=== PATIENT | female | born 1950 | race Caucasian/White ===

== ENCOUNTER 2017-03-28 21:06 | Emergency (ER) | payer OTHER ==
[2017-03-28 21:17] VITALS: BP 139/85; PULSE 96; TEMP 98.9; BMI 24.0
[2017-03-28] MEDS ORDERED: ASPIRIN 81 MG CHEWABLE TABLETS PO ONE (21:34)
[2017-03-28] MEDS ORDERED: MAG HYDROX/AL HYDROX/SIMETH 30 ML UNIT-DOSE CUP PO ONE (21:53)
[2017-03-28 22:19] LABS: BASO % 0.5 % (0-2.0); EOS % 1.4 % (0-4.5); HEMATOCRIT 45.4 % (32.4-45.2); HEMOGLOBIN 15.3 GM/dL (10.7-15.3); LYMPH % 26.6 % (8-40); MCH 30.8 pg (25.7-33.7); MCHC 33.7 g/dl (32.0-36.0); MEAN CELL VOLUME 91.2 fl (80-96); MEAN PLT VOLUME 8.8 fl (7.5-11.1); MONO % 5.7 % (3.8-10.2); NEUT % 65.8 % (42.8-82.8); PLATELET COUNT 140 K/MM3 (134-434); RBC 4.97 M/mm3 (3.60-5.2); RDW 14.1 % (11.6-15.6); WHITE BLOOD COUNT 10.1 K/mm3 (4.0-10.0)
--- NOTE | 2017-03-28 22:21 | PDOC ---
History of Present Illness - General History Source: Patient Exam Limitations: No Limitations <Rober Rodrigez - Last Filed: 03/28/17 22:21> <RandellShira Otero - Last Filed: 03/28/17 23:31> - General Chief Complaint: Chest Pain Stated Complaint: CHEST PAIN Time Seen by Provider: 03/28/17 21:12 - History of Present Illness Initial Comments: 03/28/17 22:21 The patient is a 67 year old female, with a significant past medical history of diabetes, hypertension and depression/anxiety, who presents to the emergency department with intermittent chest pain and associated shortness of breath since earlier today. The patient reports her pain is localized substernally sand is nonradiating in nature. She denies any associated shoulder/neck/back pain, diaphoresis, palpitations, or lower extremity edema. She denies any fever , chills, cough, headache,syncope, or dizziness. She denies any nausea or vomiting. Patient states she has been increasingly anxious lately, and is requesting medications for her anxiety. Patient reports she was previously on Seroquel, Effexor, Neurontin, and Ambien, but has not had her medications in several months. Patient also states she was previously on Metformin and is not compliant with her medications, because she ran out. During transport to the ER , patient reports her blood sugar was in the 400s. Patient denies any other complaints at this time. Allergies: NKDA Past Surgical History: None reported. Social History: Current everyday smoker(Approximately 1 pack per day for the past 50 years). PCP: Dr. Kc (Rober Rodrigez) Past History <Rober Rodrigez - Last Filed: 03/28/17 22:21> - Past Medical History Anemia: No Asthma: No Cancer: No Cardiac Disorders: No CVA: No COPD: No CHF: No Dementia: No Diabetes: Yes (type 2) GI Disorders: No Disorders: No HTN: No Hypercholesterolemia: No Liver Disease: No Seizures: No Thyroid Disease: No - Surgical History Abdominal Surgery: No Appendectomy: Yes Cardiac Surgery: No Cholecystectomy: No Lung Surgery: No Neurologic Surgery: No Orthopedic Surgery: No - Immunization History Td Vaccination: Yes TDAP Vaccination: Yes Immunization Up to Date: Yes - Suicide/Smoking/Psychosocial Hx Smoking Status: No Smoking History: Current every day smoker Years of Tobacco Use: 0 Have you smoked in the past 12 months: No Number of Cigarettes Smoked Daily: 0 Cigars Per Day: 0 Information on smoking cessation initiated: No Hx Alcohol Use: No Drug/Substance Use Hx: No Substance Use Type: None Hx Substance Use Treatment: No <Shira Mejias - Last Filed: 03/28/17 23:31> - Past Medical History Allergies/Adverse Reactions: Allergies Allergy/AdvReac Type Severity Reaction Status Date / Time No Known Allergies Allergy Verified 03/28/17 21:14 Home Medications: Ambulatory Orders metFORMIN HCL [Glucophage] 1,000 mg PO BID 09/12/12 Gabapentin [Neurontin -] 300 mg PO Q8H PRN 03/28/17 Metformin HCl [Glucophage] 1,000 mg PO BID #60 tablet 03/28/17 Quetiapine Fumarate [Seroquel -] 200 mg PO TID 03/28/17 Venlafaxine HCl ER [Effexor Xr -] 150 mg PO DAILY 03/28/17 Zolpidem Tartrate [Ambien] 10 mg PO HS 03/28/17 Cardiac Specific PMH - Complaint Specific PMHX Pacemaker: No <Shira Mejias - Last Filed: 03/28/17 23:31> Review of Systems - Review of Systems Able to Perform ROS?: Yes <Rober Rodrigez - Last Filed: 03/28/17 22:21> <Shira Mejias - Last Filed: 03/28/17 23:31> - Review of Systems Comments:: 03/28/17 22:21 CONSTITUTIONAL: Absent: fever, no chills, no fatigue EYES: Absent: visual changes ENT: Absent: ear pain, no sore throat CARDIOVASCULAR: Present: chest pain Absent: no palpitations RESPIRATORY: Present: shortness of breath. Absent: cough GI: Absent: abdominal pain, no nausea, no vomiting, no constipation, no diarrhea GENITOURINARY: Absent: dysuria, no frequency, no hematuria MUSKULOSKELETAL: Absent: back pain, no arthralgia, no myalgia SKIN: Absent: rash NEURO: Absent: headache PSYCH: Present: Anxious, requesting medications (Rober Rodrigez) *Physical Exam <Rober Rodrigez - Last Filed: 03/28/17 22:21> <Shira Mejias - Last Filed: 03/28/17 23:31> - Vital Signs Last Vital Signs Temp Pulse Resp BP Pulse Ox 98.9 F 96 H 20 139/85 97 03/28/17 21:15 03/28/17 21:15 03/28/17 21:15 03/28/17 21:15 03/28/17 21:15 - Physical Exam Comments: 03/28/17 22:21 GENERAL: Well developed. Awake and alert. No acute distress. Disheveled poorly kept 67 year old female requesting medications for her anxiety. HEENT: Normocephalic, atraumatic. PERRLA, EOMI. No conjunctival pallor. Sclera are non- icteric. Moist mucous membranes. Oropharynx is clear. NECK: Supple. Full ROM. No JVD. Carotid pulses 2+ and symmetric, without bruits. No thyromegaly. No lymphadenopathy. CARDIOVASCULAR: Regular rate and rhythm. No murmurs, rubs, or gallops. Distal pulses are 2+ and symmetric. PULMONARY: No evidence of respiratory distress. Lungs clear to auscultation bilaterally. No wheezing, rales or rhonchi. ABDOMINAL: Soft. Non-tender. Non-distended. No rebound or guarding. No organomegaly. Normoactive bowel sounds. MUSCULOSKELETAL Normal range of motion at all joints. No bony deformities or tenderness. EXTREMITIES: No cyanosis. No clubbing. No edema. No calf tenderness. SKIN: Warm and dry. Normal capillary refill. No rashes. No jaundice. NEUROLOGICAL: Alert, awake, oriented x3. Cranial nerves 2-12 intact. Normal gait. PSYCHIATRIC: Cooperative. States shes anxious, however appears very calm. Good eye contact. (Rober Rodrigez) ED Treatment Course - LABORATORY CBC & Chemistry Diagram: 03/28/17 22:13 03/28/17 22:13 <Rober Rodrigez - Last Filed: 03/28/17 22:21> - LABORATORY CBC & Chemistry Diagram: 03/28/17 22:13 03/28/17 22:13 <Shira Mejias - Last Filed: 03/28/17 23:31> - ADDITIONAL ORDERS Additional order review: Laboratory Results 03/28/17 03/28/17 03/28/17 23:23 22:46 22:13 Sodium 134 L Potassium 4.5 Chloride 98 Carbon Dioxide 26 Anion Gap 10 BUN 25 H Creatinine 1.0 Creat Clearance w eGFR 55.14 Random Glucose 297 H Calcium 9.0 Magnesium 1.9 Total Bilirubin 0.4 AST 20 ALT 42 Alkaline Phosphatase 124 H Creatine Kinase 36 Troponin I < 0.02 Total Protein 8.4 H Albumin 4.2 Acetone, Qual Trace H Cancelled 03/28/17 22:13 RBC 4.97 MCV 91.2 MCHC 33.7 RDW 14.1 MPV 8.8 D Neutrophils % 65.8 Lymphocytes % 26.6 Monocytes % 5.7 Eosinophils % 1.4 Basophils % 0.5 - RADIOLOGY Radiology Studies Ordered: Category Date Time Status CHEST PA & LAT [RAD] Stat Radiology 03/28/17 21:35 Ordered CHEST X-RAY PORTABLE* [RAD] Stat Radiology 03/28/17 21:52 Taken - Medications Given in the ED: ED Medications Discontinued Medications Generic Name Dose Route Start Last Admin Trade Name Freq PRN Reason Stop Dose Admin Al Hydroxide/Mg Hydroxide 30 ml 03/28/17 21:53 03/28/17 22:40 Mylanta Oral Suspension - PO 03/28/17 21:54 Not Given ONCE ONE Alprazolam 0.5 mg 03/28/17 23:23 03/28/17 23:24 Xanax - PO 03/28/17 23:24 0.5 mg NOW ONE Administration Aspirin 162 mg 03/28/17 21:34 03/28/17 22:40 Asa - PO 03/28/17 21:35 Not Given ONCE ONE Metformin HCl 1,000 mg 03/28/17 23:23 03/28/17 23:23 Glucophage - PO 03/28/17 23:24 1,000 mg NOW ONE Administration *DC/Admit/Observation/Transfer <Rober Rodrigez - Last Filed: 03/28/17 22:21> <Shira Mejias - Last Filed: 03/28/17 23:31> Diagnosis at time of Disposition: Hyperglycemia, Noncompliance with diabetes treatment, Anxiety - Discharge Dispostion Disposition: HOME Condition at time of disposition: Stable - Prescriptions Prescriptions: Metformin HCl [Glucophage] 1,000 mg PO BID #60 tablet - Referrals Referrals: Taco Kc MD [Primary Care Provider] - - Patient Instructions Printed Discharge Instructions: DI for Atypical Chest Pain, DI for Diabetes Type 2, DI for Hyperglycemia -- Adult Additional Instructions: You must followup with your regular physician and please take your medicine for your diabetes - Post Discharge Activity - Attestations Scribe Attestion: 03/28/17 22:22 Documentation prepared by Rober Rodrigez, acting as medical assistant float for Shira Mejias MD. (Rober Rodrigez)
[2017-03-28 22:35] LABS: ALBUMIN 4.2 g/dl (3.4-5.0); ANION GAP 10 (8-16); BLOOD UREA NITROGEN 25 mg/dL (7-18); CHLORIDE 98 mmol/L (98-107); CO2 26 mmol/L (21-32); GLUCOSE,RANDOM 297 mg/dL (74-106); MAGNESIUM 1.9 mg/dL (1.8-2.4); POTASSIUM 4.5 mmol/L (3.5-5.1); SODIUM 134 mmol/L (136-145)
[2017-03-28 22:39] LABS: BILIRUBIN,TOTAL 0.4 mg/dL (0.2-1.0); SGOT/AST 20 U/L (15-37); SGPT/ALT 42 U/L (12-78); TOT PROT 8.4 g/dl (6.4-8.2)
[2017-03-28 22:42] LABS: ALK PHOS 124 U/L (45-117)
[2017-03-28] MEDS ORDERED: ALPRAZolam 0.25 MG TABLET ONE (23:17)
[2017-03-28] MEDS ORDERED: metFORMIN HCL 500 MG TABLET (FP) ONE ×2 (23:17→23:35)
[2017-03-28] MEDS ORDERED: metFORMIN HCL 500 MG TABLET (FP) PO ONE ×2 (23:23→23:28)
[2017-03-28] MEDS ORDERED: ALPRAZolam 0.25 MG TABLET PO ONE (23:23)
--- NOTE | 2017-03-29 16:43 | EKG ---
Test Reason : Blood Pressure : / mmHG Vent. Rate : 094 BPM Atrial Rate : 094 BPM P-R Int : 154 ms QRS Dur : 076 ms QT Int : 344 ms P-R-T Axes : 069 073 042 degrees QTc Int : 430 ms NORMAL SINUS RHYTHM POSSIBLE LEFT ATRIAL ENLARGEMENT BORDERLINE ECG WHEN COMPARED WITH ECG OF 01-MAY-2013 20:43, NO SIGNIFICANT CHANGE WAS FOUND Confirmed by MD Acosta, Derrick ([id number]) on 03/29/2017 4:42:43 PM Referred By: Confirmed By:Derrick Shane MD
== END 2017-03-28 23:44 | disposition home or self-care (01) ==
LOC: JER 21:06
DX: E11.65 Type 2 diabetes mellitus with hyperglycemia (principal); Z79.84 Long term (current) use of oral hypoglycemic drugs; Z91.14 Patient's other noncompliance with medication regimen; F41.8 Other specified anxiety disorders; F17.210 Nicotine dependence, cigarettes, uncomplicated
CPT/HCPCS: 36415; 71045-TC; 80053; 82009; 82550; 83735; 84484; 85025; 93005; 93010; 99283-25

== ENCOUNTER 2018-08-28 00:12 | Inpatient (IN) | payer MEDICARE, OTHER | END 2018-09-07 16:00 | disposition home health service (06) | LOC: JER 00:12 → JERBED 02:54 → J8W 06:16 ==

== ENCOUNTER 2018-09-08 19:43 | Inpatient (IN) | payer MEDICARE, OTHER | END 2018-09-28 14:48 | disposition home health service (06) | LOC: JER 22:39 → J8W 22:20 → JERBED 22:39 ==

== ENCOUNTER 2019-01-26 16:42 | Inpatient (IN) | payer BC, OTHER ==
--- NOTE | 2019-01-26 16:56 | PDOC ---
History of Present Illness - General Chief Complaint: Blood Sugar Problem Stated Complaint: HYPERTENSION Time Seen by Provider: 01/26/19 16:53 - History of Present Illness Initial Comments: 01/26/19 18:20 68 y/o F hx of HTN, T2DM, depression,COPD and non-compliance with medication regimen presents to the ER after falling at home. She is not the best historian. She reports falling on the floor while getting up from the couch. She fell on her back and denies hitting her head. She reports being on the floor for about an hour before calling EMS. She has been able to ambulate while here in the ER.She denies LOC, nausea,vomiting, diarrhea, bloody stools, fevers , chills. She is unable to tell us if she was lightheaded or felt dizzy prior to falling or afterwards. Past History - Past Medical History Allergies/Adverse Reactions: Allergies Allergy/AdvReac Type Severity Reaction Status Date / Time No Known Allergies Allergy Verified 01/26/19 17:14 Home Medications: Ambulatory Orders Gabapentin [Neurontin -] 300 mg PO Q8H PRN 03/28/17 Metformin HCl [Glucophage] 1,000 mg PO BID #60 tablet 03/28/17 Venlafaxine HCl ER [Effexor Xr -] 150 mg PO DAILY 03/28/17 Acetaminophen [Tylenol .Regular Strength -] 650 mg PO Q6H PRN tablet 09/06/18 Bacitracin - [Bacitracin Topical Ointment -] 1 applic TP DAILY #90 applic Insulin (Levemir) [Levemir Vial] 30 units SQ AM units 09/06/18 Insulin Sliding Scale [Novolog Vial Sliding Scale -] 1 vial SQ ACHS units 09/06 Nystatin Cream [Mycostatin Cream -] 1 applic TP BID #90 applic 09/06/18 Nystatin Powder [Nystop Powder -] 1 applic TP BID applic 09/06/18 Nystatin/Triamcinolone Top Cr [Mycolog II -] 2 applic TP BID applic 09/06/18 Ondansetron [Zofran *Odt*] 4 mg SL Q6H PRN tab.rapdis 09/06/18 Quetiapine Fumarate [Seroquel -] 200 mg PO HS #30 tab 09/06/18 Sitagliptin Phosphate [Januvia] 50 mg PO BID #60 tablet 09/06/18 metFORMIN HCL [Metformin HCl] 500 mg PO BID #60 tablet 09/06/18 Albuterol Sulfate [Albuterol Sulfate Hfa] 8.5 gm IH QID #3 hfa.aer.ad 09/07/18 Budesonide/Formeterol Fumarate [SYMBICORT 80/4.5mcg -] 1 inh PO BID #1 cannister 09/07/18 Tiotropium Crawford [Spiriva Respimat] 4 gm IH DAILY #1 mist.inhal 09/07/18 Acetaminophen [Tylenol .Regular Strength -] 650 mg PO Q6H PRN tablet 09/12/18 Glimepiride [Amaryl -] 4 mg PO DAILY@0700 #30 tablet 09/12/18 Clindamycin [Cleocin -] 300 mg PO TID #15 capsule 09/27/18 Fludrocortisone Acetate [Florinef -] 0.1 mg PO BID #60 tablet 09/27/18 Glimepiride [Amaryl -] 4 mg PO BIDAC #60 tablet 09/27/18 Lactobacillus Acidophilus [Acidophilus] 1 each PO DAILY #30 capsule 09/27/18 Mupirocin Cream [Bactroban 2% Cream -] 1 applic TP BID #60 tube 09/27/18 Quetiapine Fumarate [Seroquel -] 200 mg PO TID #90 tablet 09/27/18 Sitagliptin Phosphate [Januvia -] 50 mg PO DAILY@0700 #30 tablet 09/27/18 Anemia: No Asthma: No Cancer: No Cardiac Disorders: No CVA: No COPD: No CHF: No Dementia: No Diabetes: Yes (type 2) GI Disorders: No Disorders: No HTN: Yes Hypercholesterolemia: No Liver Disease: No Seizures: No Thyroid Disease: No - Surgical History Abdominal Surgery: No Appendectomy: Yes Cardiac Surgery: No Cholecystectomy: No Lung Surgery: No Neurologic Surgery: No Orthopedic Surgery: No - Immunization History Td Vaccination: Yes TDAP Vaccination: Yes Immunization Up to Date: Yes - Psycho Social/Smoking Cessation Hx Smoking Status: No Smoking History: Current every day smoker Years of Tobacco Use: 0 Have you smoked in the past 12 months: Yes Number of Cigarettes Smoked Daily: 5 If you are a former smoker, when did you quit?: 1 month ago Cigars Per Day: 0 'Breaking Loose' booklet given: 08/28/18 Hx Alcohol Use: No Drug/Substance Use Hx: No Substance Use Type: None Hx Substance Use Treatment: No *Physical Exam - Physical Exam 01/26/19 18:29 PE: GENERAL: Awake, alert, and fully oriented, in no acute distress HEAD: No signs of trauma, normocephalic, atraumatic EYES: PERRLA, EOMI, sclera anicteric, conjunctiva clear ENT: Auricles normal inspection, hearing grossly normal, nares patent, oropharynx clear without exudates. Dry lips NECK: Normal ROM, supple, no lymphadenopathy, JVD, or masses LUNGS: No distress, speaks full sentences, clear to auscultation bilaterally. left clavicular tenderness on palpation. ROM intact HEART: Regular rate and rhythm, normal S1 and S2, no murmurs, rubs or gallops, peripheral pulses normal and equal bilaterally. ABDOMEN: Soft, nontender, normoactive bowel sounds. No guarding, no rebound. No masses EXTREMITIES : right leg more swollen than left and erythematous. does not feel warm to to touch.scratches on both legs. Normal range of motion, no edema. No clubbing or cyanosis NEUROLOGICAL: Cranial nerves II through XII grossly intact. Normal speech, normal gait, no focal sensorimotor deficits SKIN: Warm, Dry, normal turgor, no rashes or lesions noted ED Treatment Course - LABORATORY CBC & Chemistry Diagram: 01/28/19 05:55 01/29/19 10:20 Medical Decision Making - Medical Decision Making 01/26/19 18 68y/o F hx of T2DM, noncompliant with medications bibems s/p fall denies dizziness, head trauma, lightheadedness or LOC evaluate for possible DKA, HHS as well as cellulitis also concern for cat scratch disease. POC glucose 541 hyperglycemia likely due to non-compliance possible syncopal event reports scratching from cats ,might need Po meds for cat scratch disease EKG, cbc, cmp, ua urine culture, blood culture, VBG, EKG: sinus tachycardia, possible left atrial enlargement 01/26/19 21:58 Labs came back remarkable for PH 7.2 Beta-hydroxybutyrate 88 POC glucose 507 hospitalist messaged for admission spoke with hospitalist. recommends ICU admit ICU team currently evaluating patient at bedside. Pt given azithromycin and cefazolin. 01/27/19 01:54 Pt has been admitted to the floor (telemetry) for dka and possible cellulitis -glucose at this time is 156 repeat cmp has been sent Pt has been receiving insulin will now add d5 at 50mls/hr now that glucose is below [address] Dangelo Discharge - Discharge Information Problems reviewed: Yes Clinical Impression/Diagnosis: Weakness DKA (diabetic ketoacidoses) Qualifiers: Diabetes mellitus type: type 2 Diabetes mellitus complication detail: without coma Qualified Code(s): E11.10 - Type 2 diabetes mellitus with ketoacidosis without coma Condition: Stable - Follow up/Referral - Patient Discharge Instructions - Post Discharge Activity
--- NOTE | 2019-01-26 17:00 | PDOC ---
Attending Attestation - Resident Resident Name: Lseli Hernandez - HPI HPI: 01/26/19 18:03 Pt presents to the ED after unwitnessed fall that occurred while walking to the bathroom. Patient is an extremely poor historian and is unable to describe the circumstances of the fall, but does report lightheadness prior to the fall. She has multiple cats which frequently scratch her. Patient denies - Physicial Exam PE: 01/26/19 22:23 Pt is alert and oriented and in no acute distress. lungs are clear. CV: rrr, no m/r/g. Pulm: CTA b/l. Abdomen: soft, non tender, non distended without guarding or rebound. ext: muliple excoriations consistent with cat scratches. + 6 cm area of erythema on RLE consistent with cellulitis. - Critical Care Time Total Critical Care Time: 40 Critical Care Statement: The care of this patient involved high complexity decision making to prevent further life threatening deterioration of the patient 's condition and/or to evaluate & treat vital organ system(s) failure or risk of failure. - Medical Decision Making 01/26/19 22:26 Pt presents to the ED complaining of unwitnessed fall. Uncertain whether patient had syncope or mechanical fall. Patient is chronically non compliant with her DM medication and is extremely hyperglycemic in the ED. + cellulitis of the LLE likely caused by cat scratch--given immunocompromise, will require IV antibiotics. Labs show DKA--IV placed by me. Insulin bolus and drip started and aggressive fluid hydration started. Will consult ICU and admit .
[2019-01-26] MEDS ORDERED: SODIUM CHLORIDE 0.9% 500 ML INFUS.BAG IV ONE (18:03)
[2019-01-26] MEDS ORDERED: CEFAZOLIN 1 GM in DEXTROSE 5%-WATER - 50 ML IVPB ONE (19:57)
[2019-01-26] MEDS ORDERED: AZITHROMYCIN IVPB 500 MG in DEXTROSE 5%-WATER - 250 ML IVPB ONE (19:57)
[2019-01-26 20:13] LABS: BASO % 0.3 % (0-2.0); EOS % 0.1 % (0-4.5); HEMATOCRIT 35.4 % (32.4-45.2); HEMOGLOBIN 11.3 GM/dL (10.7-15.3); LYMPH % 7.4 % (8-40); MCH 28.3 pg (25.7-33.7); MCHC 32.1 g/dl (32.0-36.0); MEAN CELL VOLUME 88.3 fl (80-96); MEAN PLT VOLUME 8.7 fl (7.5-11.1); MONO % 8.8 % (3.8-10.2); NEUT % 83.4 % (42.8-82.8); PLATELET COUNT 218 K/MM3 (134-434); RBC 4.01 M/mm3 (3.60-5.2); WHITE BLOOD COUNT 15.8 K/mm3 (4.0-10.0)
[2019-01-26 20:15] LABS: VENOUS PO2 < 49 mmHg (28-48)
[2019-01-26 20:52] LABS: ALBUMIN 3.4 g/dl (3.4-5.0); ALK PHOS 123 U/L (45-117); ANION GAP 18 MMOL/L (8-16); BILIRUBIN,TOTAL 0.6 mg/dL (0.2-1); BLOOD UREA NITROGEN 37.4 mg/dL (7-18); CALCIUM 9.6 mg/dL (8.5-10.1); CHLORIDE 92 mmol/L (98-107); CO2 17 mmol/L (21-32); CREATININE 1.8 mg/dL (0.55-1.3); MAGNESIUM 2.5 mg/dL (1.8-2.4); POTASSIUM 5.3 mmol/L (3.5-5.1); SGOT/AST 10 U/L (15-37); SGPT/ALT 28 U/L (13-61); SODIUM 127 mmol/L (136-145)
[2019-01-26 20:53] LABS: GLUCOSE,RANDOM 548 mg/dL (74-106)
[2019-01-26] MEDS ORDERED: AZITHROMYCIN IVPB 500 MG/250 ML BAG IVPB ONE (21:00)
[2019-01-26] MEDS ORDERED: CEFAZOLIN 1 GM/D5W 1 GM/50 ML BAG ONE (21:01)
[2019-01-26] MEDS ORDERED: ACETAMINOPHEN 1000 MG/100 ML VIAL (NON FORMULARY) IVPB ONE (21:03)
[2019-01-26] MEDS ORDERED: INSULIN REGULAR HUMAN 100 UNITS/ML *VIAL IVPUSH ONE (21:04)
[2019-01-26] MEDS ORDERED: INSULIN REGULAR 100 UNITS in SODIUM CHLORIDE 99 ML IVPB SCH ×2 (21:15→22:45)
[2019-01-26] MEDS ORDERED: ACETAMINOPHEN INJECTION 100 ML IVPB ONE (21:26)
[2019-01-26] MEDS ORDERED: morphine CARPU-JECT 2 MG/1 ML DISP.SYRIN IVPUSH ONE (22:20)
[2019-01-26] MEDS ORDERED: MORPHINE SULFATE 2 MG/ML VIAL ONE (22:21)
--- NOTE | 2019-01-26 22:35 | HP ---
Admitting History and Physical - Primary Care Physician PCP: Dr. Yoo - Admission Chief Complaint: Non- compliant, poor DM management History of Present Illness: 68 y/o F hx of HTN, T2DM, Anxiety,depression,COPD and non-compliance with medication regimen arrived to Emergency room at [facility] post fall at home. Patient is not the best historian, reports falling on the floor while getting up from the couch. She fell on her back and denies hitting her head. Patient complain of dizziness, headache, nausea and right lower leg pain. She reports being on the floor for about an hour before calling EMS. She has been able to ambulate while here in the ER. She denies LOC, vomiting, diarrhea, bloody stools, fevers , chills. Patient states she lives alone. History Source: Patient Limitations to Obtaining History: Poor Historian - Past Medical History Cardiovascular: Yes: HTN Pulmonary: Yes: COPD (?) Renal/: Yes: Renal Inusuff Psych: Yes: Anxiety, Depression Endocrine: Yes: Diabetes Mellitus - Past Surgical History Past Surgical History: Yes: Appendectomy - Smoking History Smoking history: Current every day smoker Have you smoked in the past 12 months: Yes Aproximately how many cigarettes per day: 5 If you are a former smoker, when did you quit?: 1 month ago - Alcohol/Substance Use Hx Alcohol Use: No History of Substance Use: reports: None - Social History Usual Living Arrangement: Yes: Alone ADL: Independent History of Recent Travel: No Home Medications - Allergies Allergies/Adverse Reactions: Allergies Allergy/AdvReac Type Severity Reaction Status Date / Time No Known Allergies Allergy Verified 01/26/19 17:14 - Home Medications Home Medications: Ambulatory Orders Gabapentin [Neurontin -] 300 mg PO Q8H PRN 03/28/17 Metformin HCl [Glucophage] 1,000 mg PO BID #60 tablet 03/28/17 Venlafaxine HCl ER [Effexor Xr -] 150 mg PO DAILY 03/28/17 Acetaminophen [Tylenol .Regular Strength -] 650 mg PO Q6H PRN tablet 09/06/18 Bacitracin - [Bacitracin Topical Ointment -] 1 applic TP DAILY #90 applic Insulin (Levemir) [Levemir Vial] 30 units SQ AM units 09/06/18 Insulin Sliding Scale [Novolog Vial Sliding Scale -] 1 vial SQ ACHS units 09/06 Nystatin Cream [Mycostatin Cream -] 1 applic TP BID #90 applic 09/06/18 Nystatin Powder [Nystop Powder -] 1 applic TP BID applic 09/06/18 Nystatin/Triamcinolone Top Cr [Mycolog II -] 2 applic TP BID applic 09/06/18 Ondansetron [Zofran *Odt*] 4 mg SL Q6H PRN tab.rapdis 09/06/18 Quetiapine Fumarate [Seroquel -] 200 mg PO HS #30 tab 09/06/18 Sitagliptin Phosphate [Januvia] 50 mg PO BID #60 tablet 09/06/18 metFORMIN HCL [Metformin HCl] 500 mg PO BID #60 tablet 09/06/18 Albuterol Sulfate [Albuterol Sulfate Hfa] 8.5 gm IH QID #3 hfa.aer.ad 09/07/18 Budesonide/Formeterol Fumarate [SYMBICORT 80/4.5mcg -] 1 inh PO BID #1 cannister 09/07/18 Tiotropium [place] [Spiriva Respimat] 4 gm IH DAILY #1 mist.inhal 09/07/18 Acetaminophen [Tylenol .Regular Strength -] 650 mg PO Q6H PRN tablet 09/12/18 Glimepiride [Amaryl -] 4 mg PO DAILY@0700 #30 tablet 09/12/18 Clindamycin [Cleocin -] 300 mg PO TID #15 capsule 09/27/18 Fludrocortisone Acetate [Florinef -] 0.1 mg PO BID #60 tablet 09/27/18 Glimepiride [Amaryl -] 4 mg PO BIDAC #60 tablet 09/27/18 Lactobacillus Acidophilus [Acidophilus] 1 each PO DAILY #30 capsule 09/27/18 Mupirocin Cream [Bactroban 2% Cream -] 1 applic TP BID #60 tube 09/27/18 Quetiapine Fumarate [Seroquel -] 200 mg PO TID #90 tablet 09/27/18 Sitagliptin Phosphate [Januvia -] 50 mg PO DAILY@0700 #30 tablet 09/27/18 Family Medical History Family History: Denies Review of Systems - Review of Systems Constitutional: reports: No Symptoms Eyes: reports: No Symptoms HENT: reports: No Symptoms Neck: reports: No Symptoms Cardiovascular: reports: No Symptoms Respiratory: reports: No Symptoms Gastrointestinal: reports: Nausea Genitourinary: reports: No Symptoms Musculoskeletal: reports: No Symptoms Integumentary: reports: Other (multiple scratch phillips b/l LE ( pet cat)) Neurological: reports: Dizziness, Headache Endocrine: reports: No Symptoms Hematology/Lymphatic: reports: No Symptoms Psychiatric: reports: Anxiety Physical Examination Vital Signs: Vital Signs Temperature 98.8 F 01/26/19 18:21 Pulse Rate 111 H 01/26/19 20:55 Respiratory Rate 15 01/26/19 20:55 Blood Pressure 129/78 01/26/19 20:55 O2 Sat by Pulse Oximetry (%) 98 01/26/19 20:55 Constitutional: Yes: No Distress, Calm Eyes: Yes: Conjunctiva Clear, EOM Intact HENT: Yes: Atraumatic, Normocephalic Neck: Yes: Supple, Trachea Midline Cardiovascular: Yes: Tachycardia, S1, S2 Respiratory: Yes: Regular, CTA Bilaterally Gastrointestinal: Yes: Normal Bowel Sounds, Soft Renal/: Yes: WNL Musculoskeletal: Yes: WNL Extremities: Yes: Erythema, Other ( right leg more swollen than left and erythematous, slight warm to touch) Edema: No Peripheral Pulses WNL: Yes Integumentary: Yes: Erythema, Other ( right leg more swollen than left and erythematous, slight warm to touch) Neurological: Yes: Alert, Oriented Psychiatric: Yes: WNL, Alert Labs: CBC, BMP 01/26/19 19:19 01/26/19 19:19 Imaging - Results Chest X-ray: Report Reviewed (no acute infiltrate/ consolidation noted) EKG: Report Reviewed (EKG: sinus tachycardia, possible left atrial enlargement) Problem List - Problems (1) DKA, type 2, not at goal Code(s): E11.10 - TYPE 2 DIABETES MELLITUS WITH KETOACIDOSIS WITHOUT COMA (2) Cellulitis Code(s): L03.90 - CELLULITIS, UNSPECIFIED (3) Hyperkalemia Code(s): E87.5 - HYPERKALEMIA (4) Hypermagnesemia Code(s): E83.41 - HYPERMAGNESEMIA (5) Status post fall Code(s): Z91.81 - HISTORY OF FALLING (6) ELIZABETH (acute kidney injury) Code(s): N17.9 - ACUTE KIDNEY FAILURE, UNSPECIFIED (7) COPD (chronic obstructive pulmonary disease) Code(s): J44.9 - CHRONIC OBSTRUCTIVE PULMONARY DISEASE, UNSPECIFIED (8) Anxiety Code(s): F41.9 - ANXIETY DISORDER, UNSPECIFIED (9) Depression Code(s): F32.9 - MAJOR DEPRESSIVE DISORDER, SINGLE EPISODE, UNSPECIFIED (10) HTN (hypertension) Code(s): I10 - ESSENTIAL (PRIMARY) HYPERTENSION Assessment/Plan 68 y/o F hx of HTN, T2DM, Anxiety,depression,COPD and non-compliance with medication regimen arrived to Emergency room at [facility] post fall at home. Patient is not the best historian, reports falling on the floor while getting up from the couch. She fell on her back and denies hitting her head. Patient complain of dizziness, headache, nausea and right lower leg pain. # DKA Random glucose: 584, POC: 507+ Ph: 7.2, Beta hydro: 88, Anion gap: 18 UA: + for glucose/ ketones In ED given :s/p 1 L NS, 7 units pushx1, Insulin drip in ED -patient also seen and examined by ICU resident - repeat POC: 301, 156 - ED started on D5W IV, Repeat labs, anion gap closed, insulin stopped, lytes being corrected by ED - POC: 156, [place] glucose: 106 - monitor POC q 2-3 hours - once K corrected, will start sliding scale insulin - follow up Endo in AM - diabetic medication needs to be verified with pharmacy in AM # cellulitis Right lower leg wbc:15.8 lactic acid: 1.1 CXR: no acute infiltrate - s/p IV tylenol, given cefazolin and Azithromycin IV in ED x1 - given 2 mg Morphine IV push for right leg pain - follow up urine, blood wound - follow up ID - Pain management PRN - repeat cbc in AM #Hyperkalemia #Hypermagnesemia # Hypocalemia - K: 5.3, Mg+: 2.5 - K dropped to 2.3, left EJ placed in ED run of 10 mEq K+, po 40 mEq K+ Insulin drip stopped until K +between (above 3.3) - ca+ supplement x1 - monitor BMP closely, correct lytes #ELIZABETH baseline 1.3, given 1 L NS, D5W in ED, cr: 0.8 - trend Cr level, avoid nephro toxin # s/p fall - denies head injury, no LOC - monitor for safety.fall precaution # COPD -Albuterol Sulfate 8.5 gm IH QID -Budesonide/Formeterol Fumarate 1 IH PO BID -Tiotropium [place] 4 gm IH DAILY # HTN - no home meds, BP stable - monitor closely # Anxiety/depression -Quetiapine Fumarate 200 mg PO HS -Venlafaxine HCl ER 150 mg PO DAILY Monitor acute behavioral changes Home medication needs to be verified in AM FEN: NS IVF, replete lytes, JAMES/NCS diet VTE: Heparin SQ TID Dispo: telemetry Visit type - Emergency Visit Emergency Visit: Yes ED Registration Date: 01/27/19 Care time: The patient presented to the Emergency Department on the above date and was hospitalized for further evaluation of their emergent condition. - New Patient This patient is new to me today: Yes Date on this admission: 01/27/19 - Critical Care Critical Care patient: Yes Total Critical Care Time (in minutes): 32 Critical Care Statement: The care of this patient involved high complexity decision making to prevent further life threatening deterioration of the patient 's condition and/or to evaluate & treat vital organ system(s) failure or risk of failure.
[2019-01-27] MEDS ORDERED: morphine CARPU-JECT 2 MG/1 ML DISP.SYRIN IVPUSH ONE (01:14)
[2019-01-27 01:23] LABS: EPI CELLS 2.6 /HPF (0-5/HPF); HYALINE CASTS 1 /lpf (0-8); URINE APPEARANCE CLOUDY; URINE BACTERIA 2.2 /hpf (NEGATIVE); URINE BILIRUBIN NEGATIVE (NEGATIVE); URINE COLOR YELLOW; URINE GLUCOSE (UA) 3+ (NEGATIVE); URINE KETONE 3+ (NEGATIVE); URINE LEUK ESTERASE NEGATIVE (NEGATIVE); URINE NITRITE NEGATIVE (NEGATIVE); URINE PROTEIN 1+ (NEGATIVE); URINE RBC 7 /hpf (0-4); URINE UROBILINOGEN 0.2 mg/dL (0.2-1.0); YEAST REVIEW (NEGATIVE)
[2019-01-27] MEDS ORDERED: DEXTROSE 5%-WATER - 1,000 ML IV SCH (01:30)
[2019-01-27] MEDS ORDERED: MORPHINE SULFATE 2 MG/ML VIAL ONE (01:35)
[2019-01-27] MEDS ORDERED: DEXTROSE 5%-WATER - 1,000 ML IV ONE (02:00)
[2019-01-27 02:34] LABS: ALBUMIN 1.6 g/dl (3.4-5.0); BILIRUBIN,TOTAL 0.2 mg/dL (0.2-1); BLOOD UREA NITROGEN 23.2 mg/dL (7-18); CREATININE 0.8 mg/dL (0.55-1.3); TOT PROT 3.8 g/dl (6.4-8.2)
[2019-01-27 02:36] LABS: CALCIUM 5.1 mg/dL (8.5-10.1); POTASSIUM 2.3 mmol/L (3.5-5.1)
[2019-01-27] MEDS ORDERED: POTASSIUM CHLORIDE ORAL LIQUID 20 MEQ/15 ML PO ONE (02:39)
--- NOTE | 2019-01-27 02:42 | PDOC ---
*Physical Exam - Vital Signs Last Vital Signs Temp Pulse Resp BP Pulse Ox 98.8 F 98 H 17 110/70 99 01/26/19 18:21 01/27/19 01:52 01/27/19 01:52 01/27/19 01:52 01/27/19 01:52 ED Treatment Course - LABORATORY CBC & Chemistry Diagram: 01/27/19 06:10 01/27/19 17:29 - ADDITIONAL ORDERS Additional order review: Laboratory Results 01/27/19 01/27/19 01/27/19 01:14 01:10 01:10 VBG pH POC VBG pCO2 POC VBG pO2 VBG HCO3 VBG O2 Sat ([place]) VBG Base Excess Sodium 142 Potassium 2.3 L* Chloride 122 H Carbon Dioxide 11 L Anion Gap 9 BUN 23.2 H Creatinine 0.8 Est GFR (CKD-EPI)AfAm 87.18 Est GFR (CKD-EPI)NonAf 75.22 POC Glucometer 156 Random Glucose 106 Lactic Acid Calcium 5.1 L* Magnesium Total Bilirubin 0.2 AST 5 L ALT 13 Alkaline Phosphatase 58 Creatine Kinase Troponin I Total Protein 3.8 L Albumin 1.6 L Beta-Hydroxybutyrate Urine Color Yellow Urine Appearance Cloudy Urine pH 5.0 Ur Specific [place] 1.026 Urine Protein 1+ H Urine Glucose (UA) 3+ H Urine Ketones 3+ H Urine Blood 1+ H Urine Nitrite Negative Urine Bilirubin Negative Urine Urobilinogen 0.2 Ur Leukocyte Esterase Negative Urine RBC (Auto) 7 Urine Casts (Auto) 1 U Epithel Cells (Auto) 2.6 Urine Bacteria (Auto) 2.2 01/26/19 01/26/19 01/26/19 23:44 22:33 19:40 VBG pH POC VBG pCO2 POC VBG pO2 VBG HCO3 VBG O2 Sat (Heron) VBG Base Excess Sodium Potassium Chloride Carbon Dioxide Anion Gap BUN Creatinine Est GFR (CKD-EPI)AfAm Est GFR (CKD-EPI)NonAf POC Glucometer 301 507 Random Glucose Lactic Acid 1.1 Calcium Magnesium Total Bilirubin AST ALT Alkaline Phosphatase Creatine Kinase Troponin I Total Protein Albumin Beta-Hydroxybutyrate Urine Color Urine Appearance Urine pH Ur Specific [place] Urine Protein Urine Glucose (UA) Urine Ketones Urine Blood Urine Nitrite Urine Bilirubin Urine Urobilinogen Ur Leukocyte Esterase Urine RBC (Auto) Urine Casts (Auto) U Epithel Cells (Auto) Urine Bacteria (Auto) 01/26/19 01/26/19 01/26/19 19:19 19:19 17:11 VBG pH 7.20 L POC VBG pCO2 44.0 POC VBG pO2 < 49 H VBG HCO3 16.3 L VBG O2 Sat ([place]on) 16.5 L VBG Base Excess -11.0 L Sodium 127 L Potassium 5.3 H Chloride 92 L Carbon Dioxide 17 L Anion Gap 18 H BUN 37.4 H Creatinine 1.8 H Est GFR (CKD-EPI)AfAm 32.71 Est GFR (CKD-EPI)NonAf 28.22 POC Glucometer 541 Random Glucose 548 H* Lactic Acid Calcium 9.6 Magnesium 2.5 H Total Bilirubin 0.6 AST 10 L ALT 28 Alkaline Phosphatase 123 H Creatine Kinase 59 Troponin I < 0.02 Total Protein 8.0 Albumin 3.4 Beta-Hydroxybutyrate 88.0 H Urine Color Urine Appearance Urine pH Ur Specific [place] Urine Protein Urine Glucose (UA) Urine Ketones Urine Blood Urine Nitrite Urine Bilirubin Urine Urobilinogen Ur Leukocyte Esterase Urine RBC (Auto) Urine Casts (Auto) U Epithel Cells (Auto) Urine Bacteria (Auto) 01/27/19 01/26/19 01/26/19 01:14 23:44 19:40 RBC MCV MCHC RDW MPV Neutrophils % Lymphocytes % Monocytes % Eosinophils % Basophils % POC Glucometer 156 301 507 01/26/19 01/26/19 19:19 17:11 RBC 4.01 MCV 88.3 MCHC 32.1 RDW 13.0 D MPV 8.7 Neutrophils % 83.4 H D Lymphocytes % 7.4 L D Monocytes % 8.8 Eosinophils % 0.1 D Basophils % 0.3 POC Glucometer 541 - Medications Given in the ED: ED Medications Discontinued Medications Generic Name Dose Route Start Last Admin Trade Name Freq PRN Reason Stop Dose Admin Acetaminophen 1,000 mg 01/26/19 21:03 01/26/19 22:45 Ofirmev Injection - IVPB 01/26/19 21:04 1,000 mg ONCE ONE Administration Azithromycin 500 mg/ Dextrose 250 mls @ 250 mls/hr 01/26/19 19:57 01/26/19 22 :20 IVPB 01/26/19 20:56 250 mls/hr ONCE ONE Administration Cefazolin Sodium 1 gm/ 50 mls @ 100 mls/hr 01/26/19 19:57 01/26/19 21:12 Dextrose IVPB 01/26/19 20:26 100 mls/hr ONCE ONE Administration Insulin Human Regular 100 100 mls @ 508.02 mls/hr 01/26/19 21:15 01/26/19 22: 45 units/ Sodium Chloride IVPB Not Given TITR KACIE Protocol 7 UNITS/KG/HR Insulin Human Regular 7 units 01/26/19 21:04 01/26/19 22:19 Novolin R Vial *For Ivpush Or Iv Drip Only* IVPUSH 01/26/19 21:05 7 units ONCE ONE Administration Morphine Sulfate 2 mg 01/26/19 22:20 01/26/19 22:44 Morphine Injection - IVPUSH 01/26/19 22:21 2 mg ONCE ONE Administration Morphine Sulfate 2 mg 01/27/19 01:14 01/27/19 01:51 Morphine Injection - IVPUSH 01/27/19 01:15 2 mg ONCE ONE Administration Sodium Chloride 1,000 ml 01/26/19 18:03 01/26/19 18:05 Normal Saline - IV 01/26/19 18:04 1,000 ml ONCE ONE Administration Medical Decision Making - Medical Decision Making 01/27/19 02:41 Pt is admitted to the [facility]; however she lost her 2nd IV line. I placed one in her left EJ. Pt's K+ is 2.3 She will be given a run of 10 mEq K + and she will be given oral 40 mEq K+ and I will temporarily stop her insulin. Pt needs to be taken to the floor and seen by admitting docs. Discharge - Discharge Information Problems reviewed: Yes Clinical Impression/Diagnosis: Weakness - Follow up/Referral - Patient Discharge Instructions - Post Discharge Activity
[2019-01-27] MEDS ORDERED: KCL 10 MEQ IVPB 100 ML IVPB SCH ×2 (02:45→03:15)
[2019-01-27] MEDS ORDERED: POTASSIUM CHLORIDE TABS 20 MEQ TABLET.ER (FP) PO ONE ×2 (02:46)
[2019-01-27] MEDS ORDERED: POTASSIUM CHLORIDE 20 MEQ PREMIX IVPB 100 ML IVPB SCH ×2 (03:00→03:45)
[2019-01-27] MEDS ORDERED: KCL 10 MEQ IVPB 10 MEQ/100 ML INFUS.BAG IVPB ONE ×3 (03:03→08:19)
[2019-01-27] MEDS ORDERED: CALCIUM GLUCONATE 10% - 1,000 MG/10 ML VIAL IVPB ONE (03:08)
[2019-01-27] MEDS ORDERED: GABAPENTIN 300 MG CAPSULE (FP) PO PRN (03:09)
[2019-01-27] MEDS: KCL 10 MEQ IVPB 10 MEQ/100 ML INFUS.BAG IVPB SCH ×5 (04:23→08:26)
[2019-01-27 05:10] LABS: URINE WBC 22.5 /hpf (0-5)
[2019-01-27] MEDS ORDERED: HEPARIN NA (PORCINE) 5,000 UNITS/ML 1ML VIAL ONE ×2 (06:34→15:16)
[2019-01-27 06:38] LABS: HEMATOCRIT 29.3 % (32.4-45.2); HEMOGLOBIN 9.5 GM/dL (10.7-15.3); MCH 28.3 pg (25.7-33.7); MCHC 32.4 g/dl (32.0-36.0); MEAN CELL VOLUME 87.4 fl (80-96); MEAN PLT VOLUME 8.4 fl (7.5-11.1); PLATELET COUNT 176 K/MM3 (134-434); RBC 3.36 M/mm3 (3.60-5.2); RDW 12.6 % (11.6-15.6); WHITE BLOOD COUNT 12.8 K/mm3 (4.0-10.0)
[2019-01-27 06:52] LABS: CALCIUM 8.7 mg/dL (8.5-10.1); CREATININE 1.4 mg/dL (0.55-1.3); MAGNESIUM 2.2 mg/dL (1.8-2.4); POTASSIUM 5.7 mmol/L (3.5-5.1)
[2019-01-27] MEDS: HEPARIN NA (PORCINE) 5,000 UNITS/ML 1ML VIAL SQ SCH ×3 (06:53→22:09)
[2019-01-27] MEDS ORDERED: oxyCODONE HCL 5 MG TABLET ONE ×2 (07:45→15:44)
[2019-01-27] MEDS: oxyCODONE HCL 5 MG TABLET PO PRN ×3 (07:48→19:59)
[2019-01-27] MEDS: VENLAFAXINE HCL 75 MG E.R. CAPSULES (FP) PO SCH (09:42)
[2019-01-27] MEDS ORDERED: TIOTROPIUM BROMIDE 2.5 MCG (SPIRIVA) RESPIMAT INHALER IH SCH (10:00)
--- NOTE | 2019-01-27 10:20 | EKG ---
Test Reason : Blood Pressure : / mmHG Vent. Rate : 112 BPM Atrial Rate : 112 BPM P-R Int : 146 ms QRS Dur : 076 ms QT Int : 342 ms P-R-T Axes : 077 082 033 degrees QTc Int : 466 ms SINUS TACHYCARDIA POSSIBLE LEFT ATRIAL ENLARGEMENT ANTERIOR INFARCT , AGE UNDETERMINED ABNORMAL ECG WHEN COMPARED WITH ECG OF 15-SEP-2018 15:51, ANTERIOR INFARCT IS NOW PRESENT Confirmed by JERICA CHANDRA, JENNYFER ([id number]) on 01/27/2019 10:19:50 AM Referred By: Confirmed By:JENNYFER PIZANO MD
--- NOTE | 2019-01-27 11:28 | PN ---
Progress Note, Physician - Current Medication List Current Medications: Active Medications Acetaminophen (Tylenol -) 650 mg PO Q6H PRN PRN Reason: PAIN OR FEVER Albuterol Sulfate (Ventolin Hfa Inhaler -) puff IH QID [facility] Budesonide/Formoterol Fumarate (Symbicort 80/4.5mcg -) 1 puff IH BID KACIE Gabapentin (Neurontin -) 300 mg PO Q8H PRN PRN Reason: PAIN Heparin Sodium (Porcine) (Heparin -) 5,000 unit SQ TID [facility] Last Admin: 01/27/19 06:53 Dose: 5,000 unit Dextrose (D5w -) 1,000 mls @ 50 mls/hr IV NOW ONE Stop: 01/27/19 21:59 Last Admin: 01/27/19 02:43 Dose: 50 mls/hr Oxycodone HCl (Roxicodone -) 5 mg PO Q6H PRN PRN Reason: PAIN LEVEL 6-10 Last Admin: 01/27/19 07:48 Dose: 5 mg Quetiapine Fumarate (Seroquel -) 200 mg PO HS [facility] Tiotropium [place] (Spiriva Respimat) puff IH DAILY [facility] Venlafaxine HCl (Effexor Xr -) 150 mg PO DAILY@0800 [facility] Last Admin: 01/27/19 09:42 Dose: 150 mg - Objective Vital Signs: Vital Signs Temperature 98.8 F 01/26/19 18:21 Pulse Rate 112 H 01/27/19 07:10 Respiratory Rate 16 01/27/19 07:10 Blood Pressure 122/89 01/27/19 07:10 O2 Sat by Pulse Oximetry (%) 95 01/27/19 09:00 Labs: CBC, BMP 01/27/19 06:10 01/27/19 06:10 Problem List - Problems (1) DKA, type 2, not at goal Assessment/Plan: glucose: Laboratory Tests 01/26/19 01/26/19 01/26/19 17:11 19:40 23:44 POC Glucometer 541 507 301 01/27/19 01/27/19 01/27/19 01:14 06:46 09:51 POC Glucometer 156 274 279 Ph: 7.2, Beta hydro: 88, Anion gap: 18 UA: + for glucose/ ketones Off Insulin drip Start on sliding scale hold metformin endo A1c Code(s): E11.10 - TYPE 2 DIABETES MELLITUS WITH KETOACIDOSIS WITHOUT COMA (2) Cellulitis Assessment/Plan: - wbc:15.8 - Cultures - follow up ID - IV abx - repeat cbc in AM Code(s): L03.90 - CELLULITIS, UNSPECIFIED (3) ELIZABETH (acute kidney injury) Assessment/Plan: - K dropped to 2.3, left EJ placed in ED run of 10 mEq K+, po 40 mEq K+ -- K : 5.3, Mg+: 2.5 -Repeat now - ca+ supplement x1 - monitor BMP closely, correct lytes - baseline 1.3, given 1 L NS, D5W in ED, cr: 0.8 - trend Cr level, avoid nephro toxin Code(s): N17.9 - ACUTE KIDNEY FAILURE, UNSPECIFIED (4) Electrolyte abnormality Code(s): E87.8 - OTH DISORDERS OF ELECTROLYTE AND FLUID BALANCE, NEC (5) COPD (chronic obstructive pulmonary disease) Assessment/Plan: Nebs Code(s): J44.9 - CHRONIC OBSTRUCTIVE PULMONARY DISEASE, UNSPECIFIED
[2019-01-27] MEDS: ACETAMINOPHEN 325 MG TABLET (FP) PO PRN (11:30)
[2019-01-27] MEDS ORDERED: ACETAMINOPHEN 325 MG TABLET (FP) ONE (11:33)
[2019-01-27] MEDS: INSULIN SLIDING SCALE (NOVOLOG) 1 VIAL SQ SCH ×4 (12:31→23:28)
--- NOTE | 2019-01-27 13:27 | PN ---
Progress Note (short form) - Note Progress Note: ID consult dictated imp/reccd 68 yo female lives alone with her cat history of DM last admitted in the summer discharged 09/28 hasn't seen a doctor since admitted s/p fall found to be hyperglycemic with RLE cellulitis would continue ancef- prior history of MSSA no fever diabetes out of control (noncompliance) ckd f/u cultures
--- NOTE | 2019-01-27 14:15 | CONS ---
INFECTIOUS DISEASE CONSULTATION DATE OF CONSULTATION: DATE OF DICTATION: 01/27/2019 REQUESTING PHYSICIAN: Gamaliel Syed MD HISTORY: Patient was seen in the ER. She is a 68-year-old woman who was last hospitalized in the summer. Discharged on September 28. She is now readmitted status post a fall from home. She has a history of hypertension, diabetes, renal insufficiency, anxiety. Since her discharge in September, she reports that she did not seek any medical care because she was feeling fine. She has not been taking any medicine for her diabetes. She denies any fevers and chills at home. She denies any cough. In the ER, she was noted to be hyperglycemic and to have some erythema of her right lower extremity, and she was given a dose of Ancef and Zithromax. I am asked to see her for further evaluation. ALLERGIES: She has no known drug allergies. MEDICATIONS: She is currently not taking any of her medications as she has not been back to see the doctor. PAST MEDICAL HISTORY: Notable for hypertension, COPD, renal insufficiency, anxiety, chronic low back pain, and diabetes. SURGICAL HISTORY: She has had an appendectomy. SOCIAL HISTORY: She smokes everyday 5 cigarettes. She lives at home alone with her cat. There is no history of any substance use. As stated before, she is not taking any medications. REVIEW OF SYSTEMS: She denies nausea, vomiting, diarrhea, dysuria. She reports that she has a cat, and she has multiple cat scratches from her cat. PHYSICAL EXAMINATION: General: She is awake and alert. She is an older woman in no acute distress. Vital Signs: Temperature is 98.8, pulse is 112, blood pressure is 122/89, respiratory rate is 16. She is saturating 95% on room air. HEENT: She is normocephalic. Her eyes are anicteric. Neck: Supple. Lungs: Clear to auscultation. Heart: Regular rate and rhythm. Abdomen: Soft, nontender. Extremities: She has some erythema and induration of her right lower extremities. Skin: Notable for multiple scratch phillips. She has well-healed scars below her breasts and in her groin area from her prior skin infection over the summer. LABORATORIES: Notable admission white count 15.8, repeat 12.8, hemoglobin 9.5. Her chemistries on admission, her glucose was 548, BUN 37, creatinine 1.8. This morning her sodium is 131 and her BUN 36, creatinine 1.4 with a glucose of 254. Her urinalysis has glucose and ketones. Prior cultures from other admissions reveal MSSA from a skin wound. There is no MRSA. She had a chest x-ray done in the ER that shows no acute chest pathology. In summary, this is a 68-year-old woman admitted with: 1. Hyperglycemia out of control. She is noncompliant completely with treatment. Management per the hospitalist service. 2. Cellulitis, right lower extremity. Would resume Ancef as she has prior history of MSSA. 3. History of renal insufficiency. Further recommendations to follow. ALEJANDRO WHITMORE M.D. [facility]ERO/[id number]
[2019-01-27] MEDS: GABAPENTIN 300 MG CAPSULE (FP) PO SCH ×2 (15:35→22:07)
[2019-01-27] MEDS: CEFAZOLIN 1 GM in DEXTROSE 5%-WATER - 50 ML IVPB SCH ×2 (15:35→17:48)
[2019-01-27] MEDS ORDERED: SODIUM CHLORIDE 1,000 ML IV SCH (16:15)
--- NOTE | 2019-01-27 17:20 | CONSULT ---
Consult Consult Specialty:: Nephrology Reason for Consultation:: ELIZABETH - History of Present Illness Chief Complaint: presented after a fall History of Present Illness: Pt is a 68 year old female with pmhx of htn, dm, anxiety, depression, non compliance and copd who presents after a fall. she was found to be in elizabeth and found to be hyperkalemic. I was called to evaluate her. She denies fevers or chills. She denies chest pain or shortness of breath. her blood sugar has been elevated. he denies loss of consciousness or head trauma. - History Source History Provided By: Patient, Medical Record - Past Medical History Cardio/Vascular: Yes: HTN Pulmonary: Yes: COPD (?) Renal/: Yes: Renal Inusuff Psych: Yes: Anxiety, Depression Musculoskeletal: Yes: Chronic low back pain Endocrine: Yes: Diabetes Mellitus - Past Surgical History Past Surgical History: Yes: Appendectomy - Alcohol/Substance Use Hx Alcohol Use: No History of Substance Use: reports: None - Smoking History Smoking history: Current every day smoker Have you smoked in the past 12 months: Yes Aproximately how many cigarettes per day: 5 If you are a former smoker, when did you quit?: 1 month ago - Social History Usual Living Arrangement: Alone ADL: Independent History of Recent Travel: No Home Medications - Allergies Allergies/Adverse Reactions: Allergies Allergy/AdvReac Type Severity Reaction Status Date / Time No Known Allergies Allergy Verified 01/26/19 17:14 - Home Medications Home Medications: Ambulatory Orders Gabapentin [Neurontin -] 300 mg PO Q8H PRN 03/28/17 Metformin HCl [Glucophage] 1,000 mg PO BID #60 tablet 03/28/17 Venlafaxine HCl ER [Effexor Xr -] 150 mg PO DAILY 03/28/17 Acetaminophen [Tylenol .Regular Strength -] 650 mg PO Q6H PRN tablet 09/06/18 Bacitracin - [Bacitracin Topical Ointment -] 1 applic TP DAILY #90 applic Insulin (Levemir) [Levemir Vial] 30 units SQ AM units 09/06/18 Insulin Sliding Scale [Novolog Vial Sliding Scale -] 1 vial SQ ACHS units 09/06 Nystatin Cream [Mycostatin Cream -] 1 applic TP BID #90 applic 09/06/18 Nystatin Powder [Nystop Powder -] 1 applic TP BID applic 09/06/18 Nystatin/Triamcinolone Top Cr [Mycolog II -] 2 applic TP BID applic 09/06/18 Ondansetron [Zofran *Odt*] 4 mg SL Q6H PRN tab.rapdis 09/06/18 Quetiapine Fumarate [Seroquel -] 200 mg PO HS #30 tab 09/06/18 Sitagliptin Phosphate [Januvia] 50 mg PO BID #60 tablet 09/06/18 metFORMIN HCL [Metformin HCl] 500 mg PO BID #60 tablet 09/06/18 Albuterol Sulfate [Albuterol Sulfate Hfa] 8.5 gm IH QID #3 hfa.aer.ad 09/07/18 Budesonide/Formeterol Fumarate [SYMBICORT 80/4.5mcg -] 1 inh PO BID #1 cannister 09/07/18 Tiotropium Thaxton [Spiriva Respimat] 4 gm IH DAILY #1 mist.inhal 09/07/18 Acetaminophen [Tylenol .Regular Strength -] 650 mg PO Q6H PRN tablet 09/12/18 Glimepiride [Amaryl -] 4 mg PO DAILY@0700 #30 tablet 09/12/18 Clindamycin [Cleocin -] 300 mg PO TID #15 capsule 09/27/18 Fludrocortisone Acetate [Florinef -] 0.1 mg PO BID #60 tablet 09/27/18 Glimepiride [Amaryl -] 4 mg PO BIDAC #60 tablet 09/27/18 Lactobacillus Acidophilus [Acidophilus] 1 each PO DAILY #30 capsule 09/27/18 Mupirocin Cream [Bactroban 2% Cream -] 1 applic TP BID #60 tube 09/27/18 Quetiapine Fumarate [Seroquel -] 200 mg PO TID #90 tablet 09/27/18 Sitagliptin Phosphate [Januvia -] 50 mg PO DAILY@0700 #30 tablet 09/27/18 Family Medical History Family History: Denies Review of Systems - Review of Systems Constitutional: reports: Malaise Eyes: reports: No Symptoms HENT: reports: No Symptoms Neck: reports: No Symptoms Cardiovascular: reports: No Symptoms Respiratory: reports: No Symptoms Gastrointestinal: reports: No Symptoms Genitourinary: reports: No Symptoms Musculoskeletal: reports: No Symptoms Integumentary: reports: No Symptoms Endocrine: reports: No Symptoms Psychiatric: reports: No Symptoms Physical Exam Vital Signs: Vital Signs Temperature 98.6 F 01/27/19 11:34 Pulse Rate 100 H 01/27/19 11:34 Respiratory Rate 16 01/27/19 11:34 Blood Pressure 112/63 01/27/19 11:34 O2 Sat by Pulse Oximetry (%) 95 01/27/19 09:00 Constitutional: Yes: Calm Eyes: Yes: Conjunctiva Clear HENT: Yes: Atraumatic Cardiovascular: Yes: S1, S2 Respiratory: Yes: CTA Bilaterally Gastrointestinal: Yes: Soft Renal/: Yes: WNL Musculoskeletal: Yes: Muscle Weakness Edema: LLE: Trace, RLE: Trace Neurological: Yes: Oriented Labs: CBC, BMP 01/27/19 06:10 01/27/19 06:10 Laboratory Tests 09/25/18 01/26/19 01/27/19 07:40 19:19 01:10 Sodium Potassium Creatinine 1.3 1.8 H 0.8 01/27/19 06:10 Sodium 131 L Potassium 5.7 H Creatinine 1.4 H Imaging - Results Chest X-ray: Report Reviewed Problem List - Problems (1) COPD (chronic obstructive pulmonary disease) Code(s): J44.9 - CHRONIC OBSTRUCTIVE PULMONARY DISEASE, UNSPECIFIED (2) Hyperkalemia Code(s): E87.5 - HYPERKALEMIA (3) ELIZABETH (acute kidney injury) Code(s): N17.9 - ACUTE KIDNEY FAILURE, UNSPECIFIED Assessment/Plan Current Medications Generic Name Dose Route Start Last Admin Trade Name Freq PRN Reason Stop Dose Admin Acetaminophen 650 mg 01/27/19 03:09 01/27/19 11:30 Tylenol - PO 650 mg Q6H PRN Administration PAIN OR FEVER Albuterol Sulfate puff 01/27/19 10:00 Ventolin Hfa Inhaler - IH QID KACIE Budesonide/Formoterol Fumarate 1 puff 01/27/19 10:00 Symbicort 80/4.5mcg - IH BID KACIE Gabapentin 300 mg 01/27/19 14:00 01/27/19 15:35 Neurontin - PO 300 mg TID KACIE Administration Heparin Sodium (Porcine) 5,000 unit 01/27/19 06:00 01/27/19 15:35 Heparin - SQ 5,000 unit TID KACIE Administration Dextrose 1,000 mls @ 50 mls/hr 01/27/19 02:00 01/27/19 02:43 D5w - IV 01/27/19 21:59 50 mls/hr NOW ONE Administration Cefazolin Sodium 1 gm/ 50 mls @ 100 mls/hr 01/27/19 13:45 01/27/19 15:35 Dextrose IVPB 100 mls/hr Q8H-IV KACIE Administration Sodium Chloride 1,000 mls @ 100 mls/hr 01/27/19 16:15 01/27/19 16:12 Normal Saline - IV 100 mls/hr ASDIR KACIE Administration Insulin Aspart 1 vial 01/27/19 11:30 01/27/19 15:06 Novolog Vial Sliding Scale - SQ 10 units Q4H KACIE Administration Protocol Oxycodone HCl 5 mg 01/27/19 03:34 01/27/19 07:48 Roxicodone - PO 5 mg Q6H PRN Administration PAIN LEVEL 6-10 Quetiapine Fumarate 200 mg 01/27/19 22:00 Seroquel - PO HS KACIE Venlafaxine HCl 150 mg 01/27/19 08:00 01/27/19 09:42 Effexor Xr - PO 150 mg DAILY@0800 KACIE Administration Impression 1. CKD 2. HTN 3. s/p fall 4. DM 5. ELIZABETH 6. hyperkalemia Plan - repeat labs - the second blood-draw that showed hypokalemia was likely drawn close to the fluids - give lokelma if repeat potassium elevated, called and spoke to nurse - cont fluids for now - monitor lytes - monitor blood sugar
[2019-01-27 17:35] VITALS: BMI 26.2
[2019-01-27 18:38] LABS: BILIRUBIN,TOTAL 0.3 mg/dL (0.2-1); BLOOD UREA NITROGEN 32.1 mg/dL (7-18); CALCIUM 8.5 mg/dL (8.5-10.1); CREATININE 1.6 mg/dL (0.55-1.3); POTASSIUM 4.9 mmol/L (3.5-5.1)
[2019-01-27] MEDS: BUDESONIDE/FORMETEROL FUMARATE 80/4.5 mcg INHALER IH SCH ×2 (19:04→22:07)
[2019-01-27] MEDS ORDERED: INSULIN (NOVOLOG) ASPART 100 UNITS/ML 10ML VIAL ONE (20:30)
[2019-01-27] MEDS: QUEtiapine FUMARATE 200 MG TABLET PO SCH (22:07)
[2019-01-27] MEDS: ALBUTEROL SO4 8 GM HFA INHALER IH SCH (22:16)
[2019-01-28] MEDS ORDERED: ceFAZolin SODIUM 1 GM VIAL ONE ×3 (00:23→17:14)
[2019-01-28] MEDS ORDERED: DEXTROSE 5%-WATER - 50 ML IVPB ONE ×3 (00:23→17:15)
[2019-01-28] MEDS: ACETAMINOPHEN 325 MG TABLET (FP) PO PRN ×4 (00:41→21:15)
[2019-01-28] MEDS: CEFAZOLIN 1 GM in DEXTROSE 5%-WATER - 50 ML IVPB SCH ×3 (01:19→17:20)
[2019-01-28] MEDS: GABAPENTIN 300 MG CAPSULE (FP) PO SCH ×3 (05:36→21:14)
[2019-01-28] MEDS: oxyCODONE HCL 5 MG TABLET PO PRN ×3 (05:36→21:14)
[2019-01-28] MEDS: HEPARIN NA (PORCINE) 5,000 UNITS/ML 1ML VIAL SQ SCH ×3 (05:39→21:23)
[2019-01-28] MEDS: INSULIN SLIDING SCALE (NOVOLOG) 1 VIAL SQ SCH ×6 (05:40→23:20)
[2019-01-28 07:08] LABS: BLOOD UREA NITROGEN 27.1 mg/dL (7-18); CALCIUM 8.3 mg/dL (8.5-10.1); CREATININE 1.5 mg/dL (0.55-1.3); POTASSIUM 5.2 mmol/L (3.5-5.1)
[2019-01-28] MEDS ORDERED: INSULIN (NOVOLOG) ASPART 100 UNITS/ML 10ML VIAL ONE (08:31)
[2019-01-28] MEDS: VENLAFAXINE HCL 75 MG E.R. CAPSULES (FP) PO SCH (08:38)
[2019-01-28] MEDS: ALBUTEROL SO4 8 GM HFA INHALER IH SCH ×4 (09:58→21:22)
[2019-01-28] MEDS: BUDESONIDE/FORMETEROL FUMARATE 80/4.5 mcg INHALER IH SCH ×2 (09:59→21:21)
--- NOTE | 2019-01-28 10:45 | PN ---
Progress Note, Physician - Current Medication List Current Medications: Active Medications Acetaminophen (Tylenol -) 650 mg PO Q6H PRN PRN Reason: PAIN OR FEVER Last Admin: 01/28/19 08:37 Dose: 650 mg Albuterol Sulfate (Ventolin Hfa Inhaler -) 2 puff IH RQID [facility] Last Admin: 01/28/19 09:58 Dose: 2 puff Budesonide/Formoterol Fumarate (Symbicort 80/4.5mcg -) 1 puff IH BID [facility] Last Admin: 01/28/19 09:59 Dose: 1 puff Gabapentin (Neurontin -) 300 mg PO TID [facility] Last Admin: 01/28/19 05:36 Dose: 300 mg Heparin Sodium (Porcine) (Heparin -) 5,000 unit SQ TID [facility] Last Admin: 01/28/19 05:39 Dose: 5,000 unit Cefazolin Sodium 1 gm/ (Dextrose) 50 mls @ 100 mls/hr IVPB Q8H-IV [facility] Last Admin: 01/28/19 10:00 Dose: 100 mls/hr Insulin Aspart (Novolog Vial Sliding Scale -) 1 vial SQ Q4H [facility]; Protocol Last Admin: 01/28/19 08:38 Dose: 7 units Oxycodone HCl (Roxicodone -) 5 mg PO Q6H PRN PRN Reason: PAIN LEVEL 6-10 Last Admin: 01/28/19 05:36 Dose: 5 mg Quetiapine Fumarate (Seroquel -) 200 mg PO HS [facility] Last Admin: 01/27/19 22:07 Dose: 200 mg Venlafaxine HCl (Effexor Xr -) 150 mg PO DAILY@0800 [facility] Last Admin: 01/28/19 08:38 Dose: 150 mg - Objective Vital Signs: Vital Signs Temperature 100.2 F H 01/28/19 08:27 Pulse Rate 114 H 01/28/19 08:27 Respiratory Rate 18 01/28/19 09:00 Blood Pressure 132/69 01/28/19 08:27 O2 Sat by Pulse Oximetry (%) 96 01/28/19 09:00 Cardiovascular: Yes: S1, S2 Respiratory: Yes: Regular, CTA Bilaterally Gastrointestinal: Yes: Normal Bowel Sounds, Soft Edema: RLE: 2+ Labs: CBC, BMP 01/27/19 06:10 01/28/19 05:55 Problem List - Problems (1) DKA, type 2, not at goal Assessment/Plan: glucose: Laboratory Tests 01/26/19 01/26/19 01/26/19 17:11 19:40 23:44 POC Glucometer 541 507 301 01/27/19 01/27/19 01/27/19 01:14 06:46 09:51 POC Glucometer 156 274 279 Off Insulin drip on sliding scale staqrt levemir hold metformin endo A1c Code(s): E11.10 - TYPE 2 DIABETES MELLITUS WITH KETOACIDOSIS WITHOUT COMA (2) Cellulitis Assessment/Plan: - Cultures - follow up ID - IV abx - repeat cbc Code(s): L03.90 - CELLULITIS, UNSPECIFIED (3) ELIZABETH (acute kidney injury) Assessment/Plan: Laboratory Tests 01/27/19 01/27/19 01/27/19 01:10 06:10 17:29 Potassium 2.3 L* 5.7 H 4.9 BUN 23.2 H Creatinine 0.8 1.4 H 1.6 H 01/28/19 05:55 Potassium 5.2 H BUN 27.1 H Creatinine 1.5 H - - monitor BMP closely, correct lytes - baseline 1.3, given 1 L NS, D5W in ED, cr: 0.8 - trend Cr level, avoid nephro toxin Code(s): N17.9 - ACUTE KIDNEY FAILURE, UNSPECIFIED (4) Electrolyte abnormality Assessment/Plan: as above Code(s): E87.8 - OTH DISORDERS OF ELECTROLYTE AND FLUID BALANCE, NEC (5) COPD (chronic obstructive pulmonary disease) Assessment/Plan: Nebs Code(s): J44.9 - CHRONIC OBSTRUCTIVE PULMONARY DISEASE, UNSPECIFIED (6) Edema Assessment/Plan: stat duplex on heparin sq Code(s): R60.9 - EDEMA, UNSPECIFIED (7) Dermatitis Assessment/Plan: cat scratches local care id Code(s): L30.9 - DERMATITIS, UNSPECIFIED
[2019-01-28 11:25] LABS: BASO % 0.8 % (0-2.0); EOS % 0.9 % (0-4.5); HEMATOCRIT 31.8 % (32.4-45.2); HEMOGLOBIN 10.2 GM/dL (10.7-15.3); LYMPH % 9.8 % (8-40); MCH 28.5 pg (25.7-33.7); MCHC 32.2 g/dl (32.0-36.0); MEAN CELL VOLUME 88.5 fl (80-96); MEAN PLT VOLUME 9.7 fl (7.5-11.1); MONO % 10.8 % (3.8-10.2); NEUT % 77.7 % (42.8-82.8); PLATELET COUNT 183 K/MM3 (134-434); RBC 3.59 M/mm3 (3.60-5.2); RDW 13.3 % (11.6-15.6); WHITE BLOOD COUNT 11.2 K/mm3 (4.0-10.0)
--- NOTE | 2019-01-28 11:48 | PN ---
Progress Note (short form) - Note Progress Note: PULMONARY CONSULTATION DICTATED 01/28/19 IMP DKA POORLY CONTROLLED DM (NON-COMPLIANCE) COPD ELIZABETH ELECTROLYTE IMBALANCE HTN S/P FALL CELLULITIS PLAN GLYCEMIC CONTROL INHALED BRONCHODILATORS PRN F/U ABG IVF MONITOR LYTES,RENAL FUNCTION,K,NA ABX PER ID OUTPATIENT PFTS OUTPATIENT LOW DOSE CHEST CT FOR LUNG CANCER SCREENING DR RUSSELL Problem List - Problems (1) COPD (chronic obstructive pulmonary disease) Code(s): J44.9 - CHRONIC OBSTRUCTIVE PULMONARY DISEASE, UNSPECIFIED (2) DKA, type 2, not at goal Code(s): E11.10 - TYPE 2 DIABETES MELLITUS WITH KETOACIDOSIS WITHOUT COMA (3) Electrolyte abnormality Code(s): E87.8 - OTH DISORDERS OF ELECTROLYTE AND FLUID BALANCE, NEC (4) Hyperkalemia Code(s): E87.5 - HYPERKALEMIA (5) Status post fall Code(s): Z91.81 - HISTORY OF FALLING (6) ELIZABETH (acute kidney injury) Code(s): N17.9 - ACUTE KIDNEY FAILURE, UNSPECIFIED (7) Diabetes Code(s): E11.9 - TYPE 2 DIABETES MELLITUS WITHOUT COMPLICATIONS Qualifiers: Diabetes mellitus type: type 2 (8) Dyspnea on exertion Code(s): R06.09 - OTHER FORMS OF DYSPNEA (9) Noncompliance with diabetes treatment Code(s): Z91.19 - PATIENT'S NONCOMPLIANCE W OTH MEDICAL TREATMENT AND REGIMEN
[2019-01-28] MEDS: INSULIN (LEVEMIR) 100 UNITS/ML UNITS SQ SCH ×2 (12:17→21:12)
[2019-01-28 12:44] LABS: PLATELET ESTIMATE NORMAL
[2019-01-28 13:28] LABS: ARTERIAL BLOOD GAS BASE EXCESS -7.4 meq/l (-2-2); ARTERIAL BLOOD GAS PCO2 33.2 mmHg (35-45); ARTERIAL BLOOD GAS pH 7.33 (7.35-7.45)
[2019-01-28 13:29] LABS: ARTERIAL BLOOD GAS PO2 77.1 mmHg (80-100)
[2019-01-28 13:30] LABS: ALLENS TEST POSITIVE
[2019-01-28] MEDS: AMMONIUM LACTATE 12% LOTION 225 GM BOTTLE TP SCH ×2 (14:02→21:20)
[2019-01-28] MEDS: TRIAMCINOLONE ACET 0.5% CREAM 15 GM TUBE TP SCH ×2 (14:02→21:20)
[2019-01-28] MEDS ORDERED: FUROSEMIDE 40 MG TABLET (FP) PO ONE (18:45)
--- NOTE | 2019-01-28 18:45 | PN ---
Progress Note, Physician History of Present Illness: Pt seen and examined at bedside. She is awake and alert. She complains of lower ext edema. - Current Medication List Current Medications: Active Medications Acetaminophen (Tylenol -) 650 mg PO Q6H PRN PRN Reason: PAIN OR FEVER Last Admin: 01/28/19 14:02 Dose: 650 mg Albuterol Sulfate (Ventolin Hfa Inhaler -) 2 puff IH RQID [facility] Last Admin: 01/28/19 17:23 Dose: 2 puff Budesonide/Formoterol Fumarate (Symbicort 80/4.5mcg -) 1 puff IH BID [facility] Last Admin: 01/28/19 09:59 Dose: 1 puff Gabapentin (Neurontin -) 300 mg PO TID [facility] Last Admin: 01/28/19 14:00 Dose: 300 mg Heparin Sodium (Porcine) (Heparin -) 5,000 unit SQ TID [facility] Last Admin: 01/28/19 14:01 Dose: 5,000 unit Cefazolin Sodium 1 gm/ (Dextrose) 50 mls @ 100 mls/hr IVPB Q8H-IV [facility] Last Admin: 01/28/19 17:20 Dose: 100 mls/hr Insulin Aspart (Novolog Vial Sliding Scale -) 1 vial SQ Q4H [facility]; Protocol Last Admin: 01/28/19 15:07 Dose: 14 units Insulin Detemir (Levemir Vial) 10 units SQ BID@0700,2200 [facility] Last Admin: 01/28/19 12:17 Dose: 10 units Lactic Acid (Lac-Hydrin 12) 1 applic TP BID [facility] Last Admin: 01/28/19 14:02 Dose: 1 applic Oxycodone HCl (Roxicodone -) 5 mg PO Q6H PRN PRN Reason: PAIN LEVEL 6-10 Last Admin: 01/28/19 14:01 Dose: 5 mg Quetiapine Fumarate (Seroquel -) 200 mg PO HS [facility] Last Admin: 01/27/19 22:07 Dose: 200 mg Triamcinolone Acetonide (Aristocort 0.5% Cream -) 1 applic TP BID [facility] Last Admin: 01/28/19 14:02 Dose: 1 applic Venlafaxine HCl (Effexor Xr -) 150 mg PO DAILY@0800 [facility] Last Admin: 01/28/19 08:38 Dose: 150 mg - Objective Vital Signs: Vital Signs Temperature 99.7 F H 01/28/19 14:00 Pulse Rate 113 H 01/28/19 14:00 Respiratory Rate 20 01/28/19 14:00 Blood Pressure 107/56 L 01/28/19 14:00 O2 Sat by Pulse Oximetry (%) 96 01/28/19 09:00 Constitutional: Yes: Calm Eyes: Yes: Conjunctiva Clear HENT: Yes: Atraumatic Neck: Yes: Supple Cardiovascular: Yes: S1, S2 Respiratory: Yes: CTA Bilaterally Gastrointestinal: Yes: Soft Genitourinary: Yes: WNL Edema: Yes Edema: LLE: 1+, RLE: 1+ Neurological: Yes: Oriented Psychiatric: Yes: Oriented Labs: CBC, BMP 01/28/19 05:55 01/28/19 05:55 Problem List - Problems (1) COPD (chronic obstructive pulmonary disease) Code(s): J44.9 - CHRONIC OBSTRUCTIVE PULMONARY DISEASE, UNSPECIFIED (2) Hyperkalemia Code(s): E87.5 - HYPERKALEMIA (3) ELIZABETH (acute kidney injury) Code(s): N17.9 - ACUTE KIDNEY FAILURE, UNSPECIFIED Assessment/Plan Current Medications Generic Name Dose Route Start Last Admin Trade Name Freq PRN Reason Stop Dose Admin Acetaminophen 650 mg 01/27/19 03:09 01/28/19 14:02 Tylenol - PO 650 mg Q6H PRN Administration PAIN OR FEVER Albuterol Sulfate 2 puff 01/27/19 20:00 01/28/19 17:23 Ventolin Hfa Inhaler - IH 2 puff RQID KACIE Administration Budesonide/Formoterol Fumarate 1 puff 01/27/19 10:00 01/28/19 09:59 Symbicort 80/4.5mcg - IH 1 puff BID KACIE Administration Gabapentin 300 mg 01/27/19 14:00 01/28/19 14:00 Neurontin - PO 300 mg TID KACIE Administration Heparin Sodium (Porcine) 5,000 unit 01/27/19 06:00 01/28/19 14:01 Heparin - SQ 5,000 unit TID KACIE Administration Cefazolin Sodium 1 gm/ 50 mls @ 100 mls/hr 01/27/19 13:45 01/28/19 17:20 Dextrose IVPB 100 mls/hr Q8H-IV KACIE Administration Insulin Aspart 1 vial 01/27/19 11:30 01/28/19 15:07 Novolog Vial Sliding Scale - SQ 14 units Q4H KACIE Administration Protocol Insulin Detemir 10 units 01/28/19 11:00 01/28/19 12:17 Levemir Vial SQ 10 units BID@0700,2200 KACIE Administration Lactic Acid 1 applic 01/28/19 11:00 01/28/19 14:02 Lac-Hydrin 12 TP 1 applic BID KACIE Administration Oxycodone HCl 5 mg 01/27/19 03:34 01/28/19 14:01 Roxicodone - PO 5 mg Q6H PRN Administration PAIN LEVEL 6-10 Quetiapine Fumarate 200 mg 01/27/19 22:00 01/27/19 22:07 Seroquel - PO 200 mg HS KACIE Administration Triamcinolone Acetonide 1 applic 01/28/19 11:00 01/28/19 14:02 Aristocort 0.5% Cream - TP 1 applic BID KACIE Administration Venlafaxine HCl 150 mg 01/27/19 08:00 01/28/19 08:38 Effexor Xr - PO 150 mg DAILY@0800 KACIE Administration Impression 1. CKD 2. HTN 3. s/p fall 4. DM 5. ELIZABETH 6. hyperkalemia Plan - monitor renal function - will give a dose of lasix for edema, should help with potassium too - check labs in am - hold fuids - monitor blood sugar
[2019-01-28] MEDS: QUEtiapine FUMARATE 200 MG TABLET PO SCH (21:16)
--- NOTE | 2019-01-28 21:52 | CONS ---
DATE OF CONSULTATION: 01/28/2019 REFERRING PHYSICIAN: Dr. Gaytan The patient is a 68-year-old female, past medical history of type 2 diabetes mellitus, noncompliant with medication, hypertension, depression, anxiety, COPD, admitted to [facility] status post fall at home. Patient states that she fell while getting up from a couch. Denied any loss of consciousness. Denied any chest pains or palpitations prior to this episode. She has been complaining of some dizziness and right lower extremity pain. She presented to the emergency room with the above. In the ER, she was noted to have an elevated sugar of 548 and marked electrolyte imbalance with serum sodium 127, and potassium 5.3. Venous blood gas with a pH of 7.2. She was evaluated, electrolytes, started on IV fluids as well as insulin. Patient has a history of tobacco use, approximately 1 pack a day for 30 years, quit a few months ago. There was no history of occupational exposure to chemicals or fumes. She does complain of dyspnea on exertion chronically. Denies any chronic cough or hemoptysis. Denies any weight loss or night sweats. Of note, she is also complaining of pain in the right lower extremity with erythema. She was hospitalized in September secondary to cellulitis. She was subsequently evaluated on this admission by Infectious Disease and placed on antibiotic therapy. She was also evaluated by Dr. Ruiz for elevated BUN and creatinine. Past medical history, again, includes COPD, although never had PFTs, diabetes mellitus, noncompliant, hypertension, depression, anxiety. REVIEW OF SYSTEMS: No orthopnea, no PND. Positive dyspnea on exertion. No chest pain or palpitations. Positive weakness. Positive right lower extremity discomfort. Current medications include Symbicort, Aristocort cream, Tylenol, cefazolin, heparin subcutaneous, Neurontin, Effexor, Seroquel, Lac-Hydrin, Ventolin inhaler, NovoLog, Levemir, and Roxicodone. PHYSICAL EXAMINATION: General: The patient is a well-developed well-nourished female, awake, alert. Vital Signs: Temperature is 100.2, blood pressure 132/69, respiratory rate is 18, and O2 saturation is 96% on room air. HEENT: Normocephalic, atraumatic. Neck: Supple. Heart: Regular, S1, S2. Chest: Clear. Abdomen: Soft. Bowel sounds positive. Extremities: Erythema of the right lower extremity. LABORATORY DATA: BUN is 27, creatinine 1.5, sodium today is 132. On admission, sodium was 127. BUN on admission was 37.4, currently 27.1. Creatinine on admission was 1.8, currently 1.5. Chest x-ray reveals no infiltrates and no effusions. Venous blood gas: pH of 7.20, pCO2 of 44, O2 of less than 49, bicarbonate of 16. IMPRESSION: 1. DKA 2. Poorly controlled diabetes 3. Chronic obstructive pulmonary disease. 4. Acute kidney injury. 5. Electrolyte imbalance. 6. Hypertension. 7. Status post fall. 8. Cellulitis. PLAN: Glycemic control, monitor electrolytes, IV fluids. Continue antibiotic therapy as per Infectious Disease. Outpatient PFTs. Low-dose chest CT as an outpatient for lung cancer screening. NEHEMIAH RUSSELL M.D. [id number] MTDD
[2019-01-28] MEDS ORDERED: ENOXAPARIN NA (PORCINE) 60 MG/0.6 ML DISP.SYRIN SQ SCH (22:15)
--- NOTE | 2019-01-28 23:25 | CONSULT ---
Consult Consult Specialty:: endocrine Referred by:: nishant ferguson Reason for Consultation:: dmt2 - History of Present Illness Chief Complaint: leg pain History of Present Illness: 68 y/o F hx T2DM, htn,Anxiety,depression,COPD and non-compliance with meds.sp post fall at home. she states she fell on the floor while getting up from the couch. She fell on her back and denies hitting her head. Patient complained of dizziness, headache, nausea and right lower leg pain. she has not been complaint with checking blood sugars or taking medications.she states her pain is 9/10 in scale and sharp intensity . - Past Medical History Cardio/Vascular: Yes: HTN Pulmonary: Yes: COPD (?) Renal/: Yes: Renal Inusuff Psych: Yes: Anxiety, Depression Musculoskeletal: Yes: Chronic low back pain Endocrine: Yes: Diabetes Mellitus - Past Surgical History Past Surgical History: Yes: Appendectomy - Alcohol/Substance Use Hx Alcohol Use: No History of Substance Use: reports: None - Smoking History Smoking history: Current every day smoker Have you smoked in the past 12 months: Yes Aproximately how many cigarettes per day: 5 If you are a former smoker, when did you quit?: 1 month ago - Social History Usual Living Arrangement: Alone ADL: Independent History of Recent Travel: No Home Medications - Allergies Allergies/Adverse Reactions: Allergies Allergy/AdvReac Type Severity Reaction Status Date / Time No Known Allergies Allergy Verified 01/26/19 17:14 - Home Medications Home Medications: Ambulatory Orders Gabapentin [Neurontin -] 300 mg PO Q8H PRN 03/28/17 Metformin HCl [Glucophage] 1,000 mg PO BID #60 tablet 03/28/17 Venlafaxine HCl ER [Effexor Xr -] 150 mg PO DAILY 03/28/17 Acetaminophen [Tylenol .Regular Strength -] 650 mg PO Q6H PRN tablet 09/06/18 Bacitracin - [Bacitracin Topical Ointment -] 1 applic TP DAILY #90 applic Insulin (Levemir) [Levemir Vial] 30 units SQ AM units 09/06/18 Insulin Sliding Scale [Novolog Vial Sliding Scale -] 1 vial SQ ACHS units 09/06 Nystatin Cream [Mycostatin Cream -] 1 applic TP BID #90 applic 09/06/18 Nystatin Powder [Nystop Powder -] 1 applic TP BID applic 09/06/18 Nystatin/Triamcinolone Top Cr [Mycolog II -] 2 applic TP BID applic 09/06/18 Ondansetron [Zofran *Odt*] 4 mg SL Q6H PRN tab.rapdis 09/06/18 Quetiapine Fumarate [Seroquel -] 200 mg PO HS #30 tab 09/06/18 Sitagliptin Phosphate [Januvia] 50 mg PO BID #60 tablet 09/06/18 metFORMIN HCL [Metformin HCl] 500 mg PO BID #60 tablet 09/06/18 Albuterol Sulfate [Albuterol Sulfate Hfa] 8.5 gm IH QID #3 hfa.aer.ad 09/07/18 Budesonide/Formeterol Fumarate [SYMBICORT 80/4.5mcg -] 1 inh PO BID #1 cannister 09/07/18 Tiotropium [place] [Spiriva Respimat] 4 gm IH DAILY #1 mist.inhal 09/07/18 Acetaminophen [Tylenol .Regular Strength -] 650 mg PO Q6H PRN tablet 09/12/18 Glimepiride [Amaryl -] 4 mg PO DAILY@0700 #30 tablet 09/12/18 Clindamycin [Cleocin -] 300 mg PO TID #15 capsule 09/27/18 Fludrocortisone Acetate [Florinef -] 0.1 mg PO BID #60 tablet 09/27/18 Glimepiride [Amaryl -] 4 mg PO BIDAC #60 tablet 09/27/18 Lactobacillus Acidophilus [Acidophilus] 1 each PO DAILY #30 capsule 09/27/18 Mupirocin Cream [Bactroban 2% Cream -] 1 applic TP BID #60 tube 09/27/18 Quetiapine Fumarate [Seroquel -] 200 mg PO TID #90 tablet 09/27/18 Sitagliptin Phosphate [Januvia -] 50 mg PO DAILY@0700 #30 tablet 09/27/18 Review of Systems - Review of Systems Constitutional: reports: Lethargy, Weakness Eyes: reports: No Symptoms HENT: reports: No Symptoms Neck: reports: No Symptoms Cardiovascular: reports: Shortness of Breath Respiratory: reports: Exercise Intolerance, SOB on Exertion Gastrointestinal: reports: Bloating Genitourinary: reports: No Symptoms Breasts: reports: No Symptoms Reported Musculoskeletal: reports: Muscle Weakness Integumentary: reports: Rash Neurological: reports: Numbness, Unsteady Gait, Weakness Endocrine: reports: Unexplained Weight Gain Physical Exam Vital Signs: Vital Signs Temperature 98.6 F 01/28/19 18:00 Pulse Rate 109 H 01/28/19 18:00 Respiratory Rate 20 01/28/19 18:00 Blood Pressure 113/68 01/28/19 18:00 O2 Sat by Pulse Oximetry (%) 96 01/28/19 09:00 Constitutional: Yes: Anxious Eyes: Yes: EOM Intact HENT: Yes: Normocephalic Neck: Yes: Trachea Midline Cardiovascular: Yes: Tachycardia Respiratory: Yes: CTA Bilaterally Gastrointestinal: Yes: Normal Bowel Sounds ...Rectal Exam: Yes: Deferred Renal/: Yes: WNL Musculoskeletal: Yes: Joint Stiffness, Muscle Weakness Extremities: Yes: Delayed Capillary Refill Edema: Yes Edema: LLE: Trace, RLE: Trace Wound/Incision: Yes: Well Approximated, Dressing Dry and Intact, Reddened, Excoriated Neurological: Yes: Alert, Oriented Labs: CBC, BMP 01/28/19 05:55 01/28/19 05:55 Problem List - Problems (1) COPD (chronic obstructive pulmonary disease) Problems reviewed: Yes Code(s): J44.9 - CHRONIC OBSTRUCTIVE PULMONARY DISEASE, UNSPECIFIED (2) DKA, type 2, not at goal Problems reviewed: Yes Code(s): E11.10 - TYPE 2 DIABETES MELLITUS WITH KETOACIDOSIS WITHOUT COMA (3) Dermatitis Problems reviewed: Yes Code(s): L30.9 - DERMATITIS, UNSPECIFIED (4) Edema Problems reviewed: Yes Code(s): R60.9 - EDEMA, UNSPECIFIED (5) Hypermagnesemia Problems reviewed: Yes Code(s): E83.41 - HYPERMAGNESEMIA (6) Status post fall Problems reviewed: Yes Code(s): Z91.81 - HISTORY OF FALLING Assessment/Plan Current Active Problems COPD (chronic obstructive pulmonary disease) (Acute) DKA, type 2, not at goal (Acute) Dermatitis (Acute) Edema (Acute) Electrolyte abnormality (Acute) Hyperkalemia (Acute) Hypermagnesemia (Acute) Status post fall (Acute) Weakness (Acute) Abnormal Lab Results 01/28/19 01/28/19 01/28/19 05:55 05:55 13:10 WBC 11.2 H RBC 3.59 L Hgb 10.2 L Hct 31.8 L Absolute Neuts (auto) 8.7 H Lymphocytes % (Manual) 6.9 L Monocytes % 10.8 H Eosinophils % (Manual) 9.8 H ABG pH 7.33 L ABG pCO2 at Pt Temp 33.2 L ABG pO2 at Pt Temp 77.1 L ABG HCO3 17.2 L ABG O2 Sat (Measured) 93.0 L ABG Base Excess -7.4 L Sodium 132 L Potassium 5.2 H Carbon Dioxide 15 L BUN 27.1 H Creatinine 1.5 H Random Glucose 339 H Calcium 8.3 L Laboratory Results - last 24 hr 01/27/19 01/28/19 01/28/19 23:23 05:30 05:55 WBC RBC Hgb Hct MCV MCH MCHC RDW Plt Count MPV Absolute Neuts (auto) Neutrophils % Neutrophils % (Manual) Band Neutrophils % Lymphocytes % Lymphocytes % (Manual) Monocytes % Monocytes % (Manual) Eosinophils % Eosinophils % (Manual) Basophils % Basophils % (Manual) Myelocytes % (Man) Promyelocytes % (Man) Blast Cells % (Manual) Nucleated RBC % Metamyelocytes Platelet Estimate Anticoagulation Therapy Puncture Site ABG pH ABG pCO2 at Pt Temp ABG pO2 at Pt Temp ABG HCO3 ABG O2 Sat (Measured) ABG O2 Content ABG Base Excess David Test O2 Delivery Device Oxygen Flow Rate Vent Mode Vent Rate Mechanical Rate Pressure Support Vent Sodium 132 L Potassium 5.2 H Chloride 102 Carbon Dioxide 15 L Anion Gap 15 BUN 27.1 H Creatinine 1.5 H Est GFR (CKD-EPI)AfAm 40.77 Est GFR (CKD-EPI)NonAf 35.18 POC Glucometer 266 316 Random Glucose 339 H Calcium 8.3 L 01/28/19 01/28/19 01/28/19 05:55 08:29 11:12 WBC 11.2 H RBC 3.59 L Hgb 10.2 L Hct 31.8 L MCV 88.5 MCH 28.5 MCHC 32.2 RDW 13.3 Plt Count 183 MPV 9.7 D Absolute Neuts (auto) 8.7 H Neutrophils % 77.7 Neutrophils % (Manual) 67.6 Band Neutrophils % 0.0 Lymphocytes % 9.8 D Lymphocytes % (Manual) 6.9 L Monocytes % 10.8 H Monocytes % (Manual) 9 Eosinophils % 0.9 D Eosinophils % (Manual) 9.8 H Basophils % 0.8 Basophils % (Manual) 0.0 Myelocytes % (Man) 0 Promyelocytes % (Man) 0 Blast Cells % (Manual) 0 Nucleated RBC % 0 Metamyelocytes 0 Platelet Estimate Normal Anticoagulation Therapy Puncture Site ABG pH ABG pCO2 at Pt Temp ABG pO2 at Pt Temp ABG HCO3 ABG O2 Sat (Measured) ABG O2 Content ABG Base Excess David Test O2 Delivery Device Oxygen Flow Rate Vent Mode Vent Rate Mechanical Rate Pressure Support Vent Sodium Potassium Chloride Carbon Dioxide Anion Gap BUN Creatinine Est GFR (CKD-EPI)AfAm Est GFR (CKD-EPI)NonAf POC Glucometer 338 340 Random Glucose Calcium 01/28/19 01/28/19 01/28/19 13:10 15:06 21:10 WBC RBC Hgb Hct MCV MCH MCHC RDW Plt Count MPV Absolute Neuts (auto) Neutrophils % Neutrophils % (Manual) Band Neutrophils % Lymphocytes % Lymphocytes % (Manual) Monocytes % Monocytes % (Manual) Eosinophils % Eosinophils % (Manual) Basophils % Basophils % (Manual) Myelocytes % (Man) Promyelocytes % (Man) Blast Cells % (Manual) Nucleated RBC % Metamyelocytes Platelet Estimate Anticoagulation Therapy No Result Required. Puncture Site Left radial ABG pH 7.33 L ABG pCO2 at Pt Temp 33.2 L ABG pO2 at Pt Temp 77.1 L ABG HCO3 17.2 L ABG O2 Sat (Measured) 93.0 L ABG O2 Content No Result Required. ABG Base Excess -7.4 L David Test Positive O2 Delivery Device No Result Required. Oxygen Flow Rate Yes Vent Mode No Result Required. Vent Rate No Result Required. Mechanical Rate No Result Required. Pressure Support Vent No Result Required. Sodium Potassium Chloride Carbon Dioxide Anion Gap BUN Creatinine Est GFR (CKD-EPI)AfAm Est GFR (CKD-EPI)NonAf POC Glucometer 404 419 Random Glucose Calcium sepulveda: bgm q4hrs novolog scale levemir 25units bid once sugars stable will titrate dose levemir ck hba1c pain management neurology neuropathy
[2019-01-29] MEDS ORDERED: ceFAZolin SODIUM 1 GM VIAL ONE ×2 (00:49→09:53)
[2019-01-29] MEDS ORDERED: DEXTROSE 5%-WATER - 50 ML IVPB ONE ×2 (00:50→09:54)
[2019-01-29] MEDS: CEFAZOLIN 1 GM in DEXTROSE 5%-WATER - 50 ML IVPB SCH ×2 (01:29→10:29)
[2019-01-29] MEDS: INSULIN SLIDING SCALE (NOVOLOG) 1 VIAL SQ SCH ×5 (04:00→22:19)
[2019-01-29] MEDS ORDERED: INSULIN (NOVOLOG) ASPART 100 UNITS/ML 10ML VIAL SQ ONE (05:29)
[2019-01-29] MEDS: oxyCODONE HCL 5 MG TABLET PO PRN ×2 (05:55→14:29)
[2019-01-29] MEDS: HEPARIN NA (PORCINE) 5,000 UNITS/ML 1ML VIAL SQ SCH ×3 (05:58→22:21)
[2019-01-29] MEDS: GABAPENTIN 300 MG CAPSULE (FP) PO SCH ×3 (06:00→22:23)
[2019-01-29] MEDS: INSULIN (LEVEMIR) 100 UNITS/ML UNITS SQ SCH ×2 (06:40→22:21)
[2019-01-29] MEDS ORDERED: PT OWN MED DRAWER 7, Y5N ONE ×3 (09:53→21:38)
[2019-01-29] MEDS: VENLAFAXINE HCL 75 MG E.R. CAPSULES (FP) PO SCH (10:31)
[2019-01-29] MEDS: TRIAMCINOLONE ACET 0.5% CREAM 15 GM TUBE TP SCH ×2 (10:32→22:19)
[2019-01-29] MEDS: AMMONIUM LACTATE 12% LOTION 225 GM BOTTLE TP SCH ×2 (10:32→22:20)
[2019-01-29] MEDS: ALBUTEROL SO4 8 GM HFA INHALER IH SCH ×5 (10:35→22:19)
[2019-01-29] MEDS: BUDESONIDE/FORMETEROL FUMARATE 80/4.5 mcg INHALER IH SCH ×2 (10:36→22:18)
--- NOTE | 2019-01-29 11:05 | PN ---
Progress Note (short form) - Note Progress Note: alert continued RLE pain duplex with no dvt prominant right inguinal node Vital Signs Period Temp Pulse Resp BP Sys/Boothe Pulse Ox Last 24 Hr 98.6 F-99.8 F 109-116 20-20 107-139/56-68 96 cor-rrr lungs clear abd soft,nt ext pain, less erythema of the RLE small mobile nontender right inguinal node no hip pain able to palpate right knee, lower leg less red but granulator tender to palpation CBC, BMP 01/28/19 05:55 Microbiology 01/26/19 18:50 Blood - Peripheral Venous Blood Culture - Preliminary NO GROWTH OBTAINED AFTER 48 HOURS, INCUBATION TO CONTINUE FOR 3 DAYS. 01/26/19 18:50 Blood - Peripheral Venous Blood Culture - Preliminary NO GROWTH OBTAINED AFTER 48 HOURS, INCUBATION TO CONTINUE FOR 3 DAYS. hgbA1c 13 imp/reccd RLE cellulitis still painful- less erythema, will switch to unasyn blood cultures negative but has exposure to cats diabetes out of control (noncompliance) ckd f/u cultures
[2019-01-29 11:20] LABS: ALBUMIN 2.5 g/dl (3.4-5.0); BILIRUBIN,TOTAL 0.3 mg/dL (0.2-1); BLOOD UREA NITROGEN 25.8 mg/dL (7-18); CALCIUM 8.5 mg/dL (8.5-10.1); CREATININE 1.3 mg/dL (0.55-1.3); MAGNESIUM 1.9 mg/dL (1.8-2.4); POTASSIUM 3.8 mmol/L (3.5-5.1); TOT PROT 6.9 g/dl (6.4-8.2)
[2019-01-29] MEDS ORDERED: INSULIN (NOVOLOG) ASPART 100 UNITS/ML 10ML VIAL ONE (11:55)
--- NOTE | 2019-01-29 12:05 | PN ---
Progress Note, Physician History of Present Illness: Pt seen and examined at bedside. She is awake and alert. She denies shortness of breath. - Current Medication List Current Medications: Active Medications Acetaminophen (Tylenol -) 650 mg PO Q6H PRN PRN Reason: PAIN OR FEVER Last Admin: 01/28/19 21:15 Dose: 650 mg Albuterol Sulfate (Ventolin Hfa Inhaler -) 2 puff IH RQID [facility] Last Admin: 01/29/19 10:35 Dose: 2 puff Budesonide/Formoterol Fumarate (Symbicort 80/4.5mcg -) 1 puff IH BID [facility] Last Admin: 01/29/19 10:36 Dose: 1 puff Enoxaparin Sodium (Lovenox -) 70 mg SQ ONCE KACIE Gabapentin (Neurontin -) 300 mg PO TID [facility] Last Admin: 01/29/19 06:00 Dose: 300 mg Heparin Sodium (Porcine) (Heparin -) 5,000 unit SQ TID [facility] Last Admin: 01/29/19 05:58 Dose: 5,000 unit Ampicillin Sodium/Sulbactam (Sodium 3 gm/ Sodium Chloride) 100 mls @ 200 mls/ hr IVPB Q8H-IV KACIE Insulin Aspart (Novolog Vial Sliding Scale -) 1 vial SQ Q4H [facility]; Protocol Last Admin: 01/29/19 11:58 Dose: 7 units Insulin Detemir (Levemir Vial) 25 units SQ BID@0700,2200 [facility] Last Admin: 01/29/19 06:40 Dose: 25 units Lactic Acid (Lac-Hydrin 12) 1 applic TP BID [facility] Last Admin: 01/29/19 10:32 Dose: 1 applic Oxycodone HCl (Roxicodone -) 10 mg PO Q6H PRN PRN Reason: PAIN LEVEL 6-10 Last Admin: 01/29/19 05:55 Dose: 10 mg Quetiapine Fumarate (Seroquel -) 200 mg PO HS [facility] Last Admin: 01/28/19 21:16 Dose: 200 mg Triamcinolone Acetonide (Aristocort 0.5% Cream -) 1 applic TP BID [facility] Last Admin: 01/29/19 10:32 Dose: 1 applic Venlafaxine HCl (Effexor Xr -) 150 mg PO DAILY@0800 [facility] Last Admin: 01/29/19 10:31 Dose: 150 mg - Objective Vital Signs: Vital Signs Temperature 99.6 F 01/29/19 10:00 Pulse Rate 116 H 01/29/19 10:00 Respiratory Rate 20 01/29/19 10:00 Blood Pressure 122/66 01/29/19 10:00 O2 Sat by Pulse Oximetry (%) 96 01/28/19 21:00 Constitutional: Yes: Calm Eyes: Yes: Conjunctiva Clear HENT: Yes: Atraumatic Cardiovascular: Yes: S1, S2 Respiratory: Yes: CTA Bilaterally Gastrointestinal: Yes: Soft Genitourinary: Yes: WNL Musculoskeletal: Yes: WNL Edema: Yes Edema: LLE: 1+, RLE: 1+ Integumentary: Yes: Erythema Neurological: Yes: Oriented Psychiatric: Yes: Oriented Labs: CBC, BMP 01/28/19 05:55 01/29/19 10:20 Problem List - Problems (1) COPD (chronic obstructive pulmonary disease) Code(s): J44.9 - CHRONIC OBSTRUCTIVE PULMONARY DISEASE, UNSPECIFIED (2) Hyperkalemia Code(s): E87.5 - HYPERKALEMIA (3) ELIZABETH (acute kidney injury) Code(s): N17.9 - ACUTE KIDNEY FAILURE, UNSPECIFIED Assessment/Plan Current Medications Generic Name Dose Route Start Last Admin Trade Name Freq PRN Reason Stop Dose Admin Acetaminophen 650 mg 01/27/19 03:09 01/28/19 21:15 Tylenol - PO 650 mg Q6H PRN Administration PAIN OR FEVER Albuterol Sulfate 2 puff 01/27/19 20:00 01/29/19 10:35 Ventolin Hfa Inhaler - IH 2 puff RQID KACIE Administration Budesonide/Formoterol Fumarate 1 puff 01/27/19 10:00 01/29/19 10:36 Symbicort 80/4.5mcg - IH 1 puff BID KACIE Administration Enoxaparin Sodium 70 mg 01/28/19 22:15 Lovenox - SQ ONCE KACIE Gabapentin 300 mg 01/27/19 14:00 01/29/19 06:00 Neurontin - PO 300 mg TID KACIE Administration Heparin Sodium (Porcine) 5,000 unit 01/27/19 06:00 01/29/19 05:58 Heparin - SQ 5,000 unit TID KACIE Administration Ampicillin Sodium/Sulbactam 100 mls @ 200 mls/hr 01/29/19 11:15 Sodium 3 gm/ Sodium Chloride IVPB Q8H-IV KACIE Insulin Aspart 1 vial 01/28/19 23:09 01/29/19 11:58 Novolog Vial Sliding Scale - SQ 7 units Q4H KACIE Administration Protocol Insulin Detemir 25 units 01/28/19 23:08 01/29/19 06:40 Levemir Vial SQ 25 units BID@0700,2200 KACIE Administration Lactic Acid 1 applic 01/28/19 11:00 01/29/19 10:32 Lac-Hydrin 12 TP 1 applic BID KACIE Administration Oxycodone HCl 10 mg 01/28/19 22:53 01/29/19 05:55 Roxicodone - PO 10 mg Q6H PRN Administration PAIN LEVEL 6-10 Quetiapine Fumarate 200 mg 01/27/19 22:00 01/28/19 21:16 Seroquel - PO 200 mg HS KACIE Administration Triamcinolone Acetonide 1 applic 01/28/19 11:00 01/29/19 10:32 Aristocort 0.5% Cream - TP 1 applic BID KACIE Administration Venlafaxine HCl 150 mg 01/27/19 08:00 01/29/19 10:31 Effexor Xr - PO 150 mg DAILY@0800 KACIE Administration Impression 1. CKD 2. HTN 3. s/p fall 4. DM 5. ELIZABETH 6. hyperkalemia Plan - renal function stabilizing - potassium is stable - edema improved today compared to yesterday - rehab eval - check labs in am - hold fuids - monitor blood sugar
[2019-01-29] MEDS: AMPICILLIN NA/SULBACTAM NA 3 GM in SODIUM CHLORIDE 100 ML IVPB SCH ×2 (13:04→17:23)
--- NOTE | 2019-01-29 13:26 | PN ---
Progress Note (short form) - Note Progress Note: PULMONARY Denies shortness of breath, cough or wheezing. c/o left leg pain. Vital Signs Period Temp Pulse Resp BP Sys/Boothe Pulse Ox Last 24 Hr 98.6 F-99.8 F 109-116 20-20 107-139/56-68 96 Gen: NAD at rest Heart: RRR Lung: decreased breath sounds at the bases Abd: soft, nontender Ext: LLE edema CBC, BMP 01/28/19 05:55 01/29/19 10:20 Active Medications Acetaminophen (Tylenol -) 650 mg PO Q6H PRN PRN Reason: PAIN OR FEVER Last Admin: 01/28/19 21:15 Dose: 650 mg Albuterol Sulfate (Ventolin Hfa Inhaler -) 2 puff IH RQID [facility] Last Admin: 01/29/19 13:07 Dose: 2 puff Budesonide/Formoterol Fumarate (Symbicort 80/4.5mcg -) 1 puff IH BID [facility] Last Admin: 01/29/19 10:36 Dose: 1 puff Enoxaparin Sodium (Lovenox -) 70 mg SQ ONCE KACIE Gabapentin (Neurontin -) 300 mg PO TID [facility] Last Admin: 01/29/19 06:00 Dose: 300 mg Heparin Sodium (Porcine) (Heparin -) 5,000 unit SQ TID [facility] Last Admin: 01/29/19 05:58 Dose: 5,000 unit Ampicillin Sodium/Sulbactam (Sodium 3 gm/ Sodium Chloride) 100 mls @ 200 mls/ hr IVPB Q8H-IV [facility] Last Admin: 01/29/19 13:04 Dose: 200 mls/hr Insulin Aspart (Novolog Vial Sliding Scale -) 1 vial SQ Q4H [facility]; Protocol Last Admin: 01/29/19 11:58 Dose: 7 units Insulin Detemir (Levemir Vial) 25 units SQ BID@0700,2200 [facility] Last Admin: 01/29/19 06:40 Dose: 25 units Lactic Acid (Lac-Hydrin 12) 1 applic TP BID [facility] Last Admin: 01/29/19 10:32 Dose: 1 applic Oxycodone HCl (Roxicodone -) 10 mg PO Q6H PRN PRN Reason: PAIN LEVEL 6-10 Last Admin: 01/29/19 05:55 Dose: 10 mg Quetiapine Fumarate (Seroquel -) 200 mg PO HS [facility] Last Admin: 01/28/19 21:16 Dose: 200 mg Triamcinolone Acetonide (Aristocort 0.5% Cream -) 1 applic TP BID [facility] Last Admin: 01/29/19 10:32 Dose: 1 applic Venlafaxine HCl (Effexor Xr -) 150 mg PO DAILY@0800 [facility] Last Admin: 01/29/19 10:31 Dose: 150 mg A/P Diabetic Ketoacidosis resolved COPD Acute Kidney Injury improving Cellulitis HTN - continue antibiotics - inhaled bronchodilators - O2 as needed - rehab/PT - outpt PFTs, CT chest - DVT prophylaxis
--- NOTE | 2019-01-29 15:07 | PN ---
Progress Note, Physician Chief Complaint: patient seen and examined - Current Medication List Current Medications: Active Medications Acetaminophen (Tylenol -) 650 mg PO Q6H PRN PRN Reason: PAIN OR FEVER Last Admin: 01/28/19 21:15 Dose: 650 mg Albuterol Sulfate (Ventolin Hfa Inhaler -) 2 puff IH RQID [facility] Last Admin: 01/29/19 14:21 Dose: Not Given Budesonide/Formoterol Fumarate (Symbicort 80/4.5mcg -) 1 puff IH BID [facility] Last Admin: 01/29/19 10:36 Dose: 1 puff Enoxaparin Sodium (Lovenox -) 70 mg SQ ONCE KACIE Gabapentin (Neurontin -) 300 mg PO TID [facility] Last Admin: 01/29/19 14:21 Dose: 300 mg Heparin Sodium (Porcine) (Heparin -) 5,000 unit SQ TID [facility] Last Admin: 01/29/19 14:21 Dose: 5,000 unit Ampicillin Sodium/Sulbactam (Sodium 3 gm/ Sodium Chloride) 100 mls @ 200 mls/ hr IVPB Q8H-IV [facility] Last Admin: 01/29/19 13:04 Dose: 200 mls/hr Insulin Aspart (Novolog Vial Sliding Scale -) 1 vial SQ Q4H [facility]; Protocol Last Admin: 01/29/19 11:58 Dose: 7 units Insulin Detemir (Levemir Vial) 25 units SQ BID@0700,2200 [facility] Last Admin: 01/29/19 06:40 Dose: 25 units Lactic Acid (Lac-Hydrin 12) 1 applic TP BID [facility] Last Admin: 01/29/19 10:32 Dose: 1 applic Oxycodone HCl (Roxicodone -) 10 mg PO Q6H PRN PRN Reason: PAIN LEVEL 6-10 Last Admin: 01/29/19 14:29 Dose: 10 mg Quetiapine Fumarate (Seroquel -) 200 mg PO HS [facility] Last Admin: 01/28/19 21:16 Dose: 200 mg Triamcinolone Acetonide (Aristocort 0.5% Cream -) 1 applic TP BID [facility] Last Admin: 01/29/19 10:32 Dose: 1 applic Venlafaxine HCl (Effexor Xr -) 150 mg PO DAILY@0800 [facility] Last Admin: 12/16/19 10:31 Dose: 150 mg - Objective Vital Signs: Vital Signs Temperature 99.6 F 01/29/19 10:00 Pulse Rate 116 H 01/29/19 10:00 Respiratory Rate 20 01/29/19 10:00 Blood Pressure 122/66 01/29/19 10:00 O2 Sat by Pulse Oximetry (%) 96 01/28/19 21:00 Constitutional: Yes: Calm Cardiovascular: Yes: Regular Rate and Rhythm, S1, S2 Respiratory: Yes: CTA Bilaterally Gastrointestinal: Yes: Normal Bowel Sounds, Soft Extremities: Yes: Erythema Edema: Yes Edema: RLE: 1+ Labs: CBC, BMP 01/28/19 05:55 01/29/19 10:20 Problem List - Problems (1) Cellulitis Assessment/Plan: iv unasyn no dvt on RLE dvt ppx Code(s): L03.90 - CELLULITIS, UNSPECIFIED (2) ELIZABETH (acute kidney injury) Assessment/Plan: renal fucntion much improved Code(s): N17.9 - ACUTE KIDNEY FAILURE, UNSPECIFIED (3) Type 2 diabetes mellitus with hyperosmolarity without nonketotic hyperglycemic-hyperosmolar coma ([facility]) Assessment/Plan: seen by endocrine on levemir bid Code(s): E11.00 - TYPE 2 DIAB W HYPROSM W/O NONKET HYPRGLY-HYPROS COMA ([facility]) (4) COPD (chronic obstructive pulmonary disease) Assessment/Plan: bronchodilators Code(s): J44.9 - CHRONIC OBSTRUCTIVE PULMONARY DISEASE, UNSPECIFIED (5) Anxiety Assessment/Plan: effexor Code(s): F41.9 - ANXIETY DISORDER, UNSPECIFIED
[2019-01-29] MEDS: ACETAMINOPHEN 325 MG TABLET (FP) PO PRN (17:22)
--- NOTE | 2019-01-29 22:05 | CONSULT ---
Consult - text type - Consultation Consultation Note: NEUROLOGY CONSULTATION is greatly appreciated: Events reviewed, Patient examined. This 68 yo RH woman lives alone with her cats. PMH sig for DM, depression, COPD is maintained On: Gabapentin 300 Q8H; Metformin ; Venlafaxine ER 150; Insulin; Zofran; Quetiapine 200 BID; Januvia; Albuterol; SYMBICORT; Spiriva; Glimepiride; Florinef -.1 mg PO BID. Now admitted after "2 falls" at home with cellulitis right calf and BBllod glucose > 500 mg%. Admission WBC= 15.8K. Urinary WBC= 22. CTof head (09/09/18) is reviewed: Moderate, diffuse atrophy and diffuse microvascular changes. BECKY: No evidence of external head trauma. No bruits. Cor reg. Cellulitis with blistering right calf. Multiple (cat?) scratches, TNTC. Neuro: MS/ speech: Normal CN II-XII: normal Motor: Min right drift. Right sided tremor. ++Cogwheeling R>>L. Normal strength. Brisk reflexes except L AJ. (R is present). Plantars silent. Coord: No FTN dystaxia Sensory: Reduced vibration feet. Romberg + Gaidt: Unsteady, shufling. Right leg freezes. IMP: Mild B/L cerebral dysfunction. Right hemiParkinson's Diabetic peripheral neuropathy All will worsen with Toxic-metabolic encephalopathy (infection, diabetic ketoacidosis) SUGGEST: MRI of brain (C-) Check B12, TSH, RPR Continue antibiotics PT for gait with walker manager creative services for home safety check Neuro f/u when metabolically improved to assess for possible treatment for extrapyramidal features. Thank you very much, Alton Agee MD
[2019-01-29] MEDS: QUEtiapine FUMARATE 200 MG TABLET PO SCH (22:22)
[2019-01-30] MEDS: INSULIN SLIDING SCALE (NOVOLOG) 1 VIAL SQ SCH ×7 (00:09→22:21)
[2019-01-30] MEDS: AMPICILLIN NA/SULBACTAM NA 3 GM in SODIUM CHLORIDE 100 ML IVPB SCH ×3 (02:58→09:42)
[2019-01-30] MEDS: GABAPENTIN 300 MG CAPSULE (FP) PO SCH ×3 (06:13→22:11)
[2019-01-30] MEDS: INSULIN (LEVEMIR) 100 UNITS/ML UNITS SQ SCH ×2 (06:21→22:11)
[2019-01-30] MEDS: HEPARIN NA (PORCINE) 5,000 UNITS/ML 1ML VIAL SQ SCH ×3 (06:21→22:11)
[2019-01-30] MEDS: oxyCODONE HCL 5 MG TABLET PO PRN ×3 (08:01→23:01)
[2019-01-30] MEDS: ALBUTEROL SO4 8 GM HFA INHALER IH SCH ×4 (08:04→19:20)
--- NOTE | 2019-01-30 08:17 | PN ---
Progress Note, Physician Chief Complaint: AWAKE ALERT EVENTS AND NOTES REVIEWED SPOKE TO DR KAM AND LEGS HAVE WORSENING ULCERS/BLISTERS CT SCAN LEGS ORDERED - Current Medication List Current Medications: Active Medications Acetaminophen (Tylenol -) 650 mg PO Q6H PRN PRN Reason: PAIN OR FEVER Last Admin: 01/29/19 17:22 Dose: 650 mg Albuterol Sulfate (Ventolin Hfa Inhaler -) 2 puff IH RQID [facility] Last Admin: 01/30/19 08:04 Dose: 2 puff Budesonide/Formoterol Fumarate (Symbicort 80/4.5mcg -) 1 puff IH BID [facility] Last Admin: 01/29/19 22:18 Dose: 1 puff Gabapentin (Neurontin -) 300 mg PO TID [facility] Last Admin: 01/30/19 06:13 Dose: Not Given Heparin Sodium (Porcine) (Heparin -) 5,000 unit SQ TID [facility] Last Admin: 01/30/19 06:21 Dose: 5,000 unit Ampicillin Sodium/Sulbactam (Sodium 3 gm/ Sodium Chloride) 100 mls @ 200 mls/ hr IVPB Q8H-IV [facility] Last Admin: 01/30/19 03:15 Dose: Not Given Insulin Aspart (Novolog Vial Sliding Scale -) 1 vial SQ Q4H [facility]; Protocol Last Admin: 01/30/19 06:22 Dose: 14 units Insulin Detemir (Levemir Vial) 25 units SQ BID@0700,2200 [facility] Last Admin: 01/30/19 06:21 Dose: 25 units Lactic Acid (Lac-Hydrin 12) 1 applic TP BID [facility] Last Admin: 01/29/19 22:20 Dose: 1 applic Oxycodone HCl (Roxicodone -) 10 mg PO Q6H PRN PRN Reason: PAIN LEVEL 6-10 Last Admin: 01/30/19 08:01 Dose: 10 mg Quetiapine Fumarate (Seroquel -) 200 mg PO HS [facility] Last Admin: 01/29/19 22:22 Dose: 200 mg Triamcinolone Acetonide (Aristocort 0.5% Cream -) 1 applic TP BID [facility] Last Admin: 01/29/19 22:19 Dose: 1 applic Venlafaxine HCl (Effexor Xr -) 150 mg PO DAILY@0800 [facility] Last Admin: 01/29/19 10:31 Dose: 150 mg - Objective Vital Signs: Vital Signs Temperature 99.8 F H 01/30/19 06:00 Pulse Rate 134 H 01/30/19 06:00 Respiratory Rate 20 01/30/19 06:00 Blood Pressure 103/39 L 01/30/19 06:00 O2 Sat by Pulse Oximetry (%) 96 01/29/19 21:00 Constitutional: Yes: Mild Distress Cardiovascular: Yes: Pulse Irregular Respiratory: Yes: On Nasal O2, Other Gastrointestinal: Yes: Soft Genitourinary: Yes: Other Integumentary: Yes: Pressure Ulcer, Rash, Venous Stasis Changes Wound/Incision: Yes: Open to air, Excoriated Neurological: Yes: Pre-Existing Deficit, Other ...Motor Strength: LLE, RLE (B/L LEG ULCERS WITH BLISTERS) Psychiatric: Yes: Other Labs: CBC, BMP 01/28/19 05:55 01/29/19 10:20 Problem List - Problems (1) COPD (chronic obstructive pulmonary disease) Code(s): J44.9 - CHRONIC OBSTRUCTIVE PULMONARY DISEASE, UNSPECIFIED (2) Cellulitis Code(s): L03.90 - CELLULITIS, UNSPECIFIED (3) DKA, type 2, not at goal Code(s): E11.10 - TYPE 2 DIABETES MELLITUS WITH KETOACIDOSIS WITHOUT COMA (4) Dermatitis Code(s): L30.9 - DERMATITIS, UNSPECIFIED (5) Edema Code(s): R60.9 - EDEMA, UNSPECIFIED (6) Weakness Code(s): R53.1 - WEAKNESS (7) Anxiety Code(s): F41.9 - ANXIETY DISORDER, UNSPECIFIED (8) CKD (chronic kidney disease) Code(s): N18.9 - CHRONIC KIDNEY DISEASE, UNSPECIFIED (9) Depression Code(s): F32.9 - MAJOR DEPRESSIVE DISORDER, SINGLE EPISODE, UNSPECIFIED (10) Noncompliance with diabetes treatment Code(s): Z91.19 - PATIENT'S NONCOMPLIANCE W OTH MEDICAL TREATMENT AND REGIMEN Assessment/Plan CT SCAN TO R/O LEG ABSCESS ID CONSULT DEBRIDE LOWER EXTREMITY IV ABX WOUND CARE TELE MONITORING
[2019-01-30] MEDS: VENLAFAXINE HCL 75 MG E.R. CAPSULES (FP) PO SCH (09:32)
[2019-01-30] MEDS: AMMONIUM LACTATE 12% LOTION 225 GM BOTTLE TP SCH ×2 (09:33→22:23)
[2019-01-30] MEDS: TRIAMCINOLONE ACET 0.5% CREAM 15 GM TUBE TP SCH ×2 (09:33→22:23)
[2019-01-30] MEDS: BUDESONIDE/FORMETEROL FUMARATE 80/4.5 mcg INHALER IH SCH ×2 (09:33→22:23)
[2019-01-30] MEDS: ACETAMINOPHEN 325 MG TABLET (FP) PO PRN (09:41)
--- NOTE | 2019-01-30 12:37 | PN ---
Progress Note (short form) - Note Progress Note: PULMONARY Denies shortness of breath, cough or wheezing. Vital Signs Period Temp Pulse Resp BP Sys/Boothe Pulse Ox Last 24 Hr 99.1 F-100.2 F 86-134 18-20 96-124/39-70 96 Gen: NAD at rest Heart: RRR Lung: decreased breath sounds at the bases Abd: soft, nontender Ext: LLE edema CBC, BMP 01/28/19 05:55 01/29/19 10:20 Active Medications Acetaminophen (Tylenol -) 650 mg PO Q6H PRN PRN Reason: PAIN OR FEVER Last Admin: 01/30/19 09:41 Dose: 650 mg Albuterol Sulfate (Ventolin Hfa Inhaler -) 2 puff IH RQID [facility] Last Admin: 01/30/19 08:04 Dose: 2 puff Budesonide/Formoterol Fumarate (Symbicort 80/4.5mcg -) 1 puff IH BID [facility] Last Admin: 01/30/19 09:33 Dose: 1 puff Gabapentin (Neurontin -) 300 mg PO TID [facility] Last Admin: 01/30/19 06:13 Dose: Not Given Heparin Sodium (Porcine) (Heparin -) 5,000 unit SQ TID [facility] Last Admin: 01/30/19 06:21 Dose: 5,000 unit Ampicillin Sodium/Sulbactam (Sodium 3 gm/ Sodium Chloride) 100 mls @ 200 mls/ hr IVPB Q8H-IV [facility] Last Admin: 01/30/19 09:42 Dose: 200 mls/hr Insulin Aspart (Novolog Vial Sliding Scale -) 1 vial SQ Q4H [facility]; Protocol Last Admin: 01/30/19 11:04 Dose: 6 units Insulin Detemir (Levemir Vial) 25 units SQ BID@0700,2200 [facility] Last Admin: 01/30/19 06:21 Dose: 25 units Lactic Acid (Lac-Hydrin 12) 1 applic TP BID [facility] Last Admin: 01/30/19 09:33 Dose: 1 applic Oxycodone HCl (Roxicodone -) 10 mg PO Q6H PRN PRN Reason: PAIN LEVEL 6-10 Last Admin: 01/30/19 08:01 Dose: 10 mg Quetiapine Fumarate (Seroquel -) 200 mg PO HS [facility] Last Admin: 01/29/19 22:22 Dose: 200 mg Triamcinolone Acetonide (Aristocort 0.5% Cream -) 1 applic TP BID [facility] Last Admin: 01/30/19 09:33 Dose: 1 applic Venlafaxine HCl (Effexor Xr -) 150 mg PO DAILY@0800 [facility] Last Admin: 01/30/19 09:32 Dose: 150 mg A/P Diabetic Ketoacidosis resolved COPD Acute Kidney Injury improving Cellulitis HTN - continue antibiotics - inhaled bronchodilators - O2 as needed - rehab/PT - outpt PFTs, CT chest - DVT prophylaxis
--- NOTE | 2019-01-30 13:25 | PN ---
Progress Note, Physician History of Present Illness: Pt seen and examined at bedside. She is awake and alert. She denies shortness of breath. - Current Medication List Current Medications: Active Medications Acetaminophen (Tylenol -) 650 mg PO Q6H PRN PRN Reason: PAIN OR FEVER Last Admin: 01/30/19 09:41 Dose: 650 mg Albuterol Sulfate (Ventolin Hfa Inhaler -) 2 puff IH RQID [facility] Last Admin: 01/30/19 13:05 Dose: 2 puff Budesonide/Formoterol Fumarate (Symbicort 80/4.5mcg -) 1 puff IH BID [facility] Last Admin: 01/30/19 09:33 Dose: 1 puff Gabapentin (Neurontin -) 300 mg PO TID [facility] Last Admin: 01/30/19 13:06 Dose: 300 mg Heparin Sodium (Porcine) (Heparin -) 5,000 unit SQ TID [facility] Last Admin: 01/30/19 13:06 Dose: 5,000 unit Ampicillin Sodium/Sulbactam (Sodium 3 gm/ Sodium Chloride) 100 mls @ 200 mls/ hr IVPB Q8H-IV [facility] Last Admin: 01/30/19 09:42 Dose: 200 mls/hr Insulin Aspart (Novolog Vial Sliding Scale -) 1 vial SQ Q4H [facility]; Protocol Last Admin: 01/30/19 11:04 Dose: 6 units Insulin Detemir (Levemir Vial) 25 units SQ BID@0700,2200 [facility] Last Admin: 01/30/19 06:21 Dose: 25 units Lactic Acid (Lac-Hydrin 12) 1 applic TP BID [facility] Last Admin: 01/30/19 09:33 Dose: 1 applic Oxycodone HCl (Roxicodone -) 10 mg PO Q6H PRN PRN Reason: PAIN LEVEL 6-10 Last Admin: 01/30/19 08:01 Dose: 10 mg Quetiapine Fumarate (Seroquel -) 200 mg PO HS [facility] Last Admin: 01/29/19 22:22 Dose: 200 mg Triamcinolone Acetonide (Aristocort 0.5% Cream -) 1 applic TP BID [facility] Last Admin: 01/30/19 09:33 Dose: 1 applic Venlafaxine HCl (Effexor Xr -) 150 mg PO DAILY@0800 [facility] Last Admin: 01/30/19 09:32 Dose: 150 mg - Objective Vital Signs: Vital Signs Temperature 99.2 F 01/30/19 09:00 Pulse Rate 120 H 01/30/19 09:00 Respiratory Rate 20 01/30/19 09:00 Blood Pressure 124/70 01/30/19 09:00 O2 Sat by Pulse Oximetry (%) 96 01/29/19 21:00 Constitutional: Yes: Calm Eyes: Yes: Conjunctiva Clear HENT: Yes: Atraumatic Cardiovascular: Yes: S1, S2 Respiratory: Yes: CTA Bilaterally Gastrointestinal: Yes: Soft Genitourinary: Yes: WNL Integumentary: Yes: Erythema Wound/Incision: Yes: Open to air Neurological: Yes: Oriented Psychiatric: Yes: Oriented Labs: CBC, BMP 01/28/19 05:55 01/29/19 10:20 Problem List - Problems (1) COPD (chronic obstructive pulmonary disease) Code(s): J44.9 - CHRONIC OBSTRUCTIVE PULMONARY DISEASE, UNSPECIFIED (2) Hyperkalemia Code(s): E87.5 - HYPERKALEMIA (3) ELIZABETH (acute kidney injury) Code(s): N17.9 - ACUTE KIDNEY FAILURE, UNSPECIFIED Assessment/Plan Current Medications Generic Name Dose Route Start Last Admin Trade Name Freq PRN Reason Stop Dose Admin Acetaminophen 650 mg 01/27/19 03:09 01/30/19 09:41 Tylenol - PO 650 mg Q6H PRN Administration PAIN OR FEVER Albuterol Sulfate 2 puff 01/27/19 20:00 01/30/19 13:05 Ventolin Hfa Inhaler - IH 2 puff RQID [facility] Administration Budesonide/Formoterol Fumarate 1 puff 01/27/19 10:00 01/30/19 09:33 Symbicort 80/4.5mcg - IH 1 puff BID [facility] Administration Gabapentin 300 mg 01/27/19 14:00 01/30/19 13:06 Neurontin - PO 300 mg TID [facility] Administration Heparin Sodium (Porcine) 5,000 unit 01/27/19 06:00 01/30/19 13:06 Heparin - SQ 5,000 unit TID [facility] Administration Ampicillin Sodium/Sulbactam 100 mls @ 200 mls/hr 01/29/19 11:15 01/30/19 09: 42 Sodium 3 gm/ Sodium Chloride IVPB 200 mls/hr Q8H-IV [facility] Administration Insulin Aspart 1 vial 01/28/19 23:09 01/30/19 11:04 Novolog Vial Sliding Scale - SQ 6 units Q4H [facility] Administration Protocol Insulin Detemir 25 units 01/28/19 23:08 01/30/19 06:21 Levemir Vial SQ 25 units BID@0700,2200 [facility] Administration Lactic Acid 1 applic 01/28/19 11:00 01/30/19 09:33 Lac-Hydrin 12 TP 1 applic BID [facility] Administration Oxycodone HCl 10 mg 01/28/19 22:53 01/30/19 08:01 Roxicodone - PO 10 mg Q6H PRN Administration PAIN LEVEL 6-10 Quetiapine Fumarate 200 mg 01/27/19 22:00 01/29/19 22:22 Seroquel - PO 200 mg HS [facility] Administration Triamcinolone Acetonide 1 applic 01/28/19 11:00 01/30/19 09:33 Aristocort 0.5% Cream - TP 1 applic BID [facility] Administration Venlafaxine HCl 150 mg 01/27/19 08:00 01/30/19 09:32 Effexor Xr - PO 150 mg DAILY@0800 [facility] Administration Impression 1. CKD 2. HTN 3. s/p fall 4. DM 5. ELIZABETH 6. hyperkalemia Plan - check bmp - cont abx - wound care - rehab eval - check labs in am - monitor blood sugar
[2019-01-30] MEDS ORDERED: PT OWN MED DRAWER 7, Y5N ONE (16:34)
--- NOTE | 2019-01-30 16:40 | PN ---
Progress Note (short form) - Note Progress Note: alert continued RLE pain duplex with no dvt prominant right inguinal node Vital Signs Period Temp Pulse Resp BP Sys/Boothe Pulse Ox Last 24 Hr 99.1 F-100.2 F 88-134 18-20 96-124/39-70 96-96 cor-rrr lungs clear abd soft,nt ext rle with pain , RLE blister with ?purulence CBC, BMP 01/28/19 05:55 01/29/19 10:20 hgbA1c 13 imp/reccd RLE cellulitis still painful- ?abscess stat ct scan of leg vanco/zosyn surgery to see-d/w dr oneill blood cultures negative but has exposure to cats diabetes out of control (noncompliance) ckd
[2019-01-30] MEDS ORDERED: PIPERACILLIN/TAZOBACTAM 3.375 GM VIAL IVPB ONE (16:48)
[2019-01-30] MEDS ORDERED: DEXTROSE 5%-WATER - 50 ML IVPB ONE (16:48)
[2019-01-30] MEDS: PIPERACILLIN/TAZOB 3.375 GM 3.375 GM in DEXTROSE 5%-WATER - 50 ML IVPB SCH (17:05)
[2019-01-30] MEDS: VANCOMYCIN 1 GRAM (PRE-DOCKED) 1,000 MG/250 ML BAG IVPB SCH (17:06)
--- NOTE | 2019-01-30 18:58 | PN ---
Progress Note (short form) - Note Progress Note: [facility] 68 y/o F hx of HTN, T2DM, Anxiety,depression,COPD and non-compliance with medication regimen arrived to Emergency room at [facility] post fall at home. Patient is not the best historian, reports falling on the floor while getting up from the couch. She fell on her back and denies hitting her head. Patient complain of dizziness, headache, nausea and right lower leg pain. She reports being on the floor for about an hour before calling EMS. She has been able to ambulate while here in the ER. She denies LOC, vomiting, diarrhea, bloody stools, fevers , chills. Patient states she lives alone. PE Right leg - tender to touch. Palpable pulses. Blister on right [place]udson. S/P fall 1. CT reviewed. Awaiting official read. Don't see any abscess collection on CT. 2. Might need debridement of blister in OR Ced Venegas DO
[2019-01-30] MEDS: QUEtiapine FUMARATE 200 MG TABLET PO SCH (22:11)
[2019-01-31] MEDS ORDERED: DEXTROSE 5%-WATER - 50 ML IVPB ONE ×3 (01:23→17:33)
[2019-01-31] MEDS ORDERED: PIPERACILLIN/TAZOBACTAM 3.375 GM VIAL IVPB ONE ×3 (01:23→17:33)
[2019-01-31] MEDS: PIPERACILLIN/TAZOB 3.375 GM 3.375 GM in DEXTROSE 5%-WATER - 50 ML IVPB SCH ×3 (01:35→17:35)
[2019-01-31] MEDS: INSULIN SLIDING SCALE (NOVOLOG) 1 VIAL SQ SCH ×6 (03:06→21:30)
[2019-01-31] MEDS: GABAPENTIN 300 MG CAPSULE (FP) PO SCH ×3 (06:27→21:18)
[2019-01-31] MEDS: INSULIN (LEVEMIR) 100 UNITS/ML UNITS SQ SCH ×2 (06:27→21:18)
[2019-01-31] MEDS: HEPARIN NA (PORCINE) 5,000 UNITS/ML 1ML VIAL SQ SCH ×3 (06:27→21:19)
[2019-01-31] MEDS ORDERED: PT OWN MED DRAWER 7, Y5N ONE ×2 (08:54→15:31)
[2019-01-31] MEDS: oxyCODONE HCL 5 MG TABLET PO PRN ×2 (08:58→18:42)
[2019-01-31] MEDS: VENLAFAXINE HCL 75 MG E.R. CAPSULES (FP) PO SCH (08:59)
[2019-01-31] MEDS: BUDESONIDE/FORMETEROL FUMARATE 80/4.5 mcg INHALER IH SCH ×2 (09:00→21:34)
[2019-01-31] MEDS: TRIAMCINOLONE ACET 0.5% CREAM 15 GM TUBE TP SCH ×2 (09:01→21:27)
[2019-01-31] MEDS: ALBUTEROL SO4 8 GM HFA INHALER IH SCH ×4 (09:01→21:18)
[2019-01-31] MEDS: AMMONIUM LACTATE 12% LOTION 225 GM BOTTLE TP SCH ×2 (09:01→21:31)
--- NOTE | 2019-01-31 10:32 | PN ---
Progress Note (short form) - Note Progress Note: Pt seen by Dr. Venegas yesterday. CT scan without any collection/abscess. He leg remains tender and with a blister draining serous material. Vital Signs Period Temp Pulse Resp BP Sys/Boothe Pulse Ox Last 24 Hr 98 F-99.4 F 98-117 18-20 93-122/54-62 95 RLE: with 5x5 cm blister draining a small amount of serous drainge. Scratches to b/l knee to toes. Feet warm to touch b/l. RLE with swelling to leg/calf CBC, BMP 01/28/19 05:55 01/29/19 10:20 CT scan: no abscess or collection seen. No SQ emphysema. Microbiology 01/26/19 18:50 Blood - Peripheral Venous Blood Culture - Preliminary NO GROWTH OBTAINED AFTER 96 HOURS, INCUBATION TO CONTINUE FOR 1 DAYS. 01/26/19 18:50 Blood - Peripheral Venous Blood Culture - Preliminary NO GROWTH OBTAINED AFTER 96 HOURS, INCUBATION TO CONTINUE FOR 1 DAYS. A/p: 68 yo female with RLE blister/swelling and erythema Recommend debridment but patient refusing at this time. There is an intact blister with some surrounding serous drainage, the RLE remains swollen and with erythema. She is being treated with zosyn. For now ordered wound care with xeroform/kerlix and leg elevation. D/w Dr. Venegas
--- NOTE | 2019-01-31 10:56 | PN ---
Progress Note (short form) - Note Progress Note: alert continued RLE pain ct scan no abscess seen by surgery, refusing debridement Vital Signs Period Temp Pulse Resp BP Sys/Boothe Pulse Ox Last 24 Hr 98 F-99.4 F 98-117 18-20 93-122/54-62 95 cor-rrr lungs clear ext +edema of the RLE with blister with serous drainage, foot is swollen +tenderness to palpation CBC, BMP 01/28/19 05:55 hgbA1c 13 imp/reccd RLE cellulitis still painful- vanco/zosyn refused labs this am will order for tomorrow refused debridement diabetes out of control (noncompliance) ckd
[2019-01-31 11:15] LABS: ALBUMIN 2.2 g/dl (3.4-5.0); BILIRUBIN,TOTAL 0.4 mg/dL (0.2-1); BLOOD UREA NITROGEN 29.9 mg/dL (7-18); CALCIUM 8.4 mg/dL (8.5-10.1); CREATININE 1.3 mg/dL (0.55-1.3); POTASSIUM 3.8 mmol/L (3.5-5.1); TOT PROT 6.4 g/dl (6.4-8.2)
--- NOTE | 2019-01-31 11:15 | PN ---
Progress Note, Physician Chief Complaint: EVENTS AND NOTES REVIEWED PATIENT IN BED C/O CHRONIC PAIN CT SCAN LEGS NO ABSCESS NO FEVERS OVERNIGHT VERY NON-COMPLIANT FOLLOWING MEDICAL REGIMEN AND FOLLOW UPS OUTPATIENT - Current Medication List Current Medications: Active Medications Acetaminophen (Tylenol -) 650 mg PO Q6H PRN PRN Reason: PAIN OR FEVER Last Admin: 01/30/19 09:41 Dose: 650 mg Albuterol Sulfate (Ventolin Hfa Inhaler -) 2 puff IH RQID [facility] Last Admin: 01/31/19 09:01 Dose: 2 puff Budesonide/Formoterol Fumarate (Symbicort 80/4.5mcg -) 1 puff IH BID [facility] Last Admin: 01/31/19 09:00 Dose: 1 puff Gabapentin (Neurontin -) 300 mg PO TID [facility] Last Admin: 01/31/19 06:27 Dose: 300 mg Heparin Sodium (Porcine) (Heparin -) 5,000 unit SQ TID [facility] Last Admin: 01/31/19 06:27 Dose: 5,000 unit Vancomycin HCl (Vancomycin (Pre-Docked)) 1,000 mg in 250 mls @ 200 mls/hr IVPB Q24H [facility]; Protocol Last Admin: 01/30/19 17:06 Dose: 200 mls/hr Piperacillin Sod/Tazobactam (Sod 3.375 gm/ Dextrose) 50 mls @ 100 mls/hr IVPB Q8H-IV [facility]; Protocol Last Admin: 01/31/19 09:02 Dose: 100 mls/hr Insulin Aspart (Novolog Vial Sliding Scale -) 1 vial SQ Q4H [facility]; Protocol Last Admin: 01/31/19 06:37 Dose: 6 units Insulin Detemir (Levemir Vial) 25 units SQ BID@0700,2200 [facility] Last Admin: 01/31/19 06:27 Dose: 25 units Lactic Acid (Lac-Hydrin 12) 1 applic TP BID [facility] Last Admin: 01/31/19 09:01 Dose: 1 applic Oxycodone HCl (Roxicodone -) 10 mg PO Q6H PRN PRN Reason: PAIN LEVEL 6-10 Last Admin: 01/31/19 08:58 Dose: 10 mg Quetiapine Fumarate (Seroquel -) 200 mg PO HS [facility] Last Admin: 01/30/19 22:11 Dose: 200 mg Triamcinolone Acetonide (Aristocort 0.5% Cream -) 1 applic TP BID [facility] Last Admin: 01/31/19 09:01 Dose: 1 applic Venlafaxine HCl (Effexor Xr -) 150 mg PO DAILY@0800 [facility] Last Admin: 01/31/19 08:59 Dose: 150 mg - Objective Vital Signs: Vital Signs Temperature 99.0 F 01/31/19 05:00 Pulse Rate 98 H 01/31/19 05:00 Respiratory Rate 20 01/31/19 05:00 Blood Pressure 93/54 L 01/31/19 05:00 O2 Sat by Pulse Oximetry (%) 95 01/30/19 19:53 Constitutional: Yes: Mild Distress Cardiovascular: Yes: WNL Respiratory: Yes: WNL Gastrointestinal: Yes: Soft Genitourinary: Yes: Incontinence Musculoskeletal: Yes: Back Pain Edema: Yes Edema: LLE: Trace, RLE: Trace Integumentary: Yes: Pressure Ulcer, Rash, Venous Stasis Changes Wound/Incision: Yes: Dressing Dry and Intact, Excoriated Neurological: Yes: Pre-Existing Deficit ...Motor Strength: LLE, RLE Psychiatric: Yes: Agitated, Other Labs: CBC, BMP 01/28/19 05:55 Problem List - Problems (1) COPD (chronic obstructive pulmonary disease) Code(s): J44.9 - CHRONIC OBSTRUCTIVE PULMONARY DISEASE, UNSPECIFIED (2) Cellulitis Code(s): L03.90 - CELLULITIS, UNSPECIFIED (3) DKA, type 2, not at goal Code(s): E11.10 - TYPE 2 DIABETES MELLITUS WITH KETOACIDOSIS WITHOUT COMA (4) Dermatitis Code(s): L30.9 - DERMATITIS, UNSPECIFIED (5) Edema Code(s): R60.9 - EDEMA, UNSPECIFIED (6) Weakness Code(s): R53.1 - WEAKNESS (7) Anxiety Code(s): F41.9 - ANXIETY DISORDER, UNSPECIFIED (8) CKD (chronic kidney disease) Code(s): N18.9 - CHRONIC KIDNEY DISEASE, UNSPECIFIED (9) Depression Code(s): F32.9 - MAJOR DEPRESSIVE DISORDER, SINGLE EPISODE, UNSPECIFIED (10) Noncompliance with diabetes treatment Code(s): Z91.19 - PATIENT'S NONCOMPLIANCE W OTH MEDICAL TREATMENT AND REGIMEN Assessment/Plan MY MEDICAL OPINION IS MS. 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 SHE HAS BEEN ADMITTED MULTIPLE TIMES FOR CHRONIC LEG WOUNDS, ULCERS AND MISMANAGMENT OF HER DIABETES AND OTHER CO-MORBIDITIES. SHE WILL NEED IV ABX AND WOUND CARE FOR HER LEG CELLULITIS/ULCERS. NUTRITION NEEDS TO BE OPTIMIZED WHILE FOLLOWING A DIABETIC DIET. PSYCHIATRY AND ENDOCRINE CONSULTS HAVE BEEN CALLED FOR ASSISTANCE WITH HER BGM CHECKS AND COMPETENCY. I RECOMMEND SHE GO TO A SNF FOR WOUND CARE/DIABETES MANAGEMENT AND GAIT STRENGTHENING.
--- NOTE | 2019-01-31 11:25 | PN ---
Progress Note, Physician History of Present Illness: Pt seen and examined at bedside. She is awake and alert. She denies shortness of breath. - Current Medication List Current Medications: Active Medications Acetaminophen (Tylenol -) 650 mg PO Q6H PRN PRN Reason: PAIN OR FEVER Last Admin: 01/30/19 09:41 Dose: 650 mg Albuterol Sulfate (Ventolin Hfa Inhaler -) 2 puff IH RQID [facility] Last Admin: 01/31/19 09:01 Dose: 2 puff Budesonide/Formoterol Fumarate (Symbicort 80/4.5mcg -) 1 puff IH BID [facility] Last Admin: 01/31/19 09:00 Dose: 1 puff Gabapentin (Neurontin -) 300 mg PO TID [facility] Last Admin: 01/31/19 06:27 Dose: 300 mg Heparin Sodium (Porcine) (Heparin -) 5,000 unit SQ TID [facility] Last Admin: 01/31/19 06:27 Dose: 5,000 unit Vancomycin HCl (Vancomycin (Pre-Docked)) 1,000 mg in 250 mls @ 200 mls/hr IVPB Q24H [facility]; Protocol Last Admin: 01/30/19 17:06 Dose: 200 mls/hr Piperacillin Sod/Tazobactam (Sod 3.375 gm/ Dextrose) 50 mls @ 100 mls/hr IVPB Q8H-IV [facility]; Protocol Last Admin: 01/31/19 09:02 Dose: 100 mls/hr Insulin Aspart (Novolog Vial Sliding Scale -) 1 vial SQ Q4H [facility]; Protocol Last Admin: 01/31/19 06:37 Dose: 6 units Insulin Detemir (Levemir Vial) 25 units SQ BID@0700,2200 [facility] Last Admin: 01/31/19 06:27 Dose: 25 units Lactic Acid (Lac-Hydrin 12) 1 applic TP BID [facility] Last Admin: 01/31/19 09:01 Dose: 1 applic Oxycodone HCl (Roxicodone -) 10 mg PO Q6H PRN PRN Reason: PAIN LEVEL 6-10 Last Admin: 01/31/19 08:58 Dose: 10 mg Quetiapine Fumarate (Seroquel -) 200 mg PO HS [facility] Last Admin: 01/30/19 22:11 Dose: 200 mg Triamcinolone Acetonide (Aristocort 0.5% Cream -) 1 applic TP BID [facility] Last Admin: 01/31/19 09:01 Dose: 1 applic Venlafaxine HCl (Effexor Xr -) 150 mg PO DAILY@0800 [facility] Last Admin: 01/31/19 08:59 Dose: 150 mg - Objective Vital Signs: Vital Signs Temperature 99.0 F 01/31/19 05:00 Pulse Rate 98 H 01/31/19 05:00 Respiratory Rate 20 01/31/19 05:00 Blood Pressure 93/54 L 01/31/19 05:00 O2 Sat by Pulse Oximetry (%) 95 01/30/19 19:53 Constitutional: Yes: Calm Eyes: Yes: Conjunctiva Clear HENT: Yes: Atraumatic Cardiovascular: Yes: S1, S2 Respiratory: Yes: CTA Bilaterally Gastrointestinal: Yes: Soft Genitourinary: Yes: WNL Musculoskeletal: Yes: WNL Edema: Yes Edema: RLE: 1+ Wound/Incision: Yes: Dressing Dry and Intact Neurological: Yes: Oriented Psychiatric: Yes: Oriented Labs: CBC, BMP 01/28/19 05:55 01/31/19 10:25 Problem List - Problems (1) COPD (chronic obstructive pulmonary disease) Code(s): J44.9 - CHRONIC OBSTRUCTIVE PULMONARY DISEASE, UNSPECIFIED (2) Hyperkalemia Code(s): E87.5 - HYPERKALEMIA (3) ELIZABETH (acute kidney injury) Code(s): N17.9 - ACUTE KIDNEY FAILURE, UNSPECIFIED Assessment/Plan Current Medications Generic Name Dose Route Start Last Admin Trade Name Freq PRN Reason Stop Dose Admin Acetaminophen 650 mg 01/27/19 03:09 01/30/19 09:41 Tylenol - PO 650 mg Q6H PRN Administration PAIN OR FEVER Albuterol Sulfate 2 puff 01/27/19 20:00 01/31/19 09:01 Ventolin Hfa Inhaler - IH 2 puff RQID [facility] Administration Budesonide/Formoterol Fumarate 1 puff 01/27/19 10:00 01/31/19 09:00 Symbicort 80/4.5mcg - IH 1 puff BID [facility] Administration Gabapentin 300 mg 01/27/19 14:00 01/31/19 06:27 Neurontin - PO 300 mg TID [facility] Administration Heparin Sodium (Porcine) 5,000 unit 01/27/19 06:00 01/31/19 06:27 Heparin - SQ 5,000 unit TID [facility] Administration Vancomycin HCl 1,000 mg in 250 mls @ 200 mls/hr 01/30/19 16:45 01/30/19 17:06 Vancomycin (Pre-Docked) IVPB 200 mls/hr Q24H [facility] Administration Protocol Piperacillin Sod/Tazobactam 50 mls @ 100 mls/hr 01/30/19 18:00 01/31/19 09:02 Sod 3.375 gm/ Dextrose IVPB 100 mls/hr Q8H-IV [facility] Administration Protocol Insulin Aspart 1 vial 01/28/19 23:09 01/31/19 06:37 Novolog Vial Sliding Scale - SQ 6 units Q4H [facility] Administration Protocol Insulin Detemir 25 units 01/28/19 23:08 01/31/19 06:27 Levemir Vial SQ 25 units BID@0700,2200 KACIE Administration Lactic Acid 1 applic 01/28/19 11:00 01/31/19 09:01 Lac-Hydrin 12 TP 1 applic BID KACIE Administration Oxycodone HCl 10 mg 01/28/19 22:53 01/31/19 08:58 Roxicodone - PO 10 mg Q6H PRN Administration PAIN LEVEL 6-10 Quetiapine Fumarate 200 mg 01/27/19 22:00 01/30/19 22:11 Seroquel - PO 200 mg HS KACIE Administration Triamcinolone Acetonide 1 applic 01/28/19 11:00 01/31/19 09:01 Aristocort 0.5% Cream - TP 1 applic BID KACIE Administration Venlafaxine HCl 150 mg 01/27/19 08:00 01/31/19 08:59 Effexor Xr - PO 150 mg DAILY@0800 KACIE Administration Impression 1. CKD 2. HTN 3. s/p fall 4. DM 5. ELIZABETH 6. hyperkalemia Plan - renal function stabilizing - wound care - abx per primary team - rehab eval - check labs in am - monitor blood sugar
--- NOTE | 2019-01-31 11:34 | PN ---
Progress Note, Physician History of Present Illness: pulmonary alert,c/o rle pain,+ bailon - Current Medication List Current Medications: Active Medications Acetaminophen (Tylenol -) 650 mg PO Q6H PRN PRN Reason: PAIN OR FEVER Last Admin: 01/30/19 09:41 Dose: 650 mg Albuterol Sulfate (Ventolin Hfa Inhaler -) 2 puff IH RQID [facility] Last Admin: 01/31/19 09:01 Dose: 2 puff Budesonide/Formoterol Fumarate (Symbicort 80/4.5mcg -) 1 puff IH BID [facility] Last Admin: 01/31/19 09:00 Dose: 1 puff Gabapentin (Neurontin -) 300 mg PO TID [facility] Last Admin: 01/31/19 06:27 Dose: 300 mg Heparin Sodium (Porcine) (Heparin -) 5,000 unit SQ TID [facility] Last Admin: 01/31/19 06:27 Dose: 5,000 unit Vancomycin HCl (Vancomycin (Pre-Docked)) 1,000 mg in 250 mls @ 200 mls/hr IVPB Q24H [facility]; Protocol Last Admin: 01/30/19 17:06 Dose: 200 mls/hr Piperacillin Sod/Tazobactam (Sod 3.375 gm/ Dextrose) 50 mls @ 100 mls/hr IVPB Q8H-IV [facility]; Protocol Last Admin: 01/31/19 09:02 Dose: 100 mls/hr Insulin Aspart (Novolog Vial Sliding Scale -) 1 vial SQ Q4H [facility]; Protocol Last Admin: 01/31/19 06:37 Dose: 6 units Insulin Detemir (Levemir Vial) 25 units SQ BID@0700,2200 [facility] Last Admin: 01/31/19 06:27 Dose: 25 units Lactic Acid (Lac-Hydrin 12) 1 applic TP BID [facility] Last Admin: 01/31/19 09:01 Dose: 1 applic Oxycodone HCl (Roxicodone -) 10 mg PO Q6H PRN PRN Reason: PAIN LEVEL 6-10 Last Admin: 01/31/19 08:58 Dose: 10 mg Quetiapine Fumarate (Seroquel -) 200 mg PO HS [facility] Last Admin: 01/30/19 22:11 Dose: 200 mg Triamcinolone Acetonide (Aristocort 0.5% Cream -) 1 applic TP BID [facility] Last Admin: 01/31/19 09:01 Dose: 1 applic Venlafaxine HCl (Effexor Xr -) 150 mg PO DAILY@0800 [facility] Last Admin: 01/31/19 08:59 Dose: 150 mg - Objective Vital Signs: Vital Signs Temperature 99.0 F 01/31/19 05:00 Pulse Rate 98 H 01/31/19 05:00 Respiratory Rate 20 01/31/19 05:00 Blood Pressure 93/54 L 01/31/19 05:00 O2 Sat by Pulse Oximetry (%) 95 01/30/19 19:53 Constitutional: Yes: Well Nourished, Calm Eyes: Yes: WNL HENT: Yes: WNL Neck: Yes: WNL Cardiovascular: Yes: Regular Rate and Rhythm, S1, S2 Respiratory: Yes: Diminished Gastrointestinal: Yes: Normal Bowel Sounds, Soft Extremities: Yes: WNL, Erythema (rle) Edema: Yes Labs: CBC, BMP 01/31/19 10:25 Problem List - Problems (1) COPD (chronic obstructive pulmonary disease) Code(s): J44.9 - CHRONIC OBSTRUCTIVE PULMONARY DISEASE, UNSPECIFIED (2) DKA, type 2, not at goal Code(s): E11.10 - TYPE 2 DIABETES MELLITUS WITH KETOACIDOSIS WITHOUT COMA (3) Electrolyte abnormality Code(s): E87.8 - OTH DISORDERS OF ELECTROLYTE AND FLUID BALANCE, NEC (4) Hyperkalemia Code(s): E87.5 - HYPERKALEMIA (5) Status post fall Code(s): Z91.81 - HISTORY OF FALLING (6) ELIZABETH (acute kidney injury) Code(s): N17.9 - ACUTE KIDNEY FAILURE, UNSPECIFIED (7) Diabetes Code(s): E11.9 - TYPE 2 DIABETES MELLITUS WITHOUT COMPLICATIONS Qualifiers: Diabetes mellitus type: type 2 (8) Dyspnea on exertion Code(s): R06.09 - OTHER FORMS OF DYSPNEA (9) Noncompliance with diabetes treatment Code(s): Z91.19 - PATIENT'S NONCOMPLIANCE W OTH MEDICAL TREATMENT AND REGIMEN Assessment/Plan A/P Diabetic Ketoacidosis resolved COPD Acute Kidney Injury improving Cellulitis HTN - antibiotics - inhaled bronchodilators - O2 as needed - rehab/PT - outpt PFTs, CT chest - DVT prophylaxis DR RUSSELL
[2019-01-31] MEDS ORDERED: INSULIN (NOVOLOG) ASPART 100 UNITS/ML 10ML VIAL ONE (15:24)
[2019-01-31] MEDS: VANCOMYCIN 1 GRAM (PRE-DOCKED) 1,000 MG/250 ML BAG IVPB SCH (15:57)
[2019-01-31] MEDS: ACETAMINOPHEN 325 MG TABLET (FP) PO PRN (19:39)
[2019-01-31] MEDS: QUEtiapine FUMARATE 200 MG TABLET PO SCH (21:18)
[2019-02-01] MEDS ORDERED: PIPERACILLIN/TAZOBACTAM 3.375 GM VIAL IVPB ONE ×3 (01:07→18:14)
[2019-02-01] MEDS ORDERED: DEXTROSE 5%-WATER - 50 ML IVPB ONE ×3 (01:07→18:14)
[2019-02-01] MEDS: PIPERACILLIN/TAZOB 3.375 GM 3.375 GM in DEXTROSE 5%-WATER - 50 ML IVPB SCH ×3 (01:22→18:34)
[2019-02-01] MEDS: GABAPENTIN 300 MG CAPSULE (FP) PO SCH ×3 (05:07→22:13)
[2019-02-01] MEDS: ACETAMINOPHEN 325 MG TABLET (FP) PO PRN ×2 (05:08→11:27)
[2019-02-01] MEDS: oxyCODONE HCL 5 MG TABLET PO PRN ×2 (05:16→11:26)
[2019-02-01] MEDS: HEPARIN NA (PORCINE) 5,000 UNITS/ML 1ML VIAL SQ SCH ×3 (05:16→22:13)
[2019-02-01] MEDS: INSULIN SLIDING SCALE (NOVOLOG) 1 VIAL SQ SCH ×4 (06:42→22:19)
[2019-02-01] MEDS: INSULIN (LEVEMIR) 100 UNITS/ML UNITS SQ SCH ×2 (06:45→22:18)
--- NOTE | 2019-02-01 07:04 | PN ---
Progress Note, Physician Chief Complaint: PAIN BOTH LEGS DIFFICULTY WITH SUGARS NOT MOVING MUCH - Current Medication List Current Medications: Active Medications Acetaminophen (Tylenol -) 650 mg PO Q6H PRN PRN Reason: PAIN OR FEVER Last Admin: 02/01/19 05:08 Dose: 650 mg Albuterol Sulfate (Ventolin Hfa Inhaler -) 2 puff IH RQID [facility] Last Admin: 01/31/19 21:18 Dose: 2 puff Budesonide/Formoterol Fumarate (Symbicort 80/4.5mcg -) 1 puff IH BID [facility] Last Admin: 01/31/19 21:34 Dose: 1 puff Gabapentin (Neurontin -) 300 mg PO TID [facility] Last Admin: 02/01/19 05:07 Dose: 300 mg Heparin Sodium (Porcine) (Heparin -) 5,000 unit SQ TID [facility] Last Admin: 02/01/19 05:16 Dose: 5,000 unit Vancomycin HCl (Vancomycin (Pre-Docked)) 1,000 mg in 250 mls @ 200 mls/hr IVPB Q24H [facility]; Protocol Last Admin: 01/31/19 15:57 Dose: 200 mls/hr Piperacillin Sod/Tazobactam (Sod 3.375 gm/ Dextrose) 50 mls @ 100 mls/hr IVPB Q8H-IV [facility]; Protocol Last Admin: 02/01/19 01:22 Dose: 100 mls/hr Insulin Aspart (Novolog Vial Sliding Scale -) 1 vial SQ ACHS [facility]; Protocol Last Admin: 02/01/19 06:42 Dose: 9 units Insulin Detemir (Levemir Vial) 25 units SQ BID@0700,2200 [facility] Last Admin: 02/01/19 06:45 Dose: 25 units Lactic Acid (Lac-Hydrin 12) 1 applic TP BID [facility] Last Admin: 01/31/19 21:31 Dose: 1 applic Oxycodone HCl (Roxicodone -) 10 mg PO Q6H PRN PRN Reason: PAIN LEVEL 6-10 Last Admin: 02/01/19 05:16 Dose: 10 mg Quetiapine Fumarate (Seroquel -) 200 mg PO HS [facility] Last Admin: 01/31/19 21:18 Dose: 200 mg Triamcinolone Acetonide (Aristocort 0.5% Cream -) 1 applic TP BID [facility] Last Admin: 01/31/19 21:27 Dose: 1 applic Venlafaxine HCl (Effexor Xr -) 150 mg PO DAILY@0800 [facility] Last Admin: 01/31/19 08:59 Dose: 150 mg - Objective Vital Signs: Vital Signs Temperature 99.5 F 02/01/19 03:13 Pulse Rate 95 H 02/01/19 03:13 Respiratory Rate 20 02/01/19 03:13 Blood Pressure 93/57 L 02/01/19 03:13 O2 Sat by Pulse Oximetry (%) 100 01/31/19 09:00 Constitutional: Yes: Anxious Eyes: Yes: EOM Intact HENT: Yes: Normocephalic Neck: Yes: Trachea Midline Cardiovascular: Yes: Regular Rate and Rhythm Respiratory: Yes: CTA Bilaterally Gastrointestinal: Yes: Normal Bowel Sounds ...Rectal Exam: Yes: Deferred Genitourinary: Yes: WNL Musculoskeletal: Yes: Joint Swelling, Muscle Pain Extremities: Yes: Delayed Capillary Refill Edema: Yes Edema: LLE: Trace, RLE: Trace Integumentary: Yes: Erythema, Onychomycosis, Venous Stasis Changes Wound/Incision: Yes: Draining, Excoriated, Unapproximated Neurological: Yes: Alert, Oriented Labs: CBC, BMP 01/28/19 05:55 01/31/19 10:25 Problem List - Problems (1) COPD (chronic obstructive pulmonary disease) Code(s): J44.9 - CHRONIC OBSTRUCTIVE PULMONARY DISEASE, UNSPECIFIED (2) DKA, type 2, not at goal Code(s): E11.10 - TYPE 2 DIABETES MELLITUS WITH KETOACIDOSIS WITHOUT COMA (3) Dermatitis Code(s): L30.9 - DERMATITIS, UNSPECIFIED (4) Edema Code(s): R60.9 - EDEMA, UNSPECIFIED (5) Hypermagnesemia Code(s): E83.41 - HYPERMAGNESEMIA (6) Status post fall Code(s): Z91.81 - HISTORY OF FALLING Assessment/Plan Current Active Problems COPD (chronic obstructive pulmonary disease) (Acute) Cellulitis (Acute) DKA (diabetic ketoacidoses) (Acute) DKA, type 2, not at goal (Acute) Dermatitis (Acute) Edema (Acute) Electrolyte abnormality (Acute) Hyperkalemia (Acute) Hypermagnesemia (Acute) Status post fall (Acute) Weakness (Acute) Abnormal Lab Results 01/31/19 10:25 Sodium 135 L BUN 29.9 H Random Glucose 207 H Calcium 8.4 L Alkaline Phosphatase 142 H Albumin 2.2 L Laboratory Results - last 24 hr 01/31/19 01/31/19 01/31/19 10:25 11:16 15:14 Sodium 135 L Potassium 3.8 Chloride 99 Carbon Dioxide 28 Anion Gap 9 BUN 29.9 H Creatinine 1.3 Est GFR (CKD-EPI)AfAm 48.47 Est GFR (CKD-EPI)NonAf 41.82 POC Glucometer 208 189 Random Glucose 207 H Calcium 8.4 L Total Bilirubin 0.4 AST 37 ALT 23 Alkaline Phosphatase 142 H Total Protein 6.4 Albumin 2.2 L 01/31/19 02/01/19 21:26 05:12 Sodium Potassium Chloride Carbon Dioxide Anion Gap BUN Creatinine Est GFR (CKD-EPI)AfAm Est GFR (CKD-EPI)NonAf POC Glucometer 324 306 Random Glucose Calcium Total Bilirubin AST ALT Alkaline Phosphatase Total Protein Albumin PLAN: BG QAS NOVOLOG SCALE LEVEMIR 35 UNITS AM LEVEMIR 30 UNIT AT HS WOUND CARE NUTRITION CONSULT
[2019-02-01] MEDS: VENLAFAXINE HCL 75 MG E.R. CAPSULES (FP) PO SCH (07:57)
[2019-02-01] MEDS: ALBUTEROL SO4 8 GM HFA INHALER IH SCH ×4 (07:57→21:00)
[2019-02-01] MEDS: BUDESONIDE/FORMETEROL FUMARATE 80/4.5 mcg INHALER IH SCH ×2 (09:43→22:34)
[2019-02-01] MEDS: AMMONIUM LACTATE 12% LOTION 225 GM BOTTLE TP SCH ×2 (09:45→22:23)
[2019-02-01] MEDS: TRIAMCINOLONE ACET 0.5% CREAM 15 GM TUBE TP SCH ×2 (09:45→22:24)
--- NOTE | 2019-02-01 09:46 | PN ---
Progress Note, Physician Chief Complaint: Cellulitis DM ELIZABETH History of Present Illness: Previous notes and events reviewed awake and alert NAD continue with RLE pain Leukocytosis showing downtrend - Current Medication List Current Medications: Active Medications Acetaminophen (Tylenol -) 650 mg PO Q6H PRN PRN Reason: PAIN OR FEVER Last Admin: 02/01/19 05:08 Dose: 650 mg Albuterol Sulfate (Ventolin Hfa Inhaler -) 2 puff IH RQID [facility] Last Admin: 02/01/19 07:57 Dose: 2 puff Budesonide/Formoterol Fumarate (Symbicort 80/4.5mcg -) 1 puff IH BID [facility] Last Admin: 01/31/19 21:34 Dose: 1 puff Gabapentin (Neurontin -) 300 mg PO TID [facility] Last Admin: 02/01/19 05:07 Dose: 300 mg Heparin Sodium (Porcine) (Heparin -) 5,000 unit SQ TID [facility] Last Admin: 02/01/19 05:16 Dose: 5,000 unit Vancomycin HCl (Vancomycin (Pre-Docked)) 1,000 mg in 250 mls @ 200 mls/hr IVPB Q24H [facility]; Protocol Last Admin: 01/31/19 15:57 Dose: 200 mls/hr Piperacillin Sod/Tazobactam (Sod 3.375 gm/ Dextrose) 50 mls @ 100 mls/hr IVPB Q8H-IV [facility]; Protocol Last Admin: 02/01/19 01:22 Dose: 100 mls/hr Insulin Aspart (Novolog Vial Sliding Scale -) 1 vial SQ ACHS [facility]; Protocol Last Admin: 02/01/19 06:42 Dose: 9 units Insulin Detemir (Levemir Vial) 35 units SQ AM [facility] Insulin Detemir (Levemir Vial) 30 units SQ HS [facility] Lactic Acid (Lac-Hydrin 12) 1 applic TP BID [facility] Last Admin: 01/31/19 21:31 Dose: 1 applic Oxycodone HCl (Roxicodone -) 10 mg PO Q6H PRN PRN Reason: PAIN LEVEL 6-10 Last Admin: 02/01/19 05:16 Dose: 10 mg Quetiapine Fumarate (Seroquel -) 200 mg PO HS [facility] Last Admin: 01/31/19 21:18 Dose: 200 mg Triamcinolone Acetonide (Aristocort 0.5% Cream -) 1 applic TP BID [facility] Last Admin: 01/31/19 21:27 Dose: 1 applic Venlafaxine HCl (Effexor Xr -) 150 mg PO DAILY@0800 [facility] Last Admin: 02/01/19 07:57 Dose: 150 mg - Objective Vital Signs: Vital Signs Temperature 99.5 F 02/01/19 06:00 Pulse Rate 95 H 02/01/19 06:00 Respiratory Rate 20 02/01/19 06:00 Blood Pressure 93/57 L 02/01/19 06:00 O2 Sat by Pulse Oximetry (%) 100 01/31/19 09:00 Constitutional: Yes: No Distress, Calm Eyes: Yes: Conjunctiva Clear HENT: Yes: Atraumatic Cardiovascular: Yes: Regular Rate and Rhythm Respiratory: Yes: Regular, CTA Bilaterally Gastrointestinal: Yes: Normal Bowel Sounds, Soft Extremities: Yes: Erythema (RLE) Edema: Yes (RLE) Integumentary: Yes: Rash (b/l lower extremity), Other (erythema RLE) Wound/Incision: Yes: Dressing Dry and Intact (purulent drainage noted on dressing) Neurological: Yes: Alert, Oriented Psychiatric: Yes: Alert, Oriented Labs: CBC, BMP 01/28/19 05:55 01/31/19 10:25 Microbiology 01/26/19 18:50 Blood - Peripheral Venous Blood Culture - Final NO GROWTH AFTER 5 DAYS INCUBATION 01/26/19 18:50 Blood - Peripheral Venous Blood Culture - Final NO GROWTH AFTER 5 DAYS INCUBATION Problem List - Problems (1) COPD (chronic obstructive pulmonary disease) Assessment/Plan: -Pulm on board -keep SpO2 >90% -O2 via NC -Symbicort -Bronchodilators Code(s): J44.9 - CHRONIC OBSTRUCTIVE PULMONARY DISEASE, UNSPECIFIED (2) Cellulitis Assessment/Plan: -ID on board -Leukocytosis -afebrile -Vancomycin, Zosyn -BC neg -daily dressing changes -Vascular US RLE shows no DVT -pain control Code(s): L03.90 - CELLULITIS, UNSPECIFIED (3) DKA (diabetic ketoacidoses) Assessment/Plan: -Endocrinology on board -Levemir BID -ISS -HgA1c 13.0% -Anion gap 18~9 -Beta-Hydrox 88.0 Code(s): E11.10 - TYPE 2 DIABETES MELLITUS WITH KETOACIDOSIS WITHOUT COMA Qualifiers: Diabetes mellitus type: type 2 Diabetes mellitus complication detail: without coma Qualified Code(s): E11.10 - Type 2 diabetes mellitus with ketoacidosis without coma (4) Hyperkalemia Assessment/Plan: -K 3.8 -resolved -monitor electrolytes and replete as needed Code(s): E87.5 - HYPERKALEMIA (5) Weakness Assessment/Plan: -PT -fall precaution Code(s): R53.1 - WEAKNESS (6) ELIZABETH (acute kidney injury) Assessment/Plan: -BUN/Cr 29.9/1.3 -Renal on board Code(s): N17.9 - ACUTE KIDNEY FAILURE, UNSPECIFIED (7) Diabetes Assessment/Plan: -Endocrinology on board -Levemir BID -ISS -HgA1c 13.0% -Anion gap 18~9 -Beta-Hydrox 88.0 -dietary consult -diabetic diet -patient is extremely non-compliant with medication regimen Code(s): E11.9 - TYPE 2 DIABETES MELLITUS WITHOUT COMPLICATIONS Qualifiers: Diabetes mellitus type: type 2 (8) Fall Assessment/Plan: -PT -fall risk precaution Code(s): W19.XXXA - UNSPECIFIED FALL, INITIAL ENCOUNTER (9) Depression Assessment/Plan: -Effexor -Psych consult Code(s): F32.9 - MAJOR DEPRESSIVE DISORDER, SINGLE EPISODE, UNSPECIFIED Assessment/Plan see problem list dvt ppx when switched to PO antibiotics begin discharge planning, will need SNF placement when discharged due to non-compliance with DM and needing aggressive wound care
--- NOTE | 2019-02-01 11:19 | PN ---
Progress Note (short form) - Note Progress Note: PULMONARY c/o leg pain, does not want debridement because of anesthesia concerns. Vital Signs Period Temp Pulse Resp BP Sys/Boothe Pulse Ox Last 24 Hr 97.6 F-99.5 F 77-106 19-20 93-113/48-64 Gen: NAD at rest Heart: RRR Lung: decreased breath sounds at the bases Abd: soft, nontender Ext: RLE edema CBC, BMP 01/28/19 05:55 01/31/19 10:25 Active Medications Acetaminophen (Tylenol -) 650 mg PO Q6H PRN PRN Reason: PAIN OR FEVER Last Admin: 02/01/19 05:08 Dose: 650 mg Albuterol Sulfate (Ventolin Hfa Inhaler -) 2 puff IH RQID [facility] Last Admin: 02/01/19 07:57 Dose: 2 puff Budesonide/Formoterol Fumarate (Symbicort 80/4.5mcg -) 1 puff IH BID [facility] Last Admin: 02/01/19 09:43 Dose: 1 puff Gabapentin (Neurontin -) 300 mg PO TID [facility] Last Admin: 02/01/19 05:07 Dose: 300 mg Heparin Sodium (Porcine) (Heparin -) 5,000 unit SQ TID [facility] Last Admin: 02/01/19 05:16 Dose: 5,000 unit Vancomycin HCl (Vancomycin (Pre-Docked)) 1,000 mg in 250 mls @ 200 mls/hr IVPB Q24H [facility]; Protocol Last Admin: 01/31/19 15:57 Dose: 200 mls/hr Piperacillin Sod/Tazobactam (Sod 3.375 gm/ Dextrose) 50 mls @ 100 mls/hr IVPB Q8H-IV [facility]; Protocol Last Admin: 02/01/19 11:02 Dose: 100 mls/hr Insulin Aspart (Novolog Vial Sliding Scale -) 1 vial SQ ACHS [facility]; Protocol Last Admin: 02/01/19 06:42 Dose: 9 units Insulin Detemir (Levemir Vial) 35 units SQ AM [facility] Insulin Detemir (Levemir Vial) 30 units SQ HS [facility] Lactic Acid (Lac-Hydrin 12) 1 applic TP BID [facility] Last Admin: 02/01/19 09:45 Dose: 1 applic Oxycodone HCl (Roxicodone -) 10 mg PO Q6H PRN PRN Reason: PAIN LEVEL 6-10 Last Admin: 02/01/19 05:16 Dose: 10 mg Quetiapine Fumarate (Seroquel -) 200 mg PO HS [facility] Last Admin: 01/31/19 21:18 Dose: 200 mg Triamcinolone Acetonide (Aristocort 0.5% Cream -) 1 applic TP BID [facility] Last Admin: 02/01/19 09:45 Dose: 1 applic Venlafaxine HCl (Effexor Xr -) 150 mg PO DAILY@0800 [facility] Last Admin: 02/01/19 07:57 Dose: 150 mg A/P Diabetic Ketoacidosis resolved COPD Acute Kidney Injury improving Cellulitis HTN - continue antibiotics - wound care - inhaled bronchodilators - O2 as needed - rehab/PT - outpt PFTs, CT chest - DVT prophylaxis
[2019-02-01] MEDS ORDERED: PT OWN MED DRAWER 7, Y5N ONE (11:25)
[2019-02-01] MEDS ORDERED: INSULIN (NOVOLOG) ASPART 100 UNITS/ML 10ML VIAL ONE (11:34)
--- NOTE | 2019-02-01 11:44 | CON.PSY ---
Psychiatry Consult Chief Complaint: 68 Alexa old female with a history of Schizo affecrive Disorder and being treated at [facility] seen for Psych eval. Patient is able to comrehend and give good historyu. reports she had been SEroquel 200mf po tid for many years. Symptoms: reports: Racing Thoughts, Anxiety, Restlessness - Previous Psychiatric Treatment Outpatient: Less than 6 mos ago Inpatient: Within the last 12 months, One prior admission - Previous Substance Abuse Treatment Outpatient: None Inpatient: None - Reason for Previous Treatment Reason for Previous Treatment: Psychotic Episode - Current Medications Current Medications: Active Medications Acetaminophen (Tylenol -) 650 mg PO Q6H PRN PRN Reason: PAIN OR FEVER Last Admin: 02/01/19 11:27 Dose: 650 mg Albuterol Sulfate (Ventolin Hfa Inhaler -) 2 puff IH RQID [facility] Last Admin: 02/01/19 07:57 Dose: 2 puff Budesonide/Formoterol Fumarate (Symbicort 80/4.5mcg -) 1 puff IH BID [facility] Last Admin: 02/01/19 09:43 Dose: 1 puff Gabapentin (Neurontin -) 300 mg PO TID [facility] Last Admin: 02/01/19 05:07 Dose: 300 mg Heparin Sodium (Porcine) (Heparin -) 5,000 unit SQ TID [facility] Last Admin: 02/01/19 05:16 Dose: 5,000 unit Vancomycin HCl (Vancomycin (Pre-Docked)) 1,000 mg in 250 mls @ 200 mls/hr IVPB Q24H [facility]; Protocol Last Admin: 01/31/19 15:57 Dose: 200 mls/hr Piperacillin Sod/Tazobactam (Sod 3.375 gm/ Dextrose) 50 mls @ 100 mls/hr IVPB Q8H-IV [facility]; Protocol Last Admin: 02/01/19 11:02 Dose: 100 mls/hr Insulin Aspart (Novolog Vial Sliding Scale -) 1 vial SQ ACHS [facility]; Protocol Last Admin: 02/01/19 11:34 Dose: 7 units Insulin Detemir (Levemir Vial) 35 units SQ AM [facility] Insulin Detemir (Levemir Vial) 30 units SQ HS [facility] Lactic Acid (Lac-Hydrin 12) 1 applic TP BID [facility] Last Admin: 02/01/19 09:45 Dose: 1 applic Oxycodone HCl (Roxicodone -) 10 mg PO Q6H PRN PRN Reason: PAIN LEVEL 6-10 Last Admin: 02/01/19 11:26 Dose: 10 mg Triamcinolone Acetonide (Aristocort 0.5% Cream -) 1 applic TP BID [facility] Last Admin: 02/01/19 09:45 Dose: 1 applic Venlafaxine HCl (Effexor Xr -) 150 mg PO DAILY@0800 [facility] Last Admin: 02/01/19 07:57 Dose: 150 mg - Allergies Allergies: Allergies Allergy/AdvReac Type Severity Reaction Status Date / Time No Known Allergies Allergy Verified 01/26/19 17:14 - Current Living Status Usual Living Arrangement: Alone - Current Mental Status Evaluation Appearance: Disheveled Attitude: Cooperative - Affect Affect: Expansive Appropriateness: Appropriate to Content - Mood Mood: Angry - Speech/Language Expressive: Coherent - Psychomotor Activity Psychomotor Activity: Hyperactive - Thought Process Thought Process: Intact - Thought Content Hallucinations: Absent Delusions: Absent - Self Perception Self Perception: No Impairment - Cognition Attention: Alert Orientation: Time Memory, Immediate Recall: Intact Memory, Short Term: 3/3 Memory, Remote with Promptin/3 - Concentration Serial Sevens Intact: No Simple Calculations Intact: Yes - Abstraction Proverb Interpretation: Intact Judgement: Minimally Impaired - Insight Insight: Intact - Impulse Control Impulse Control: Minimally Impaired - Suicidal Ideation Suicidal Ideation: No - Homicidal Ideation Homicidal Ideation: No Problem List - Problems (1) Schizoaffective disorder, chronic condition Code(s): F25.9 - SCHIZOAFFECTIVE DISORDER, UNSPECIFIED Assessment/Plan 1) increase Seroquel 200mg po tid. 2) discharge when medically clear, follow up at [facility].
[2019-02-01 11:56] LABS: HEMATOCRIT 28.3 % (32.4-45.2); HEMOGLOBIN 9.3 GM/dL (10.7-15.3); MCH 28.5 pg (25.7-33.7); MCHC 32.9 g/dl (32.0-36.0); MEAN CELL VOLUME 86.8 fl (80-96); MEAN PLT VOLUME 8.4 fl (7.5-11.1); PLATELET COUNT 174 K/MM3 (134-434); RBC 3.26 M/mm3 (3.60-5.2); WHITE BLOOD COUNT 10.4 K/mm3 (4.0-10.0)
[2019-02-01 11:59] LABS: BLOOD UREA NITROGEN 28.5 mg/dL (7-18); CALCIUM 8.3 mg/dL (8.5-10.1); CREATININE 1.3 mg/dL (0.55-1.3); POTASSIUM 3.7 mmol/L (3.5-5.1)
--- NOTE | 2019-02-01 13:14 | CONSULT ---
Consult Consult Specialty:: Pain Management Reason for Consultation:: Rt leg pain - History of Present Illness Chief Complaint: Rt leg pain and difficulty in walking History of Present Illness: 68 yr old female with RT leg pain s/p fall and injury and wound . Pain 9.5/10 and difficulty in walking. She is taking Oxycodone 10 mg q6 PRN which is not helping. She wants to switch. Morphine was helping her - History Source History Provided By: Patient - Past Medical History Cardio/Vascular: Yes: HTN Pulmonary: Yes: COPD (?) Renal/: Yes: Renal Inusuff Psych: Yes: Anxiety, Depression Musculoskeletal: Yes: Chronic low back pain Endocrine: Yes: Diabetes Mellitus - Past Surgical History Past Surgical History: Yes: Appendectomy - Alcohol/Substance Use Hx Alcohol Use: No History of Substance Use: reports: None - Smoking History Smoking history: Current every day smoker Have you smoked in the past 12 months: Yes Aproximately how many cigarettes per day: 5 If you are a former smoker, when did you quit?: 1 month ago - Social History Usual Living Arrangement: Alone ADL: Independent History of Recent Travel: No Home Medications - Allergies Allergies/Adverse Reactions: Allergies Allergy/AdvReac Type Severity Reaction Status Date / Time No Known Allergies Allergy Verified 01/26/19 17:14 - Home Medications Home Medications: Ambulatory Orders Gabapentin [Neurontin -] 300 mg PO Q8H PRN 03/28/17 Metformin HCl [Glucophage] 1,000 mg PO BID #60 tablet 03/28/17 Venlafaxine HCl ER [Effexor Xr -] 150 mg PO DAILY 03/28/17 Acetaminophen [Tylenol .Regular Strength -] 650 mg PO Q6H PRN tablet 09/06/18 Bacitracin - [Bacitracin Topical Ointment -] 1 applic TP DAILY #90 applic Insulin (Levemir) [Levemir Vial] 30 units SQ AM units 09/06/18 Insulin Sliding Scale [Novolog Vial Sliding Scale -] 1 vial SQ ACHS units 09/06 Nystatin Cream [Mycostatin Cream -] 1 applic TP BID #90 applic 09/06/18 Nystatin Powder [Nystop Powder -] 1 applic TP BID applic 09/06/18 Nystatin/Triamcinolone Top Cr [Mycolog II -] 2 applic TP BID applic 09/06/18 Ondansetron [Zofran *Odt*] 4 mg SL Q6H PRN tab.rapdis 09/06/18 Quetiapine Fumarate [Seroquel -] 200 mg PO HS #30 tab 09/06/18 Sitagliptin Phosphate [Januvia] 50 mg PO BID #60 tablet 09/06/18 metFORMIN HCL [Metformin HCl] 500 mg PO BID #60 tablet 09/06/18 Albuterol Sulfate [Albuterol Sulfate Hfa] 8.5 gm IH QID #3 hfa.aer.ad 09/07/18 Budesonide/Formeterol Fumarate [SYMBICORT 80/4.5mcg -] 1 inh PO BID #1 cannister 09/07/18 Tiotropium [place] [Spiriva Respimat] 4 gm IH DAILY #1 mist.inhal 09/07/18 Acetaminophen [Tylenol .Regular Strength -] 650 mg PO Q6H PRN tablet 09/12/18 Glimepiride [Amaryl -] 4 mg PO DAILY@0700 #30 tablet 09/12/18 Clindamycin [Cleocin -] 300 mg PO TID #15 capsule 09/27/18 Fludrocortisone Acetate [Florinef -] 0.1 mg PO BID #60 tablet 09/27/18 Glimepiride [Amaryl -] 4 mg PO BIDAC #60 tablet 09/27/18 Lactobacillus Acidophilus [Acidophilus] 1 each PO DAILY #30 capsule 09/27/18 Mupirocin Cream [Bactroban 2% Cream -] 1 applic TP BID #60 tube 09/27/18 Quetiapine Fumarate [Seroquel -] 200 mg PO TID #90 tablet 09/27/18 Sitagliptin Phosphate [Januvia -] 50 mg PO DAILY@0700 #30 tablet 09/27/18 Review of Systems - Review of Systems Constitutional: reports: No Symptoms Eyes: reports: Photophobia HENT: reports: No Symptoms Neck: reports: No Symptoms Cardiovascular: reports: No Symptoms Respiratory: reports: No Symptoms Gastrointestinal: reports: No Symptoms Genitourinary: reports: No Symptoms Musculoskeletal: reports: Other (RT LEG PAIN S/P WOUND) Integumentary: reports: Wound (Rt leg dressing +) Neurological: reports: No Symptoms Physical Exam Vital Signs: Vital Signs Temperature 97.8 F 02/01/19 10:00 Pulse Rate 106 H 02/01/19 10:00 Respiratory Rate 20 02/01/19 10:00 Blood Pressure 110/64 02/01/19 10:00 O2 Sat by Pulse Oximetry (%) 100 01/31/19 09:00 Constitutional: Yes: Well Nourished Eyes: Yes: WNL HENT: Yes: WNL Neck: Yes: WNL Extremities: Yes: WNL Edema: No Wound/Incision: Yes: Other (Dressing +, Leg swollen) Neurological: Yes: WNL ...Motor Strength: WNL Labs: CBC, BMP 02/01/19 11:15 02/01/19 11:15 Current Medications Generic Name Dose Route Start Last Admin Trade Name Freq PRN Reason Stop Dose Admin Acetaminophen 650 mg 01/27/19 03:09 02/01/19 11:27 Tylenol - PO 650 mg Q6H PRN Administration PAIN OR FEVER Albuterol Sulfate 2 puff 01/27/19 20:00 02/01/19 07:57 Ventolin Hfa Inhaler - IH 2 puff RQID [facility]IE Administration Budesonide/Formoterol Fumarate 1 puff 01/27/19 10:00 02/01/19 09:43 Symbicort 80/4.5mcg - IH 1 puff BID [facility] Administration Gabapentin 300 mg 01/27/19 14:00 02/01/19 05:07 Neurontin - PO 300 mg TID [facility]IE Administration Heparin Sodium (Porcine) 5,000 unit 01/27/19 06:00 02/01/19 05:16 Heparin - SQ 5,000 unit TID [facility] Administration Vancomycin HCl 1,000 mg in 250 mls @ 200 mls/hr 01/30/19 16:45 01/31/19 15:57 Vancomycin (Pre-Docked) IVPB 200 mls/hr Q24H [facility] Administration Protocol Piperacillin Sod/Tazobactam 50 mls @ 100 mls/hr 01/30/19 18:00 02/01/19 11:02 Sod 3.375 gm/ Dextrose IVPB 100 mls/hr Q8H-IV [facility] Administration Protocol Insulin Aspart 1 vial 01/31/19 16:30 02/01/19 11:34 Novolog Vial Sliding Scale - SQ 7 units ACHS [facility] Administration Protocol Insulin Detemir 35 units 02/02/19 07:00 Levemir Vial SQ AM [facility] Insulin Detemir 30 units 02/01/19 22:00 Levemir Vial SQ HS [facility] Lactic Acid 1 applic 01/28/19 11:00 02/01/19 09:45 Lac-Hydrin 12 TP 1 applic BID [facility] Administration Oxycodone HCl 10 mg 01/28/19 22:53 02/01/19 11:26 Roxicodone - PO 10 mg Q6H PRN Administration PAIN LEVEL 6-10 Quetiapine Fumarate 200 mg 02/01/19 14:00 Seroquel - PO TID [facility] Triamcinolone Acetonide 1 applic 01/28/19 11:00 02/01/19 09:45 Aristocort 0.5% Cream - TP 1 applic BID [facility] Administration Venlafaxine HCl 150 mg 01/27/19 08:00 02/01/19 07:57 Effexor Xr - PO 150 mg DAILY@0800 [facility] Administration Assessment/Plan Discussed in detail and answered all the question. 1. continue current medications 2. D/c Oxicodone 3. MSIR 15 mg PO TID PRN 4. She will benefit with Physical therapy. 5. Please call me if pain is not well controlled.
[2019-02-01] MEDS: QUEtiapine FUMARATE 200 MG TABLET PO SCH ×2 (13:24→22:13)
--- NOTE | 2019-02-01 14:28 | PN ---
Progress Note (short form) - Note Progress Note: alert continued RLE pain ct scan no abscess seen by surgery, refusing debridement reports leg pain with ambulation Vital Signs Period Temp Pulse Resp BP Sys/Boothe Pulse Ox Last 24 Hr 97.6 F-99.5 F 77-112 19-20 93-119/48-64 cor-rrr lungs clear abd soft,nt ext +drainage from blister, surrounding erythema and tenderness present CBC, BMP 02/01/19 11:15 02/01/19 11:15 Microbiology 01/26/19 18:50 Blood - Peripheral Venous Blood Culture - Final NO GROWTH AFTER 5 DAYS INCUBATION 01/26/19 18:50 Blood - Peripheral Venous Blood Culture - Final NO GROWTH AFTER 5 DAYS INCUBATION hgbA1c 13 imp/reccd RLE cellulitis still painful- vanco/zosyn continue refused debridement continue local care and iv antibiotics diabetes out of control (noncompliance) ckd
[2019-02-01] MEDS: VANCOMYCIN 1 GRAM (PRE-DOCKED) 1,000 MG/250 ML BAG IVPB SCH (16:17)
--- NOTE | 2019-02-01 18:23 | PN ---
Progress Note, Physician History of Present Illness: Pt seen and examined at bedside. She is awake and alert. She denies fevers or chills. She is awake and appears comfortable. - Current Medication List Current Medications: Active Medications Acetaminophen (Tylenol -) 650 mg PO Q6H PRN PRN Reason: PAIN OR FEVER Last Admin: 02/01/19 11:27 Dose: 650 mg Albuterol Sulfate (Ventolin Hfa Inhaler -) 2 puff IH RQID [facility] Last Admin: 02/01/19 16:17 Dose: 2 puff Budesonide/Formoterol Fumarate (Symbicort 80/4.5mcg -) 1 puff IH BID [facility] Last Admin: 02/01/19 09:43 Dose: 1 puff Gabapentin (Neurontin -) 300 mg PO TID [facility] Last Admin: 02/01/19 13:24 Dose: 300 mg Heparin Sodium (Porcine) (Heparin -) 5,000 unit SQ TID [facility] Last Admin: 02/01/19 13:24 Dose: 5,000 unit Vancomycin HCl (Vancomycin (Pre-Docked)) 1,000 mg in 250 mls @ 200 mls/hr IVPB Q24H [facility]; Protocol Last Admin: 02/01/19 16:17 Dose: 200 mls/hr Piperacillin Sod/Tazobactam (Sod 3.375 gm/ Dextrose) 50 mls @ 100 mls/hr IVPB Q8H-IV [facility]; Protocol Last Admin: 02/01/19 11:02 Dose: 100 mls/hr Insulin Aspart (Novolog Vial Sliding Scale -) 1 vial SQ ACHS [facility]; Protocol Last Admin: 02/01/19 16:17 Dose: Not Given Insulin Detemir (Levemir Vial) 35 units SQ AM [facility] Insulin Detemir (Levemir Vial) 30 units SQ HS [facility] Lactic Acid (Lac-Hydrin 12) 1 applic TP BID [facility] Last Admin: 02/01/19 09:45 Dose: 1 applic Morphine Sulfate (Msir -) 15 mg PO Q6H PRN PRN Reason: PAIN Quetiapine Fumarate (Seroquel -) 200 mg PO TID [facility] Last Admin: 02/01/19 13:24 Dose: 200 mg Triamcinolone Acetonide (Aristocort 0.5% Cream -) 1 applic TP BID [facility] Last Admin: 02/01/19 09:45 Dose: 1 applic Venlafaxine HCl (Effexor Xr -) 150 mg PO DAILY@0800 [facility] Last Admin: 02/01/19 07:57 Dose: 150 mg - Objective Vital Signs: Vital Signs Temperature 98.9 F 02/01/19 14:03 Pulse Rate 112 H 02/01/19 14:03 Respiratory Rate 20 02/01/19 14:03 Blood Pressure 119/59 L 02/01/19 14:03 O2 Sat by Pulse Oximetry (%) 100 01/31/19 09:00 Constitutional: Yes: Calm Eyes: Yes: Conjunctiva Clear HENT: Yes: Atraumatic Neck: Yes: Supple Cardiovascular: Yes: S1, S2 Respiratory: Yes: CTA Bilaterally Gastrointestinal: Yes: Normal Bowel Sounds, Soft Genitourinary: Yes: WNL Musculoskeletal: Yes: WNL Integumentary: Yes: Erythema Wound/Incision: Yes: Dressing Dry and Intact Neurological: Yes: Oriented Psychiatric: Yes: Oriented Labs: CBC, BMP 02/01/19 11:15 02/01/19 11:15 Problem List - Problems (1) COPD (chronic obstructive pulmonary disease) Code(s): J44.9 - CHRONIC OBSTRUCTIVE PULMONARY DISEASE, UNSPECIFIED (2) Hyperkalemia Code(s): E87.5 - HYPERKALEMIA (3) ELIZABETH (acute kidney injury) Code(s): N17.9 - ACUTE KIDNEY FAILURE, UNSPECIFIED Assessment/Plan Current Medications Generic Name Dose Route Start Last Admin Trade Name Freq PRN Reason Stop Dose Admin Acetaminophen 650 mg 01/27/19 03:09 02/01/19 11:27 Tylenol - PO 650 mg Q6H PRN Administration PAIN OR FEVER Albuterol Sulfate 2 puff 01/27/19 20:00 02/01/19 16:17 Ventolin Hfa Inhaler - IH 2 puff RQID KACIE Administration Budesonide/Formoterol Fumarate 1 puff 01/27/19 10:00 02/01/19 09:43 Symbicort 80/4.5mcg - IH 1 puff BID [facility]IE Administration Gabapentin 300 mg 01/27/19 14:00 02/01/19 13:24 Neurontin - PO 300 mg TID [facility]IE Administration Heparin Sodium (Porcine) 5,000 unit 01/27/19 06:00 02/01/19 13:24 Heparin - SQ 5,000 unit TID [facility]IE Administration Vancomycin HCl 1,000 mg in 250 mls @ 200 mls/hr 01/30/19 16:45 02/01/19 16:17 Vancomycin (Pre-Docked) IVPB 200 mls/hr Q24H [facility]IE Administration Protocol Piperacillin Sod/Tazobactam 50 mls @ 100 mls/hr 01/30/19 18:00 02/01/19 11:02 Sod 3.375 gm/ Dextrose IVPB 100 mls/hr Q8H-IV [facility]IE Administration Protocol Insulin Aspart 1 vial 01/31/19 16:30 02/01/19 16:17 Novolog Vial Sliding Scale - SQ Not Given ACHS [facility] Protocol Insulin Detemir 35 units 02/02/19 07:00 Levemir Vial SQ AM [facility] Insulin Detemir 30 units 02/01/19 22:00 Levemir Vial SQ HS [facility] Lactic Acid 1 applic 01/28/19 11:00 02/01/19 09:45 Lac-Hydrin 12 TP 1 applic BID [facility]IE Administration Morphine Sulfate 15 mg 02/01/19 13:25 Msir - PO Q6H PRN PAIN Quetiapine Fumarate 200 mg 02/01/19 14:00 02/01/19 13:24 Seroquel - PO 200 mg TID [facility]ACIE Administration Triamcinolone Acetonide 1 applic 01/28/19 11:00 02/01/19 09:45 Aristocort 0.5% Cream - TP 1 applic BID [facility]IE Administration Venlafaxine HCl 150 mg 01/27/19 08:00 02/01/19 07:57 Effexor Xr - PO 150 mg DAILY@0800 [facility]IE Administration Impression 1. CKD 2. HTN 3. s/p fall 4. DM 5. ELIZABETH 6. hyperkalemia Plan - renal function stable - avoid nsaids - wound care - monitor blood sugar
[2019-02-01] MEDS: morphine SULFATE IMMEDIATE RELEASE 30 MG TAB PO PRN (22:33)
[2019-02-02] MEDS ORDERED: DEXTROSE 5%-WATER - 50 ML IVPB ONE ×3 (00:53→17:11)
[2019-02-02] MEDS ORDERED: PIPERACILLIN/TAZOBACTAM 3.375 GM VIAL IVPB ONE ×3 (00:53→17:11)
[2019-02-02] MEDS: PIPERACILLIN/TAZOB 3.375 GM 3.375 GM in DEXTROSE 5%-WATER - 50 ML IVPB SCH ×3 (02:40→18:38)
[2019-02-02] MEDS: ACETAMINOPHEN 325 MG TABLET (FP) PO PRN ×2 (05:52→16:16)
[2019-02-02] MEDS: QUEtiapine FUMARATE 200 MG TABLET PO SCH ×3 (05:52→21:19)
[2019-02-02] MEDS: HEPARIN NA (PORCINE) 5,000 UNITS/ML 1ML VIAL SQ SCH ×3 (05:53→21:25)
[2019-02-02] MEDS: morphine SULFATE IMMEDIATE RELEASE 30 MG TAB PO PRN ×3 (06:21→19:50)
[2019-02-02] MEDS: GABAPENTIN 300 MG CAPSULE (FP) PO SCH ×3 (06:21→21:19)
[2019-02-02] MEDS: INSULIN SLIDING SCALE (NOVOLOG) 1 VIAL SQ SCH ×4 (06:24→21:20)
[2019-02-02] MEDS: INSULIN (LEVEMIR) 100 UNITS/ML UNITS SQ SCH ×2 (06:24→21:21)
[2019-02-02] MEDS: VENLAFAXINE HCL 75 MG E.R. CAPSULES (FP) PO SCH (07:42)
[2019-02-02] MEDS: ALBUTEROL SO4 8 GM HFA INHALER IH SCH ×4 (07:45→19:52)
--- NOTE | 2019-02-02 08:00 | PN ---
Progress Note, Physician - Current Medication List Current Medications: Active Medications Acetaminophen (Tylenol -) 650 mg PO Q6H PRN PRN Reason: PAIN OR FEVER Last Admin: 02/02/19 05:52 Dose: 650 mg Albuterol Sulfate (Ventolin Hfa Inhaler -) 2 puff IH RQID [facility] Last Admin: 02/02/19 07:45 Dose: 2 puff Budesonide/Formoterol Fumarate (Symbicort 80/4.5mcg -) 1 puff IH BID [facility] Last Admin: 02/01/19 22:34 Dose: 1 puff Gabapentin (Neurontin -) 300 mg PO TID [facility] Last Admin: 02/02/19 06:21 Dose: 300 mg Heparin Sodium (Porcine) (Heparin -) 5,000 unit SQ TID [facility] Last Admin: 02/02/19 05:53 Dose: 5,000 unit Vancomycin HCl (Vancomycin (Pre-Docked)) 1,000 mg in 250 mls @ 200 mls/hr IVPB Q24H [facility]; Protocol Last Admin: 02/01/19 16:17 Dose: 200 mls/hr Piperacillin Sod/Tazobactam (Sod 3.375 gm/ Dextrose) 50 mls @ 100 mls/hr IVPB Q8H-IV [facility]; Protocol Last Admin: 02/02/19 02:40 Dose: 100 mls/hr Insulin Aspart (Novolog Vial Sliding Scale -) 1 vial SQ ACHS [facility]; Protocol Last Admin: 02/02/19 06:24 Dose: 6 units Insulin Detemir (Levemir Vial) 35 units SQ AM [facility] Last Admin: 02/02/19 06:24 Dose: 35 units Insulin Detemir (Levemir Vial) 30 units SQ HS [facility] Last Admin: 02/01/19 22:18 Dose: 30 units Lactic Acid (Lac-Hydrin 12) 1 applic TP BID [facility] Last Admin: 02/01/19 22:23 Dose: 1 applic Morphine Sulfate (Msir -) 15 mg PO Q6H PRN PRN Reason: PAIN Last Admin: 02/02/19 06:21 Dose: 15 mg Quetiapine Fumarate (Seroquel -) 200 mg PO TID [facility] Last Admin: 02/02/19 05:52 Dose: 200 mg Triamcinolone Acetonide (Aristocort 0.5% Cream -) 1 applic TP BID [facility] Last Admin: 02/01/19 22:24 Dose: 1 applic Venlafaxine HCl (Effexor Xr -) 150 mg PO DAILY@0800 [facility] Last Admin: 02/02/19 07:42 Dose: 150 mg - Objective Vital Signs: Vital Signs Temperature 101.3 F H 02/02/19 06:00 Pulse Rate 95 H 02/02/19 06:00 Respiratory Rate 20 02/02/19 06:00 Blood Pressure 111/58 L 02/02/19 06:00 O2 Sat by Pulse Oximetry (%) 100 01/31/19 09:00 Cardiovascular: Yes: S1, S2 Respiratory: Yes: Regular, CTA Bilaterally Gastrointestinal: Yes: Normal Bowel Sounds, Soft Wound/Incision: Yes: Dressing Dry and Intact (Refuses for me to remove dressing) Problem List - Problems (1) DKA, type 2, not at goal Code(s): E11.10 - TYPE 2 DIABETES MELLITUS WITH KETOACIDOSIS WITHOUT COMA (2) Cellulitis Code(s): L03.90 - CELLULITIS, UNSPECIFIED (3) ELIZABETH (acute kidney injury) Code(s): N17.9 - ACUTE KIDNEY FAILURE, UNSPECIFIED (4) Electrolyte abnormality Code(s): E87.8 - OTH DISORDERS OF ELECTROLYTE AND FLUID BALANCE, NEC (5) COPD (chronic obstructive pulmonary disease) Code(s): J44.9 - CHRONIC OBSTRUCTIVE PULMONARY DISEASE, UNSPECIFIED (6) Edema Code(s): R60.9 - EDEMA, UNSPECIFIED (7) Dermatitis Code(s): L30.9 - DERMATITIS, UNSPECIFIED Assessment/Plan - Problems (1) COPD (chronic obstructive pulmonary disease) Assessment/Plan: -Pulm on board -keep SpO2 >90% -O2 via NC -Symbicort -Bronchodilators Code(s): J44.9 - CHRONIC OBSTRUCTIVE PULMONARY DISEASE, UNSPECIFIED (2) Cellulitis Assessment/Plan: -ID on board -Leukocytosis -afebrile -Vancomycin, Zosyn -BC neg -daily dressing changes -Vascular US RLE shows no DVT -pain control Code(s): L03.90 - CELLULITIS, UNSPECIFIED (3) DKA (diabetic ketoacidoses) Assessment/Plan: -Endocrinology on board -Levemir BID -ISS -HgA1c 13.0% Code(s): E11.10 - TYPE 2 DIABETES MELLITUS WITH KETOACIDOSIS WITHOUT COMA Qualifiers: Diabetes mellitus type: type 2 Diabetes mellitus complication detail: without coma Qualified Code(s): E11.10 - Type 2 diabetes mellitus with ketoacidosis without coma (4) Hyperkalemia Assessment/Plan: -K 3.8 -resolved -monitor electrolytes and replete as needed Code(s): E87.5 - HYPERKALEMIA (5) Weakness Assessment/Plan: -PT -fall precaution Code(s): R53.1 - WEAKNESS (6) ELIZABETH (acute kidney injury) Assessment/Plan: -BUN/Cr 29.9/1.3 Laboratory Tests 02/02/19 07:15 BUN 25.2 H Creatinine 1.3 -Renal on board Code(s): N17.9 - ACUTE KIDNEY FAILURE, UNSPECIFIED (7) Diabetes Assessment/Plan: -Endocrinology on board -Levemir BID -ISS -HgA1c 13.0% -Anion gap 18~9 -Beta-Hydrox 88.0 -dietary consult -diabetic diet -patient is extremely non-compliant with medication regimen Code(s): E11.9 - TYPE 2 DIABETES MELLITUS WITHOUT COMPLICATIONS Qualifiers: Diabetes mellitus type: type 2 (8) Fall Assessment/Plan: -PT -fall risk precaution Code(s): W19.XXXA - UNSPECIFIED FALL, INITIAL ENCOUNTER (9) Depression Assessment/Plan: -Effexor -Psych consult Code(s): F32.9 - MAJOR DEPRESSIVE DISORDER, SINGLE EPISODE, UNSPECIFIED
[2019-02-02 08:29] LABS: HEMATOCRIT 28.9 % (32.4-45.2); HEMOGLOBIN 9.4 GM/dL (10.7-15.3); MCH 28.4 pg (25.7-33.7); MCHC 32.7 g/dl (32.0-36.0); MEAN CELL VOLUME 86.8 fl (80-96); MEAN PLT VOLUME 8.4 fl (7.5-11.1); PLATELET COUNT 188 K/MM3 (134-434); RBC 3.32 M/mm3 (3.60-5.2); RDW 13.2 % (11.6-15.6); WHITE BLOOD COUNT 10.3 K/mm3 (4.0-10.0)
[2019-02-02 08:35] LABS: BILIRUBIN,TOTAL 0.5 mg/dL (0.2-1); BLOOD UREA NITROGEN 25.2 mg/dL (7-18); CALCIUM 8.4 mg/dL (8.5-10.1); CREATININE 1.3 mg/dL (0.55-1.3); POTASSIUM 3.9 mmol/L (3.5-5.1); TOT PROT 6.3 g/dl (6.4-8.2)
[2019-02-02] MEDS ORDERED: PT OWN MED DRAWER 7, Y5N ONE (09:26)
[2019-02-02] MEDS: TRIAMCINOLONE ACET 0.5% CREAM 15 GM TUBE TP SCH ×2 (09:34→21:24)
[2019-02-02] MEDS: AMMONIUM LACTATE 12% LOTION 225 GM BOTTLE TP SCH ×2 (09:34→21:24)
[2019-02-02] MEDS: BUDESONIDE/FORMETEROL FUMARATE 80/4.5 mcg INHALER IH SCH ×2 (09:35→22:00)
--- NOTE | 2019-02-02 15:31 | PN ---
Progress Note (short form) - Note Progress Note: PULMONARY VSS/AFEBRILE Gen: NAD at rest Heart: RRR Lung: decreased breath sounds at the bases Abd: soft, nontender Ext: RLE edema LABS/MEDS/NOTES/IMAGES REVIEWED A/P Diabetic Ketoacidosis resolved COPD Acute Kidney Injury improving Cellulitis HTN - continue antibiotics - wound care - inhaled bronchodilators - O2 as needed - rehab/PT - outpt PFTs, CT chest - DVT prophylaxis Leonard CANTU MD
[2019-02-02] MEDS: VANCOMYCIN 1 GRAM (PRE-DOCKED) 1,000 MG/250 ML BAG IVPB SCH (16:31)
--- NOTE | 2019-02-02 17:25 | PN ---
Progress Note, Physician Chief Complaint: PT seen and examined at bedside. She is awake and appears comfortable. - Current Medication List Current Medications: Active Medications Acetaminophen (Tylenol -) 650 mg PO Q6H PRN PRN Reason: PAIN OR FEVER Last Admin: 02/02/19 16:16 Dose: 650 mg Albuterol Sulfate (Ventolin Hfa Inhaler -) 2 puff IH RQID [facility] Last Admin: 02/02/19 16:16 Dose: 2 puff Budesonide/Formoterol Fumarate (Symbicort 80/4.5mcg -) 1 puff IH BID [facility] Last Admin: 02/02/19 09:35 Dose: 1 puff Gabapentin (Neurontin -) 300 mg PO TID [facility] Last Admin: 02/02/19 13:13 Dose: 300 mg Heparin Sodium (Porcine) (Heparin -) 5,000 unit SQ TID [facility] Last Admin: 02/02/19 13:13 Dose: 5,000 unit Vancomycin HCl (Vancomycin (Pre-Docked)) 1,000 mg in 250 mls @ 200 mls/hr IVPB Q24H [facility]; Protocol Last Admin: 02/02/19 16:31 Dose: 200 mls/hr Piperacillin Sod/Tazobactam (Sod 3.375 gm/ Dextrose) 50 mls @ 100 mls/hr IVPB Q8H-IV [facility]; Protocol Last Admin: 02/02/19 09:35 Dose: 100 mls/hr Insulin Aspart (Novolog Vial Sliding Scale -) 1 vial SQ ACHS [facility]; Protocol Last Admin: 02/02/19 16:29 Dose: Not Given Insulin Detemir (Levemir Vial) 35 units SQ AM [facility] Last Admin: 02/02/19 06:24 Dose: 35 units Insulin Detemir (Levemir Vial) 30 units SQ HS [facility] Last Admin: 02/01/19 22:18 Dose: 30 units Lactic Acid (Lac-Hydrin 12) 1 applic TP BID [facility] Last Admin: 02/02/19 09:34 Dose: 1 applic Morphine Sulfate (Msir -) 15 mg PO Q6H PRN PRN Reason: PAIN Last Admin: 02/02/19 13:13 Dose: 15 mg Quetiapine Fumarate (Seroquel -) 200 mg PO TID [facility] Last Admin: 02/02/19 13:13 Dose: 200 mg Triamcinolone Acetonide (Aristocort 0.5% Cream -) 1 applic TP BID [facility] Last Admin: 02/02/19 09:34 Dose: 1 applic Venlafaxine HCl (Effexor Xr -) 150 mg PO DAILY@0800 [facility] Last Admin: 02/02/19 07:42 Dose: 150 mg - Objective Vital Signs: Vital Signs Temperature 99.2 F 02/02/19 10:00 Pulse Rate 92 H 02/02/19 10:00 Respiratory Rate 18 02/02/19 10:00 Blood Pressure 118/66 02/02/19 10:00 O2 Sat by Pulse Oximetry (%) 100 01/31/19 09:00 Constitutional: Yes: Calm Eyes: Yes: Conjunctiva Clear HENT: Yes: Atraumatic Cardiovascular: Yes: S1, S2 Respiratory: Yes: CTA Bilaterally Gastrointestinal: Yes: Soft Musculoskeletal: Yes: WNL Edema: No Wound/Incision: Yes: Dressing Dry and Intact Labs: CBC, BMP 02/02/19 07:15 02/02/19 07:15 Problem List - Problems (1) COPD (chronic obstructive pulmonary disease) Code(s): J44.9 - CHRONIC OBSTRUCTIVE PULMONARY DISEASE, UNSPECIFIED (2) Hyperkalemia Code(s): E87.5 - HYPERKALEMIA (3) ELIZABETH (acute kidney injury) Code(s): N17.9 - ACUTE KIDNEY FAILURE, UNSPECIFIED Assessment/Plan Current Medications Generic Name Dose Route Start Last Admin Trade Name Freq PRN Reason Stop Dose Admin Acetaminophen 650 mg 01/27/19 03:09 02/02/19 16:16 Tylenol - PO 650 mg Q6H PRN Administration PAIN OR FEVER Albuterol Sulfate 2 puff 01/27/19 20:00 02/02/19 16:16 Ventolin Hfa Inhaler - IH 2 puff RQID [facility]IE Administration Budesonide/Formoterol Fumarate 1 puff 01/27/19 10:00 02/02/19 09:35 Symbicort 80/4.5mcg - IH 1 puff BID [facility] Administration Gabapentin 300 mg 01/27/19 14:00 02/02/19 13:13 Neurontin - PO 300 mg TID [facility]IE Administration Heparin Sodium (Porcine) 5,000 unit 01/27/19 06:00 02/02/19 13:13 Heparin - SQ 5,000 unit TID [facility] Administration Vancomycin HCl 1,000 mg in 250 mls @ 200 mls/hr 01/30/19 16:45 02/02/19 16:31 Vancomycin (Pre-Docked) IVPB 200 mls/hr Q24H [facility] Administration Protocol Piperacillin Sod/Tazobactam 50 mls @ 100 mls/hr 01/30/19 18:00 02/02/19 09:35 Sod 3.375 gm/ Dextrose IVPB 100 mls/hr Q8H-IV [facility] Administration Protocol Insulin Aspart 1 vial 01/31/19 16:30 02/02/19 16:29 Novolog Vial Sliding Scale - SQ Not Given ACHS [facility] Protocol Insulin Detemir 35 units 02/02/19 07:00 02/02/19 06:24 Levemir Vial SQ 35 units AM [facility] Administration Insulin Detemir 30 units 02/01/19 22:00 02/01/19 22:18 Levemir Vial SQ 30 units HS [facility] Administration Lactic Acid 1 applic 01/28/19 11:00 02/02/19 09:34 Lac-Hydrin 12 TP 1 applic BID [facility] Administration Morphine Sulfate 15 mg 02/01/19 13:25 02/02/19 13:13 Msir - PO 15 mg Q6H PRN Administration PAIN Quetiapine Fumarate 200 mg 02/01/19 14:00 02/02/19 13:13 Seroquel - PO 200 mg TID [facility] Administration Triamcinolone Acetonide 1 applic 01/28/19 11:00 02/02/19 09:34 Aristocort 0.5% Cream - TP 1 applic BID [facility] Administration Venlafaxine HCl 150 mg 01/27/19 08:00 02/02/19 07:42 Effexor Xr - PO 150 mg DAILY@0800 [facility] Administration Impression 1. CKD 2. HTN 3. s/p fall 4. DM 5. ELIZABETH 6. 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
[2019-02-02] MEDS ORDERED: INSULIN (NOVOLOG) ASPART 100 UNITS/ML 10ML VIAL ONE (21:00)
[2019-02-03] MEDS ORDERED: PIPERACILLIN/TAZOBACTAM 3.375 GM VIAL IVPB ONE ×3 (00:20→16:19)
[2019-02-03] MEDS ORDERED: DEXTROSE 5%-WATER - 50 ML IVPB ONE ×3 (00:20→16:19)
[2019-02-03] MEDS: morphine SULFATE IMMEDIATE RELEASE 30 MG TAB PO PRN ×2 (02:10→16:51)
[2019-02-03] MEDS: PIPERACILLIN/TAZOB 3.375 GM 3.375 GM in DEXTROSE 5%-WATER - 50 ML IVPB SCH ×3 (04:00→16:59)
[2019-02-03] MEDS: GABAPENTIN 300 MG CAPSULE (FP) PO SCH ×3 (05:59→21:26)
[2019-02-03] MEDS: ACETAMINOPHEN 325 MG TABLET (FP) PO PRN (06:00)
[2019-02-03] MEDS: INSULIN SLIDING SCALE (NOVOLOG) 1 VIAL SQ SCH ×5 (06:01→21:58)
[2019-02-03] MEDS: QUEtiapine FUMARATE 200 MG TABLET PO SCH ×3 (06:03→21:26)
[2019-02-03] MEDS: INSULIN (LEVEMIR) 100 UNITS/ML UNITS SQ SCH ×2 (06:33→21:26)
[2019-02-03] MEDS: VENLAFAXINE HCL 75 MG E.R. CAPSULES (FP) PO SCH (08:12)
[2019-02-03] MEDS: TRIAMCINOLONE ACET 0.5% CREAM 15 GM TUBE TP SCH ×2 (09:05→21:26)
[2019-02-03] MEDS: BUDESONIDE/FORMETEROL FUMARATE 80/4.5 mcg INHALER IH SCH ×2 (09:05→21:26)
[2019-02-03] MEDS: AMMONIUM LACTATE 12% LOTION 225 GM BOTTLE TP SCH ×2 (09:05→21:26)
--- NOTE | 2019-02-03 10:51 | PN ---
Progress Note, Physician Chief Complaint: DM ELIZABETH History of Present Illness: NAD Sitting at the edge of the bed - Current Medication List Current Medications: Active Medications Acetaminophen (Tylenol -) 650 mg PO Q6H PRN PRN Reason: PAIN OR FEVER Last Admin: 02/03/19 06:00 Dose: 650 mg Albuterol Sulfate (Ventolin Hfa Inhaler -) 2 puff IH RQID [facility] Last Admin: 02/02/19 19:52 Dose: 2 puff Budesonide/Formoterol Fumarate (Symbicort 80/4.5mcg -) 1 puff IH BID [facility] Last Admin: 02/03/19 09:05 Dose: 1 puff Gabapentin (Neurontin -) 300 mg PO TID [facility] Last Admin: 02/03/19 05:59 Dose: 300 mg Vancomycin HCl (Vancomycin (Pre-Docked)) 1,000 mg in 250 mls @ 200 mls/hr IVPB Q24H [facility]; Protocol Last Admin: 02/02/19 16:31 Dose: 200 mls/hr Piperacillin Sod/Tazobactam (Sod 3.375 gm/ Dextrose) 50 mls @ 100 mls/hr IVPB Q8H-IV [facility]; Protocol Last Admin: 02/03/19 08:59 Dose: 100 mls/hr Insulin Aspart (Novolog Vial Sliding Scale -) 1 vial SQ ACHS [facility]; Protocol Last Admin: 02/03/19 06:01 Dose: Not Given Insulin Detemir (Levemir Vial) 35 units SQ AM [facility] Last Admin: 02/03/19 06:33 Dose: 35 units Insulin Detemir (Levemir Vial) 30 units SQ HS [facility] Last Admin: 02/02/19 21:21 Dose: 30 units Lactic Acid (Lac-Hydrin 12) 1 applic TP BID [facility] Last Admin: 02/03/19 09:05 Dose: 1 applic Morphine Sulfate (Msir -) 15 mg PO Q6H PRN PRN Reason: PAIN Last Admin: 02/03/19 02:10 Dose: 15 mg Quetiapine Fumarate (Seroquel -) 200 mg PO TID [facility] Last Admin: 02/03/19 06:03 Dose: 200 mg Triamcinolone Acetonide (Aristocort 0.5% Cream -) 1 applic TP BID [facility] Last Admin: 02/03/19 09:05 Dose: 1 applic Venlafaxine HCl (Effexor Xr -) 150 mg PO DAILY@0800 [facility] Last Admin: 02/03/19 08:12 Dose: 150 mg - Objective Vital Signs: Vital Signs Temperature 98.4 F 02/03/19 07:35 Pulse Rate 96 H 02/03/19 07:35 Respiratory Rate 18 02/03/19 07:35 Blood Pressure 124/60 02/03/19 07:35 O2 Sat by Pulse Oximetry (%) 100 01/31/19 09:00 Constitutional: Yes: Well Nourished, No Distress, Calm Cardiovascular: Yes: Regular Rate and Rhythm Gastrointestinal: Yes: Normal Bowel Sounds, Soft Genitourinary: Yes: WNL Musculoskeletal: Yes: WNL Extremities: Yes: WNL Edema: No Peripheral Pulses WNL: Yes Neurological: Yes: Alert, Oriented Psychiatric: Yes: Alert, Oriented Labs: CBC, BMP 02/02/19 07:15 02/02/19 07:15 Assessment/Plan (1) COPD (chronic obstructive pulmonary disease) Assessment/Plan: -Pulm on board -keep SpO2 >90% -O2 via NC -Symbicort -Bronchodilators Code(s): J44.9 - CHRONIC OBSTRUCTIVE PULMONARY DISEASE, UNSPECIFIED (2) Cellulitis Assessment/Plan: -ID on board -Leukocytosis -afebrile -Vancomycin, Zosyn -BC neg -daily dressing changes -Vascular US RLE shows no DVT -pain control Code(s): L03.90 - CELLULITIS, UNSPECIFIED (3) DKA (diabetic ketoacidoses) Assessment/Plan: -Endocrinology on board -Levemir BID -ISS -HgA1c 13.0% -Pt is non compliant Code(s): E11.10 - TYPE 2 DIABETES MELLITUS WITH KETOACIDOSIS WITHOUT COMA Qualifiers: Diabetes mellitus type: type 2 Diabetes mellitus complication detail: without coma Qualified Code(s): E11.10 - Type 2 diabetes mellitus with ketoacidosis without coma (4) Hyperkalemia Assessment/Plan: -resolved -monitor electrolytes and replete as needed Code(s): E87.5 - HYPERKALEMIA (5) Weakness Assessment/Plan: -PT -fall precaution Code(s): R53.1 - WEAKNESS (6) ELIZABETH (acute kidney injury) Assessment/Plan: -Renal on board Code(s): N17.9 - ACUTE KIDNEY FAILURE, UNSPECIFIED (7) Diabetes Assessment/Plan: -Endocrinology on board -Levemir BID -ISS -HgA1c 13.0% -dietary consult -diabetic diet -patient is extremely non-compliant with medication regimen Code(s): E11.9 - TYPE 2 DIABETES MELLITUS WITHOUT COMPLICATIONS Qualifiers: Diabetes mellitus type: type 2 (8) Fall Assessment/Plan: -PT -fall risk precaution Code(s): W19.XXXA - UNSPECIFIED FALL, INITIAL ENCOUNTER (9) Depression Assessment/Plan: -Effexor -Psych consult Code(s): F32.9 - MAJOR DEPRESSIVE DISORDER, SINGLE EPISODE, UNSPECIFIED
--- NOTE | 2019-02-03 14:13 | PN ---
Progress Note (short form) - Note Progress Note: PULMONARY Denies shortness of breath, cough. Vital Signs Period Temp Pulse Resp BP Sys/Boothe Pulse Ox Last 24 Hr 98.4 F-99.8 F 84-96 18-18 98-124/53-63 Gen: NAD at rest Heart: RRR Lung: decreased breath sounds at the bases Abd: soft, nontender Ext: RLE edema CBC, BMP 02/02/19 07:15 02/02/19 07:15 Active Medications Acetaminophen (Tylenol -) 650 mg PO Q6H PRN PRN Reason: PAIN OR FEVER Last Admin: 02/03/19 06:00 Dose: 650 mg Albuterol Sulfate (Ventolin Hfa Inhaler -) 2 puff IH RQID [facility] Last Admin: 02/02/19 19:52 Dose: 2 puff Budesonide/Formoterol Fumarate (Symbicort 80/4.5mcg -) 1 puff IH BID [facility] Last Admin: 02/03/19 09:05 Dose: 1 puff Gabapentin (Neurontin -) 300 mg PO TID [facility] Last Admin: 02/03/19 13:01 Dose: 300 mg Vancomycin HCl (Vancomycin (Pre-Docked)) 1,000 mg in 250 mls @ 200 mls/hr IVPB Q24H [facility]; Protocol Last Admin: 02/02/19 16:31 Dose: 200 mls/hr Piperacillin Sod/Tazobactam (Sod 3.375 gm/ Dextrose) 50 mls @ 100 mls/hr IVPB Q8H-IV [facility]; Protocol Last Admin: 02/03/19 08:59 Dose: 100 mls/hr Insulin Aspart (Novolog Vial Sliding Scale -) 1 vial SQ ACHS [facility]; Protocol Last Admin: 02/03/19 11:14 Dose: Not Given Insulin Detemir (Levemir Vial) 35 units SQ AM [facility] Last Admin: 02/03/19 06:33 Dose: 35 units Insulin Detemir (Levemir Vial) 30 units SQ HS [facility] Last Admin: 02/02/19 21:21 Dose: 30 units Lactic Acid (Lac-Hydrin 12) 1 applic TP BID [facility] Last Admin: 02/03/19 09:05 Dose: 1 applic Morphine Sulfate (Msir -) 15 mg PO Q6H PRN PRN Reason: PAIN Last Admin: 02/03/19 02:10 Dose: 15 mg Quetiapine Fumarate (Seroquel -) 200 mg PO TID [facility] Last Admin: 02/03/19 13:01 Dose: 200 mg Triamcinolone Acetonide (Aristocort 0.5% Cream -) 1 applic TP BID [facility] Last Admin: 02/03/19 09:05 Dose: 1 applic Venlafaxine HCl (Effexor Xr -) 150 mg PO DAILY@0800 [facility] Last Admin: 02/03/19 08:12 Dose: 150 mg A/P Diabetic Ketoacidosis resolved COPD Acute Kidney Injury improving Cellulitis HTN - continue antibiotics - wound care - inhaled bronchodilators - O2 as needed - rehab/PT - outpt PFTs, CT chest - DVT prophylaxis
[2019-02-03] MEDS: VANCOMYCIN 1 GRAM (PRE-DOCKED) 1,000 MG/250 ML BAG IVPB SCH (15:49)
[2019-02-03] MEDS: ALBUTEROL SO4 8 GM HFA INHALER IH SCH (20:00)
[2019-02-03] MEDS ORDERED: INSULIN (LEVEMIR) 100 UNITS/ML UNITS SQ SCH (21:36)
[2019-02-03] MEDS: DEXTROSE 5%-0.45% SALINE 1,000 ML IV SCH (21:59)
[2019-02-04] MEDS ORDERED: PIPERACILLIN/TAZOBACTAM 3.375 GM VIAL IVPB ONE ×3 (00:47→17:33)
[2019-02-04] MEDS ORDERED: DEXTROSE 5%-WATER - 50 ML IVPB ONE ×3 (00:47→17:34)
[2019-02-04] MEDS: PIPERACILLIN/TAZOB 3.375 GM 3.375 GM in DEXTROSE 5%-WATER - 50 ML IVPB SCH ×3 (01:06→17:37)
[2019-02-04] MEDS: GABAPENTIN 300 MG CAPSULE (FP) PO SCH ×3 (06:23→21:03)
[2019-02-04] MEDS: QUEtiapine FUMARATE 200 MG TABLET PO SCH ×3 (06:23→21:07)
[2019-02-04] MEDS: INSULIN SLIDING SCALE (NOVOLOG) 1 VIAL SQ SCH ×4 (06:58→21:11)
[2019-02-04] MEDS: INSULIN (LEVEMIR) 100 UNITS/ML UNITS SQ SCH (06:58)
[2019-02-04] MEDS: VENLAFAXINE HCL 75 MG E.R. CAPSULES (FP) PO SCH (08:04)
[2019-02-04] MEDS: ALBUTEROL SO4 8 GM HFA INHALER IH SCH ×4 (08:04→20:45)
[2019-02-04] MEDS: morphine SULFATE IMMEDIATE RELEASE 30 MG TAB PO PRN (09:05)
[2019-02-04] MEDS: BUDESONIDE/FORMETEROL FUMARATE 80/4.5 mcg INHALER IH SCH ×2 (09:07→21:05)
[2019-02-04] MEDS: AMMONIUM LACTATE 12% LOTION 225 GM BOTTLE TP SCH ×2 (09:07→21:02)
[2019-02-04] MEDS: TRIAMCINOLONE ACET 0.5% CREAM 15 GM TUBE TP SCH ×2 (09:07→21:02)
--- NOTE | 2019-02-04 12:31 | PN ---
Progress Note, Physician Chief Complaint: DM ELIZABETH History of Present Illness: NAD Sitting at the edge of the bed refusing meds - Current Medication List Current Medications: Active Medications Acetaminophen (Tylenol -) 650 mg PO Q6H PRN PRN Reason: PAIN OR FEVER Last Admin: 02/03/19 06:00 Dose: 650 mg Albuterol Sulfate (Ventolin Hfa Inhaler -) 2 puff IH RQID [facility] Last Admin: 02/04/19 11:43 Dose: 2 puff Budesonide/Formoterol Fumarate (Symbicort 80/4.5mcg -) 1 puff IH BID [facility] Last Admin: 02/04/19 09:07 Dose: 1 puff Gabapentin (Neurontin -) 300 mg PO TID [facility] Last Admin: 02/04/19 06:23 Dose: 300 mg Vancomycin HCl (Vancomycin (Pre-Docked)) 1,000 mg in 250 mls @ 200 mls/hr IVPB Q24H [facility]; Protocol Last Admin: 02/03/19 15:49 Dose: 200 mls/hr Piperacillin Sod/Tazobactam (Sod 3.375 gm/ Dextrose) 50 mls @ 100 mls/hr IVPB Q8H-IV [facility]; Protocol Last Admin: 02/04/19 09:04 Dose: 100 mls/hr Dextrose/Sodium Chloride (D5-1/2ns -) 1,000 mls @ 70 mls/hr IV ASDIR [facility] Last Admin: 02/03/19 21:59 Dose: 70 mls/hr Insulin Aspart (Novolog Vial Sliding Scale -) 1 vial SQ ACHS [facility]; Protocol Last Admin: 02/04/19 11:40 Dose: 3 units Insulin Detemir (Levemir Vial) 20 units SQ AM [facility] Last Admin: 02/04/19 06:58 Dose: 20 units Lactic Acid (Lac-Hydrin 12) 1 applic TP BID [facility] Last Admin: 02/04/19 09:07 Dose: 1 applic Morphine Sulfate (Msir -) 15 mg PO Q6H PRN PRN Reason: PAIN Last Admin: 02/04/19 09:05 Dose: 15 mg Quetiapine Fumarate (Seroquel -) 200 mg PO TID [facility] Last Admin: 02/04/19 06:23 Dose: 200 mg Triamcinolone Acetonide (Aristocort 0.5% Cream -) 1 applic TP BID [facility] Last Admin: 02/04/19 09:07 Dose: 1 applic Venlafaxine HCl (Effexor Xr -) 150 mg PO DAILY@0800 [facility] Last Admin: 02/04/19 08:04 Dose: 150 mg - Objective Vital Signs: Vital Signs Temperature 98.0 F 02/04/19 10:00 Pulse Rate 102 H 02/04/19 10:00 Respiratory Rate 20 02/04/19 10:00 Blood Pressure 96/63 02/04/19 10:00 O2 Sat by Pulse Oximetry (%) 100 01/31/19 09:00 Constitutional: Yes: Well Nourished, No Distress, Calm Cardiovascular: Yes: Regular Rate and Rhythm Respiratory: Yes: Regular Gastrointestinal: Yes: Normal Bowel Sounds, Soft Genitourinary: Yes: WNL Musculoskeletal: Yes: WNL Extremities: Yes: WNL Edema: No Peripheral Pulses WNL: Yes Wound/Incision: Yes: Dressing Dry and Intact (RLE) Neurological: Yes: Alert, Oriented Psychiatric: Yes: Alert, Oriented Labs: CBC, BMP 02/02/19 07:15 02/02/19 07:15 Assessment/Plan (1) COPD (chronic obstructive pulmonary disease) Assessment/Plan: -Pulm on board -keep SpO2 >90% -O2 via NC -Symbicort -Bronchodilators Code(s): J44.9 - CHRONIC OBSTRUCTIVE PULMONARY DISEASE, UNSPECIFIED (2) Cellulitis Assessment/Plan: -ID on board -Leukocytosis -afebrile -Vancomycin, Zosyn -BC neg -daily dressing changes -Vascular US RLE shows no DVT -pain control Code(s): L03.90 - CELLULITIS, UNSPECIFIED (3) DKA (diabetic ketoacidoses) Assessment/Plan: -Endocrinology on board -Levemir BID -ISS -HgA1c 13.0% -Pt is non compliant Code(s): E11.10 - TYPE 2 DIABETES MELLITUS WITH KETOACIDOSIS WITHOUT COMA Qualifiers: Diabetes mellitus type: type 2 Diabetes mellitus complication detail: without coma Qualified Code(s): E11.10 - Type 2 diabetes mellitus with ketoacidosis without coma (4) Hyperkalemia Assessment/Plan: -resolved -monitor electrolytes and replete as needed Code(s): E87.5 - HYPERKALEMIA (5) Weakness Assessment/Plan: -PT -fall precaution Code(s): R53.1 - WEAKNESS (6) ELIZABETH (acute kidney injury) Assessment/Plan: -Renal on board Code(s): N17.9 - ACUTE KIDNEY FAILURE, UNSPECIFIED (7) Diabetes Assessment/Plan: -Endocrinology on board -Levemir BID -ISS -HgA1c 13.0% -dietary consult -diabetic diet -patient is extremely non-compliant with medication regimen Code(s): E11.9 - TYPE 2 DIABETES MELLITUS WITHOUT COMPLICATIONS Qualifiers: Diabetes mellitus type: type 2 (8) Fall Assessment/Plan: -PT -fall risk precaution Code(s): W19.XXXA - UNSPECIFIED FALL, INITIAL ENCOUNTER (9) Depression Assessment/Plan: -Effexor -Psych consult Code(s): F32.9 - MAJOR DEPRESSIVE DISORDER, SINGLE EPISODE, UNSPECIFIED
--- NOTE | 2019-02-04 12:48 | PN ---
Progress Note (short form) - Note Progress Note: PULMONARY Denies shortness of breath, cough. Wants to go home. Vital Signs Period Temp Pulse Resp BP Sys/Boothe Pulse Ox Last 24 Hr 98.0 F-98.5 F 84-102 18-20 96-105/61-68 Gen: NAD at rest Heart: RRR Lung: decreased breath sounds at the bases Abd: soft, nontender Ext: RLE dressed CBC, BMP 02/02/19 07:15 02/02/19 07:15 Active Medications Acetaminophen (Tylenol -) 650 mg PO Q6H PRN PRN Reason: PAIN OR FEVER Last Admin: 02/03/19 06:00 Dose: 650 mg Albuterol Sulfate (Ventolin Hfa Inhaler -) 2 puff IH RQID [facility] Last Admin: 02/04/19 11:43 Dose: 2 puff Budesonide/Formoterol Fumarate (Symbicort 80/4.5mcg -) 1 puff IH BID [facility] Last Admin: 02/04/19 09:07 Dose: 1 puff Gabapentin (Neurontin -) 300 mg PO TID [facility] Last Admin: 02/04/19 06:23 Dose: 300 mg Vancomycin HCl (Vancomycin (Pre-Docked)) 1,000 mg in 250 mls @ 200 mls/hr IVPB Q24H [facility]; Protocol Last Admin: 02/03/19 15:49 Dose: 200 mls/hr Piperacillin Sod/Tazobactam (Sod 3.375 gm/ Dextrose) 50 mls @ 100 mls/hr IVPB Q8H-IV [facility]; Protocol Last Admin: 02/04/19 09:04 Dose: 100 mls/hr Dextrose/Sodium Chloride (D5-1/2ns -) 1,000 mls @ 70 mls/hr IV ASDIR [facility] Last Admin: 02/03/19 21:59 Dose: 70 mls/hr Insulin Aspart (Novolog Vial Sliding Scale -) 1 vial SQ ACHS [facility]; Protocol Last Admin: 02/04/19 11:40 Dose: 3 units Insulin Detemir (Levemir Vial) 20 units SQ AM [facility] Last Admin: 02/04/19 06:58 Dose: 20 units Lactic Acid (Lac-Hydrin 12) 1 applic TP BID [facility] Last Admin: 02/04/19 09:07 Dose: 1 applic Morphine Sulfate (Msir -) 15 mg PO Q6H PRN PRN Reason: PAIN Last Admin: 02/04/19 09:05 Dose: 15 mg Quetiapine Fumarate (Seroquel -) 200 mg PO TID [facility] Last Admin: 02/04/19 06:23 Dose: 200 mg Triamcinolone Acetonide (Aristocort 0.5% Cream -) 1 applic TP BID [facility] Last Admin: 02/04/19 09:07 Dose: 1 applic Venlafaxine HCl (Effexor Xr -) 150 mg PO DAILY@0800 [facility] Last Admin: 02/04/19 08:04 Dose: 150 mg A/P Diabetic Ketoacidosis resolved COPD Acute Kidney Injury improving Cellulitis HTN - continue antibiotics - ID f/u - wound care - inhaled bronchodilators - O2 as needed - rehab/PT - outpt PFTs, CT chest - DVT prophylaxis
[2019-02-04] MEDS: VANCOMYCIN 1 GRAM (PRE-DOCKED) 1,000 MG/250 ML BAG IVPB SCH (15:43)
[2019-02-04] MEDS: DEXTROSE 5%-0.45% SALINE 1,000 ML IV SCH (17:37)
[2019-02-04] MEDS ORDERED: INSULIN (NOVOLOG) ASPART 100 UNITS/ML 10ML VIAL ONE (20:57)
[2019-02-05] MEDS ORDERED: PIPERACILLIN/TAZOBACTAM 3.375 GM VIAL IVPB ONE ×2 (00:23→10:46)
[2019-02-05] MEDS ORDERED: DEXTROSE 5%-WATER - 50 ML IVPB ONE ×2 (00:24→10:47)
[2019-02-05] MEDS: PIPERACILLIN/TAZOB 3.375 GM 3.375 GM in DEXTROSE 5%-WATER - 50 ML IVPB SCH ×2 (01:10→11:51)
[2019-02-05] MEDS: GABAPENTIN 300 MG CAPSULE (FP) PO SCH ×3 (06:28→22:08)
[2019-02-05] MEDS: INSULIN (LEVEMIR) 100 UNITS/ML UNITS SQ SCH (06:28)
[2019-02-05] MEDS: QUEtiapine FUMARATE 200 MG TABLET PO SCH ×3 (06:28→22:08)
[2019-02-05] MEDS: INSULIN SLIDING SCALE (NOVOLOG) 1 VIAL SQ SCH ×4 (06:33→22:11)
[2019-02-05] MEDS: ACETAMINOPHEN 325 MG TABLET (FP) PO PRN (06:53)
[2019-02-05] MEDS: ALBUTEROL SO4 8 GM HFA INHALER IH SCH ×4 (09:47→21:00)
--- NOTE | 2019-02-05 09:59 | PN ---
Progress Note, Physician - Current Medication List Current Medications: Active Medications Acetaminophen (Tylenol -) 650 mg PO Q6H PRN PRN Reason: PAIN OR FEVER Last Admin: 02/05/19 06:53 Dose: 650 mg Albuterol Sulfate (Ventolin Hfa Inhaler -) 2 puff IH RQID [facility] Last Admin: 02/04/19 20:45 Dose: 2 puff Budesonide/Formoterol Fumarate (Symbicort 80/4.5mcg -) 1 puff IH BID [facility] Last Admin: 02/04/19 21:05 Dose: 1 puff Gabapentin (Neurontin -) 300 mg PO TID [facility] Last Admin: 02/05/19 06:28 Dose: 300 mg Vancomycin HCl (Vancomycin (Pre-Docked)) 1,000 mg in 250 mls @ 200 mls/hr IVPB Q24H [facility]; Protocol Last Admin: 02/04/19 15:43 Dose: 200 mls/hr Piperacillin Sod/Tazobactam (Sod 3.375 gm/ Dextrose) 50 mls @ 100 mls/hr IVPB Q8H-IV [facility]; Protocol Last Admin: 02/05/19 01:10 Dose: 100 mls/hr Dextrose/Sodium Chloride (D5-1/2ns -) 1,000 mls @ 70 mls/hr IV ASDIR [facility] Last Admin: 02/04/19 17:37 Dose: 70 mls/hr Insulin Aspart (Novolog Vial Sliding Scale -) 1 vial SQ ACHS [facility]; Protocol Last Admin: 02/05/19 06:33 Dose: 3 units Insulin Detemir (Levemir Vial) 20 units SQ AM [facility] Last Admin: 02/05/19 06:28 Dose: 20 units Lactic Acid (Lac-Hydrin 12) 1 applic TP BID [facility] Last Admin: 02/04/19 21:02 Dose: 1 applic Quetiapine Fumarate (Seroquel -) 200 mg PO TID [facility] Last Admin: 02/05/19 06:28 Dose: 200 mg Triamcinolone Acetonide (Aristocort 0.5% Cream -) 1 applic TP BID [facility] Last Admin: 02/04/19 21:02 Dose: 1 applic Venlafaxine HCl (Effexor Xr -) 150 mg PO DAILY@0800 [facility] Last Admin: 02/04/19 08:04 Dose: 150 mg - Objective Vital Signs: Vital Signs Temperature 98.6 F 02/05/19 06:00 Pulse Rate 97 H 02/05/19 06:00 Respiratory Rate 20 02/05/19 06:00 Blood Pressure 129/64 02/05/19 06:00 O2 Sat by Pulse Oximetry (%) 100 01/31/19 09:00 Cardiovascular: Yes: S1, S2 Respiratory: Yes: Regular, CTA Bilaterally Gastrointestinal: Yes: Normal Bowel Sounds, Soft Integumentary: Yes: Venous Stasis Changes Wound/Incision: Yes: Excoriated Labs: CBC, BMP 02/02/19 07:15 02/02/19 07:15 Problem List - Problems (1) DKA, type 2, not at goal Code(s): E11.10 - TYPE 2 DIABETES MELLITUS WITH KETOACIDOSIS WITHOUT COMA (2) Cellulitis Code(s): L03.90 - CELLULITIS, UNSPECIFIED (3) ELIZABETH (acute kidney injury) Code(s): N17.9 - ACUTE KIDNEY FAILURE, UNSPECIFIED (4) Electrolyte abnormality Code(s): E87.8 - OTH DISORDERS OF ELECTROLYTE AND FLUID BALANCE, NEC (5) COPD (chronic obstructive pulmonary disease) Code(s): J44.9 - CHRONIC OBSTRUCTIVE PULMONARY DISEASE, UNSPECIFIED (6) Edema Code(s): R60.9 - EDEMA, UNSPECIFIED (7) Dermatitis Code(s): L30.9 - DERMATITIS, UNSPECIFIED Assessment/Plan (1) COPD (chronic obstructive pulmonary disease) Assessment/Plan: -Pulm on board -keep SpO2 >90% -O2 via NC -Symbicort -Bronchodilators Code(s): J44.9 - CHRONIC OBSTRUCTIVE PULMONARY DISEASE, UNSPECIFIED (2) Cellulitis Assessment/Plan: -ID on board -Leukocytosis-13 -afebrile -Vancomycin, Zosyn -BC neg -daily dressing changes -Vascular US RLE shows no DVT -pain control Code(s): L03.90 - CELLULITIS, UNSPECIFIED (3) DKA (diabetic ketoacidoses) Assessment/Plan: -Endocrinology on board -Levemir BID -ISS -HgA1c 13.0% -Pt is non compliant Code(s): E11.10 - TYPE 2 DIABETES MELLITUS WITH KETOACIDOSIS WITHOUT COMA Qualifiers: Diabetes mellitus type: type 2 Diabetes mellitus complication detail: without coma Qualified Code(s): E11.10 - Type 2 diabetes mellitus with ketoacidosis without coma (4) Hyperkalemia Assessment/Plan: -resolved -monitor electrolytes and replete as needed Code(s): E87.5 - HYPERKALEMIA (5) Weakness Assessment/Plan: -PT -fall precaution Code(s): R53.1 - WEAKNESS (6) ELIZABETH (acute kidney injury) Assessment/Plan: -Renal on board Code(s): N17.9 - ACUTE KIDNEY FAILURE, UNSPECIFIED (7) Diabetes Assessment/Plan: -Endocrinology on board -Levemir BID -ISS -HgA1c 13.0% -dietary consult -diabetic diet -patient is extremely non-compliant with medication regimen Code(s): E11.9 - TYPE 2 DIABETES MELLITUS WITHOUT COMPLICATIONS Qualifiers: Diabetes mellitus type: type 2 (8) Fall Assessment/Plan: -PT -fall risk precaution Code(s): W19.XXXA - UNSPECIFIED FALL, INITIAL ENCOUNTER (9) Depression Assessment/Plan: -Effexor -Psych consult Code(s): F32.9 - MAJOR DEPRESSIVE DISORDER, SINGLE EPISODE, UNSPECIFIED
--- NOTE | 2019-02-05 10:42 | PN ---
Progress Note (short form) - Note Progress Note: Resting in bed in NAD on RA. Denies shortness of breath or cough. Wants to go home. Refused CT chest despite risks and benefits being explained in detail. Intake & Output 02/02/19 02/03/19 02/04/19 02/05/19 23:59 23:59 23:59 23:59 Intake Total 1070 1050 3630 740 Balance 1070 1050 3630 740 Weight 143 lb Last Vital Signs Temp Pulse Resp BP Pulse Ox 98.6 F 97 H 20 129/64 100 02/05/19 06:00 02/05/19 06:00 02/05/19 06:00 02/05/19 06:00 01/31/19 09:00 Active Medications Acetaminophen (Tylenol -) 650 mg PO Q6H PRN PRN Reason: PAIN OR FEVER Last Admin: 02/05/19 06:53 Dose: 650 mg Albuterol Sulfate (Ventolin Hfa Inhaler -) 2 puff IH RQID [facility] Last Admin: 02/04/19 20:45 Dose: 2 puff Budesonide/Formoterol Fumarate (Symbicort 80/4.5mcg -) 1 puff IH BID [facility] Last Admin: 02/04/19 21:05 Dose: 1 puff Gabapentin (Neurontin -) 300 mg PO TID [facility] Last Admin: 02/05/19 06:28 Dose: 300 mg Vancomycin HCl (Vancomycin (Pre-Docked)) 1,000 mg in 250 mls @ 200 mls/hr IVPB Q24H [facility]; Protocol Last Admin: 02/04/19 15:43 Dose: 200 mls/hr Piperacillin Sod/Tazobactam (Sod 3.375 gm/ Dextrose) 50 mls @ 100 mls/hr IVPB Q8H-IV [facility]; Protocol Last Admin: 02/05/19 01:10 Dose: 100 mls/hr Dextrose/Sodium Chloride (D5-1/2ns -) 1,000 mls @ 70 mls/hr IV ASDIR [facility] Last Admin: 02/04/19 17:37 Dose: 70 mls/hr Insulin Aspart (Novolog Vial Sliding Scale -) 1 vial SQ ACHS [facility]; Protocol Last Admin: 02/05/19 06:33 Dose: 3 units Insulin Detemir (Levemir Vial) 20 units SQ AM [facility] Last Admin: 02/05/19 06:28 Dose: 20 units Lactic Acid (Lac-Hydrin 12) 1 applic TP BID [facility] Last Admin: 02/04/19 21:02 Dose: 1 applic Quetiapine Fumarate (Seroquel -) 200 mg PO TID [facility] Last Admin: 02/05/19 06:28 Dose: 200 mg Triamcinolone Acetonide (Aristocort 0.5% Cream -) 1 applic TP BID [facility] Last Admin: 02/04/19 21:02 Dose: 1 applic Venlafaxine HCl (Effexor Xr -) 150 mg PO DAILY@0800 [facility] Last Admin: 02/04/19 08:04 Dose: 150 mg Gen: NAD at rest Heart: RRR Lung: decreased breath sounds at the bases Abd: soft, nontender Ext: RLE dressed Laboratory Results - last 24 hr 02/04/19 02/04/19 02/04/19 11:27 16:20 21:09 POC Glucometer 164 131 211 02/05/19 06:33 POC Glucometer 216 A/P Diabetic Ketoacidosis resolved COPD Acute Kidney Injury improving Cellulitis HTN - Patient is refusing CT chest - ABX per ID - Local wound care - inhaled bronchodilators - O2 as needed - rehab/PT - outpt PFTs, CT chest if patient is willing - DVT prophylaxis Dr Momin
[2019-02-05 11:03] LABS: BASO % 0.2 % (0-2.0); EOS % 1.2 % (0-4.5); HEMATOCRIT 27.6 % (32.4-45.2); HEMOGLOBIN 8.7 GM/dL (10.7-15.3); LYMPH % 11.1 % (8-40); MCH 27.6 pg (25.7-33.7); MCHC 31.7 g/dl (32.0-36.0); MEAN CELL VOLUME 86.9 fl (80-96); MEAN PLT VOLUME 8.2 fl (7.5-11.1); MONO % 7.5 % (3.8-10.2); PLATELET COUNT 238 K/MM3 (134-434); RBC 3.17 M/mm3 (3.60-5.2); RDW 13.4 % (11.6-15.6); WHITE BLOOD COUNT 13.4 K/mm3 (4.0-10.0)
[2019-02-05 11:39] LABS: ALBUMIN 1.9 g/dl (3.4-5.0); BILIRUBIN,TOTAL 0.2 mg/dL (0.2-1); BLOOD UREA NITROGEN 23.1 mg/dL (7-18); CREATININE 1.5 mg/dL (0.55-1.3); POTASSIUM 4.3 mmol/L (3.5-5.1); TOT PROT 6.1 g/dl (6.4-8.2)
[2019-02-05] MEDS: TRIAMCINOLONE ACET 0.5% CREAM 15 GM TUBE TP SCH ×2 (11:50→22:06)
[2019-02-05] MEDS: VENLAFAXINE HCL 75 MG E.R. CAPSULES (FP) PO SCH (11:50)
[2019-02-05] MEDS: AMMONIUM LACTATE 12% LOTION 225 GM BOTTLE TP SCH ×2 (11:50→22:06)
[2019-02-05] MEDS: BUDESONIDE/FORMETEROL FUMARATE 80/4.5 mcg INHALER IH SCH ×2 (11:51→22:06)
--- NOTE | 2019-02-05 14:33 | PN ---
Progress Note, Physician History of Present Illness: Pt seen and examined at bedside. She is awake and alert. She denies shortness of breath. - Current Medication List Current Medications: Active Medications Acetaminophen (Tylenol -) 650 mg PO Q6H PRN PRN Reason: PAIN OR FEVER Last Admin: 02/05/19 06:53 Dose: 650 mg Albuterol Sulfate (Ventolin Hfa Inhaler -) 2 puff IH RQID [facility] Last Admin: 02/04/19 20:45 Dose: 2 puff Budesonide/Formoterol Fumarate (Symbicort 80/4.5mcg -) 1 puff IH BID [facility] Last Admin: 02/05/19 11:51 Dose: 1 puff Gabapentin (Neurontin -) 300 mg PO TID [facility] Last Admin: 02/05/19 13:40 Dose: Not Given Vancomycin HCl (Vancomycin (Pre-Docked)) 1,000 mg in 250 mls @ 200 mls/hr IVPB Q24H [facility]; Protocol Last Admin: 02/04/19 15:43 Dose: 200 mls/hr Piperacillin Sod/Tazobactam (Sod 3.375 gm/ Dextrose) 50 mls @ 100 mls/hr IVPB Q8H-IV [facility]; Protocol Last Admin: 02/05/19 11:51 Dose: 100 mls/hr Dextrose/Sodium Chloride (D5-1/2ns -) 1,000 mls @ 70 mls/hr IV ASDIR [facility] Last Admin: 02/04/19 17:37 Dose: 70 mls/hr Insulin Aspart (Novolog Vial Sliding Scale -) 1 vial SQ ACHS [facility]; Protocol Last Admin: 02/05/19 12:05 Dose: 5 units Insulin Detemir (Levemir Vial) 20 units SQ AM [facility] Last Admin: 02/05/19 06:28 Dose: 20 units Lactic Acid (Lac-Hydrin 12) 1 applic TP BID [facility] Last Admin: 02/05/19 11:50 Dose: 1 applic Quetiapine Fumarate (Seroquel -) 200 mg PO TID [facility] Last Admin: 02/05/19 13:40 Dose: Not Given Triamcinolone Acetonide (Aristocort 0.5% Cream -) 1 applic TP BID [facility] Last Admin: 02/05/19 11:50 Dose: 1 applic Venlafaxine HCl (Effexor Xr -) 150 mg PO DAILY@0800 [facility] Last Admin: 02/05/19 11:50 Dose: 150 mg - Objective Vital Signs: Vital Signs Temperature 98 F 02/05/19 10:00 Pulse Rate 86 02/05/19 10:00 Respiratory Rate 20 02/05/19 10:00 Blood Pressure 115/54 L 02/05/19 10:00 O2 Sat by Pulse Oximetry (%) 100 01/31/19 09:00 Constitutional: Yes: Calm Eyes: Yes: Conjunctiva Clear HENT: Yes: Atraumatic Neck: Yes: Supple Cardiovascular: Yes: S1, S2 Respiratory: Yes: CTA Bilaterally Gastrointestinal: Yes: Normal Bowel Sounds, Soft Musculoskeletal: Yes: WNL Edema: Yes Edema: RLE: 1+ Wound/Incision: Yes: Dressing Dry and Intact Neurological: Yes: Oriented Psychiatric: Yes: Oriented Labs: CBC, BMP 02/05/19 10:53 02/05/19 10:53 Problem List - Problems (1) COPD (chronic obstructive pulmonary disease) Code(s): J44.9 - CHRONIC OBSTRUCTIVE PULMONARY DISEASE, UNSPECIFIED (2) Hyperkalemia Code(s): E87.5 - HYPERKALEMIA (3) ELIZABETH (acute kidney injury) Code(s): N17.9 - ACUTE KIDNEY FAILURE, UNSPECIFIED Assessment/Plan Current Medications Generic Name Dose Route Start Last Admin Trade Name Freq PRN Reason Stop Dose Admin Acetaminophen 650 mg 01/27/19 03:09 02/05/19 06:53 Tylenol - PO 650 mg Q6H PRN Administration PAIN OR FEVER Albuterol Sulfate 2 puff 01/27/19 20:00 02/04/19 20:45 Ventolin Hfa Inhaler - IH 2 puff RQID [facility] Administration Budesonide/Formoterol Fumarate 1 puff 01/27/19 10:00 02/05/19 11:51 Symbicort 80/4.5mcg - IH 1 puff BID [facility] Administration Gabapentin 300 mg 01/27/19 14:00 02/05/19 13:40 Neurontin - PO Not Given TID [facility] Vancomycin HCl 1,000 mg in 250 mls @ 200 mls/hr 01/30/19 16:45 02/04/19 15:43 Vancomycin (Pre-Docked) IVPB 200 mls/hr Q24H [facility] Administration Protocol Piperacillin Sod/Tazobactam 50 mls @ 100 mls/hr 01/30/19 18:00 02/05/19 11:51 Sod 3.375 gm/ Dextrose IVPB 100 mls/hr Q8H-IV [facility] Administration Protocol Dextrose/Sodium Chloride 1,000 mls @ 70 mls/hr 02/03/19 21:45 02/04/19 17:37 D5-1/2ns - IV 70 mls/hr ASDIR [facility] Administration Insulin Aspart 1 vial 02/03/19 22:00 02/05/19 12:05 Novolog Vial Sliding Scale - SQ 5 units ACHS [facility] Administration Protocol Insulin Detemir 20 units 02/04/19 07:00 02/05/19 06:28 Levemir Vial SQ 20 units AM [facility] Administration Lactic Acid 1 applic 01/28/19 11:00 02/05/19 11:50 Lac-Hydrin 12 TP 1 applic BID [facility] Administration Quetiapine Fumarate 200 mg 02/01/19 14:00 02/05/19 13:40 Seroquel - PO Not Given TID [facility] Triamcinolone Acetonide 1 applic 01/28/19 11:00 02/05/19 11:50 Aristocort 0.5% Cream - TP 1 applic BID [facility] Administration Venlafaxine HCl 150 mg 01/27/19 08:00 02/05/19 11:50 Effexor Xr - PO 150 mg DAILY@0800 [facility] Administration Impression 1. CKD 2. HTN 3. s/p fall 4. DM 5. ELIZABETH 6. 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
[2019-02-05] MEDS ORDERED: SODIUM CHLORIDE 0.45% 1,000 ML IV SCH (14:45)
--- NOTE | 2019-02-05 15:34 | PN ---
Progress Note, Physician History of Present Illness: AWAKE, LETHARGIC NO C/O LEG PAIN AFEBRILE BC (-) - Current Medication List Current Medications: Active Medications Acetaminophen (Tylenol -) 650 mg PO Q6H PRN PRN Reason: PAIN OR FEVER Last Admin: 02/05/19 06:53 Dose: 650 mg Albuterol Sulfate (Ventolin Hfa Inhaler -) 2 puff IH RQID [facility] Last Admin: 02/04/19 20:45 Dose: 2 puff Budesonide/Formoterol Fumarate (Symbicort 80/4.5mcg -) 1 puff IH BID [facility] Last Admin: 02/05/19 11:51 Dose: 1 puff Gabapentin (Neurontin -) 300 mg PO TID [facility] Last Admin: 02/05/19 13:40 Dose: Not Given Sodium Chloride (1/2 Normal Saline) 1,000 mls @ 50 mls/hr IV ASDIR [facility] Stop: 02/06/19 14:33 Insulin Aspart (Novolog Vial Sliding Scale -) 1 vial SQ ACHS [facility]; Protocol Last Admin: 02/05/19 12:05 Dose: 5 units Insulin Detemir (Levemir Vial) 20 units SQ AM [facility] Last Admin: 02/05/19 06:28 Dose: 20 units Lactic Acid (Lac-Hydrin 12) 1 applic TP BID [facility] Last Admin: 02/05/19 11:50 Dose: 1 applic Quetiapine Fumarate (Seroquel -) 200 mg PO TID [facility] Last Admin: 02/05/19 13:40 Dose: Not Given Triamcinolone Acetonide (Aristocort 0.5% Cream -) 1 applic TP BID [facility] Last Admin: 02/05/19 11:50 Dose: 1 applic Venlafaxine HCl (Effexor Xr -) 150 mg PO DAILY@0800 [facility] Last Admin: 02/05/19 11:50 Dose: 150 mg - Objective Vital Signs: Vital Signs Temperature 98 F 02/05/19 10:00 Pulse Rate 86 02/05/19 10:00 Respiratory Rate 20 02/05/19 10:00 Blood Pressure 115/54 L 02/05/19 10:00 O2 Sat by Pulse Oximetry (%) 100 01/31/19 09:00 Constitutional: Yes: No Distress Eyes: Yes: Conjunctiva Clear Cardiovascular: Yes: Regular Rate and Rhythm, S1, S2 Respiratory: Yes: CTA Bilaterally Gastrointestinal: Yes: Normal Bowel Sounds, Soft. No: Tenderness Extremities: Yes: Other (MINIMAL RESIDUAL ERYTHEMA R LE) Labs: CBC, BMP 02/05/19 10:53 02/05/19 10:53 Assessment/Plan R LE CELLULITIS DM CKD SUBSTITUTE AUGMENTIN 875MG PO BID X 7D
[2019-02-05] MEDS: AMOX TR/POT CLAV 875MG/125MG TABLETS (FP) PO SCH (16:54)
[2019-02-06] MEDS: GABAPENTIN 300 MG CAPSULE (FP) PO SCH ×3 (06:05→21:11)
[2019-02-06] MEDS: QUEtiapine FUMARATE 200 MG TABLET PO SCH ×3 (06:05→21:11)
[2019-02-06] MEDS: INSULIN (LEVEMIR) 100 UNITS/ML UNITS SQ SCH (06:05)
[2019-02-06] MEDS: INSULIN SLIDING SCALE (NOVOLOG) 1 VIAL SQ SCH ×4 (06:07→21:11)
[2019-02-06 08:26] LABS: BASO % 0.2 % (0-2.0); HEMATOCRIT 27.8 % (32.4-45.2); LYMPH % 13.9 % (8-40); MCHC 32.2 g/dl (32.0-36.0); MEAN PLT VOLUME 8.4 fl (7.5-11.1); MONO % 6.4 % (3.8-10.2); NEUT % 78.5 % (42.8-82.8); PLATELET COUNT 269 K/MM3 (134-434); RBC 3.19 M/mm3 (3.60-5.2); RDW 13.4 % (11.6-15.6); WHITE BLOOD COUNT 15.3 K/mm3 (4.0-10.0)
[2019-02-06] MEDS: VENLAFAXINE HCL 75 MG E.R. CAPSULES (FP) PO SCH (08:46)
[2019-02-06 09:01] LABS: BILIRUBIN,TOTAL 0.3 mg/dL (0.2-1); BLOOD UREA NITROGEN 18.7 mg/dL (7-18); CALCIUM 8.2 mg/dL (8.5-10.1); CREATININE 1.1 mg/dL (0.55-1.3); POTASSIUM 4.4 mmol/L (3.5-5.1); TOT PROT 6.4 g/dl (6.4-8.2)
[2019-02-06] MEDS: ALBUTEROL SO4 8 GM HFA INHALER IH SCH ×4 (09:47→20:45)
[2019-02-06] MEDS: AMOX TR/POT CLAV 875MG/125MG TABLETS (FP) PO SCH ×2 (09:47→17:47)
[2019-02-06] MEDS: AMMONIUM LACTATE 12% LOTION 225 GM BOTTLE TP SCH ×2 (09:48→21:11)
[2019-02-06] MEDS: TRIAMCINOLONE ACET 0.5% CREAM 15 GM TUBE TP SCH ×2 (09:48→21:11)
[2019-02-06] MEDS: BUDESONIDE/FORMETEROL FUMARATE 80/4.5 mcg INHALER IH SCH ×2 (09:49→21:11)
--- NOTE | 2019-02-06 10:23 | PN ---
Progress Note (short form) - Note Progress Note: Resting in bed in NAD on RA. Denies shortness of breath or cough. Refused CT chest yesterday despite risks and benefits being explained in detail. Intake & Output 02/03/19 02/04/19 02/05/19 02/06/19 23:59 23:59 23:59 23:59 Intake Total 1050 3630 1620 550 Balance 1050 3630 1620 550 Last Vital Signs Temp Pulse Resp BP Pulse Ox 98 F 91 H 17 110/67 100 02/06/19 09:59 02/06/19 09:59 02/06/19 09:59 02/06/19 09:59 01/31/19 09:00 Active Medications Acetaminophen (Tylenol -) 650 mg PO Q6H PRN PRN Reason: PAIN OR FEVER Last Admin: 02/05/19 06:53 Dose: 650 mg Albuterol Sulfate (Ventolin Hfa Inhaler -) 2 puff IH RQID [facility] Last Admin: 02/06/19 09:47 Dose: 2 puff Amoxicillin/Clavulanate Potassium (Augmentin - 875mg Tablet) 1 tab PO BID@0800, 1730 [facility] Last Admin: 02/06/19 09:47 Dose: 1 tab Budesonide/Formoterol Fumarate (Symbicort 80/4.5mcg -) 1 puff IH BID [facility] Last Admin: 02/06/19 09:49 Dose: 1 puff Gabapentin (Neurontin -) 300 mg PO TID [facility] Last Admin: 02/06/19 06:05 Dose: 300 mg Sodium Chloride (1/2 Normal Saline) 1,000 mls @ 50 mls/hr IV ASDIR [facility] Stop: 02/06/19 14:33 Last Admin: 02/05/19 16:05 Dose: 50 mls/hr Insulin Aspart (Novolog Vial Sliding Scale -) 1 vial SQ ACHS [facility]; Protocol Last Admin: 02/06/19 06:07 Dose: 4 units Insulin Detemir (Levemir Vial) 20 units SQ AM [facility] Last Admin: 02/06/19 06:05 Dose: 20 units Lactic Acid (Lac-Hydrin 12) 1 applic TP BID [facility] Last Admin: 02/06/19 09:48 Dose: 1 applic Quetiapine Fumarate (Seroquel -) 200 mg PO TID [facility] Last Admin: 02/06/19 06:05 Dose: 200 mg Triamcinolone Acetonide (Aristocort 0.5% Cream -) 1 applic TP BID [facility] Last Admin: 02/06/19 09:48 Dose: 1 applic Venlafaxine HCl (Effexor Xr -) 150 mg PO DAILY@0800 [facility] Last Admin: 02/06/19 08:46 Dose: 150 mg Gen: NAD at rest Heart: RRR Lung: decreased breath sounds at the bases Abd: soft, nontender Ext: RLE dressed Laboratory Results - last 24 hr 02/05/19 02/05/19 02/05/19 10:53 10:53 11:54 WBC 13.4 H RBC 3.17 L Hgb 8.7 L Hct 27.6 L MCV 86.9 MCH 27.6 MCHC 31.7 L RDW 13.4 Plt Count 238 D MPV 8.2 Absolute Neuts (auto) 10.7 H Neutrophils % 80.0 Lymphocytes % 11.1 Monocytes % 7.5 Eosinophils % 1.2 Basophils % 0.2 Nucleated RBC % 0 Sodium 136 Potassium 4.3 Chloride 100 Carbon Dioxide 31 Anion Gap 4 L BUN 23.1 H Creatinine 1.5 H Est GFR (CKD-EPI)AfAm 40.77 Est GFR (CKD-EPI)NonAf 35.18 POC Glucometer 305 Random Glucose 280 H Calcium 8.0 L Total Bilirubin 0.2 AST 34 ALT 32 Alkaline Phosphatase 206 H Total Protein 6.1 L Albumin 1.9 L 02/05/19 02/05/19 02/06/19 16:51 22:11 05:49 WBC RBC Hgb Hct MCV MCH MCHC RDW Plt Count MPV Absolute Neuts (auto) Neutrophils % Lymphocytes % Monocytes % Eosinophils % Basophils % Nucleated RBC % Sodium Potassium Chloride Carbon Dioxide Anion Gap BUN Creatinine Est GFR (CKD-EPI)AfAm Est GFR (CKD-EPI)NonAf POC Glucometer 179 242 243 Random Glucose Calcium Total Bilirubin AST ALT Alkaline Phosphatase Total Protein Albumin 02/06/19 02/06/19 07:24 07:24 WBC 15.3 H RBC 3.19 L Hgb 9.0 L Hct 27.8 L MCV 87.0 MCH 28.0 MCHC 32.2 RDW 13.4 Plt Count 269 MPV 8.4 Absolute Neuts (auto) 12.0 H Neutrophils % 78.5 Lymphocytes % 13.9 D Monocytes % 6.4 Eosinophils % 1.0 Basophils % 0.2 Nucleated RBC % 0 Sodium 136 Potassium 4.4 Chloride 102 Carbon Dioxide 30 Anion Gap 4 L BUN 18.7 H Creatinine 1.1 Est GFR (CKD-EPI)AfAm 59.32 Est GFR (CKD-EPI)NonAf 51.18 POC Glucometer Random Glucose 229 H Calcium 8.2 L Total Bilirubin 0.3 AST 25 ALT 27 Alkaline Phosphatase 207 H Total Protein 6.4 Albumin 2.0 L A/P Diabetic Ketoacidosis resolved COPD Acute Kidney Injury improving Cellulitis HTN - Patient is refusing CT chest - ABX per ID - Local wound care - inhaled bronchodilators - O2 as needed - rehab/PT - outpt PFTs, CT chest if patient is willing - DVT prophylaxis - DC planning Dr Momin
--- NOTE | 2019-02-06 11:18 | PN ---
Progress Note, Physician - Current Medication List Current Medications: Active Medications Acetaminophen (Tylenol -) 650 mg PO Q6H PRN PRN Reason: PAIN OR FEVER Last Admin: 02/05/19 06:53 Dose: 650 mg Albuterol Sulfate (Ventolin Hfa Inhaler -) 2 puff IH RQID [facility] Last Admin: 02/06/19 09:47 Dose: 2 puff Amoxicillin/Clavulanate Potassium (Augmentin - 875mg Tablet) 1 tab PO BID@0800, 1730 [facility] Last Admin: 02/06/19 09:47 Dose: 1 tab Budesonide/Formoterol Fumarate (Symbicort 80/4.5mcg -) 1 puff IH BID [facility] Last Admin: 02/06/19 09:49 Dose: 1 puff Gabapentin (Neurontin -) 300 mg PO TID [facility] Last Admin: 02/06/19 06:05 Dose: 300 mg Sodium Chloride (1/2 Normal Saline) 1,000 mls @ 50 mls/hr IV ASDIR [facility] Stop: 02/06/19 14:33 Last Admin: 02/05/19 16:05 Dose: 50 mls/hr Insulin Aspart (Novolog Vial Sliding Scale -) 1 vial SQ ACHS [facility]; Protocol Last Admin: 02/06/19 06:07 Dose: 4 units Insulin Detemir (Levemir Vial) 20 units SQ AM [facility] Last Admin: 02/06/19 06:05 Dose: 20 units Lactic Acid (Lac-Hydrin 12) 1 applic TP BID [facility] Last Admin: 02/06/19 09:48 Dose: 1 applic Quetiapine Fumarate (Seroquel -) 200 mg PO TID [facility] Last Admin: 02/06/19 06:05 Dose: 200 mg Triamcinolone Acetonide (Aristocort 0.5% Cream -) 1 applic TP BID [facility] Last Admin: 02/06/19 09:48 Dose: 1 applic Venlafaxine HCl (Effexor Xr -) 150 mg PO DAILY@0800 [facility] Last Admin: 02/06/19 08:46 Dose: 150 mg - Objective Vital Signs: Vital Signs Temperature 98 F 02/06/19 09:59 Pulse Rate 91 H 02/06/19 09:59 Respiratory Rate 17 02/06/19 09:59 Blood Pressure 110/67 02/06/19 09:59 O2 Sat by Pulse Oximetry (%) 100 01/31/19 09:00 Cardiovascular: Yes: S1 Respiratory: Yes: Regular, CTA Bilaterally Gastrointestinal: Yes: Normal Bowel Sounds, Soft Extremities: Yes: Erythema Wound/Incision: Yes: Reddened Labs: CBC, BMP 02/06/19 07:24 02/06/19 07:24 Problem List - Problems (1) DKA, type 2, not at goal Code(s): E11.10 - TYPE 2 DIABETES MELLITUS WITH KETOACIDOSIS WITHOUT COMA (2) Cellulitis Code(s): L03.90 - CELLULITIS, UNSPECIFIED (3) ELIZABETH (acute kidney injury) Code(s): N17.9 - ACUTE KIDNEY FAILURE, UNSPECIFIED (4) Electrolyte abnormality Code(s): E87.8 - OTH DISORDERS OF ELECTROLYTE AND FLUID BALANCE, NEC (5) COPD (chronic obstructive pulmonary disease) Code(s): J44.9 - CHRONIC OBSTRUCTIVE PULMONARY DISEASE, UNSPECIFIED (6) Edema Code(s): R60.9 - EDEMA, UNSPECIFIED (7) Dermatitis Code(s): L30.9 - DERMATITIS, UNSPECIFIED Assessment/Plan (1) COPD (chronic obstructive pulmonary disease) Assessment/Plan: -Pulm on board -keep SpO2 >90% -O2 via NC -Symbicort -Bronchodilators Code(s): J44.9 - CHRONIC OBSTRUCTIVE PULMONARY DISEASE, UNSPECIFIED (2) Cellulitis Assessment/Plan: -ID on board -Leukocytosis-15--vasc and id follow up -afebrile -Vancomycin, Zosyn -BC neg -daily dressing changes -Vascular US RLE shows no DVT -pain control Code(s): L03.90 - CELLULITIS, UNSPECIFIED (3) DKA (diabetic ketoacidoses) Assessment/Plan: -Endocrinology on board -Levemir BID -ISS -HgA1c 13.0% -Pt is non compliant Code(s): E11.10 - TYPE 2 DIABETES MELLITUS WITH KETOACIDOSIS WITHOUT COMA Qualifiers: Diabetes mellitus type: type 2 Diabetes mellitus complication detail: without coma Qualified Code(s): E11.10 - Type 2 diabetes mellitus with ketoacidosis without coma (4) Hyperkalemia Assessment/Plan: -resolved -monitor electrolytes and replete as needed Code(s): E87.5 - HYPERKALEMIA (5) Weakness Assessment/Plan: -PT -fall precaution Code(s): R53.1 - WEAKNESS (6) ELIZABETH (acute kidney injury) Assessment/Plan: -Renal on board Code(s): N17.9 - ACUTE KIDNEY FAILURE, UNSPECIFIED (7) Diabetes Assessment/Plan: -Endocrinology on board -Levemir BID -ISS -HgA1c 13.0% -dietary consult -diabetic diet -patient is extremely non-compliant with medication regimen Code(s): E11.9 - TYPE 2 DIABETES MELLITUS WITHOUT COMPLICATIONS Qualifiers: Diabetes mellitus type: type 2 (8) Fall Assessment/Plan: -PT -fall risk precaution Code(s): W19.XXXA - UNSPECIFIED FALL, INITIAL ENCOUNTER (9) Depression Assessment/Plan: -Effexor -Psych consult Code(s): F32.9 - MAJOR DEPRESSIVE DISORDER, SINGLE EPISODE, UNSPECIFIED DC PLANNING____SNF
[2019-02-06] MEDS: ACETAMINOPHEN 325 MG TABLET (FP) PO PRN (14:44)
--- NOTE | 2019-02-06 15:28 | PN ---
Progress Note, Physician History of Present Illness: Pt seen and examined at bedside. She is awake and alert. She complains of poor appetite. - Current Medication List Current Medications: Active Medications Acetaminophen (Tylenol -) 650 mg PO Q6H PRN PRN Reason: PAIN OR FEVER Last Admin: 02/06/19 14:44 Dose: 650 mg Albuterol Sulfate (Ventolin Hfa Inhaler -) 2 puff IH RQID [facility] Last Admin: 02/06/19 12:26 Dose: 2 puff Amoxicillin/Clavulanate Potassium (Augmentin - 875mg Tablet) 1 tab PO BID@0800, 1730 [facility] Last Admin: 02/06/19 09:47 Dose: 1 tab Budesonide/Formoterol Fumarate (Symbicort 80/4.5mcg -) 1 puff IH BID [facility] Last Admin: 02/06/19 09:49 Dose: 1 puff Gabapentin (Neurontin -) 300 mg PO TID [facility] Last Admin: 02/06/19 14:44 Dose: 300 mg Insulin Aspart (Novolog Vial Sliding Scale -) 1 vial SQ ACHS [facility]; Protocol Last Admin: 02/06/19 12:26 Dose: 3 units Insulin Detemir (Levemir Vial) 20 units SQ AM [facility] Last Admin: 02/06/19 06:05 Dose: 20 units Lactic Acid (Lac-Hydrin 12) 1 applic TP BID [facility] Last Admin: 02/06/19 09:48 Dose: 1 applic Quetiapine Fumarate (Seroquel -) 200 mg PO TID [facility] Last Admin: 02/06/19 14:44 Dose: 200 mg Triamcinolone Acetonide (Aristocort 0.5% Cream -) 1 applic TP BID [facility] Last Admin: 02/06/19 09:48 Dose: 1 applic Venlafaxine HCl (Effexor Xr -) 150 mg PO DAILY@0800 [facility] Last Admin: 02/06/19 08:46 Dose: 150 mg - Objective Vital Signs: Vital Signs Temperature 99.6 F 02/06/19 15:04 Pulse Rate 91 H 02/06/19 15:04 Respiratory Rate 17 02/06/19 15:04 Blood Pressure 118/60 02/06/19 15:04 O2 Sat by Pulse Oximetry (%) 100 01/31/19 09:00 Constitutional: Yes: Calm Eyes: Yes: Conjunctiva Clear HENT: Yes: Atraumatic Neck: Yes: Supple Cardiovascular: Yes: S1, S2 Respiratory: Yes: CTA Bilaterally Gastrointestinal: Yes: Soft Genitourinary: Yes: WNL Musculoskeletal: Yes: WNL Edema: Yes Edema: RLE: Trace Wound/Incision: Yes: Dressing Dry and Intact Neurological: Yes: Oriented Psychiatric: Yes: Oriented Labs: CBC, BMP 02/06/19 07:24 02/06/19 07:24 Problem List - Problems (1) COPD (chronic obstructive pulmonary disease) Code(s): J44.9 - CHRONIC OBSTRUCTIVE PULMONARY DISEASE, UNSPECIFIED (2) Hyperkalemia Code(s): E87.5 - HYPERKALEMIA (3) ELIZABETH (acute kidney injury) Code(s): N17.9 - ACUTE KIDNEY FAILURE, UNSPECIFIED Assessment/Plan Current Medications Generic Name Dose Route Start Last Admin Trade Name Freq PRN Reason Stop Dose Admin Acetaminophen 650 mg 01/27/19 03:09 02/06/19 14:44 Tylenol - PO 650 mg Q6H PRN Administration PAIN OR FEVER Albuterol Sulfate 2 puff 01/27/19 20:00 02/06/19 12:26 Ventolin Hfa Inhaler - IH 2 puff RQID [facility] Administration Amoxicillin/Clavulanate Potassium 1 tab 02/05/19 17:30 02/06/19 09:47 Augmentin - 875mg Tablet PO 1 tab BID@0800,1730 [facility] Administration Budesonide/Formoterol Fumarate 1 puff 01/27/19 10:00 02/06/19 09:49 Symbicort 80/4.5mcg - IH 1 puff BID [facility] Administration Gabapentin 300 mg 01/27/19 14:00 02/06/19 14:44 Neurontin - PO 300 mg TID [facility] Administration Insulin Aspart 1 vial 02/03/19 22:00 02/06/19 12:26 Novolog Vial Sliding Scale - SQ 3 units ACHS [facility] Administration Protocol Insulin Detemir 20 units 02/04/19 07:00 02/06/19 06:05 Levemir Vial SQ 20 units AM [facility] Administration Lactic Acid 1 applic 01/28/19 11:00 02/06/19 09:48 Lac-Hydrin 12 TP 1 applic BID [facility] Administration Quetiapine Fumarate 200 mg 02/01/19 14:00 02/06/19 14:44 Seroquel - PO 200 mg TID [facility] Administration Triamcinolone Acetonide 1 applic 01/28/19 11:00 02/06/19 09:48 Aristocort 0.5% Cream - TP 1 applic BID [facility] Administration Venlafaxine HCl 150 mg 01/27/19 08:00 02/06/19 08:46 Effexor Xr - PO 150 mg DAILY@0800 [facility] Administration Impression 1. CKD 2. HTN 3. s/p fall 4. DM 5. ELIZABETH 6. 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
[2019-02-06] MEDS ORDERED: INSULIN (NOVOLOG) ASPART 100 UNITS/ML 10ML VIAL ONE (21:04)
[2019-02-07] MEDS: INSULIN SLIDING SCALE (NOVOLOG) 1 VIAL SQ SCH ×4 (06:14→21:12)
[2019-02-07] MEDS: INSULIN (LEVEMIR) 100 UNITS/ML UNITS SQ SCH (06:14)
[2019-02-07] MEDS: QUEtiapine FUMARATE 200 MG TABLET PO SCH ×3 (06:14→22:06)
[2019-02-07] MEDS: GABAPENTIN 300 MG CAPSULE (FP) PO SCH ×3 (06:14→22:06)
[2019-02-07] MEDS ORDERED: INSULIN (LEVEMIR) 100 UNITS/ML UNITS SQ ONE (07:27)
[2019-02-07 08:10] LABS: BASO % 0.3 % (0-2.0); EOS % 1.2 % (0-4.5); HEMATOCRIT 28.1 % (32.4-45.2); HEMOGLOBIN 8.9 GM/dL (10.7-15.3); LYMPH % 16.7 % (8-40); MCH 27.6 pg (25.7-33.7); MCHC 31.7 g/dl (32.0-36.0); MEAN CELL VOLUME 87.4 fl (80-96); MEAN PLT VOLUME 8.2 fl (7.5-11.1); MONO % 6.9 % (3.8-10.2); NEUT % 74.9 % (42.8-82.8); PLATELET COUNT 275 K/MM3 (134-434); RBC 3.22 M/mm3 (3.60-5.2); RDW 13.5 % (11.6-15.6); WHITE BLOOD COUNT 13.5 K/mm3 (4.0-10.0)
[2019-02-07] MEDS: ALBUTEROL SO4 8 GM HFA INHALER IH SCH ×4 (08:14→20:30)
[2019-02-07] MEDS: AMOX TR/POT CLAV 875MG/125MG TABLETS (FP) PO SCH ×2 (08:14→16:43)
[2019-02-07] MEDS: VENLAFAXINE HCL 75 MG E.R. CAPSULES (FP) PO SCH (08:14)
[2019-02-07 08:20] LABS: BLOOD UREA NITROGEN 16.3 mg/dL (7-18); CALCIUM 8.8 mg/dL (8.5-10.1); CREATININE 1.1 mg/dL (0.55-1.3); POTASSIUM 5.2 mmol/L (3.5-5.1)
--- NOTE | 2019-02-07 08:47 | PN ---
Progress Note (short form) - Note Progress Note: alert continued RLE pain Vital Signs Period Temp Pulse Resp BP Sys/Boothe Pulse Ox Last 24 Hr 98 F-99.6 F 87-94 16-18 100-125/55-67 cor-rrr lungs clear abd soft,nt ext some induration LLE, blister has drained CBC, BMP 02/07/19 07:00 02/07/19 07:00 Microbiology 01/26/19 18:50 Blood - Peripheral Venous Blood Culture - Final NO GROWTH AFTER 5 DAYS INCUBATION 01/26/19 18:50 Blood - Peripheral Venous Blood Culture - Final NO GROWTH AFTER 5 DAYS INCUBATION hgbA1c 13 imp/reccd RLE cellulitis still painful- continue augmentin continue local care wbc trending down, repeat in am will need wound care f/u diabetes out of control (noncompliance) ckd
[2019-02-07] MEDS: AMMONIUM LACTATE 12% LOTION 225 GM BOTTLE TP SCH ×2 (10:12→21:13)
[2019-02-07] MEDS: BUDESONIDE/FORMETEROL FUMARATE 80/4.5 mcg INHALER IH SCH ×2 (10:12→21:13)
[2019-02-07] MEDS: TRIAMCINOLONE ACET 0.5% CREAM 15 GM TUBE TP SCH ×2 (10:12→21:13)
--- NOTE | 2019-02-07 10:17 | PN ---
Progress Note (short form) - Note Progress Note: Resting in bed in NAD on RA. Denies shortness of breath or cough. Still with some RLE discomfort Intake & Output 02/04/19 02/05/19 02/06/19 02/07/19 23:59 23:59 23:59 23:59 Intake Total 3630 1620 1620 500 Balance 3630 1620 1620 500 Last Vital Signs Temp Pulse Resp BP Pulse Ox 98.1 F 94 H 18 125/58 L 100 02/07/19 06:00 02/07/19 06:00 02/07/19 06:00 02/07/19 06:00 01/31/19 09:00 Active Medications Acetaminophen (Tylenol -) 650 mg PO Q6H PRN PRN Reason: PAIN OR FEVER Last Admin: 02/06/19 14:44 Dose: 650 mg Albuterol Sulfate (Ventolin Hfa Inhaler -) 2 puff IH RQID [facility] Last Admin: 02/07/19 08:14 Dose: 2 puff Amoxicillin/Clavulanate Potassium (Augmentin - 875mg Tablet) 1 tab PO BID@0800, 1730 [facility] Last Admin: 02/07/19 08:14 Dose: 1 tab Budesonide/Formoterol Fumarate (Symbicort 80/4.5mcg -) 1 puff IH BID [facility] Last Admin: 02/07/19 10:12 Dose: 1 puff Gabapentin (Neurontin -) 300 mg PO TID [facility] Last Admin: 02/07/19 06:14 Dose: 300 mg Insulin Aspart (Novolog Vial Sliding Scale -) 1 vial SQ ACHS [facility]; Protocol Last Admin: 02/07/19 06:14 Dose: 4 units Insulin Detemir (Levemir Vial) 20 units SQ AM [facility] Last Admin: 02/07/19 06:14 Dose: 20 units Lactic Acid (Lac-Hydrin 12) 1 applic TP BID [facility] Last Admin: 02/07/19 10:12 Dose: 1 applic Quetiapine Fumarate (Seroquel -) 200 mg PO TID [facility] Last Admin: 02/07/19 06:14 Dose: 200 mg Triamcinolone Acetonide (Aristocort 0.5% Cream -) 1 applic TP BID [facility] Last Admin: 02/07/19 10:12 Dose: 1 applic Venlafaxine HCl (Effexor Xr -) 150 mg PO DAILY@0800 [facility] Last Admin: 02/07/19 08:14 Dose: 150 mg Gen: NAD at rest Heart: RRR Lung: decreased breath sounds at the bases Abd: soft, nontender Ext: RLE dressed Laboratory Results - last 24 hr 02/06/19 02/06/19 02/06/19 11:47 16:59 21:01 WBC RBC Hgb Hct MCV MCH MCHC RDW Plt Count MPV Absolute Neuts (auto) Neutrophils % Lymphocytes % Monocytes % Eosinophils % Basophils % Nucleated RBC % Sodium Potassium Chloride Carbon Dioxide Anion Gap BUN Creatinine Est GFR (CKD-EPI)AfAm Est GFR (CKD-EPI)NonAf POC Glucometer 163 123 212 Random Glucose Calcium 02/07/19 02/07/19 02/07/19 06:00 07:00 07:00 WBC 13.5 H RBC 3.22 L Hgb 8.9 L Hct 28.1 L MCV 87.4 MCH 27.6 MCHC 31.7 L RDW 13.5 Plt Count 275 MPV 8.2 Absolute Neuts (auto) 10.1 H Neutrophils % 74.9 Lymphocytes % 16.7 D Monocytes % 6.9 Eosinophils % 1.2 Basophils % 0.3 Nucleated RBC % 0 Sodium 138 Potassium 5.2 H Chloride 103 Carbon Dioxide 30 Anion Gap 5 L BUN 16.3 Creatinine 1.1 Est GFR (CKD-EPI)AfAm 59.32 Est GFR (CKD-EPI)NonAf 51.18 POC Glucometer 232 Random Glucose 203 H Calcium 8.8 A/P Diabetic Ketoacidosis resolved COPD Acute Kidney Injury improving Cellulitis HTN - Patient is refusing CT chest - ABX per ID - Local wound care - inhaled bronchodilators - O2 as needed - rehab/PT - outpt PFTs, CT chest if patient is willing - DVT prophylaxis - DC planning Dr Momin
[2019-02-07] MEDS ORDERED: SODIUM ZIRCONIUM CYCLOSILICATE (LOKELMA) 5 GM PACKET PO ONE (12:00)
--- NOTE | 2019-02-07 12:25 | PN ---
Progress Note, Physician Chief Complaint: DM ELIZABETH History of Present Illness: NAD Sitting at the edge of the bed Now febrile - Current Medication List Current Medications: Active Medications Acetaminophen (Tylenol -) 650 mg PO Q6H PRN PRN Reason: PAIN OR FEVER Last Admin: 02/06/19 14:44 Dose: 650 mg Albuterol Sulfate (Ventolin Hfa Inhaler -) 2 puff IH RQID [facility] Last Admin: 02/07/19 12:05 Dose: 2 puff Amoxicillin/Clavulanate Potassium (Augmentin - 875mg Tablet) 1 tab PO BID@0800, 1730 [facility] Last Admin: 02/07/19 08:14 Dose: 1 tab Budesonide/Formoterol Fumarate (Symbicort 80/4.5mcg -) 1 puff IH BID [facility] Last Admin: 02/07/19 10:12 Dose: 1 puff Gabapentin (Neurontin -) 300 mg PO TID [facility] Last Admin: 02/07/19 06:14 Dose: 300 mg Insulin Aspart (Novolog Vial Sliding Scale -) 1 vial SQ [facility]; Protocol Last Admin: 02/07/19 12:04 Dose: 3 units Insulin Detemir (Levemir Vial) 20 units SQ AM [facility] Last Admin: 02/07/19 06:14 Dose: 20 units Lactic Acid (Lac-Hydrin 12) 1 applic TP BID [facility] Last Admin: 02/07/19 10:12 Dose: 1 applic Quetiapine Fumarate (Seroquel -) 200 mg PO TID [facility] Last Admin: 02/07/19 06:14 Dose: 200 mg Triamcinolone Acetonide (Aristocort 0.5% Cream -) 1 applic TP BID [facility] Last Admin: 02/07/19 10:12 Dose: 1 applic Venlafaxine HCl (Effexor Xr -) 150 mg PO DAILY@0800 [facility] Last Admin: 02/07/19 08:14 Dose: 150 mg - Objective Vital Signs: Vital Signs Temperature 100.5 F H 02/07/19 10:00 Pulse Rate 90 02/07/19 10:00 Respiratory Rate 20 02/07/19 10:00 Blood Pressure 119/65 02/07/19 10:00 O2 Sat by Pulse Oximetry (%) 100 01/31/19 09:00 Constitutional: Yes: Well Nourished, No Distress, Calm Cardiovascular: Yes: Regular Rate and Rhythm Respiratory: Yes: Regular Gastrointestinal: Yes: Normal Bowel Sounds, Soft Genitourinary: Yes: WNL Musculoskeletal: Yes: WNL Extremities: Yes: WNL Edema: No Peripheral Pulses WNL: Yes Wound/Incision: Yes: Dressing Dry and Intact (RLE) Neurological: Yes: Alert, Oriented Psychiatric: Yes: Alert, Oriented Labs: CBC, BMP 02/07/19 07:00 02/07/19 07:00 Assessment/Plan (1) COPD (chronic obstructive pulmonary disease) Assessment/Plan: -Pulm on board -keep SpO2 >90% -O2 via NC -Symbicort -Bronchodilators Code(s): J44.9 - CHRONIC OBSTRUCTIVE PULMONARY DISEASE, UNSPECIFIED (2) Cellulitis Assessment/Plan: -ID on board -Leukocytosis -afebrile -Augmentin -BC neg -daily dressing changes -Vascular US RLE shows no DVT -pain control Code(s): L03.90 - CELLULITIS, UNSPECIFIED (3) DKA (diabetic ketoacidoses) Assessment/Plan: -Endocrinology on board -Levemir BID -ISS -HgA1c 13.0% -Pt is non compliant Code(s): E11.10 - TYPE 2 DIABETES MELLITUS WITH KETOACIDOSIS WITHOUT COMA Qualifiers: Diabetes mellitus type: type 2 Diabetes mellitus complication detail: without coma Qualified Code(s): E11.10 - Type 2 diabetes mellitus with ketoacidosis without coma (4) Hyperkalemia Assessment/Plan: -resolved -monitor electrolytes and replete as needed Code(s): E87.5 - HYPERKALEMIA (5) Weakness Assessment/Plan: -PT -fall precaution Code(s): R53.1 - WEAKNESS (6) ELIZABETH (acute kidney injury) Assessment/Plan: -Renal on board Code(s): N17.9 - ACUTE KIDNEY FAILURE, UNSPECIFIED (7) Diabetes Assessment/Plan: -Endocrinology on board -Levemir BID -ISS -HgA1c 13.0% -dietary consult -diabetic diet -patient is extremely non-compliant with medication regimen Code(s): E11.9 - TYPE 2 DIABETES MELLITUS WITHOUT COMPLICATIONS Qualifiers: Diabetes mellitus type: type 2 (8) Fall Assessment/Plan: -PT -fall risk precaution Code(s): W19.XXXA - UNSPECIFIED FALL, INITIAL ENCOUNTER (9) Depression Assessment/Plan: -Effexor -Psych consult Code(s): F32.9 - MAJOR DEPRESSIVE DISORDER, SINGLE EPISODE, UNSPECIFIED
[2019-02-07] MEDS ORDERED: PT OWN MED DRAWER 7, Y5N ONE ×2 (13:44→18:26)
--- NOTE | 2019-02-07 14:35 | PN ---
Progress Note, Physician History of Present Illness: Pt seen and examined at bedside. She denies shortness of breath. She denies dysuria or hematuria. - Current Medication List Current Medications: Active Medications Acetaminophen (Tylenol -) 650 mg PO Q6H PRN PRN Reason: PAIN OR FEVER Last Admin: 02/06/19 14:44 Dose: 650 mg Albuterol Sulfate (Ventolin Hfa Inhaler -) 2 puff IH RQID [facility] Last Admin: 02/07/19 12:05 Dose: 2 puff Amoxicillin/Clavulanate Potassium (Augmentin - 875mg Tablet) 1 tab PO BID@0800, 1730 [facility] Last Admin: 02/07/19 08:14 Dose: 1 tab Budesonide/Formoterol Fumarate (Symbicort 80/4.5mcg -) 1 puff IH BID [facility] Last Admin: 02/07/19 10:12 Dose: 1 puff Gabapentin (Neurontin -) 300 mg PO TID [facility] Last Admin: 02/07/19 13:01 Dose: 300 mg Insulin Aspart (Novolog Vial Sliding Scale -) 1 vial SQ ACHS [facility]; Protocol Last Admin: 02/07/19 12:04 Dose: 3 units Insulin Detemir (Levemir Vial) 20 units SQ AM [facility] Last Admin: 02/07/19 06:14 Dose: 20 units Lactic Acid (Lac-Hydrin 12) 1 applic TP BID [facility] Last Admin: 02/07/19 10:12 Dose: 1 applic Quetiapine Fumarate (Seroquel -) 200 mg PO TID [facility] Last Admin: 02/07/19 13:02 Dose: 200 mg Triamcinolone Acetonide (Aristocort 0.5% Cream -) 1 applic TP BID [facility] Last Admin: 02/07/19 10:12 Dose: 1 applic Venlafaxine HCl (Effexor Xr -) 150 mg PO DAILY@0800 [facility] Last Admin: 02/07/19 08:14 Dose: 150 mg - Objective Vital Signs: Vital Signs Temperature 100.5 F H 02/07/19 10:00 Pulse Rate 90 02/07/19 10:00 Respiratory Rate 20 02/07/19 10:00 Blood Pressure 119/65 02/07/19 10:00 O2 Sat by Pulse Oximetry (%) 100 01/31/19 09:00 Constitutional: Yes: Calm Eyes: Yes: Conjunctiva Clear HENT: Yes: Atraumatic Cardiovascular: Yes: S1, S2 Respiratory: Yes: CTA Bilaterally Gastrointestinal: Yes: Normal Bowel Sounds, Soft Genitourinary: Yes: WNL Musculoskeletal: Yes: WNL Edema: No Wound/Incision: Yes: Dressing Dry and Intact Neurological: Yes: Oriented Labs: CBC, BMP 02/07/19 07:00 02/07/19 07:00 Problem List - Problems (1) COPD (chronic obstructive pulmonary disease) Code(s): J44.9 - CHRONIC OBSTRUCTIVE PULMONARY DISEASE, UNSPECIFIED (2) Hyperkalemia Code(s): E87.5 - HYPERKALEMIA (3) ELIZABETH (acute kidney injury) Code(s): N17.9 - ACUTE KIDNEY FAILURE, UNSPECIFIED Assessment/Plan Impression 1. CKD 2. HTN 3. s/p fall 4. DM 5. ELIZABETH 6. hyperkalemia Plan - will give lokelma for elevated potassium - gentle hydration - cont abx per ID - cont wound care to leg - avoid nsaids - avoid nephrotoxins
[2019-02-08] MEDS: INSULIN SLIDING SCALE (NOVOLOG) 1 VIAL SQ SCH ×4 (06:13→21:32)
[2019-02-08] MEDS: QUEtiapine FUMARATE 200 MG TABLET PO SCH ×3 (06:16→21:26)
[2019-02-08] MEDS: GABAPENTIN 300 MG CAPSULE (FP) PO SCH ×3 (06:16→21:26)
[2019-02-08] MEDS: INSULIN (LEVEMIR) 100 UNITS/ML UNITS SQ SCH (06:17)
[2019-02-08] MEDS: ALBUTEROL SO4 8 GM HFA INHALER IH SCH ×4 (08:00→21:27)
[2019-02-08 08:32] LABS: BASO % 0.6 % (0-2.0); EOS % 1.4 % (0-4.5); HEMATOCRIT 28.5 % (32.4-45.2); HEMOGLOBIN 9.1 GM/dL (10.7-15.3); LYMPH % 17.3 % (8-40); MCH 27.9 pg (25.7-33.7); MEAN CELL VOLUME 87.1 fl (80-96); MEAN PLT VOLUME 8.2 fl (7.5-11.1); NEUT % 74.7 % (42.8-82.8); PLATELET COUNT 337 K/MM3 (134-434); RBC 3.27 M/mm3 (3.60-5.2); RDW 13.5 % (11.6-15.6)
[2019-02-08] MEDS: TRIAMCINOLONE ACET 0.5% CREAM 15 GM TUBE TP SCH ×2 (09:14→21:27)
[2019-02-08] MEDS: AMOX TR/POT CLAV 875MG/125MG TABLETS (FP) PO SCH ×2 (09:14→17:30)
[2019-02-08] MEDS: VENLAFAXINE HCL 75 MG E.R. CAPSULES (FP) PO SCH (09:14)
[2019-02-08] MEDS: BUDESONIDE/FORMETEROL FUMARATE 80/4.5 mcg INHALER IH SCH ×2 (09:15→21:27)
[2019-02-08] MEDS: AMMONIUM LACTATE 12% LOTION 225 GM BOTTLE TP SCH ×2 (09:15→21:27)
[2019-02-08 09:17] LABS: ALBUMIN 2.2 g/dl (3.4-5.0); BILIRUBIN,TOTAL 0.3 mg/dL (0.2-1); BLOOD UREA NITROGEN 17.1 mg/dL (7-18); CALCIUM 8.8 mg/dL (8.5-10.1); CREATININE 1.1 mg/dL (0.55-1.3); POTASSIUM 4.9 mmol/L (3.5-5.1); TOT PROT 6.7 g/dl (6.4-8.2)
--- NOTE | 2019-02-08 09:45 | DS ---
Physical Examination Vital Signs: Vital Signs Temperature 98.7 F 02/08/19 07:53 Pulse Rate 92 H 02/08/19 07:53 Respiratory Rate 18 02/08/19 07:53 Blood Pressure 135/75 02/08/19 07:53 O2 Sat by Pulse Oximetry (%) 95 02/07/19 21:00 Cardiovascular: Yes: S1, S2 Respiratory: Yes: Regular, CTA Bilaterally Labs: CBC, BMP 02/08/19 07:33 02/08/19 07:33 Discharge Summary Problems reviewed: Yes Reason For Visit: CELLULITIS, DIABETIC KETOACIDOSIS ASSOCIATED WITH Current Active Problems COPD (chronic obstructive pulmonary disease) (Acute) Cellulitis (Acute) DKA (diabetic ketoacidoses) (Acute) DKA, type 2, not at goal (Acute) Dermatitis (Acute) Edema (Acute) Electrolyte abnormality (Acute) Hyperkalemia (Acute) Hypermagnesemia (Acute) Schizoaffective disorder, chronic condition (Acute) Status post fall (Acute) Weakness (Acute) Hospital Course: (1) COPD (chronic obstructive pulmonary disease) Assessment/Plan: -Pulm on board -keep SpO2 >90% -O2 via NC -Symbicort -Bronchodilators Code(s): J44.9 - CHRONIC OBSTRUCTIVE PULMONARY DISEASE, UNSPECIFIED (2) Cellulitis Assessment/Plan: -ID on board -Leukocytosis -afebrile -Augmentin -BC neg -daily dressing changes -Vascular US RLE shows no DVT -pain control Code(s): L03.90 - CELLULITIS, UNSPECIFIED (3) DKA (diabetic ketoacidoses) Assessment/Plan: -Endocrinology on board -Levemir BID -ISS -HgA1c 13.0% -Pt is non compliant Code(s): E11.10 - TYPE 2 DIABETES MELLITUS WITH KETOACIDOSIS WITHOUT COMA Qualifiers: Diabetes mellitus type: type 2 Diabetes mellitus complication detail: without coma Qualified Code(s): E11.10 - Type 2 diabetes mellitus with ketoacidosis without coma (4) Hyperkalemia Assessment/Plan: -resolved -monitor electrolytes and replete as needed Code(s): E87.5 - HYPERKALEMIA (5) Weakness Assessment/Plan: -PT -fall precaution Code(s): R53.1 - WEAKNESS (6) ELIZABETH (acute kidney injury) Assessment/Plan: -Renal on board Code(s): N17.9 - ACUTE KIDNEY FAILURE, UNSPECIFIED (7) Diabetes Assessment/Plan: -Endocrinology on board -Levemir BID -ISS -HgA1c 13.0% -dietary consult -diabetic diet -patient is extremely non-compliant with medication regimen Code(s): E11.9 - TYPE 2 DIABETES MELLITUS WITHOUT COMPLICATIONS Qualifiers: Diabetes mellitus type: type 2 (8) Fall Assessment/Plan: -PT -fall risk precaution Code(s): W19.XXXA - UNSPECIFIED FALL, INITIAL ENCOUNTER (9) Depression Assessment/Plan: -Effexor -Psych consult Code(s): F32.9 - MAJOR DEPRESSIVE DISORDER, SINGLE EPISODE, UNSPECIFIED Condition: Stable - Instructions Referrals: Mamie Mckenzie [Primary Care Provider] - 1 Week - Home Medications Comprehensive Discharge Medication List: Ambulatory Orders Gabapentin [Neurontin -] 300 mg PO Q8H PRN 03/28/17 Venlafaxine HCl ER [Effexor Xr -] 150 mg PO DAILY 03/28/17 Acetaminophen [Tylenol .Regular Strength -] 650 mg PO Q6H PRN tablet 09/06/18 Albuterol Sulfate [Albuterol Sulfate Hfa] 8.5 gm IH QID #3 hfa.aer.ad 09/07/18 Budesonide/Formeterol Fumarate [SYMBICORT 80/4.5mcg -] 1 inh PO BID #1 cannister 09/07/18 Lactobacillus Acidophilus [Acidophilus] 1 each PO DAILY #30 capsule 09/27/18 Ammonium Lactate Lotion [Lac-Hydrin 12] 1 applic TP BID #1 bottle 02/08/19 Amox-Tr/K Cl [Augmentin 875-125mg Tablet -] 1 tab PO BID@0800,1730 #14 tablet Insulin (Levemir) [Levemir Vial] 25 units SQ AM #5 syringe 02/08/19 Triamcinolone 0.5% Cream [Aristocort 0.5% Cream -] 1 applic TP BID #60 grams
--- NOTE | 2019-02-08 12:50 | PN ---
Progress Note (short form) - Note Progress Note: PULMONARY VSS/AFEBRILE SUBJECTIVE IMPROVEMENT Gen: NAD at rest Heart: RRR Lung: decreased breath sounds at the bases Abd: soft, nontender Ext: RLE edema LABS/MEDS/NOTES/IMAGES REVIEWED A/P Diabetic Ketoacidosis resolved COPD Acute Kidney Injury improving Cellulitis HTN - antibiotics - wound care - inhaled bronchodilators - O2 as needed - rehab/PT - outpt PFTs, CT chest - DVT prophylaxis Leonard CANTU MD
--- NOTE | 2019-02-08 13:04 | PN ---
Progress Note, Physician History of Present Illness: Pt seen and examined at bedside. She is awake and appears comfortable. She denies shortness of breath. - Current Medication List Current Medications: Active Medications Acetaminophen (Tylenol -) 650 mg PO Q6H PRN PRN Reason: PAIN OR FEVER Last Admin: 02/06/19 14:44 Dose: 650 mg Albuterol Sulfate (Ventolin Hfa Inhaler -) 2 puff IH RQID [facility] Last Admin: 02/07/19 20:30 Dose: 2 puff Amoxicillin/Clavulanate Potassium (Augmentin - 875mg Tablet) 1 tab PO BID@0800, 1730 [facility] Last Admin: 02/08/19 09:14 Dose: 1 tab Budesonide/Formoterol Fumarate (Symbicort 80/4.5mcg -) 1 puff IH BID [facility] Last Admin: 02/08/19 09:15 Dose: 1 puff Gabapentin (Neurontin -) 300 mg PO TID [facility] Last Admin: 02/08/19 06:16 Dose: 300 mg Insulin Aspart (Novolog Vial Sliding Scale -) 1 vial SQ ACHS [facility]; Protocol Last Admin: 02/08/19 11:49 Dose: 4 units Insulin Detemir (Levemir Vial) 20 units SQ AM [facility] Last Admin: 02/08/19 06:17 Dose: 20 units Lactic Acid (Lac-Hydrin 12) 1 applic TP BID [facility] Last Admin: 02/08/19 09:15 Dose: 1 applic Quetiapine Fumarate (Seroquel -) 200 mg PO TID [facility] Last Admin: 02/08/19 06:16 Dose: 200 mg Triamcinolone Acetonide (Aristocort 0.5% Cream -) 1 applic TP BID [facility] Last Admin: 02/08/19 09:14 Dose: 1 applic Venlafaxine HCl (Effexor Xr -) 150 mg PO DAILY@0800 [facility] Last Admin: 02/08/19 09:14 Dose: 150 mg - Objective Vital Signs: Vital Signs Temperature 98.7 F 02/08/19 07:53 Pulse Rate 92 H 02/08/19 07:53 Respiratory Rate 18 02/08/19 07:53 Blood Pressure 135/75 02/08/19 07:53 O2 Sat by Pulse Oximetry (%) 95 02/08/19 09:00 Constitutional: Yes: Calm Eyes: Yes: Conjunctiva Clear HENT: Yes: Atraumatic Neck: Yes: Supple Cardiovascular: Yes: S1, S2 Respiratory: Yes: CTA Bilaterally Gastrointestinal: Yes: Soft Genitourinary: Yes: WNL Musculoskeletal: Yes: WNL Edema: No Integumentary: Yes: Erythema Wound/Incision: Yes: Dressing Dry and Intact Neurological: Yes: Oriented Psychiatric: Yes: Oriented Labs: CBC, BMP 02/08/19 07:33 02/08/19 07:33 Problem List - Problems (1) COPD (chronic obstructive pulmonary disease) Code(s): J44.9 - CHRONIC OBSTRUCTIVE PULMONARY DISEASE, UNSPECIFIED (2) Hyperkalemia Code(s): E87.5 - HYPERKALEMIA (3) ELIZABETH (acute kidney injury) Code(s): N17.9 - ACUTE KIDNEY FAILURE, UNSPECIFIED Assessment/Plan Current Medications Generic Name Dose Route Start Last Admin Trade Name Freq PRN Reason Stop Dose Admin Acetaminophen 650 mg 01/27/19 03:09 02/06/19 14:44 Tylenol - PO 650 mg Q6H PRN Administration PAIN OR FEVER Albuterol Sulfate 2 puff 01/27/19 20:00 02/07/19 20:30 Ventolin Hfa Inhaler - IH 2 puff RQID [facility] Administration Amoxicillin/Clavulanate Potassium 1 tab 02/05/19 17:30 02/08/19 09:14 Augmentin - 875mg Tablet PO 1 tab BID@0800,1730 [facility] Administration Budesonide/Formoterol Fumarate 1 puff 01/27/19 10:00 02/08/19 09:15 Symbicort 80/4.5mcg - IH 1 puff BID [facility] Administration Gabapentin 300 mg 01/27/19 14:00 02/08/19 06:16 Neurontin - PO 300 mg TID [facility] Administration Insulin Aspart 1 vial 02/03/19 22:00 02/08/19 11:49 Novolog Vial Sliding Scale - SQ 4 units ACHS [facility] Administration Protocol Insulin Detemir 20 units 02/04/19 07:00 02/08/19 06:17 Levemir Vial SQ 20 units AM [facility] Administration Lactic Acid 1 applic 01/28/19 11:00 02/08/19 09:15 Lac-Hydrin 12 TP 1 applic BID [facility] Administration Quetiapine Fumarate 200 mg 02/01/19 14:00 02/08/19 06:16 Seroquel - PO 200 mg TID [facility] Administration Triamcinolone Acetonide 1 applic 01/28/19 11:00 02/08/19 09:14 Aristocort 0.5% Cream - TP 1 applic BID [facility] Administration Venlafaxine HCl 150 mg 01/27/19 08:00 02/08/19 09:14 Effexor Xr - PO 150 mg DAILY@0800 [facility] Administration Impression 1. CKD 2. HTN 3. s/p fall 4. DM 5. ELIZABETH 6. hyperkalemia Plan - potassium stable - outpt follow up - cont abx per ID - cont wound care to leg - avoid nsaids - avoid nephrotoxins
--- NOTE | 2019-02-08 14:45 | PN ---
Progress Note (short form) - Note Progress Note: alert continued RLE pain NO IV ACCESS Vital Signs Period Temp Pulse Resp BP Sys/Boothe Pulse Ox Last 24 Hr 98.4 F-99.5 F 78-92 16-20 83-135/42-75 95-95 cor-rrr lungs clear abd soft,nt ext much less induration, minimal drainage CBC, BMP 02/08/19 07:33 02/08/19 07:33 Microbiology 01/26/19 18:50 Blood - Peripheral Venous Blood Culture - Final NO GROWTH AFTER 5 DAYS INCUBATION 01/26/19 18:50 Blood - Peripheral Venous Blood Culture - Final NO GROWTH AFTER 5 DAYS INCUBATION hgbA1c 13 imp/reccd RLE cellulitis still painful- but overall improving-continue augmentin continue local care will need wound care f/u refusing SNF diabetes out of control (noncompliance) ckd
[2019-02-08] MEDS ORDERED: INSULIN (NOVOLOG) ASPART 100 UNITS/ML 10ML VIAL ONE (21:22)
[2019-02-09] MEDS: GABAPENTIN 300 MG CAPSULE (FP) PO SCH ×3 (06:09→21:42)
[2019-02-09] MEDS: INSULIN (LEVEMIR) 100 UNITS/ML UNITS SQ SCH (06:09)
[2019-02-09] MEDS: QUEtiapine FUMARATE 200 MG TABLET PO SCH ×3 (06:09→21:42)
[2019-02-09] MEDS: INSULIN SLIDING SCALE (NOVOLOG) 1 VIAL SQ SCH ×4 (06:09→21:47)
[2019-02-09] MEDS: VENLAFAXINE HCL 75 MG E.R. CAPSULES (FP) PO SCH (08:07)
[2019-02-09] MEDS: AMOX TR/POT CLAV 875MG/125MG TABLETS (FP) PO SCH ×2 (08:07→17:14)
[2019-02-09] MEDS: ALBUTEROL SO4 8 GM HFA INHALER IH SCH ×4 (08:08→21:41)
--- NOTE | 2019-02-09 08:19 | DS ---
Physical Examination Vital Signs: Vital Signs Temperature 98.4 F 02/09/19 05:57 Pulse Rate 92 H 02/09/19 05:57 Respiratory Rate 18 02/09/19 05:57 Blood Pressure 118/70 02/09/19 05:57 O2 Sat by Pulse Oximetry (%) 95 02/08/19 21:00 Cardiovascular: Yes: S1, S2 Respiratory: Yes: Regular, CTA Bilaterally Gastrointestinal: Yes: Normal Bowel Sounds, Soft Wound/Incision: Yes: Dressing Removed, Excoriated, Unapproximated Neurological: Yes: Alert, Oriented Labs: CBC, BMP 02/08/19 07:33 02/08/19 07:33 Discharge Summary Problems reviewed: Yes Reason For Visit: CELLULITIS, DIABETIC KETOACIDOSIS ASSOCIATED WITH Current Active Problems COPD (chronic obstructive pulmonary disease) (Acute) Cellulitis (Acute) DKA (diabetic ketoacidoses) (Acute) DKA, type 2, not at goal (Acute) Dermatitis (Acute) Edema (Acute) Electrolyte abnormality (Acute) Hyperkalemia (Acute) Hypermagnesemia (Acute) Schizoaffective disorder, chronic condition (Acute) Status post fall (Acute) Weakness (Acute) Hospital Course: (1) COPD (chronic obstructive pulmonary disease) Assessment/Plan: -Pulm on board -keep SpO2 >90% -O2 via NC -Symbicort -Bronchodilators Code(s): J44.9 - CHRONIC OBSTRUCTIVE PULMONARY DISEASE, UNSPECIFIED (2) Cellulitis--Wound on LE Assessment/Plan: -ID on board -Leukocytosis -afebrile -Augmentin -BC neg -daily dressing changes -Vascular follow up -Duplex no dvt -pain control Code(s): L03.90 - CELLULITIS, UNSPECIFIED (3) DKA (diabetic ketoacidoses) Assessment/Plan: -Endocrinology on board -Levemir BID -ISS -HgA1c 13.0% -Pt is non compliant Code(s): E11.10 - TYPE 2 DIABETES MELLITUS WITH KETOACIDOSIS WITHOUT COMA Qualifiers: Diabetes mellitus type: type 2 Diabetes mellitus complication detail: without coma Qualified Code(s): E11.10 - Type 2 diabetes mellitus with ketoacidosis without coma (4) Hyperkalemia Assessment/Plan: -resolved -monitor electrolytes and replete as needed Code(s): E87.5 - HYPERKALEMIA (5) Weakness Assessment/Plan: -PT -fall precaution Code(s): R53.1 - WEAKNESS (6) ELIZABETH (acute kidney injury) Assessment/Plan: -Renal on board Code(s): N17.9 - ACUTE KIDNEY FAILURE, UNSPECIFIED (7) Diabetes Assessment/Plan: -Endocrinology on board -Levemir BID -ISS -HgA1c 13.0% -dietary consult -diabetic diet -patient is extremely non-compliant with medication regimen Code(s): E11.9 - TYPE 2 DIABETES MELLITUS WITHOUT COMPLICATIONS Qualifiers: Diabetes mellitus type: type 2 (8) Fall Assessment/Plan: -PT -fall risk precaution Code(s): W19.XXXA - UNSPECIFIED FALL, INITIAL ENCOUNTER (9) Depression Assessment/Plan: -Effexor -Psych consult Code(s): F32.9 - MAJOR DEPRESSIVE DISORDER, SINGLE EPISODE, UNSPECIFIED dc planning pt not safe to go home and refusing snf Condition: Stable - Instructions Referrals: Mamie Mckenzie [Primary Care Provider] - 1 Week - Home Medications Comprehensive Discharge Medication List: Ambulatory Orders Gabapentin [Neurontin -] 300 mg PO Q8H PRN 03/28/17 Venlafaxine HCl ER [Effexor Xr -] 150 mg PO DAILY 03/28/17 Acetaminophen [Tylenol .Regular Strength -] 650 mg PO Q6H PRN tablet 09/06/18 Albuterol Sulfate [Albuterol Sulfate Hfa] 8.5 gm IH QID #3 hfa.aer.ad 09/07/18 Budesonide/Formeterol Fumarate [SYMBICORT 80/4.5mcg -] 1 inh PO BID #1 cannister 09/07/18 Lactobacillus Acidophilus [Acidophilus] 1 each PO DAILY #30 capsule 09/27/18 Ammonium Lactate Lotion [Lac-Hydrin 12] 1 applic TP BID #1 bottle 02/08/19 Amox-Tr/K Cl [Augmentin 875-125mg Tablet -] 1 tab PO BID@0800,1730 #14 tablet Insulin (Levemir) [Levemir Vial] 25 units SQ AM #5 syringe 02/08/19 Triamcinolone 0.5% Cream [Aristocort 0.5% Cream -] 1 applic TP BID #60 grams
[2019-02-09] MEDS: AMMONIUM LACTATE 12% LOTION 225 GM BOTTLE TP SCH ×2 (09:17→21:41)
[2019-02-09] MEDS: BUDESONIDE/FORMETEROL FUMARATE 80/4.5 mcg INHALER IH SCH ×2 (09:17→21:41)
[2019-02-09] MEDS: TRIAMCINOLONE ACET 0.5% CREAM 15 GM TUBE TP SCH ×2 (09:17→21:41)
--- NOTE | 2019-02-09 14:25 | PN ---
Progress Note (short form) - Note Progress Note: Resting in bed in NAD on RA. Denies shortness of breath or cough. Intake & Output 02/06/19 02/07/19 02/08/19 02/09/19 23:59 23:59 23:59 23:59 Intake Total 1620 920 240 320 Output Total 1 Balance 1620 920 240 319 Last Vital Signs Temp Pulse Resp BP Pulse Ox 98.8 F 90 20 92/56 L 96 02/09/19 10:00 02/09/19 10:00 02/09/19 10:00 02/09/19 10:00 02/09/19 09:00 Active Medications Acetaminophen (Tylenol -) 650 mg PO Q6H PRN PRN Reason: PAIN OR FEVER Last Admin: 02/06/19 14:44 Dose: 650 mg Albuterol Sulfate (Ventolin Hfa Inhaler -) 2 puff IH RQID [facility] Last Admin: 02/09/19 11:47 Dose: 2 puff Amoxicillin/Clavulanate Potassium (Augmentin - 875mg Tablet) 1 tab PO BID@0800, 1730 [facility] Last Admin: 02/09/19 08:07 Dose: 1 tab Budesonide/Formoterol Fumarate (Symbicort 80/4.5mcg -) 1 puff IH BID [facility] Last Admin: 02/09/19 09:17 Dose: 1 puff Gabapentin (Neurontin -) 300 mg PO TID [facility] Last Admin: 02/09/19 14:16 Dose: 300 mg Insulin Aspart (Novolog Vial Sliding Scale -) 1 vial SQ ACHS [facility]; Protocol Last Admin: 02/09/19 11:46 Dose: 3 units Insulin Detemir (Levemir Vial) 20 units SQ AM [facility] Last Admin: 02/09/19 06:09 Dose: 20 units Lactic Acid (Lac-Hydrin 12) 1 applic TP BID [facility] Last Admin: 02/09/19 09:17 Dose: 1 applic Quetiapine Fumarate (Seroquel -) 200 mg PO TID [facility] Last Admin: 02/09/19 14:16 Dose: 200 mg Triamcinolone Acetonide (Aristocort 0.5% Cream -) 1 applic TP BID [facility] Last Admin: 02/09/19 09:17 Dose: 1 applic Venlafaxine HCl (Effexor Xr -) 150 mg PO DAILY@0800 [facility] Last Admin: 02/09/19 08:07 Dose: 150 mg Gen: NAD at rest Heart: RRR Lung: decreased breath sounds at the bases Abd: soft, nontender Ext: RLE dressed Laboratory Results - last 24 hr 02/08/19 02/08/19 02/09/19 16:33 21:29 05:50 POC Glucometer 173 187 281 02/09/19 11:17 POC Glucometer 169 A/P Diabetic Ketoacidosis resolved COPD Acute Kidney Injury improving Cellulitis HTN - Patient is refusing CT chest - ABX per ID - Local wound care - inhaled bronchodilators - O2 as needed - rehab/PT - outpt PFTs, CT chest if patient is willing - DVT prophylaxis - DC planning Dr Momin
--- NOTE | 2019-02-09 15:28 | PN ---
Progress Note, Physician History of Present Illness: Pt seen and examined at bedside. She is awake and alert. She denies shortness of breath. - Current Medication List Current Medications: Active Medications Acetaminophen (Tylenol -) 650 mg PO Q6H PRN PRN Reason: PAIN OR FEVER Last Admin: 02/06/19 14:44 Dose: 650 mg Albuterol Sulfate (Ventolin Hfa Inhaler -) 2 puff IH RQID [facility] Last Admin: 02/09/19 11:47 Dose: 2 puff Amoxicillin/Clavulanate Potassium (Augmentin - 875mg Tablet) 1 tab PO BID@0800, 1730 [facility] Last Admin: 02/09/19 08:07 Dose: 1 tab Budesonide/Formoterol Fumarate (Symbicort 80/4.5mcg -) 1 puff IH BID [facility] Last Admin: 02/09/19 09:17 Dose: 1 puff Gabapentin (Neurontin -) 300 mg PO TID [facility] Last Admin: 02/09/19 14:16 Dose: 300 mg Insulin Aspart (Novolog Vial Sliding Scale -) 1 vial SQ ACHS [facility]; Protocol Last Admin: 02/09/19 11:46 Dose: 3 units Insulin Detemir (Levemir Vial) 20 units SQ AM [facility] Last Admin: 02/09/19 06:09 Dose: 20 units Lactic Acid (Lac-Hydrin 12) 1 applic TP BID [facility] Last Admin: 02/09/19 09:17 Dose: 1 applic Quetiapine Fumarate (Seroquel -) 200 mg PO TID [facility] Last Admin: 02/09/19 14:16 Dose: 200 mg Triamcinolone Acetonide (Aristocort 0.5% Cream -) 1 applic TP BID [facility] Last Admin: 02/09/19 09:17 Dose: 1 applic Venlafaxine HCl (Effexor Xr -) 150 mg PO DAILY@0800 [facility] Last Admin: 02/09/19 08:07 Dose: 150 mg - Objective Vital Signs: Vital Signs Temperature 98.8 F 02/09/19 10:00 Pulse Rate 90 02/09/19 10:00 Respiratory Rate 20 02/09/19 10:00 Blood Pressure 92/56 L 02/09/19 10:00 O2 Sat by Pulse Oximetry (%) 96 02/09/19 09:00 Constitutional: Yes: Calm Eyes: Yes: Conjunctiva Clear HENT: Yes: Atraumatic Neck: Yes: Supple Cardiovascular: Yes: S1, S2 Respiratory: Yes: CTA Bilaterally Gastrointestinal: Yes: Soft Genitourinary: Yes: WNL Musculoskeletal: Yes: WNL Edema: No Wound/Incision: Yes: Dressing Dry and Intact Neurological: Yes: Oriented Psychiatric: Yes: Oriented Labs: CBC, BMP 02/08/19 07:33 02/08/19 07:33 Problem List - Problems (1) COPD (chronic obstructive pulmonary disease) Code(s): J44.9 - CHRONIC OBSTRUCTIVE PULMONARY DISEASE, UNSPECIFIED (2) Hyperkalemia Code(s): E87.5 - HYPERKALEMIA (3) ELIZABETH (acute kidney injury) Code(s): N17.9 - ACUTE KIDNEY FAILURE, UNSPECIFIED Assessment/Plan Current Medications Generic Name Dose Route Start Last Admin Trade Name Freq PRN Reason Stop Dose Admin Acetaminophen 650 mg 01/27/19 03:09 02/06/19 14:44 Tylenol - PO 650 mg Q6H PRN Administration PAIN OR FEVER Albuterol Sulfate 2 puff 01/27/19 20:00 02/09/19 11:47 Ventolin Hfa Inhaler - IH 2 puff RQID [facility] Administration Amoxicillin/Clavulanate Potassium 1 tab 02/05/19 17:30 02/09/19 08:07 Augmentin - 875mg Tablet PO 1 tab BID@0800,1730 [facility] Administration Budesonide/Formoterol Fumarate 1 puff 01/27/19 10:00 02/09/19 09:17 Symbicort 80/4.5mcg - IH 1 puff BID [facility] Administration Gabapentin 300 mg 01/27/19 14:00 02/09/19 14:16 Neurontin - PO 300 mg TID [facility] Administration Insulin Aspart 1 vial 02/03/19 22:00 02/09/19 11:46 Novolog Vial Sliding Scale - SQ 3 units ACHS [facility] Administration Protocol Insulin Detemir 20 units 02/04/19 07:00 02/09/19 06:09 Levemir Vial SQ 20 units AM [facility] Administration Lactic Acid 1 applic 01/28/19 11:00 02/09/19 09:17 Lac-Hydrin 12 TP 1 applic BID [facility] Administration Quetiapine Fumarate 200 mg 02/01/19 14:00 02/09/19 14:16 Seroquel - PO 200 mg TID [facility] Administration Triamcinolone Acetonide 1 applic 01/28/19 11:00 02/09/19 09:17 Aristocort 0.5% Cream - TP 1 applic BID [facility] Administration Venlafaxine HCl 150 mg 01/27/19 08:00 02/09/19 08:07 Effexor Xr - PO 150 mg DAILY@0800 [facility] Administration Impression 1. CKD 2. HTN 3. s/p fall 4. DM 5. ELIZABETH 6. hyperkalemia Plan - no new labs - renal function stable - outpt follow up - cont wound care to leg - avoid nsaids - avoid nephrotoxins - will follow PRN
[2019-02-09] MEDS ORDERED: INSULIN (NOVOLOG) ASPART 100 UNITS/ML 10ML VIAL ONE ×2 (18:29→21:08)
[2019-02-10] MEDS: QUEtiapine FUMARATE 200 MG TABLET PO SCH ×3 (06:10→22:18)
[2019-02-10] MEDS: GABAPENTIN 300 MG CAPSULE (FP) PO SCH ×3 (06:10→22:18)
[2019-02-10] MEDS: INSULIN SLIDING SCALE (NOVOLOG) 1 VIAL SQ SCH ×4 (06:10→22:18)
[2019-02-10] MEDS: INSULIN (LEVEMIR) 100 UNITS/ML UNITS SQ SCH (06:11)
[2019-02-10] MEDS: VENLAFAXINE HCL 75 MG E.R. CAPSULES (FP) PO SCH (08:00)
[2019-02-10] MEDS: ALBUTEROL SO4 8 GM HFA INHALER IH SCH ×4 (08:00→22:17)
[2019-02-10] MEDS: AMOX TR/POT CLAV 875MG/125MG TABLETS (FP) PO SCH ×2 (08:00→17:00)
[2019-02-10] MEDS: AMMONIUM LACTATE 12% LOTION 225 GM BOTTLE TP SCH ×2 (09:09→22:18)
[2019-02-10] MEDS: TRIAMCINOLONE ACET 0.5% CREAM 15 GM TUBE TP SCH ×2 (09:09→22:17)
[2019-02-10] MEDS: BUDESONIDE/FORMETEROL FUMARATE 80/4.5 mcg INHALER IH SCH ×2 (09:10→22:20)
--- NOTE | 2019-02-10 10:29 | PN ---
Progress Note (short form) - Note Progress Note: Resting in bed in NAD on RA. Denies shortness of breath or cough. Intake & Output 02/07/19 02/08/19 02/09/19 02/10/19 23:59 23:59 23:59 23:59 Intake Total 920 240 620 200 Output Total 1 Balance 920 240 619 200 Last Vital Signs Temp Pulse Resp BP Pulse Ox 99.8 F H 84 20 100/46 L 96 02/10/19 10:00 02/10/19 10:00 02/10/19 10:00 02/10/19 10:00 02/09/19 21:00 Active Medications Acetaminophen (Tylenol -) 650 mg PO Q6H PRN PRN Reason: PAIN OR FEVER Last Admin: 02/06/19 14:44 Dose: 650 mg Albuterol Sulfate (Ventolin Hfa Inhaler -) 2 puff IH RQID [facility] Last Admin: 02/10/19 08:00 Dose: 2 puff Amoxicillin/Clavulanate Potassium (Augmentin - 875mg Tablet) 1 tab PO BID@0800, 1730 [facility] Last Admin: 02/10/19 08:00 Dose: 1 tab Budesonide/Formoterol Fumarate (Symbicort 80/4.5mcg -) 1 puff IH BID [facility] Last Admin: 02/10/19 09:10 Dose: 1 puff Gabapentin (Neurontin -) 300 mg PO TID [facility] Last Admin: 02/10/19 06:10 Dose: 300 mg Insulin Aspart (Novolog Vial Sliding Scale -) 1 vial SQ ACHS [facility]; Protocol Last Admin: 02/10/19 06:10 Dose: 5 units Insulin Detemir (Levemir Vial) 20 units SQ AM [facility] Last Admin: 02/10/19 06:11 Dose: 20 units Lactic Acid (Lac-Hydrin 12) 1 applic TP BID [facility] Last Admin: 02/10/19 09:09 Dose: 1 applic Quetiapine Fumarate (Seroquel -) 200 mg PO TID [facility] Last Admin: 02/10/19 06:10 Dose: 200 mg Triamcinolone Acetonide (Aristocort 0.5% Cream -) 1 applic TP BID [facility] Last Admin: 02/10/19 09:09 Dose: 1 applic Venlafaxine HCl (Effexor Xr -) 150 mg PO DAILY@0800 [facility] Last Admin: 02/10/19 08:00 Dose: 150 mg Gen: NAD at rest Heart: RRR Lung: decreased breath sounds at the bases Abd: soft, nontender Ext: RLE dressed Laboratory Results - last 24 hr 02/09/19 02/09/19 02/09/19 11:17 16:46 21:44 POC Glucometer 169 135 185 02/10/19 06:09 POC Glucometer 297 A/P Diabetic Ketoacidosis resolved COPD Acute Kidney Injury improving Cellulitis HTN - Patient is refusing CT chest - ABX per ID - Local wound care - inhaled bronchodilators - O2 as needed - rehab/PT - outpt PFTs, CT chest if patient is willing - DVT prophylaxis - DC planning Dr Momin
--- NOTE | 2019-02-10 12:17 | PN ---
Progress Note, Physician Chief Complaint: Cellulitis DM ELIZABETH History of Present Illness: Previous notes and events reviewed awake and alert NAD continue with RLE pain Leukocytosis low grade fever RLE with erythema and warm to touch - Current Medication List Current Medications: Active Medications Acetaminophen (Tylenol -) 650 mg PO Q6H PRN PRN Reason: PAIN OR FEVER Last Admin: 02/06/19 14:44 Dose: 650 mg Albuterol Sulfate (Ventolin Hfa Inhaler -) 2 puff IH RQID [facility] Last Admin: 02/10/19 11:49 Dose: 2 puff Amoxicillin/Clavulanate Potassium (Augmentin - 875mg Tablet) 1 tab PO BID@0800, 1730 [facility] Last Admin: 02/10/19 08:00 Dose: 1 tab Budesonide/Formoterol Fumarate (Symbicort 80/4.5mcg -) 1 puff IH BID [facility] Last Admin: 02/10/19 09:10 Dose: 1 puff Gabapentin (Neurontin -) 300 mg PO TID [facility] Last Admin: 02/10/19 06:10 Dose: 300 mg Insulin Aspart (Novolog Vial Sliding Scale -) 1 vial SQ ACHS [facility]; Protocol Last Admin: 02/10/19 11:48 Dose: 5 units Insulin Detemir (Levemir Vial) 20 units SQ AM [facility] Last Admin: 02/10/19 06:11 Dose: 20 units Lactic Acid (Lac-Hydrin 12) 1 applic TP BID [facility] Last Admin: 02/10/19 09:09 Dose: 1 applic Quetiapine Fumarate (Seroquel -) 200 mg PO TID [facility] Last Admin: 02/10/19 06:10 Dose: 200 mg Triamcinolone Acetonide (Aristocort 0.5% Cream -) 1 applic TP BID [facility] Last Admin: 02/10/19 09:09 Dose: 1 applic Venlafaxine HCl (Effexor Xr -) 150 mg PO DAILY@0800 [facility] Last Admin: 02/10/19 08:00 Dose: 150 mg - Objective Vital Signs: Vital Signs Temperature 99.8 F H 02/10/19 10:00 Pulse Rate 84 02/10/19 10:00 Respiratory Rate 20 02/10/19 10:00 Blood Pressure 100/46 L 02/10/19 10:00 O2 Sat by Pulse Oximetry (%) 96 02/09/19 21:00 Constitutional: Yes: No Distress, Calm Eyes: Yes: Conjunctiva Clear HENT: Yes: Atraumatic Cardiovascular: Yes: Regular Rate and Rhythm Respiratory: Yes: Regular, CTA Bilaterally Gastrointestinal: Yes: Normal Bowel Sounds, Soft Musculoskeletal: Yes: Muscle Weakness Extremities: Yes: Erythema (RLE), Other (RLE warm to touch) Edema: Yes Integumentary: Yes: Erythema (RLE) Wound/Incision: Yes: Dressing Dry and Intact Neurological: Yes: Alert, Oriented Psychiatric: Yes: Alert, Oriented Labs: CBC, BMP 02/08/19 07:33 02/08/19 07:33 Microbiology 01/26/19 18:50 Blood - Peripheral Venous Blood Culture - Final NO GROWTH AFTER 5 DAYS INCUBATION 01/26/19 18:50 Blood - Peripheral Venous Blood Culture - Final NO GROWTH AFTER 5 DAYS INCUBATION Problem List - Problems (1) COPD (chronic obstructive pulmonary disease) Assessment/Plan: -Pulm on board -keep SpO2 >90% -O2 via NC -Symbicort -Bronchodilators Code(s): J44.9 - CHRONIC OBSTRUCTIVE PULMONARY DISEASE, UNSPECIFIED (2) Cellulitis Assessment/Plan: -ID on board -Leukocytosis -low grade temp -Vascular consult -Augmentin -BC neg -daily dressing changes -Vascular US RLE shows no DVT -pain control Code(s): L03.90 - CELLULITIS, UNSPECIFIED (3) DKA (diabetic ketoacidoses) Assessment/Plan: -Endocrinology on board -Levemir BID -ISS -HgA1c 13.0% -Anion gap 18~9 -Beta-Hydrox 88.0 Code(s): E11.10 - TYPE 2 DIABETES MELLITUS WITH KETOACIDOSIS WITHOUT COMA Qualifiers: Diabetes mellitus type: type 2 Diabetes mellitus complication detail: without coma Qualified Code(s): E11.10 - Type 2 diabetes mellitus with ketoacidosis without coma (4) Hyperkalemia Assessment/Plan: -K 4.9 -resolved -monitor electrolytes and replete as needed Code(s): E87.5 - HYPERKALEMIA (5) Weakness Assessment/Plan: -PT -fall precaution Code(s): R53.1 - WEAKNESS (6) ELIZABETH (acute kidney injury) Assessment/Plan: -BUN/Cr 17.1/1.1 -Renal on board Code(s): N17.9 - ACUTE KIDNEY FAILURE, UNSPECIFIED (7) Diabetes Assessment/Plan: -Endocrinology on board -Levemir BID -ISS -HgA1c 13.0% -Anion gap 18~9 -Beta-Hydrox 88.0 -dietary consult -diabetic diet -patient is extremely non-compliant with medication regimen Code(s): E11.9 - TYPE 2 DIABETES MELLITUS WITHOUT COMPLICATIONS Qualifiers: Diabetes mellitus type: type 2 (8) Fall Assessment/Plan: -PT -fall risk precaution Code(s): W19.XXXA - UNSPECIFIED FALL, INITIAL ENCOUNTER (9) Depression Assessment/Plan: -Effexor -Psych consult Code(s): F32.9 - MAJOR DEPRESSIVE DISORDER, SINGLE EPISODE, UNSPECIFIED Assessment/Plan see problem list dvt ppx when switched to PO antibiotics begin discharge planning, will need SNF placement when discharged due to non-compliance with DM and needing aggressive wound care
[2019-02-10] MEDS: ACETAMINOPHEN 325 MG TABLET (FP) PO PRN (13:44)
[2019-02-10] MEDS ORDERED: INSULIN (NOVOLOG) ASPART 100 UNITS/ML 10ML VIAL ONE ×2 (17:08→21:55)
[2019-02-11] MEDS: QUEtiapine FUMARATE 200 MG TABLET PO SCH ×3 (06:21→21:19)
[2019-02-11] MEDS: GABAPENTIN 300 MG CAPSULE (FP) PO SCH ×3 (06:21→21:19)
[2019-02-11] MEDS: INSULIN SLIDING SCALE (NOVOLOG) 1 VIAL SQ SCH ×4 (06:22→21:19)
[2019-02-11] MEDS: INSULIN (LEVEMIR) 100 UNITS/ML UNITS SQ SCH (06:23)
[2019-02-11] MEDS ORDERED: INSULIN (LEVEMIR) 100 UNITS/ML UNITS SQ ONE (06:54)
[2019-02-11] MEDS ORDERED: INSULIN (NOVOLOG) ASPART 100 UNITS/ML 10ML VIAL ONE (06:54)
[2019-02-11 07:28] LABS: HEMATOCRIT 28.6 % (32.4-45.2); HEMOGLOBIN 9.2 GM/dL (10.7-15.3); MCH 28.1 pg (25.7-33.7); MCHC 32.2 g/dl (32.0-36.0); MEAN CELL VOLUME 87.4 fl (80-96); MEAN PLT VOLUME 8.1 fl (7.5-11.1); PLATELET COUNT 334 K/MM3 (134-434); RBC 3.27 M/mm3 (3.60-5.2); RDW 13.6 % (11.6-15.6); WHITE BLOOD COUNT 9.5 K/mm3 (4.0-10.0)
[2019-02-11 07:59] LABS: ALBUMIN 2.3 g/dl (3.4-5.0); BILIRUBIN,TOTAL 0.3 mg/dL (0.2-1); BLOOD UREA NITROGEN 34.3 mg/dL (7-18); CALCIUM 8.7 mg/dL (8.5-10.1); CREATININE 1.3 mg/dL (0.55-1.3); POTASSIUM 4.7 mmol/L (3.5-5.1); TOT PROT 6.9 g/dl (6.4-8.2)
[2019-02-11] MEDS: BUDESONIDE/FORMETEROL FUMARATE 80/4.5 mcg INHALER IH SCH ×2 (09:56→21:19)
[2019-02-11] MEDS: AMOX TR/POT CLAV 875MG/125MG TABLETS (FP) PO SCH ×2 (09:57→17:14)
[2019-02-11] MEDS: ALBUTEROL SO4 8 GM HFA INHALER IH SCH ×4 (09:57→19:52)
[2019-02-11] MEDS: VENLAFAXINE HCL 75 MG E.R. CAPSULES (FP) PO SCH (09:57)
[2019-02-11] MEDS: TRIAMCINOLONE ACET 0.5% CREAM 15 GM TUBE TP SCH ×2 (09:58→21:20)
[2019-02-11] MEDS: AMMONIUM LACTATE 12% LOTION 225 GM BOTTLE TP SCH ×2 (09:58→21:20)
--- NOTE | 2019-02-11 10:22 | PN ---
Progress Note (short form) - Note Progress Note: Resting in bed in NAD on RA. Denies shortness of breath or cough. Still with some RLE discomfort. Intake & Output 02/08/19 02/09/19 02/10/19 02/11/19 23:59 23:59 23:59 23:59 Intake Total 240 620 620 177 Output Total 1 Balance 240 619 620 177 Last Vital Signs Temp Pulse Resp BP Pulse Ox 98.1 F 93 H 18 103/49 L 96 02/11/19 05:59 02/11/19 05:59 02/11/19 05:59 02/11/19 05:59 02/09/19 21:00 Active Medications Acetaminophen (Tylenol -) 650 mg PO Q6H PRN PRN Reason: PAIN OR FEVER Last Admin: 02/10/19 13:44 Dose: 650 mg Albuterol Sulfate (Ventolin Hfa Inhaler -) 2 puff IH RQID [facility] Last Admin: 02/11/19 09:57 Dose: 2 puff Amoxicillin/Clavulanate Potassium (Augmentin - 875mg Tablet) 1 tab PO BID@0800, 1730 [facility] Last Admin: 02/11/19 09:57 Dose: 1 tab Budesonide/Formoterol Fumarate (Symbicort 80/4.5mcg -) 1 puff IH BID [facility] Last Admin: 02/11/19 09:56 Dose: 1 puff Gabapentin (Neurontin -) 300 mg PO TID [facility] Last Admin: 02/11/19 06:21 Dose: 300 mg Insulin Aspart (Novolog Vial Sliding Scale -) 1 vial SQ ACHS [facility]; Protocol Last Admin: 02/11/19 06:22 Dose: 5 units Insulin Detemir (Levemir Vial) 20 units SQ AM [facility] Last Admin: 02/11/19 06:23 Dose: 20 units Lactic Acid (Lac-Hydrin 12) 1 applic TP BID [facility] Last Admin: 02/11/19 09:58 Dose: 1 applic Quetiapine Fumarate (Seroquel -) 200 mg PO TID [facility] Last Admin: 02/11/19 06:21 Dose: 200 mg Triamcinolone Acetonide (Aristocort 0.5% Cream -) 1 applic TP BID [facility] Last Admin: 02/11/19 09:58 Dose: 1 applic Venlafaxine HCl (Effexor Xr -) 150 mg PO DAILY@0800 [facility] Last Admin: 02/11/19 09:57 Dose: 150 mg Gen: NAD at rest Heart: RRR Lung: decreased breath sounds at the bases Abd: soft, nontender Ext: RLE dressed Laboratory Results - last 24 hr 02/10/19 02/10/19 02/10/19 11:29 16:54 22:15 WBC RBC Hgb Hct MCV MCH MCHC RDW Plt Count MPV Sodium Potassium Chloride Carbon Dioxide Anion Gap BUN Creatinine Est GFR (CKD-EPI)AfAm Est GFR (CKD-EPI)NonAf POC Glucometer 290 184 177 Random Glucose Calcium Total Bilirubin AST ALT Alkaline Phosphatase Total Protein Albumin 02/11/19 02/11/19 02/11/19 06:18 06:33 06:33 WBC 9.5 RBC 3.27 L Hgb 9.2 L Hct 28.6 L MCV 87.4 MCH 28.1 MCHC 32.2 RDW 13.6 Plt Count 334 MPV 8.1 Sodium 136 Potassium 4.7 Chloride 102 Carbon Dioxide 28 Anion Gap 6 L BUN 34.3 H Creatinine 1.3 Est GFR (CKD-EPI)AfAm 48.47 Est GFR (CKD-EPI)NonAf 41.82 POC Glucometer 258 Random Glucose 263 H Calcium 8.7 Total Bilirubin 0.3 AST 24 ALT 26 Alkaline Phosphatase 130 H Total Protein 6.9 Albumin 2.3 L A/P Diabetic Ketoacidosis resolved COPD Acute Kidney Injury improving Cellulitis HTN - Patient is refusing CT chest - ABX per ID - Local wound care - inhaled bronchodilators - O2 as needed - rehab/PT - outpt PFTs, CT chest if patient is willing - DVT prophylaxis - DC planning Dr Momin
--- NOTE | 2019-02-11 10:45 | DS ---
Physical Examination Vital Signs: Vital Signs Temperature 98.1 F 02/11/19 05:59 Pulse Rate 93 H 02/11/19 05:59 Respiratory Rate 18 02/11/19 05:59 Blood Pressure 103/49 L 02/11/19 05:59 O2 Sat by Pulse Oximetry (%) 96 02/09/19 21:00 Findings/Remarks: Laboratory Results - last 24 hr 02/10/19 02/10/19 02/11/19 16:54 22:15 06:18 WBC RBC Hgb Hct MCV MCH MCHC RDW Plt Count MPV Sodium Potassium Chloride Carbon Dioxide Anion Gap BUN Creatinine Est GFR (CKD-EPI)AfAm Est GFR (CKD-EPI)NonAf POC Glucometer 184 177 258 Random Glucose Calcium Total Bilirubin AST ALT Alkaline Phosphatase Total Protein Albumin 02/11/19 02/11/19 06:33 06:33 WBC 9.5 RBC 3.27 L Hgb 9.2 L Hct 28.6 L MCV 87.4 MCH 28.1 MCHC 32.2 RDW 13.6 Plt Count 334 MPV 8.1 Sodium 136 Potassium 4.7 Chloride 102 Carbon Dioxide 28 Anion Gap 6 L BUN 34.3 H Creatinine 1.3 Est GFR (CKD-EPI)AfAm 48.47 Est GFR (CKD-EPI)NonAf 41.82 POC Glucometer Random Glucose 263 H Calcium 8.7 Total Bilirubin 0.3 AST 24 ALT 26 Alkaline Phosphatase 130 H Total Protein 6.9 Albumin 2.3 L Active Medications Generic Name Dose Route Start Last Admin Trade Name Freq PRN Reason Stop Dose Admin Acetaminophen 650 mg 01/27/19 03:09 02/10/19 13:44 Tylenol - PO 650 mg Q6H PRN Administration PAIN OR FEVER Albuterol Sulfate 2 puff 01/27/19 20:00 02/11/19 09:57 Ventolin Hfa Inhaler - IH 2 puff RQID [facility] Administration Amoxicillin/Clavulanate Potassium 1 tab 02/05/19 17:30 02/11/19 09:57 Augmentin - 875mg Tablet PO 1 tab BID@0800,1730 [facility] Administration Budesonide/Formoterol Fumarate 1 puff 01/27/19 10:00 02/11/19 09:56 Symbicort 80/4.5mcg - IH 1 puff BID [facility] Administration Gabapentin 300 mg 01/27/19 14:00 02/11/19 06:21 Neurontin - PO 300 mg TID [facility] Administration Insulin Aspart 1 vial 02/03/19 22:00 02/11/19 06:22 Novolog Vial Sliding Scale - SQ 5 units ACHS [facility] Administration Protocol Insulin Detemir 20 units 02/04/19 07:00 02/11/19 06:23 Levemir Vial SQ 20 units AM [facility] Administration Lactic Acid 1 applic 01/28/19 11:00 02/11/19 09:58 Lac-Hydrin 12 TP 1 applic BID [facility] Administration Quetiapine Fumarate 200 mg 02/01/19 14:00 02/11/19 06:21 Seroquel - PO 200 mg TID [facility] Administration Triamcinolone Acetonide 1 applic 01/28/19 11:00 02/11/19 09:58 Aristocort 0.5% Cream - TP 1 applic BID [facility] Administration Venlafaxine HCl 150 mg 01/27/19 08:00 02/11/19 09:57 Effexor Xr - PO 150 mg DAILY@0800 [facility] Administration Microbiology 01/26/19 18:50 Blood - Peripheral Venous Blood Culture - Final NO GROWTH AFTER 5 DAYS INCUBATION 01/26/19 18:50 Blood - Peripheral Venous Blood Culture - Final NO GROWTH AFTER 5 DAYS INCUBATION Constitutional: Yes: No Distress, Calm Eyes: Yes: Conjunctiva Clear HENT: Yes: Atraumatic Cardiovascular: Yes: Regular Rate and Rhythm Respiratory: Yes: Regular, CTA Bilaterally Gastrointestinal: Yes: Normal Bowel Sounds, Soft Musculoskeletal: Yes: Muscle Weakness Extremities: Yes: WNL Edema: Yes Edema: RLE: Trace Integumentary: Yes: Erythema (RLE) Wound/Incision: Yes: Open to air, Reddened (RLE) Neurological: Yes: Alert, Oriented Psychiatric: Yes: Alert, Oriented Labs: CBC, BMP 02/11/19 06:33 02/11/19 06:33 Discharge Summary Problems reviewed: Yes Reason For Visit: CELLULITIS, DIABETIC KETOACIDOSIS ASSOCIATED WITH Current Active Problems COPD (chronic obstructive pulmonary disease) (Acute) Cellulitis (Acute) DKA (diabetic ketoacidoses) (Acute) DKA, type 2, not at goal (Acute) Dermatitis (Acute) Edema (Acute) Electrolyte abnormality (Acute) Hyperkalemia (Acute) Hypermagnesemia (Acute) Schizoaffective disorder, chronic condition (Acute) Status post fall (Acute) Weakness (Acute) Hospital Course: (1) COPD (chronic obstructive pulmonary disease) Assessment/Plan: -Pulm on board -keep SpO2 >90% -O2 via NC -Symbicort -Bronchodilators Code(s): J44.9 - CHRONIC OBSTRUCTIVE PULMONARY DISEASE, UNSPECIFIED (2) Cellulitis--Wound on LE Assessment/Plan: -ID on board -Leukocytosis -afebrile -Augmentin -BC neg -daily dressing changes -Vascular follow up -Duplex no dvt -pain control Code(s): L03.90 - CELLULITIS, UNSPECIFIED (3) DKA (diabetic ketoacidoses) Assessment/Plan: -Endocrinology on board -Levemir BID -ISS -HgA1c 13.0% -Pt is non compliant Code(s): E11.10 - TYPE 2 DIABETES MELLITUS WITH KETOACIDOSIS WITHOUT COMA Qualifiers: Diabetes mellitus type: type 2 Diabetes mellitus complication detail: without coma Qualified Code(s): E11.10 - Type 2 diabetes mellitus with ketoacidosis without coma (4) Hyperkalemia Assessment/Plan: -resolved -monitor electrolytes and replete as needed Code(s): E87.5 - HYPERKALEMIA (5) Weakness Assessment/Plan: -PT -fall precaution Code(s): R53.1 - WEAKNESS (6) ELIZABETH (acute kidney injury) Assessment/Plan: -Renal on board Code(s): N17.9 - ACUTE KIDNEY FAILURE, UNSPECIFIED (7) Diabetes Assessment/Plan: -Endocrinology on board -Levemir BID -ISS -HgA1c 13.0% -dietary consult -diabetic diet -patient is extremely non-compliant with medication regimen Code(s): E11.9 - TYPE 2 DIABETES MELLITUS WITHOUT COMPLICATIONS Qualifiers: Diabetes mellitus type: type 2 (8) Fall Assessment/Plan: -PT -fall risk precaution Code(s): W19.XXXA - UNSPECIFIED FALL, INITIAL ENCOUNTER (9) Depression Assessment/Plan: -Effexor -Psych consult Code(s): F32.9 - MAJOR DEPRESSIVE DISORDER, SINGLE EPISODE, UNSPECIFIED dc planning pt not safe to go home and refusing snf 68 y/o F hx of HTN, T2DM, Anxiety,depression,COPD and non-compliance with medication regimen arrived to Emergency room at [facility] post fall at home. Patient is not the best historian, reports falling on the floor while getting up from the couch. She fell on her back and denies hitting her head. Patient complain of dizziness, headache, nausea and right lower leg pain. She reports being on the floor for about an hour before calling EMS. She has been able to ambulate while here in the ER. She denies LOC, vomiting, diarrhea, bloody stools, fevers , chills. Patient states she lives alone. While in patient evaluated by Vascular and recommend wound debridement but patient refused. Patient was evaluated by ID and received IV ABT which is now switched to oral. Recommend patient to be discharged to SNF for aggressive wound care needed to RLE. Patient adamantly refused and wishes to go home. Patient will be discharged home with [facility] visiting nurse services for wound care of RLE. Patient will need to follow up in [facility] wound care clinic on the 5th floor. Condition: Stable - Instructions Diet, Activity, Other Instructions: must see your doctor next week dressing changes daily [facility] follow up with [facility] [phone] continue with medication as prescribed return to ER if develop severe pain, respiratory distress, chest pain, fever, chills Referrals: Mamie Mckenzie [Primary Care Provider] - 1 Week Disposition: VNS/HOME HEALTH CARE - Home Medications Comprehensive Discharge Medication List: Ambulatory Orders Gabapentin [Neurontin -] 300 mg PO Q8H PRN 03/28/17 Venlafaxine HCl ER [Effexor Xr -] 150 mg PO DAILY 03/28/17 Acetaminophen [Tylenol .Regular Strength -] 650 mg PO Q6H PRN tablet 09/06/18 Albuterol Sulfate [Albuterol Sulfate Hfa] 8.5 gm IH QID #3 [email or web address] 09/07/18 Budesonide/Formeterol Fumarate [SYMBICORT 80/4.5mcg -] 1 inh PO BID #1 cannister 09/07/18 Lactobacillus Acidophilus [Acidophilus] 1 each PO DAILY #30 capsule 09/27/18 Ammonium Lactate Lotion [Lac-Hydrin 12] 1 applic TP BID #1 bottle 02/08/19 Amox-Tr/K Cl [Augmentin 875-125mg Tablet -] 1 tab PO BID@0800,1730 #14 tablet 12 /26/19 Insulin (Levemir) [Levemir Vial] 25 units SQ AM #5 syringe 02/08/19 Triamcinolone 0.5% Cream [Aristocort 0.5% Cream -] 1 applic TP BID #60 grams
[2019-02-12] MEDS: GABAPENTIN 300 MG CAPSULE (FP) PO SCH ×3 (06:58→22:32)
[2019-02-12] MEDS: INSULIN (LEVEMIR) 100 UNITS/ML UNITS SQ SCH (06:58)
[2019-02-12] MEDS: QUEtiapine FUMARATE 200 MG TABLET PO SCH ×3 (06:58→22:32)
[2019-02-12] MEDS: INSULIN SLIDING SCALE (NOVOLOG) 1 VIAL SQ SCH ×4 (07:00→22:36)
[2019-02-12] MEDS: VENLAFAXINE HCL 75 MG E.R. CAPSULES (FP) PO SCH (08:11)
[2019-02-12] MEDS: AMOX TR/POT CLAV 875MG/125MG TABLETS (FP) PO SCH (08:11)
[2019-02-12] MEDS: ALBUTEROL SO4 8 GM HFA INHALER IH SCH ×4 (08:14→22:34)
--- NOTE | 2019-02-12 09:19 | DS ---
Physical Examination Vital Signs: Vital Signs Temperature 98.6 F 02/12/19 07:45 Pulse Rate 90 02/12/19 07:45 Respiratory Rate 16 02/12/19 07:45 Blood Pressure 113/53 L 02/12/19 07:45 O2 Sat by Pulse Oximetry (%) 96 02/09/19 21:00 Cardiovascular: Yes: S1, S2 Respiratory: Yes: Regular, CTA Bilaterally Gastrointestinal: Yes: Normal Bowel Sounds, Soft Wound/Incision: Yes: Reddened, Excoriated Labs: CBC, BMP 02/11/19 06:33 02/11/19 06:33 Discharge Summary Problems reviewed: Yes Reason For Visit: CELLULITIS, DIABETIC KETOACIDOSIS ASSOCIATED WITH Current Active Problems COPD (chronic obstructive pulmonary disease) (Acute) Cellulitis (Acute) DKA (diabetic ketoacidoses) (Acute) DKA, type 2, not at goal (Acute) Dermatitis (Acute) Edema (Acute) Electrolyte abnormality (Acute) Hyperkalemia (Acute) Hypermagnesemia (Acute) Schizoaffective disorder, chronic condition (Acute) Status post fall (Acute) Weakness (Acute) Hospital Course: (1) COPD (chronic obstructive pulmonary disease) Assessment/Plan: -Pulm on board -keep SpO2 >90% -O2 via NC -Symbicort -Bronchodilators Code(s): J44.9 - CHRONIC OBSTRUCTIVE PULMONARY DISEASE, UNSPECIFIED (2) Cellulitis--Wound on LE Assessment/Plan: -ID on board -Leukocytosis -afebrile -Augmentin -BC neg -daily dressing changes -Vascular follow up -Duplex no dvt -pain control Code(s): L03.90 - CELLULITIS, UNSPECIFIED (3) DKA (diabetic ketoacidoses) Assessment/Plan: -Endocrinology on board -Levemir BID -ISS -HgA1c 13.0% -Pt is non compliant Code(s): E11.10 - TYPE 2 DIABETES MELLITUS WITH KETOACIDOSIS WITHOUT COMA Qualifiers: Diabetes mellitus type: type 2 Diabetes mellitus complication detail: without coma Qualified Code(s): E11.10 - Type 2 diabetes mellitus with ketoacidosis without coma (4) Hyperkalemia Assessment/Plan: -resolved -monitor electrolytes and replete as needed Code(s): E87.5 - HYPERKALEMIA (5) Weakness Assessment/Plan: -PT -fall precaution Code(s): R53.1 - WEAKNESS (6) ELIZABETH (acute kidney injury) Assessment/Plan: -Renal on board Code(s): N17.9 - ACUTE KIDNEY FAILURE, UNSPECIFIED (7) Diabetes Assessment/Plan: -Endocrinology on board -Levemir BID -ISS -HgA1c 13.0% -dietary consult -diabetic diet -patient is extremely non-compliant with medication regimen Code(s): E11.9 - TYPE 2 DIABETES MELLITUS WITHOUT COMPLICATIONS Qualifiers: Diabetes mellitus type: type 2 (8) Fall Assessment/Plan: -PT -fall risk precaution Code(s): W19.XXXA - UNSPECIFIED FALL, INITIAL ENCOUNTER (9) Depression Assessment/Plan: -Effexor -Psych consult Code(s): F32.9 - MAJOR DEPRESSIVE DISORDER, SINGLE EPISODE, UNSPECIFIED dc planning pt not safe to go home and refusing snf 68 y/o F hx of HTN, T2DM, Anxiety,depression,COPD and non-compliance with medication regimen arrived to Emergency room at [facility] post fall at home. Patient is not the best historian, reports falling on the floor while getting up from the couch. She fell on her back and denies hitting her head. Patient complain of dizziness, headache, nausea and right lower leg pain. She reports being on the floor for about an hour before calling EMS. She has been able to ambulate while here in the ER. She denies LOC, vomiting, diarrhea, bloody stools, fevers , chills. Patient states she lives alone. While in patient evaluated by Vascular and recommend wound debridement but patient refused. Patient was evaluated by ID and received IV ABT which is now switched to oral. Recommend patient to be discharged to SNF for aggressive wound care needed to RLE. Patient adamantly refused and wishes to go home. Patient will be discharged home with [facility] visiting nurse services for wound care of RLE. Patient will need to follow up in [facility] wound care clinic on the 5th floor. Condition: Stable - Instructions Diet, Activity, Other Instructions: must see your doctor next week dressing changes daily [facility] follow up with [facility] Wound [facility] [phone] continue with medication as prescribed return to ER if develop severe pain, respiratory distress, chest pain, fever, chills Referrals: Mamie Mckenzie [Primary Care Provider] - 1 Week Disposition: VNS/HOME HEALTH CARE - Home Medications Comprehensive Discharge Medication List: Ambulatory Orders Gabapentin [Neurontin -] 300 mg PO Q8H PRN 03/28/17 Venlafaxine HCl ER [Effexor Xr -] 150 mg PO DAILY 03/28/17 Acetaminophen [Tylenol .Regular Strength -] 650 mg PO Q6H PRN tablet 09/06/18 Albuterol Sulfate [Albuterol Sulfate Hfa] 8.5 gm IH QID #3 hfa.aer.[id number] 09/07/18 Budesonide/Formeterol Fumarate [SYMBICORT 80/4.5mcg -] 1 inh PO BID #1 cannister 09/07/18 Lactobacillus Acidophilus [Acidophilus] 1 each PO DAILY #30 capsule 09/27/18 Ammonium Lactate Lotion [Lac-Hydrin 12] 1 applic TP BID #1 bottle 02/08/19 Amox-Tr/K Cl [Augmentin 875-125mg Tablet -] 1 tab PO BID@0800,1730 #14 tablet Insulin (Levemir) [Levemir Vial] 25 units SQ AM #5 syringe 02/08/19 Triamcinolone 0.5% Cream [Aristocort 0.5% Cream -] 1 applic TP BID #60 grams
[2019-02-12] MEDS: AMMONIUM LACTATE 12% LOTION 225 GM BOTTLE TP SCH ×2 (09:45→22:30)
[2019-02-12] MEDS: BUDESONIDE/FORMETEROL FUMARATE 80/4.5 mcg INHALER IH SCH ×2 (09:46→22:34)
[2019-02-12] MEDS: TRIAMCINOLONE ACET 0.5% CREAM 15 GM TUBE TP SCH ×2 (09:46→22:30)
--- NOTE | 2019-02-12 16:57 | PN ---
Progress Note, Physician History of Present Illness: Pt seen and examined at bedside. She has no complaints. She denies dysuria. - Current Medication List Current Medications: Active Medications Acetaminophen (Tylenol -) 650 mg PO Q6H PRN PRN Reason: PAIN OR FEVER Last Admin: 02/10/19 13:44 Dose: 650 mg Albuterol Sulfate (Ventolin Hfa Inhaler -) 2 puff IH RQID [facility] Last Admin: 02/12/19 16:09 Dose: 2 puff Amoxicillin/Clavulanate Potassium (Augmentin - 875mg Tablet) 1 tab PO BID@0800, 1730 [facility] Last Admin: 02/12/19 08:11 Dose: 1 tab Budesonide/Formoterol Fumarate (Symbicort 80/4.5mcg -) 1 puff IH BID [facility] Last Admin: 02/12/19 09:46 Dose: 1 puff Gabapentin (Neurontin -) 300 mg PO TID [facility] Last Admin: 02/12/19 13:13 Dose: 300 mg Insulin Aspart (Novolog Vial Sliding Scale -) 1 vial SQ ACHS [facility]; Protocol Last Admin: 02/12/19 11:49 Dose: 6 units Insulin Detemir (Levemir Vial) 20 units SQ AM [facility] Last Admin: 02/12/19 06:58 Dose: 20 units Lactic Acid (Lac-Hydrin 12) 1 applic TP BID [facility] Last Admin: 02/12/19 09:45 Dose: 1 applic Quetiapine Fumarate (Seroquel -) 200 mg PO TID [facility] Last Admin: 02/12/19 13:13 Dose: 200 mg Triamcinolone Acetonide (Aristocort 0.5% Cream -) 1 applic TP BID [facility] Last Admin: 02/12/19 09:46 Dose: 1 applic Venlafaxine HCl (Effexor Xr -) 150 mg PO DAILY@0800 [facility] Last Admin: 02/12/19 08:11 Dose: 150 mg - Objective Vital Signs: Vital Signs Temperature 98.9 F 02/12/19 14:57 Pulse Rate 98 H 02/12/19 14:57 Respiratory Rate 18 02/12/19 14:57 Blood Pressure 105/59 L 02/12/19 14:57 O2 Sat by Pulse Oximetry (%) 97 02/12/19 09:00 Constitutional: Yes: Calm Eyes: Yes: Conjunctiva Clear HENT: Yes: Atraumatic Neck: Yes: Supple Cardiovascular: Yes: S1, S2 Respiratory: Yes: CTA Bilaterally Gastrointestinal: Yes: Soft Genitourinary: Yes: WNL Musculoskeletal: Yes: WNL Edema: No Wound/Incision: Yes: Dressing Dry and Intact Neurological: Yes: Oriented Psychiatric: Yes: Oriented Labs: CBC, BMP 02/11/19 06:33 02/11/19 06:33 Problem List - Problems (1) COPD (chronic obstructive pulmonary disease) Code(s): J44.9 - CHRONIC OBSTRUCTIVE PULMONARY DISEASE, UNSPECIFIED (2) Hyperkalemia Code(s): E87.5 - HYPERKALEMIA (3) ELIZABETH (acute kidney injury) Code(s): N17.9 - ACUTE KIDNEY FAILURE, UNSPECIFIED Assessment/Plan Current Medications Generic Name Dose Route Start Last Admin Trade Name Freq PRN Reason Stop Dose Admin Acetaminophen 650 mg 01/27/19 03:09 02/10/19 13:44 Tylenol - PO 650 mg Q6H PRN Administration PAIN OR FEVER Albuterol Sulfate 2 puff 01/27/19 20:00 02/12/19 16:09 Ventolin Hfa Inhaler - IH 2 puff RQID [facility] Administration Amoxicillin/Clavulanate Potassium 1 tab 02/05/19 17:30 02/12/19 08:11 Augmentin - 875mg Tablet PO 1 tab BID@0800,1730 [facility] Administration Budesonide/Formoterol Fumarate 1 puff 01/27/19 10:00 02/12/19 09:46 Symbicort 80/4.5mcg - IH 1 puff BID [facility] Administration Gabapentin 300 mg 01/27/19 14:00 02/12/19 13:13 Neurontin - PO 300 mg TID [facility]IE Administration Insulin Aspart 1 vial 02/03/19 22:00 02/12/19 11:49 Novolog Vial Sliding Scale - SQ 6 units ACHS [facility]IE Administration Protocol Insulin Detemir 20 units 02/04/19 07:00 02/12/19 06:58 Levemir Vial SQ 20 units AM [facility]IE Administration Lactic Acid 1 applic 01/28/19 11:00 02/12/19 09:45 Lac-Hydrin 12 TP 1 applic BID [facility] Administration Quetiapine Fumarate 200 mg 02/01/19 14:00 02/12/19 13:13 Seroquel - PO 200 mg TID [facility]IE Administration Triamcinolone Acetonide 1 applic 01/28/19 11:00 02/12/19 09:46 Aristocort 0.5% Cream - TP 1 applic BID [facility] Administration Venlafaxine HCl 150 mg 01/27/19 08:00 02/12/19 08:11 Effexor Xr - PO 150 mg DAILY@0800 [facility] Administration Impression 1. CKD 2. HTN 3. s/p fall 4. DM 5. ELIZABETH 6. hyperkalemia Plan - reviewed labs from yesterday - renal function stable for now - can see in office - avoid nsaids - avoid nephrotoxins - will follow PRN
[2019-02-13] MEDS: GABAPENTIN 300 MG CAPSULE (FP) PO SCH ×3 (06:46→21:46)
[2019-02-13] MEDS: QUEtiapine FUMARATE 200 MG TABLET PO SCH ×3 (06:46→21:46)
[2019-02-13] MEDS: INSULIN SLIDING SCALE (NOVOLOG) 1 VIAL SQ SCH ×4 (06:47→21:46)
[2019-02-13] MEDS: INSULIN (LEVEMIR) 100 UNITS/ML UNITS SQ SCH (06:52)
[2019-02-13] MEDS: VENLAFAXINE HCL 75 MG E.R. CAPSULES (FP) PO SCH (10:47)
[2019-02-13] MEDS: TRIAMCINOLONE ACET 0.5% CREAM 15 GM TUBE TP SCH ×2 (10:50→21:46)
[2019-02-13] MEDS: BUDESONIDE/FORMETEROL FUMARATE 80/4.5 mcg INHALER IH SCH ×2 (10:50→21:47)
[2019-02-13] MEDS: ALBUTEROL SO4 8 GM HFA INHALER IH SCH ×2 (10:50→21:47)
[2019-02-13] MEDS: AMMONIUM LACTATE 12% LOTION 225 GM BOTTLE TP SCH ×2 (10:50→21:47)
--- NOTE | 2019-02-13 11:43 | PN ---
Progress Note, Physician Chief Complaint: DM ELIZABETH History of Present Illness: NAD Sitting at the edge of the bed Awaiting discharge, now is agreeable to SNF - Current Medication List Current Medications: Active Medications Acetaminophen (Tylenol -) 650 mg PO Q6H PRN PRN Reason: PAIN OR FEVER Last Admin: 02/10/19 13:44 Dose: 650 mg Albuterol Sulfate (Ventolin Hfa Inhaler -) 2 puff IH RQID [facility] Last Admin: 02/13/19 10:50 Dose: 2 puff Budesonide/Formoterol Fumarate (Symbicort 80/4.5mcg -) 1 puff IH BID [facility] Last Admin: 02/13/19 10:50 Dose: 1 puff Gabapentin (Neurontin -) 300 mg PO TID [facility] Last Admin: 02/13/19 06:46 Dose: 300 mg Insulin Aspart (Novolog Vial Sliding Scale -) 1 vial SQ ACHS [facility]; Protocol Last Admin: 02/13/19 11:32 Dose: 6 units Insulin Detemir (Levemir Vial) 20 units SQ AM [facility] Last Admin: 02/13/19 06:52 Dose: 20 units Lactic Acid (Lac-Hydrin 12) 1 applic TP BID [facility] Last Admin: 02/13/19 10:50 Dose: 1 applic Quetiapine Fumarate (Seroquel -) 200 mg PO TID [facility] Last Admin: 02/13/19 06:46 Dose: 200 mg Triamcinolone Acetonide (Aristocort 0.5% Cream -) 1 applic TP BID [facility] Last Admin: 02/13/19 10:50 Dose: 1 applic Venlafaxine HCl (Effexor Xr -) 150 mg PO DAILY@0800 [facility] Last Admin: 02/13/19 10:47 Dose: 150 mg - Objective Vital Signs: Vital Signs Temperature 97.4 F L 02/13/19 06:00 Pulse Rate 89 02/13/19 06:00 Respiratory Rate 18 02/13/19 06:00 Blood Pressure 112/58 L 02/13/19 06:00 O2 Sat by Pulse Oximetry (%) 97 02/12/19 09:00 Constitutional: Yes: Well Nourished, No Distress, Calm Cardiovascular: Yes: Regular Rate and Rhythm Respiratory: Yes: Regular Labs: CBC, BMP 02/11/19 06:33 12/29/19 06:33 Assessment/Plan (1) COPD (chronic obstructive pulmonary disease) Assessment/Plan: -Pulm on board -keep SpO2 >90% -O2 via NC -Symbicort -Bronchodilators Code(s): J44.9 - CHRONIC OBSTRUCTIVE PULMONARY DISEASE, UNSPECIFIED (2) Cellulitis Assessment/Plan: -ID on board -Leukocytosis -afebrile -Finished Augmentin -Seen by vascular surgery- recommended santyl with kerlix daily -BC neg -daily dressing changes -Vascular US RLE shows no DVT -pain control Code(s): L03.90 - CELLULITIS, UNSPECIFIED (3) DKA (diabetic ketoacidoses) Assessment/Plan: -Endocrinology on board -Levemir BID -ISS -HgA1c 13.0% -Pt is non compliant Code(s): E11.10 - TYPE 2 DIABETES MELLITUS WITH KETOACIDOSIS WITHOUT COMA Qualifiers: Diabetes mellitus type: type 2 Diabetes mellitus complication detail: without coma Qualified Code(s): E11.10 - Type 2 diabetes mellitus with ketoacidosis without coma (4) Hyperkalemia Assessment/Plan: -resolved -monitor electrolytes and replete as needed Code(s): E87.5 - HYPERKALEMIA (5) Weakness Assessment/Plan: -PT -fall precaution Code(s): R53.1 - WEAKNESS (6) ELIZABETH (acute kidney injury) Assessment/Plan: -Renal on board Code(s): N17.9 - ACUTE KIDNEY FAILURE, UNSPECIFIED (7) Diabetes Assessment/Plan: -Endocrinology on board -Levemir BID -ISS -HgA1c 13.0% -dietary consult -diabetic diet -patient is extremely non-compliant with medication regimen Code(s): E11.9 - TYPE 2 DIABETES MELLITUS WITHOUT COMPLICATIONS Qualifiers: Diabetes mellitus type: type 2 (8) Fall Assessment/Plan: -PT -fall risk precaution Code(s): W19.XXXA - UNSPECIFIED FALL, INITIAL ENCOUNTER (9) Depression Assessment/Plan: -Effexor -Psych consult Code(s): F32.9 - MAJOR DEPRESSIVE DISORDER, SINGLE EPISODE, UNSPECIFIED D/C SNF when authorized by insurance
--- NOTE | 2019-02-13 13:02 | PN ---
Progress Note (short form) - Note Progress Note: Asked to reevaluate the patients RLE wound. She was last seen 01/31 for this wound. Vital Signs Period Temp Pulse Resp BP Sys/Boothe Pulse Ox Last 24 Hr 97.4 F-98.9 F 89-106 18-18 96-112/54-59 GEN: A&0x3, NAD RLE: overall decreased swelling to the RLE. No longer with blister but has eshar (soft) with some necrotic tissue. Wound approximately 5 x 2 cm. The most inferior aspect seems a little boggy. No drainage noted with palpation. Surrounding erythema has improved. Some tendnerness with palpation. CBC, BMP 02/11/19 06:33 02/11/19 06:33 A/P: 68 yo female with RLE wound with some evidence of improvement. She remain afebrile with no leukocytosis. Blood cultures negative. Overall the wound looks improved but could benefit from santyl. The tissue is no longer a blister but more of a soft eschar/somewhat necrotic in parts and hopefully it will debrided with santyl and moist dressing changes. The inferior aspect feels boggy on palpation but no drainage noted. Case D/w Dr. Venegas and recommend to change dressing orders to santyl/moist dressing with kerlix. Oral antibiotics as per ID Follow up in wound clinic with Dr. Venegas
[2019-02-13] MEDS: COLLAGENASE CLOSTRIDIUM HIST. 30 GRAMS TUBE TP SCH (16:56)
--- NOTE | 2019-02-13 17:07 | PN ---
Progress Note, Physician History of Present Illness: Pt seen and examined. SHe denies fevers or chills. - Current Medication List Current Medications: Active Medications Acetaminophen (Tylenol -) 650 mg PO Q6H PRN PRN Reason: PAIN OR FEVER Last Admin: 02/10/19 13:44 Dose: 650 mg Albuterol Sulfate (Ventolin Hfa Inhaler -) 2 puff IH RQID [facility] Last Admin: 02/13/19 10:50 Dose: 2 puff Budesonide/Formoterol Fumarate (Symbicort 80/4.5mcg -) 1 puff IH BID [facility] Last Admin: 02/13/19 10:50 Dose: 1 puff Collagenase (Santyl -) 1 applic TP DAILY [facility]; Protocol Last Admin: 02/13/19 16:56 Dose: 1 applic Gabapentin (Neurontin -) 300 mg PO TID [facility] Last Admin: 02/13/19 14:07 Dose: 300 mg Insulin Aspart (Novolog Vial Sliding Scale -) 1 vial SQ ACHS [facility]; Protocol Last Admin: 02/13/19 16:55 Dose: 4 units Insulin Detemir (Levemir Vial) 20 units SQ AM [facility] Last Admin: 02/13/19 06:52 Dose: 20 units Lactic Acid (Lac-Hydrin 12) 1 applic TP BID [facility] Last Admin: 02/13/19 10:50 Dose: 1 applic Quetiapine Fumarate (Seroquel -) 200 mg PO TID [facility] Last Admin: 02/13/19 14:07 Dose: 200 mg Triamcinolone Acetonide (Aristocort 0.5% Cream -) 1 applic TP BID [facility] Last Admin: 02/13/19 10:50 Dose: 1 applic Venlafaxine HCl (Effexor Xr -) 150 mg PO DAILY@0800 [facility] Last Admin: 02/13/19 10:47 Dose: 150 mg - Objective Vital Signs: Vital Signs Temperature 98.0 F 02/13/19 14:00 Pulse Rate 111 H 02/13/19 14:00 Respiratory Rate 18 02/13/19 14:00 Blood Pressure 98/60 02/13/19 14:00 O2 Sat by Pulse Oximetry (%) 97 02/12/19 09:00 Constitutional: Yes: Calm Eyes: Yes: Conjunctiva Clear HENT: Yes: Atraumatic Neck: Yes: Supple Cardiovascular: Yes: S1, S2 Respiratory: Yes: CTA Bilaterally Gastrointestinal: Yes: Normal Bowel Sounds, Soft Genitourinary: Yes: WNL Musculoskeletal: Yes: WNL Edema: No Wound/Incision: Yes: Dressing Dry and Intact Neurological: Yes: Oriented Psychiatric: Yes: Oriented Labs: CBC, BMP 02/11/19 06:33 02/11/19 06:33 Problem List - Problems (1) COPD (chronic obstructive pulmonary disease) Code(s): J44.9 - CHRONIC OBSTRUCTIVE PULMONARY DISEASE, UNSPECIFIED (2) Hyperkalemia Code(s): E87.5 - HYPERKALEMIA (3) ELIZABETH (acute kidney injury) Code(s): N17.9 - ACUTE KIDNEY FAILURE, UNSPECIFIED Assessment/Plan Current Medications Generic Name Dose Route Start Last Admin Trade Name Freq PRN Reason Stop Dose Admin Acetaminophen 650 mg 01/27/19 03:09 02/10/19 13:44 Tylenol - PO 650 mg Q6H PRN Administration PAIN OR FEVER Albuterol Sulfate 2 puff 01/27/19 20:00 02/13/19 10:50 Ventolin Hfa Inhaler - IH 2 puff RQID [facility] Administration Budesonide/Formoterol Fumarate 1 puff 01/27/19 10:00 02/13/19 10:50 Symbicort 80/4.5mcg - IH 1 puff BID [facility] Administration Collagenase 1 applic 02/13/19 14:00 02/13/19 16:56 Santyl - TP 1 applic DAILY [facility] Administration Protocol Gabapentin 300 mg 01/27/19 14:00 02/13/19 14:07 Neurontin - PO 300 mg TID [facility] Administration Insulin Aspart 1 vial 02/03/19 22:00 02/13/19 16:55 Novolog Vial Sliding Scale - SQ 4 units ACHS [facility] Administration Protocol Insulin Detemir 20 units 02/04/19 07:00 02/13/19 06:52 Levemir Vial SQ 20 units AM [facility] Administration Lactic Acid 1 applic 01/28/19 11:00 02/13/19 10:50 Lac-Hydrin 12 TP 1 applic BID [facility] Administration Quetiapine Fumarate 200 mg 02/01/19 14:00 02/13/19 14:07 Seroquel - PO 200 mg TID [facility] Administration Triamcinolone Acetonide 1 applic 01/28/19 11:00 02/13/19 10:50 Aristocort 0.5% Cream - TP 1 applic BID [facility] Administration Venlafaxine HCl 150 mg 01/27/19 08:00 02/13/19 10:47 Effexor Xr - PO 150 mg DAILY@0800 [facility] Administration Impression 1. CKD 2. HTN 3. s/p fall 4. DM 5. ELIZABETH 6. hyperkalemia Plan - check bmp - repeat ua - vascular input appreciated - avoid nsaids - avoid nephrotoxins
[2019-02-14] MEDS: INSULIN SLIDING SCALE (NOVOLOG) 1 VIAL SQ SCH ×4 (06:17→21:47)
[2019-02-14] MEDS: INSULIN (LEVEMIR) 100 UNITS/ML UNITS SQ SCH (06:17)
[2019-02-14] MEDS: GABAPENTIN 300 MG CAPSULE (FP) PO SCH ×3 (06:18→21:46)
[2019-02-14] MEDS: QUEtiapine FUMARATE 200 MG TABLET PO SCH ×3 (06:18→21:46)
[2019-02-14] MEDS ORDERED: INSULIN (NOVOLOG) ASPART 100 UNITS/ML 10ML VIAL ONE ×2 (06:25→11:35)
[2019-02-14] MEDS: VENLAFAXINE HCL 75 MG E.R. CAPSULES (FP) PO SCH (09:46)
[2019-02-14] MEDS: ALBUTEROL SO4 8 GM HFA INHALER IH SCH ×5 (09:47→21:50)
[2019-02-14] MEDS: COLLAGENASE CLOSTRIDIUM HIST. 30 GRAMS TUBE TP SCH (09:48)
[2019-02-14] MEDS: TRIAMCINOLONE ACET 0.5% CREAM 15 GM TUBE TP SCH ×2 (09:48→21:50)
[2019-02-14] MEDS: AMMONIUM LACTATE 12% LOTION 225 GM BOTTLE TP SCH ×2 (09:48→21:49)
[2019-02-14] MEDS: BUDESONIDE/FORMETEROL FUMARATE 80/4.5 mcg INHALER IH SCH ×2 (09:49→21:49)
--- NOTE | 2019-02-14 14:47 | PN ---
Progress Note (short form) - Note Progress Note: DC PLANNING PENDING FOR TOMORROW CONTINUE CURRENT MANAGEMENT Problem List - Problems (1) COPD (chronic obstructive pulmonary disease) Code(s): J44.9 - CHRONIC OBSTRUCTIVE PULMONARY DISEASE, UNSPECIFIED (2) Cellulitis Code(s): L03.90 - CELLULITIS, UNSPECIFIED (3) DKA, type 2, not at goal Code(s): E11.10 - TYPE 2 DIABETES MELLITUS WITH KETOACIDOSIS WITHOUT COMA (4) Dermatitis Code(s): L30.9 - DERMATITIS, UNSPECIFIED (5) Edema Code(s): R60.9 - EDEMA, UNSPECIFIED (6) Weakness Code(s): R53.1 - WEAKNESS (7) Anxiety Code(s): F41.9 - ANXIETY DISORDER, UNSPECIFIED (8) CKD (chronic kidney disease) Code(s): N18.9 - CHRONIC KIDNEY DISEASE, UNSPECIFIED (9) Depression Code(s): F32.9 - MAJOR DEPRESSIVE DISORDER, SINGLE EPISODE, UNSPECIFIED (10) Noncompliance with diabetes treatment Code(s): Z91.19 - PATIENT'S NONCOMPLIANCE W OTH MEDICAL TREATMENT AND REGIMEN
[2019-02-14 15:05] LABS: HYALINE CASTS 0 /lpf (0-8); URINE APPEARANCE CLEAR; URINE BACTERIA 3.6 /hpf (NEGATIVE); URINE BILIRUBIN NEGATIVE (NEGATIVE); URINE COLOR YELLOW; URINE GLUCOSE (UA) 2+ (NEGATIVE); URINE KETONE NEGATIVE (NEGATIVE); URINE LEUK ESTERASE TRACE (NEGATIVE); URINE NITRITE NEGATIVE (NEGATIVE); URINE PROTEIN NEGATIVE (NEGATIVE); URINE UROBILINOGEN 0.2 mg/dL (0.2-1.0); URINE WBC 36 /hpf (0-5)
[2019-02-14 15:41] LABS: URINE RBC 4.7 /hpf (0-4); YEAST MODERATE (NEGATIVE)
--- NOTE | 2019-02-14 18:28 | PN ---
Progress Note, Physician History of Present Illness: Pt seen and examined at bedside. She is awake and alert. She denies shortness of breath. - Current Medication List Current Medications: Active Medications Acetaminophen (Tylenol -) 650 mg PO Q6H PRN PRN Reason: PAIN OR FEVER Last Admin: 02/10/19 13:44 Dose: 650 mg Albuterol Sulfate (Ventolin Hfa Inhaler -) 2 puff IH RQID [facility] Last Admin: 02/14/19 17:04 Dose: 2 puff Budesonide/Formoterol Fumarate (Symbicort 80/4.5mcg -) 1 puff IH BID [facility] Last Admin: 02/14/19 09:49 Dose: 1 puff Collagenase (Santyl -) 1 applic TP DAILY [facility]; Protocol Last Admin: 02/14/19 09:48 Dose: Not Given Gabapentin (Neurontin -) 300 mg PO TID [facility] Last Admin: 02/14/19 14:15 Dose: 300 mg Insulin Aspart (Novolog Vial Sliding Scale -) 1 vial SQ ACHS [facility]; Protocol Last Admin: 02/14/19 17:05 Dose: 6 units Insulin Detemir (Levemir Vial) 20 units SQ AM [facility] Last Admin: 02/14/19 06:17 Dose: 20 units Lactic Acid (Lac-Hydrin 12) 1 applic TP BID [facility] Last Admin: 02/14/19 09:48 Dose: 1 applic Quetiapine Fumarate (Seroquel -) 200 mg PO TID [facility] Last Admin: 02/14/19 14:15 Dose: 200 mg Triamcinolone Acetonide (Aristocort 0.5% Cream -) 1 applic TP BID [facility] Last Admin: 02/14/19 09:48 Dose: 1 applic Venlafaxine HCl (Effexor Xr -) 150 mg PO DAILY@0800 [facility] Last Admin: 02/14/19 09:46 Dose: 150 mg - Objective Vital Signs: Vital Signs Temperature 98.7 F 02/14/19 13:40 Pulse Rate 94 H 02/14/19 13:40 Respiratory Rate 20 02/14/19 13:40 Blood Pressure 97/62 02/14/19 13:40 O2 Sat by Pulse Oximetry (%) 98 02/14/19 09:00 Constitutional: Yes: Calm Eyes: Yes: Conjunctiva Clear Cardiovascular: Yes: S1, S2 Respiratory: Yes: CTA Bilaterally Gastrointestinal: Yes: Soft Genitourinary: Yes: WNL Musculoskeletal: Yes: WNL Edema: No Wound/Incision: Yes: Dressing Dry and Intact Neurological: Yes: Oriented Psychiatric: Yes: Oriented Labs: CBC, BMP 02/11/19 06:33 02/11/19 06:33 Problem List - Problems (1) COPD (chronic obstructive pulmonary disease) Code(s): J44.9 - CHRONIC OBSTRUCTIVE PULMONARY DISEASE, UNSPECIFIED (2) Hyperkalemia Code(s): E87.5 - HYPERKALEMIA (3) ELIZABETH (acute kidney injury) Code(s): N17.9 - ACUTE KIDNEY FAILURE, UNSPECIFIED Assessment/Plan Current Medications Generic Name Dose Route Start Last Admin Trade Name Freq PRN Reason Stop Dose Admin Acetaminophen 650 mg 01/27/19 03:09 02/10/19 13:44 Tylenol - PO 650 mg Q6H PRN Administration PAIN OR FEVER Albuterol Sulfate 2 puff 01/27/19 20:00 02/14/19 17:04 Ventolin Hfa Inhaler - IH 2 puff RQID [facility] Administration Budesonide/Formoterol Fumarate 1 puff 01/27/19 10:00 02/14/19 09:49 Symbicort 80/4.5mcg - IH 1 puff BID [facility] Administration Collagenase 1 applic 02/13/19 14:00 02/14/19 09:48 Santyl - TP Not Given DAILY [facility] Protocol Gabapentin 300 mg 01/27/19 14:00 02/14/19 14:15 Neurontin - PO 300 mg TID [facility] Administration Insulin Aspart 1 vial 02/03/19 22:00 02/14/19 17:05 Novolog Vial Sliding Scale - SQ 6 units ACHS [facility] Administration Protocol Insulin Detemir 20 units 02/04/19 07:00 02/14/19 06:17 Levemir Vial SQ 20 units AM [facility] Administration Lactic Acid 1 applic 01/28/19 11:00 02/14/19 09:48 Lac-Hydrin 12 TP 1 applic BID [facility] Administration Quetiapine Fumarate 200 mg 02/01/19 14:00 02/14/19 14:15 Seroquel - PO 200 mg TID [facility] Administration Triamcinolone Acetonide 1 applic 01/28/19 11:00 02/14/19 09:48 Aristocort 0.5% Cream - TP 1 applic BID [facility] Administration Venlafaxine HCl 150 mg 01/27/19 08:00 02/14/19 09:46 Effexor Xr - PO 150 mg DAILY@0800 [facility] Administration Laboratory Tests 02/14/19 14:45 Urine Protein Negative Urine Blood Negative Impression 1. CKD 2. HTN 3. s/p fall 4. DM 5. ELIZABETH 6. hyperkalemia Plan - repeat ua is improved - pt refusing labs - avoid nsaids - avoid nephrotoxins
[2019-02-15] MEDS: GABAPENTIN 300 MG CAPSULE (FP) PO SCH ×2 (06:32→14:18)
[2019-02-15] MEDS: INSULIN SLIDING SCALE (NOVOLOG) 1 VIAL SQ SCH ×2 (06:32→11:31)
[2019-02-15] MEDS: INSULIN (LEVEMIR) 100 UNITS/ML UNITS SQ SCH (06:32)
[2019-02-15] MEDS: QUEtiapine FUMARATE 200 MG TABLET PO SCH ×2 (06:33→14:18)
[2019-02-15] MEDS ORDERED: INSULIN (NOVOLOG) ASPART 100 UNITS/ML 10ML VIAL ONE (06:48)
[2019-02-15] MEDS: ALBUTEROL SO4 8 GM HFA INHALER IH SCH ×2 (08:54→14:18)
[2019-02-15] MEDS: VENLAFAXINE HCL 75 MG E.R. CAPSULES (FP) PO SCH (08:54)
[2019-02-15] MEDS: BUDESONIDE/FORMETEROL FUMARATE 80/4.5 mcg INHALER IH SCH (09:41)
[2019-02-15] MEDS: TRIAMCINOLONE ACET 0.5% CREAM 15 GM TUBE TP SCH (09:42)
[2019-02-15] MEDS: AMMONIUM LACTATE 12% LOTION 225 GM BOTTLE TP SCH (09:42)
[2019-02-15] MEDS: COLLAGENASE CLOSTRIDIUM HIST. 30 GRAMS TUBE TP SCH (09:42)
--- NOTE | 2019-02-15 11:33 | DS ---
Physical Examination Vital Signs: Vital Signs Temperature 98.5 F 02/15/19 06:15 Pulse Rate 111 H 02/15/19 10:00 Respiratory Rate 02/15/19 10:00 Blood Pressure 94/58 L 02/15/19 10:00 O2 Sat by Pulse Oximetry (%) 98 02/14/19 21:00 Findings/Remarks: 68 y/o F hx of HTN, T2DM, Anxiety,depression,COPD and non-compliance with medication regimen arrived to Emergency room at [facility] post fall at home. Patient is not the best historian, reports falling on the floor while getting up from the couch. She fell on her back and denies hitting her head. Patient complain of dizziness, headache, nausea and right lower leg pain. She reports being on the floor for about an hour before calling EMS. She has been able to ambulate while here in the ER. She denies LOC, vomiting, diarrhea, bloody stools, fevers , chills. Patient states she lives alone. Pt agreed to SNF Will need follow up with Dr Ced Venegas at [facility] care [place] Constitutional: Yes: Well Nourished, No Distress, Calm Cardiovascular: Yes: Regular Rate and Rhythm Respiratory: Yes: Regular Gastrointestinal: Yes: Normal Bowel Sounds, Soft Renal/: Yes: WNL Musculoskeletal: Yes: WNL Extremities: Yes: WNL Edema: No Peripheral Pulses WNL: Yes Wound/Incision: Yes: Dressing Dry and Intact Neurological: Yes: Alert, Oriented Psychiatric: Yes: Alert, Oriented Labs: CBC, BMP 02/11/19 06:33 02/11/19 06:33 Discharge Summary Problems reviewed: Yes Reason For Visit: CELLULITIS, DIABETIC KETOACIDOSIS ASSOCIATED WITH Current Active Problems COPD (chronic obstructive pulmonary disease) (Acute) Cellulitis (Acute) DKA (diabetic ketoacidoses) (Acute) DKA, type 2, not at goal (Acute) Dermatitis (Acute) Edema (Acute) Electrolyte abnormality (Acute) Hyperkalemia (Acute) Hypermagnesemia (Acute) Schizoaffective disorder, chronic condition (Acute) Status post fall (Acute) Weakness (Acute) Hospital Course: (1) COPD (chronic obstructive pulmonary disease) Assessment/Plan: -Pulm on board -keep SpO2 >90% -O2 via NC -Symbicort -Bronchodilators Code(s): J44.9 - CHRONIC OBSTRUCTIVE PULMONARY DISEASE, UNSPECIFIED (2) Cellulitis--Wound on LE Assessment/Plan: -ID on board -Leukocytosis -afebrile -Augmentin -BC neg -daily dressing changes -Vascular follow up -Duplex no dvt -pain control Code(s): L03.90 - CELLULITIS, UNSPECIFIED (3) DKA (diabetic ketoacidoses) Assessment/Plan: -Endocrinology on board -Levemir BID -ISS -HgA1c 13.0% -Pt is non compliant Code(s): E11.10 - TYPE 2 DIABETES MELLITUS WITH KETOACIDOSIS WITHOUT COMA Qualifiers: Diabetes mellitus type: type 2 Diabetes mellitus complication detail: without coma Qualified Code(s): E11.10 - Type 2 diabetes mellitus with ketoacidosis without coma (4) Hyperkalemia Assessment/Plan: -resolved -monitor electrolytes and replete as needed Code(s): E87.5 - HYPERKALEMIA (5) Weakness Assessment/Plan: -PT -fall precaution Code(s): R53.1 - WEAKNESS (6) ELIZABETH (acute kidney injury) Assessment/Plan: -Renal on board Code(s): N17.9 - ACUTE KIDNEY FAILURE, UNSPECIFIED (7) Diabetes Assessment/Plan: -Endocrinology on board -Levemir BID -ISS -HgA1c 13.0% -dietary consult -diabetic diet -patient is extremely non-compliant with medication regimen Code(s): E11.9 - TYPE 2 DIABETES MELLITUS WITHOUT COMPLICATIONS Qualifiers: Diabetes mellitus type: type 2 (8) Fall Assessment/Plan: -PT -fall risk precaution Code(s): W19.XXXA - UNSPECIFIED FALL, INITIAL ENCOUNTER (9) Depression Assessment/Plan: -Effexor -Psych consult Code(s): F32.9 - MAJOR DEPRESSIVE DISORDER, SINGLE EPISODE, UNSPECIFIED dc planning pt not safe to go home and refusing snf 68 y/o F hx of HTN, T2DM, Anxiety,depression,COPD and non-compliance with medication regimen arrived to Emergency room at [facility] post fall at home. Patient is not the best historian, reports falling on the floor while getting up from the couch. She fell on her back and denies hitting her head. Patient complain of dizziness, headache, nausea and right lower leg pain. She reports being on the floor for about an hour before calling EMS. She has been able to ambulate while here in the ER. She denies LOC, vomiting, diarrhea, bloody stools, fevers , chills. Patient states she lives alone. While in patient evaluated by Vascular and recommend wound debridement but patient refused. Patient was evaluated by ID and received IV ABT which is now switched to oral. Recommend patient to be discharged to SNF for aggressive wound care needed to RLE. Patient adamantly refused and wishes to go home. Patient will be discharged home with [facility] Care visiting nurse services for wound care of RLE. Patient will need to follow up in [facility] wound care clinic on the 5th floor. Condition: Stable - Instructions Diet, Activity, Other Instructions: Wound approximately 5 x 2 cm. change dressing orders to santyl/moist dressing with kerlix daily Follow up with [facility] W[facility] [phone] in 1 week Referrals: Mamie Mckenzie [Primary Care Provider] - 1 Week Ced Venegas DO [Staff Physician] - [facility] - Home Medications Comprehensive Discharge Medication List: Ambulatory Orders Gabapentin [Neurontin -] 300 mg PO Q8H PRN 03/28/17 Venlafaxine HCl ER [Effexor Xr -] 150 mg PO DAILY 03/28/17 Acetaminophen [Tylenol .Regular Strength -] 650 mg PO Q6H PRN tablet 09/06/18 Albuterol Sulfate [Albuterol Sulfate Hfa] 8.5 gm IH QID #3 hfa.aer.ad 09/07/18 Budesonide/Formeterol Fumarate [SYMBICORT 80/4.5mcg -] 1 inh PO BID #1 cannister 09/07/18 Lactobacillus Acidophilus [Acidophilus] 1 each PO DAILY #30 capsule 09/27/18 Ammonium Lactate Lotion [Lac-Hydrin 12] 1 applic TP BID #1 bottle 02/08/19 Amox-Tr/K Cl [Augmentin 875-125mg Tablet -] 1 tab PO BID@0800,1730 #14 tablet Insulin (Levemir) [Levemir Vial] 25 units SQ AM #5 syringe 02/08/19 Triamcinolone 0.5% Cream [Aristocort 0.5% Cream -] 1 applic TP BID #60 grams Prescription Drug Monitoring Program (I-STOP) results: I-STOP reviewed and no issues identified
[2019-02-15 13:19] VITALS: BP 118/83; PULSE 102; TEMP 98.7
--- NOTE | 2019-02-15 16:55 | PN ---
Progress Note, Physician History of Present Illness: Pt seen and examined. She does not want any labs drawn. She agrees to go to rehab. She denies shortness of breath. - Current Medication List Current Medications: Active Medications Acetaminophen (Tylenol -) 650 mg PO Q6H PRN PRN Reason: PAIN OR FEVER Last Admin: 02/10/19 13:44 Dose: 650 mg Albuterol Sulfate (Ventolin Hfa Inhaler -) 2 puff IH RQID [facility] Last Admin: 02/15/19 14:18 Dose: 2 puff Budesonide/Formoterol Fumarate (Symbicort 80/4.5mcg -) 1 puff IH BID [facility] Last Admin: 02/15/19 09:41 Dose: 1 puff Collagenase (Santyl -) 1 applic TP DAILY [facility]; Protocol Last Admin: 02/15/19 09:42 Dose: 1 applic Gabapentin (Neurontin -) 300 mg PO TID [facility] Last Admin: 02/15/19 14:18 Dose: 300 mg Insulin Aspart (Novolog Vial Sliding Scale -) 1 vial SQ ACHS [facility]; Protocol Last Admin: 02/15/19 11:31 Dose: 5 units Insulin Detemir (Levemir Vial) 20 units SQ AM [facility] Last Admin: 02/15/19 06:32 Dose: 20 units Lactic Acid (Lac-Hydrin 12) 1 applic TP BID [facility] Last Admin: 02/15/19 09:42 Dose: 1 applic Quetiapine Fumarate (Seroquel -) 200 mg PO TID [facility] Last Admin: 02/15/19 14:18 Dose: 200 mg Triamcinolone Acetonide (Aristocort 0.5% Cream -) 1 applic TP BID [facility] Last Admin: 02/15/19 09:42 Dose: 1 applic Venlafaxine HCl (Effexor Xr -) 150 mg PO DAILY@0800 [facility] Last Admin: 02/15/19 08:54 Dose: 150 mg - Objective Vital Signs: Vital Signs Temperature 98.7 F 02/15/19 13:18 Pulse Rate 102 H 02/15/19 13:18 Respiratory Rate 20 02/15/19 13:18 Blood Pressure 118/83 02/15/19 13:18 O2 Sat by Pulse Oximetry (%) 98 02/14/19 21:00 Constitutional: Yes: Calm Eyes: Yes: Conjunctiva Clear HENT: Yes: Atraumatic Cardiovascular: Yes: S1, S2 Respiratory: Yes: CTA Bilaterally Gastrointestinal: Yes: Soft Musculoskeletal: Yes: WNL Edema: No Wound/Incision: Yes: Dressing Dry and Intact Neurological: Yes: Oriented Psychiatric: Yes: Oriented Labs: CBC, BMP 02/11/19 06:33 02/11/19 06:33 Problem List - Problems (1) COPD (chronic obstructive pulmonary disease) Code(s): J44.9 - CHRONIC OBSTRUCTIVE PULMONARY DISEASE, UNSPECIFIED (2) Hyperkalemia Code(s): E87.5 - HYPERKALEMIA (3) ELIZABETH (acute kidney injury) Code(s): N17.9 - ACUTE KIDNEY FAILURE, UNSPECIFIED Assessment/Plan Current Medications Generic Name Dose Route Start Last Admin Trade Name Freq PRN Reason Stop Dose Admin Acetaminophen 650 mg 01/27/19 03:09 02/10/19 13:44 Tylenol - PO 650 mg Q6H PRN Administration PAIN OR FEVER Albuterol Sulfate 2 puff 01/27/19 20:00 02/15/19 14:18 Ventolin Hfa Inhaler - IH 2 puff RQID KACIE Administration Budesonide/Formoterol Fumarate 1 puff 01/27/19 10:00 02/15/19 09:41 Symbicort 80/4.5mcg - IH 1 puff BID KAICE Administration Collagenase 1 applic 02/13/19 14:00 02/15/19 09:42 Santyl - TP 1 applic DAILY KACIE Administration Protocol Gabapentin 300 mg 01/27/19 14:00 02/15/19 14:18 Neurontin - PO 300 mg TID KACIE Administration Insulin Aspart 1 vial 02/03/19 22:00 02/15/19 11:31 Novolog Vial Sliding Scale - SQ 5 units ACHS KACIE Administration Protocol Insulin Detemir 20 units 02/04/19 07:00 02/15/19 06:32 Levemir Vial SQ 20 units AM KACIE Administration Lactic Acid 1 applic 01/28/19 11:00 02/15/19 09:42 Lac-Hydrin 12 TP 1 applic BID KACIE Administration Quetiapine Fumarate 200 mg 02/01/19 14:00 02/15/19 14:18 Seroquel - PO 200 mg TID KACIE Administration Triamcinolone Acetonide 1 applic 01/28/19 11:00 02/15/19 09:42 Aristocort 0.5% Cream - TP 1 applic BID KACIE Administration Venlafaxine HCl 150 mg 01/27/19 08:00 02/15/19 08:54 Effexor Xr - PO 150 mg DAILY@0800 KACIE Administration Impression 1. CKD 2. HTN 3. s/p fall 4. DM 5. ELIZABETH 6. hyperkalemia Plan - no new labs - cont wound care - recall as needed - can see in office - avoid nsaids - avoid nephrotoxins
== END 2019-02-15 16:59 | DRG 602 ==
LOC: JER 16:42 → JERBED 01-27 01:21 → J4W 01-27 17:12 → J6S 01-31 13:58
PROVIDERS: ADMIT Internal Medicine; ATTEND Family Medicine
DX: L03.115 Cellulitis of right lower limb (principal); E11.10 Type 2 diabetes mellitus with ketoacidosis without coma; G93.41 Metabolic encephalopathy; N17.9 Acute kidney failure, unspecified; E87.2 Acidosis; E87.5 Hyperkalemia; E83.41 Hypermagnesemia; D72.829 Elevated white blood cell count, unspecified; I12.9 Hypertensive chronic kidney disease with stage 1 through stage 4 chronic kidney disease, or unspecified chronic kidney disease; E11.22 Type 2 diabetes mellitus with diabetic chronic kidney disease; N18.9 Chronic kidney disease, unspecified; J44.9 Chronic obstructive pulmonary disease, unspecified; W18.30XA Fall on same level, unspecified, initial encounter; F41.8 Other specified anxiety disorders; E83.51 Hypocalcemia; E87.8 Other disorders of electrolyte and fluid balance, not elsewhere classified; M54.5 Low back pain; L30.9 Dermatitis, unspecified; R60.9 Edema, unspecified; E11.42 Type 2 diabetes mellitus with diabetic polyneuropathy; Z91.81 History of falling; Z91.14 Patient's other noncompliance with medication regimen; Y92.098 Other place in other non-institutional residence as the place of occurrence of the external cause
CPT/HCPCS: 36415; 36600; 71045-TC-FY; 73700-TC-RT; 80048; 80053; 81003; 82010; 82550; 82803; 82962; 83036; 83605; 83735; 84378; 84484; 85025; 85027; 87040; 93005; 93010; 93971-TC; 97116-GP; 97161-GP; 99285-25; J0131; J1644; J7030

== ENCOUNTER 2019-08-22 20:27 | Emergency (ER) | payer OTHER ==
[2019-08-22 20:38] VITALS: BMI 25.7
[2019-08-22] MEDS ORDERED: SODIUM CHLORIDE 2,041 ML IV ONE (21:18)
[2019-08-22] MEDS ORDERED: ACETAMINOPHEN 1000 MG/100 ML VIAL (NON FORMULARY) IVPB ONE (21:19)
[2019-08-22] MEDS ORDERED: ONDANSETRON 4 MG/2 ML VIAL IVPUSH ONE (21:19)
[2019-08-22] MEDS ORDERED: ALPRAZolam 1 MG TABLET PO PRN (21:19)
[2019-08-22] MEDS ORDERED: ALPRAZolam 0.25 MG TABLET ONE (21:42)
[2019-08-22 22:19] LABS: BASO % 1.3 % (0-2.0); EOS % 1.7 % (0-4.5); HEMATOCRIT 39.3 % (32.4-45.2); HEMOGLOBIN 13.1 GM/dL (10.7-15.3); LYMPH % 24.2 % (8-40); MCH 30.7 pg (25.7-33.7); MCHC 33.3 g/dl (32.0-36.0); MEAN CELL VOLUME 92.3 fl (80-96); MONO % 4.7 % (3.8-10.2); NEUT % 68.1 % (42.8-82.8); PLATELET COUNT 135 K/MM3 (134-434); RBC 4.26 M/mm3 (3.60-5.2); RDW 13.7 % (11.6-15.6); WHITE BLOOD COUNT 8.4 K/mm3 (4.0-10.0)
[2019-08-22 22:26] LABS: PROTHROMBIN TIME (PATIENT) 11.8 SEC (9.7-13.0)
[2019-08-22 22:28] LABS: ACTIVATED PTT 38.3 SECONDS (25.2-36.5)
[2019-08-22] MEDS ORDERED: ACETAMINOPHEN INJECTION 100 ML IVPB ONE (22:42)
[2019-08-22 22:57] LABS: BILIRUBIN,TOTAL 0.3 mg/dL (0.2-1); BLOOD UREA NITROGEN 38.2 mg/dL (7-18); CALCIUM 9.8 mg/dL (8.5-10.1); CREATININE 1.6 mg/dL (0.55-1.3); POTASSIUM 4.6 mmol/L (3.5-5.1); TOT PROT 8.2 g/dl (6.4-8.2)
--- NOTE | 2019-08-22 23:08 | PDOC ---
History of Present Illness - General Chief Complaint: Lightheaded Stated Complaint: DIZZINESS AND NAUSEA Time Seen by Provider: 08/22/19 21:15 History Source: Patient Exam Limitations: No Limitations - History of Present Illness Initial Comments: 08/23/19 01:39 Josie Galloway is a 69F with PMH HTN, T2DM, anxiety, depression, COPD, chronic lower back pain, detox admission presenting with dizziness and chest pain. Patient reports not eating last few days and is having episodes of chest pain, SOB, and dizziness. Poor PO intake. Denies fever, chills, nausea, vomiting, abd pain, urinary sx. No sick contacts. No prior cardiac history or prior episodes of chest pain like this. Reports anxiety but has never seen psychiatrist, sees PMD Dr. Kc for pain medications, formerly on Xanax but unable to get prescription refill. Also on Seroquel for anxiety per patient. No pain ma nagement specialist. Smokes 1ppd. Denies alcohol/drug use. NKDA. Past History - Medical History Allergies/Adverse Reactions: Allergies Allergy/AdvReac Type Severity Reaction Status Date / Time No Known Allergies Allergy Verified 08/22/19 20:37 Home Medications: Ambulatory Orders Gabapentin [Neurontin -] 600 mg PO TID PRN 03/28/17 Venlafaxine HCl ER [Effexor Xr -] 150 mg PO DAILY 03/28/17 Acetaminophen [Tylenol .Regular Strength -] 650 mg PO Q6H PRN tablet 09/06/18 Albuterol Sulfate [Albuterol Sulfate Hfa] 8.5 gm IH QID #3 hfa.aer.ad 09/07/18 Budesonide/Formeterol Fumarate [SYMBICORT 80/4.5mcg -] 1 inh PO BID #1 cannister 09/07/18 Lactobacillus Acidophilus [Acidophilus] 1 each PO DAILY #30 capsule 09/27/18 Ammonium Lactate Lotion [Lac-Hydrin 12] 1 applic TP BID #1 bottle 02/08/19 Insulin (Levemir) [Levemir Vial] 25 units SQ AM #5 syringe 02/08/19 Triamcinolone 0.5% Cream [Aristocort 0.5% Cream -] 1 applic TP BID #60 grams 02/08/19 Cephalexin [Keflex] 1 cap PO TID 03/02/19 Insulin Detemir 10 units SCJ DAILY 03/02/19 Ketorolac Tromethamine 10 mg PO Q12H PRN 03/02/19 Melatonin 3 mg PO HS 03/02/19 Quetiapine Fumarate "Xr" [Seroquel XR] 150 mg PO HS 03/02/19 Quetiapine Fumarate [Seroquel -] 200 mg PO Q8H 03/02/19 Anemia: No Asthma: No Cancer: No Cardiac Disorders: No CVA: No COPD: No CHF: No Dementia: No Diabetes: Yes (type 2) GI Disorders: No Disorders: No HTN: Yes Hypercholesterolemia: No Liver Disease: No Psychiatric Problems: Yes Seizures: No Thyroid Disease: No - Surgical History Abdominal Surgery: No Appendectomy: Yes Cardiac Surgery: No Cholecystectomy: No Lung Surgery: No Neurologic Surgery: No Orthopedic Surgery: No - Immunization History Td Vaccination: Yes TDAP Vaccination: Yes Immunization Up to Date: Yes - Psycho-Social/Smoking History Smoking Status: No Smoking History: Never smoked Years of Tobacco Use: 0 Have you smoked in the past 12 months: Yes Number of Cigarettes Smoked Daily: 5 If you are a former smoker, when did you quit?: 1 month ago Cigars Per Day: 0 'Breaking Loose' booklet given: 08/28/18 - Substance Abuse Hx (Audit-C & DAST Scrn) How often the patient has a drink containing alcohol: Never Score: In Men: 4 or > Positive; In Women: 3 or > Positive: 0 Screen Result (Pos requires Nsg. Audit-10AR): Negative In the last yr the pt used illegal drug/Rx for NonMed reason: No Score: Yes response is considered Positive: 0 Screen Result (Positive result requires Nsg. DAST-10): Negative Review of Systems - Review of Systems Able to Perform ROS?: Yes Constitutional: No: Chills, Fever HEENTM: No: Symptoms Reported Respiratory: Yes: Shortness of Breath. No: Cough Cardiac (ROS): Yes: Chest Pain. No: Irregular Heart Rate, Lightheadedness, Palpitations, Syncope ABD/GI: Yes: Poor Appetite, Poor Fluid Intake. No: Constipated, Diarrhea, Nausea, Vomiting : No: Symptoms Reported Musculoskeletal: No: Symptoms Reported Integumentary: No: Symptoms Reported Neurological: No: Symptoms reported Endocrine: No: Symptoms Reported Hematologic/Lymphatic: No: Symptoms Reported All Other Systems: Reviewed and Negative *Physical Exam - Vital Signs Last Vital Signs Temp Pulse Resp BP Pulse Ox 100.7 F H 105 H 18 103/69 95 08/22/19 20:34 08/22/19 20:34 08/22/19 20:34 08/22/19 20:34 08/22/19 20:34 - Physical Exam General Appearance: Yes: Nourished, Appropriately Dressed, Mild Distress, Obese HEENT: positive: EOMI, MI, Normal Voice, Symmetrical, Pharynx Normal. negative: Scleral Icterus (R), Scleral Icterus (L), Pharyngeal Erythema, Tonsillar Exudate, Tonsillar Erythema Neck: positive: Normal Thyroid, Supple. negative: Tender, Rigid, Lymphadenopathy (R), Lymphadenopathy (L), Tender lateral, Tender midline Respiratory/Chest: positive: Lungs Clear, Normal Breath Sounds. negative: Chest Tender, Respiratory Distress, Accessory Muscle Use, Crackles, Rales, Rhonchi, Stridor, Wheezing Cardiovascular: positive: Other (reproducible chest tenderness). negative: Regular Rhythm, Regular Rate Gastrointestinal/Abdominal: positive: Normal Bowel Sounds, Flat, Soft. negative: Tender, Organomegaly, Pulsatile Mass, Guarding, Rebound, Tenderness, Hernia, Mass Musculoskeletal: positive: Normal Inspection. negative: CVA Tenderness, CVA Tenderness (R), CVA Tenderness (L), Decreased Range of Motion Extremity: positive: Normal Capillary Refill, Normal Inspection, Normal Range of Motion. negative: Tender, Swelling, Calf Tenderness Integumentary: positive: Normal Color, Dry, Warm Neurologic: positive: Fully Oriented, Alert, Normal Mood/Affect, Normal Response. negative: Motor Strength 5/5 ED Treatment Course - LABORATORY CBC & Chemistry Diagram: 08/22/19 21:50 08/22/19 21:50 - ADDITIONAL ORDERS Additional order review: Laboratory Results 08/22/19 08/22/19 08/22/19 21:50 21:50 21:50 PT with INR INR PTT (Actin FS) Sodium 134 L Potassium 4.6 Chloride 94 L Carbon Dioxide 33 H Anion Gap 7 L BUN 38.2 H Creatinine 1.6 H Est GFR (CKD-EPI)AfAm 37.45 Est GFR (CKD-EPI)NonAf 32.31 Random Glucose 364 H Lactic Acid 1.5 Calcium 9.8 Total Bilirubin 0.3 AST 24 ALT 34 Alkaline Phosphatase 83 Troponin I < 0.02 Total Protein 8.2 Albumin 4.0 08/22/19 21:50 PT with INR 11.80 INR 1.00 PTT (Actin FS) 38.3 H Sodium Potassium Chloride Carbon Dioxide Anion Gap BUN Creatinine Est GFR (CKD-EPI)AfAm Est GFR (CKD-EPI)NonAf Random Glucose Lactic Acid Calcium Total Bilirubin AST ALT Alkaline Phosphatase Troponin I Total Protein Albumin 08/22/19 21:50 RBC 4.26 MCV 92.3 MCHC 33.3 RDW 13.7 MPV 10.0 D Neutrophils % 68.1 Lymphocytes % 24.2 D Monocytes % 4.7 Eosinophils % 1.7 Basophils % 1.3 - RADIOLOGY Radiology Studies Ordered: Category Date Time Status CHEST X-RAY PORTABLE* [RAD] Stat Radiology 08/22/19 21:18 Ordered Medical Decision Making - Medical Decision Making 08/23/19 00:20 Patient presents with chest pain and dizziness, no prior cardiac history, complaining of anxiety and asking repeatedly for Xanax for her anxiety. Found to have fever and tachycardia on VS, concerned for infectious etiology i.e. covid vs. PNA vs. UTI. Sepsis lab evaluation performed, IVF and Ofirmev ordered for fever and tachycardia. Patient given 0.25mg Xanax for anxiety. 08/23/19 01:33 Labs notable for: - CBC WNL - Cr 1.6 from 1.1 baseline - glucose 364 ECG NSR with HR 98, QTc 436, no MOISES/D or TWI. Labs drawn, but patient refusing IVF and Ofirmev because she says it will make her stay longer and she is anxious. Refused to get CXR. Requests more Xanax because tablet given earlier not strong enough to help her anxiety and chest pain. Counseled that patient needs further evaluation for infectious etiology vs. cardiac etiology of chest pain, and that the IVF and Ofrimev would help. Patient refuses medications and further evaluation and continues to ask for Xanax despite explanation of my concerns about an underlying heart disorder/infection. No more Xanax was given. Patient left ED AMA and refused further care. Discharge - Discharge Information Problems reviewed: Yes Clinical Impression/Diagnosis: Lightheaded Condition: Stable Disposition: AGAINST MEDICAL ADVICE - Follow up/Referral Referrals: Taco Kc MD [Primary Care Provider] - - Patient Discharge Instructions - Post Discharge Activity
[2019-08-22 23:40] VITALS: BP 94/55; PULSE 110; TEMP 99.8
--- NOTE | 2019-08-23 11:52 | EKG ---
Test Reason : Blood Pressure : / mmHG Vent. Rate : 098 BPM Atrial Rate : 098 BPM P-R Int : 150 ms QRS Dur : 072 ms QT Int : 342 ms P-R-T Axes : 066 070 025 degrees QTc Int : 436 ms NORMAL SINUS RHYTHM POSSIBLE LEFT ATRIAL ENLARGEMENT BORDERLINE ECG WHEN COMPARED WITH ECG OF 26-JAN-2019 16:58, CRITERIA FOR ANTERIOR INFARCT ARE NO LONGER PRESENT Confirmed by JERICA CHANDRA, JENNYFER ([id number]) on 08/23/2019 11:52:19 AM Referred By: Confirmed By:JENNYFER PIZANO MD
--- NOTE | 2019-09-19 12:15 | PDOC ---
Documentation entered by Callie Arteaga SCRIBE, acting as scribe for Anitha Loo MD. Anitha Loo MD: This documentation has been prepared by the Jenni lozano Brenda, SCRIBE, under my direction and personally reviewed by me in its entirety. I confirm that the documentation accurately reflects all work, treatment, procedures, and medical decision making performed by me. Attending Attestation - Resident Resident Name: Ronni Rush - ED Attending Attestation I have performed the following: I have examined & evaluated the patient, The case was reviewed & discussed with the resident, I agree w/resident's findings & plan, Exceptions are as noted - HPI HPI: 09/19/19 12:14 Agree with resident note. - Physicial Exam PE: 09/19/19 12:14 Agree with resident note - Medical Decision Making 09/19/19 12:14 As per resident note, agree with plan. Discharge - Discharge Information Problems reviewed: Yes Clinical Impression/Diagnosis: Lightheaded Condition: Stable Disposition: AGAINST MEDICAL ADVICE - Follow up/Referral Referrals: Taco Kc MD [Primary Care Provider] - - Patient Discharge Instructions - Post Discharge Activity
== END 2019-08-23 02:05 | disposition left against medical advice (07) ==
LOC: JER 20:27
DX: R42 Dizziness and giddiness (principal)
CPT/HCPCS: 36415; 80053; 83605; 84484; 85025; 85610; 85730; 87040; 93005; 93010; 99285-25; U0003

== ENCOUNTER 2019-09-13 22:14 | Inpatient (IN) | payer OTHER ==
[2019-09-13 22:35] VITALS: BMI 25.7
--- NOTE | 2019-09-13 22:36 | PDOC ---
History of Present Illness - General Chief Complaint: Injury Stated Complaint: FALL - History of Present Illness Initial Comments: 09/13/19 22:37 Josie Galloway is a 69F with PMH HTN, T2DM, anxiety, depression, COPD, chronic lower back pain, opioid use presented to the ED after a fall. She was at home by herself then felt dizzy and felt face first. Endorsed LOC. Didn't know why she was dizzy. She denies N/V/chest pain, abdominal pain. Only complainted of the pain. Denies SOB. PMHX: as in HPI PSHX: n/a Meds: home meds. Allergies: none Tob: used to . Etoh: used to. Rec drugs: sometimes. PCP: Yamini. ROS GENERAL/CONSTITUTIONAL: No fever or chills. No weakness. HEAD, EYES, EARS, NOSE AND THROAT: No change in vision. No ear pain or discharge . No sore throat. +LACERATION PAIN. CARDIOVASCULAR: No chest pain or shortness of breath RESPIRATORY: No cough, wheezing, or hemoptysis. GASTROINTESTINAL: No nausea, vomiting, diarrhea or constipation. GENITOURINARY: No dysuria, frequency, or change in urination. MUSCULOSKELETAL: No neck or back pain. SKIN: No rash NEUROLOGIC: No headache, or change in strength/sensation. +vertigo, loss of consciousness ENDOCRINE: No increased thirst. No abnormal weight change HEMATOLOGIC/LYMPHATIC: No anemia, easy bleeding, or history of blood clots. ALLERGIC/IMMUNOLOGIC: No hives or skin allergy. PE GENERAL: Awake, alert, and fully oriented, in MILD acute distress HEAD: normocephalic, LEFT 4 CM LACERATION ABOVE THE EYEBROWS WITH CLOTS EYES: PERRLA, EOMI, sclera anicteric, conjunctiva clear. ENT: Auricles normal inspection, hearing grossly normal, nares patent, oropharynx clear without exudates. Moist mucosa NECK: Normal ROM, supple, no lymphadenopathy, JVD, or masses LUNGS: No distress, speaks full sentences, clear to auscultation bilaterally HEART: Regular rate and rhythm, normal S1 and S2, no murmurs, rubs or gallops, peripheral pulses normal and equal bilaterally. ABDOMEN: Soft, nontender, normoactive bowel sounds. No guarding, no rebound. No masses EXTREMITIES : LIMITED range of motion, no edema. No clubbing or cyanosis. +SHOULDER TENDERNESS WITH LIMITED ROM. NEUROLOGICAL: Cranial nerves II through XII grossly intact. Normal speech, normal gait, no focal sensorimotor deficits SKIN: Warm, Dry, normal turgor, no rashes or lesions noted Past History - Medical History Allergies/Adverse Reactions: Allergies Allergy/AdvReac Type Severity Reaction Status Date / Time No Known Allergies Allergy Verified 09/13/19 22:33 Home Medications: Ambulatory Orders Gabapentin [Neurontin -] 600 mg PO TID PRN 03/28/17 Venlafaxine HCl ER [Effexor Xr -] 150 mg PO DAILY 03/28/17 Acetaminophen [Tylenol .Regular Strength -] 650 mg PO Q6H PRN tablet 09/06/18 Albuterol Sulfate [Albuterol Sulfate Hfa] 8.5 gm IH QID #3 hfa.aer.ad 09/07/18 Budesonide/Formeterol Fumarate [SYMBICORT 80/4.5mcg -] 1 inh PO BID #1 cannister 09/07/18 Lactobacillus Acidophilus [Acidophilus] 1 each PO DAILY #30 capsule 09/27/18 Ammonium Lactate Lotion [Lac-Hydrin 12] 1 applic TP BID #1 bottle 02/08/19 Insulin (Levemir) [Levemir Vial] 25 units SQ AM #5 syringe 02/08/19 Triamcinolone 0.5% Cream [Aristocort 0.5% Cream -] 1 applic TP BID #60 grams 02/08/19 Cephalexin [Keflex] 1 cap PO TID 03/02/19 Insulin Detemir 10 units SCJ DAILY 03/02/19 Ketorolac Tromethamine 10 mg PO Q12H PRN 03/02/19 Melatonin 3 mg PO HS 03/02/19 Quetiapine Fumarate "Xr" [Seroquel XR] 150 mg PO HS 03/02/19 Quetiapine Fumarate [Seroquel -] 200 mg PO Q8H 03/02/19 Anemia: No Asthma: No Cancer: No Cardiac Disorders: No CVA: No COPD: No CHF: No Dementia: No Diabetes: Yes (type 2) GI Disorders: No Disorders: No HTN: Yes Hypercholesterolemia: No Liver Disease: No Psychiatric Problems: Yes Seizures: No Thyroid Disease: No - Surgical History Abdominal Surgery: No Appendectomy: Yes Cardiac Surgery: No Cholecystectomy: No Lung Surgery: No Neurologic Surgery: No Orthopedic Surgery: No - Immunization History Td Vaccination: Yes TDAP Vaccination: Yes Immunization Up to Date: Yes - Psycho-Social/Smoking History Smoking Status: No Smoking History: Never smoked Years of Tobacco Use: 0 Have you smoked in the past 12 months: No Number of Cigarettes Smoked Daily: 5 If you are a former smoker, when did you quit?: 1 month ago Cigars Per Day: 0 Information on smoking cessation initiated: No 'Breaking Loose' booklet given: 08/28/18 - Substance Abuse Hx (Audit-C & DAST Scrn) How often the patient has a drink containing alcohol: Never Score: In Men: 4 or > Positive; In Women: 3 or > Positive: 0 Screen Result (Pos requires Nsg. Audit-10AR): Negative In the last yr the pt used illegal drug/Rx for NonMed reason: No Score: Yes response is considered Positive: 0 Screen Result (Positive result requires Nsg. DAST-10): Negative *Physical Exam - Vital Signs Last Vital Signs Temp Pulse Resp BP Pulse Ox 97.8 F 98 H 16 106/63 96 09/13/19 22:33 09/13/19 22:33 09/13/19 22:33 09/13/19 22:33 09/13/19 22:33 Procedures - Laceration/Wound Repair Face Wound Length: 2.6 to 5.0 cm Wound Explored: clean Wound's Depth, Shape: superficial, irregular, flap Irrigated w/ Saline: Yes Anesthesia: 1% Lidocaine Amount of Anesthetic (ccs): 10 Wound Debrided: minimal Wound Repaired With: Sutures Suture Size/Type: 4:0, nylon Number of Sutures: 6 ED Treatment Course - LABORATORY CBC & Chemistry Diagram: 09/13/19 23:30 09/13/19 23:30 Medical Decision Making - Medical Decision Making 09/14/19 01:29 Josie Galloway is a 69F with PMH HTN, T2DM, anxiety, depression, COPD, chronic lower back pain, opioid use presented to the ED after a fall. Imaging: CT head, cervical, facial bone showed negative result. Lab: CBC, CMP, trop. Elevated Cr/BUN, slightly increase WBC. UA revealed +UTI, will treat with ceftriaxone 1 g. Troponin negative. 09/14/19 01:31 MBMD sent. 09/14/19 03:14 Dr. Skaggs from team called, will admit under inpatient, with telemetry, and under Dr. Hooper. Discharge - Discharge Information Problems reviewed: Yes Clinical Impression/Diagnosis: CKD (chronic kidney disease), Urinary tract infection, Laceration of head Diabetes Qualifiers: Diabetes mellitus type: type 2 Condition: Stable - Follow up/Referral - Patient Discharge Instructions - Post Discharge Activity
[2019-09-13] MEDS ORDERED: LIDOCAINE HCL 1%, 10 MG/ML (20ML VIAL) ONE (22:48)
[2019-09-13] MEDS ORDERED: ACETAMINOPHEN 1000 MG/100 ML VIAL (NON FORMULARY) IVPB ONE (22:55)
[2019-09-13] MEDS ORDERED: DIPHTH,PERTUSS(ACELL),TET 0.5 ML DISP.SYRIN IM ONE ×2 (23:08→23:13)
[2019-09-13] MEDS ORDERED: ACETAMINOPHEN INJECTION 100 ML IVPB ONE (23:12)
[2019-09-13 23:41] LABS: BASO % 0.9 % (0-2.0); EOS % 1.3 % (0-4.5); HEMOGLOBIN 10.5 GM/dL (10.7-15.3); LYMPH % 17.5 % (8-40); MCH 30.3 pg (25.7-33.7); MCHC 32.9 g/dl (32.0-36.0); MEAN CELL VOLUME 92.1 fl (80-96); MEAN PLT VOLUME 9.1 fl (7.5-11.1); MONO % 8.8 % (3.8-10.2); NEUT % 71.5 % (42.8-82.8); PLATELET COUNT 214 K/MM3 (134-434); RBC 3.48 M/mm3 (3.60-5.2); RDW 13.4 % (11.6-15.6); WHITE BLOOD COUNT 11.5 K/mm3 (4.0-10.0)
[2019-09-13 23:50] LABS: INR 1.03 (0.83-1.09); PROTHROMBIN TIME (PATIENT) 12.1 SEC (9.7-13.0)
[2019-09-13 23:52] LABS: ACTIVATED PTT 41.7 SECONDS (25.2-36.5)
--- NOTE | 2019-09-13 23:54 | PDOC ---
Attending Attestation - Resident Resident Name: Az Ritter - ED Attending Attestation I have performed the following: I have examined & evaluated the patient, The case was reviewed & discussed with the resident, I agree w/resident's findings & plan, Exceptions are as noted - HPI HPI: 09/14/19 01:20 See resident HPI - Physicial Exam PE: 09/14/19 01:21 Agree with documented exam - Medical Decision Making 09/14/19 01:21 Pt with facial trauma after complete syncopal episode w/o prodrome f/u labs, trauma imaging, ekg primary closure of wounds dispo per clinical course, may need transfer for traumatic injury, will need admission for syncope eval Discharge - Discharge Information Problems reviewed: Yes Clinical Impression/Diagnosis: CKD (chronic kidney disease), Urinary tract infection, Laceration of head Diabetes Qualifiers: Diabetes mellitus type: type 2 Condition: Stable Disposition: HOME - Follow up/Referral - Patient Discharge Instructions - Post Discharge Activity
[2019-09-14 00:14] LABS: ALBUMIN 3.2 g/dl (3.4-5.0); ALK PHOS 176 U/L (45-117); ANION GAP 10 MMOL/L (8-16); BILIRUBIN,TOTAL 0.5 mg/dL (0.2-1); CALCIUM 8.9 mg/dL (8.5-10.1); CHLORIDE 101 mmol/L (98-107); CO2 26 mmol/L (21-32); CREATININE 1.8 mg/dL (0.55-1.3); GLUCOSE,RANDOM 240 mg/dL (74-106); POTASSIUM 4.7 mmol/L (3.5-5.1); SGOT/AST 21 U/L (15-37); SGPT/ALT 42 U/L (13-61); SODIUM 137 mmol/L (136-145)
[2019-09-14 01:27] LABS: EPI CELLS 6 /uL (0-25.1); HYALINE CASTS 1 /uL (0-3.1); PH,URINE 5.5 (5.0-8.0); URINE APPEARANCE CLOUDY; URINE BACTERIA 1094 /uL (0-1359); URINE BILIRUBIN NEGATIVE (NEGATIVE); URINE COLOR YELLOW; URINE GLUCOSE (UA) 1+ (NEGATIVE); URINE KETONE NEGATIVE (NEGATIVE); URINE LEUK ESTERASE 1+ (NEGATIVE); URINE NITRITE NEGATIVE (NEGATIVE); URINE PROTEIN 1+ (NEGATIVE); URINE RBC 10 /uL (0-23.9); URINE UROBILINOGEN 0.2 mg/dL (0.2-1.0); URINE WBC 342 /uL (0-25.8)
[2019-09-14] MEDS ORDERED: CEFTRIAXONE 1 GM/50 ML BAG ONE ×2 (01:37→09:59)
--- NOTE | 2019-09-14 02:48 | HP ---
CHIEF COMPLAINT: s/p fall HISTORY OF PRESENT ILLNESS: Patient is a 69 year old woman with a PMHx of HTN, CKD (1.4-1.8) NIDDM, anxiety, depression, COPD (not on home O2), chronic LBP and opioid use who presents to the ER after a fall. She was at home alone, felt dizzy and fell face first with associated LOC. Didn't know why she was dizzy. No urinary or fecal incontinence, denies any prodromal symptoms. Of note, pt was discharged from [facility] today after admission for ?chest pain - unable to provide more details. Patient denies chest pain, shortness of breath, abdominal pain, headache, palpitations, fever, chills, nausea, vomiting, diarrhea, constipation, dysuria, frequency, urgency, melena, hematochezia or hematuria. No sick contacts or recent travels. Family history is unremarkable ER course was notable for: (1) H/H- , cR 1.8 (2)CT head, spine, facial bones negative for acute pathology (3)cxr showed cardiomegaly, increased interstitial markings Recent Travel: none PAST SURGICAL HISTORY: appendectomy Social History: Smoking:former 1ppd X 20 yrs Alcohol:none Drugs: none Allergies No Known Allergies Allergy (Verified 09/13/19 22:33) HOME MEDICATIONS: Home Medications Medication Instructions Recorded Gabapentin [Neurontin -] 600 mg PO TID PRN 03/28/17 Venlafaxine HCl ER [Effexor Xr -] 150 mg PO DAILY 03/28/17 Acetaminophen [Tylenol .Regular 650 mg PO Q6H PRN tablet 09/06/18 Strength -] Albuterol Sulfate [Albuterol 8.5 gm IH QID #3 hfa.aer.ad 09/07/18 Sulfate Hfa] Budesonide/Formeterol Fumarate 1 inh PO BID #1 cannister 09/07/18 [SYMBICORT 80/4.5mcg -] Lactobacillus Acidophilus 1 each PO DAILY #30 capsule 09/27/18 [Acidophilus] Ammonium Lactate Lotion 1 applic TP BID #1 bottle 02/08/19 [Lac-Hydrin 12] Insulin (Levemir) [Levemir Vial] 25 units SQ AM #5 syringe 02/08/19 Triamcinolone 0.5% Cream 1 applic TP BID #60 grams 02/08/19 [Aristocort 0.5% Cream -] Cephalexin [Keflex] 1 cap PO TID 03/02/19 Insulin Detemir 10 units SCJ DAILY 03/02/19 Ketorolac Tromethamine 10 mg PO Q12H PRN 03/02/19 Melatonin 3 mg PO HS 03/02/19 Quetiapine Fumarate "Xr" [Seroquel 150 mg PO HS 03/02/19 XR] Quetiapine Fumarate [Seroquel -] 200 mg PO Q8H 03/02/19 REVIEW OF SYSTEMS negative except in HPI PHYSICAL EXAMINATION Vital Signs - 24 hr 09/13/19 22:33 Temperature 97.8 F Pulse Rate 98 H Respiratory 16 Rate Blood Pressure 106/63 O2 Sat by Pulse 96 Oximetry (%) GENERAL: Awake, alert, and fully oriented, in no acute distress. Head: Normocephalic; laceration above left eyebrow with stitches present. Neck: Supple Chest: Good effort. Clear to auscultation. Heart: Regular. No S3, rub or murmur Abdomen: Not distended, soft, nontender and no HSM. No rebound or guarding. Normal bowel sounds. Ext: Peripheral pulses intact. No leg edema. Tender left shoulder with limited ROM. Skin: Warm and dry. No petechiae, rash or ecchymosis. Neuro: Alert. Oriented x3. CN 2-12 grossly intact. Sensation grossly intact in all four extremities, 5/5 power and tone b/l upper and lower extremities Psych: Appropriate mood and affect. Good insight. Laboratory Results - last 24 hr 09/13/19 09/13/19 09/13/19 23:30 23:30 23:30 WBC 11.5 H RBC 3.48 L Hgb 10.5 L Hct 32.0 L D MCV 92.1 MCH 30.3 MCHC 32.9 RDW 13.4 Plt Count 214 D MPV 9.1 Absolute Neuts (auto) 8.2 H Neutrophils % 71.5 Lymphocytes % 17.5 D Monocytes % 8.8 D Eosinophils % 1.3 Basophils % 0.9 Nucleated RBC % 0 PT with INR 12.10 INR 1.03 PTT (Actin FS) 41.7 H Sodium 137 Potassium 4.7 Chloride 101 Carbon Dioxide 26 Anion Gap 10 BUN 29.0 H Creatinine 1.8 H Est GFR (CKD-EPI)AfAm 32.48 Est GFR (CKD-EPI)NonAf 28.02 Random Glucose 240 H Calcium 8.9 Total Bilirubin 0.5 AST 21 ALT 42 Alkaline Phosphatase 176 H Troponin I < 0.02 Total Protein 8.0 Albumin 3.2 L Urine Color Urine Appearance Urine pH Ur Specific Park Urine Protein Urine Glucose (UA) Urine Ketones Urine Blood Urine Nitrite Urine Bilirubin Urine Urobilinogen Ur Leukocyte Esterase Urine WBC (Auto) Urine RBC (Auto) Urine Casts (Auto) U Epithel Cells (Auto) Urine Bacteria (Auto) Blood Type Antibody Screen 09/13/19 09/14/19 23:30 00:52 WBC RBC Hgb Hct MCV MCH MCHC RDW Plt Count MPV Absolute Neuts (auto) Neutrophils % Lymphocytes % Monocytes % Eosinophils % Basophils % Nucleated RBC % PT with INR INR PTT (Actin FS) Sodium Potassium Chloride Carbon Dioxide Anion Gap BUN Creatinine Est GFR (CKD-EPI)AfAm Est GFR (CKD-EPI)NonAf Random Glucose Calcium Total Bilirubin AST ALT Alkaline Phosphatase Troponin I Total Protein Albumin Urine Color Yellow Urine Appearance Cloudy Urine pH 5.5 Ur Specific Park 1.012 Urine Protein 1+ H Urine Glucose (UA) 1+ H Urine Ketones Negative Urine Blood Negative Urine Nitrite Negative Urine Bilirubin Negative Urine Urobilinogen 0.2 Ur Leukocyte Esterase 1+ H Urine WBC (Auto) 342 Urine RBC (Auto) 10 Urine Casts (Auto) 1 U Epithel Cells (Auto) 6 Urine Bacteria (Auto) 1094 Blood Type A POSITIVE Antibody Screen Negative ASSESSMENT/PLAN: Patient is a 69 year old woman with a PMHx of HTN, CKD (1.4-1.8) NIDDM, anxiety, depression, COPD (not on home O2), chronic LBP and opioid use who presents to the ER after a fall. She was at home alone, felt dizzy and fell face first with associated LOC. Didn't know why she was dizzy. #Syncope/Fall/Head trauma/UTI - - Cause unclear, but may be related to her UTI or polypharmacy as she is on seroquel TID and xanax scheduled daily. - No acute abnormality reported on head CT, facial bone CT and C-spine CT. - CXR shows cardiomegaly, hilar prominence and increased interstitial markings. - Laceration over left eyebrow sutured and given DPT vaccine. - UA 1+ leuk est with >1000 bacteria, wbc >300, 1+ protein, 1+glucose - Getting IV Rocephin daily for UTI. No shoulder fracture noted on the CXR, but if shoulder pain persists, will get a CT scan. Use Tylenol for pain control. - urine culture ordered - EKG shows NSR at 94/minute and QTc [address]-T wave changes. - Initial troponin is negative. - Will monitor on telemetry, repeat troponin, get ECHO, fasting lipids, carotid doppler, brain MRI and consult Cardiology/Neurology/PT. Do neurochecks. Implement seizure, fall and aspiration precautions. - recommend day team gets more info on [facility] recent admission. - Viral testing for COVID-19 ordered and patient placed on airborne, droplet and contact isolation. #Anemia - Likely partly due to CKD. - basic anemia work up including serial stool guaiacs, reticulocyte count and iron studies. #CKD with superimposed ?ELIZABETH Has risk factors for CKD. - Will get kidney sonogram, urine protein/creatinine ratio, hydrate gently, monitor urine output and consult Nephrology - Avoid nephrotoxic agents - gentle hydration with NS 42/hr - no signs of necessity for dialysis at this time DVT ppx: hep 5K TID Visit type - Medication Review Med list reviewed for High Risk Meds patients 65 and older: Yes - Emergency Visit Emergency Visit: Yes ED Registration Date: 09/14/19 Care time: The patient presented to the Emergency Department on the above date and was hospitalized for further evaluation of their emergent condition. - New Patient This patient is new to me today: Yes Date on this admission: 09/18/19 - Critical Care Critical Care patient: No ATTENDING PHYSICIAN STATEMENT I saw and evaluated the patient. I reviewed the resident's note and discussed the case with the resident. I agree with the resident's findings and plan as documented. SUBJECTIVE: OBJECTIVE: ASSESSMENT AND PLAN:
--- NOTE | 2019-09-14 03:00 | PN ---
Teaching Attending Note Name of Resident: Gus Coyne ATTENDING PHYSICIAN STATEMENT I saw and evaluated the patient. I reviewed the resident's note and discussed the case with the resident. I agree with the resident's findings and plan as documented. SUBJECTIVE: Patient is a 69 year old woman with a PMH of HTN, NIDDM, Anxiety, Depression, COPD, Chronic lower back pain and Opioid use who present to the ER after a fall. She was at home alone, felt dizzy and fell face first with associated LOC. Didn't know why she was dizzy. No urinary or fecal incontinence. Was discharged for [facility] today after admission for ?chest pain - unable to provide more details. Patient denies chest pain, shortness of breath, abdominal pain, headache, palpitations, fever, chills, nausea, vomiting, diarrhea, constipation, dysuria, frequency, urgency, melena, hematochezia or hematuria. Denies alcohol, tobacco or illicit drug use. No sick contacts or recent travels. Family history is unremarkable. OBJECTIVE: Alert and not orthostatic Vital Signs Period Temp Pulse Resp BP Sys/Boothe Pulse Ox Last 24 Hr 97.8 F 98 16 106/63 96 HEENT: No Jaundice, eye redness or discharge, PERRLA, EOMI. Normocephalic; laceration above left eyebrow. External ears are normal and hearing is grossly intact. No nasal discharge. Neck: Supple, nontender. No palpable adenopathy or thyromegaly. No JVD Chest: Good effort. Clear to auscultation and percussion. Heart: Regular. No S3, rub or murmur Abdomen: Not distended, soft, nontender and no HSM. No rebound or guarding. Normal bowel sounds. Ext: Peripheral pulses intact. No leg edema. Tender left shoulder with limited ROM. Skin: Warm and dry. No petechiae, rash or ecchymosis. Neuro: Alert. Oriented x3. CN 2-12 grossly intact. Sensation grossly intact in all four extremities and DTR are symmetric. Psych: Appropriate mood and affect. Good insight. Home Medications Medication Instructions Recorded Gabapentin [Neurontin -] 600 mg PO TID PRN 03/28/17 Venlafaxine HCl ER [Effexor Xr -] 150 mg PO DAILY 03/28/17 Acetaminophen [Tylenol .Regular 650 mg PO Q6H PRN tablet 09/06/18 Strength -] Albuterol Sulfate [Albuterol 8.5 gm IH QID #3 hfa.aer.ad 09/07/18 Sulfate Hfa] Budesonide/Formeterol Fumarate 1 inh PO BID #1 cannister 09/07/18 [SYMBICORT 80/4.5mcg -] Lactobacillus Acidophilus 1 each PO DAILY #30 capsule 09/27/18 [Acidophilus] Ammonium Lactate Lotion 1 applic TP BID #1 bottle 02/08/19 [Lac-Hydrin 12] Insulin (Levemir) [Levemir Vial] 25 units SQ AM #5 syringe 02/08/19 Triamcinolone 0.5% Cream 1 applic TP BID #60 grams 02/08/19 [Aristocort 0.5% Cream -] Cephalexin [Keflex] 1 cap PO TID 03/02/19 Insulin Detemir 10 units SCJ DAILY 03/02/19 Ketorolac Tromethamine 10 mg PO Q12H PRN 03/02/19 Melatonin 3 mg PO HS 03/02/19 Quetiapine Fumarate "Xr" [Seroquel 150 mg PO HS 03/02/19 XR] Quetiapine Fumarate [Seroquel -] 200 mg PO Q8H 03/02/19 Abnormal Lab Results 09/13/19 09/13/19 09/13/19 23:30 23:30 23:30 WBC 11.5 H RBC 3.48 L Hgb 10.5 L Hct 32.0 L D Absolute Neuts (auto) 8.2 H PTT (Actin FS) 41.7 H BUN 29.0 H Creatinine 1.8 H Random Glucose 240 H Alkaline Phosphatase 176 H Albumin 3.2 L Urine Protein Urine Glucose (UA) Ur Leukocyte Esterase 09/14/19 00:52 WBC RBC Hgb Hct Absolute Neuts (auto) PTT (Actin FS) BUN Creatinine Random Glucose Alkaline Phosphatase Albumin Urine Protein 1+ H Urine Glucose (UA) 1+ H Ur Leukocyte Esterase 1+ H Current Medications Generic Name Dose Route Start Last Admin Trade Name Freq PRN Reason Stop Dose Admin Heparin Sodium (Porcine) 5,000 unit 09/14/19 06:00 Heparin - SQ TID KACIE Ceftriaxone Sodium 1 gm/ 50 mls @ 100 mls/hr 09/14/19 10:00 Dextrose IVPB DAILY KACIE ASSESSMENT AND PLAN: 1. Syncope/Fall/Head trauma/UTI - Cause unclear, but may be related to her UTI or medication side effect. No acute abnormality reported on head CT, facial bone CT and C-spine CT. CXR shows cardiomegaly, hilar prominence and increased interstitial markings. Laceration over left eyebrow sutured and given DPT vaccine. Getting IV Rocephin for UTI. No shoulder fracture noted on the CXR, but if shoulder pain persists, will get a CT scan. Use Tylenol for pain control. EKG shows NSR at 94/minute, LAE and QTc [address]-T wave irais nges. Initial troponin is negative. Will admit to telemetry, repeat troponin, get ECHO, fasting lipids, carotid doppler, brain MRI and consult Cardiology/Neurology/PT. Do neurochecks. Implement seizure, fall and aspiration precautions. During the day will get more information from [facility] about her recent admission. Viral testing for COVID-19 ordered and patient placed on airborne, droplet and contact isolation. Will continue comprehensive care for all of patients comorbid conditions. 2. Hypoalbuminemia - Possibly due to combined effects of malnutrition and inflammation associated with comorbid conditions. Will ensure adequate dietary protein intake and also consult ship laborer. 3. Uncontrolled DM For now, we will hold the home diabetes drugs and implement sliding scale insulin regimen. Provide comprehensive diabetes care with patient teaching and counseling about the importance of adherence to prescribed diabetes regimen, euglycemia, eye care and foot care. 4. CKD with superimposed ?ELIZABETH Has risk factors for CKD. Will get kidney sonogram, urine protein/creatinine ratio, hydrate gently, monitor urine output and consult Nephrology. Avoid nephrotoxic agents such as NSAIDS, aminoglycosides, contrast dyes and certain Alternative medicine products. 5. Anemia - Likely partly due to CKD. Will do basic anemia work up including serial stool guaiacs, reticulocyte count and iron studies. 6. Hypertension BP is low. Antihypertensive drugs not needed at this time, though she would benefit from ACEI/ARB therapy once stable. Patient counseled on the injurious effects of uncontrolled hypertension. Nonpharmacologic measures to control hypertension like weight loss, salt restriction and exercise stressed. Importance of adherence to treatment regimen and attainment of normotension emphasized. 7. DVT prophylaxis - Heparin 5000u sq tid. 8. Advance directives - Full code
[2019-09-14] MEDS ORDERED: SODIUM CHLORIDE 0.9% 500 ML INFUS.BAG IV ONE (04:15)
[2019-09-14] MEDS ORDERED: HEPARIN NA (PORCINE) 5,000 UNITS/ML 1ML VIAL SQ SCH (06:00)
[2019-09-14] MEDS ORDERED: HEPARIN NA (PORCINE) 5,000 UNITS/ML 1ML VIAL ONE (06:04)
[2019-09-14] MEDS ORDERED: SODIUM CHLORIDE 1,000 ML IV SCH ×2 (06:45→07:43)
[2019-09-14] MEDS ORDERED: QUEtiapine FUMARATE 200 MG TABLET PO ONE (06:54)
[2019-09-14] MEDS ORDERED: QUEtiapine FUMARATE 100 MG TABLET (FP) ONE (06:59)
[2019-09-14 07:02] VITALS: BP 142/64; PULSE 96; TEMP 98.3
--- NOTE | 2019-09-14 09:52 | CONSULT ---
Consult - text type - Consultation Consultation Note: Neurology CHIEF COMPLAINT: s/p fall HISTORY OF PRESENT ILLNESS: Patient is a 69 year old woman with a PMHx of HTN, CKD (1.4-1.8) NIDDM, anxiety, depression, COPD (not on home O2), chronic LBP and opioid use who presents to the ER after a fall. She was at home alone, felt dizzy and fell face first with associated LOC. Didn't know why she was dizzy. No urinary or fecal incontinence, denies any prodromal symptoms. Of note, pt was discharged from [facility] same day after admission for ?chest pain - unable to provide more details. Patient denies chest pain, shortness of breath, abdominal pain, headache, palpitations, fever, chills, nausea, vomiting, diarrhea, constipation, dysuria, frequency, urgency, melena, hematochezia or hematuria. No sick contacts or recent travels. Family history is unremarkable. CT head, spine, facial bones negative for acute pathology. CXR showed cardiomegaly, increased interstitial markings. During encounter, patient inquiring about taking Seroquel. Informed her that primary team would evaluate that. She was mentating during my conversation. Labs were suspicious for underlying urinary tract infection. Adequate hydration would be recommended. Does not require further imaging of the brain. PMH As above Family: HTN PAST SURGICAL HISTORY: appendectomy Social History: Smoking:former 1ppd X 20 yrs Alcohol:none Drugs: none Allergies No Known Allergies Allergy (Verified 09/13/19 22:33) HOME MEDICATIONS: Home Medications Medication Instructions Recorded Gabapentin [Neurontin -] 600 mg PO TID PRN 03/28/17 Venlafaxine HCl ER [Effexor Xr -] 150 mg PO DAILY 03/28/17 Acetaminophen [Tylenol .Regular 650 mg PO Q6H PRN tablet 09/06/18 Strength -] Albuterol Sulfate [Albuterol 8.5 gm IH QID #3 hfa.aer.[email or web address] 09/07/18 Sulfate Hfa] Budesonide/Formeterol Fumarate 1 inh PO BID #1 cannister 09/07/18 [SYMBICORT 80/4.5mcg -] Lactobacillus Acidophilus 1 each PO DAILY #30 capsule 09/27/18 [Acidophilus] Ammonium Lactate Lotion 1 applic TP BID #1 bottle 02/08/19 [Lac-Hydrin 12] Insulin (Levemir) [Levemir Vial] 25 units SQ AM #5 syringe 02/08/19 Triamcinolone 0.5% Cream 1 applic TP BID #60 grams 02/08/19 [Aristocort 0.5% Cream -] Cephalexin [Keflex] 1 cap PO TID 03/02/19 Insulin Detemir 10 units SCJ DAILY 03/02/19 Ketorolac Tromethamine 10 mg PO Q12H PRN 03/02/19 Melatonin 3 mg PO HS 03/02/19 Quetiapine Fumarate "Xr" [Seroquel 150 mg PO HS 03/02/19 XR] Quetiapine Fumarate [Seroquel -] 200 mg PO Q8H 03/02/19 REVIEW OF SYSTEMS negative except in HPI PHYSICAL EXAMINATION Vital Signs - 24 hr 09/13/19 22:33 Temperature 97.8 F Pulse Rate 98 H Respiratory 16 Rate Blood Pressure 106/63 O2 Sat by Pulse 96 Oximetry (%) GENERAL: Awake, alert, and fully oriented, in no acute distress. Head: Normocephalic; laceration above left eyebrow with stitches present. Neck: Supple Chest: Good effort. Clear to auscultation. Heart: Regular. No S3, rub or murmur Abdomen: Not distended, soft, nontender and no HSM. No rebound or guarding. Normal bowel sounds. Ext: Peripheral pulses intact. No leg edema. Tender left shoulder with limited ROM. Skin: Warm and dry. No petechiae, rash or ecchymosis. Neuro: Alert. Oriented x3. CN 2-12 grossly intact. Sensation grossly intact in all four extremities, 5/5 power and tone b/l upper and lower extremities Psych: Appropriate mood and affect. Good insight. Laboratory Results - last 24 hr 09/13/19 09/13/19 09/13/19 23:30 23:30 23:30 WBC 11.5 H RBC 3.48 L Hgb 10.5 L Hct 32.0 L D MCV 92.1 MCH 30.3 MCHC 32.9 RDW 13.4 Plt Count 214 D MPV 9.1 Absolute Neuts (auto) 8.2 H Neutrophils % 71.5 Lymphocytes % 17.5 D Monocytes % 8.8 D Eosinophils % 1.3 Basophils % 0.9 Nucleated RBC % 0 PT with INR 12.10 INR 1.03 PTT (Actin FS) 41.7 H Sodium 137 Potassium 4.7 Chloride 101 Carbon Dioxide 26 Anion Gap 10 BUN 29.0 H Creatinine 1.8 H Est GFR (CKD-EPI)AfAm 32.48 Est GFR (CKD-EPI)NonAf 28.02 Random Glucose 240 H Calcium 8.9 Total Bilirubin 0.5 AST 21 ALT 42 Alkaline Phosphatase 176 H Troponin I < 0.02 Total Protein 8.0 Albumin 3.2 L Urine Color Urine Appearance Urine pH Ur Specific [place] Urine Protein Urine Glucose (UA) Urine Ketones Urine Blood Urine Nitrite Urine Bilirubin Urine Urobilinogen Ur Leukocyte Esterase Urine WBC (Auto) Urine RBC (Auto) Urine Casts (Auto) U Epithel Cells (Auto) Urine Bacteria (Auto) Blood Type Antibody Screen 09/13/19 09/14/19 23:30 00:52 WBC RBC Hgb Hct MCV MCH MCHC RDW Plt Count MPV Absolute Neuts (auto) Neutrophils % Lymphocytes % Monocytes % Eosinophils % Basophils % Nucleated RBC % PT with INR INR PTT (Actin FS) Sodium Potassium Chloride Carbon Dioxide Anion Gap BUN Creatinine Est GFR (CKD-EPI)AfAm Est GFR (CKD-EPI)NonAf Random Glucose Calcium Total Bilirubin AST ALT Alkaline Phosphatase Troponin I Total Protein Albumin Urine Color Yellow Urine Appearance Cloudy Urine pH 5.5 Ur Specific [place] 1.012 Urine Protein 1+ H Urine Glucose (UA) 1+ H Urine Ketones Negative Urine Blood Negative Urine Nitrite Negative Urine Bilirubin Negative Urine Urobilinogen 0.2 Ur Leukocyte Esterase 1+ H Urine WBC (Auto) 342 Urine RBC (Auto) 10 Urine Casts (Auto) 1 U Epithel Cells (Auto) 6 Urine Bacteria (Auto) 1094 Blood Type A POSITIVE Antibody Screen Negative ASSESSMENT/PLAN: 69 year old woman with a PMHx of HTN, CKD (1.4-1.8) NIDDM, anxiety, depression, COPD (not on home O2), chronic LBP and opioid use who presents to the ER after a fall. She was at home alone, felt dizzy and fell face first with associated LOC. Didn't know why she was dizzy. No urinary or fecal incontinence, denies any prodromal symptoms. Of note, pt was discharged from [facility] same day after admission for ?chest pain - unable to provide more details. Patient denies chest pain, shortness of breath, abdominal pain, headache, palpitations, fever, chills, nausea, vomiting, diarrhea, constipation, dysuria, frequency, urgency, melena, hematochezia or hematuria. No sick contacts or recent travels. Family history is unremarkable. CT head, spine, facial bones negative for acute pathology. CXR showed cardiomegaly, increased interstitial markings. During encounter, patient inquiring about taking Seroquel. Informed her that primary team would evaluate that. She was mentating during my conversation. Labs were suspicious for underlying urinary tract infection. Adequate hydration would be recommended. Does not require further imaging of the brain. continue management of underlying urinary tract infection, antibiotics as per primary team. Monitor mental status. Continue management for underlying anemia. fall precautions, physical therapy as tolerated.
[2019-09-14] MEDS ORDERED: CEFTRIAXONE 1 GM in DEXTROSE 5%-WATER - 50 ML IVPB SCH (10:00)
[2019-09-14 11:04] LABS: BASO % 0.2 % (0-2.0); EOS % 1.8 % (0-4.5); HEMATOCRIT 27.3 % (32.4-45.2); LYMPH % 17.8 % (8-40); MCH 30.6 pg (25.7-33.7); MCHC 32.9 g/dl (32.0-36.0); MEAN CELL VOLUME 93.1 fl (80-96); MEAN PLT VOLUME 8.8 fl (7.5-11.1); NEUT % 70.2 % (42.8-82.8); PLATELET COUNT 190 K/MM3 (134-434); RBC 2.93 M/mm3 (3.60-5.2); RDW 13.5 % (11.6-15.6); WHITE BLOOD COUNT 10.9 K/mm3 (4.0-10.0)
[2019-09-14 11:27] LABS: MAGNESIUM 1.9 mg/dL (1.8-2.4); PHOSPHOROUS 2.9 mg/dL (2.5-4.9)
[2019-09-14 11:28] LABS: IRON SERUM 50 ug/dL (50-175); TOTAL IRON BINDING CAPACITY 263 ug/dL (250-450)
[2019-09-14 11:34] LABS: ALBUMIN 2.6 g/dl (3.4-5.0); BILIRUBIN,TOTAL 0.3 mg/dL (0.2-1); BLOOD UREA NITROGEN 26.2 mg/dL (7-18); CALCIUM 8.2 mg/dL (8.5-10.1); CREATININE 1.4 mg/dL (0.55-1.3); POTASSIUM 4.4 mmol/L (3.5-5.1); TOT PROT 6.7 g/dl (6.4-8.2)
--- NOTE | 2019-09-14 12:22 | ECHO ---
Version: 1 Name: AISHA FARMER Exam: Adult Echocardiogram Study Date: 09/14/2019, 11:01 AM Age: 69 Years MMode/2D Measurements & Calculations IVSd: 0.91 cm LVIDs: 2.9 cm LVIDd: 4.5 cm LVPWd: 0.85 cm LAV (MOD-bp): 52.6 ml ACS: 1.61 cm Ao root diam: 3.1 cm LVOT diam: 2.02 cm LA dimension: 3.3 cm Doppler Measurements & Calculations MV E max patrick: 99.8 cm/sec Med E/e': 17.0 MV A max patrick: 170.1 cm/sec Med Peak E' Patrick: 5.9 cm/sec MV E/A: 0.59 Lat E/e': 15.5 Lat Peak E' Patrick: 6.4 cm/sec Ao max P.1 mmHg BLAIR(I,D): 3.0 cm Ao mean P.1 mmHg LV V1 mean: 107.1 cm/sec Ao V2 max: 173.7 cm/sec LV V1 mean P.4 mmHg AI P1/2t: 461.6 msec TR max patrick: 179.1 cm/sec TR max P.8 mmHg Left Ventricle Left ventricular systolic function is normal. Ejection Fraction = 55-60%. The transmitral spectral D oppler flow pattern is suggestive of impaired LV relaxation. Right Ventricle The right ventricle is normal in size and function. Atria The left atrium is mildly dilated. Mitral Valve There is mild mitral valve thickening. There is mild mitral annular calcification. There is no usha l valve stenosis. There is trace to mild mitral regurgitation. Tricuspid Valve The tricuspid valve is normal in structure and function. There is trace tricuspid regurgitation. Aortic Valve There is mild aortic sclerosis.;. No hemodynamically significant valvular aortic stenosis. Mild aort ic regurgitation. Pulmonic Valve The pulmonic valve is not well seen, but is grossly normal. There is no pulmonic valvular stenosis. Great Vessels The aortic root is normal size. Pericardium/Pleura There is no pericardial effusion. Tech Comments TDS. Patient in pain and requested I end test early. Would not let me press. Poor acoustic windows. Summary Statements Left ventricular systolic function is normal. Ejection Fraction = 55-60%. The transmitral spectral Doppler flow pattern is suggestive of impaired LV relaxation. The left atrium is mildly dilated. There is mild mitral valve thickening. There is mild mitral annular calcification. There is trace to mild mitral regurgitation. There is mild aortic sclerosis.; Mild aortic regurgitation. There is no pericardial effusion. MD Gil *Hannah 09/14/2019, 12:21 PM Ordering Physician: Gus De Los Santos Referring Physician: GUS DE LOS SANTOS Performed By: Shreya Jack
--- NOTE | 2019-09-14 12:38 | EKG ---
Test Reason : Blood Pressure : / mmHG Vent. Rate : 094 BPM Atrial Rate : 094 BPM P-R Int : 148 ms QRS Dur : 072 ms QT Int : 344 ms P-R-T Axes : 067 064 039 degrees QTc Int : 430 ms NORMAL SINUS RHYTHM POSSIBLE LEFT ATRIAL ENLARGEMENT POSSIBLE ANTERIOR INFARCT , AGE UNDETERMINED ABNORMAL ECG WHEN COMPARED WITH ECG OF 22-AUG-2019 21:43, NO SIGNIFICANT CHANGE WAS FOUND Confirmed by MAURI SHEFFIELD MD ([id number]) on 09/14/2019 12:37:54 PM Referred By: Confirmed By:MAURI SHEFFIELD MD
--- NOTE | 2019-09-14 13:40 | PN ---
Teaching Attending Note Name of Resident: Dallas Joel ATTENDING PHYSICIAN STATEMENT I saw and evaluated the patient. I reviewed the resident's note and discussed the case with the resident. I agree with the resident's findings and plan as documented. SUBJECTIVE: Feeling well - no headache, lightheadedness, CP, palpitations, abdominal pain, nausea, vomiting, dysuria. No fever/chills. OBJECTIVE: Afebrile, Hemodynamicaly Stable. Last Vital Signs Temp Pulse Resp BP Pulse Ox 98.3 F 96 H 18 142/64 98 09/14/19 07:01 09/14/19 07:01 09/14/19 07:01 09/14/19 07:01 09/14/19 07:40 HEENT - L forehead laceration s/p sutures, bruising over nose. MI. EOMI. Heart - S1, S2, SM Lungs - clear to auscultation Abdomen - Soft, non-tender. Bowel Sounds normal. Extremities - no edema, no calf tenderness. Neuro - AAO x 3. Tone/Power normal. Laboratory Results - last 24 hr 09/13/19 09/13/19 09/13/19 23:30 23:30 23:30 WBC 11.5 H RBC 3.48 L Hgb 10.5 L Hct 32.0 L D MCV 92.1 MCH 30.3 MCHC 32.9 RDW 13.4 Plt Count 214 D MPV 9.1 Absolute Neuts (auto) 8.2 H Neutrophils % 71.5 Lymphocytes % 17.5 D Monocytes % 8.8 D Eosinophils % 1.3 Basophils % 0.9 Nucleated RBC % 0 Retic Count PT with INR 12.10 INR 1.03 PTT (Actin FS) 41.7 H Sodium 137 Potassium 4.7 Chloride 101 Carbon Dioxide 26 Anion Gap 10 BUN 29.0 H Creatinine 1.8 H Est GFR (CKD-EPI)AfAm 32.48 Est GFR (CKD-EPI)NonAf 28.02 Random Glucose 240 H Hemoglobin A1c % Calcium 8.9 Phosphorus Magnesium Iron TIBC Iron Saturation Unsaturated IBC Ferritin Total Bilirubin 0.5 AST 21 ALT 42 Alkaline Phosphatase 176 H Troponin I < 0.02 Total Protein 8.0 Albumin 3.2 L Triglycerides Cholesterol Total LDL Cholesterol HDL Cholesterol Vitamin B12 Serum Folate TSH Urine Color Urine Appearance Urine pH Ur Specific [place] Urine Protein Urine Glucose (UA) Urine Ketones Urine Blood Urine Nitrite Urine Bilirubin Urine Urobilinogen Ur Leukocyte Esterase Urine WBC (Auto) Urine RBC (Auto) Urine Casts (Auto) U Epithel Cells (Auto) Urine Bacteria (Auto) Blood Type Antibody Screen 09/13/19 09/14/19 09/14/19 23:30 00:52 10:37 WBC 10.9 H RBC 2.93 L Hgb 9.0 L Hct 27.3 L MCV 93.1 MCH 30.6 MCHC 32.9 RDW 13.5 Plt Count 190 MPV 8.8 Absolute Neuts (auto) 7.6 Neutrophils % 70.2 Lymphocytes % 17.8 Monocytes % 10.0 Eosinophils % 1.8 Basophils % 0.2 Nucleated RBC % 0 Retic Count PT with INR INR PTT (Actin FS) Sodium Potassium Chloride Carbon Dioxide Anion Gap BUN Creatinine Est GFR (CKD-EPI)AfAm Est GFR (CKD-EPI)NonAf Random Glucose Hemoglobin A1c % Calcium Phosphorus Magnesium Iron TIBC Iron Saturation Unsaturated IBC Ferritin Total Bilirubin AST ALT Alkaline Phosphatase Troponin I Total Protein Albumin Triglycerides Cholesterol Total LDL Cholesterol HDL Cholesterol Vitamin B12 Serum Folate TSH Urine Color Yellow Urine Appearance Cloudy Urine pH 5.5 Ur Specific [place] 1.012 Urine Protein 1+ H Urine Glucose (UA) 1+ H Urine Ketones Negative Urine Blood Negative Urine Nitrite Negative Urine Bilirubin Negative Urine Urobilinogen 0.2 Ur Leukocyte Esterase 1+ H Urine WBC (Auto) 342 Urine RBC (Auto) 10 Urine Casts (Auto) 1 U Epithel Cells (Auto) 6 Urine Bacteria (Auto) 1094 Blood Type A POSITIVE Antibody Screen Negative 09/14/19 09/14/19 09/14/19 10:37 10:37 10:37 WBC RBC Hgb Hct MCV MCH MCHC RDW Plt Count MPV Absolute Neuts (auto) Neutrophils % Lymphocytes % Monocytes % Eosinophils % Basophils % Nucleated RBC % Retic Count 3.92 H D PT with INR INR PTT (Actin FS) Sodium 139 Potassium 4.4 Chloride 105 Carbon Dioxide 28 Anion Gap 5 L BUN 26.2 H Creatinine 1.4 H Est GFR (CKD-EPI)AfAm 44.01 Est GFR (CKD-EPI)NonAf 37.97 Random Glucose 268 H Hemoglobin A1c % 11.1 H Calcium 8.2 L Phosphorus Magnesium Iron TIBC Iron Saturation Unsaturated IBC Ferritin Total Bilirubin 0.3 AST 13 L ALT 29 Alkaline Phosphatase 142 H Troponin I Total Protein 6.7 Albumin 2.6 L Triglycerides Cholesterol Total LDL Cholesterol HDL Cholesterol Vitamin B12 Serum Folate TSH 1.35 Urine Color Urine Appearance Urine pH Ur Specific [place] Urine Protein Urine Glucose (UA) Urine Ketones Urine Blood Urine Nitrite Urine Bilirubin Urine Urobilinogen Ur Leukocyte Esterase Urine WBC (Auto) Urine RBC (Auto) Urine Casts (Auto) U Epithel Cells (Auto) Urine Bacteria (Auto) Blood Type Antibody Screen 09/14/19 09/14/19 09/14/19 10:37 10:37 10:37 WBC RBC Hgb Hct MCV MCH MCHC RDW Plt Count MPV Absolute Neuts (auto) Neutrophils % Lymphocytes % Monocytes % Eosinophils % Basophils % Nucleated RBC % Retic Count PT with INR INR PTT (Actin FS) Sodium Potassium Chloride Carbon Dioxide Anion Gap BUN Creatinine Est GFR (CKD-EPI)AfAm Est GFR (CKD-EPI)NonAf Random Glucose Hemoglobin A1c % Calcium Phosphorus Magnesium Iron 50 TIBC 263 Iron Saturation 19 Unsaturated IBC 213 Ferritin 137.3 Total Bilirubin AST ALT Alkaline Phosphatase Troponin I < 0.02 Total Protein Albumin Triglycerides Cholesterol Total LDL Cholesterol HDL Cholesterol Vitamin B12 Serum Folate TSH Urine Color Urine Appearance Urine pH Ur Specific [place] Urine Protein Urine Glucose (UA) Urine Ketones Urine Blood Urine Nitrite Urine Bilirubin Urine Urobilinogen Ur Leukocyte Esterase Urine WBC (Auto) Urine RBC (Auto) Urine Casts (Auto) U Epithel Cells (Auto) Urine Bacteria (Auto) Blood Type Antibody Screen 09/14/19 09/14/19 10:37 10:37 WBC RBC Hgb Hct MCV MCH MCHC RDW Plt Count MPV Absolute Neuts (auto) Neutrophils % Lymphocytes % Monocytes % Eosinophils % Basophils % Nucleated RBC % Retic Count PT with INR INR PTT (Actin FS) Sodium Potassium Chloride Carbon Dioxide Anion Gap BUN Creatinine Est GFR (CKD-EPI)AfAm Est GFR (CKD-EPI)NonAf Random Glucose Hemoglobin A1c % Calcium Phosphorus 2.9 Magnesium 1.9 Iron TIBC Iron Saturation Unsaturated IBC Ferritin Total Bilirubin AST ALT Alkaline Phosphatase Troponin I Total Protein Albumin Triglycerides 220 H Cholesterol 131 Total LDL Cholesterol 66 HDL Cholesterol 28 L Vitamin B12 557 Serum Folate 27 H TSH Urine Color Urine Appearance Urine pH Ur Specific [place] Urine Protein Urine Glucose (UA) Urine Ketones Urine Blood Urine Nitrite Urine Bilirubin Urine Urobilinogen Ur Leukocyte Esterase Urine WBC (Auto) Urine RBC (Auto) Urine Casts (Auto) U Epithel Cells (Auto) Urine Bacteria (Auto) Blood Type Antibody Screen Current Medications Generic Name Dose Route Start Last Admin Trade Name Sneha PRN Reason Stop Dose Admin Heparin Sodium (Porcine) 5,000 unit 09/14/19 06:00 09/14/19 06:33 Heparin - SQ 5,000 unit TID KACIE Administration Ceftriaxone Sodium 1 gm/ 50 mls @ 100 mls/hr 09/14/19 10:00 09/14/19 10:06 Dextrose IVPB 100 mls/hr DAILY KACIE Administration Sodium Chloride 1,000 mls @ 75 mls/hr 09/14/19 07:43 09/14/19 08:33 Normal Saline - IV 75 mls/hr ASDIR KACIE Administration Insulin Aspart 1 vial 09/14/19 16:30 Novolog Vial Sliding Scale - SQ ACHS [facility] Protocol Quetiapine Fumarate 200 mg 09/14/19 14:00 Seroquel - PO 09/14/19 14:01 ONCE ONE Home Medications Medication Instructions Recorded Aspirin [ASA -] 81 mg PO DAILY 09/14/19 Bethanechol Chloride [Urecholine -] 25 mg PO TID 09/14/19 Glimepiride 2 mg PO BID 09/14/19 Insulin (Levemir) [Levemir Vial] 10 units SQ HS 09/14/19 Quetiapine Fumarate [Seroquel -] 200 mg PO TID 09/14/19 Simvastatin [Zocor] 20 mg PO HS 09/14/19 Sitagliptin Phosphate [Januvia] 100 mg PO DAILY 09/14/19 Tamsulosin HCl 0.4 mg PO HS 09/14/19 Venlafaxine HCl ER [Effexor Xr -] 150 mg PO DAILY 09/14/19 ASSESSMENT AND PLAN: 69 year old female with history of HTN, CKD 3, DM 2, Depression/Anxiety, COPD, Chronic LBP, presents after syncopal episode at home with forehead laceration due to head trauma. Patient does not remember all circumstances surrounding her collapse but does refer preceding lightheadedness. No CP/palpitations. CT Head - no acute intracranial findings. CT C Spine - no fractures/dislocation CT Facial Bones - nasal bone fractures R Shoulder XRay - Arthritic changes 1. Syncope secondary to Dehydration sec to UTI Head injury with lac to L forehead - s/p sutures and nasal bone fracture Orthostatic changes positive ECG - no acute findings Telemonitoring Echo, Carotid Doppler requested. IV hydration. Hold Torsemide. 2. UTI (UA suggestive) Urine Cx pending Empiric Ceftriaxone pending final Urine Cx. 3. Nasal Bone fractures s/p Head Injury ENT consulted for further evaluation and management 4. Normocytic Anemia Anemia work-up shows no Iron/B12/Folate deficiencies. Likely secondary to CKD3/Chronic Disease. 5. ELIZABETH on CKD 3 - resolving with IV hydration. Renal US ordered. 6. DM 2 - Levemir, Januvia, Glimepiride held. Novolog sliding scale as in- patient. 7. Depression/Anxiety - on Seroquel, Venlafaxine. 8. HLD - Continue Simvastatin. DVT Px - Heparin SQ
[2019-09-14] MEDS ORDERED: QUEtiapine FUMARATE 100 MG TABLET (FP) PO ONE (14:00)
[2019-09-14] MEDS ORDERED: INSULIN SLIDING SCALE (NOVOLOG) 1 VIAL SQ SCH (16:30)
--- NOTE | 2019-09-14 16:45 | CONSULT ---
Consult Consult Specialty:: Nephrology Reason for Consultation:: ELIZABETH - History of Present Illness Chief Complaint: s/p fall History of Present Illness: Pt is a 69 year old female with pmhx of htn, ckd, dm, anxiety, depression, copd, and back pain who presents with a fall. She was found to have elevated valet parker and I was called to evaluate her. She is known to me from previous visits. Her outpt follow up is poor. SHe denies dysuria or hematuria. She is asking to go home. She denies dysuria or hematuria. - History Source History Provided By: Patient - Past Medical History Cardio/Vascular: Yes: HTN Pulmonary: Yes: COPD (?) Renal/: Yes: Renal Inusuff Psych: Yes: Anxiety, Depression Musculoskeletal: Yes: Chronic low back pain Endocrine: Yes: Diabetes Mellitus - Past Surgical History Past Surgical History: Yes: Appendectomy - Alcohol/Substance Use Hx Alcohol Use: No History of Substance Use: reports: None - Smoking History Smoking history: Never smoked Have you smoked in the past 12 months: No Aproximately how many cigarettes per day: 5 If you are a former smoker, when did you quit?: 1 month ago - Social History Usual Living Arrangement: Alone ADL: Independent History of Recent Travel: No Home Medications - Allergies Allergies/Adverse Reactions: Allergies Allergy/AdvReac Type Severity Reaction Status Date / Time No Known Allergies Allergy Verified 09/13/19 22:33 - Home Medications Home Medications: Ambulatory Orders Aspirin [ASA -] 81 mg PO DAILY 09/14/19 Bethanechol Chloride [Bethanechol Chloride -] 25 mg PO TID 09/14/19 Cefpodoxime Proxetil [Vantin -] 200 mg PO Q12H 3 Days #6 tablet 09/14/19 Glimepiride 2 mg PO BID 09/14/19 Insulin (Levemir) [Levemir Vial] 10 units SQ HS 09/14/19 Quetiapine Fumarate [Seroquel -] 200 mg PO TID 09/14/19 Simvastatin [Zocor] 20 mg PO HS 09/14/19 Sitagliptin Phosphate [Januvia] 100 mg PO DAILY 09/14/19 Venlafaxine HCl ER [Effexor Xr -] 150 mg PO DAILY 09/14/19 Walker [Ultra-Light Rollator] 1 each MC DAILY #1 each 09/14/19 Family Medical History Family History: Denies Review of Systems - Review of Systems Constitutional: reports: No Symptoms Eyes: reports: No Symptoms HENT: reports: No Symptoms Neck: reports: No Symptoms Cardiovascular: reports: No Symptoms Respiratory: reports: No Symptoms Gastrointestinal: reports: No Symptoms Genitourinary: reports: No Symptoms Musculoskeletal: reports: No Symptoms Integumentary: reports: No Symptoms Neurological: reports: No Symptoms Endocrine: reports: No Symptoms Hematology/Lymphatic: reports: No Symptoms Psychiatric: reports: No Symptoms Physical Exam Vital Signs: Vital Signs Temperature 98.3 F 09/14/19 07:01 Pulse Rate 96 H 09/14/19 07:01 Respiratory Rate 18 09/14/19 07:01 Blood Pressure 142/64 09/14/19 07:01 O2 Sat by Pulse Oximetry (%) 98 09/14/19 07:40 Constitutional: Yes: Calm Eyes: Yes: Conjunctiva Clear Neck: Yes: Supple Cardiovascular: Yes: S1, S2 Respiratory: Yes: CTA Bilaterally Gastrointestinal: Yes: Normal Bowel Sounds, Soft Renal/: Yes: WNL Musculoskeletal: Yes: WNL Edema: No Neurological: Yes: Oriented Psychiatric: Yes: Oriented Labs: CBC, BMP 09/14/19 10:37 09/14/19 10:37 Imaging - Results Chest X-ray: Report Reviewed Problem List - Problems (1) CKD (chronic kidney disease) Code(s): N18.9 - CHRONIC KIDNEY DISEASE, UNSPECIFIED Assessment/Plan Current Medications Generic Name Dose Route Start Last Admin Trade Name Freq PRN Reason Stop Dose Admin Heparin Sodium (Porcine) 5,000 unit 09/14/19 06:00 09/14/19 06:33 Heparin - SQ 5,000 unit TID KACIE Administration Ceftriaxone Sodium 1 gm/ 50 mls @ 100 mls/hr 09/14/19 10:00 09/14/19 10:06 Dextrose IVPB 100 mls/hr DAILY KACIE Administration Sodium Chloride 1,000 mls @ 75 mls/hr 09/14/19 07:43 09/14/19 08:33 Normal Saline - IV 75 mls/hr ASDIR KACIE Administration Insulin Aspart 1 vial 09/14/19 16:30 Novolog Vial Sliding Scale - SQ ACHS KACIE Protocol Impression 1. CKD 2. HTN 3. s/p fall 4. DM 5. ELIZABETH Plan - renal function is improving - repeat labs in am - will need outpt follow up - avoid nsaids - avoid nephrotoxins
--- NOTE | 2019-09-16 00:45 | DS ---
Physical Exam: SUBJECTIVE: No overnight events. Patient seen and examined. Pt did not want to remain in the hospital and wants to leave AMA. OBJECTIVE: PHYSICAL EXAM GENERAL: The patient is awake, alert, and fully oriented. Wants to leave AMA. HEAD: NC. Laceration on L forehead already stitched. EYES: PERRL, extraocular movements intact, ENT: Ears normal, nares patent, oropharynx clear without exudates, moist mucous membranes. bruise on nose LUNGS: Breath sounds equal, clear to auscultation bilaterally, no wheezes, no crackles, no accessory muscle use. HEART: Regular rate and rhythm, S1, S2 without murmur, rub or gallop. ABDOMEN: Soft, nontender, nondistended, normoactive bowel sounds, no guarding, no rebound, NEUROLOGICAL: Cranial nerves II through XII grossly intact. Normal speech, 5/5 strength b/l UE & LE. Sensation intact in all 4 extremities. PSYCH: Normal mood, normal affect. LABS Laboratory Results - last 24 hr 09/14/19 03:12 COVID-19 (KENNY) Not detected Laboratory Last Values WBC 10.9 K/mm3 (4.0-10.0) H 09/14/19 10:37 RBC 2.93 M/mm3 (3.60-5.2) L 09/14/19 10:37 Hgb 9.0 GM/dL (10.7-15.3) L 09/14/19 10:37 Hct 27.3 % (32.4-45.2) L 09/14/19 10:37 MCV 93.1 fl (80-96) 09/14/19 10:37 MCH 30.6 pg (25.7-33.7) 09/14/19 10:37 MCHC 32.9 g/dl (32.0-36.0) 09/14/19 10:37 RDW 13.5 % (11.6-15.6) 09/14/19 10:37 Plt Count 190 K/MM3 (134-434) 09/14/19 10:37 MPV 8.8 fl (7.5-11.1) 09/14/19 10:37 Absolute Neuts (auto) 7.6 K/mm3 (1.5-8.0) 09/14/19 10:37 Neutrophils % 70.2 % (42.8-82.8) 09/14/19 10:37 Lymphocytes % 17.8 % (8-40) 09/14/19 10:37 Monocytes % 10.0 % (3.8-10.2) 09/14/19 10:37 Eosinophils % 1.8 % (0-4.5) 09/14/19 10:37 Basophils % 0.2 % (0-2.0) 09/14/19 10:37 Nucleated RBC % 0 % (0-0) 09/14/19 10:37 Retic Count 3.92 % (0.5-1.5) H D 09/14/19 10:37 PT with INR 12.10 SEC (9.7-13.0) 09/13/19 23:30 INR 1.03 (0.83-1.09) 09/13/19 23:30 PTT (Actin FS) 41.7 SECONDS (25.2-36.5) H 09/13/19 23:30 Sodium 139 mmol/L (136-145) 09/14/19 10:37 Potassium 4.4 mmol/L (3.5-5.1) 09/14/19 10:37 Chloride 105 mmol/L (98-107) 09/14/19 10:37 Carbon Dioxide 28 mmol/L (21-32) 09/14/19 10:37 Anion Gap 5 MMOL/L (8-16) L 09/14/19 10:37 BUN 26.2 mg/dL (7-18) H 09/14/19 10:37 Creatinine 1.4 mg/dL (0.55-1.3) H 09/14/19 10:37 Est GFR (CKD-EPI)AfAm 44.01 09/14/19 10:37 Est GFR (CKD-EPI)NonAf 37.97 09/14/19 10:37 Random Glucose 268 mg/dL (74-106) H 09/14/19 10:37 Hemoglobin A1c % 11.1 % (4.2-6.3) H 09/14/19 10:37 Calcium 8.2 mg/dL (8.5-10.1) L 09/14/19 10:37 Phosphorus 2.9 mg/dL (2.5-4.9) 09/14/19 10:37 Magnesium 1.9 mg/dL (1.8-2.4) 09/14/19 10:37 Iron 50 ug/dL (50-175) 09/14/19 10:37 TIBC 263 ug/dL (250-450) 09/14/19 10:37 Iron Saturation 19 % (17.5-39) 09/14/19 10:37 Unsaturated IBC 213 ug/dL (200-275) 09/14/19 10:37 Ferritin 137.3 ng/ml (8-388) 09/14/19 10:37 Total Bilirubin 0.3 mg/dL (0.2-1) 09/14/19 10:37 AST 13 U/L (15-37) L 09/14/19 10:37 ALT 29 U/L (13-61) 09/14/19 10:37 Alkaline Phosphatase 142 U/L (45-117) H 09/14/19 10:37 Troponin I < 0.02 ng/ml (0.00-0.05) 09/14/19 10:37 Total Protein 6.7 g/dl (6.4-8.2) 09/14/19 10:37 Albumin 2.6 g/dl (3.4-5.0) L 09/14/19 10:37 Triglycerides 220 mg/dL (0-150) H 09/14/19 10:37 Cholesterol 131 mg/dL (50-200) 09/14/19 10:37 Total LDL Cholesterol 66 mg/dL (5-100) 09/14/19 10:37 HDL Cholesterol 28 mg/dL (40-60) L 09/14/19 10:37 Vitamin B12 557 pg/ml (193-986) 09/14/19 10:37 Serum Folate 27 ng/mL (3.1-17.5) H 09/14/19 10:37 TSH 1.35 uIU/ml (0.358-3.74) 09/14/19 10:37 Urine Color Yellow 09/14/19 00:52 Urine Appearance Cloudy 09/14/19 00:52 Urine pH 5.5 (5.0-8.0) 09/14/19 00:52 Ur Specific Vincent 1.012 (1.010-1.035) 09/14/19 00:52 Urine Protein 1+ (NEGATIVE) H 09/14/19 00:52 Urine Glucose (UA) 1+ (NEGATIVE) H 09/14/19 00:52 Urine Ketones Negative (NEGATIVE) 09/14/19 00:52 Urine Blood Negative (NEGATIVE) 09/14/19 00:52 Urine Nitrite Negative (NEGATIVE) 09/14/19 00:52 Urine Bilirubin Negative (NEGATIVE) 09/14/19 00:52 Urine Urobilinogen 0.2 mg/dL (0.2-1.0) 09/14/19 00:52 Ur Leukocyte Esterase 1+ (NEGATIVE) H 09/14/19 00:52 Urine WBC (Auto) 342 /uL (0-25.8) 09/14/19 00:52 Urine RBC (Auto) 10 /uL (0-23.9) 09/14/19 00:52 Urine Casts (Auto) 1 /uL (0-3.1) 09/14/19 00:52 U Epithel Cells (Auto) 6 /uL (0-25.1) 09/14/19 00:52 Urine Bacteria (Auto) 1094 /uL (0-1359) 09/14/19 00:52 COVID-19 (KENNY) Not detected (Not Detected) 09/14/19 03:12 Blood Type A POSITIVE 09/13/19 23:30 Antibody Screen Negative 09/13/19 23:30 HOSPITAL COURSE: 69 YO F PMH HTN, CKD, DM, anxiety, depression, COPD (not on home O2), chronic LBP presents to ED after an unwitnessed syncopal episode. Her laceration on the Left forehead was sutured. CT of facial bones showed nasal bone fractures. CT Head did not show evidence of acute intracranial pathology, and CT c-spine did not show evidence of fractures/dislocation. X-ray of her R shoulder only showed arthritic changes. UA showed 1+ leukoesterase, 342 WBCs, 1095 bacteria. Ceftriax one was started for a UTI. ECHO showed normal LV systolic function and EF 55- 60%. She was found to have orthostatic hypotension. Her BUN/Cr was 29/1.8, which is above her baseline Cr of 1.1, indicating ELIZABETH on CKD. ELIZABETH resolved with IV hydration. Hgb/Hct was 10/32 with a normal MCV, suggesting normocytic anemia. Pt insisted on leaving AMA. She wanted to go home and did not wish to remain in the hospital. Pt was alert and awake and oriented X 3. She was found to have capacity to make medical decisions. She was advised on possible risks, including but not limited to further syncopal events, falls, injury/disability, . The pt was asked to stop taking her home medication tamsulosin as it may be contributing to her orthostatic hypotension. Pt was instructed to continue taking antibiotics for three days to address her UTI. She was informed that she had acute kidney injury and anemia that needs follow-up labs regularly to monitor changes. Pt was also encouraged to see an ENT for her nasal bone fractures. Pt did not want to be treated in the hospital; Advised to follow-up with primary care physician regarding this hospital visit. Physical therapy evaluated the patient and recommended a walker. A prescription for a walker was sent to the pharmacy. Patients questions were answered. The benefits of continuing her stay in the hospital, including regular monitoring by health care providers, diagnostic testing, and treatment of her conditions, were explained to the patient. Explained to patient that by leaving and not allowing us to continue treating her, it may result in her , disability, injury, and health impairment. The patient acknowledged these risks of leaving AMA. The patient was encouraged to return to the hospital if her symptoms change or if she had changed her mind regarding receiving treatment in the hospital. Date of Admission:09/14/19 EKG: NSR, QTC 430 LV systolic function normal. EF: 55-60%. Impaired LV relaxation. LA mildly dilated. Mild mitral valve thickening & mitral annular calcification. Trace to mild mitral regurg. Mild aortic sclerosis. Mild aortic regurg. CXR: no acute chest pathology Nasal fracture Date of Discharge: 09/14/19 Minutes to complete discharge: 49 Discharge Summary Problems reviewed: Yes Reason For Visit: SYNCOPE,FACIAL LACERATION,FACIAL INJURY Condition: Stable - Instructions Referrals: Jonny Gann MD [Staff Physician] - 1 Week (nasal bomne fractures s/p fall/syncope) Disposition: AGAINST MEDICAL ADVICE - Home Medications Comprehensive Discharge Medication List: Ambulatory Orders Aspirin [ASA -] 81 mg PO DAILY 09/14/19 Bethanechol Chloride [Bethanechol Chloride -] 25 mg PO TID 09/14/19 Cefpodoxime Proxetil [Vantin -] 200 mg PO Q12H 3 Days #6 tablet 09/14/19 Glimepiride 2 mg PO BID 09/14/19 Insulin (Levemir) [Levemir Vial] 10 units SQ HS 09/14/19 Quetiapine Fumarate [Seroquel -] 200 mg PO TID 09/14/19 Simvastatin [Zocor] 20 mg PO HS 09/14/19 Sitagliptin Phosphate [Januvia] 100 mg PO DAILY 09/14/19 Venlafaxine HCl ER [Effexor Xr -] 150 mg PO DAILY 09/14/19 Walker [Ultra-Light Rollator] 1 each MC DAILY #1 each 09/14/19 This patient is new to me today: No Emergency Visit: Yes ED Registration Date: 09/14/19 Care time: The patient presented to the Emergency Department on the above date and was hospitalized for further evaluation of their emergent condition. Critical Care patient: No - Discharge Referral Referred to [facility] No ATTENDING PHYSICIAN STATEMENT I saw and evaluated the patient. I reviewed the resident's note and discussed the case with the resident. I agree with the resident's findings and plan as documented. SUBJECTIVE: OBJECTIVE: ASSESSMENT AND PLAN:
== END 2019-09-14 15:40 | disposition left against medical advice (07) | DRG 988 ==
LOC: JER 22:14 → JERBED 09-14 02:44
PROVIDERS: ADMIT Internal Medicine
PROC: 0WQ0XZZ Repair Head, External Approach (ICD-10-PCS; principal; 2019-09-13)
DX: I95.1 Orthostatic hypotension (principal); N17.9 Acute kidney failure, unspecified; E46 Unspecified protein-calorie malnutrition; N39.0 Urinary tract infection, site not specified; I10 Essential (primary) hypertension; J44.9 Chronic obstructive pulmonary disease, unspecified; M54.5 Low back pain; S02.2XXA Fracture of nasal bones, initial encounter for closed fracture; S01.81XA Laceration without foreign body of other part of head, initial encounter; F41.8 Other specified anxiety disorders; W18.39XA Other fall on same level, initial encounter; Y92.098 Other place in other non-institutional residence as the place of occurrence of the external cause; E86.0 Dehydration; I51.7 Cardiomegaly; D63.1 Anemia in chronic kidney disease; I12.9 Hypertensive chronic kidney disease with stage 1 through stage 4 chronic kidney disease, or unspecified chronic kidney disease; E11.22 Type 2 diabetes mellitus with diabetic chronic kidney disease; N18.3 Chronic kidney disease, stage 3 (moderate); F11.90 Opioid use, unspecified, uncomplicated; E88.09 Other disorders of plasma-protein metabolism, not elsewhere classified; Z68.25 Body mass index [BMI] 25.0-25.9, adult
CPT/HCPCS: 36415; 70450-TC; 70486-TC; 71045-TC-FY; 72125-TC; 73030-TC-RT-FY; 80053; 80061; 81003; 82607; 82728; 82746; 83036; 83540; 83550; 83721; 83735; 84100; 84443; 84484; 85025; 85044; 85610; 85730; 86850; 86900; 86901; 87077; 87086; 87186; 90715; 93005; 93010; 93306-TC; 97116-GP; 99285-25; J1644; U0003

== ENCOUNTER 2019-10-20 18:55 | Inpatient (IN) | payer OTHER ==
[2019-10-20 19:09] VITALS: BMI 24.3
[2019-10-20] MEDS ORDERED: SODIUM CHLORIDE 0.9% 500 ML INFUS.BAG IV ONE (19:39)
--- NOTE | 2019-10-20 20:05 | PDOC ---
History of Present Illness - General Chief Complaint: Blood Sugar Problem Stated Complaint: HIGH BLOOD SUGAR Time Seen by Provider: 10/20/19 19:37 History Source: Patient Exam Limitations: No Limitations - History of Present Illness Initial Comments: 10/20/19 19:55 PCP: Dr. Kc HPI: 69yo F pmh DM2 (non-compliant) c/b peripheral neuropathy and CKD, HTN, COPD, schizoaffective disorder, depression, opiate and tobacco abuse, previously seen for DKA and multiple electrolyte disturbances presenting with 3 days of fatigue, generalized weakness, lightheadedness, polyuria, polydipsia, and hyperglycemia. Patient with stitches on left forehead from "about a month ago" that "the police said were not ready to come out." She presented asking for food and water "because I haven't eaten in 3 days." Denies any nausea, vomiting, abdominal pain. Endorses central substernal sharp pain "forever" that "always doesn't show anything on chest xray." Patient endorses visiting multiple EDs around the area, lives alone, does not know how she fell and hit her head or which ED did the suture repair. Reports chronic numbnes and tingling in all extremities and progressively worsening vision without acute changes. Denies fevers, chills, wounds, nausea, vomiting, abdominal pain, shortness of breath, chest tightness, edema, syncope. Meds: Per chart, patient unaware All: NKDA PMH: As above PSH: Appendectomy as a child SHx: Lives alone at home here in [place] Past History - Travel History Traveled outside of the country in the last 30 days: No Close contact w/someone who was outside of country & ill: No - Medical History Allergies/Adverse Reactions: Allergies Allergy/AdvReac Type Severity Reaction Status Date / Time No Known Allergies Allergy Verified 10/20/19 19:07 Home Medications: Ambulatory Orders Aspirin [ASA -] 81 mg PO DAILY 09/14/19 Bethanechol Chloride [Bethanechol Chloride -] 25 mg PO TID 09/14/19 Cefpodoxime Proxetil [Vantin -] 200 mg PO Q12H 3 Days #6 tablet 09/14/19 Glimepiride 2 mg PO BID 09/14/19 Insulin (Levemir) [Levemir Vial] 10 units SQ HS 09/14/19 Quetiapine Fumarate [Seroquel -] 200 mg PO TID 09/14/19 Simvastatin [Zocor] 20 mg PO HS 09/14/19 Sitagliptin Phosphate [Januvia] 100 mg PO DAILY 09/14/19 Venlafaxine HCl ER [Effexor Xr -] 150 mg PO DAILY 09/14/19 Walker [Ultra-Light Rollator] 1 each MC DAILY #1 each 09/14/19 Anemia: No Asthma: No Cancer: No Cardiac Disorders: No CVA: No COPD: No CHF: No Dementia: No Diabetes: Yes (type 2) GI Disorders: No Disorders: No HTN: Yes Hypercholesterolemia: No Liver Disease: No Psychiatric Problems: Yes Seizures: No Thyroid Disease: No Other medical history: pinched nerve in her back - Surgical History Abdominal Surgery: No Appendectomy: Yes Cardiac Surgery: No Cholecystectomy: No Lung Surgery: No Neurologic Surgery: No Orthopedic Surgery: No - Immunization History Td Vaccination: Yes TDAP Vaccination: Yes Immunization Up to Date: Yes - Psycho-Social/Smoking History Smoking Status: No Smoking History: Current every day smoker Years of Tobacco Use: 0 Have you smoked in the past 12 months: No Number of Cigarettes Smoked Daily: 5 If you are a former smoker, when did you quit?: 1 month ago Cigars Per Day: 0 Information on smoking cessation initiated: No 'Breaking Loose' booklet given: 08/28/18 - Substance Abuse Hx (Audit-C & DAST Scrn) How often the patient has a drink containing alcohol: Never Score: In Men: 4 or > Positive; In Women: 3 or > Positive: 0 Screen Result (Pos requires Nsg. Audit-10AR): Negative Review of Systems - Review of Systems Able to Perform ROS?: Yes Is the patient limited Malay proficient: Yes Constitutional: Yes: Weakness. No: Chills, Fever HEENTM: No: Recent change in vision, Nose Congestion, Throat Pain Respiratory: No: Cough, Shortness of Breath Cardiac (ROS): Yes: Chest Pain, Lightheadedness. No: Edema, Irregular Heart Rate, Palpitations, Syncope, Chest Tightness ABD/GI: No: Constipated, Diarrhea, Nausea, Vomiting : No: Burning, Dysuria, Frequency Musculoskeletal: No: Muscle Pain, Muscle Weakness, Neck Pain Integumentary: No: Bruising, Pruritus, Rash Neurological: Yes: Numbness, Tingling. No: Headache, Weakness Psychiatric: Yes: Depression. No: Change in Appetite Endocrine: Yes: Increased Thirst, Increased Urine. No: Change in Weight Hematologic/Lymphatic: No: Anemia, Blood Clots, Easy Bleeding All Other Systems: Reviewed and Negative *Physical Exam - Vital Signs Last Vital Signs Temp Pulse Resp BP Pulse Ox 98.1 F 109 H 18 102/66 98 10/20/19 19:00 10/20/19 19:00 10/20/19 19:00 10/20/19 19:00 10/20/19 19:00 - Physical Exam 10/20/19 20:06 Vitals reviewed, notable for tachycardia GEN: Well appearing, unkempt with dirty / torn clothes, appears stated age, NAD, comfortable. AAOx3. HEENT: NC with 6 sutures in left forehead, EOMI, PERRL. Sclera anicteric, non-injected. No facial asymmetry. Dry mucous membranes. Normal voice. Trachea midline. CV: NSR, Tachycardia, S1/S2, no murmurs / rubs / gallops appreciated. LUNG: CTABL, normal work of breathing. No wheezes, rales, rhonchi. No cough. Speaking full sentences. GI: Soft, NTND, +BS, no guarding, no rebound. No masses. EXTREMITIES: 2+ distal pulses. No clubbing / cyanosis / edema. No gross deformity in any extremity. SKIN: Warm, dry, no rashes appreciated, non-jaundiced. PSYCH: Normal mood and affect. Cooperative and appropriate. NEURO: CN grossly intact. Moving all extremities well. Normal strength and sensation grossly. ED Treatment Course - LABORATORY CBC & Chemistry Diagram: 10/20/19 22:50 10/20/19 22:50 - RADIOLOGY Radiology Studies Ordered: Category Date Time Status CHEST X-RAY PORTABLE* [RAD] Stat Radiology 10/20/19 19:39 Ordered Medical Decision Making - Medical Decision Making 10/20/19 20:07 69yo F pmh DM2 (non-compliant) c/b peripheral neuropathy and CKD, HTN, COPD, schizoaffective disorder, depression, opiate and tobacco abuse, previously seen for DKA and multiple electrolyte disturbances presenting with 3 days of fatigue, generalized weakness, lightheadedness, polyuria, polydipsia, and hyperglycemia. History notable for poor understanding of her medical problems and their treatment, poor insight, poor compliance, presenting with constitutional sympt oms for at least 3 days. Exam notable for soft BP, tachycardia, elevated BGM, otherwise normal exam. Together concerning for DKA vs HHS vs electrolyte disturbance vs occult infection. - CBC, CMP, Cardiac Profile, Beta-hydroxybutyrate, VBG, Ua/UCx - EKG, CXR, BGM - 1L NS to start 10/20/19 21:59 7 sutures removed from left forehead, wound poorly healing with obvious scar, sutures somewhat healing into the wound given prolonged duration. Patient continues to request food, redirected. Asking when she can leave. States "Oh! I think I left the door open." Explained again the necessity of evaluation of her hyperglycemia prior to giving food. 10/21/19 00:27 Labs largely unremarkable Glucose and Ketones pending No acidosis, no leukocytosis Patient remains eager to return home 10/21/19 00:49 Glucose 514 S/p 1L IVF Ordered 10U insulin 10/21/19 02:11 Dispo: Admit uncontrolled diabetes, ketones, ELIZABETH 10/21/19 02:27 Additional 1L IVF ordered, patient encouraged to provide urine sample Discharge - Discharge Information Problems reviewed: Yes Clinical Impression/Diagnosis: Lightheaded, Encounter for removal of sutures, Hyperglycemia, Noncompliance with diabetes treatment, Dizziness, Weakness, ELIZABETH (acute kidney injury) Condition: Guarded - Follow up/Referral - Patient Discharge Instructions Patient Printed Discharge Instructions: DI for Hyperglycemia -- Adult Additional Instructions: You were seen and evaluated at [facility] for suture removal and lightheadedness. Please continue your home medications as directed. Follow up with your primary care doctor within the next week. Return to the ED for any new or concerning symptoms. - Post Discharge Activity
[2019-10-20] MEDS ORDERED: MAG HYDROX/AL HYDROX/SIMETH -MYLANTA- ORAL SUSPENSION PO ONE (20:30)
[2019-10-20] MEDS ORDERED: FAMOTIDINE 20 MG/50 ML IVPB 20 MG in PREMIX 50 IVPB ONE (20:30)
--- NOTE | 2019-10-20 20:33 | PDOC ---
Documentation entered by Dia Saleh SCRIBE, acting as scribe for Holland Morrissey MD. Holland Morrissey MD: This documentation has been prepared by the scribe, Dia Saleh SCRIBE, under my direction and personally reviewed by me in its entirety. I confirm that the documentation accurately reflects all work, treatment, procedures, and medical decision making performed by me. Attending Attestation - Resident Resident Name: FeliceHarris - ED Attending Attestation I have performed the following: I have examined & evaluated the patient, The case was reviewed & discussed with the resident, I agree w/resident's findings & plan, Exceptions are as noted - HPI HPI: 10/20/19 20:09 Patient is a 69 year old female with a significant past medical history of diabetes, peripheral neuropathy, and depression, who presents to the ED with hyperglycemia and associated weakness, fatigue, lightheadedness, polydipsia, and polyuria x3 days. Patient also stated that she has not eaten anything within these past 3 days and is requesting food. Patient has sutures in forehead from a month ago but cannot recall how she fell or who placed the sutures in. Pt endorses some substernal chest burning for a while, but is non exertional and denies any sob/diaphoresis/n/v with it. Patient denies: syncope, fever, chills, nausea, vomiting, SOB, diarrhea, melena, bpr, abdominal pain, edema, wounds, or any other related symptoms. Allergies: NKDA - Physicial Exam PE: 10/20/19 20:32 GENERAL: The patient is awake, alert, and fully oriented, Nontoxic - in no acute distress. HEAD: Normocephalic, old healed wound on L frontal scalp. EYES: extraocular movements intact, sclera anicteric, conjunctiva clear. ENT: Normal voice, Moist mucous membranes. NECK: Normal range of motion, supple LUNGS: Breath sounds equal, clear to auscultation bilaterally. No wheezes, no rhonchi, no rales. HEART: Regular rate and rhythm, normal S1 and S2 without murmur, rub or gallop. ABDOMEN: Soft, nontender, No guarding, no rebound. No CVA tenderness EXTREMITIES: Normal range of motion, no edema. NEUROLOGICAL: No facial assymetry, Normal speech, PSYCH: Normal mood, normal affect. SKIN: Warm, Dry, normal turgor, - Medical Decision Making 10/20/19 20:33 will obtain blood workto screen for acs, dka, pancreatitis fluids for hdyration ua to screen for uti will reassess 10/21/19 00:14 labs reviewed. no signs of dka pending bgm if feeling better, anticipate dc Discharge - Discharge Information Problems reviewed: Yes Clinical Impression/Diagnosis: Lightheaded, Encounter for removal of sutures, Hyperglycemia, Noncompliance with diabetes treatment, Dizziness, Weakness, ELIZABETH (acute kidney injury) Condition: Improved Disposition: HOME - Follow up/Referral - Patient Discharge Instructions - Post Discharge Activity
[2019-10-20] MEDS ORDERED: QUEtiapine FUMARATE 200 MG TABLET PO ONE (21:12)
[2019-10-20] MEDS ORDERED: VENLAFAXINE HCL 100 MG TABLET PO ONE (21:13)
[2019-10-20] MEDS ORDERED: VENLAFAXINE HCL 150 MG E.R. CAPSULE PO ONE (21:14)
[2019-10-20] MEDS ORDERED: VENLAFAXINE HCL 75 MG TABLET ONE (22:12)
[2019-10-20] MEDS ORDERED: QUEtiapine FUMARATE 100 MG TABLET (FP) ONE (22:12)
[2019-10-20] MEDS ORDERED: FAMOTIDINE 20 MG/50 ML IVPB 20 MG/50 ML MG IVPB ONE (22:13)
[2019-10-20] MEDS ORDERED: MAG HYDROX/AL HYDROX/SIMETH 30 ML UNIT-DOSE CUP ONE (22:13)
[2019-10-20 23:19] LABS: BASO % 0.5 % (0-2.0); EOS % 1.7 % (0-4.5); HEMATOCRIT 34.5 % (32.4-45.2); HEMOGLOBIN 11.4 GM/dL (10.7-15.3); MCH 30.6 pg (25.7-33.7); MCHC 33.2 g/dl (32.0-36.0); MEAN CELL VOLUME 92.1 fl (80-96); MEAN PLT VOLUME 9.7 fl (7.5-11.1); MONO % 6.1 % (3.8-10.2); NEUT % 60.7 % (42.8-82.8); PLATELET COUNT 158 K/MM3 (134-434); RBC 3.74 M/mm3 (3.60-5.2); RDW 13.8 % (11.6-15.6); VENOUS O2 SATURATION 79.3 % (70-80); VENOUS PCO2 42.9 mmHg (38-52); VENOUS PH 7.371 (7.310-7.410)
[2019-10-20 23:58] LABS: ALBUMIN 3.5 g/dl (3.4-5.0); ALK PHOS 106 U/L (45-117); ANION GAP 8 MMOL/L (8-16); BILIRUBIN,TOTAL 0.6 mg/dL (0.2-1); BLOOD UREA NITROGEN 23.8 mg/dL (7-18); CALCIUM 9.1 mg/dL (8.5-10.1); CHLORIDE 94 mmol/L (98-107); CO2 28 mmol/L (21-32); CREATININE 1.9 mg/dL (0.55-1.3); LIPASE 172 U/L (73-393); POTASSIUM 4.6 mmol/L (3.5-5.1); SGOT/AST 15 U/L (15-37); SGPT/ALT 24 U/L (13-61); SODIUM 130 mmol/L (136-145); TOT PROT 7.9 g/dl (6.4-8.2)
[2019-10-21 00:43] LABS: GLUCOSE,RANDOM 514 mg/dL (74-106)
[2019-10-21] MEDS ORDERED: INSULIN REGULAR HUMAN 100 UNITS/ML *VIAL IVPUSH ONE (00:49)
[2019-10-21] MEDS ORDERED: SODIUM CHLORIDE 0.9% 500 ML INFUS.BAG IV ONE (02:07)
--- NOTE | 2019-10-21 03:12 | PDOC ---
*Physical Exam - Vital Signs Last Vital Signs Temp Pulse Resp BP Pulse Ox 98.1 F 99 H 18 86/51 L 100 10/21/19 03:01 10/21/19 03:01 10/21/19 03:01 10/21/19 03:01 10/21/19 03:01 Heart Score/ECG Review - ECG Intrepretation Rhythm: Regular Rhythm - Irvine Irvine: Normal - P and ID Prominent R with upright T in V1 (true posterior AR): No Delta Wave(s) Present: No WPW: No - QRS Poor R Wave Progression: No Q Wave Present: No - ST and T Early Repolarization: No Non Specific ST-T Wave changes: No Flattened T Waves: No Prolonged Q-T Interval: No - ECG Impressions Normal ECG: Yes Non-specific ST Elevation: No Ischemic Changes: No Bradycardia: No Torsades sammi Pointes: No ED Treatment Course - LABORATORY CBC & Chemistry Diagram: 10/20/19 22:50 10/20/19 22:50 - ADDITIONAL ORDERS Additional order review: Laboratory Results 10/21/19 10/20/19 10/20/19 01:47 22:50 22:50 VBG pH POC VBG pCO2 POC VBG pO2 VBG HCO3 VBG O2 Sat (Heron) VBG Base Excess Sodium 130 L Potassium 4.6 Chloride 94 L Carbon Dioxide 28 Anion Gap 8 BUN 23.8 H Creatinine 1.9 H Est GFR (CKD-EPI)AfAm 30.42 Est GFR (CKD-EPI)NonAf 26.25 POC Glucometer 335 Random Glucose 514 H* Lactic Acid 2.0 Calcium 9.1 Total Bilirubin 0.6 AST 15 ALT 24 Alkaline Phosphatase 106 Creatine Kinase 30 Troponin I < 0.02 Total Protein 7.9 Albumin 3.5 Lipase 172 Beta-Hydroxybutyrate 4.4 H 10/20/19 22:50 VBG pH 7.371 POC VBG pCO2 42.9 POC VBG pO2 44.7 VBG HCO3 24.3 VBG O2 Sat (Heron) 79.3 VBG Base Excess -1.0 Sodium Potassium Chloride Carbon Dioxide Anion Gap BUN Creatinine Est GFR (CKD-EPI)AfAm Est GFR (CKD-EPI)NonAf POC Glucometer Random Glucose Lactic Acid Calcium Total Bilirubin AST ALT Alkaline Phosphatase Creatine Kinase Troponin I Total Protein Albumin Lipase Beta-Hydroxybutyrate 10/21/19 10/20/19 01:47 22:50 RBC 3.74 MCV 92.1 MCHC 33.2 RDW 13.8 MPV 9.7 D Neutrophils % 60.7 Lymphocytes % 31.0 D Monocytes % 6.1 Eosinophils % 1.7 Basophils % 0.5 POC Glucometer 335 - Medications Given in the ED: ED Medications Discontinued Medications Generic Name Dose Route Start Last Admin Trade Name Sneha PRN Reason Stop Dose Admin Al Hydroxide/Mg Hydroxide 30 ml 10/20/19 20:30 10/20/19 22:24 Mylanta Suspension - PO 10/20/19 20:31 1 cup ONCE ONE Administration Famotidine/Sodium Chloride 20 50 mls @ 100 mls/hr 10/20/19 20:30 10/20/19 22:49 mg/ Miscellaneous IVPB 10/20/19 20:59 100 mls/hr ONCE ONE Administration Insulin Human Regular 10 units 10/21/19 00:49 10/21/19 01:02 Novolin R Vial *For Ivpush Or Iv Drip Only* IVPUSH 10/21/19 00:50 10 units ONCE ONE Administration Quetiapine Fumarate 200 mg 10/20/19 21:12 10/20/19 22:25 Seroquel - PO 10/20/19 21:13 200 mg ONCE ONE Administration Sodium Chloride 1,000 ml 10/20/19 19:39 10/20/19 22:49 Normal Saline - IV 10/20/19 19:40 1,000 ml ONCE ONE Administration Venlafaxine HCl 150 mg 10/20/19 21:14 10/20/19 22:25 Effexor Xr - PO 10/20/19 21:15 150 mg ONCE ONE Administration Medical Decision Making - Medical Decision Making 10/21/19 04:26 Pt was signed out to me. She has known DM, but she doesn't take care of her DM as she ought to, in that she has no glucometer and she is not always compliant with her meds. Pt has an elevated blood sugar and she is hypotensive in the ER Pt hydrated and treated with insulin. Labs done. Pt will have labs reassessed in the ER and she will have a sociall worker consult in the AM If her labs are WNL, she may be discharged home. Pt will be signed out to the day ER docs. They will disposition her Discharge - Discharge Information Problems reviewed: Yes Clinical Impression/Diagnosis: Lightheaded, Encounter for removal of sutures, Hyperglycemia, Noncompliance with diabetes treatment, Dizziness, Weakness, ELIZABETH (acute kidney injury) Condition: Guarded - Follow up/Referral - Patient Discharge Instructions Patient Printed Discharge Instructions: DI for Hyperglycemia -- Adult Additional Instructions: You were seen and evaluated at [facility] for suture removal and lightheadedness. Please continue your home medications as directed. Follow up with your primary care doctor within the next week. Return to the ED for any new or concerning symptoms. - Post Discharge Activity
[2019-10-21] MEDS ORDERED: ACETAMINOPHEN 325 MG TABLET (FP) PO PRN (08:45)
[2019-10-21] MEDS ORDERED: ACETAMINOPHEN 325 MG TABLET (FP) ONE (08:57)
[2019-10-21] MEDS ORDERED: INSULIN SLIDING SCALE (NOVOLOG) 1 VIAL SQ ONE (08:58)
[2019-10-21] MEDS: INSULIN SLIDING SCALE (NOVOLOG) 1 VIAL SQ SCH ×2 (09:01→11:58)
[2019-10-21 10:31] VITALS: BP 142/85; PULSE 106; TEMP 97.9
[2019-10-21] MEDS ORDERED: VENLAFAXINE HCL 75 MG TABLET ONE (11:54)
[2019-10-21] MEDS ORDERED: QUEtiapine FUMARATE 100 MG TABLET (FP) ONE (11:54)
--- NOTE | 2019-10-21 12:26 | HP ---
CHIEF COMPLAINT: High blood sugars HISTORY OF PRESENT ILLNESS: 69yo F pmh DM2 (non-compliant) c/b peripheral neuropathy and CKD, HTN, COPD, schizoaffective disorder, depression, opiate and tobacco abuse, previously seen for DKA and multiple electrolyte disturbances presenting with 3 days of fatigue, generalized weakness, lightheadedness, polyuria, polydipsia, and hyperglycemia. Blood sugar on presentation was 514. Recent Travel: none PAST MEDICAL HISTORY: as above PAST SURGICAL HISTORY: Appendectomy Social History: Smoking: previously smoked a pack per day for at least 20 years Alcohol: denies Drugs: denies Family history: Father of aneurysm at 89 years of age. mother in her 70s from a motor vehicular accident Allergies No Known Allergies Allergy (Verified 10/20/19 19:07) HOME MEDICATIONS: Home Medications Medication Instructions Recorded Aspirin [ASA -] 81 mg PO DAILY 09/14/19 Bethanechol Chloride [Bethanechol 25 mg PO TID 09/14/19 Chloride -] Cefpodoxime Proxetil [Vantin -] 200 mg PO Q12H 3 Days #6 tablet 09/14/19 Glimepiride 2 mg PO BID 09/14/19 Insulin (Levemir) [Levemir Vial] 10 units SQ HS 09/14/19 Quetiapine Fumarate [Seroquel -] 200 mg PO TID 09/14/19 Simvastatin [Zocor] 20 mg PO HS 09/14/19 Sitagliptin Phosphate [Januvia] 100 mg PO DAILY 09/14/19 Venlafaxine HCl ER [Effexor Xr -] 150 mg PO DAILY 09/14/19 Walker [Ultra-Light Rollator] 1 each MC DAILY #1 each 09/14/19 REVIEW OF SYSTEMS CONSTITUTIONAL: Absent: fever, chills, diaphoresis, generalized weakness, malaise, loss of appetite, weight change HEENT: Absent: rhinorrhea, nasal congestion, throat pain, throat swelling, difficulty swallowing, mouth swelling, ear pain, eye pain, visual changes CARDIOVASCULAR: Absent: chest pain, syncope, palpitations, irregular heart rate, lightheadedness, peripheral edema RESPIRATORY: Absent: cough, shortness of breath, dyspnea with exertion, orthopnea, wheezing, stridor, hemoptysis GASTROINTESTINAL: Absent: abdominal pain, abdominal distension, nausea, vomiting, diarrhea, constipation, melena, hematochezia GENITOURINARY: Absent: urgency, hesitancy, hematuria, flank pain, genital pain MUSCULOSKELETAL: Absent: myalgia, arthralgia, joint swelling, back pain, neck pain SKIN: Absent: rash, itching, pallor HEMATOLOGIC/IMMUNOLOGIC: Absent: easy bleeding, easy bruising, lymphadenopathy, frequent infections ENDOCRINE: Absent: unexplained weight gain, unexplained weight loss, heat intolerance, cold intolerance NEUROLOGIC: Absent: headache, focal weakness or paresthesias, dizziness, unsteady gait, seizure, mental status changes, bladder or bowel incontinence PSYCHIATRIC: Absent: suicidal or homicidal ideation, hallucinations. Present: anxiety PHYSICAL EXAMINATION Vital Signs - 24 hr 10/20/19 10/21/19 10/21/19 19:00 03:01 06:41 Temperature 98.1 F 98.1 F 97.8 F Pulse Rate 109 H Pulse Rate [ 99 H 102 H Right Apical] Respiratory 18 18 19 Rate Blood Pressure 102/66 Blood Pressure 86/51 L 124/86 [Left Arm] Blood Pressure [Right Arm] O2 Sat by Pulse 98 100 99 Oximetry (%) 10/21/19 10:29 Temperature 97.9 F Pulse Rate Pulse Rate [ 106 H Right Apical] Respiratory 18 Rate Blood Pressure Blood Pressure [Left Arm] Blood Pressure 142/85 [Right Arm] O2 Sat by Pulse 98 Oximetry (%) GENERAL: Awake, alert, and fully oriented, in no acute distress. HEAD: Normal with no signs of trauma. EYES: Pupils equal, round and reactive to light, extraocular movements intact, sclera anicteric, conjunctiva clear. No lid lag. EARS, NOSE, THROAT: Ears normal, nares patent, oropharynx clear without exudates. Moist mucous membranes. NECK: Normal range of motion, supple without lymphadenopathy, JVD, or masses. LUNGS: Breath sounds equal, clear to auscultation bilaterally. No wheezes, and no crackles. No accessory muscle use. HEART: borderline tachycardic, without murmur, rub or gallop. ABDOMEN: Soft, nontender, protuberant, hypoactive bowel sounds, no guarding, no rebound, no masses. No hepatomegaly or splenomegaly. MUSCULOSKELETAL: Normal range of motion at all joints. No bony deformities or tenderness. No CVA tenderness. UPPER EXTREMITIES: 2+ pulses, warm, well-perfused. No cyanosis. No clubbing. No peripheral edema. LOWER EXTREMITIES: 2+ pulses, warm, well-perfused. No calf tenderness. No peripheral edema. NEUROLOGICAL: Cranial nerves III-XII intact. Normal speech. PSYCHIATRIC: Cooperative. Good eye contact. Appropriate mood and affect. SKIN: Warm, dry, normal turgor, no rashes or lesions noted, normal capillary refill. Laboratory Results - last 24 hr 10/20/19 10/20/19 10/20/19 22:50 22:50 22:50 WBC 8.0 RBC 3.74 Hgb 11.4 Hct 34.5 D MCV 92.1 MCH 30.6 MCHC 33.2 RDW 13.8 Plt Count 158 MPV 9.7 D Absolute Neuts (auto) 4.9 Neutrophils % 60.7 Lymphocytes % 31.0 D Monocytes % 6.1 Eosinophils % 1.7 Basophils % 0.5 Nucleated RBC % 0 VBG pH 7.371 POC VBG pCO2 42.9 POC VBG pO2 44.7 VBG HCO3 24.3 VBG O2 Sat (Heron) 79.3 VBG Base Excess -1.0 Sodium 130 L Potassium 4.6 Chloride 94 L Carbon Dioxide 28 Anion Gap 8 BUN 23.8 H Creatinine 1.9 H Est GFR (CKD-EPI)AfAm 30.42 Est GFR (CKD-EPI)NonAf 26.25 POC Glucometer Random Glucose 514 H* Lactic Acid Calcium 9.1 Total Bilirubin 0.6 AST 15 ALT 24 Alkaline Phosphatase 106 Creatine Kinase 30 Troponin I < 0.02 Total Protein 7.9 Albumin 3.5 Lipase 172 Beta-Hydroxybutyrate 4.4 H 10/20/19 10/21/19 10/21/19 22:50 01:47 08:06 WBC RBC Hgb Hct MCV MCH MCHC RDW Plt Count MPV Absolute Neuts (auto) Neutrophils % Lymphocytes % Monocytes % Eosinophils % Basophils % Nucleated RBC % VBG pH POC VBG pCO2 POC VBG pO2 VBG HCO3 VBG O2 Sat (Heron) VBG Base Excess Sodium Potassium Chloride Carbon Dioxide Anion Gap BUN Creatinine Est GFR (CKD-EPI)AfAm Est GFR (CKD-EPI)NonAf POC Glucometer 335 341 Random Glucose Lactic Acid 2.0 Calcium Total Bilirubin AST ALT Alkaline Phosphatase Creatine Kinase Troponin I Total Protein Albumin Lipase Beta-Hydroxybutyrate 10/21/19 11:55 WBC RBC Hgb Hct MCV MCH MCHC RDW Plt Count MPV Absolute Neuts (auto) Neutrophils % Lymphocytes % Monocytes % Eosinophils % Basophils % Nucleated RBC % VBG pH POC VBG pCO2 POC VBG pO2 VBG HCO3 VBG O2 Sat (Heron) VBG Base Excess Sodium Potassium Chloride Carbon Dioxide Anion Gap BUN Creatinine Est GFR (CKD-EPI)AfAm Est GFR (CKD-EPI)NonAf POC Glucometer 352 Random Glucose Lactic Acid Calcium Total Bilirubin AST ALT Alkaline Phosphatase Creatine Kinase Troponin I Total Protein Albumin Lipase Beta-Hydroxybutyrate ASSESSMENT/PLAN: 1. Hyperglycemia secondary to uncontrolled DM - fluid hydration - diabetic diet - monitor electrolytes and blood sugars 2. schizoaffective disorder - she is on seroquel and effexor. will continue 3. SCDs for DVT prophylaxis
[2019-10-21] MEDS ORDERED: VENLAFAXINE HCL 75 MG TABLET PO ONE (12:37)
[2019-10-21] MEDS ORDERED: QUEtiapine FUMARATE 200 MG TABLET PO ONE (12:37)
--- NOTE | 2019-10-21 12:37 | DS ---
Physical Exam: SUBJECTIVE: Patient seen and examined OBJECTIVE: Vital Signs Period Temp Pulse Resp BP Sys/Boothe Pulse Ox Last 24 Hr 97.8 F-98.1 F 99-109 18-19 86-142/51-86 98-100 PHYSICAL EXAM GENERAL: The patient is awake, alert, and fully oriented, in no acute distress. HEAD: Normal with no signs of trauma. EYES: PERRL, extraocular movements intact, sclera anicteric, conjunctiva clear. ENT: Ears normal, nares patent, oropharynx clear without exudates, moist mucous membranes. NECK: Trachea midline, full range of motion, supple. LUNGS: Breath sounds equal, clear to auscultation bilaterally, no wheezes, no crackles, no accessory muscle use. HEART: Regular rate and rhythm, S1, S2 without murmur, rub or gallop. ABDOMEN: Soft, nontender, nondistended, normoactive bowel sounds, no guarding, no rebound, no hepatosplenomegaly, no masses. EXTREMITIES: 2+ pulses, warm, well-perfused, no edema. NEUROLOGICAL: Cranial nerves II through XII grossly intact. Normal speech, gait not observed. PSYCH: Normal mood, normal affect. SKIN: Warm, dry, normal turgor, no rashes or lesions noted. She has a healed scar at the forehead located at superior portion of the left eye. previous sutures have already been removed. LABS Laboratory Results - last 24 hr 10/20/19 10/20/19 10/20/19 22:50 22:50 22:50 WBC 8.0 RBC 3.74 Hgb 11.4 Hct 34.5 D MCV 92.1 MCH 30.6 MCHC 33.2 RDW 13.8 Plt Count 158 MPV 9.7 D Absolute Neuts (auto) 4.9 Neutrophils % 60.7 Lymphocytes % 31.0 D Monocytes % 6.1 Eosinophils % 1.7 Basophils % 0.5 Nucleated RBC % 0 VBG pH 7.371 POC VBG pCO2 42.9 POC VBG pO2 44.7 VBG HCO3 24.3 VBG O2 Sat (Heron) 79.3 VBG Base Excess -1.0 Sodium 130 L Potassium 4.6 Chloride 94 L Carbon Dioxide 28 Anion Gap 8 BUN 23.8 H Creatinine 1.9 H Est GFR (CKD-EPI)AfAm 30.42 Est GFR (CKD-EPI)NonAf 26.25 POC Glucometer Random Glucose 514 H* Lactic Acid Calcium 9.1 Total Bilirubin 0.6 AST 15 ALT 24 Alkaline Phosphatase 106 Creatine Kinase 30 Troponin I < 0.02 Total Protein 7.9 Albumin 3.5 Lipase 172 Beta-Hydroxybutyrate 4.4 H 10/20/19 10/21/19 10/21/19 22:50 01:47 08:06 WBC RBC Hgb Hct MCV MCH MCHC RDW Plt Count MPV Absolute Neuts (auto) Neutrophils % Lymphocytes % Monocytes % Eosinophils % Basophils % Nucleated RBC % VBG pH POC VBG pCO2 POC VBG pO2 VBG HCO3 VBG O2 Sat (Heron) VBG Base Excess Sodium Potassium Chloride Carbon Dioxide Anion Gap BUN Creatinine Est GFR (CKD-EPI)AfAm Est GFR (CKD-EPI)NonAf POC Glucometer 335 341 Random Glucose Lactic Acid 2.0 Calcium Total Bilirubin AST ALT Alkaline Phosphatase Creatine Kinase Troponin I Total Protein Albumin Lipase Beta-Hydroxybutyrate 10/21/19 11:55 WBC RBC Hgb Hct MCV MCH MCHC RDW Plt Count MPV Absolute Neuts (auto) Neutrophils % Lymphocytes % Monocytes % Eosinophils % Basophils % Nucleated RBC % VBG pH POC VBG pCO2 POC VBG pO2 VBG HCO3 VBG O2 Sat (Heron) VBG Base Excess Sodium Potassium Chloride Carbon Dioxide Anion Gap BUN Creatinine Est GFR (CKD-EPI)AfAm Est GFR (CKD-EPI)NonAf POC Glucometer 352 Random Glucose Lactic Acid Calcium Total Bilirubin AST ALT Alkaline Phosphatase Creatine Kinase Troponin I Total Protein Albumin Lipase Beta-Hydroxybutyrate HOSPITAL COURSE: Date of Admission:10/21/19 Date of Discharge: 10/21/19 She was treated with fluid hydration, insulin while in the ED. Her blood sugars were monitored and now in the 300s range. She feels better. She asked for her seroquel and Effexor prior to discharge. She was counseled to follow up with PCP and to monitor her blood sugars. She was also counseled to be compliant with monitoring blood sugars. Minutes to complete discharge: 30 Discharge Summary Problems reviewed: Yes Reason For Visit: ACUTE KIDNEY INJURY, DIZZINESS, NONCOMPLIANCE WITH Current Active Problems ELIZABETH (acute kidney injury) (Acute) Dizziness (Acute) Encounter for removal of sutures (Acute) Hyperglycemia (Acute) Lightheaded (Acute) Noncompliance with diabetes treatment (Acute) Weakness (Acute) Condition: Improved - Instructions Diet, Activity, Other Instructions: low sodium, 1800 ADA ...follow up with your primary MD. Disposition: HOME - Home Medications Comprehensive Discharge Medication List: Ambulatory Orders Aspirin [ASA -] 81 mg PO DAILY 09/14/19 Bethanechol Chloride [Bethanechol Chloride -] 25 mg PO TID 09/14/19 Cefpodoxime Proxetil [Vantin -] 200 mg PO Q12H 3 Days #6 tablet 09/14/19 Glimepiride 2 mg PO BID 09/14/19 Insulin (Levemir) [Levemir Vial] 10 units SQ HS 09/14/19 Quetiapine Fumarate [Seroquel -] 200 mg PO TID 09/14/19 Simvastatin [Zocor] 20 mg PO HS 09/14/19 Sitagliptin Phosphate [Januvia] 100 mg PO DAILY 09/14/19 Venlafaxine HCl ER [Effexor Xr -] 150 mg PO DAILY 09/14/19 Walker [Ultra-Light Rollator] 1 each MC DAILY #1 each 09/14/19 Problem List - Problems (1) Hyperglycemia Code(s): R73.9 - HYPERGLYCEMIA, UNSPECIFIED This patient is new to me today: Yes Date on this admission: 10/21/19 Emergency Visit: Yes ED Registration Date: 10/21/19 Care time: The patient presented to the Emergency Department on the above date and was hospitalized for further evaluation of their emergent condition. Critical Care patient: No - Discharge Referral Referred to [facility] No
--- NOTE | 2019-10-21 12:41 | EKG ---
Test Reason : Blood Pressure : / mmHG Vent. Rate : 101 BPM Atrial Rate : 101 BPM P-R Int : 154 ms QRS Dur : 078 ms QT Int : 350 ms P-R-T Axes : 072 083 015 degrees QTc Int : 453 ms SINUS TACHYCARDIA CANNOT RULE OUT ANTERIOR INFARCT (CITED ON OR BEFORE 26-JAN-2019) ABNORMAL ECG WHEN COMPARED WITH ECG OF 14-SEP-2019 00:09, NO SIGNIFICANT CHANGE WAS FOUND Confirmed by Dima Montaño ([id number]) on 10/21/2019 12:41:10 PM Referred By: Confirmed By:Dima Montaño
== END 2019-10-21 14:26 | disposition home or self-care (01) | DRG 638 ==
LOC: JER 18:55 → JERBED 10-21 02:12
PROVIDERS: ADMIT Hospitalist; ATTEND Hospitalist
DX: E11.65 Type 2 diabetes mellitus with hyperglycemia (principal); N17.9 Acute kidney failure, unspecified; E11.42 Type 2 diabetes mellitus with diabetic polyneuropathy; I12.9 Hypertensive chronic kidney disease with stage 1 through stage 4 chronic kidney disease, or unspecified chronic kidney disease; E11.22 Type 2 diabetes mellitus with diabetic chronic kidney disease; N18.9 Chronic kidney disease, unspecified; J44.9 Chronic obstructive pulmonary disease, unspecified; F25.9 Schizoaffective disorder, unspecified; F32.9 Major depressive disorder, single episode, unspecified; F11.10 Opioid abuse, uncomplicated; F17.210 Nicotine dependence, cigarettes, uncomplicated; R00.0 Tachycardia, unspecified; Z91.14 Patient's other noncompliance with medication regimen
CPT/HCPCS: 36415; 71045-TC-FY; 80053; 82010; 82550; 82803; 82962; 83605; 83690; 84484; 85025; 93005; 93010; 99285-25; U0003

== ENCOUNTER 2019-12-17 16:17 | Inpatient (IN) | payer OTHER ==
--- OUTSIDE RECORDS SUMMARY | 2019-12-17 16:36 | XMS ---
:1950 Author Organization [facility] Care Team Providers Name Role Phone Jarvis Alyssa HANEY Unavailable Unavailable YANCI ELIZONDO Unavailable Unavailable NITZA FLORES Unavailable Unavailable ED STAFF PHYSICIAN, STAFF Unavailable Unavailable Trent-Aaron, Carola Unavailable [phone] Trent-Aaron, Carola Unavailable [phone] EMILIANO GOMEZ, PATRICIA Unavailable Unavailable ZUNASSIGNED, ZUNASSIGNED Unavailable Unavailable Heide Clemons MD Unavailable Unavailable Re-disclosure Warning The records that you are about to access may contain information from federally- assisted alcohol or drug abuse programs. If such information is present, then the following federally mandated warning applies: This information has been disclosed to you from records protected by federal confidentiality rules (42 CFR part 2). The federal rules prohibit you from making any further disclosure of this information unless further disclosure is expressly permitted by the written consent of the person to whom it pertains or as otherwise permitted by 42 CFR part 2. A general authorization for the release of medical or other information is NOT sufficient for this purpose. The Federal rules restrict any use of the information to criminally investigate or prosecute any alcohol or drug abuse patient.The records that you are about to access may contain highly sensitive health information, the redisclosure of which is protected by Article 27-F of the [facility] Public Health law. If you continue you may haveaccess to information: Regarding HIV / AIDS; Provided by facilities licensed or operated by the [facility] Office of Mental Health; or Provided by the [facility] Office for People With Developmental Disabilities. If such information is present, then the following [facility] mandated warning applies: This information has been disclosed to you from confidential records which are protected by state law. State law prohibits you from making any further disclosure of this information without the specific written consent of the person to whom it pertains, or as otherwise permitted by law. Any unauthorized further disclosure in violation of state law may result in a fine or mcfp sentence or both. A general authorization for the release of medical or other information is NOT sufficient authorization for further disclosure. Encounters Encounter Providers Location Date Indications Data Source(s ) Attender: [facility] 11/14/2019 NEXT EN ([facility] 11:17:[address] [facility] EDT - Center) 11/14/2019 11:17:00 AM EDT Outpatient Attender: YANCI Dominguez 11/13/2019 Vera [facility] BISHOP 10:05:00 AM Medical Cent gem MCCLELLANdmitter: EDT YANCI PETE Attender: [facility] 11/13/2019 [facility] EN ([facility] 10:05:[address] [facility] EDT - Center) 11/13/2019 10:05:00 AM EDT 11/13/2019 [facility] 12:00:00 AM Medical Cente r EDT - 09/13/2019 12:00:00 AM EDT Emergency Attender: Heide H-HAL6 11/09/2019 [facility] Clemons MDAttender: 10:30:00 PM Medic al Center STAFF ED STAFF EDT - PHYSICIANAdmitter: 11/12/2019 STAFF ED STAFF 01:11:00 PM PHYSICIANReferrer: EDT ZUNASSIGNED ZUNASSIGNED Patient discharged. Inpatient Attender: PATRICIA CUMMINGS H-HAL5 09/05/2019 09:09:00 [facility] TRISTANAttender: NITZA PM EDT - 09/13/2019 [facility] KURLIV Onealender: 05:29:00 PM EDT STAFF ED STAFF PHYSICIANAdmitter: PATRICIA EMILIANO TRISTANReferrer: PATRICIA EMILIANO PATRICIA Patient discharged. Attender: [facility] 03/03/2019 NE XTGEN ([facility] 04:50:00 PM [facility] 03/03/2019 [place]) 04:50:00 PM EST Attender: [facility] 01/30/2019 [place] XTGEN ([facility] 10:07:00 AM [facility] 01/30/2019 [place]) 10:07:00 AM EST Attender: [facility] 01/18/2019 [place] XTGEN ([facility] 05:12:00 PM [facility] 01/18/2019 [place]) 05:12:00 PM EST Attender: [facility] 12/27/2018 [place] XTGEN ([facility] 05:43:00 PM [facility] 12/27/2018 [place]) 05:43:00 PM EST Attender: [facility] 12/21/2018 [place] XTGEN ([facility] 09:38:00 AM [facility] 12/21/2018 [place]) 09:38:00 AM EST OutpatientOF Attender: [facility] 11/23/2018 NEXTGEN ([facility] 01:54:00 PM EDT [facility] ENT VISIT, 11/23/2018 [place]) EST 01:54:00 PM EDT Attender: [facility] 11/17/2018 [place] XTGEN ([facility] 06:54:00 PM EDT [facility] 11/17/2018 Center) 06:54:00 PM EDT Attender: [facility] 11/06/2018 [place] XTGEN ([facility] 04:37:00 PM EDT [facility] 11/06/2018 [place]) 04:37:00 PM EDT Attender: [facility] 11/06/2018 NE XTGEN ([facility] 04:29:00 PM EDT - [facility] 11/06/2018 [place]) 04:29:00 PM EDT 03/01/2018 [facility] 12:00:00 AM EST - [facility] 12/28/2017 12:00:00 AM EST Medications Medication Brand Start Product Dose Route Administrative Pharmacy [facility] Indications Reaction Description Data Name Date Form Instructions Instructions Source(s) quetiapine Seroqu ORAL active quetiapi ne NEXTGEN 200 MG Oral el 200 2018 {tabl 200 MG Ora l ([facility] Tablet mg 12:00: et} Tablet [facility] 200 mg tablet gabapentin gabape ORAL active take 1 N EXTGEN 300 mg ntin 2018 {caps capsule by ([facility] capsule 300 MG 12:00: ule} oral route Vera sephs Oral 00 AM every Medical Capsul EST bedtime for Center ) e Insomnia quetiapine Seroqu ORAL complet quetiap ine NEXTGEN 200 MG Oral el 200 2018 {tbl} ed 200 MG Ora l (Saint Tablet mg 12:00: Tablet [facility] [[facility]quel] [facility] 00 [facility] 200 mg tablet 24 HR Effexo ORAL active 24 HR NEXTGEN venlafaxine r XR 2018 {caps venlafaxine ([facility] 150 MG 150 mg 12:00: ule} 150 MG [facility] Extended capsul 00 AM Extended Medi homa Release e,exte EST Release Oral Ce nter) Oral nded Capsule Capsule releas [Effexor] [Effexor] e Effexor XR 150 mg capsule,ext ended release quetiapine Seroqu ORAL complet quetiap ine NEXTGEN 200 MG Oral el 200 2018 {tbl} ed 200 MG Ora l ([facility] Tablet mg 12:00: Tablet Ag[facility] [Seroquel] tablet 00 AM [facility]) 200 mg tablet 24 HR Effexo ORAL complet 24 HR NEXTGE N venlafaxine r XR 2018 {caps ed venlafaxine ([facility] 150 MG 150 mg 12:00: ule} 150 MG Ag[place]in Extended capsul 00 AM Extended Medi homa Release e,exte EST Release Oral Ce nter) Oral nded Capsule Capsule releas [Effexor] [Effexor] e Effexor XR 150 mg capsule,ext ended release gabapentin gabape ORAL complet take 1 NEXTGEN 300 MG Oral ntin 2018 {caps ed capsule by ( [facility] Capsule 300 mg 12:00: ule} oral route Vera sephs gabapentin capsul 00 AM every Medic al 300 mg e EST bedtime for Center ) capsule Insomnia quetiapine Seroqu ORAL complet quetiap ine NEXTGEN 200 MG Oral el 200 2018 {tbl} ed 200 MG Ora l (Saint Tablet mg 12:00: Tablet Agustin [Seroquel] tablet 00 AM [Seroque[facility] [place]) 200 mg tablet gabapentin gabape ORAL complet take 1 NEXTGEN 300 MG Oral ntin 2018 {caps ed capsule by ( [facility] Capsule 300 mg 12:00: ule} oral route Vera sephs gabapentin capsul 00 AM every Medic al 300 mg e EDT bedtime for Center ) capsule Insomnia Zolpidem Ambien .00 ORAL complet Zolpidem NEXTGEN tartrate 5 5 mg 2018 {tbl} ed tartrate 5 (S aint MG Oral tablet 12:00: MG Oral Edward hs Tablet 00 AM Tablet Medical [Ambien] EDT [Ambien] Center) Ambien 5 mg tablet 24 HR Effexo ORAL complet 24 HR NEXTGE N venlafaxine r XR 2018 {caps ed venlafaxine ([facility] 150 MG 150 mg 12:00: ule} 150 MG Agsutin Extended capsul 00 AM Extended Medi homa Release e,exte EDT Release Oral Ce nter) Oral nded Capsule Capsule releas [Effexor] [Effexor] e Effexor XR 150 mg capsule,ext ended release quetiapine Seroqu ORAL complet quetiap ine NEXTGEN 200 MG Oral el 200 2018 {tbl} ed 200 MG Ora l ([facility] Tablet mg 12:00: Tablet [place] [Seroquel] tablet 00 AM [Seroquel] Medical Seroquel EDT Center) 200 mg tablet Hydroxyzine hydrox ORAL complet take 1 NEXTGEN Hydrochlori yzine 2019 {tbl} ed tablet by ( [facility] de 50 MG HCl 50 12:00: oral route 3 [facility] Oral Tablet mg 00 AM times every Medical hydroxyzine tablet EDT day for [address] [facility]) HCl 50 mg anxiety tablet Zolpidem Ambien .00 ORAL complet Zolpidem NEXTGEN tartrate 5 5 mg 2018 {tbl} ed tartrate 5 (S aint MG Oral tablet 12:00: MG Oral Edward hs Tablet 00 AM Tablet Medical [Ambien] EDT [Ambien] Center) Ambien 5 mg tablet 24 HR Effexo ORAL complet 24 HR NEXTGE N venlafaxine r XR 2019 {caps ed venlafaxine ([facility] 150 MG 150 mg 12:00: ule} 150 MG [place] Extended capsul 00 AM Extended Medi homa Release e,exte EDT Release Oral Ce nter) Oral nded Capsule Capsule releas [Effexor] [Effexor] e Effexor XR 150 mg capsule,ext ended release Insurance Providers Payer name Policy type Policy ID Covered Covered constitution party's Policy P rosalba / Coverage constitution party ID relationship to [facility] ormation type marinelli MEDICAID [id number] SP [id number] MEDICARE [id number] SP [id number] M [id number] 01 [id number] W [id number] 01 [id number] W [id number] 01 [id number] M [id number] 01 [id number] M [id number] 01 [id number] W [id number] 01 [id number] 01 [id number] M SANS SOUCI [id number] LONG TERM MEDICAID [id number] SP [id number] BLUE CROSS [id number] SP [id number] SENIOR PLAN BLUE CROSS [id number] SP [id number] SENIOR PLAN DEVANG MEDICARE [id number] SP [id number] MEDICAID [id number] SP [id number] JULISSA [id number] SP [id number] MEDICARE [facility] MEDICARE [id number] SP [id number] UNITED [id number] HEALTHCARE (MEDICARE) DEVANG MEDICARE [id number] SP [id number] MEDICARE [id number] SP [id number] Dental [id number] S [id number] [employer] MKD Superior [id number] S [id number] Vision MKD Marie [facility] [id number] S [id number] FFS Medicaid [facility] [id number] S [id number] Options MKD Medicaid [id number] S [id number] Wrap Claims MVP Medicaid [id number] S [id number] F Managed Care Problems, Conditions, and Diagnoses Code Display Name Description Problem Type Effective Data Dates Source(s) F32.9 Major depressive MAJOR DEPRESSIVE Diagnosis 11/13/2019 [facility] disorder, single DISORDER, SINGLE 10:05:00 AM M edical episode, unspecified EPISODE, EDT Cent er UNSPECIFIED E87.1 Hypo-osmolality and HYPO-OSMOLALITY Diagnosis 11/09/2019 [facility] hyponatremia AND HYPONATREMIA 10:30:00 PM Medic al EDT Center R82.81 PYURIA PYURIA Diagnosis 11/09/2019 [facility] 10:30:00 PM Medical EDT Center E11.65 Type 2 diabetes TYPE 2 DIABETES Diagnosis 11/09/2019 [facility] mellitus with MELLITUS WITH 10:30:00 PM Medical hyperglycemia HYPERGLYCEMIA EDT Center F41.0 Panic disorder PANIC DISORDER Diagnosis 11/09/2019 [place] [episodic paroxysmal (EPISODIC 10:30:00 PM Med ical anxiety] PAROXYSMAL EDT Center ANXIETY) R06.00 Dyspnea, unspecified DYSPNEA, Diagnosis 11/09/2019 [facility] UNSPECIFIED 10:30:00 PM Medical EDT Center R33.9 Retention of urine, RETENTION OF Diagnosis 09/13/2019 Huy j[facility]us [facility] unspecified URINE, UNSPECIFIED 05:29:00 PM [facility] EDT Center F31.9 Bipolar disorder, BIPOLAR DISORDER, Diagnosis 09/13/2019 [place] unspecified UNSPECIFIED 05:29:00 PM Medical EDT Center F17.210 Nicotine dependence, NICOTINE Diagnosis 09/13/2019 [facility] [place] cigarettes, DEPENDENCE, 05:29:00 PM Medical uncomplicated CIGARETTES, EDT Center UNCOMPLICATED R07.9 Chest pain, CHEST PAIN, Diagnosis 09/13/2019 [facility] unspecified UNSPECIFIED 05:29:00 PM Medical EDT Center F41.9 Anxiety disorder, ANXIETY DISORDER, Diagnosis 09/13/2019 [place] unspecified UNSPECIFIED 05:29:00 PM Medical EDT Center E11.00 Type 2 diabetes TYPE 2 DIAB W Diagnosis 09/13/2019 [place] mellitus with HYPROSM W/O NONKET 05:29:00 PM Me dical hyperosmolarity HYPRGLY-HYPROS EDT Cente r without nonketotic COMA ([facility]) hyperglycemic-[facility] smolar [facility] 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 09/13/2019 [place] use of insulin (CURRENT) USE OF 05:29:00 PM Med ical INSULIN EDT Center R06.02 Shortness of breath SHORTNESS OF Diagnosis 09/05/2019 Huy nt [facility] BREATH 09:09:00 PM Medical EDT Center Surgeries/Procedures Procedure Description Date Indications Data Source(s) OFFICE/OUTPATIENT 11/23/2018 EUNICEGEN ([place] [facility] VISIT, EST 12:00:00 AM EDT - Medical Ce nter) 11/23/2018 12:00:00 AM EDT Results ID Date Data Source LIPID.[id number] 11/11/2019 06:45:00 AM EDT [facility] Center Name Value Range Interpretation Description Data Sup porting Code Source(s) Document(s ) UNK < 100 <content [facility] styleCode="[facility]ane [facility] d">LDL-Cholest [facility] an[facility]y Center </content>83 MG/DL<content styleCode="Iva lics"> (< 100 MG/DL)</conten t> UNK > 60 Below low normal <content [facility] styleCode="Shane [facility] d">HDL- Medical Cholesterol Center </content>48 MG/DL L<content styleCode="Iva lics"> (> 60 MG/DL)</conten t> Triglyceride < 150 Above high normal <content Saint [Mass/volume] in styleCode="[facility] Serum or Plasma d">Triglycerid Medical Center </content>249 MG/DL H<content styleCode="Iva lics"> (< 150 MG/DL)</conten t> Cholesterol -<200 <content Saint [Mass/volume] in styleCode="[facility] Serum or Plasma d">Cholesterol Medical </content>181 Center MG/DL<content styleCode="Iva lics"> (-<200 MG/DL)</conten t> ID Date Data Source MIKHAILMROUTINECCDA.[id number] 11/11/2019 06:45:00 AM EDT [facility] -0400 Name Value Range Interpretation Code Description Data Adelita rce(s) Supporting Document(s ) UNK 4.2-5.8 Above high normal <content [facility] styleCode="Bold" Medical Cente r >Hemoglobin A1C </content>13.1 % H<content styleCode="Itali cs"> (4.2-5.8 %)</content> ID Date Data Source Liver 11/10/2019 06:00:[address] [facility] Profile.[id number] Name Value Range Interpretation Description Data Sup porting Code Source(s) Document(s ) Aspartate 14-36 <content [facility] aminotransferase styleCode="Bold"> Edward hs [Enzymatic Aspartate Medical activity/volume] Aminotransferase Center in Serum or Plasma (AST) </content>21 IU/L<content styleCode="Italic s"> (14-36 IU/L)</content> Bilirubin.total 0.2-1.3 <content [facility] [Mass/volume] in styleCode="Bold"> Edward hs Serum or Plasma Bilirubin Total Medical </content>0.2 Center MG/DL<content styleCode="Italic s"> (0.2-1.3 MG/DL)</content> Alanine 7-30 <content [facility] aminotransferase styleCode="Bold"> Edward hs [Enzymatic Alanine Medical activity/volume] Aminotransferase Center in Serum or Plasma (ALT) </content>25 IU/L<content styleCode="Italic s"> (7-30 IU/L)</content> Albumin 3.5-5.0 <content [facility] [Mass/volume] in styleCode="Bold"> Edward hs Serum or Plasma Albumin Medical </content>4.1 Center G/DL<content styleCode="Italic s"> (3.5-5.0 G/DL)</content> Alkaline 38-126 <content [facility] phosphatase styleCode="Bold"> [facility] [Enzymatic Alkaline Medical activity/volume] Phosphatase (ALP) Cente r in Serum or Plasma </content>86 IU/L<content styleCode="Italic s"> (38-126 IU/L)</content> ID Date Data Source Hormones.[id number] 11/10/2019 06:00:00 AM EDT [facility] Name Value Range Interpretation Description Data Sup porting Code Source(s) Document(s ) Thyrotropin 0.465-4. <content [facility] [Units/volume] 68 styleCode="Shane Agustin in Serum or d">Thyroid Medical Plasma by Stimulating Center Detection Hormone limit <= 0.05 </content>2.12 mIU/L MIU/L<content styleCode="Iva lics"> (0.465-4.68 MIU/L)</conten t> ID Date Data Source HematologyRou.[id number] 11/10/2019 06:00:00 AM EDT [facility] 0400 Name Value Range Interpretation Description Data Sup porting Code Source(s) Document(s ) Hemoglobin 12.3-16. Below low normal <content [facility] [Mass/volume] in 0 styleCode="Bold [facility] Blood ">Hemoglobin Medical </content>10.7 Center G/DL L<content styleCode="Ital ics"> (12.3-16.0 G/DL)</content> Erythrocytes 4.0-5.1 Below low normal <content Saint [#/volume] in styleCode="Bold [facility] Blood by ">Red Blood Medical Automated count Cell Count Center </content>3.57 MCUMM L<content styleCode="Ital ics"> (4.0-5.1 MCUMM)</content > Hematocrit 36.0-46. Below low normal <content Saint [Volume 0 styleCode="Bold [facility] Fraction] of ">Hematocrit Medical Blood by </content>31.8 Center Automated count % L<content styleCode="Ital ics"> (36.0-46.0 %)</content> Leukocytes 4.4-11.0 <content [facility] [#/volume] in styleCode="Bold [facility] Blood by ">White Blood Medical Automated count Cell Count Center </content>9.43 KCUMM<content styleCode="Ital ics"> (4.4-11.0 KCUMM)</content > Erythrocyte mean 32.0-37. <content [facility] corpuscular 0 styleCode="Bold [facility] hemoglobin ">Mean Corpus. Medical concentration Hgb Center [Mass/volume] by Concentration Automated count (MCHC) </content>33.6 G/DL<content styleCode="Ital ics"> (32.0-37.0 G/DL)</content> Erythrocyte mean 26.0-34. <content [facility] corpuscular 0 styleCode="Bold [facility] hemoglobin ">Mean Medical [Entitic mass] Corposcular Center by Automated Hemoglobin count </content>30.0 PG<content styleCode="Ital ics"> (26.0-34.0 PG)</content> Erythrocyte mean 80.0-100 <content [facility] corpuscular .0 styleCode="Bold [facility] volume [Entitic ">Mean Medical volume] by Corpuscular Center Automated count Volume </content>89.1 FL<content styleCode="Ital ics"> (80.0-100.0 FL)</content> Erythrocyte 11.5-14. <content [facility] distribution 5 styleCode="Bold [facility] width [Ratio] by ">Red Cell Medical Automated count Distribution Center Width </content>12.7 %<content styleCode="Ital ics"> (11.5-14.5 %)</content> Platelet mean 8.0-11.0 <content Saint volume [Entitic styleCode="Bold [facility] volume] in Blood ">Mean Platelet Medical by Automated Volume Center count </content>10.9 FL<content styleCode="Ital ics"> (8.0-11.0 FL)</content> Platelets 130-400 <content Saint [#/volume] in styleCode="Bold [facility] Blood by ">Platelet Medical Automated count Count Center </content>171 KCUMM<content styleCode="Ital ics"> (130-400 KCUMM)</content > UNK 0.0 <content [facility] styleCode="Bold [facility] ">Nucleated Red Medical Blood Cell Center Count </content>0.00 KCUMM<content styleCode="Ital ics"> (0.0 KCUMM)</content > UNK 0 <content Saint styleCode="Bold Ag[facility]in ">Nucleated Red Medical Blood Cell Center </content>0.0 /100<content styleCode="Ital ics"> (0 /100)</content> ID Date Data Source GFR(Creatinine).[id number] 11/10/2019 06:00:00 AM EDT [facility] 0-0400 Name Value Range Interpretation Code Description Data Adelita rce(s) Supporting Document(s ) UNK > 60 Below low normal <content [facility] styleCode="Bold"> Medical Cent er EGFR </content>36 GFR L<content styleCode="Italic s"> (> 60 GFR)</content> ID Date Data Source CHMROUTINECCDA.[id number] 11/10/2019 06:00:00 AM EDT [facility] -0400 Name Value Range Interpretation Description Data Sup porting Code Source(s) Document(s ) UNK >= 1.0 <content [facility] styleCode="Bold Medical ">AG Ratio Center </content>1.2 <content styleCode="Ital ics"> (>= 1.0 )</content> UNK 2.3-3.5 <content [facility] styleCode="Bold Medical ">Globulin Center </content>3.4 G/DL<content styleCode="Ital ics"> (2.3-3.5 G/DL)</content> Protein 6.3-8.2 <content [facility] [Mass/volum styleCode="Bold Medical e] in Serum ">Total Protein Center or Plasma </content>7.5 G/DL<content styleCode="Ital ics"> (6.3-8.2 G/DL)</content> ID Date Data Source [id number] 11/10/2019 06:00:00 AM EDT [facility] Name Value Range Interpretation Description Data Sup porting Code Source(s) Document(s ) Sodium 137-145 Below low <content Saint [Moles/volume] in normal styleCode="Bold"> Marlene phs Serum or Plasma Sodium Medical </content>134 Center MEQ/L L<content styleCode="Italic s"> (137-145 MEQ/L)</content> Carbon dioxide, 22-30 <content [facility] total styleCode="Bold"> [place] [Moles/volume] in Carbon Dioxide Medical Serum or Plasma </content>26 Center MEQ/L<content styleCode="Italic s"> (22-30 MEQ/L)</content> Potassium 3.5-5.3 <content [facility] [Moles/volume] in styleCode="Bold"> Marlene phs Serum or Plasma Potassium Medical </content>4.2 Center MEQ/L<content styleCode="Italic s"> (3.5-5.3 MEQ/L)</content> Chloride 98-107 Below low <content [facility] [Moles/volume] in normal styleCode="Bold"> Marlene phs Serum or Plasma Chloride Medical </content>97 Center MEQ/L L<content styleCode="Italic s"> (98-107 MEQ/L)</content> UNK 7-17 Above high <content Saint normal styleCode="Bold"> [facility] BUN </content>28 Medical MG/DL H<content Center styleCode="Italic s"> (7-17 MG/DL)</content> Glucose 74-106 Above upper <content Saint [Mass/volume] in panic limits styleCode="Bold"> Vera sephs Serum or Plasma Glucose Medical </content><conten Center t styleCode="Bold"> 414 MG/DL HH</content><cont ent styleCode="Italic s"> (74-106 MG/DL)</content> Creatinine 0.5-1.3 Above high <content [facility] [Mass/volume] in normal styleCode="Bold"> Edward hs Serum or Plasma Creatinine Medical </content>1.5 Center MG/DL H<content styleCode="Italic s"> (0.5-1.3 MG/DL)</content> Calcium 8.4-10. <content [facility] [Mass/volume] in 2 styleCode="Bold"> Edward hs Serum or Plasma Calcium Medical </content>10.0 Center MG/DL<content styleCode="Italic s"> (8.4-10.2 MG/DL)</content> Alanine 7-30 <content [facility] aminotransferase styleCode="Bold"> Edward hs [Enzymatic Alanine Medical activity/volume] Aminotransferase Center in Serum or Plasma (ALT) </content>25 IU/L<content styleCode="Italic s"> (7-30 IU/L)</content> Aspartate 14-36 <content [facility] aminotransferase styleCode="Bold"> Edward hs [Enzymatic Aspartate Medical activity/volume] Aminotransferase Center in Serum or Plasma (AST) </content>21 IU/L<content styleCode="Italic s"> (14-36 IU/L)</content> UNK > 60 Below low <content [facility] normal styleCode="Bold"> [facility] EGFR </content>36 Medical GFR L<content Center styleCode="Italic s"> (> 60 GFR)</content> Alkaline 38-126 <content [facility] phosphatase styleCode="Bold"> [facility] [Enzymatic Alkaline Medical activity/volume] Phosphatase (ALP) Cente r in Serum or Plasma </content>86 IU/L<content styleCode="Italic s"> (38-126 IU/L)</content> Bilirubin.total 0.2-1.3 <content [facility] [Mass/volume] in styleCode="Bold"> Edward hs Serum or Plasma Bilirubin Total Medical </content>0.2 Center MG/DL<content styleCode="Italic s"> (0.2-1.3 MG/DL)</content> Albumin 3.5-5.0 <content [facility] [Mass/volume] in styleCode="Bold"> Ewdard hs Serum or Plasma Albumin Medical </content>4.1 Center G/DL<content styleCode="Italic s"> (3.5-5.0 G/DL)</content> ID Date Data Source Urinalysis.[id number] 11/10/2019 01:19:00 AM EDT [facility] 0 Name Value Range Interpretation Description Data Sup porting Code Source(s) Document(s ) Color of Urine YELLOW <content [facility] styleCode="Shane Maganas d">Color, Medical Urine Center </content>YELL OW <content styleCode="Iva lics"> (YELLOW )</content> UNK CLEAR <content [facility] styleCode="Shane Maganas d">Urine Medical Clarity Center </content>HAZY <content styleCode="Iva lics"> (CLEAR )</content> Glucose NEGATIVE <content Saint [Mass/volume] styleCode="Shane Maganas in Urine by d">Urine Medical Test strip Glucose Center </content>>=10 00 MG/DL<content styleCode="Iva lics"> (NEGATIVE MG/DL)</conten t> UNK NEGATIVE <content [facility] styleCode="Shane Maganas d">Urine Medical Bilirubin Center </content>NEGA TIVE <content styleCode="Iva lics"> (NEGATIVE )</content> Specific 1.015-1.02 Below low normal <content [facility] gravity of 5 styleCode="Shane Velez Urine by Test d">Urine Medical strip Specific Center [place] </content>1.01 0 L<content styleCode="Iva lics"> (1.015-1.025 )</content> Ketones NEGATIVE <content [facility] [Mass/volume] styleCode="Shane Maganas in Urine by d">Urine Medical Test strip Ketone Center </content>NEGA TIVE MG/DL<content styleCode="Iva lics"> (NEGATIVE MG/DL)</conten t> Hemoglobin NEGATIVE <content [facility] [Presence] in styleCode="Shane Velez Urine by Test d">Urine Blood Medical strip </content>TRAC Center E <content styleCode="Iva lics"> (NEGATIVE )</content> Protein NEGATIVE <content [facility] [Mass/volume] styleCode="Shane Maganas in Urine by d">Urine Medical Test strip Protein Center </content>NEGA TIVE MG/DL<content styleCode="Iva lics"> (NEGATIVE MG/DL)</conten t> Nitrite NEGATIVE <content [facility] [Presence] in styleCode="Shane Maganas Urine by Test d">Urine Medical strip Nitrite Center </content>POSI TIVE <content styleCode="Iva lics"> (NEGATIVE )</content> pH of Urine by 4.5-8.0 <content Saint Test strip styleCode="Shane Agustin d">Urine pH Medical </content>6.0 Center <content styleCode="Iva lics"> (4.5-8.0 )</content> Leukocyte NEGATIVE <content [facility] esterase styleCode="Shane Maganas [Presence] in d">Urine Medical Urine by Test Leukocyte Center strip </content>TRAC E <content styleCode="Iva lics"> (NEGATIVE )</content> Urobilinogen 0.2-1.0 <content [facility] [Units/volume] styleCode="Shane Maganas in Urine by d">Urine Medical Test strip Urobilinogen Center </content>0.2 MG/DL<content styleCode="Iva lics"> (0.2-1.0 MG/DL)</conten t> UNK NONE SEEN <content [facility] styleCode="Shane Agustin d">Epithelial Medical Cell Center </content>5 - 10 HPF<content styleCode="Iva lics"> (NONE SEEN HPF)</content> UNK NEGATIVE <content [facility] styleCode="Shane Agustin d">Urine Medical Bacteria Center </content>MANY HPF<content styleCode="Iva lics"> (NEGATIVE HPF)</content> UNK 0-3 <content [facility] styleCode="Shane Agustin d">Urine Red Medical Blood Cell Center </content>3-5 HPF<content styleCode="Iva lics"> (0-3 HPF)</content> UNK 0-3 <content [facility] styleCode="Shane Agustin d">Urine White Medical Blood Cell Center </content>50 - 100 HPF<content styleCode="Iva lics"> (0-3 HPF)</content> UNK NONE SEEN <content [facility] styleCode="Shane Agustin d">Urine Mucus Medical </content>MODE Center RATE HPF<content styleCode="Iva lics"> (NONE SEEN HPF)</content> ID Date Data Source Microbiology.[id number] 11/10/2019 01:19:00 AM EDT [facility] 400 Name Value Range Interpretation Code Description Data Adelita rce(s) Supporting Document(s ) UNK <item><content [facility] styleCode="Bold">Cu Medical Ce nter lture Report </content>
<tab le><tbody><tr><td>S pecimen Number:</td><td>[id number]</td></tr><tr ><td>Sample Collection Date/Time: </td><td>11/10/2019 1:19 AM</td></tr><tr><td >Specimen Source:</td><td>URI NE</td></tr><tr><td >Urine Culture:</td><td>Co llection Plate Date: 11/10/2019 01:38 </td></tr><tr><td>C ulture Status:</td><td>Fin al </td></tr><tr><td>C ulture Report:</td><td>PLE ASE REPEAT SPECIMEN COLLECTION </td></tr><tr><td>O rganism 1:</td><td>COAGULAS E NEGATIVE STAPHYLOCOCCUS </td></tr><tr><td>O rganism 2:</td><td>Gram-neg ative pattie - Net Architect species </td></tr><tr><td>O rganism 3:</td><td>Gram-neg ative pattie - Net Architect species </td></tr><tr><td>O rganism 4:</td><td>Gram-neg ative pattie - Net Architect species </td></tr></tbody>< /table>
<table border="2"><tbody>< tr><td></td><td>1</ td><td>2</td><td>3< /td><td>4</td></tr> <tr><td>Comment</td ><td></td><td></td> <td></td><td></td>< /tr><tr><td>Result Value</td><td>COAGU LASE NEGATIVE STAPHYLOCOCCUS </td><td>Gram-negat [place] pattie - Net Architect species </td><td>Gram-negat [place] pattie - Net Architect species </td><td>Gram-negat [place] pattie - Net Architect species </td></tr><tr><td>R esult Status</td><td>Kina l Result</td><td>Kina l Result</td><td>Kina l Result</td><td>Kina l Result</td></tr><tr ><td></td><td></td> <td></td><td></td>< td></td></tr></tbod y></table></item> UNK <item><content [facility] styleCode="Bold">Cu Medical Ce nter lture Status </content>
<tab le><tbody><tr><td>S pecimen Number:</td><td>[id number]</td></tr><tr ><td>Sample Collection Date/Time: </td><td>11/10/2019 1:19 AM</td></tr><tr><td >Specimen Source:</td><td>URI NE</td></tr><tr><td >Culture Status:</td><td>Fin al </td></tr><tr><td>C ulture Report:</td><td>PLE ASE REPEAT SPECIMEN COLLECTION </td></tr><tr><td>U rine Culture:</td><td>Co llection Plate Date: 11/10/2019 01:38 </td></tr><tr><td>O rganism 1:</td><td>COAGULAS E NEGATIVE STAPHYLOCOCCUS </td></tr><tr><td>O rganism 2:</td><td>Gram-neg ative pattie - Net Architect species </td></tr><tr><td>O rganism 3:</td><td>Gram-neg ative pattie - Net Architect species </td></tr><tr><td>O rganism 4:</td><td>Gram-neg ative pattie - Net Architect species </td></tr></tbody>< /table>
<table border="2"><tbody>< tr><td></td><td>1</ td><td>2</td><td>3< /td><td>4</td></tr> <tr><td>Comment</td ><td></td><td></td> <td></td><td></td>< /tr><tr><td>Result Value</td><td>COAGU LASE NEGATIVE STAPHYLOCOCCUS </td><td>Gram-negat [place] pattie - Net Architect species </td><td>Gram-negat [place] pattie - Net Architect species </td><td>Gram-negat [place] pattie - Net Architect species </td></tr><tr><td>R esult Status</td><td>Kina l Result</td><td>Kina l Result</td><td>Kina l Result</td><td>Kina l Result</td></tr><tr ><td></td><td></td> <td></td><td></td>< td></td></tr></tbod y></table></item> ID Date Data Source [facility].[id number] 11/10/2019 01:19:00 AM EDT [facility] -0400 Name Value Range Interpretation Description Data Sup porting Code Source(s) Document(s ) Cannabinoids <content Saint [Presence] in styleCode="Shane [facility] Urine by Screen d">Cannabinoid Medical method >50 ng/mL s Center </content>NEGA TIVE NG/ML (Reference Range: not available)<br/ > ID Date Data Source [id number] 11/10/2019 12:41:00 AM EDT [facility] -0400 Name Value Range Interpretation Code Description Data Adelita rce(s) Supporting Document(s ) UNK NEGATIVE <content [facility] styleCode="Bold" Medical Cente r >Acetone </content>NEGATI VE <content styleCode="Itali cs"> (NEGATIVE )</content> ID Date Data Source Liver 11/10/2019 12:30:[address] [facility] Profile.[id number] Name Value Range Interpretation Description Data Sup porting Code Source(s) Document(s ) Alanine 7-30 <content [facility] aminotransferase styleCode="Bold"> Edward hs [Enzymatic Alanine Medical activity/volume] Aminotransferase Center in Serum or Plasma (ALT) </content>29 IU/L<content styleCode="Italic s"> (7-30 IU/L)</content> Alkaline 38-126 <content [facility] phosphatase styleCode="Bold"> Agustin [Enzymatic Alkaline Medical activity/volume] Phosphatase (ALP) Cente r in Serum or Plasma </content>109 IU/L<content styleCode="Italic s"> (38-126 IU/L)</content> Aspartate 14-36 <content [facility] aminotransferase styleCode="Bold"> Edward hs [Enzymatic Aspartate Medical activity/volume] Aminotransferase Center in Serum or Plasma (AST) </content>24 IU/L<content styleCode="Italic s"> (14-36 IU/L)</content> Albumin 3.5-5.0 <content [facility] [Mass/volume] in styleCode="Bold"> Edward hs Serum or Plasma Albumin Medical </content>4.5 Center G/DL<content styleCode="Italic s"> (3.5-5.0 G/DL)</content> Bilirubin.total 0.2-1.3 <content [facility] [Mass/volume] in styleCode="Bold"> Edward hs Serum or Plasma Bilirubin Total Medical </content>0.4 Center MG/DL<content styleCode="Italic s"> (0.2-1.3 MG/DL)</content> UNK 0.0-0.3 <content Saint styleCode="Bold"> [facility] Bilirubin, Direct Medical </content>< 0.2 Center MG/DL<content styleCode="Italic s"> (0.0-0.3 MG/DL)</content> ID Date Data Source HematologyRou.[id number] 11/10/2019 12:30:00 AM EDT [facility] 0400 Name Value Range Interpretation Description Data Sup porting Code Source(s) Document(s ) Leukocytes 4.4-11.0 Above high <content Saint [#/volume] in normal styleCode="Bold Agustin Blood by ">White Blood Medical Automated count Cell Count Center </content>11.06 KCUMM H<content styleCode="Ital ics"> (4.4-11.0 KCUMM)</content > Erythrocyte mean 80.0-100 <content [facility] corpuscular .0 styleCode="Bold Agustin volume [Entitic ">Mean Medical volume] by Corpuscular Center Automated count Volume </content>88.6 FL<content styleCode="Ital ics"> (80.0-100.0 FL)</content> Erythrocyte mean 26.0-34. <content [facility] corpuscular 0 styleCode="Bold Agustin hemoglobin ">Mean Medical [Entitic mass] Corposcular Center by Automated Hemoglobin count </content>29.5 PG<content styleCode="Ital ics"> (26.0-34.0 PG)</content> Erythrocytes 4.0-5.1 <content [facility] [#/volume] in styleCode="Bold Agustin Blood by ">Red Blood Medical Automated count Cell Count Center </content>4.04 MCUMM<content styleCode="Ital ics"> (4.0-5.1 MCUMM)</content > Hematocrit 36.0-46. Below low normal <content [facility] [Volume 0 styleCode="Bold Agustin Fraction] of ">Hematocrit Medical Blood by </content>35.8 Center Automated count % L<content styleCode="Ital ics"> (36.0-46.0 %)</content> Hemoglobin 12.3-16. Below low normal <content [facility] [Mass/volume] in 0 styleCode="Bold Agustin Blood ">Hemoglobin Medical </content>11.9 Center G/DL L<content styleCode="Ital ics"> (12.3-16.0 G/DL)</content> Erythrocyte mean 32.0-37. <content [facility] corpuscular 0 styleCode="Bold Agustin hemoglobin ">Mean Corpus. Medical concentration Hgb Center [Mass/volume] by Concentration Automated count (MCHC) </content>33.2 G/DL<content styleCode="Ital ics"> (32.0-37.0 G/DL)</content> Platelets 130-400 <content [facility] [#/volume] in styleCode="Bold Agustin Blood by ">Platelet Medical Automated count Count Center </content>229 KCUMM<content styleCode="Ital ics"> (130-400 KCUMM)</content > Erythrocyte 11.5-14. <content [facility] distribution 5 styleCode="Bold Agustin width [Ratio] by ">Red Cell Medical Automated count Distribution Center Width </content>12.8 %<content styleCode="Ital ics"> (11.5-14.5 %)</content> Platelet mean 8.0-11.0 <content [facility] volume [Entitic styleCode="Bold Agustin volume] in Blood ">Mean Platelet Medical by Automated Volume Center count </content>10.7 FL<content styleCode="Ital ics"> (8.0-11.0 FL)</content> UNK 0 <content [facility] styleCode="Bold Agustin ">Nucleated Red Medical Blood Cell Center </content>0.0 /100<content styleCode="Ital ics"> (0 /100)</content> UNK 0.0 <content Saint styleCode="Bold Agustin ">Nucleated Red Medical Blood Cell Center Count </content>0.00 KCUMM<content styleCode="Ital ics"> (0.0 KCUMM)</content > ID Date Data Source GFR(Creatinine).[id number] 11/10/2019 12:30:00 AM EDT [facility] 0-0400 Name Value Range Interpretation Code Description Data Adelita rce(s) Supporting Document(s ) UNK > 60 Below low normal <content [facility] styleCode="Bold"> Medical Cent er EGFR </content>36 GFR L<content styleCode="Italic s"> (> 60 GFR)</content> ID Date Data Source BMP.[id number] 11/10/2019 12:30:00 AM EDT [facility] Name Value Range Interpretation Description Data Sup porting Code Source(s) Document(s ) Sodium 137-145 Below low <content Saint [Moles/volume] in normal styleCode="Bold"> [facility] Serum or Plasma Sodium Medical </content>131 Center MEQ/L L<content styleCode="Italic s"> (137-145 MEQ/L)</content> Chloride 98-107 Below low <content [facility] [Moles/volume] in normal styleCode="Bold"> [facility] Serum or Plasma Chloride Medical </content>93 Center MEQ/L L<content styleCode="Italic s"> (98-107 MEQ/L)</content> Potassium 3.5-5.3 <content [facility] [Moles/volume] in styleCode="Bold"> [facility] Serum or Plasma Potassium Medical </content>4.4 Center MEQ/L<content styleCode="Italic s"> (3.5-5.3 MEQ/L)</content> Carbon dioxide, 22-30 <content Saint total styleCode="Bold"> Agustin [Moles/volume] in Carbon Dioxide Medical Serum or Plasma </content>28 Center MEQ/L<content styleCode="Italic s"> (22-30 MEQ/L)</content> UNK 7-17 Above high <content [facility] normal styleCode="Bold"> Agustin BUN </content>27 Medical MG/DL H<content Center styleCode="Italic s"> (7-17 MG/DL)</content> Creatinine 0.5-1.3 Above high <content Saint [Mass/volume] in normal styleCode="Bold"> Edward hs Serum or Plasma Creatinine Medical </content>1.5 Center MG/DL H<content styleCode="Italic s"> (0.5-1.3 MG/DL)</content> Glucose 74-106 Above upper <content Saint [Mass/volume] in panic limits styleCode="Bold"> Vera wellss Serum or Plasma Glucose Medical </content><conten Center t styleCode="Bold"> 640 MG/DL HH</content><cont ent styleCode="Italic s"> (74-106 MG/DL)</content> Calcium 8.4-10. <content [facility] [Mass/volume] in 2 styleCode="Bold"> Edward hs Serum or Plasma Calcium Medical </content>10.0 Center MG/DL<content styleCode="Italic s"> (8.4-10.2 MG/DL)</content> UNK > 60 Below low <content [facility] normal styleCode="Bold"> Agustin EGFR </content>36 Medical GFR L<content Center styleCode="Italic s"> (> 60 GFR)</content> Alkaline 38-126 <content [facility] phosphatase styleCode="Bold"> Agustin [Enzymatic Alkaline Medical activity/volume] Phosphatase (ALP) Cente r in Serum or Plasma </content>109 IU/L<content styleCode="Italic s"> (38-126 IU/L)</content> Aspartate 14-36 <content [facility] aminotransferase styleCode="Bold"> Edward hs [Enzymatic Aspartate Medical activity/volume] Aminotransferase Center in Serum or Plasma (AST) </content>24 IU/L<content styleCode="Italic s"> (14-36 IU/L)</content> Alanine 7-30 <content [facility] aminotransferase styleCode="Bold"> Edward hs [Enzymatic Alanine Medical activity/volume] Aminotransferase Center in Serum or Plasma (ALT) </content>29 IU/L<content styleCode="Italic s"> (7-30 IU/L)</content> Albumin 3.5-5.0 <content [facility] [Mass/volume] in styleCode="Bold"> Edward hs Serum or Plasma Albumin Medical </content>4.5 Center G/DL<content styleCode="Italic s"> (3.5-5.0 G/DL)</content> Bilirubin.total 0.2-1.3 <content [facility] [Mass/volume] in styleCode="Bold"> Edward hs Serum or Plasma Bilirubin Total Medical </content>0.4 Center MG/DL<content styleCode="Italic s"> (0.2-1.3 MG/DL)</content> ID Date Data Source [id number] 10/21/2019 09:05:00 AM EDT [facility] Name Value Range Interpretation Description Data Sup porting Code Source(s) Document(s ) SARS [facility] coronavirus 2 RNA This lab was ordered by [facility] and reported by [facility]. ID Date Data Source [id number] 09/16/2019 01:31:00 AM EDT [facility] Name Value Range Interpretation Description Data Sup porting Code Source(s) Document(s ) SARS [facility] coronavirus 2 RNA This lab was ordered by Paulette hartman/Wang and reported by [facility]. ID Date Data Source [id number] 09/14/2019 03:12:00 AM EDT [facility] Name Value Range Interpretation Description Data Sup porting Code Source(s) Document(s ) SARS [facility] coronavirus 2 RNA This lab was ordered by [facility] and reported by [facility]. ID Date Data Source GFR(Creatinine).[id number] 09/13/2019 12:25:00 PM EDT [facility] 0-0400 Name Value Range Interpretation Code Description Data Adelita rce(s) Supporting Document(s ) UNK > 60 Below low normal <content [facility] styleCode="Bold"> Medical Cent er EGFR </content>43 GFR L<content styleCode="Italic s"> (> 60 GFR)</content> ID Date Data Source [facility].[id number] 09/13/2019 12:25:00 PM EDT [facility] Name Value Range Interpretation Description Data Sup porting Code Source(s) Document(s ) Potassium 3.5-5.3 <content [facility] [Moles/volume] styleCode="Shane Maganas in Serum or d">Potassium Medical Plasma </content>5.0 Center MEQ/L<content styleCode="Iva lics"> (3.5-5.3 MEQ/L)</conten t> Sodium 137-145 Below low normal <content Saint [Moles/volume] styleCode="Sahne Agustin in Serum or d">Sodium Medical Plasma </content>134 Center MEQ/L L<content styleCode="Iva lics"> (137-145 MEQ/L)</conten t> Chloride 98-107 <content [facility] [Moles/volume] styleCode="Shane Agustin in Serum or d">Chloride Medical Plasma </content>102 Center MEQ/L<content styleCode="Iva lics"> (98-107 MEQ/L)</conten t> Carbon 22-30 <content [facility] dioxide, total styleCode="Shane Maganas [Moles/volume] d">Carbon Medical in Serum or Dioxide Center Plasma </content>22 MEQ/L<content styleCode="Iva lics"> (22-30 MEQ/L)</conten t> UNK 7-17 Above high normal <content [facility] styleCode="Shane Agustin d">BUN Medical </content>26 Center MG/DL H<content styleCode="Iva lics"> (7-17 MG/DL)</conten t> Glucose 74-106 Above high normal <content [facility] [Mass/volume] styleCode="Shane Agustin in Serum or d">Glucose Medical Plasma </content>256 Center MG/DL H<content styleCode="Iva lics"> (74-106 MG/DL)</conten t> Creatinine 0.5-1.3 <content [facility] [Mass/volume] styleCode="Shane Agustin in Serum or d">Creatinine Medical Plasma </content>1.3 Center MG/DL<content styleCode="Iva lics"> (0.5-1.3 MG/DL)</conten t> Calcium 8.4-10.2 <content [facility] [Mass/volume] styleCode="Shane Velez in Serum or d">Calcium Medical Plasma </content>8.8 Center MG/DL<content styleCode="Iva lics"> (8.4-10.2 MG/DL)</conten t> UNK > 60 Below low normal <content [facility] styleCode="Shane Velez d">EGFR Medical </content>43 Center GFR L<content styleCode="Iva lics"> (> 60 GFR)</content> ID Date Data Source Liver 09/13/2019 06:30:[address] [facility] Profile.[id number] Name Value Range Interpretation Description Data Sup porting Code Source(s) Document(s ) Aspartate 14-36 <content [facility] aminotransferase styleCode="Bold"> Edward hs [Enzymatic Aspartate Medical activity/volume] Aminotransferase Center in Serum or Plasma (AST) </content>23 IU/L<content styleCode="Italic s"> (14-36 IU/L)</content> Alanine 7-30 Above high <content [facility] aminotransferase normal styleCode="Bold"> Edward hs [Enzymatic Alanine Medical activity/volume] Aminotransferase Center in Serum or Plasma (ALT) </content>36 IU/L H<content styleCode="Italic s"> (7-30 IU/L)</content> Alkaline 38-126 Above high <content [facility] phosphatase normal styleCode="Bold"> Agustin [Enzymatic Alkaline Medical activity/volume] Phosphatase (ALP) Cente r in Serum or Plasma </content>151 IU/L H<content styleCode="Italic s"> (38-126 IU/L)</content> Albumin 3.5-5.0 Below low <content [facility] [Mass/volume] in normal styleCode="Bold"> Edward hs Serum or Plasma Albumin Medical </content>3.0 Center G/DL L<content styleCode="Italic s"> (3.5-5.0 G/DL)</content> Bilirubin.total 0.2-1.3 <content [facility] [Mass/volume] in styleCode="Bold"> Edward hs Serum or Plasma Bilirubin Total Medical </content>0.3 Center MG/DL<content styleCode="Italic s"> (0.2-1.3 MG/DL)</content> ID Date Data Source HematologyRou.[id number] 09/13/2019 06:30:00 AM EDT [facility] 0400 Name Value Range Interpretation Description Data Sup porting Code Source(s) Document(s ) Erythrocytes 4.0-5.1 Below low normal <content Saint [#/volume] in styleCode="Bold Agustin Blood by ">Red Blood Medical Automated count Cell Count Center </content>2.89 MCUMM L<content styleCode="Ital ics"> (4.0-5.1 MCUMM)</content > Leukocytes 4.4-11.0 <content [facility] [#/volume] in styleCode="Bold Agustin Blood by ">White Blood Medical Automated count Cell Count Center </content>9.64 KCUMM<content styleCode="Ital ics"> (4.4-11.0 KCUMM)</content > Hemoglobin 12.3-16. Below low normal <content [facility] [Mass/volume] in 0 styleCode="Bold Agustin Blood ">Hemoglobin Medical </content>8.9 Center G/DL L<content styleCode="Ital ics"> (12.3-16.0 G/DL)</content> Hematocrit 36.0-46. Below low normal <content [facility] [Volume 0 styleCode="Bold Agustin Fraction] of ">Hematocrit Medical Blood by </content>26.7 Center Automated count % L<content styleCode="Ital ics"> (36.0-46.0 %)</content> Erythrocyte mean 80.0-100 <content [facility] corpuscular .0 styleCode="Bold Agustin volume [Entitic ">Mean Medical volume] by Corpuscular Center Automated count Volume </content>92.4 FL<content styleCode="Ital ics"> (80.0-100.0 FL)</content> Erythrocyte mean 26.0-34. <content [facility] corpuscular 0 styleCode="Bold Agustin hemoglobin ">Mean Medical [Entitic mass] Corposcular Center by Automated Hemoglobin count </content>30.8 PG<content styleCode="Ital ics"> (26.0-34.0 PG)</content> Erythrocyte mean 32.0-37. <content [facility] corpuscular 0 styleCode="Bold Agustin hemoglobin ">Mean Corpus. Medical concentration Hgb Center [Mass/volume] by Concentration Automated count (MCHC) </content>33.3 G/DL<content styleCode="Ital ics"> (32.0-37.0 G/DL)</content> Erythrocyte 11.5-14. <content [facility] distribution 5 styleCode="Bold Agustin width [Ratio] by ">Red Cell Medical Automated count Distribution Center Width </content>13.0 %<content styleCode="Ital ics"> (11.5-14.5 %)</content> Platelets 130-400 <content Saint [#/volume] in styleCode="Bold Agustin Blood by ">Platelet Medical Automated count Count Center </content>181 KCUMM<content styleCode="Ital ics"> (130-400 KCUMM)</content > UNK 0 <content Saint styleCode="Bold Agustin ">Nucleated Red Medical Blood Cell Center </content>0.0 /100<content styleCode="Ital ics"> (0 /100)</content> Platelet mean 8.0-11.0 <content Saint volume [Entitic styleCode="Bold Agustin volume] in Blood ">Mean Platelet Medical by Automated Volume Center count </content>11.0 FL<content styleCode="Ital ics"> (8.0-11.0 FL)</content> UNK 0.0 <content Saint styleCode="Bold Agustin ">Nucleated Red Medical Blood Cell Center Count </content>0.00 KCUMM<content styleCode="Ital ics"> (0.0 KCUMM)</content > ID Date Data Source [facility].[id number] 09/13/2019 06:30:00 AM EDT [facility] -0400 Name Value Range Interpretation Description Data Sup porting Code Source(s) Document(s ) UNK >= 1.0 Below low normal <content Saint styleCode="Shane Maganas d">AG Ratio Medical </content>0.9 Center L<content styleCode="Iva lics"> (>= 1.0 )</content> UNK 2.3-3.5 <content Saint styleCode="Shane Maganas d">Globulin Medical </content>3.3 Center G/DL<content styleCode="Iva lics"> (2.3-3.5 G/DL)</content > Phosphate 2.5-4.5 <content Saint [Mass/volume] styleCode="Shane Maganas in Serum or d">Phosphorus Medical Plasma </content>3.8 Center MG/DL<content styleCode="Iva lics"> (2.5-4.5 MG/DL)</conten t> Magnesium 1.6-2.3 <content Saint [Mass/volume] styleCode="Shane Maganas in Serum or d">Magnesium Medical Plasma </content>1.7 Center MG/DL<content styleCode="Iva lics"> (1.6-2.3 MG/DL)</conten t> Protein 6.3-8.2 <content [facility] [Mass/volume] styleCode="Shane Maganas in Serum or d">Total Medical Plasma Protein Center </content>6.3 G/DL<content styleCode="Iva lics"> (6.3-8.2 G/DL)</content > ID Date Data Source [facility].[id number] 09/13/2019 06:30:00 AM EDT [facility] Name Value Range Interpretation Description Data Sup porting Code Source(s) Document(s ) Sodium 137-145 <content Saint [Moles/volume] in styleCode="Bold"> Marlene phs Serum or Plasma Sodium Medical </content>137 Center MEQ/L<content styleCode="Italic s"> (137-145 MEQ/L)</content> UNK 7-17 Above high <content [facility] normal styleCode="Bold"> Agustin BUN </content>26 Medical MG/DL H<content Center styleCode="Italic s"> (7-17 MG/DL)</content> Carbon dioxide, 22-30 <content [facility] total styleCode="Bold"> Agustin [Moles/volume] in Carbon Dioxide Medical Serum or Plasma </content>26 Center MEQ/L<content styleCode="Italic s"> (22-30 MEQ/L)</content> Potassium 3.5-5.3 <content [facility] [Moles/volume] in styleCode="Bold"> Marlene phs Serum or Plasma Potassium Medical </content>4.2 Center MEQ/L<content styleCode="Italic s"> (3.5-5.3 MEQ/L)</content> Chloride 98-107 <content [facility] [Moles/volume] in styleCode="Bold"> Marlene phs Serum or Plasma Chloride Medical </content>103 Center MEQ/L<content styleCode="Italic s"> (98-107 MEQ/L)</content> Aspartate 14-36 <content [facility] aminotransferase styleCode="Bold"> Edward hs [Enzymatic Aspartate Medical activity/volume] Aminotransferase Center in Serum or Plasma (AST) </content>23 IU/L<content styleCode="Italic s"> (14-36 IU/L)</content> Glucose 74-106 Above high <content [facility] [Mass/volume] in normal styleCode="Bold"> Edward hs Serum or Plasma Glucose Medical </content>191 Center MG/DL H<content styleCode="Italic s"> (74-106 MG/DL)</content> Creatinine 0.5-1.3 <content [facility] [Mass/volume] in styleCode="Bold"> Edward hs Serum or Plasma Creatinine Medical </content>1.3 Center MG/DL<content styleCode="Italic s"> (0.5-1.3 MG/DL)</content> Calcium 8.4-10. <content [facility] [Mass/volume] in 2 styleCode="Bold"> Edward hs Serum or Plasma Calcium Medical </content>8.7 Center MG/DL<content styleCode="Italic s"> (8.4-10.2 MG/DL)</content> Alkaline 38-126 Above high <content [facility] phosphatase normal styleCode="Bold"> Agustin [Enzymatic Alkaline Medical activity/volume] Phosphatase (ALP) Cente r in Serum or Plasma </content>151 IU/L H<content styleCode="Italic s"> (38-126 IU/L)</content> Bilirubin.total 0.2-1.3 <content [facility] [Mass/volume] in styleCode="Bold"> Edward hs Serum or Plasma Bilirubin Total Medical </content>0.3 Center MG/DL<content styleCode="Italic s"> (0.2-1.3 MG/DL)</content> Alanine 7-30 Above high <content [facility] aminotransferase normal styleCode="Bold"> Edward hs [Enzymatic Alanine Medical activity/volume] Aminotransferase Center in Serum or Plasma (ALT) </content>36 IU/L H<content styleCode="Italic s"> (7-30 IU/L)</content> Albumin 3.5-5.0 Below low <content [facility] [Mass/volume] in normal styleCode="Bold"> Edward hs Serum or Plasma Albumin Medical </content>3.0 Center G/DL L<content styleCode="Italic s"> (3.5-5.0 G/DL)</content> ID Date Data Source Liver 09/11/2019 06:50:[address] [facility] Profile.[id number] Name Value Range Interpretation Description Data Sup porting Code Source(s) Document(s ) Aspartate 14-36 <content [facility] aminotransferase styleCode="Bold"> Edward hs [Enzymatic Aspartate Medical activity/volume] Aminotransferase Center in Serum or Plasma (AST) </content>32 IU/L<content styleCode="Italic s"> (14-36 IU/L)</content> Alanine 7-30 Above high <content [facility] aminotransferase normal styleCode="Bold"> Edward hs [Enzymatic Alanine Medical activity/volume] Aminotransferase Center in Serum or Plasma (ALT) </content>59 IU/L H<content styleCode="Italic s"> (7-30 IU/L)</content> Alkaline 38-126 Above high <content [facility] phosphatase normal styleCode="Bold"> Agustin [Enzymatic Alkaline Medical activity/volume] Phosphatase (ALP) Cente r in Serum or Plasma </content>135 IU/L H<content styleCode="Italic s"> (38-126 IU/L)</content> Bilirubin.total 0.2-1.3 <content [facility] [Mass/volume] in styleCode="Bold"> Edward hs Serum or Plasma Bilirubin Total Medical </content>0.5 Center MG/DL<content styleCode="Italic s"> (0.2-1.3 MG/DL)</content> Albumin 3.5-5.0 Below low <content [facility] [Mass/volume] in normal styleCode="Bold"> Edward hs Serum or Plasma Albumin Medical </content>3.2 Center G/DL L<content styleCode="Italic s"> (3.5-5.0 G/DL)</content> ID Date Data Source HematologyRou.[id number] 09/11/2019 06:50:00 AM EDT [facility] 0400 Name Value Range Interpretation Description Data Sup porting Code Source(s) Document(s ) Leukocytes 4.4-11.0 <content [facility] [#/volume] in styleCode="Bold Agustin Blood by ">White Blood Medical Automated count Cell Count Center </content>10.13 KCUMM<content styleCode="Ital ics"> (4.4-11.0 KCUMM)</content > Erythrocytes 4.0-5.1 Below low normal <content Saint [#/volume] in styleCode="Bold Agustin Blood by ">Red Blood Medical Automated count Cell Count Center </content>3.23 MCUMM L<content styleCode="Ital ics"> (4.0-5.1 MCUMM)</content > Hemoglobin 12.3-16. Below low normal <content [facility] [Mass/volume] in 0 styleCode="Bold Agustin Blood ">Hemoglobin Medical </content>9.8 Center G/DL L<content styleCode="Ital ics"> (12.3-16.0 G/DL)</content> Hematocrit 36.0-46. Below low normal <content [facility] [Volume 0 styleCode="Bold Agustin Fraction] of ">Hematocrit Medical Blood by </content>30.0 Center Automated count % L<content styleCode="Ital ics"> (36.0-46.0 %)</content> Erythrocyte mean 80.0-100 <content [facility] corpuscular .0 styleCode="Bold Agustin volume [Entitic ">Mean Medical volume] by Corpuscular Center Automated count Volume </content>92.9 FL<content styleCode="Ital ics"> (80.0-100.0 FL)</content> Erythrocyte mean 32.0-37. <content [facility] corpuscular 0 styleCode="Bold Agustin hemoglobin ">Mean Corpus. Medical concentration Hgb Center [Mass/volume] by Concentration Automated count (MCHC) </content>32.7 G/DL<content styleCode="Ital ics"> (32.0-37.0 G/DL)</content> Erythrocyte mean 26.0-34. <content [facility] corpuscular 0 styleCode="Bold Agustin hemoglobin ">Mean Medical [Entitic mass] Corposcular Center by Automated Hemoglobin count </content>30.3 PG<content styleCode="Ital ics"> (26.0-34.0 PG)</content> Platelets 130-400 <content [facility] [#/volume] in styleCode="Bold Agustin Blood by ">Platelet Medical Automated count Count Center </content>132 KCUMM<content styleCode="Ital ics"> (130-400 KCUMM)</content > Erythrocyte 11.5-14. <content [facility] distribution 5 styleCode="Bold Agustin width [Ratio] by ">Red Cell Medical Automated count Distribution Center Width </content>13.0 %<content styleCode="Ital ics"> (11.5-14.5 %)</content> Platelet mean 8.0-11.0 Above high <content [facility] volume [Entitic normal styleCode="Bold Agustin volume] in Blood ">Mean Platelet Medical by Automated Volume Center count </content>11.2 FL H<content styleCode="Ital ics"> (8.0-11.0 FL)</content> UNK 0 Above high <content [facility] normal styleCode="Bold Agustin ">Nucleated Red Medical Blood Cell Center </content>0.2 /100 H<content styleCode="Ital ics"> (0 /100)</content> UNK 0.0 Above high <content [facility] normal styleCode="Bold Agustin ">Nucleated Red Medical Blood Cell Center Count </content>0.02 KCUMM H<content styleCode="Ital ics"> (0.0 KCUMM)</content > ID Date Data Source CHMROUTINECCDA.[id number] 09/11/2019 06:50:00 AM EDT [facility] -0400 Name Value Range Interpretation Description Data Sup porting Code Source(s) Document(s ) UNK >= 1.0 <content Saint styleCode="Shane Agustin d">AG Ratio Medical </content>1.0 Center <content styleCode="Iva lics"> (>= 1.0 )</content> Magnesium 1.6-2.3 <content [facility] [Mass/volume] styleCode="Shane Agustin in Serum or d">Magnesium Medical Plasma </content>1.7 Center MG/DL<content styleCode="Iva lics"> (1.6-2.3 MG/DL)</conten t> UNK 2.3-3.5 <content Saint styleCode="Shane Agustin d">Globulin Medical </content>3.3 Center G/DL<content styleCode="Iva lics"> (2.3-3.5 G/DL)</content > Phosphate 2.5-4.5 <content [facility] [Mass/volume] styleCode="Shane Agustin in Serum or d">Phosphorus Medical Plasma </content>3.1 Center MG/DL<content styleCode="Iva lics"> (2.5-4.5 MG/DL)</conten t> Protein 6.3-8.2 <content [facility] [Mass/volume] styleCode="Shane Agustin in Serum or d">Total Medical Plasma Protein Center </content>6.5 G/DL<content styleCode="Iva lics"> (6.3-8.2 G/DL)</content > ID Date Data Source [facility].[id number] 09/11/2019 06:50:00 AM EDT [facility] Name Value Range Interpretation Description Data Sup porting Code Source(s) Document(s ) Sodium 137-145 <content [facility] [Moles/volume] in styleCode="Bold"> Marlene phs Serum or Plasma Sodium Medical </content>137 Center MEQ/L<content styleCode="Italic s"> (137-145 MEQ/L)</content> Chloride 98-107 <content [facility] [Moles/volume] in styleCode="Bold"> Marlene phs Serum or Plasma Chloride Medical </content>104 Center MEQ/L<content styleCode="Italic s"> (98-107 MEQ/L)</content> Potassium 3.5-5.3 <content [facility] [Moles/volume] in styleCode="Bold"> Marlene phs Serum or Plasma Potassium Medical </content>3.8 Center MEQ/L<content styleCode="Italic s"> (3.5-5.3 MEQ/L)</content> Carbon dioxide, 22-30 <content [facility] total styleCode="Bold"> Agustin [Moles/volume] in Carbon Dioxide Medical Serum or Plasma </content>27 Center MEQ/L<content styleCode="Italic s"> (22-30 MEQ/L)</content> UNK 7-17 Above high <content [facility] normal styleCode="Bold"> Agustin BUN </content>20 Medical MG/DL H<content Center styleCode="Italic s"> (7-17 MG/DL)</content> Glucose 74-106 Above high <content [facility] [Mass/volume] in normal styleCode="Bold"> Edward hs Serum or Plasma Glucose Medical </content>107 Center MG/DL H<content styleCode="Italic s"> (74-106 MG/DL)</content> Creatinine 0.5-1.3 <content [facility] [Mass/volume] in styleCode="Bold"> Edward hs Serum or Plasma Creatinine Medical </content>1.1 Center MG/DL<content styleCode="Italic s"> (0.5-1.3 MG/DL)</content> Alkaline 38-126 Above high <content [facility] phosphatase normal styleCode="Bold"> Agustin [Enzymatic Alkaline Medical activity/volume] Phosphatase (ALP) Cente r in Serum or Plasma </content>135 IU/L H<content styleCode="Italic s"> (38-126 IU/L)</content> Aspartate 14-36 <content [facility] aminotransferase styleCode="Bold"> Edward hs [Enzymatic Aspartate Medical activity/volume] Aminotransferase Center in Serum or Plasma (AST) </content>32 IU/L<content styleCode="Italic s"> (14-36 IU/L)</content> Alanine 7-30 Above high <content [facility] aminotransferase normal styleCode="Bold"> Edward hs [Enzymatic Alanine Medical activity/volume] Aminotransferase Center in Serum or Plasma (ALT) </content>59 IU/L H<content styleCode="Italic s"> (7-30 IU/L)</content> Calcium 8.4-10. <content [facility] [Mass/volume] in 2 styleCode="Bold"> Edward hs Serum or Plasma Calcium Medical </content>8.7 Center MG/DL<content styleCode="Italic s"> (8.4-10.2 MG/DL)</content> Bilirubin.total 0.2-1.3 <content [facility] [Mass/volume] in styleCode="Bold"> Edward hs Serum or Plasma Bilirubin Total Medical </content>0.5 Center MG/DL<content styleCode="Italic s"> (0.2-1.3 MG/DL)</content> Albumin 3.5-5.0 Below low <content [facility] [Mass/volume] in normal styleCode="Bold"> Edward hs Serum or Plasma Albumin Medical </content>3.2 Center G/DL L<content styleCode="Italic s"> (3.5-5.0 G/DL)</content> ID Date Data Source Liver 09/10/2019 06:10:[address] [facility] Profile.[id number] Name Value Range Interpretation Description Data Sup porting Code Source(s) Document(s ) Alanine 7-30 Above high <content [facility] aminotransferase normal styleCode="Bold"> Edawrd hs [Enzymatic Alanine Medical activity/volume] Aminotransferase Center in Serum or Plasma (ALT) </content>68 IU/L H<content styleCode="Italic s"> (7-30 IU/L)</content> Aspartate 14-36 Above high <content [facility] aminotransferase normal styleCode="Bold"> Edward hs [Enzymatic Aspartate Medical activity/volume] Aminotransferase Center in Serum or Plasma (AST) </content>43 IU/L H<content styleCode="Italic s"> (14-36 IU/L)</content> Bilirubin.total 0.2-1.3 <content [facility] [Mass/volume] in styleCode="Bold"> Edward hs Serum or Plasma Bilirubin Total Medical </content>0.5 Center MG/DL<content styleCode="Italic s"> (0.2-1.3 MG/DL)</content> Alkaline 38-126 Above high <content [facility] phosphatase normal styleCode="Bold"> Agustin [Enzymatic Alkaline Medical activity/volume] Phosphatase (ALP) Cente r in Serum or Plasma </content>137 IU/L H<content styleCode="Italic s"> (38-126 IU/L)</content> Albumin 3.5-5.0 Below low <content [facility] [Mass/volume] in normal styleCode="Bold"> Edward hs Serum or Plasma Albumin Medical </content>3.4 Center G/DL L<content styleCode="Italic s"> (3.5-5.0 G/DL)</content> ID Date Data Source HematologyRou.[id number] 09/10/2019 06:10:00 AM EDT [facility] 0400 Name Value Range Interpretation Description Data Sup porting Code Source(s) Document(s ) Hemoglobin 12.3-16. Below low normal <content [facility] [Mass/volume] in 0 styleCode="Bold Agutsin Blood ">Hemoglobin Medical </content>10.4 Center G/DL L<content styleCode="Ital ics"> (12.3-16.0 G/DL)</content> Leukocytes 4.4-11.0 <content Saint [#/volume] in styleCode="Bold Agustin Blood by ">White Blood Medical Automated count Cell Count Center </content>9.24 KCUMM<content styleCode="Ital ics"> (4.4-11.0 KCUMM)</content > Erythrocytes 4.0-5.1 Below low normal <content Saint [#/volume] in styleCode="Bold Agustin Blood by ">Red Blood Medical Automated count Cell Count Center </content>3.42 MCUMM L<content styleCode="Ital ics"> (4.0-5.1 MCUMM)</content > Erythrocyte mean 26.0-34. <content [facility] corpuscular 0 styleCode="Bold Agustin hemoglobin ">Mean Medical [Entitic mass] Corposcular Center by Automated Hemoglobin count </content>30.4 PG<content styleCode="Ital ics"> (26.0-34.0 PG)</content> Hematocrit 36.0-46. Below low normal <content Saint [Volume 0 styleCode="Bold Agustin Fraction] of ">Hematocrit Medical Blood by </content>31.5 Center Automated count % L<content styleCode="Ital ics"> (36.0-46.0 %)</content> Erythrocyte mean 80.0-100 <content [facility] corpuscular .0 styleCode="Bold Agustin volume [Entitic ">Mean Medical volume] by Corpuscular Center Automated count Volume </content>92.1 FL<content styleCode="Ital ics"> (80.0-100.0 FL)</content> Erythrocyte mean 32.0-37. <content [facility] corpuscular 0 styleCode="Bold Agustin hemoglobin ">Mean Corpus. Medical concentration Hgb Center [Mass/volume] by Concentration Automated count (MCHC) </content>33.0 G/DL<content styleCode="Ital ics"> (32.0-37.0 G/DL)</content> Platelets 130-400 Below low normal <content Saint [#/volume] in styleCode="Bold Agustin Blood by ">Platelet Medical Automated count Count Center </content>117 KCUMM L<content styleCode="Ital ics"> (130-400 KCUMM)</content > Erythrocyte 11.5-14. <content [facility] distribution 5 styleCode="Bold Agustin width [Ratio] by ">Red Cell Medical Automated count Distribution Center Width </content>13.0 %<content styleCode="Ital ics"> (11.5-14.5 %)</content> UNK 0.0 <content Saint styleCode="Bold Agustin ">Nucleated Red Medical Blood Cell Center Count </content>0.00 KCUMM<content styleCode="Ital ics"> (0.0 KCUMM)</content > UNK 0 <content Saint styleCode="Bold Agustin ">Nucleated Red Medical Blood Cell Center </content>0.0 /100<content styleCode="Ital ics"> (0 /100)</content> Platelet mean 8.0-11.0 Above high <content Saint volume [Entitic normal styleCode="Bold Agutsin volume] in Blood ">Mean Platelet Medical by Automated Volume Center count </content>11.2 FL H<content styleCode="Ital ics"> (8.0-11.0 FL)</content> ID Date Data Source CHMROUTINECCDA.[id number] 09/10/2019 06:10:00 AM EDT [facility] -0400 Name Value Range Interpretation Description Data Sup porting Code Source(s) Document(s ) UNK >= 1.0 <content Saint styleCode="Shane Agustin d">AG Ratio Medical </content>1.1 Center <content styleCode="Iva lics"> (>= 1.0 )</content> Phosphate 2.5-4.5 <content Saint [Mass/volume] styleCode="Shane Agustin in Serum or d">Phosphorus Medical Plasma </content>2.6 Center MG/DL<content styleCode="Iva lics"> (2.5-4.5 MG/DL)</conten t> UNK 2.3-3.5 <content Saint styleCode="Shane Agustin d">Globulin Medical </content>3.2 Center G/DL<content styleCode="Iva lics"> (2.3-3.5 G/DL)</content > Magnesium 1.6-2.3 <content [facility] [Mass/volume] styleCode="Shane Agustin in Serum or d">Magnesium Medical Plasma </content>1.9 Center MG/DL<content styleCode="Iva lics"> (1.6-2.3 MG/DL)</conten t> Protein 6.3-8.2 <content [facility] [Mass/volume] styleCode="Shane Agustin in Serum or d">Total Medical Plasma Protein Center </content>6.6 G/DL<content styleCode="Iva lics"> (6.3-8.2 G/DL)</content > ID Date Data Source [facility].[id number] 09/10/2019 06:10:00 AM EDT [facility] Name Value Range Interpretation Description Data Sup porting Code Source(s) Document(s ) Sodium 137-145 Below low <content Saint [Moles/volume] in normal styleCode="Bold"> [facility] Serum or Plasma Sodium Medical </content>136 Center MEQ/L L<content styleCode="Italic s"> (137-145 MEQ/L)</content> Potassium 3.5-5.3 <content Saint [Moles/volume] in styleCode="Bold"> [facility] Serum or Plasma Potassium Medical </content>3.9 Center MEQ/L<content styleCode="Italic s"> (3.5-5.3 MEQ/L)</content> Carbon dioxide, 22-30 <content Saint total styleCode="Bold"> Agustin [Moles/volume] in Carbon Dioxide Medical Serum or Plasma </content>27 Center MEQ/L<content styleCode="Italic s"> (22-30 MEQ/L)</content> Chloride 98-107 <content Saint [Moles/volume] in styleCode="Bold"> Marlene phs Serum or Plasma Chloride Medical </content>104 Center MEQ/L<content styleCode="Italic s"> (98-107 MEQ/L)</content> Glucose 74-106 Above high <content Saint [Mass/volume] in normal styleCode="Bold"> Edward hs Serum or Plasma Glucose Medical </content>227 Center MG/DL H<content styleCode="Italic s"> (74-106 MG/DL)</content> UNK 7-17 Above high <content Saint normal styleCode="Bold"> Agustin BUN </content>21 Medical MG/DL H<content Center styleCode="Italic s"> (7-17 MG/DL)</content> Aspartate 14-36 Above high <content Saint aminotransferase normal styleCode="Bold"> Edward hs [Enzymatic Aspartate Medical activity/volume] Aminotransferase Center in Serum or Plasma (AST) </content>43 IU/L H<content styleCode="Italic s"> (14-36 IU/L)</content> Alanine 7-30 Above high <content [facility] aminotransferase normal styleCode="Bold"> Edward hs [Enzymatic Alanine Medical activity/volume] Aminotransferase Center in Serum or Plasma (ALT) </content>68 IU/L H<content styleCode="Italic s"> (7-30 IU/L)</content> Calcium 8.4-10. <content [facility] [Mass/volume] in 2 styleCode="Bold"> Edward hs Serum or Plasma Calcium Medical </content>8.5 Center MG/DL<content styleCode="Italic s"> (8.4-10.2 MG/DL)</content> Albumin 3.5-5.0 Below low <content [facility] [Mass/volume] in normal styleCode="Bold"> Edward hs Serum or Plasma Albumin Medical </content>3.4 Center G/DL L<content styleCode="Italic s"> (3.5-5.0 G/DL)</content> Alkaline 38-126 Above high <content [facility] phosphatase normal styleCode="Bold"> Agustin [Enzymatic Alkaline Medical activity/volume] Phosphatase (ALP) Cente r in Serum or Plasma </content>137 IU/L H<content styleCode="Italic s"> (38-126 IU/L)</content> Bilirubin.total 0.2-1.3 <content [facility] [Mass/volume] in styleCode="Bold"> Edward hs Serum or Plasma Bilirubin Total Medical </content>0.5 Center MG/DL<content styleCode="Italic s"> (0.2-1.3 MG/DL)</content> ID Date Data Source Liver 09/09/2019 06:38:[address] [facility] Profile.[id number] Name Value Range Interpretation Description Data Sup porting Code Source(s) Document(s ) Aspartate 14-36 Above high <content [facility] aminotransferase normal styleCode="Bold"> Edward hs [Enzymatic Aspartate Medical activity/volume] Aminotransferase Center in Serum or Plasma (AST) </content>44 IU/L H<content styleCode="Italic s"> (14-36 IU/L)</content> Alanine 7-30 Above high <content [facility] aminotransferase normal styleCode="Bold"> Edward hs [Enzymatic Alanine Medical activity/volume] Aminotransferase Center in Serum or Plasma (ALT) </content>72 IU/L H<content styleCode="Italic s"> (7-30 IU/L)</content> Alkaline 38-126 <content [facility] phosphatase styleCode="Bold"> Agustin [Enzymatic Alkaline Medical activity/volume] Phosphatase (ALP) Cente r in Serum or Plasma </content>126 IU/L<content styleCode="Italic s"> (38-126 IU/L)</content> Bilirubin.total 0.2-1.3 <content [facility] [Mass/volume] in styleCode="Bold"> Edward hs Serum or Plasma Bilirubin Total Medical </content>0.5 Center MG/DL<content styleCode="Italic s"> (0.2-1.3 MG/DL)</content> Albumin 3.5-5.0 Below low <content [facility] [Mass/volume] in normal styleCode="Bold"> Edward hs Serum or Plasma Albumin Medical </content>3.4 Center G/DL L<content styleCode="Italic s"> (3.5-5.0 G/DL)</content> ID Date Data Source HematologyRou.[id number] 09/09/2019 06:38:00 AM EDT [facility] 0400 Name Value Range Interpretation Description Data Sup porting Code Source(s) Document(s ) Hemoglobin 12.3-16. Below low normal <content Saint [Mass/volume] in 0 styleCode="Bold Agustin Blood ">Hemoglobin Medical </content>10.7 Center G/DL L<content styleCode="Ital ics"> (12.3-16.0 G/DL)</content> Erythrocytes 4.0-5.1 Below low normal <content Saint [#/volume] in styleCode="Bold Agustin Blood by ">Red Blood Medical Automated count Cell Count Center </content>3.48 MCUMM L<content styleCode="Ital ics"> (4.0-5.1 MCUMM)</content > Leukocytes 4.4-11.0 <content Saint [#/volume] in styleCode="Bold Agustin Blood by ">White Blood Medical Automated count Cell Count Center </content>8.57 KCUMM<content styleCode="Ital ics"> (4.4-11.0 KCUMM)</content > Erythrocyte mean 80.0-100 <content [facility] corpuscular .0 styleCode="Bold Agustin volume [Entitic ">Mean Medical volume] by Corpuscular Center Automated count Volume </content>91.7 FL<content styleCode="Ital ics"> (80.0-100.0 FL)</content> Hematocrit 36.0-46. Below low normal <content Saint [Volume 0 styleCode="Bold Agustin Fraction] of ">Hematocrit Medical Blood by </content>31.9 Center Automated count % L<content styleCode="Ital ics"> (36.0-46.0 %)</content> Erythrocyte mean 26.0-34. <content [facility] corpuscular 0 styleCode="Bold Agustin hemoglobin ">Mean Medical [Entitic mass] Corposcular Center by Automated Hemoglobin count </content>30.7 PG<content styleCode="Ital ics"> (26.0-34.0 PG)</content> Erythrocyte 11.5-14. <content [facility] distribution 5 styleCode="Bold Agustin width [Ratio] by ">Red Cell Medical Automated count Distribution Center Width </content>13.0 %<content styleCode="Ital ics"> (11.5-14.5 %)</content> Erythrocyte mean 32.0-37. <content [facility] corpuscular 0 styleCode="Bold Agustin hemoglobin ">Mean Corpus. Medical concentration Hgb Center [Mass/volume] by Concentration Automated count (MCHC) </content>33.5 G/DL<content styleCode="Ital ics"> (32.0-37.0 G/DL)</content> Platelet mean 8.0-11.0 Above high <content Saint volume [Entitic normal styleCode="Bold Agustin volume] in Blood ">Mean Platelet Medical by Automated Volume Center count </content>11.1 FL H<content styleCode="Ital ics"> (8.0-11.0 FL)</content> Platelets 130-400 Below low normal <content Saint [#/volume] in styleCode="Bold Agustin Blood by ">Platelet Medical Automated count Count Center </content>108 KCUMM L<content styleCode="Ital ics"> (130-400 KCUMM)</content > UNK 0 <content Saint styleCode="Bold Agustin ">Nucleated Red Medical Blood Cell Center </content>0.0 /100<content styleCode="Ital ics"> (0 /100)</content> UNK 0.0 <content Saint styleCode="Bold Agustin ">Nucleated Red Medical Blood Cell Center Count </content>0.00 KCUMM<content styleCode="Ital ics"> (0.0 KCUMM)</content > ID Date Data Source CHMROUTINECCDA.[id number] 09/09/2019 06:38:00 AM EDT [facility] -0400 Name Value Range Interpretation Description Data Sup porting Code Source(s) Document(s ) UNK >= 1.0 <content Saint styleCode="Shane Agustin d">AG Ratio Medical </content>1.0 Center <content styleCode="Iva lics"> (>= 1.0 )</content> UNK 2.3-3.5 <content Saint styleCode="Shane Agustin d">Globulin Medical </content>3.3 Center G/DL<content styleCode="Iva lics"> (2.3-3.5 G/DL)</content > Phosphate 2.5-4.5 <content Saint [Mass/volume] styleCode="Shane Agustin in Serum or d">Phosphorus Medical Plasma </content>2.7 Center MG/DL<content styleCode="Iva lics"> (2.5-4.5 MG/DL)</conten t> Magnesium 1.6-2.3 <content Saint [Mass/volume] styleCode="Shane Agustin in Serum or d">Magnesium Medical Plasma </content>1.9 Center MG/DL<content styleCode="Iva lics"> (1.6-2.3 MG/DL)</conten t> Protein 6.3-8.2 <content [facility] [Mass/volume] styleCode="Shane Agustin in Serum or d">Total Medical Plasma Protein Center </content>6.7 G/DL<content styleCode="Iva lics"> (6.3-8.2 G/DL)</content > ID Date Data Source [facility].[id number] 09/09/2019 06:38:00 AM EDT [facility] Name Value Range Interpretation Description Data Sup porting Code Source(s) Document(s ) Sodium 137-145 Below low <content Saint [Moles/volume] in normal styleCode="Bold"> Marlene phs Serum or Plasma Sodium Medical </content>135 Center MEQ/L L<content styleCode="Italic s"> (137-145 MEQ/L)</content> Potassium 3.5-5.3 <content [facility] [Moles/volume] in styleCode="Bold"> Marlene phs Serum or Plasma Potassium Medical </content>4.1 Center MEQ/L<content styleCode="Italic s"> (3.5-5.3 MEQ/L)</content> Carbon dioxide, 22-30 <content [facility] total styleCode="Bold"> Agustin [Moles/volume] in Carbon Dioxide Medical Serum or Plasma </content>26 Center MEQ/L<content styleCode="Italic s"> (22-30 MEQ/L)</content> Chloride 98-107 <content [facility] [Moles/volume] in styleCode="Bold"> Marlene phs Serum or Plasma Chloride Medical </content>101 Center MEQ/L<content styleCode="Italic s"> (98-107 MEQ/L)</content> Glucose 74-106 Above high <content [facility] [Mass/volume] in normal styleCode="Bold"> Edward hs Serum or Plasma Glucose Medical </content>238 Center MG/DL H<content styleCode="Italic s"> (74-106 MG/DL)</content> Creatinine 0.5-1.3 <content [facility] [Mass/volume] in styleCode="Bold"> Edward hs Serum or Plasma Creatinine Medical </content>1.2 Center MG/DL<content styleCode="Italic s"> (0.5-1.3 MG/DL)</content> Calcium 8.4-10. <content [facility] [Mass/volume] in 2 styleCode="Bold"> Edward hs Serum or Plasma Calcium Medical </content>8.4 Center MG/DL<content styleCode="Italic s"> (8.4-10.2 MG/DL)</content> UNK 7-17 Above high <content [facility] normal styleCode="Bold"> Agustin BUN </content>22 Medical MG/DL H<content Center styleCode="Italic s"> (7-17 MG/DL)</content> Alanine 7-30 Above high <content [facility] aminotransferase normal styleCode="Bold"> Edward hs [Enzymatic Alanine Medical activity/volume] Aminotransferase Center in Serum or Plasma (ALT) </content>72 IU/L H<content styleCode="Italic s"> (7-30 IU/L)</content> Aspartate 14-36 Above high <content [facility] aminotransferase normal styleCode="Bold"> Edward hs [Enzymatic Aspartate Medical activity/volume] Aminotransferase Center in Serum or Plasma (AST) </content>44 IU/L H<content styleCode="Italic s"> (14-36 IU/L)</content> Alkaline 38-126 <content [facility] phosphatase styleCode="Bold"> Agustin [Enzymatic Alkaline Medical activity/volume] Phosphatase (ALP) Cente r in Serum or Plasma </content>126 IU/L<content styleCode="Italic s"> (38-126 IU/L)</content> Bilirubin.total 0.2-1.3 <content [facility] [Mass/volume] in styleCode="Bold"> Edward hs Serum or Plasma Bilirubin Total Medical </content>0.5 Center MG/DL<content styleCode="Italic s"> (0.2-1.3 MG/DL)</content> Albumin 3.5-5.0 Below low <content [facility] [Mass/volume] in normal styleCode="Bold"> Edward hs Serum or Plasma Albumin Medical </content>3.4 Center G/DL L<content styleCode="Italic s"> (3.5-5.0 G/DL)</content> ID Date Data Source Liver 09/08/2019 06:03:[address] [facility] Profile.[id number] Name Value Range Interpretation Description Data Sup porting Code Source(s) Document(s ) Aspartate 14-36 <content [facility] aminotransferase styleCode="Bold"> Edward hs [Enzymatic Aspartate Medical activity/volume] Aminotransferase Center in Serum or Plasma (AST) </content>31 IU/L<content styleCode="Italic s"> (14-36 IU/L)</content> Alanine 7-30 Above high <content [facility] aminotransferase normal styleCode="Bold"> Edward hs [Enzymatic Alanine Medical activity/volume] Aminotransferase Center in Serum or Plasma (ALT) </content>62 IU/L H<content styleCode="Italic s"> (7-30 IU/L)</content> Alkaline 38-126 <content [facility] phosphatase styleCode="Bold"> Agustin [Enzymatic Alkaline Medical activity/volume] Phosphatase (ALP) Cente r in Serum or Plasma </content>88 IU/L<content styleCode="Italic s"> (38-126 IU/L)</content> Bilirubin.total 0.2-1.3 <content [facility] [Mass/volume] in styleCode="Bold"> Edward hs Serum or Plasma Bilirubin Total Medical </content>0.5 Center MG/DL<content styleCode="Italic s"> (0.2-1.3 MG/DL)</content> Albumin 3.5-5.0 Below low <content [facility] [Mass/volume] in normal styleCode="Bold"> Edward hs Serum or Plasma Albumin Medical </content>3.0 Center G/DL L<content styleCode="Italic s"> (3.5-5.0 G/DL)</content> ID Date Data Source HematologyRou.[id number] 09/08/2019 06:03:00 AM EDT [facility] 0400 Name Value Range Interpretation Description Data Sup porting Code Source(s) Document(s ) Leukocytes 4.4-11.0 <content [facility] [#/volume] in styleCode="Bold Agustin Blood by ">White Blood Medical Automated count Cell Count Center </content>8.21 KCUMM<content styleCode="Ital ics"> (4.4-11.0 KCUMM)</content > Hemoglobin 12.3-16. Below low normal <content [facility] [Mass/volume] in 0 styleCode="Bold Agustin Blood ">Hemoglobin Medical </content>10.0 Center G/DL L<content styleCode="Ital ics"> (12.3-16.0 G/DL)</content> Hematocrit 36.0-46. Below low normal <content Saint [Volume 0 styleCode="Bold [facility] Fraction] of ">Hematocrit Medical Blood by </content>30.1 Center Automated count % L<content styleCode="Ital ics"> (36.0-46.0 %)</content> Erythrocytes 4.0-5.1 Below low normal <content Saint [#/volume] in styleCode="Bold Agustin Blood by ">Red Blood Medical Automated count Cell Count Center </content>3.27 MCUMM L<content styleCode="Ital ics"> (4.0-5.1 MCUMM)</content > Erythrocyte mean 26.0-34. <content [facility] corpuscular 0 styleCode="Bold Agustin hemoglobin ">Mean Medical [Entitic mass] Corposcular Center by Automated Hemoglobin count </content>30.6 PG<content styleCode="Ital ics"> (26.0-34.0 PG)</content> Erythrocyte mean 80.0-100 <content [facility] corpuscular .0 styleCode="Bold Agustin volume [Entitic ">Mean Medical volume] by Corpuscular Center Automated count Volume </content>92.0 FL<content styleCode="Ital ics"> (80.0-100.0 FL)</content> Erythrocyte mean 32.0-37. <content [facility] corpuscular 0 styleCode="Bold Agustin hemoglobin ">Mean Corpus. Medical concentration Hgb Center [Mass/volume] by Concentration Automated count (MCHC) </content>33.2 G/DL<content styleCode="Ital ics"> (32.0-37.0 G/DL)</content> Platelets 130-400 Below low normal <content Saint [#/volume] in styleCode="Bold Agustin Blood by ">Platelet Medical Automated count Count Center </content>99 KCUMM L<content styleCode="Ital ics"> (130-400 KCUMM)</content > Erythrocyte 11.5-14. <content [facility] distribution 5 styleCode="Bold Agustin width [Ratio] by ">Red Cell Medical Automated count Distribution Center Width </content>13.0 %<content styleCode="Ital ics"> (11.5-14.5 %)</content> Platelet mean 8.0-11.0 <content Saint volume [Entitic styleCode="Bold Agustin volume] in Blood ">Mean Platelet Medical by Automated Volume Center count </content>10.8 FL<content styleCode="Ital ics"> (8.0-11.0 FL)</content> UNK 1.6-7.3 <content Saint styleCode="Bold Agustin ">Neutrophil Medical Count Center </content>5.36 KCUMM<content styleCode="Ital ics"> (1.6-7.3 KCUMM)</content > Lymphocytes 24.0-44. Below low normal <content Saint [#/volume] in 0 styleCode="Bold Agustin Blood by ">Lymphocyte Medical Automated count </content>21.6 Center % L<content styleCode="Ital ics"> (24.0-44.0 %)</content> Neutrophils 36-66 <content Saint [#/volume] in styleCode="Bold Agustin Blood by ">Neutrophil Medical Automated count </content>65.3 Center %<content styleCode="Ital ics"> (36-66 %)</content> UNK 1.0-4.8 <content Saint styleCode="Bold Agustin ">Lymphocyte Medical Count Center </content>1.77 KCUMM<content styleCode="Ital ics"> (1.0-4.8 KCUMM)</content > Monocytes 3.0-10.0 Above high <content Saint [#/volume] in normal styleCode="Bold Agustin Blood by ">Monocyte Medical Automated count </content>11.2 Center % H<content styleCode="Ital ics"> (3.0-10.0 %)</content> Eosinophils 0-5.0 <content Saint [#/volume] in styleCode="Bold Agustin Blood by ">Eosinophil Medical Automated count </content>1.3 Center %<content styleCode="Ital ics"> (0-5.0 %)</content> UNK 0.2-0.9 Above high <content Saint normal styleCode="Bold Agustin ">Monocyte Medical Count Center </content>0.92 KCUMM H<content styleCode="Ital ics"> (0.2-0.9 KCUMM)</content > UNK 0.0-0.6 <content Saint styleCode="Bold Agustin ">Eosinophil Medical Count Center </content>0.11 KCUMM<content styleCode="Ital ics"> (0.0-0.6 KCUMM)</content > UNK 0 <content Saint styleCode="Bold Agustin ">Nucleated Red Medical Blood Cell Center </content>0.0 /100<content styleCode="Ital ics"> (0 /100)</content> Basophils 0.0-1.0 <content Saint [#/volume] in styleCode="Bold Agustin Blood by ">Basophil Medical Automated count </content>0.2 Center %<content styleCode="Ital ics"> (0.0-1.0 %)</content> UNK 0.0-0.3 <content Saint styleCode="Bold Agustin ">Basophil Medical Count Center </content>0.02 KCUMM<content styleCode="Ital ics"> (0.0-0.3 KCUMM)</content > UNK 0-0.1 <content Saint styleCode="Bold Agustin ">Immature Medical Granulocyte Center Count </content>0.03 KCUMM<content styleCode="Ital ics"> (0-0.1 KCUMM)</content > UNK < 1 <content Saint styleCode="Bold Agustin ">Immature Medical Granulocyte Center Ratio </content>0.4 %<content styleCode="Ital ics"> (< 1 %)</content> UNK 0.0 <content Saint styleCode="Bold Agustin ">Nucleated Red Medical Blood Cell Center Count </content>0.00 KCUMM<content styleCode="Ital ics"> (0.0 KCUMM)</content > UNK 1.6-4.9 <content Saint styleCode="Bold Agustin ">Immature Medical Platelet Center Fraction </content>4.3 %<content styleCode="Ital ics"> (1.6-4.9 %)</content> ID Date Data Source Coagulation 09/08/2019 06:03:00 AM [facility] Rout.[id number] EDT Name Value Range Interpretation Description Data Sup porting Code Source(s) Document(s ) UNK 9.0-13.0 <content Saint styleCode="Bold" Agustin >Protime Medical </content>11.9 Center SEC<content styleCode="Itali cs"> (9.0-13.0 SEC)</content> INR in 0.80-1.2 <content Saint Platelet poor 0 styleCode="Bold" [facility] plasma by >INR Medical Coagulation </content>1.07 Center assay #<content styleCode="Itali cs"> (0.80-1.20 #)</content> aPTT in 25.1-36. <content Saint Platelet poor 5 styleCode="Bold" [facility] plasma by >Partial Medical Coagulation Thromboplastin Center assay Time </content>29.8 SEC<content styleCode="Itali cs"> (25.1-36.5 SEC)</content> ID Date Data Source CHMROUTINECCDA.[id number] 09/08/2019 06:03:00 AM EDT [facility] -0400 Name Value Range Interpretation Description Data Sup porting Code Source(s) Document(s ) UNK >= 1.0 <content Saint styleCode="Shane Maganas d">AG Ratio Medical </content>1.0 Center <content styleCode="Iva lics"> (>= 1.0 )</content> UNK 2.3-3.5 <content Saint styleCode="Shane Maganas d">Globulin Medical </content>3.0 Center G/DL<content styleCode="Iva lics"> (2.3-3.5 G/DL)</content > Magnesium 1.6-2.3 <content Saint [Mass/volume] styleCode="Shane Maganas in Serum or d">Magnesium Medical Plasma </content>1.8 Center MG/DL<content styleCode="Iva lics"> (1.6-2.3 MG/DL)</conten t> Protein 6.3-8.2 Below low normal <content [facility] [Mass/volume] styleCode="Shane Maganas in Serum or d">Total Medical Plasma Protein Center </content>6.0 G/DL L<content styleCode="Iva lics"> (6.3-8.2 G/DL)</content > Phosphate 2.5-4.5 <content [facility] [Mass/volume] styleCode="Shane Maganas in Serum or d">Phosphorus Medical Plasma </content>2.5 Center MG/DL<content styleCode="Iva lics"> (2.5-4.5 MG/DL)</conten t> ID Date Data Source Urinalysis.[id number] 09/07/2019 09:15:00 AM EDT [facility] 0 Name Value Range Interpretation Description Data Sup porting Code Source(s) Document(s ) Color of Urine YELLOW <content Saint styleCode="Shane Maganas d">Color, Medical Urine Center </content>YELL OW <content styleCode="Iva lics"> (YELLOW )</content> UNK CLEAR <content Saint styleCode="Shane Maganas d">Urine Medical Clarity Center </content>GEENA R <content styleCode="Iva lics"> (CLEAR )</content> Glucose NEGATIVE <content [facility] [Mass/volume] styleCode="Shane Maganas in Urine by d">Urine Medical Test strip Glucose Center </content>>=10 00 MG/DL<content styleCode="Iva lics"> (NEGATIVE MG/DL)</conten t> UNK NEGATIVE <content Saint styleCode="Shane Maganas d">Urine Medical Bilirubin Center </content>NEGA TIVE <content styleCode="Iva lics"> (NEGATIVE )</content> Ketones NEGATIVE <content [facility] [Mass/volume] styleCode="Shane Maganas in Urine by d">Urine Medical Test strip Ketone Center </content>NEGA TIVE MG/DL<content styleCode="Iva lics"> (NEGATIVE MG/DL)</conten t> Specific 1.015-1.02 <content [facility] gravity of 5 styleCode="Shane Maganas Urine by Test d">Urine Medical strip Specific Center [place] </content>1.01 5 <content styleCode="Iva lics"> (1.015-1.025 )</content> Hemoglobin NEGATIVE <content Saint [Presence] in styleCode="Shane Maganas Urine by Test d">Urine Blood Medical strip </content>SMAL Center L <content styleCode="Iva lics"> (NEGATIVE )</content> Protein NEGATIVE <content [facility] [Mass/volume] styleCode="Shane Maganas in Urine by d">Urine Medical Test strip Protein Center </content>100 MG/DL<content styleCode="Iva lics"> (NEGATIVE MG/DL)</conten t> pH of Urine by 4.5-8.0 <content Saint Test strip styleCode="Shane Agustin d">Urine pH Medical </content>6.0 Center <content styleCode="Iva lics"> (4.5-8.0 )</content> Urobilinogen 0.2-1.0 <content Saint [Units/volume] styleCode="Shane Agustin in Urine by d">Urine Medical Test strip Urobilinogen Center </content>1.0 MG/DL<content styleCode="Iva lics"> (0.2-1.0 MG/DL)</conten t> Leukocyte NEGATIVE <content Saint esterase styleCode="Shane Maganas [Presence] in d">Urine Medical Urine by Test Leukocyte Center strip </content>TRAC E <content styleCode="Iva lics"> (NEGATIVE )</content> Nitrite NEGATIVE <content Saint [Presence] in styleCode="Shane Maganas Urine by Test d">Urine Medical strip Nitrite Center </content>POSI TIVE <content styleCode="Iva lics"> (NEGATIVE )</content> UNK 0-3 <content Saint styleCode="Shane Agustin d">Urine Red Medical Blood Cell Center </content>5 - 10 HPF<content styleCode="Iva lics"> (0-3 HPF)</content> UNK 0-3 <content Saint styleCode="Shane Agustin d">Urine White Medical Blood Cell Center </content>>200 HPF<content styleCode="Iva lics"> (0-3 HPF)</content> UNK NONE SEEN <content Saint styleCode="Shane Agustin d">Epithelial Medical Cell Center </content>10 - 20 HPF<content styleCode="Iva lics"> (NONE SEEN HPF)</content> UNK NEGATIVE <content Saint styleCode="Shane Agustin d">Urine Medical Bacteria Center </content>MANY HPF<content styleCode="Iva lics"> (NEGATIVE HPF)</content> UNK NONE SEEN <content Saint styleCode="Shane Agustin d">White Blood Medical Cell Cast Center </content>5 - 10 LPF<content styleCode="Iva lics"> (NONE SEEN LPF)</content> ID Date Data Source GFR(Creatinine).[id number] 09/07/2019 06:10:00 AM EDT [facility] 0-0400 Name Value Range Interpretation Code Description Data Adelita rce(s) Supporting Document(s ) UNK > 60 <content [facility] styleCode="Bold"> Medical Cent er EGFR </content>66 GFR<content styleCode="Italic s"> (> 60 GFR)</content> ID Date Data Source Coagulation 09/07/2019 06:10:00 AM [facility] Rout.[id number] EDT Name Value Range Interpretation Code Description Data Adelita rce(s) Supporting Document(s ) UNK < 500 Above upper panic <content [facility] [place] [facility] limits styleCode="Bold"> Medical Cent er D-Dimer </content><conten t styleCode="Bold"> 813 ngFEU HH</content><cont ent styleCode="Italic s"> (< 500 ngFEU)</content> ID Date Data Source GFR(Creatinine).[id number] 09/06/2019 10:50:00 PM EDT [facility] 0-0400 Name Value Range Interpretation Code Description Data Adelita rce(s) Supporting Document(s ) UNK > 60 Below low normal <content [facility] styleCode="Bold"> Medical Cent er EGFR </content>58 GFR L<content styleCode="Italic s"> (> 60 GFR)</content> ID Date Data Source GFR(Creatinine).[id number] 09/06/2019 06:15:00 PM EDT [facility] 0-0400 Name Value Range Interpretation Code Description Data Adelita rce(s) Supporting Document(s ) UNK > 60 Below low normal <content [facility] styleCode="Bold"> Medical Cent er EGFR </content>58 GFR L<content styleCode="Italic s"> (> 60 GFR)</content> ID Date Data Source [facility].[id number] 09/06/2019 06:15:00 PM EDT [facility] Name Value Range Interpretation Description Data Sup porting Code Source(s) Document(s ) Potassium 3.5-5.3 <content [facility] [Moles/volume] styleCode="Shane Agustin in Serum or d">Potassium Medical Plasma </content>4.5 Center MEQ/L<content styleCode="Iva lics"> (3.5-5.3 MEQ/L)</conten t> Sodium 137-145 Below low normal <content [facility] [Moles/volume] styleCode="Shane Agustin in Serum or d">Sodium Medical Plasma </content>132 Center MEQ/L L<content styleCode="Iva lics"> (137-145 MEQ/L)</conten t> Creatinine 0.5-1.3 <content [facility] [Mass/volume] styleCode="Shane Agustin in Serum or d">Creatinine Medical Plasma </content>1.0 Center MG/DL<content styleCode="Iva lics"> (0.5-1.3 MG/DL)</conten t> Chloride 98-107 Below low normal <content [facility] [Moles/volume] styleCode="Shane Agustin in Serum or d">Chloride Medical Plasma </content>96 Center MEQ/L L<content styleCode="Iva lics"> (98-107 MEQ/L)</conten t> UNK 7-17 Above high normal <content Saint styleCode="Shane Agustin d">BUN Medical </content>23 Center MG/DL H<content styleCode="Iva lics"> (7-17 MG/DL)</conten t> Carbon 22-30 <content [facility] dioxide, total styleCode="Shane Agustin [Moles/volume] d">Carbon Medical in Serum or Dioxide Center Plasma </content>30 MEQ/L<content styleCode="Iva lics"> (22-30 MEQ/L)</conten t> Calcium 8.4-10.2 <content [facility] [Mass/volume] styleCode="Shane Maganas in Serum or d">Calcium Medical Plasma </content>8.9 Center MG/DL<content styleCode="Iva lics"> (8.4-10.2 MG/DL)</conten t> Glucose 74-106 Above high normal <content [facility] [Mass/volume] styleCode="Shane Agustin in Serum or d">Glucose Medical Plasma </content>298 Center MG/DL H<content styleCode="Iva lics"> (74-106 MG/DL)</conten t> UNK > 60 Below low normal <content Saint styleCode="Shane Agustin d">EGFR Medical </content>58 Center GFR L<content styleCode="Iva lics"> (> 60 GFR)</content> ID Date Data Source GFR(Creatinine).[id number] 09/06/2019 01:55:00 PM EDT [facility] 0-0400 Name Value Range Interpretation Code Description Data Adelita rce(s) Supporting Document(s ) UNK > 60 Below low normal <content [facility] styleCode="Bold"> Medical Cent er EGFR </content>58 GFR L<content styleCode="Italic s"> (> 60 GFR)</content> ID Date Data Source Coagulation 09/06/2019 01:55:00 PM [facility] Rout.[id number] EDT Name Value Range Interpretation Code Description Data Adelita rce(s) Supporting Document(s ) UNK < 500 Above upper panic <content [facility] limits styleCode="Bold"> Medical Cent er D-Dimer </content><conten t styleCode="Bold"> 1286 ngFEU HH</content><cont ent styleCode="Italic s"> (< 500 ngFEU)</content> ID Date Data Source BMP.[id number] 09/06/2019 01:55:00 PM EDT [facility] Name Value Range Interpretation Description Data Sup porting Code Source(s) Document(s ) Sodium 137-145 Below low normal <content [facility] [Moles/volume] styleCode="Shane Maganas in Serum or d">Sodium Medical Plasma </content>129 Center MEQ/L L<content styleCode="Iva lics"> (137-145 MEQ/L)</conten t> Potassium 3.5-5.3 <content [facility] [Moles/volume] styleCode="Shane Agustin in Serum or d">Potassium Medical Plasma </content>4.6 Center MEQ/L<content styleCode="Iva lics"> (3.5-5.3 MEQ/L)</conten t> UNK 7-17 Above high normal <content Saint styleCode="Shane Agustin d">BUN Medical </content>25 Center MG/DL H<content styleCode="Iva lics"> (7-17 MG/DL)</conten t> Chloride 98-107 Below low normal <content [facility] [Moles/volume] styleCode="Shane Agustin in Serum or d">Chloride Medical Plasma </content>92 Center MEQ/L L<content styleCode="Iva lics"> (98-107 MEQ/L)</conten t> Creatinine 0.5-1.3 <content [facility] [Mass/volume] styleCode="Shane Agustin in Serum or d">Creatinine Medical Plasma </content>1.0 Center MG/DL<content styleCode="Iva lics"> (0.5-1.3 MG/DL)</conten t> Carbon 22-30 <content [facility] dioxide, total styleCode="Shane Maganas [Moles/volume] d">Carbon Medical in Serum or Dioxide Center Plasma </content>28 MEQ/L<content styleCode="Iva lics"> (22-30 MEQ/L)</conten t> Calcium 8.4-10.2 <content [facility] [Mass/volume] styleCode="Shane Agustin in Serum or d">Calcium Medical Plasma </content>9.0 Center MG/DL<content styleCode="Iva lics"> (8.4-10.2 MG/DL)</conten t> UNK > 60 Below low normal <content Saint styleCode="Shane Agustin d">EGFR Medical </content>58 Center GFR L<content styleCode="Iva lics"> (> 60 GFR)</content> Glucose 74-106 Above upper panic <content Saint [Mass/volume] limits styleCode="Shane Agustin in Serum or d">Glucose Medical Plasma </content><con Center tent styleCode="Shane d">459 MG/DL HH</content><c ontent styleCode="Iva lics"> (74-106 MG/DL)</conten t> ID Date Data Source GFR(Creatinine).[id number] 09/06/2019 01:10:00 PM EDT [facility] 0-0400 Name Value Range Interpretation Code Description Data Adelita rce(s) Supporting Document(s ) UNK <content [facility] styleCode="Bold"> Medical Cent er EGFR </content>Test not performed. GFR (Reference Range: not available)
ID Date Data Source CHMROUTINECCDA.[id number] 09/06/2019 01:10:00 PM EDT [facility] -0400 Name Value Range Interpretation Description Data Sup porting Code Source(s) Document(s ) Lactate 0.7-2.0 <content [facility] [Mass/volum styleCode="Bold Medical e] in Serum ">Lactic Acid Center or Plasma </content>1.5 MMOLL<content styleCode="Ital ics"> (0.7-2.0 MMOLL)</content > ID Date Data Source [facility].[id number] 09/06/2019 01:10:00 PM EDT [facility] Name Value Range Interpretation Description Data Sup porting Code Source(s) Document(s ) Sodium <content Saint [Moles/volume] styleCode="Bold Agustin in Serum or ">Sodium Medical Plasma </content>Test Center not performed. MEQ/L (Reference Range: not available)
Potassium <content Saint [Moles/volume] styleCode="Bold Agustin in Serum or ">Potassium Medical Plasma </content>Test Center not performed. MEQ/L (Reference Range: not available)
Chloride <content Saint [Moles/volume] styleCode="Bold Agustin in Serum or ">Chloride Medical Plasma </content>Test Center not performed. MEQ/L (Reference Range: not available)
Carbon <content Saint dioxide, total styleCode="Bold Agustin [Moles/volume] ">Carbon Medical in Serum or Dioxide Center Plasma </content>Test not performed. MEQ/L (Reference Range: not available)
Creatinine <content Saint [Mass/volume] styleCode="Bold Agustin in Serum or ">Creatinine Medical Plasma </content>Test Center not performed. MG/DL (Reference Range: not available)
UNK <content Saint styleCode="Bold Agustin ">BUN Medical </content>Test Center not performed. MG/DL (Reference Range: not available)
Calcium <content Saint [Mass/volume] styleCode="Bold Agustin in Serum or ">Calcium Medical Plasma </content>Test Center not performed. MG/DL (Reference Range: not available)
Glucose <content Saint [Mass/volume] styleCode="Bold Agustin in Serum or ">Glucose Medical Plasma </content>Test Center not performed. MG/DL (Reference Range: not available)
UNK <content Saint styleCode="Bold Agustin ">EGFR Medical </content>Test Center not performed. GFR (Reference Range: not available)
ID Date Data Source Urinalysis.[id number] 09/06/2019 11:30:00 AM EDT [facility] 0 Name Value Range Interpretation Description Data Sup porting Code Source(s) Document(s ) Color of Urine YELLOW <content Saint styleCode="Shane Maganas d">Color, Medical Urine Center </content>YELL OW <content styleCode="Iva lics"> (YELLOW )</content> UNK CLEAR <content [facility] styleCode="Shane Maganas d">Urine Medical Clarity Center </content>GEENA R <content styleCode="Iva lics"> (CLEAR )</content> Glucose NEGATIVE <content Saint [Mass/volume] styleCode="Shane Maganas in Urine by d">Urine Medical Test strip Glucose Center </content>>=10 00 MG/DL<content styleCode="Iva lics"> (NEGATIVE MG/DL)</conten t> Ketones NEGATIVE <content [facility] [Mass/volume] styleCode="Shane Agustin in Urine by d">Urine Medical Test strip [facility] </content>TRAC E MG/DL<content styleCode="Iva lics"> (NEGATIVE MG/DL)</conten t> UNK NEGATIVE <content Saint styleCode="Shane Agustin d">Urine Medical Bilirubin Center </content>NEGA TIVE <content styleCode="Iva lics"> (NEGATIVE )</content> Specific 1.015-1.02 Below low normal <content Saint gravity of 5 styleCode="Shane Maganas Urine by Test d">Urine Medical strip Specific Center [place] </content>1.01 0 L<content styleCode="Iva lics"> (1.015-1.025 )</content> Hemoglobin NEGATIVE <content Saint [Presence] in styleCode="Shane Maganas Urine by Test d">Urine Blood Medical strip </content>TRAC Center E <content styleCode="Iva lics"> (NEGATIVE )</content> Protein NEGATIVE <content Saint [Mass/volume] styleCode="Shane Maganas in Urine by d">Urine Medical Test strip Protein Center </content>30 MG/DL<content styleCode="Iva lics"> (NEGATIVE MG/DL)</conten t> pH of Urine by 4.5-8.0 <content Saint Test strip styleCode="Shane Agustin d">Urine pH Medical </content>6.0 Center <content styleCode="Iva lics"> (4.5-8.0 )</content> Urobilinogen 0.2-1.0 <content Saint [Units/volume] styleCode="Shane Agustin in Urine by d">Urine Medical Test strip Urobilinogen Center </content>0.2 MG/DL<content styleCode="Iva lics"> (0.2-1.0 MG/DL)</conten t> Nitrite NEGATIVE <content Saint [Presence] in styleCode="Shane Velez Urine by Test d">Urine Medical strip Nitrite Center </content>POSI TIVE <content styleCode="Iva lics"> (NEGATIVE )</content> Leukocyte NEGATIVE <content Saint esterase styleCode="Shane Velez [Presence] in d">Urine Medical Urine by Test Leukocyte Center strip </content>NEGA TIVE <content styleCode="Iva lics"> (NEGATIVE )</content> UNK 0-3 <content Saint styleCode="Shane Maagnas d">Urine Red Medical Blood Cell Center </content>0-3 HPF<content styleCode="Iva lics"> (0-3 HPF)</content> UNK 0-3 <content Saint styleCode="Shane Agustin d">Urine White Medical Blood Cell Center </content>0-3 HPF<content styleCode="Iva lics"> (0-3 HPF)</content> UNK NONE SEEN <content Saint styleCode="Shane Maganas d">Epithelial Medical Cell Center </content>2-5 HPF<content styleCode="Iva lics"> (NONE SEEN HPF)</content> UNK NEGATIVE <content Saint styleCode="Shane Maganas d">Urine Medical Bacteria Center </content>MANY HPF<content styleCode="Iva lics"> (NEGATIVE HPF)</content> ID Date Data Source LIPID.[id number] 09/06/2019 05:43:00 AM EDT [facility] Name Value Range Interpretation Description Data Sup porting Code Source(s) Document(s ) Cholesterol -<200 Above high normal <content Saint [Mass/volume] styleCode="Bold"> Agustin in Serum or Cholesterol Medical Plasma </content>219 Center MG/DL H<content styleCode="Italic s"> (-<200 MG/DL)</content> Triglyceride < 150 Above high normal <content Saint [Mass/volume] styleCode="Bold"> Agustin in Serum or Triglycerides Medical Plasma </content>276 Center MG/DL H<content styleCode="Italic s"> (< 150 MG/DL)</content> UNK > 60 Below low normal <content Saint styleCode="Bold"> [place] HDL- Cholesterol Medical </content>56 Center MG/DL L<content styleCode="Italic s"> (> 60 MG/DL)</content> UNK <content Saint styleCode="Bold"> [place] LDL-Cholesterol Medical </content> Center (Reference Range: not available)
<c ontent styleCode="xLocal PreformattedText" >Triglycerides are >250 mg/dl; therefore, the LDL calculation is invalid.
Chol esterol electrophoresis is recommended if medically appropriate.</con tent> ID Date Data Source CardiacMarkers.[id number] 09/06/2019 05:43:00 AM EDT [facility] -0400 Name Value Range Interpretation Description Data Sup porting Code Source(s) Document(s ) Troponin < 0.034 <content Saint I.cardiac styleCode="Bold Agustin [Mass/volume ">Troponin I Medical ] in Serum </content>< Center or Plasma 0.012 NG/ML<content styleCode="Ital ics"> (< 0.034 NG/ML)</content > ID Date Data Source GFR(Creatinine).[id number] 09/06/2019 05:43:00 AM EDT [facility] 0-0400 Name Value Range Interpretation Code Description Data Adelita rce(s) Supporting Document(s ) UNK > 60 Below low normal <content Agustin styleCode="Bold"> Medical Cent er EGFR </content>47 GFR L<content styleCode="Italic s"> (> 60 GFR)</content> ID Date Data Source [id number] 09/06/2019 05:43:00 AM EDT [facility] Name Value Range Interpretation Description Data Sup porting Code Source(s) Document(s ) Potassium 3.5-5.3 Above upper panic <content Saint [Moles/volume] limits styleCode="Shane Agustin in Serum or d">Potassium Medical Plasma </content><con Center tent styleCode="Shane d">6.1 MEQ/L HH</content><c ontent styleCode="Iva lics"> (3.5-5.3 MEQ/L)</conten t> Sodium 137-145 Below low normal <content Saint [Moles/volume] styleCode="Shane Agustin in Serum or d">Sodium Medical Plasma </content>127 Center MEQ/L L<content styleCode="Iva lics"> (137-145 MEQ/L)</conten t> Chloride 98-107 Below low normal <content [facility] [Moles/volume] styleCode="Shane Agustin in Serum or d">Chloride Medical Plasma </content>86 Center MEQ/L L<content styleCode="Iva lics"> (98-107 MEQ/L)</conten t> Glucose 74-106 Above upper panic <content Saint [Mass/volume] limits styleCode="Shane Agustin in Serum or d">Glucose Medical Plasma </content><con Center tent styleCode="Shane d">790 MG/DL HH</content><c ontent styleCode="Iva lics"> (74-106 MG/DL)</conten t> Carbon 22-30 <content Saint dioxide, total styleCode="Shane Agustin [Moles/volume] d">Carbon Medical in Serum or Dioxide Center Plasma </content>26 MEQ/L<content styleCode="Iva lics"> (22-30 MEQ/L)</conten t> Creatinine 0.5-1.3 <content Saint [Mass/volume] styleCode="Shane Agustin in Serum or d">Creatinine Medical Plasma </content>1.2 Center MG/DL<content styleCode="Iva lics"> (0.5-1.3 MG/DL)</conten t> UNK 7-17 Above high normal <content Saint styleCode="Shane Agustin d">BUN Medical </content>30 Center MG/DL H<content styleCode="Iva lics"> (7-17 MG/DL)</conten t> Calcium 8.4-10.2 <content Saint [Mass/volume] styleCode="Shane Agustin in Serum or d">Calcium Medical Plasma </content>9.6 Center MG/DL<content styleCode="Iva lics"> (8.4-10.2 MG/DL)</conten t> UNK > 60 Below low normal <content Saint styleCode="Shane Agustin d">EGFR Medical </content>47 Center GFR L<content styleCode="Iva lics"> (> 60 GFR)</content> ID Date Data Source CardiacMarkers.[id number] 09/06/2019 12:52:00 AM EDT [facility] -0400 Name Value Range Interpretation Description Data Sup porting Code Source(s) Document(s ) Troponin < 0.034 <content Saint I.cardiac styleCode="Bold Agustin [Mass/volume ">Troponin I Medical ] in Serum </content>< Center or Plasma 0.012 NG/ML<content styleCode="Ital ics"> (< 0.034 NG/ML)</content > ID Date Data Source HematologyRou.[id number] 09/06/2019 12:52:00 AM EDT [facility] 0400 Name Value Range Interpretation Description Data Sup porting Code Source(s) Document(s ) Leukocytes 4.4-11.0 <content Saint [#/volume] in styleCode="Bold Agustin Blood by ">White Blood Medical Automated count Cell Count Center </content>8.87 KCUMM<content styleCode="Ital ics"> (4.4-11.0 KCUMM)</content > Hemoglobin 12.3-16. Below low normal <content Saint [Mass/volume] in 0 styleCode="Bold Agustin Blood ">Hemoglobin Medical </content>11.8 Center G/DL L<content styleCode="Ital ics"> (12.3-16.0 G/DL)</content> Hematocrit 36.0-46. Below low normal <content Saint [Volume 0 styleCode="Bold Agustin Fraction] of ">Hematocrit Medical Blood by </content>34.9 Center Automated count % L<content styleCode="Ital ics"> (36.0-46.0 %)</content> Erythrocytes 4.0-5.1 Below low normal <content Saint [#/volume] in styleCode="Bold Agustin Blood by ">Red Blood Medical Automated count Cell Count Center </content>3.91 MCUMM L<content styleCode="Ital ics"> (4.0-5.1 MCUMM)</content > Erythrocyte mean 32.0-37. <content Saint corpuscular 0 styleCode="Bold Agustin hemoglobin ">Mean Corpus. Medical concentration Hgb Center [Mass/volume] by Concentration Automated count (MCHC) </content>33.8 G/DL<content styleCode="Ital ics"> (32.0-37.0 G/DL)</content> Erythrocyte mean 80.0-100 <content Saint corpuscular .0 styleCode="Bold Agustin volume [Entitic ">Mean Medical volume] by Corpuscular Center Automated count Volume </content>89.3 FL<content styleCode="Ital ics"> (80.0-100.0 FL)</content> Erythrocyte mean 26.0-34. <content Saint corpuscular 0 styleCode="Bold Agustin hemoglobin ">Mean Medical [Entitic mass] Corposcular Center by Automated Hemoglobin count </content>30.2 PG<content styleCode="Ital ics"> (26.0-34.0 PG)</content> Erythrocyte 11.5-14. <content Saint distribution 5 styleCode="Bold Agustin width [Ratio] by ">Red Cell Medical Automated count Distribution Center Width </content>13.0 %<content styleCode="Ital ics"> (11.5-14.5 %)</content> UNK 0 <content Saint styleCode="Bold Agustin ">Nucleated Red Medical Blood Cell Center </content>0.0 /100<content styleCode="Ital ics"> (0 /100)</content> Platelet mean 8.0-11.0 <content Saint volume [Entitic styleCode="Bold Agustin volume] in Blood ">Mean Platelet Medical by Automated Volume Center count </content>10.9 FL<content styleCode="Ital ics"> (8.0-11.0 FL)</content> Platelets 130-400 Below low normal <content Saint [#/volume] in styleCode="Bold Agustin Blood by ">Platelet Medical Automated count Count Center </content>110 KCUMM L<content styleCode="Ital ics"> (130-400 KCUMM)</content > UNK 0.0 <content Saint styleCode="Bold Agustin ">Nucleated Red Medical Blood Cell Center Count </content>0.00 KCUMM<content styleCode="Ital ics"> (0.0 KCUMM)</content > UNK 1.6-4.9 <content Saint styleCode="Bold Agustin ">Immature Medical Platelet Center Fraction </content>3.2 %<content styleCode="Ital ics"> (1.6-4.9 %)</content> ID Date Data Source GFR(Creatinine).[id number] 09/06/2019 12:52:00 AM EDT [facility] 0-0400 Name Value Range Interpretation Code Description Data Adelita rce(s) Supporting Document(s ) UNK > 60 Below low normal <content [facility] styleCode="Bold"> Medical Cent er EGFR </content>52 GFR L<content styleCode="Italic s"> (> 60 GFR)</content> ID Date Data Source CHMROUTINECCDA.[id number] 09/06/2019 12:52:00 AM EDT [facility] -0400 Name Value Range Interpretation Description Data Sup porting Code Source(s) Document(s ) Natriuretic < 125 Above high normal <content Saint peptide.B styleCode="Shane Agustin prohormone d">NT Pro BNP Medical N-Terminal </content>435 Center [Mass/volume] PG/ML in Serum or H<content Plasma styleCode="Iva lics"> (< 125 PG/ML)</conten t> ID Date Data Source [facility].[id number] 09/06/2019 12:52:00 AM EDT [facility] Name Value Range Interpretation Description Data Sup porting Code Source(s) Document(s ) Sodium 137-145 Below low normal <content Saint [Moles/volume] styleCode="Shane Agustin in Serum or d">Sodium Medical Plasma </content>127 Center MEQ/L L<content styleCode="Iva lics"> (137-145 MEQ/L)</conten t> Potassium 3.5-5.3 <content Saint [Moles/volume] styleCode="Shane Agustin in Serum or d">Potassium Medical Plasma </content>5.1 Center MEQ/L<content styleCode="Iva lics"> (3.5-5.3 MEQ/L)</conten t> Chloride 98-107 Below low normal <content Saint [Moles/volume] styleCode="Shane Agustin in Serum or d">Chloride Medical Plasma </content>92 Center MEQ/L L<content styleCode="Iva lics"> (98-107 MEQ/L)</conten t> UNK 7-17 Above high normal <content Saint styleCode="Shane Agustin d">BUN Medical </content>27 Center MG/DL H<content styleCode="Iva lics"> (7-17 MG/DL)</conten t> Creatinine 0.5-1.3 <content Saint [Mass/volume] styleCode="Shane Agustin in Serum or d">Creatinine Medical Plasma </content>1.1 Center MG/DL<content styleCode="Iva lics"> (0.5-1.3 MG/DL)</conten t> Carbon 22-30 <content Saint dioxide, total styleCode="Shane Agustin [Moles/volume] d">Carbon Medical in Serum or Dioxide Center Plasma </content>23 MEQ/L<content styleCode="Iva lics"> (22-30 MEQ/L)</conten t> UNK > 60 Below low normal <content Saint styleCode="Shane Agustin d">EGFR Medical </content>52 Center GFR L<content styleCode="Iva lics"> (> 60 GFR)</content> Glucose 74-106 Above upper panic <content Saint [Mass/volume] limits styleCode="Shane Agustin in Serum or d">Glucose Medical Plasma </content><con Center tent styleCode="Shane d">625 MG/DL HH</content><c ontent styleCode="Iva lics"> (74-106 MG/DL)</conten t> Calcium 8.4-10.2 <content Saint [Mass/volume] styleCode="Shane Agustin in Serum or d">Calcium Medical Plasma </content>9.7 Center MG/DL<content styleCode="Iva lics"> (8.4-10.2 MG/DL)</conten t> ID Date Data Source [id number] 09/06/2019 12:00:00 AM EDT [facility] Name Value Range Interpretation Code Description Data Adelita rce(s) Supporting Document(s ) 2019-nCoV [facility] RNA XXX KENNY+probe- Imp This lab was ordered by [facility] and reported by [employer]. ID Date Data Source [id number] 08/22/2019 09:50:00 PM EDT [facility] Name Value Range Interpretation Description Data Sup porting Code Source(s) Document(s ) SARS [facility] coronavirus 2 RNA This lab was ordered by [facility] and reported by [facility]. Procedure Social History Code Duration Value Status Description Data Source(s ) Caffeine Use 11/14/2019 completed NEXTGEN ([facility] Details 12:00:00 AM EDT [facility]) Smoking 11/14/2019 Unknown if completed Unknown if ever NEXTGEN ( [facility] 12:00:00 AM EDT ever smoked [facility]) Smoking 11/10/2019 Daily Smoker completed Daily Smoker [facility] 10:45:00 AM EDT Medical C enter Smoking 11/09/2019 Daily Smoker completed Daily Smoker [facility] 11:13:00 PM EDT Medical C enter Smoking 11/09/2019 Daily Smoker completed Daily Smoker [facility] 10:53:00 PM EDT Medical C enter Smoking 09/06/2019 Denies Ever completed Denies Ever [place] [facility] 01:47:00 PM EDT Smoked Smoked Medical C enter Smoking 09/06/2019 Daily Smoker completed Daily Smoker [facility] 08:36:00 AM EDT Medical C enter Smoking 09/05/2019 Daily Smoker completed Daily Smoker [facility] 11:00:00 PM EDT Medical C enter Smoking 09/05/2019 Daily Smoker completed Daily Smoker [facility] 10:45:00 PM EDT Medical C enter Smoking 09/05/2019 Daily Smoker completed Daily Smoker [facility] 09:17:00 PM EDT Medical C enter Caffeine Use 03/03/2019 completed NEXTGEN ([facility] Details 12:00:00 AM [facility]) Vital Signs ID Date Data Source UNK Name Value Range Interpretation Code Description Data Source(s) Body temperature 36.114358 36.379464 [facility] Respiratory rate 20 /min 20 /min [facility] Heart rate 102 /min 102 /min [facility] Diastolic blood 54 mm[Hg] 54 mm[Hg] [facility] Systolic blood 89 mm[Hg] 89 mm[Hg] [facility] Body temperature 36.630239 36.612784 [facility] Respiratory rate 18 /min 18 /min [facility] Heart rate 109 /min 109 /min [facility] Diastolic blood 57 mm[Hg] 57 mm[Hg] [facility] Systolic blood 105 mm[Hg] 105 mm[Hg] [facility] Body temperature 36.260333 36.505450 [facility] Respiratory rate 20 /min 20 /min [facility] Heart rate 107 /min 107 /min [facility] Diastolic blood 57 mm[Hg] 57 mm[Hg] [facility] Systolic blood 122 mm[Hg] 122 mm[Hg] [facility] Body temperature 36.842267 36.709421 [facility] Respiratory rate 20 /min 20 /min [facility] Heart rate 102 /min 102 /min [facility] Diastolic blood 57 mm[Hg] 57 mm[Hg] [facility] Systolic blood 111 mm[Hg] 111 mm[Hg] [facility] Body temperature 36.522805 36.258928 [facility] Respiratory rate 20 /min 20 /min [facility] Heart rate 101 /min 101 /min [facility] Diastolic blood 61 mm[Hg] 61 mm[Hg] [facility] Systolic blood 108 mm[Hg] 108 mm[Hg] [facility] Body temperature 36.133510 36.739614 [facility] Respiratory rate 20 /min 20 /min [facility] Heart rate 97 /min 97 /min [facility] Diastolic blood 52 mm[Hg] 52 mm[Hg] [facility] pressure Medical Center Systolic blood 86 mm[Hg] 86 mm[Hg] [facility] [place] Body temperature 36.294025 36.317760 [facility] Heart rate 99 /min 99 /min [facility] Diastolic blood 46 mm[Hg] 46 mm[Hg] [facility] Systolic blood 96 mm[Hg] 96 mm[Hg] [facility] Body temperature 36.821594 36.818769 [facility] Respiratory rate 20 /min 20 /min [facility] Heart rate 95 /min 95 /min [facility] Diastolic blood 66 mm[Hg] 66 mm[Hg] [facility] Systolic blood 114 mm[Hg] 114 mm[Hg] [facility] Body temperature 37.565205 37.697590 [facility] Respiratory rate 20 /min 20 /min [facility] Heart rate 106 /min 106 /min [facility] Diastolic blood 56 mm[Hg] 56 mm[Hg] [facility] Systolic blood 100 mm[Hg] 100 mm[Hg] [facility] [place] Body weight 65.625084 kg 65.020038 kg [facility] [place] Body height 162.043495 162.771805 cm [facility] Body mass index 24.79 kg/m2 24.79 kg/m2 [facility] (BMI) [Ratio] Medical [facility] ter Body temperature 36.317134 36.628808 [facility] Respiratory rate 18 /min 18 /min [facility] Heart rate 103 /min 103 /min [facility] Diastolic blood 72 mm[Hg] 72 mm[Hg] [facility] Systolic blood 129 mm[Hg] 129 mm[Hg] [facility] Oxygen saturation 98 % 98 % [facility] Arterial blood Medical Center by Pulse oximetry Respiratory rate 18 /min 18 /min [facility] Oxygen saturation 98 % 98 % [facility] Arterial blood Medical Center by Pulse oximetry Oxygen saturation 99 % 99 % [facility] Arterial blood Medical Center by Pulse oximetry Body weight 63.731401 kg 63.585498 kg [facility] Measured Medical Center Oxygen saturation 98 % 98 % [facility] blood [facility] Center by Pulse oximetry Body height 162.885658 162.189620 cm [facility] Center Body mass index 24.0 kg/m2 24.0 kg/m2 [facility] (BMI) [Ratio] Medical [address] Oxygen saturation 98 % 98 % [facility] by Pulse oximetry Body temperature 36.387053 36.539177 [facility] Respiratory rate 18 /min 18 /min [facility] Heart rate 100 /min 100 /min [facility] Diastolic blood 58 mm[Hg] 58 mm[Hg] [facility] Systolic blood 115 mm[Hg] 115 mm[Hg] [facility] Body temperature 36.511235 36.619038 [facility] Respiratory rate 20 /min 20 /min [facility] Heart rate 87 /min 87 /min [facility] Diastolic blood 52 mm[Hg] 52 mm[Hg] [facility] Systolic blood 104 mm[Hg] 104 mm[Hg] [facility] Center Oxygen saturation 96 % 96 % [facility] by Pulse oximetry Body temperature 36.731441 36.873045 [facility] Respiratory rate 18 /min 18 /min [facility] Heart rate 80 /min 80 /min [facility] Diastolic blood 65 mm[Hg] 65 mm[Hg] [facility] Systolic blood 132 mm[Hg] 132 mm[Hg] [facility] Body temperature 37.352346 37.773544 [facility] Respiratory rate 18 /min 18 /min [facility] Heart rate 91 /min 91 /min [facility] Diastolic blood 69 mm[Hg] 69 mm[Hg] [facility] pressure Medical Center Systolic blood 131 mm[Hg] 131 mm[Hg] [facility] Center Systolic blood 107 mm[Hg] 107 mm[Hg] [facility] Body temperature 37.233235 37.495159 [facility] Respiratory rate 18 /min 18 /min [facility] Heart rate 91 /min 91 /min [facility] Diastolic blood 50 mm[Hg] 50 mm[Hg] [facility] Oxygen saturation 98 % 98 % [facility] Arterial blood Medical Center by Pulse oximetry Oxygen saturation 100 % 100 % [facility] Arterial blood Medical Center by Pulse oximetry Body weight 68.035112 kg 68.759176 kg [facility] Measured Medical Center Body temperature 36.344043 36.647511 [facility] Respiratory rate 13 /min 13 /min [facility] Heart rate 88 /min 88 /min [facility] Diastolic blood 58 mm[Hg] 58 mm[Hg] [facility] [place] Systolic blood 96 mm[Hg] 96 mm[Hg] [facility] [place] Respiratory rate 17 /min 17 /min [facility] Heart rate 98 /min 98 /min [facility] Diastolic blood 63 mm[Hg] 63 mm[Hg] [facility] Systolic blood 132 mm[Hg] 132 mm[Hg] [facility] [place] Body temperature 36.295756 36.917492 [facility] Respiratory rate 18 /min 18 /min [facility] Heart rate 96 /min 96 /min [facility] Diastolic blood 62 mm[Hg] 62 mm[Hg] [facility] Systolic blood 119 mm[Hg] 119 mm[Hg] [facility] Center Respiratory rate 13 /min 13 /min [facility] Heart rate 96 /min 96 /min [facility] Diastolic blood 70 mm[Hg] 70 mm[Hg] [facility] pressure Medical Center Systolic blood 143 mm[Hg] 143 mm[Hg] [facility] Body weight 70.536023 kg 70.016490 kg [facility] Measured Medical Center Oxygen saturation 100 % 100 % [facility] Arterial blood Medical Center by Pulse oximetry Body height 154.947173 154.308929 cm [facility] Body mass index 29.16 kg/m2 29.16 kg/m2 [facility] (BMI) [Ratio] Medical [address] Body temperature 36.490596 36.710309 [facility] Respiratory rate 14 /min 14 /min [facility] Heart rate 98 /min 98 /min [facility] Diastolic blood 61 mm[Hg] 61 mm[Hg] [facility] pressure Medical Center Systolic blood 118 mm[Hg] 118 mm[Hg] [facility] Body temperature 36.358458 36.833533 [facility] Oxygen saturation 98 % 98 % [facility] Center by Pulse oximetry Body temperature 36.225167 36.092396 [facility] Body weight 67.977285 kg 67.350480 kg [facility] Measured Medical Center Body height 162.071370 162.724674 cm [facility] Body mass index 25.51 kg/m2 25.51 kg/m2 [facility] (BMI) [Ratio] Medical [facility] ter Oxygen saturation 98 % 98 % [facility] Arterial blood [facility] Center by Pulse oximetry Oxygen saturation 98 % 98 % [facility] Arterial blood [facility] Center by Pulse oximetry Oxygen saturation 98 % 98 % [facility] blood [facility] Center by Pulse oximetry Body weight 77.105603 kg 77.193844 kg [facility] Measured Medical Center Body height [phone] cm [facility] Body mass index 29.1 kg/m2 29.1 kg/m2 [facility] (BMI) [Ratio] [facility] ter Patient Treatment Plan of Care Planned Activity Planned Date Details Description Data Source (s) quetiapine 200 MG [facility]) gabapentin 300 mg capsule 01/18/2019 12:00:00 [facility]EXTGEN ([facility]) 24 HR venlafaxine 150 MG 01/18/2019 12:00:00 [facility] ([facility]) quetiapine 200 MG Oral 01/18/2019 12:00:00 [facility] ([facility]t [Seroquel[facility] AM [facility]) quetiapine 200 MG Oral 12/27/2018 12:00:00 [facility] ([facility] Tablet [Seroquel] AM [facility]) gabapentin 300 MG Oral 12/27/2018 12:00:00 NEXTGEN ([facility] Capsule AM [facility]) 24 HR venlafaxine 150 MG 12/27/2018 12:00:00 [facility]EXTGEN ([facility] Extended Release Oral AM [facility] [Effexor] [place]) gabapentin 300 MG Oral 11/23/2018 12:00:00 NEXTGEN ([facility] Capsule AM [facility]) quetiapine 200 MG Oral 11/23/2018 12:00:00 [facility]EXTGEN ([facility] Tablet [Seroquel] AM [facility]) 24 HR venlafaxine 150 MG 11/23/2018 12:00:00 [facility]EXTGEN ([facility] Extended [facility] Oral AM [facility] [Effexor] [place]) Zolpidem tartrate 5 MG 11/23/2018 12:00:00 [facility]EXTGEN ([facility] Oral Tablet [Ambien] AM [facility]) Hydroxyzine Hydrochloride 08/16/2018 12:00:00 [facility]EXTGEN ([facility] 50 MG Oral Tablet AM [facility]) quetiapine 200 MG Oral 08/16/2018 12:00:00 [facility]EXTGEN ([facility] Tablet [Seroquel] AM [facility]) 24 HR venlafaxine 150 MG 08/16/2018 12:00:00 NEXTGEN ([facility] Extended Release Oral AM [facility] [Effexor] [place]) Zolpidem tartrate 5 MG 08/16/2018 12:00:00 NEXTGEN ([facility] Oral Tablet [Ambien] AM [facility])
[2019-12-17] MEDS ORDERED: ALBUTEROL SO4 HFA INHALER IH ONE (17:17)
[2019-12-17] MEDS ORDERED: SODIUM CHLORIDE 1,000 ML IV STA (17:20)
--- NOTE | 2019-12-17 18:04 | PDOC ---
History of Present Illness - General Chief Complaint: Psychiatric Stated Complaint: SOB/ANXIETY Time Seen by Provider: 12/17/19 16:54 - History of Present Illness Initial Comments: 12/17/19 18:05 69 yo female with pmh DM2 (non-compliant) c/b peripheral neuropathy and CKD, HTN, COPD, schizoaffective disorder, depression, opiate and tobacco abuse presenting to the ED for SOB for the last four days. Pt explains she has had sxs in the past similar to this which was diagnosed with COPD exacerbation. Pt explains she has mild chest pain that she has been having for the last four days as well. Pt explains chest pain is sharp worse with exertion and better with rest. Pt also has associated leg pain which she has had since prior ER visit. Pt denies fevers, chills, inc cough, worsening lower ext edema, abd pain. PMH: DM, CKD, HTN, COPD, schizoaffective disorder, depression, opiate and tobacco abuse (chart pt only says COPD and DM) Meds: noncompliant has not taken or know meds Allergies: NKDA Social: 30+ smoking history denies drinking and drugs (prior notes express opioid abuse) PCP: Dr. Kc Past History - Medical History Allergies/Adverse Reactions: Allergies Allergy/AdvReac Type Severity Reaction Status Date / Time No Known Allergies Allergy Verified 12/09/19 13:30 Home Medications: Ambulatory Orders Aspirin [ASA -] 81 mg PO DAILY 09/14/19 Glimepiride 2 mg PO BID 09/14/19 Quetiapine Fumarate [Seroquel -] 200 mg PO TID 09/14/19 Simvastatin [Zocor] 20 mg PO HS 09/14/19 Sitagliptin Phosphate [Januvia] 100 mg PO DAILY 09/14/19 Venlafaxine HCl ER [Effexor Xr -] 150 mg PO DAILY 09/14/19 Walker [Ultra-Light Rollator] 1 each MC DAILY #1 each 09/14/19 Anemia: No Asthma: No Cancer: No Cardiac Disorders: No CVA: No COPD: No CHF: No Dementia: No Diabetes: Yes (type 2) GI Disorders: No Disorders: No HTN: Yes Hypercholesterolemia: No Liver Disease: No Psychiatric Problems: Yes Seizures: No Thyroid Disease: No - Surgical History Abdominal Surgery: No Appendectomy: Yes Cardiac Surgery: No Cholecystectomy: No Lung Surgery: No Neurologic Surgery: No Orthopedic Surgery: No - Reproductive History Is Patient Now?: No - Immunization History Td Vaccination: Yes TDAP Vaccination: Yes Immunization Up to Date: Yes - Psycho-Social/Smoking History Smoking Status: No Smoking History: Never smoked Years of Tobacco Use: 0 Have you smoked in the past 12 months: No Number of Cigarettes Smoked Daily: 5 If you are a former smoker, when did you quit?: 1 month ago Cigars Per Day: 0 Information on smoking cessation initiated: No 'Breaking Loose' booklet given: 08/28/18 - Substance Abuse Hx (Audit-C & DAST Scrn) How often the patient has a drink containing alcohol: Never Score: In Men: 4 or > Positive; In Women: 3 or > Positive: 0 Screen Result (Pos requires Nsg. Audit-10AR): Negative In the last yr the pt used illegal drug/Rx for NonMed reason: No Score: Yes response is considered Positive: 0 Screen Result (Positive result requires Nsg. DAST-10): Negative Review of Systems - Review of Systems Comments:: 12/17/19 20:05 GENERAL/CONSTITUTIONAL: No fever or chills. No weakness. HEAD, EYES, EARS, NOSE AND THROAT: No change in vision. No ear pain or discharge. No sore throat. CARDIOVASCULAR: Chest pain and SOB RESPIRATORY: No cough, wheezing, or hemoptysis. GASTROINTESTINAL: No nausea, vomiting, diarrhea or constipation. GENITOURINARY:inc frequency MUSCULOSKELETAL: No joint or muscle swelling or pain. Neck pain SKIN: No rash NEUROLOGIC: No headache, vertigo, loss of consciousness, or change in strength/sensation. ALLERGIC/IMMUNOLOGIC: No hives or skin allergy. *Physical Exam - Vital Signs Last Vital Signs Temp Pulse Resp BP Pulse Ox 98.0 F 88 18 125/75 100 12/17/19 16:31 12/17/19 16:31 12/17/19 16:31 12/17/19 16:31 12/17/19 16:31 - Physical Exam 12/17/19 20:06 GENERAL: Awake, alert, and fully oriented, in no acute distress HEAD: No signs of trauma, normocephalic, atraumatic EYES: PERRLA, EOMI, sclera anicteric, conjunctiva clear ENT: Auricles normal inspection, hearing grossly normal, nares patent, oropharynx clear without exudates. Moist mucosa NECK: Normal ROM, supple, no lymphadenopathy, JVD, or masses LUNGS: No distress, speaks full sentences, clear to auscultation bilaterally HEART: Regular rate and rhythm, normal S1 and S2,holosystolic murmur, peripheral pulses normal and equal bilaterally. ABDOMEN: Soft, nontender, normoactive bowel sounds. No guarding, no rebound. No masses EXTREMITIES : Normal inspection, Normal range of motion, no edema. No clubbing or cyanosis. NEUROLOGICAL: Cranial nerves II through XII grossly intact. Normal speech, normal gait, no focal sensorimotor deficits SKIN: Warm, Dry, normal turgor, no rashes or lesions noted ED Treatment Course - LABORATORY CBC & Chemistry Diagram: 12/17/19 20:10 12/18/19 00:40 Medical Decision Making - Medical Decision Making 12/17/19 20:08 69 yo female with pmh above presents with chest pain and sob. Assesment: - ACS - CHF - PNA - DKA (prior hx) - COPD ( no wheezing on exam less likely) PLAN: Will get cbc, cmp, ekg, cxr, cardiac enzymes, bnp, vbg. Pt signed out to PM team Discharge - Discharge Information Problems reviewed: Yes Clinical Impression/Diagnosis: Hyperglycemia Condition: Stable - Follow up/Referral - Patient Discharge Instructions - Post Discharge Activity
--- NOTE | 2019-12-17 19:07 | PDOC ---
Documentation entered by Dia Saleh SCRIBE, acting as scribe for Holland Morrissey MD. Holland Morrissey MD: This documentation has been prepared by the scribe, Dia Saleh SCRIBE, under my direction and personally reviewed by me in its entirety. I confirm that the documentation accurately reflects all work, treatment, procedures, and medical decision making performed by me. Attending Attestation - Resident Resident Name: Cruz Mcbride - ED Attending Attestation I have performed the following: I have examined & evaluated the patient, The case was reviewed & discussed with the resident, I agree w/resident's findings & plan, Exceptions are as noted - HPI HPI: 12/17/19 18:05 Patient is a 69 year old female with a significant past medical history of CKD, DM2, HTN, COPD, schizoaffective disorder, dpression, presenting with complaint of SOB x 4 days. Pt states she has been feeling sob/bailon associated with chest discomfot. denies any fever/chills, n/v, le edema, leg swellnig, hemoptysis, urinary symptoms. - Physicial Exam PE: 12/17/19 19:01 GENERAL: The patient is awake, alert, and fully oriented, Nontoxic - in no acute distress. HEAD: Normocephalic, atraumatic. EYES: extraocular movements intact, sclera anicteric, conjunctiva clear. ENT: Normal voice, Moist mucous membranes. NECK: Normal range of motion, supple LUNGS: Breath sounds equal, clear to auscultation bilaterally. No wheezes, no rhonchi, no rales. HEART: Regular rate and rhythm, normal S1 and S2 without murmur, rub or gallop. ABDOMEN: Soft, nontender, No guarding, no rebound. No CVA tenderness EXTREMITIES: Normal range of motion, no edema. No calf tenderness, neg homans, NEUROLOGICAL: No facial assymetry, Normal speech, PSYCH: Normal mood, normal affect. SKIN: Warm, Dry, normal turgor, - Medical Decision Making 12/17/19 19:06 ddx includes but is not limited to metabolic derangment, anemia, acs, consider possible copd, however lungs relatively clear will treat with albuterol cxr to r/o acute pathology, ekg will ck labs signed out to evening team to reevaluate and disposition Heart Score/ECG Review - ECG Impressions Comment:: 12/17/19 19:29 EKG performed 18:38 Rate of [address] wav changes suggestive of acute ischemia abnormal R wave progression Discharge - Discharge Information Problems reviewed: Yes Clinical Impression/Diagnosis: Hyperglycemia Condition: Stable - Follow up/Referral - Patient Discharge Instructions - Post Discharge Activity
[2019-12-17 19:16] LABS: CHLORIDE 91 mmol/L (98-107); POTASSIUM 5.5 mmol/L (3.5-5.1); SODIUM 126 mmol/L (136-145)
[2019-12-17 19:17] LABS: CALCIUM 8.8 mg/dL (8.5-10.1)
[2019-12-17 19:18] LABS: ALBUMIN 2.8 g/dl (3.4-5.0); ANION GAP 14 MMOL/L (8-16); BLOOD UREA NITROGEN 32.7 mg/dL (7-18); CO2 22 mmol/L (21-32)
[2019-12-17 19:21] LABS: CREATININE 1.9 mg/dL (0.55-1.3); SGOT/AST 20 U/L (15-37); SGPT/ALT 27 U/L (13-61)
[2019-12-17 19:23] LABS: BILIRUBIN,TOTAL 0.6 mg/dL (0.2-1); TOT PROT 8.2 g/dl (6.4-8.2)
[2019-12-17 19:24] LABS: ALK PHOS 117 U/L (45-117)
[2019-12-17 19:26] LABS: N-TERMINAL BNP 278.5 pg/ml (5-125)
--- NOTE | 2019-12-17 19:26 | PDOC ---
*Physical Exam - Vital Signs Last Vital Signs Temp Pulse Resp BP Pulse Ox 98.0 F 88 18 125/75 100 12/17/19 16:31 12/17/19 16:31 12/17/19 16:31 12/17/19 16:31 12/17/19 16:31 - Physical Exam General Appearance: Yes: Appropriately Dressed, Mild Distress HEENT: positive: EOMI, Normal Voice Neck: negative: Tender, Rigid Respiratory/Chest: positive: Lungs Clear, Normal Breath Sounds. negative: Respiratory Distress Cardiovascular: positive: Regular Rhythm, Regular Rate, S1, S2 Gastrointestinal/Abdominal: positive: Flat, Soft. negative: Tender Musculoskeletal: positive: Normal Inspection. negative: CVA Tenderness Extremity: positive: Normal Capillary Refill, Normal Inspection, Normal Range of Motion Integumentary: positive: Normal Color, Dry, Warm Neurologic: positive: Fully Oriented, Alert, Normal Mood/Affect, Other (agitated ) ED Treatment Course - LABORATORY CBC & Chemistry Diagram: 12/17/19 20:10 12/18/19 00:40 - ADDITIONAL ORDERS Additional order review: Laboratory Results 12/17/19 18:40 Sodium 126 L Potassium 5.5 H Chloride 91 L Carbon Dioxide 22 Anion Gap 14 BUN 32.7 H Creatinine 1.9 H Est GFR (CKD-EPI)AfAm 30.42 Est GFR (CKD-EPI)NonAf 26.25 Calcium 8.8 Total Bilirubin 0.6 AST 20 ALT 27 Alkaline Phosphatase 117 Total Protein 8.2 Albumin 2.8 L 12/17/19 18:40 RBC Cancelled MCV Cancelled MCHC Cancelled RDW Cancelled MPV Cancelled Neutrophils % Cancelled Lymphocytes % Cancelled Monocytes % Cancelled Eosinophils % Cancelled Basophils % Cancelled Medical Decision Making - Medical Decision Making 69 yo female with pmh HTN, CKD, COPD, DM2, Peripheral neuropathy, Schizoeffective disorder, polysubstance abuse. Pt presents with 4 day hx of cp + sob VS: wnl PE: RRR, clear lungs, nt nd abdomen EKG: normal axis, regular rhythm, regular rate, no st elevation, borderline peaked t waves Labs: CBC: leukocytosis 14.1 CMP: hyponatremic 126, corrected to 133 hyperkalemia 5.5, repeat 5.7, both hemolyzed hyperglycemic 559, no anion gap, beta hydroxybutyrate 39.1 BNP 278 VBG: wnl Trop: negative UA : contaminated (29 epi) with bacteria (>9k) UC pending CXR: no acute pathology TX 2L LR Albuterol 10 novolog, repeat glucose 450 @2340. repeat glucose 405 @0200 1g ceftriaxone DDx: UTI Hyperglycemia vs DKA vs HHNK COPD ACS Pt admitted to med/surg floors. Discharge - Discharge Information Problems reviewed: Yes Clinical Impression/Diagnosis: Hyperglycemia Condition: Stable - Admission Yes - Follow up/Referral - Patient Discharge Instructions - Post Discharge Activity
[2019-12-17 19:31] LABS: GLUCOSE,RANDOM 559 mg/dL (74-106)
[2019-12-17] MEDS ORDERED: LACTATED RINGERS SOLUTION 1000 ML INFUS.BAG IV ONE ×2 (19:32→21:45)
[2019-12-17 20:38] LABS: BASO % 0.4 % (0-2.0); EOS % 0.2 % (0-4.5); HEMATOCRIT 34.8 % (32.4-45.2); HEMOGLOBIN 11.2 GM/dL (10.7-15.3); LYMPH % 7.4 % (8-40); MCH 28.3 pg (25.7-33.7); MCHC 32.1 g/dl (32.0-36.0); MEAN CELL VOLUME 88.3 fl (80-96); MEAN PLT VOLUME 7.8 fl (7.5-11.1); MONO % 6.8 % (3.8-10.2); NEUT % 85.2 % (42.8-82.8); PLATELET COUNT 212 K/MM3 (134-434); RBC 3.94 M/mm3 (3.60-5.2); RDW 13.6 % (11.6-15.6); WHITE BLOOD COUNT 14.1 K/mm3 (4.0-10.0)
[2019-12-17 20:49] LABS: VENOUS BASE EXCESS -3.6 mmol/L (-2-2); VENOUS O2 SATURATION 23.3 % (70-80); VENOUS PCO2 46.5 mmHg (38-52); VENOUS PH 7.308 (7.310-7.410)
[2019-12-17 21:29] LABS: EPI CELLS 29 /uL (0-25.1); HYALINE CASTS 1 /uL (0-3.1); URINE APPEARANCE CLOUDY; URINE BACTERIA >9,000 /uL (0-1359); URINE BILIRUBIN NEGATIVE (NEGATIVE); URINE COLOR YELLOW; URINE GLUCOSE (UA) 3+ (NEGATIVE); URINE KETONE TRACE (NEGATIVE); URINE LEUK ESTERASE 1+ (NEGATIVE); URINE NITRITE NEGATIVE (NEGATIVE); URINE PROTEIN 1+ (NEGATIVE); URINE RBC 48 /uL (0-23.9); URINE UROBILINOGEN 0.2 mg/dL (0.2-1.0); URINE WBC 1490 /uL (0-25.8)
[2019-12-17 21:32] LABS: POTASSIUM 5.7 mmol/L (3.5-5.1)
[2019-12-17 21:35] LABS: CALCIUM 8.5 mg/dL (8.5-10.1)
[2019-12-17 21:39] LABS: CREATININE 2.1 mg/dL (0.55-1.3)
[2019-12-17] MEDS ORDERED: INSULIN (LEVEMIR) 100 UNITS/ML UNITS SQ ONE (21:41)
--- OUTSIDE RECORDS SUMMARY | 2019-12-17 22:15 | XMS ---
:1950 [facility] Providers Name Role Phone Jarvis Alyssa HANEY Unavailable Unavailable YANCI ELIZONDO Unavailable Unavailable NITZA FLORES Unavailable Unavailable ED STAFF PHYSICIAN, STAFF Unavailable Unavailable Trent-Aaron, Carola Unavailable [phone] Trent-Aaron, Carola Unavailable [phone] EMILIANO GOMEZ, PATRICIA Unavailable Unavailable ZUNASSIGNED, ZUNASSIGNED [...] is protected by Article 27-F of the [facility] Public Health law. If you continue you may haveaccess to information: Regarding HIV / AIDS; Provided by facilities licensed or operated by the [facility] Office of Mental Health; or Provided by the [facility] Office for People With Developmental Disabilities. If such information is present, then the following [facility] mandated warning applies: This information has been [...] law may result in a fine or detention sentence or both. A general authorization for the release of medical or other information is NOT sufficient authorization for further disclosure. Encounters Encounter Providers Location Date Indications Data Source(s ) Attender: [facility] 11/14/2019 NEXTG EN ([facility] 11:17:00 AM [facility] EDT - Center) 11/14/2019 11:17:00 AM EDT Outpatient Attender: YANCI Dominguez 11/13/2019 [facility] 10:05:00 AM Medical Cent gem MCCLELLANdmitter: EDT YANCI PETE Attender: [facility] 11/13/2019 NEXT EN ([facility] 10:05:00 AM [facility] EDT - [place]) 11/13/2019 10:05:00 AM EDT 11/13/2019 [facility] 12:00:00 AM Medical Cente r EDT - 09/13/2019 12:00:00 AM EDT Emergency Attender: Heide H-HAL6 11/09/2019 [facility] [place] MDAttender: 10:30:00 PM Medic al Center STAFF ED STAFF EDT - PHYSICIANAdmitter: 11/12/2019 STAFF ED STAFF 01:11:00 PM PHYSICIANReferrer: EDT ZUNASSIGNED ZUNASSIGNED Patient discharged. Inpatient Attender: PATRICIA CUMMINGS H-HAL5 09/05/2019 09:09:00 [facility] TRISTANAttender: NITZA PM EDT - 09/13/2019 [facility] KURUNADANTE Onealender: 05:29:00 PM EDT STAFF ED STAFF PHYSICIANAdmitter: PATRICIA EMILIANO TRISTANReferrer: PATRICIA EMILIANO PATRICIA Patient discharged. Attender: [facility] 03/03/2019 NE XTGEN ([facility] 04:50:00 PM [facility] 03/03/2019 Center) 04:50:00 PM EST Attender: [facility] 01/30/2019 NE XTGEN ([facility] 10:07:00 AM [facility] 01/30/2019 [place]) 10:07:00 AM EST Attender: [facility] 01/18/2019 NE XTGEN ([facility] 05:12:00 PM [facility] 01/18/2019 [place]) 05:12:00 PM EST Attender: [facility] 12/27/2018 NE XTGEN ([facility] 05:43:00 PM [facility] 12/27/2018 [place]) 05:43:00 PM EST Attender: [facility] 12/21/2018 NE XTGEN ([facility] 09:38:00 AM [facility] 12/21/2018 [place]) 09:38:00 AM EST OutpatientOF Attender: [facility] 11/23/2018 NEXTGEN [facility] [place]) EST 01:54:00 PM EDT Attender: [facility] 11/17/2018 NE XTGEN ([facility] 06:54:00 PM EDT [facility] 11/17/2018 Center) 06:54:00 PM EDT Attender: [facility] 11/06/2018 NE XTGEN ([facility] 04:37:00 PM EDT [facility] 11/06/2018 [place]) 04:37:00 PM EDT Attender: [facility] 11/06/2018 NE XTGEN ([facility] 04:29:00 PM EDT - [facility] 11/06/2018 [place]) 04:29:00 PM EDT 03/01/2018 [facility] 12:00:00 AM EST - [facility] 12/28/2017 12:00:00 AM EST Medications Medication Brand Start Product Dose Route Administrative Pharmacy [facility] Indications Reaction Description Data Name Date Form Instructions Instructions Source(s) quetiapine Seroqu ORAL active quetiapi ne NEXTGEN 200 MG Oral el 200 2018 {tabl 200 MG Ora l (Saint Tablet mg 12:00: et} Tablet Agustin [S[facility]quel] tablet 00 [facility] 200 mg tablet gabapentin gabape ORAL active [...] Tablet Agustin [[facility]quel] tablet 00 [facility] 200 mg tablet 24 HR Effexo ORAL [...] 12:00: Tablet Agustin [Seroquel] tablet 00 AM [[facility]) 200 mg tablet 24 HR Effexo ORAL [...] Agustin [Seroquel] tablet 00 AM [Seroque] [facility] [place]) 200 mg tablet gabapentin gabape ORAL complet [...] name Policy type Policy ID Covered Covered alliance party's Policy P rosalba / Coverage alliance party ID relationship to [facility] orm[facility] type marinelli MEDICAID [id number] SP [id number] MEDICARE [id number] SP [id number] M [id number] 01 [id number] W [id number] 01 [id number] W [id number] 01 [id number] M [id number] M [id number] 01 [id number] W [id number] 01 [id number] M [id number] 01 [id number] M SANS SOUCI [id number] DETENTION MEDICAID [id number] SP [id number] BLUE CROSS [id number] SP [id number] SENIOR PLAN BLUE CROSS [id number] SP [id number] SENIOR PLAN DEVANG MEDICARE [id number] SP [id number] MEDICAID [id number] SP [id number] JULISSA [id number] SP [id number] MEDICARE [facility] PLAN MEDICARE [id number] SP [id number] TARENTUM [id number] HEALTHCARE (MEDICARE) DEVANG MEDICARE [id number] SP [id number] MEDICARE [id number] SP [id number] Dental [id number] S [id number] [employer] MKD Superior [id number] S [id number] Vision MKD Marie Hlth [id number] S [id number] FFS Medicaid [place] [facility] [id number] S [id number] Options MKD Medicaid [id number] S [id number] Wrap Claims MVP Medicaid [id number] S [id number] F Managed Care Problems, Conditions, and Diagnoses [...] jesus Velez unspecified URINE, UNSPECIFIED 05:29:00 PM [facility] EDT Center F31.9 Bipolar disorder, BIPOLAR DISORDER, [...] without nonketotic COMA ([facility]) hyperglycemic-hypero smolar [facility] 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 09/13/2019 [facility] use of insulin (CURRENT) USE OF 05:29:00 PM Med ical INSULIN EDT Center R06.02 Shortness of breath SHORTNESS OF Diagnosis 09/05/2019 Huy nt [facility] BREATH 09:09:00 PM Medical EDT Center Surgeries/Procedures Procedure Description Date Indications Data Source(s) OFFICE/OUTPATIENT 11/23/2018 EUNICEGEN ([place] [facility] VISIT, EST 12:00:00 AM EDT - Medical Ce nter) 11/23/2018 12:00:00 AM EDT Results ID Date Data Source LIPID.[id number] 11/11/2019 06:45:00 AM EDT [facility] Center Name Value Range Interpretation Description Data Sup porting Code Source(s) Document(s ) UNK < 100 <content [facility] styleCode="Shane Agustin d">LDL-Cholest [facility] antony [place] </content>83 MG/DL<content styleCode="Iva lics"> (< 100 MG/DL)</conten t> UNK > 60 Below low normal <content [facility] styleCode="Shane Agustin d">HDL- Medical Cholesterol Center </content>48 MG/DL L<content styleCode="Iva lics"> (> 60 MG/DL)</conten t> Triglyceride < 150 Above high normal <content [facility] [Mass/volume] in styleCode="Shane Agustin Serum or Plasma d">Triglycerid [facility] </content>249 MG/DL H<content styleCode="Iva lics"> (< 150 MG/DL)</conten t> Cholesterol -<200 <content [facility] [Mass/volume] in styleCode="[facility] Serum or Plasma d">Cholesterol Medical </content>181 Center MG/DL<content styleCode="Iva lics"> (-<200 MG/DL)</conten t> ID Date Data Source MIKHAILMROUTINECCDA.[id number] 11/11/2019 06:45:00 AM EDT [facility] -0400 Name Value Range Interpretation Code Description Data Adelita rce(s) Supporting Document(s ) UNK 4.2-5.8 Above high normal <content [facility] styleCode="Bold" Medical Cente r >Hemoglobin A1C </content>13.1 % H<content styleCode="Itali cs"> (4.2-5.8 %)</content> ID Date Data Source Liver 11/10/2019 06:00:00 AM EDT [facility] Profile.[id number] Name Value Range Interpretation Description Data Sup [...] s"> (38-126 IU/L)</content> ID Date Data Source Hormones.[id number] 11/10/2019 06:00:00 AM EDT [facility] Name Value Range Interpretation Description Data Sup porting Code Source(s) Document(s ) Thyrotropin 0.465-4. <content [facility] [Units/volume] 68 styleCode="Shane Agustin in Serum or d">Thyroid Medical Plasma by Stimulating Center Detection Hormone limit <= 0.05 </content>2.12 mIU/L MIU/L<content styleCode="Iva lics"> (0.465-4.68 MIU/L)</conten t> ID Date Data Source HematologyRou.[id number] 11/10/2019 06:00:00 AM EDT [facility] nt [facility] 0400 Name Value Range Interpretation Description [...] ics"> (0 /100)</content> ID Date Data Source GFR(Creatinine).[id number] 11/10/2019 06:00:00 AM EDT [facility] 0-0400 Name Value Range Interpretation Code Description Data Adelita rce(s) Supporting Document(s ) UNK > 60 Below low normal <content [facility] styleCode="Bold"> Medical Cent er EGFR </content>36 GFR L<content styleCode="Italic s"> (> 60 GFR)</content> ID Date Data Source CHMROUTINECCDA.[id number] 11/10/2019 06:00:00 AM EDT [facility] -0400 Name Value Range Interpretation Description Data Sup porting Code Source(s) Document(s ) UNK >= 1.0 <content [facility] styleCode="Bold Medical ">AG Ratio Center </content>1.2 <content styleCode="Ital ics"> (>= 1.0 )</content> UNK 2.3-3.5 <content [facility] styleCode="Bold Medical ">Globulin Center </content>3.4 G/DL<content styleCode="Ital ics"> (2.3-3.5 G/DL)</content> Protein 6.3-8.2 <content [facility] [Mass/volum styleCode="Bold Medical e] in Serum ">Total Protein Center or Plasma </content>7.5 G/DL<content styleCode="Ital ics"> (6.3-8.2 G/DL)</content> ID Date Data Source [facility].[id number] 11/10/2019 06:00:00 AM EDT [facility] Name Value Range Interpretation Description [...] s"> (3.5-5.0 G/DL)</content> ID Date Data Source Urinalysis.[id number] 11/10/2019 01:19:00 AM EDT [facility] 0 Name Value Range Interpretation Description Data Sup porting Code Source(s) Document(s ) Color of Urine YELLOW <content [facility] styleCode="Shane Velez d">Color, Medical Urine Center </content>YELL OW <content styleCode="Iva lics"> (YELLOW )</content> UNK CLEAR <content [facility] styleCode="Shane Maganas d">Urine Medical Clarity Center </content>HAZY <content styleCode="Iva lics"> (CLEAR )</content> Glucose NEGATIVE <content [facility] [Mass/volume] styleCode="Shane Velez in Urine by d">Urine Medical Test strip Glucose Center </content>>=10 00 MG/DL<content styleCode="Iva lics"> (NEGATIVE MG/DL)</conten t> UNK NEGATIVE <content [facility] styleCode="Shane Maganas d">Urine Medical Bilirubin Center </content>NEGA TIVE <content styleCode="Iva lics"> (NEGATIVE )</content> Specific 1.015-1.02 Below low normal <content [facility] gravity of 5 styleCode="Shane Velez Urine by Test d">Urine Medical strip Specific Center [place] </content>1.01 0 L<content styleCode="Iva lics"> (1.015-1.025 )</content> Ketones NEGATIVE <content [facility] [Mass/volume] styleCode="Shane Velez in Urine by d">Urine Medical Test strip [...] (NONE SEEN HPF)</content> ID Date Data Source Microbiology.[id number] 11/10/2019 01:19:00 AM EDT [facility] 400 Name Value Range Interpretation Code Description Data Adelita rce(s) Supporting Document(s ) UNK <item><content [facility] styleCode="Bold">Cu Medical Ce nter lture Report </content>
<tab le><tbody><tr><td>S pecimen Number:</td><td>[id number]</td></tr><tr ><td>Sample Collection Date/Time: </td><td>11/10/2019 1:19 AM</td></tr><tr><td >Specimen Source:</td><td>URI NE</td></tr><tr><td >Urine Culture:</td><td>Co llection Plate Date: 11/10/2019 01:38 </td></tr><tr><td>C ulture Status:</td><td>Fin al </td></tr><tr><td>C ulture Report:</td><td>PLE ASE REPEAT SPECIMEN COLLECTION </td></tr><tr><td>O rganism 1:</td><td>COAGULAS E NEGATIVE STAPHYLOCOCCUS </td></tr><tr><td>O rganism 2:</td><td>Gram-neg ative pattie - Cattle Shipper species </td></tr><tr><td>O rganism 3:</td><td>Gram-neg ative pattie - Cattle Shipper species </td></tr><tr><td>O rganism 4:</td><td>Gram-neg ative pattie - Cattle Shipper species </td></tr></tbody>< /table>
<table border="2"><tbody>< tr><td></td><td>1</ td><td>2</td><td>3< /td><td>4</td></tr> <tr><td>Comment</td ><td></td><td></td> <td></td><td></td>< /tr><tr><td>Result Value</td><td>COAGU LASE NEGATIVE STAPHYLOCOCCUS </td><td>Gram-negat marychuy pattie - Cattle Shipper species </td><td>Gram-negat marychuy pattie - Cattle Shipper species </td><td>Gram-negat marychuy pattie - Cattle Shipper species </td></tr><tr><td>R esult Status</td><td>Kina l Result</td><td>Kina l Result</td><td>Kina l Result</td><td>Kina l Result</td></tr><tr ><td></td><td></td> <td></td><td></td>< td></td></tr></tbod y></table></item> UNK <item><content [facility] styleCode="Bold">Cu Medical Ce nter lture Status </content>
<tab le><tbody><tr><td>S pecimen Number:</td><td>[id number]</td></tr><tr ><td>Sample Collection Date/Time: </td><td>11/10/2019 1:19 AM</td></tr><tr><td >Specimen Source:</td><td>URI NE</td></tr><tr><td >Culture Status:</td><td>Fin al </td></tr><tr><td>C ulture Report:</td><td>PLE ASE REPEAT SPECIMEN COLLECTION </td></tr><tr><td>U rine Culture:</td><td>Co llection Plate Date: 11/10/2019 01:38 </td></tr><tr><td>O rganism 1:</td><td>COAGULAS E NEGATIVE STAPHYLOCOCCUS </td></tr><tr><td>O rganism 2:</td><td>Gram-neg ative pattie - Cattle Shipper species </td></tr><tr><td>O rganism 3:</td><td>Gram-neg ative pattie - Cattle Shipper species </td></tr><tr><td>O rganism 4:</td><td>Gram-neg ative pattie - Cattle Shipper species </td></tr></tbody>< /table>
<table border="2"><tbody>< tr><td></td><td>1</ td><td>2</td><td>3< /td><td>4</td></tr> <tr><td>Comment</td ><td></td><td></td> <td></td><td></td>< /tr><tr><td>Result Value</td><td>COAGU LASE NEGATIVE STAPHYLOCOCCUS </td><td>Gram-negat marychuy pattie - Cattle Shipper species </td><td>Gram-negat marychuy pattie - Cattle Shipper species </td><td>Gram-negat marychuy pattie - Cattle Shipper species </td></tr><tr><td>R esult Status</td><td>Kina l Result</td><td>Kina l Result</td><td>Kina l Result</td><td>Kina l Result</td></tr><tr ><td></td><td></td> <td></td><td></td>< td></td></tr></tbod y></table></item> ID Date Data Source [facility].[id number] 11/10/2019 01:19:00 AM EDT [facility] -0400 Name Value Range Interpretation Description Data Sup porting Code Source(s) Document(s ) Cannabinoids <content Saint [Presence] in styleCode="Shane [facility] Urine by Screen d">Cannabinoid Medical method >50 ng/mL s Center </content>NEGA TIVE NG/ML (Reference Range: not available)<br/ > ID Date Data Source [facility].[id number] 11/10/2019 12:41:00 AM EDT [facility] -0400 Name Value Range Interpretation Code Description Data Adelita rce(s) Supporting Document(s ) UNK NEGATIVE <content [facility] styleCode="Bold" Medical Cente r >Acetone </content>NEGATI VE <content styleCode="Itali cs"> (NEGATIVE )</content> ID Date Data Source Liver 11/10/2019 12:30:00 AM EDT [facility] Profile.[id number] Name Value Range Interpretation Description Data Sup [...] (0.2-1.3 MG/DL)</content> UNK 0.0-0.3 <content Saint styleCode="Bold"> [facility] Bilirubin, Direct Medical </content>< 0.2 Center MG/DL<content styleCode="Italic s"> (0.0-0.3 MG/DL)</content> ID Date Data Source HematologyRou.[id number] 11/10/2019 12:30:00 AM EDT [facility] 0400 Name Value Range Interpretation [...] (0.0 KCUMM)</content > ID Date Data Source GFR(Creatinine).[id number] 11/10/2019 12:30:00 AM EDT [facility] 0-0400 Name Value Range Interpretation Code Description Data Adelita rce(s) Supporting Document(s ) UNK > 60 Below low normal <content [facility] styleCode="Bold"> Medical Cent er EGFR </content>36 GFR L<content styleCode="Italic s"> (> 60 GFR)</content> ID Date Data Source BMP.[id number] 11/10/2019 12:30:00 AM EDT [facility] Name Value Range Interpretation Description Data Sup porting Code Source(s) Document(s ) Sodium 137-145 Below low <content Saint [Moles/volume] in normal styleCode="Bold"> [facility] Serum or Plasma Sodium Medical </content>131 Center MEQ/L L<content styleCode="Italic s"> (137-145 MEQ/L)</content> Chloride 98-107 Below low <content [facility] [Moles/volume] in normal styleCode="Bold"> [facility] Serum or Plasma Chloride Medical </content>93 Center MEQ/L L<content styleCode="Italic s"> (98-107 MEQ/L)</content> Potassium 3.5-5.3 <content [facility] [Moles/volume] in styleCode="Bold"> [facility] Serum or Plasma Potassium Medical [...] s"> (0.2-1.3 MG/DL)</content> ID Date Data Source [id number] 10/21/2019 09:05:00 AM EDT [facility] Name Value Range Interpretation Description Data Sup porting Code Source(s) Document(s ) SARS [facility] coronavirus 2 RNA This lab was ordered by [facility] and reported by [facility]. ID Date Data Source [id number] 09/16/2019 01:31:00 AM EDT [facility] Name Value Range Interpretation Description Data Sup porting Code Source(s) Document(s ) [facility] This lab was ordered by Paulette hartman/Wang and reported by [facility]. ID Date Data Source [id number] 09/14/2019 03:12:00 AM EDT [facility] Name Value Range Interpretation Description Data Sup porting Code Source(s) Document(s ) SARS [facility] coronavirus 2 RNA This lab was ordered by [facility] and reported by [facility]. ID Date Data Source GFR(Creatinine).[id number] 09/13/2019 12:25:00 PM EDT [facility] 0-0400 Name Value Range Interpretation Code Description Data Adelita rce(s) Supporting Document(s ) UNK > 60 Below low normal <content [facility] styleCode="Bold"> Medical Cent er EGFR </content>43 GFR L<content styleCode="Italic s"> (> 60 GFR)</content> ID Date Data Source [facility].[id number] 09/13/2019 12:25:00 PM EDT [facility] Name Value Range Interpretation Description Data Sup porting Code Source(s) Document(s ) Potassium 3.5-5.3 <content [facility] [Moles/volume] styleCode="Shane Agustin in Serum or d">Potassium Medical Plasma </content>5.0 [...] Maganas in Serum or d">Calcium Medical Plasma </content>8.8 Center MG/DL<content styleCode="Iva lics"> (8.4-10.2 MG/DL)</conten t> UNK > 60 Below low normal <content Saint styleCode="Shane Maganas d">EGFR Medical </content>43 Center GFR L<content styleCode="Iva lics"> (> 60 GFR)</content> ID Date Data Source Liver 09/13/2019 06:30:00 AM EDT [facility] Profile.[id number] Name Value Range Interpretation Description Data Sup [...] s"> (0.2-1.3 MG/DL)</content> ID Date Data Source HematologyRou.[id number] 09/13/2019 06:30:00 AM EDT [facility] 0400 Name Value Range Interpretation [...] (0.0 KCUMM)</content > ID Date Data Source CHMROUTINECCDA.[id number] 09/13/2019 06:30:00 AM EDT [facility] -0400 Name Value Range Interpretation [...] (6.3-8.2 G/DL)</content > ID Date Data Source [facility].[id number] 09/13/2019 06:30:00 AM EDT [facility] Name Value Range Interpretation Description Data [...] Data Source Liver 09/11/2019 06:50:00 AM EDT [facility] Profile.[id number] Name Value Range Interpretation Description Data Sup [...] s"> (3.5-5.0 G/DL)</content> ID Date Data Source HematologyRou.[id number] 09/11/2019 06:50:00 AM EDT [facility] 0400 Name Value Range Interpretation Description [...] (0.0 KCUMM)</content > ID Date Data Source CHMROUTINECCDA.[id number] 09/11/2019 06:50:00 AM EDT [facility] -0400 Name Value Range Interpretation Description Data Sup porting Code Source(s) Document(s ) UNK >= 1.0 <content Saint styleCode="Shane Maganas d">AG Ratio Medical </content>1.0 Center <content styleCode="Iva lics"> (>= 1.0 )</content> Magnesium 1.6-2.3 <content [facility] [Mass/volume] styleCode="Shane Maganas [...] (6.3-8.2 G/DL)</content > ID Date Data Source [facility].[id number] 09/11/2019 06:50:00 AM EDT [facility] Name Value Range Interpretation Description [...] Data Source Liver 09/10/2019 06:10:00 AM EDT [facility] Profile.[id number] Name Value Range Interpretation Description Data Sup [...] s"> (3.5-5.0 G/DL)</content> ID Date Data Source HematologyRou.[id number] 09/10/2019 06:10:00 AM EDT [facility] 0400 Name Value Range Interpretation Description Data Sup porting Code Source(s) Document(s ) Hemoglobin 12.3-16. Below low normal <content [facility] [Mass/volume] in 0 styleCode="Bold Agustin Blood ">Hemoglobin Medical </content>10.4 Center G/DL L<content [...] ics"> (8.0-11.0 FL)</content> ID Date Data Source CHMROUTINECCDA.[id number] 09/10/2019 06:10:00 AM EDT [facility] -0400 Name Value Range Interpretation [...] (6.3-8.2 G/DL)</content > ID Date Data Source [facility].[id number] 09/10/2019 06:10:00 AM EDT [facility] Center Name Value Range Interpretation Description Data Sup porting Code Source(s) Document(s ) Sodium 137-145 Below low <content [facility] [Moles/volume] in normal styleCode="Bold"> [facility] Serum or Plasma Sodium Medical </content>136 Center MEQ/L L<content styleCode="Italic s"> (137-145 MEQ/L)</content> Potassium 3.5-5.3 <content [facility] [Moles/volume] in styleCode="Bold"> [facility] Serum or Plasma Potassium Medical </content>3.9 Center [...] Data Source Liver 09/09/2019 06:38:00 AM EDT [facility] Profile.[id number] Name Value Range Interpretation Description Data Sup [...] s"> (3.5-5.0 G/DL)</content> ID Date Data Source HematologyRou.[id number] 09/09/2019 06:38:00 AM EDT [facility] 0400 Name Value Range Interpretation [...] (0.0 KCUMM)</content > ID Date Data Source CHMROUTINECCDA.[id number] 09/09/2019 06:38:00 AM EDT [facility] -0400 Name Value Range Interpretation [...] Maganas in Serum or d">Magnesium Medical Plasma </content>1.9 Center MG/DL<content styleCode="Iva lics"> (1.6-2.3 MG/DL)</conten t> Protein 6.3-8.2 <content [facility] [Mass/volume] styleCode="Shane Maganas in Serum or d">Total Medical Plasma Protein Center </content>6.7 G/DL<content styleCode="Iva lics"> (6.3-8.2 G/DL)</content > ID Date Data Source [facility].[id number] 09/09/2019 06:38:00 AM EDT [facility] Center Name Value Range Interpretation Description [...] Data Source Liver 09/08/2019 06:03:00 AM EDT [facility] Profile.[id number] Name Value Range Interpretation Description Data Sup [...] s"> (3.5-5.0 G/DL)</content> ID Date Data Source HematologyRou.[id number] 09/08/2019 06:03:00 AM EDT [facility] 0400 Name Value Range Interpretation [...] low normal <content Saint [Volume 0 styleCode="Bold [facility] Fraction] of ">Hematocrit Medical Blood by [...] Date Data Source Coagulation 09/08/2019 06:03:00 AM [facility] Rout.[id number] EDT Name Value Range Interpretation Description Data Sup porting Code Source(s) Document(s ) UNK 9.0-13.0 <content Saint styleCode="Bold" Agustin >Protime Medical </content>11.9 Center SEC<content styleCode="Itali cs"> (9.0-13.0 SEC)</content> INR in 0.80-1.2 <content Saint Platelet poor 0 styleCode="Bold" [facility] plasma by >INR Medical Coagulation </content>1.07 Center assay #<content styleCode="Itali cs"> (0.80-1.20 #)</content> aPTT in 25.1-36. <content Saint Platelet poor 5 styleCode="Bold" [facility] plasma by >Partial Medical Coagulation Thromboplastin Center assay Time </content>29.8 SEC<content styleCode="Itali cs"> (25.1-36.5 SEC)</content> ID Date Data Source CHMROUTINECCDA.[id number] 09/08/2019 06:03:00 AM EDT [facility] -0400 Name Value Range Interpretation Description Data Sup porting Code Source(s) Document(s ) UNK >= 1.0 <content [facility] styleCode="Shane Agustin d">AG Ratio Medical </content>1.0 Center [...] or d">Phosphorus Medical Plasma </content>2.5 Center MG/DL<content styleCode="Via lics"> (2.5-4.5 MG/DL)</conten t> ID Date Data Source Urinalysis.[id number] 09/07/2019 09:15:00 AM EDT [facility] 0 Name Value Range Interpretation Description Data Sup porting Code Source(s) Document(s ) Color of Urine YELLOW <content Saint styleCode="Shane Maganas d">Color, Medical Urine Center </content>YELL OW <content styleCode="Iva lics"> (YELLOW )</content> UNK CLEAR <content Saint styleCode="Shane Maganas d">Urine Medical Clarity Center </content>GEENA R <content styleCode="Iva lics"> (CLEAR )</content> Glucose NEGATIVE <content Saint [Mass/volume] styleCode="Shane Velez in Urine by d">Urine Medical Test strip Glucose Center </content>>=10 00 MG/DL<content styleCode="Iva lics"> (NEGATIVE MG/DL)</conten t> UNK NEGATIVE <content Saint styleCode="Shane Maganas d">Urine Medical Bilirubin Center </content>NEGA TIVE <content styleCode="Iva lics"> (NEGATIVE )</content> Ketones NEGATIVE <content Saint [Mass/volume] styleCode="Shane Velez in Urine by d">Urine Medical Test strip Ketone Center </content>NEGA TIVE MG/DL<content styleCode="Iva lics"> (NEGATIVE MG/DL)</conten t> Specific 1.015-1.02 <content Saint gravity of 5 styleCode="Shane Velez Urine by Test d">Urine Medical strip Specific Center [place] </content>1.01 5 <content styleCode="Iva lics"> (1.015-1.025 )</content> Hemoglobin NEGATIVE <content Saint [Presence] in styleCode="Shane Velez Urine by Test d">Urine Blood Medical strip </content>SMAL Center L <content styleCode="Iva lics"> (NEGATIVE )</content> Protein NEGATIVE <content Saint [Mass/volume] styleCode="Shane Maganas in Urine by d">Urine Medical Test strip Protein Center </content>100 MG/DL<content styleCode="Iva lics"> (NEGATIVE MG/DL)</conten t> pH of Urine by 4.5-8.0 <content Saint Test strip styleCode="Shaen Agustin d">Urine pH Medical </content>6.0 Center <content [...] (NONE SEEN LPF)</content> ID Date Data Source GFR(Creatinine).[id number] 09/07/2019 06:10:00 AM EDT [facility] 0-0400 Name Value Range Interpretation Code Description Data Adelita rce(s) Supporting Document(s ) UNK > 60 <content [facility] styleCode="Bold"> Medical Cent er EGFR </content>66 GFR<content styleCode="Italic s"> (> 60 GFR)</content> ID Date Data Source Coagulation 09/07/2019 06:10:00 AM [facility] Rout.[id number] EDT Name Value Range Interpretation Code Description Data Adelita rce(s) Supporting Document(s ) UNK < 500 Above upper panic <content [facility] limits styleCode="Bold"> Medical Cent er D-Dimer </content><conten t styleCode="Bold"> 813 ngFEU HH</content><cont ent styleCode="Italic s"> (< 500 ngFEU)</content> ID Date Data Source GFR(Creatinine).[id number] 09/06/2019 10:50:00 PM EDT [facility] 0-0400 Name Value Range Interpretation Code Description Data Adelita rce(s) Supporting Document(s ) UNK > 60 Below low normal <content [facility] styleCode="Bold"> Medical Cent er EGFR </content>58 GFR L<content styleCode="Italic s"> (> 60 GFR)</content> ID Date Data Source GFR(Creatinine).[id number] 09/06/2019 06:15:00 PM EDT [facility] 0-0400 Name Value Range Interpretation Code Description Data Adelita rce(s) Supporting Document(s ) UNK > 60 Below low normal <content Saint Velez styleCode="Bold"> Medical Cent er EGFR </content>58 GFR L<content styleCode="Italic s"> (> 60 GFR)</content> ID Date Data Source [facility].[id number] 09/06/2019 06:15:00 PM EDT [facility] Name Value Range Interpretation Description [...] Agustin in Serum or d">Calcium Medical Plasma </content>8.9 [...] (> 60 GFR)</content> ID Date Data Source GFR(Creatinine).[id number] 09/06/2019 01:55:00 PM EDT [facility] 0-0400 Name Value Range Interpretation Code Description Data Adelita rce(s) Supporting Document(s ) UNK > 60 Below low normal <content [facility] styleCode="Bold"> Medical Cent er EGFR </content>58 GFR L<content styleCode="Italic s"> (> 60 GFR)</content> ID Date Data Source Coagulation 09/06/2019 01:55:00 PM [facility] Rout.[id number] EDT Name Value Range Interpretation Code Description Data Adelita rce(s) Supporting Document(s ) UNK < 500 Above upper panic <content [facility] limits styleCode="Bold"> Medical Cent er D-Dimer </content><conten t styleCode="Bold"> 1286 ngFEU HH</content><cont ent styleCode="Italic s"> (< 500 ngFEU)</content> ID Date Data Source BMP.[id number] 09/06/2019 01:55:00 PM EDT [facility] Name Value Range Interpretation Description Data Sup porting Code Source(s) Document(s ) Sodium 137-145 Below low normal <content Saint [Moles/volume] styleCode="Shane Agustin in Serum or d">Sodium Medical Plasma </content>129 [...] (74-106 MG/DL)</conten t> ID Date Data Source GFR(Creatinine).[id number] 09/06/2019 01:10:00 PM EDT [facility] 0-0400 Name Value Range Interpretation Code Description Data Adelita rce(s) Supporting Document(s ) UNK <content [facility] styleCode="Bold"> Medical Cent er EGFR </content>Test not performed. GFR (Reference Range: not available)
ID Date Data Source CHMROUTINECCDA.[id number] 09/06/2019 01:10:00 PM EDT [facility] -0400 Name Value Range Interpretation Description Data Sup porting Code Source(s) Document(s ) Lactate 0.7-2.0 <content [facility] Agustin [Mass/volum styleCode="Bold Medical e] in Serum ">Lactic Acid Center or Plasma </content>1.5 MMOLL<content styleCode="Ital ics"> (0.7-2.0 MMOLL)</content > ID Date Data Source [facility].[id number] 09/06/2019 01:10:00 PM EDT [facility] Name Value Range Interpretation Description Data [...] Range: not available)
ID Date Data Source Urinalysis.[id number] 09/06/2019 11:30:00 AM EDT [facility] 0 Name Value Range Interpretation Description Data Sup porting Code Source(s) Document(s ) Color of Urine YELLOW <content Saint styleCode="Shane Agustin d">Color, Medical Urine Center </content>YELL OW <content styleCode="Iva lics"> (YELLOW )</content> UNK CLEAR <content Saint styleCode="Shane Agustin d">Urine Medical Clarity Center </content>GEENA R <content [...] by Test d">Urine Medical strip Specific Center [place] </content>1.01 0 L<content styleCode="Iva lics"> (1.015-1.025 )</content> Hemoglobin NEGATIVE <content Saint [Presence] in styleCode="Shane Maganas Urine by Test d">Urine Blood Medical strip </content>TRAC Center E <content styleCode="Iva lics"> (NEGATIVE )</content> Protein NEGATIVE <content Saint [Mass/volume] styleCode="Shane Agustin in [...] lics"> (0.2-1.0 MG/DL)</conten t> Nitrite NEGATIVE <content [Presence] in styleCode="Shane Velez Urine by Test d">Urine Medical strip Nitrite Center </content>POSI TIVE <content styleCode="Iva lics"> (NEGATIVE )</content> Leukocyte NEGATIVE <content Saint esterase styleCode="Shane Velez [Presence] in d">Urine Medical Urine by Test Leukocyte Center strip </content>NEGA TIVE <content styleCode="Iva lics"> (NEGATIVE )</content> UNK 0-3 <content Saint styleCode="Shane Maganas d">Urine Red Medical Blood Cell Center </content>0-3 HPF<content styleCode="Iva lics"> (0-3 HPF)</content> UNK 0-3 <content Saint styleCode="Shane Maganas d">Urine White Medical Blood Cell Center </content>0-3 HPF<content styleCode="Iva lics"> (0-3 HPF)</content> UNK NONE SEEN <content Saint styleCode="Shane Maganas d">Epithelial Medical Cell Center </content>2-5 HPF<content styleCode="Iva lics"> (NONE SEEN HPF)</content> UNK NEGATIVE <content Saint styleCode="Shane Maganas d">Urine Medical Bacteria Center </content>MANY HPF<content styleCode="Iva lics"> (NEGATIVE HPF)</content> ID Date Data Source LIPID.[id number] 09/06/2019 05:43:00 AM EDT [facility] Name Value Range Interpretation Description [...] medically appropriate.</con tent> ID Date Data Source CardiacMarkers.[id number] 09/06/2019 05:43:00 AM EDT [facility] -0400 Name Value Range Interpretation Description Data Sup porting Code Source(s) Document(s ) Troponin < 0.034 <content Saint I.cardiac styleCode="Bold Agustin [Mass/volume ">Troponin I Medical ] in Serum </content>< Center or Plasma 0.012 NG/ML<content styleCode="Ital ics"> (< 0.034 NG/ML)</content > ID Date Data Source GFR(Creatinine).[id number] 09/06/2019 05:43:00 AM EDT [facility] 0-0400 Name Value Range Interpretation Code Description Data Adelita rce(s) Supporting Document(s ) UNK > 60 Below low normal <content Agustin styleCode="Bold"> Medical Cent er EGFR </content>47 GFR L<content styleCode="Italic s"> (> 60 GFR)</content> ID Date Data Source BMP.[id number] 09/06/2019 05:43:00 AM EDT [facility] Name Value Range Interpretation Description Data [...] (> 60 GFR)</content> ID Date Data Source CardiacMarkers.[id number] 09/06/2019 12:52:00 AM EDT [facility] -0400 Name Value Range Interpretation Description Data Sup porting Code Source(s) Document(s ) Troponin < 0.034 <content Saint I.cardiac styleCode="Bold Agustin [Mass/volume ">Troponin I Medical ] in Serum </content>< Center or Plasma 0.012 NG/ML<content styleCode="Ital ics"> (< 0.034 NG/ML)</content > ID Date Data Source HematologyRou.[id number] 09/06/2019 12:52:00 AM EDT [facility] 0400 Name Value Range Interpretation [...] ics"> (1.6-4.9 %)</content> ID Date Data Source GFR(Creatinine).[id number] 09/06/2019 12:52:00 AM EDT [facility] 0-0400 Name Value Range Interpretation Code Description Data Adelita rce(s) Supporting Document(s ) UNK > 60 Below low normal <content [facility] styleCode="Bold"> Medical Cent er EGFR </content>52 GFR L<content styleCode="Italic s"> (> 60 GFR)</content> ID Date Data Source CHMROUTINECCDA.[id number] 09/06/2019 12:52:00 AM EDT [facility] -0400 Name Value Range Interpretation Description Data Sup porting Code Source(s) Document(s ) Natriuretic < 125 Above high normal <content Saint peptide.B styleCode="Shane Agustin prohormone d">NT Pro BNP Medical N-Terminal </content>435 Center [Mass/volume] PG/ML in Serum or H<content Plasma styleCode="Iva lics"> (< 125 PG/ML)</conten t> ID Date Data Source [facility].[id number] 09/06/2019 12:52:00 AM EDT [facility] Name Value Range Interpretation Description Data [...] 98-107 Below low normal <content Saint [Moles/volume] styleCode="Sahne Agustin in Serum or d">Chloride Medical Plasma </content>92 Center MEQ/L L<content styleCode="Iva lics"> (98-107 MEQ/L)</conten t> UNK 7-17 Above high normal <content Saint styleCode="Shane Agustin d">BUN Medical </content>27 Center MG/DL H<content styleCode="Iav lics"> (7-17 MG/DL)</conten t> Creatinine 0.5-1.3 <content [...] (8.4-10.2 MG/DL)</conten t> ID Date Data Source [id number] 09/06/2019 12:00:00 AM EDT [facility] Name Value Range Interpretation Code Description Data Adelita rce(s) Supporting Document(s ) 2019-nCoV [facility] RNA XXX KENNY+probe- Imp This lab was ordered by [facility] and reported by [employer]. ID Date Data Source [id number] 08/22/2019 09:50:00 PM EDT [facility] Name Value Range Interpretation Description Data Sup porting Code Source(s) Document(s ) SARS [facility] coronavirus 2 RNA This lab was ordered by [facility] and reported by [facility]. Procedure Social History Code Duration Value Status Description Data Source(s ) Caffeine Use 11/14/2019 completed NEXTGEN ([facility] nt Details 12:00:00 AM EDT [facility]) Smoking 11/14/2019 Unknown if completed Unknown if ever NEXTGEN ( [facility] 12:00:00 AM EDT ever smoked [facility]) Smoking 11/10/2019 Daily Smoker completed Daily Smoker [facility] 10:45:00 AM EDT Medical C enter Smoking 11/09/2019 Daily Smoker completed Daily Smoker [facility] 11:13:00 PM EDT Medical C enter Smoking 11/09/2019 Daily Smoker completed Daily Smoker [facility] 10:53:00 PM EDT Medical C enter Smoking 09/06/2019 Denies Ever completed Denies Ever [facility] 01:47:00 PM EDT Smoked Smoked Medical C enter Smoking 09/06/2019 Daily Smoker completed Daily Smoker [facility] 08:36:00 AM EDT Medical C enter Smoking 09/05/2019 Daily Smoker completed Daily Smoker [facility] 11:00:00 PM EDT Medical C enter Smoking 09/05/2019 Daily Smoker completed Daily Smoker [facility] 10:45:00 PM EDT Medical C enter Smoking 09/05/2019 Daily Smoker completed Daily Smoker [facility] 09:17:00 PM EDT Medical C enter Caffeine Use 03/03/2019 completed NEXTGEN ([facility] nt Details 12:00:00 AM [facility]) Vital Signs ID Date Data Source UNK Name Value Range Interpretation Code Description Data Source(s) Body temperature 36.288449 36.689754 [facility] Respiratory rate 20 /min 20 /min [facility] Heart rate 102 /min 102 /min [facility] Diastolic blood 54 mm[Hg] 54 mm[Hg] [facility] Systolic blood 89 mm[Hg] 89 mm[Hg] [facility] Body temperature 36.271552 36.093289 [facility] Respiratory rate 18 /min 18 /min [facility] Heart rate 109 /min 109 /min [facility] Diastolic blood 57 mm[Hg] 57 mm[Hg] [facility] Systolic blood 105 mm[Hg] 105 mm[Hg] [facility] Body temperature 36.151128 36.078469 [facility] Respiratory rate 20 /min 20 /min [facility] Heart rate 107 /min 107 /min [facility] Diastolic blood 57 mm[Hg] 57 mm[Hg] [facility] Systolic blood 122 mm[Hg] 122 mm[Hg] [facility] Body temperature 36.205630 36.452609 [facility] Respiratory rate 20 /min 20 /min [facility] Heart rate 102 /min 102 /min [facility] Diastolic blood 57 mm[Hg] 57 mm[Hg] [facility] Systolic blood 111 mm[Hg] 111 mm[Hg] [facility] Body temperature 36.570572 36.248727 [facility] Respiratory rate 20 /min 20 /min [facility] Heart rate 101 /min 101 /min [facility] Diastolic blood 61 mm[Hg] 61 mm[Hg] [facility] Systolic blood 108 mm[Hg] 108 mm[Hg] [facility] Body temperature 36.419325 36.236947 [facility] Respiratory rate 20 /min 20 /min [facility] Heart rate 97 /min 97 /min [facility] Diastolic blood 52 mm[Hg] 52 mm[Hg] [facility] pressure Medical Center Systolic blood 86 mm[Hg] 86 mm[Hg] [facility] [place] Body temperature 36.310861 36.431372 [facility] Center Heart rate 99 /min 99 /min [facility] Diastolic blood 46 mm[Hg] 46 mm[Hg] [facility] Systolic blood 96 mm[Hg] 96 mm[Hg] [facility] Body temperature 36.280097 36.351583 [facility] Respiratory rate 20 /min 20 /min [facility] Heart rate 95 /min 95 /min [facility] Diastolic blood 66 mm[Hg] 66 mm[Hg] [facility] Systolic blood 114 mm[Hg] 114 mm[Hg] [facility] Body temperature 37.450403 37.835194 [facility] Respiratory rate 20 /min 20 /min [facility] Heart rate 106 /min 106 /min [facility] Diastolic blood 56 mm[Hg] 56 mm[Hg] [facility] Systolic blood 100 mm[Hg] 100 mm[Hg] [facility] Body weight 65.987465 kg 65.331835 kg [facility] Medical [place] Body height 162.281466 162.638990 cm [facility] Body mass index 24.79 kg/m2 24.79 kg/m2 [facility] (BMI) [Ratio] Medical [address] Body temperature 36.478193 36.396093 [facility] Respiratory rate 18 /min 18 /min [facility] Heart rate 103 /min 103 /min [facility] Diastolic blood 72 mm[Hg] 72 mm[Hg] [facility] Systolic blood 129 mm[Hg] 129 mm[Hg] [facility] Oxygen saturation 98 % 98 % [facility] Arterial blood Medical Center by Pulse oximetry Respiratory rate 18 /min 18 /min [facility] Oxygen saturation 98 % 98 % [facility] Arterial blood Medical Center by Pulse oximetry Oxygen saturation 99 % 99 % [facility] Arterial blood Medical Center by Pulse oximetry Body weight 63.880292 kg 63.466484 kg [facility] Measured Medical Center Oxygen saturation 98 % 98 % [facility] in [facility] blood [facility] Center by Pulse oximetry Body height 162.868245 162.934315 cm [facility] Center Body mass index 24.0 kg/m2 24.0 kg/m2 [facility] (BMI) [Ratio] Medical [address] Oxygen saturation 98 % 98 % [facility] blood [facility] by Pulse oximetry Body temperature 36.095963 36.341429 [facility] Respiratory rate 18 /min 18 /min [facility] Heart rate 100 /min 100 /min [facility] Diastolic blood 58 mm[Hg] 58 mm[Hg] [facility] Systolic blood 115 mm[Hg] 115 mm[Hg] [facility] Body temperature 36.803885 36.975160 [facility] Respiratory rate 20 /min 20 /min [facility] Heart rate 87 /min 87 /min [facility] Diastolic blood 52 mm[Hg] 52 mm[Hg] [facility] Systolic blood 104 mm[Hg] 104 mm[Hg] [facility] Center Oxygen saturation 96 % 96 % [facility] in [facility] by Pulse oximetry Body temperature 36.360398 36.464377 [facility] Respiratory rate 18 /min 18 /min [facility] Heart rate 80 /min 80 /min [facility] Diastolic blood 65 mm[Hg] 65 mm[Hg] [facility] Systolic blood 132 mm[Hg] 132 mm[Hg] [facility] Body temperature 37.791015 37.748903 [facility] Respiratory rate 18 /min 18 /min [facility] Heart rate 91 /min 91 /min [facility] Diastolic blood 69 mm[Hg] 69 mm[Hg] [facility] Systolic blood 131 mm[Hg] 131 mm[Hg] [facility] Center Systolic blood 107 mm[Hg] 107 mm[Hg] [facility] Medical Center Body temperature 37.313861 37.929507 [facility] Respiratory rate 18 /min 18 /min [facility] Heart rate 91 /min 91 /min [facility] Diastolic blood 50 mm[Hg] 50 mm[Hg] [facility] Oxygen saturation 98 % 98 % [facility] in Arterial blood Medical Center by Pulse oximetry Oxygen saturation 100 % 100 % [facility] in Arterial blood Medical Center by Pulse oximetry Body weight 68.883162 kg 68.684784 kg [facility] Measured Medical Center Body temperature 36.230272 36.716739 [facility] Respiratory rate 13 /min 13 /min [facility] Heart rate 88 /min 88 /min [facility] Diastolic blood 58 mm[Hg] 58 mm[Hg] [facility] [place] Systolic blood 96 mm[Hg] 96 mm[Hg] [facility] [place] Respiratory rate 17 /min 17 /min [facility] Heart rate 98 /min 98 /min [facility] Diastolic blood 63 mm[Hg] 63 mm[Hg] [facility] Systolic blood 132 mm[Hg] 132 mm[Hg] [facility] [place] Body temperature 36.409276 36.068673 [facility] Respiratory rate 18 /min 18 /min [facility] Heart rate 96 /min 96 /min [facility] Diastolic blood 62 mm[Hg] 62 mm[Hg] [facility] Systolic blood 119 mm[Hg] 119 mm[Hg] [facility] Medical Center Respiratory rate 13 /min 13 /min [facility] Heart rate 96 /min 96 /min [facility] Diastolic blood 70 mm[Hg] 70 mm[Hg] [facility] pressure Medical Center Systolic blood 143 mm[Hg] 143 mm[Hg] [facility] Medical Center Body weight 70.605929 kg 70.164986 kg [facility] Measured Medical Center Oxygen saturation 100 % 100 % [facility] J osephs in Arterial blood Medical Center by Pulse oximetry Body height 154.605953 154.750945 cm [facility] Body mass index 29.16 kg/m2 29.16 kg/m2 [facility] (BMI) [Ratio] [facility] [address] Body temperature 36.400370 36.213400 [facility] Respiratory rate 14 /min 14 /min [facility] Heart rate 98 /min 98 /min [facility] Diastolic blood 61 mm[Hg] 61 mm[Hg] [facility] pressure Medical Center Systolic blood 118 mm[Hg] 118 mm[Hg] [facility] Medical Center Body temperature 36.935017 36.755357 [facility] Oxygen saturation 98 % 98 % [facility] in [facility] Center by Pulse oximetry Body temperature 36.683098 36.964744 [facility] Body weight 67.486521 kg 67.794196 kg [facility] Measured Medical Center Body height 162.868506 162.067212 cm [facility] Body mass index 25.51 kg/m2 25.51 kg/m2 [facility] (BMI) [Ratio] Medical [facility] ter Oxygen saturation 98 % 98 % [facility] in Arterial blood [facility] Center by Pulse oximetry Oxygen saturation 98 % 98 % [facility] in Arterial blood [facility] Center by Pulse oximetry Oxygen saturation 98 % 98 % [facility] in [facility] Center by Pulse oximetry Body weight 77.991738 kg 77.111117 kg [facility] Measured Medical Center Body height 162.660826 162.342014 cm [facility] Body mass index 29.1 kg/m2 29.1 kg/m2 [facility] (BMI) [Ratio] Medical [facility] ter Patient Treatment Plan of Care Planned Activity Planned Date Details Description Data Source (s) quetiapine 200 MG Oral 01/19/2019 12:00[facility]00 [facility]Seroquel[facility]) gabapentin 300 mg capsule 01/18/2019 12:00:00 NEXTGEN ([facility]) 24 HR venlafaxine 150 MG 01/18/2019 12:00:00 [facility] ([facility] Extended [facility] Oral [facility] [Effexor] Center) quetiapine 200 MG Oral 01/18/2019 12:00:00 NEXTGEN ([facility] Tablet [Seroquel] AM [facility]) quetiapine 200 MG Oral 12/27/2018 12:00:00 NEXTGEN ([facility] Tablet [Seroquel] AM [facility]) gabapentin 300 MG Oral 12/27/2018 12:00:00 NEXTGEN ([facility] Capsule AM [facility]) 24 HR venlafaxine 150 MG 12/27/2018 12:00:00 NEXTGEN ([facility] Extended Release Oral AM [facility] [Effexor] [place]) gabapentin 300 MG Oral 11/23/2018 12:00:00 NEXTGEN ([facility] Capsule AM [facility]) quetiapine 200 MG Oral 11/23/2018 12:00:00 NEXTGEN ([facility] Tablet [Seroquel] AM [facility]) 24 HR venlafaxine 150 MG 11/23/2018 12:00:00 NEXTGEN ([facility] Extended Release Oral AM [facility] [Effexor] [place]) Zolpidem tartrate 5 MG 11/23/2018 12:00:00 NEXTGEN ([facility] Oral Tablet [Ambien] AM [facility]) Hydroxyzine Hydrochloride 08/16/2018 12:00:00 NEXTGEN ([facility] 50 MG Oral Tablet AM [facility]) quetiapine 200 MG Oral 08/16/2018 12:00:00 NEXTGEN ([facility] Tablet [Seroquel] AM [facility]) 24 HR venlafaxine 150 MG 08/16/2018 12:00:00 NEXTGEN ([facility] Extended Release Oral AM [facility] [Effexor] [place]) Zolpidem tartrate 5 MG 08/16/2018 12:00:00 NEXTGEN ([facility] Oral Tablet [Ambien] AM [facility])
[2019-12-17] MEDS ORDERED: CEFTRIAXONE 1,000 MG in DEXTROSE 5%-WATER - 50 ML IVPB ONE (22:30)
[2019-12-17] MEDS ORDERED: CEFTRIAXONE 1 GM/50 ML BAG ONE (22:32)
[2019-12-17] MEDS ORDERED: Insulin (LOG) Aspart 100 UNITS/ML VIAL SQ ONE (22:46)
[2019-12-17] MEDS ORDERED: QUEtiapine FUMARATE 200 MG TABLET PO ONE (23:50)
[2019-12-18] MEDS ORDERED: QUEtiapine FUMARATE 100 MG TABLET (FP) ONE (00:13)
[2019-12-18 00:49] LABS: VENOUS BASE EXCESS -2.6 mmol/L (-2-2); VENOUS O2 SATURATION 20.6 % (70-80); VENOUS PCO2 46.7 mmHg (38-52)
[2019-12-18 01:45] LABS: ANION GAP 13 MMOL/L (8-16); BLOOD UREA NITROGEN 31.6 mg/dL (7-18); CALCIUM 8.7 mg/dL (8.5-10.1); CHLORIDE 93 mmol/L (98-107); CO2 23 mmol/L (21-32); SODIUM 129 mmol/L (136-145)
[2019-12-18 01:49] LABS: CREATININE 1.8 mg/dL (0.55-1.3)
[2019-12-18 01:54] LABS: GLUCOSE,RANDOM 405 mg/dL (74-106)
[2019-12-18 02:28] LABS: VENOUS PH 7.321 (7.310-7.410)
[2019-12-18] MEDS ORDERED: Insulin (LOG) Aspart 100 UNITS/ML VIAL SQ ONE ×2 (03:02→22:46)
[2019-12-18] MEDS: INSULIN SLIDING SCALE (NOVOLOG) 1 VIAL SQ SCH ×6 (03:36→22:56)
[2019-12-18] MEDS: SODIUM CHLORIDE 1,000 ML IV SCH (03:36)
[2019-12-18 03:49] VITALS: BMI 22.2
--- NOTE | 2019-12-18 04:50 | HP ---
Admitting History and Physical - Primary Care Physician PCP: [facility] - Admission Chief Complaint: SOB WALDRON History of Present Illness: Patient is a 69 year old female with a significant past medical history of CKD, DM2, HTN, COPD, schizoaffective disorder, depression, presenting with complaint of SOB x 4 days. She was found to have hyperglycemia, pseudohyponatremia, hyperkalemia, UTI, and sepsis likely from uti VS pna. Patient also likely having acute exacerbation of COPD. Pt states she has been feeling sob/waldron associated with chest discomfort. denies any fever/chills, n/v, le edema, leg swelling, hemoptysis, urinary symptoms. Patient endorses she has not taken her glimeperide and januvia in a long time but couldn't quantify how many days. History Source: Patient, Medical Record Limitations to Obtaining History: Clinical Condition - Past Medical History Cardiovascular: Yes: HTN Pulmonary: Yes: COPD (?) Renal/: Yes: Renal Inusuff ...: No Psych: Yes: Anxiety, Depression Musculoskeletal: Yes: Chronic low back pain Endocrine: Yes: Diabetes Mellitus - Past Surgical History Past Surgical History: Yes: Appendectomy - Smoking History Smoking history: Former smoker Have you smoked in the past 12 months: Yes Aproximately how many cigarettes per day: 5 If you are a former smoker, when did you quit?: 1 month ago - Alcohol/Substance Use Hx Alcohol Use: No History of Substance Use: reports: None - Social History ADL: Independent History of Recent Travel: No Home Medications - Allergies Allergies/Adverse Reactions: Allergies Allergy/AdvReac Type Severity Reaction Status Date / Time No Known Allergies Allergy Verified 12/09/19 13:30 - Home Medications Home Medications: Ambulatory Orders Aspirin [ASA -] 81 mg PO DAILY 09/14/19 Glimepiride 2 mg PO BID 09/14/19 Quetiapine Fumarate [Seroquel -] 200 mg PO TID 09/14/19 Simvastatin [Zocor] 20 mg PO HS 09/14/19 Sitagliptin Phosphate [Januvia] 100 mg PO DAILY 09/14/19 Venlafaxine HCl ER [Effexor Xr -] 150 mg PO DAILY 09/14/19 Walker [Ultra-Light Rollator] 1 each [facility] DAILY #1 each 09/14/19 Family Medical History Family History: Denies Review of Systems - Review of Systems Eyes: reports: No Symptoms HENT: reports: No Symptoms Neck: reports: No Symptoms Cardiovascular: reports: Chest Pain, Shortness of Breath Respiratory: reports: SOB on Exertion Genitourinary: reports: No Symptoms Physical Examination Vital Signs: Vital Signs Temperature 98.6 F 12/18/19 03:44 Pulse Rate 118 H 12/18/19 03:44 Respiratory Rate 20 12/18/19 03:44 Blood Pressure 96/50 L 12/18/19 03:44 O2 Sat by Pulse Oximetry (%) 100 12/18/19 03:55 Constitutional: Yes: No Distress, Calm Eyes: Yes: EOM Intact HENT: Yes: Other (dey oral mucosa) Neck: Yes: Supple Cardiovascular: Yes: Regular Rate and Rhythm Respiratory: Yes: CTA Bilaterally Gastrointestinal: Yes: WNL, Normal Bowel Sounds, Soft Edema: No Neurological: Yes: Alert Labs: CBC, BMP 12/17/19 20:10 12/18/19 00:40 Imaging - Results Chest X-ray: Report Reviewed, Image Reviewed Assessment/Plan Patient is a 69 year old female with a significant past medical history of CKD, DM2, HTN, COPD, schizoaffective disorder, depression, presenting with complaint of SOB x 4 days. Pt states she has been feeling sob/waldron associated with chest discomfort. denies any fever/chills, n/v, le edema, leg swellnig, hemoptysis, urinary symptoms. 69F with multiple medical problems presents with uti sepsis hyperkalemia p seudohyponatremia WALDRON and hyperglycemia. Hyperglycemia-HHS improved with subcu insulin trend BMP and AG trend glucose Restart home meds renally dosed decreased januvia to 50 from 100mg may need ICU and insulin gtt NPO IVF Endocrine consult PNA vs COPD exacerbation pulm consult Nebs PRN ceftriaxone HTN restart meds CKD trend Cr and BUN renally dose all meds Psych: restart effexor and seroquel EKG ordered for QT assessment. patient takes around 800mg of seroquel over the course of a day. Visit type - Medication Review Med list reviewed for High Risk Meds patients 65 and older: Yes - Emergency Visit Emergency Visit: Yes ED Registration Date: 12/17/19 Care time: The patient presented to the Emergency Department on the above date and was hospitalized for further evaluation of their emergent condition. - New Patient This patient is new to me today: Yes Date on this admission: 12/17/19 - Critical Care Critical Care patient: No
[2019-12-18] MEDS: HEPARIN NA (PORCINE) 5,000 UNITS/ML 1ML VIAL SQ SCH ×3 (06:22→21:31)
[2019-12-18] MEDS: QUEtiapine FUMARATE 200 MG TABLET PO SCH ×3 (06:22→21:34)
[2019-12-18] MEDS: sitaGLIPtin PHOSPHATE 50 MG TABLET PO SCH (06:22)
[2019-12-18] MEDS ORDERED: Insulin (LOG) Aspart 100 UNITS/ML VIAL SQ SCH (07:00)
[2019-12-18] MEDS ORDERED: GLIMEPIRIDE 2 MG TABLET PO SCH (07:00)
[2019-12-18 08:07] LABS: HEMOGLOBIN 11.1 GM/dL (10.7-15.3); MCH 28.4 pg (25.7-33.7); MCHC 32.5 g/dl (32.0-36.0); MEAN CELL VOLUME 87.3 fl (80-96); MEAN PLT VOLUME 8.3 fl (7.5-11.1); PLATELET COUNT 197 K/MM3 (134-434); RBC 3.89 M/mm3 (3.60-5.2); RDW 13.4 % (11.6-15.6); WHITE BLOOD COUNT 12.3 K/mm3 (4.0-10.0)
[2019-12-18 08:32] LABS: PHOSPHOROUS 1.8 mg/dL (2.5-4.9)
--- NOTE | 2019-12-18 09:13 | PN ---
Progress Note, Physician History of Present Illness: 69 year old female with a significant past medical history of CKD, DM2, HTN, COPD, schizoaffective disorder, depression, presenting with complaint of SOB x 4 days - Current Medication List Current Medications: Active Medications Aspirin (Asa -) 81 mg PO DAILY [facility] Atorvastatin Calcium (Lipitor -) 10 mg PO HS [facility] Glimepiride (Amaryl -) 2 mg PO BIDAC [facility] Last Admin: 12/18/19 06:22 Dose: 2 mg Documented by: Heparin Sodium (Porcine) (Heparin -) 5,000 unit SQ TID [facility] Last Admin: 12/18/19 06:22 Dose: 5,000 unit Documented by: Sodium Chloride (Normal Saline -) 1,000 mls @ 100 mls/hr IV ASDIR [facility] Last Admin: 12/18/19 03:36 Dose: 100 mls/hr Documented by: Insulin Aspart (Novolog Vial Sliding Scale -) 1 vial SQ Q4H [facility]; Protocol Last Admin: 12/18/19 06:36 Dose: 4 units Documented by: Quetiapine Fumarate (Seroquel -) 200 mg PO TID [facility] Last Admin: 12/18/19 06:22 Dose: 200 mg Documented by: Sitagliptin Phosphate (Januvia -) 50 mg PO ACBK [facility] Last Admin: 12/18/19 06:22 Dose: 50 mg Documented by: Venlafaxine HCl (Effexor Xr -) 150 mg PO DAILY [facility] - Objective Vital Signs: Vital Signs Temperature 98.6 F 12/18/19 03:44 Pulse Rate 118 H 12/18/19 03:44 Respiratory Rate 20 12/18/19 03:44 Blood Pressure 96/50 L 12/18/19 03:44 O2 Sat by Pulse Oximetry (%) 100 12/18/19 03:55 Cardiovascular: Yes: Regular Rate and Rhythm Respiratory: Yes: Regular, CTA Bilaterally Gastrointestinal: Yes: Normal Bowel Sounds, Soft. No: Tenderness Labs: CBC, BMP 12/18/19 06:30 12/18/19 00:40 Problem List - Problems (1) DKA (diabetic ketoacidoses) Assessment/Plan: Start levemir ss ivf endo consult a1c Code(s): E11.10 - TYPE 2 DIABETES MELLITUS WITH KETOACIDOSIS WITHOUT COMA Qualifiers: Diabetes mellitus type: type 2 Diabetes mellitus complication detail: without coma Qualified Code(s): E11.10 - Type 2 diabetes mellitus with ketoacidosis without coma (2) Leukocytosis Assessment/Plan: Maybe reactive r/o uti-bacteremia cultures iv abx id consult Code(s): D72.829 - ELEVATED WHITE BLOOD CELL COUNT, UNSPECIFIED (3) Hyperglycemia Assessment/Plan: as above Code(s): R73.9 - HYPERGLYCEMIA, UNSPECIFIED (4) COPD (chronic obstructive pulmonary disease) Assessment/Plan: pulm consult Code(s): J44.9 - CHRONIC OBSTRUCTIVE PULMONARY DISEASE, UNSPECIFIED (5) Dyspnea Assessment/Plan: maybe due to above monitor cxr nad Code(s): R06.00 - DYSPNEA, UNSPECIFIED
[2019-12-18] MEDS: ASPIRIN 81 MG CHEWABLE TABLETS PO SCH (10:22)
[2019-12-18] MEDS: VENLAFAXINE HCL 75 MG E.R. CAPSULES PO SCH (10:22)
--- NOTE | 2019-12-18 10:22 | EKG ---
Test Reason : Blood Pressure : / mmHG Vent. Rate : 092 BPM Atrial Rate : 092 BPM P-R Int : 134 ms QRS Dur : 082 ms QT Int : 338 ms P-R-T Axes : 073 060 039 degrees QTc Int : 417 ms NORMAL SINUS RHYTHM CANNOT RULE OUT ANTERIOR INFARCT (CITED ON OR BEFORE 26-JAN-2019) ABNORMAL ECG WHEN COMPARED WITH ECG OF 21-OCT-2019 00:50, NO SIGNIFICANT CHANGE WAS FOUND Confirmed by MD ALEJANDRO, HUSEYIN ([id number]) on 12/18/2019 10:22:04 AM Referred By: Confirmed By:HUSEYIN ALLEN MD
[2019-12-18] MEDS: INSULIN (LEVEMIR) 100 UNITS/ML UNITS SQ SCH ×2 (10:23→21:33)
--- NOTE | 2019-12-18 10:26 | PN ---
Progress Note (short form) - Note Progress Note: PULMONARY CONSULTATION DICTATED 12/18/19 IMP DYSPNEA COPD WITH ACUTE EXACERBATION HYPERGLYCEMIA POORLY CONTROLLED DM ACUTE ON CKD HTN SCHIZOAFFECTIVE DISORDER HYPONATREMIA PLAN SUPPLEMENTAL O2 INHALED BRONCHODILATORS GLYCEMIC CONTROL IVF MONITOR LYTES,NA,GLUCOSE LOW DOSE CHEST CT FOR LUNG CANCER SCREENING OUTPATIENT PFTS DR RUSSELL Problem List - Problems (1) Hyperglycemia Code(s): R73.9 - HYPERGLYCEMIA, UNSPECIFIED (2) Leukocytosis Code(s): D72.829 - ELEVATED WHITE BLOOD CELL COUNT, UNSPECIFIED (3) CKD (chronic kidney disease) Code(s): N18.9 - CHRONIC KIDNEY DISEASE, UNSPECIFIED (4) Diabetes Code(s): E11.9 - TYPE 2 DIABETES MELLITUS WITHOUT COMPLICATIONS Qualifiers: Diabetes mellitus type: type 2 (5) Dyspnea Code(s): R06.00 - DYSPNEA, UNSPECIFIED (6) Dyspnea on exertion Code(s): R06.09 - OTHER FORMS OF DYSPNEA (7) HTN (hypertension) Code(s): I10 - ESSENTIAL (PRIMARY) HYPERTENSION (8) Schizoaffective disorder, chronic condition Code(s): F25.9 - SCHIZOAFFECTIVE DISORDER, UNSPECIFIED (9) COPD exacerbation Code(s): J44.1 - CHRONIC OBSTRUCTIVE PULMONARY DISEASE W (ACUTE) EXACERBATION (10) COPD (chronic obstructive pulmonary disease) Code(s): J44.9 - CHRONIC OBSTRUCTIVE PULMONARY DISEASE, UNSPECIFIED
[2019-12-18] MEDS ORDERED: INSULIN (NOVOLOG) ASPART 100 UNITS/ML 10ML VIAL ONE ×2 (13:43→18:09)
[2019-12-18] MEDS: BUDESONIDE/FORMETEROL FUMARATE 160/4.5 mcg INHALER IH SCH ×2 (14:25→21:35)
--- NOTE | 2019-12-18 14:37 | PN ---
Progress Note (short form) - Note Progress Note: ID CONSULT DICTATED ACUTE EXACERBATION COPD UNCONTROLLED DM CKD AWAIT URINE C/S CONTINUE [id number]
[2019-12-18] MEDS ORDERED: cefTRIAXone SODIUM 1 GM VIAL ONE (14:49)
[2019-12-18] MEDS ORDERED: DEXTROSE 5%-WATER - 50 ML IVPB ONE (14:49)
[2019-12-18] MEDS: CEFTRIAXONE 1 GM in DEXTROSE 5%-WATER - 50 ML IVPB SCH (14:52)
--- NOTE | 2019-12-18 16:11 | CONS ---
PULMONARY CONSULTATION DATE OF CONSULTATION: 12/18/2019 REFERRING PHYSICIAN: Jeffrey Kc MD HISTORY OF PRESENT ILLNESS: Patient is a 69-year-old female with past medical history of chronic kidney disease, diabetes mellitus, hypertension, COPD, schizoaffective disorder, depression admitted to [facility] on December 16 with complaint of 4-day history increasing shortness of breath. On admission she was noted to be hyperglycemic, serum sodium and hyponatremic and hyperkalemic as well as was felt to have a UTI and probably sepsis from possible UTI. She states that she was on inhalers bronchodilators in the past, but has not used them in over 2 months. She denies any chest pains or palpitations. Denied any nausea, vomiting or diaphoresis. Denies any fevers or chills. Denies hemoptysis. On admission she was started on inhaled bronchodilators and insulin was administered. Patient denies any history of occupational exposure to chemicals or fumes. There is no history of travel. There is no history of DVT or PE in the past. PAST MEDICAL HISTORY: Includes chronic kidney disease, diabetes, COPD, hypertension, schizoaffective disorder and depression. REVIEW OF SYSTEMS: No orthopnea. Positive dyspnea. No chest pain. No palpitations. No abdominal pain. No lower extremity edema. SOCIAL HISTORY: History of tobacco use, quit about a year ago. 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 CURRENT MEDICATIONS: Include heparin, Effexor, Seroquel, Januvia, Lipitor, NovoLog, Levemir and aspirin. PHYSICAL EXAMINATION: General: Patient is a well-developed, well-nourished female awake, alert in no acute distress. Vital Signs: She is afebrile, blood pressure 95/50. Respiratory rate is 18. O2 saturation is 96% on room air. HEENT: Normocephalic, atraumatic. Neck: Supple. Heart: Regular with S1, S2. Chest: Few scattered bilateral wheezes. Abdomen: Soft. Bowel sounds positive. Extremities: No cyanosis, edema. LABORATORIES: WBC is 12.3, hemoglobin 11.1, hematocrit 34, platelet count 197,000. Venous blood gas 7.30, pCO2 of 46, a pO2 of 18, a bicarbonate of 23. Chemistries: Hemoglobin A1c is 13.4. BUN 31, creatinine 1.8. COVID not detected. Chest x- ray: No infiltrates. No effusions. IMPRESSION: 1. Dyspnea likely secondary to chronic obstructive pulmonary disease with acute exacerbation. 2. Urinary tract infection. 3. Dlvmo-tu-qutljtr kidney disease. 4. Hyperglycemia. 5. Poorly controlled diabetes mellitus. 6. Hyponatremia, likely pseudo hyponatremia secondary to elevated blood glucose. 7. Schizoaffective disorder. 8. Hypertension. PLAN: Supplemental O2, inhaled bronchodilators. Glycemic control, IV fluids, monitor electrolytes, sodium and glucose and low dose chest CT. NEHEMIAH RUSSELL M.D. [id number] MTDD
[2019-12-18] MEDS: ALBUTEROL SO4 2.5/IPRATROPIUM 0.5 INH SOL 3 ML VIAL.NEB. NEB SCH ×2 (16:33→20:18)
[2019-12-18] MEDS: ATORVASTATIN CA 10 MG TABLET (FP) PO SCH (21:34)
--- NOTE | 2019-12-18 23:46 | CONS ---
DATE OF CONSULTATION: DATE OF DICTATION: 12/18/2019 INFECTIOUS DISEASE CONSULTATION HISTORY OF PRESENT ILLNESS: The patient is a 69-year-old female with a history of COPD, history of chronic kidney disease evaluated for urinary tract infection. She was admitted to the hospital on December 17, 2019, with a 4-day history of worsening shortness of breath and chest discomfort. She was diagnosed with acute exacerbation of COPD. Her hospital course was significant for positive urinalysis with 1490 white cells. Cultures are pending. She was empirically treated with ceftriaxone. At the present time she is awake and alert. She is comfortable on room air. She denies any chest pain or shortness of breath. She denies any dysuria or hematuria. Her course has been further complicated by uncontrolled blood sugar and elevated creatinine. PAST MEDICAL HISTORY: Positive for diabetes mellitus, chronic kidney disease, peripheral neuropathy, hypertension, COPD, schizoaffective disorder, polysubstance abuse, depression, history of cellulitis with right lower extremity. PAST SURGICAL HISTORY: Status post appendectomy. ALLERGIES: No known allergies. MEDICATION: Include: 1. Ceftriaxone. 2. Albuterol. 3. Lipitor. 4. Aspirin. SOCIAL HISTORY: She lives in the community. She is a nonsmoker at the present time. SYSTEMS REVIEW: Neurologic: No loss of consciousness, seizure activity, focal weakness. Cardiac: As per HPI. Respiratory: As per HPI. Gastrointestinal: Negative vomiting or diarrhea. Genitourinary: Negative for urinary tract infection. LABORATORY DATA: White count on admission 14.1, presently 12.3, hematocrit 34.0, platelet count 197, BUN 31, creatinine 1.8, glucose 405. Urinalysis: 1490 white cells. COVID-19 PCR pending. Blood and urine cultures are pending. PHYSICAL EXAMINATION: General: On exam, she is awake and alert, she is seated in bed, she is in no acute distress. Vital signs: Temperature 99.9, blood pressure 103/54, pulse 102 regular, respirations 20 per minute. HEENT: Sclerae anicteric. Cardiovascular: Heart sounds S1, S2. Lungs: Clear. Abdomen: Soft. No suprapubic or flank tenderness. Extremities: Negative for edema. IMPRESSION: 1. Acute exacerbation chronic obstructive pulmonary disease. 2. Uncontrolled diabetes mellitus. 3. Urinary tract infection. 4. Chronic kidney disease. Await urine culture. Continue empiric ceftriaxone. Chest x-ray negative for acute infiltrate. Further recommendations pending cultures. Will follow. Thank you for the kind referral. MAURI GRAY M.D. NICOLE/[id number]
[2019-12-19] MEDS: INSULIN SLIDING SCALE (NOVOLOG) 1 VIAL SQ SCH ×6 (02:44→22:40)
[2019-12-19] MEDS: HEPARIN NA (PORCINE) 5,000 UNITS/ML 1ML VIAL SQ SCH ×3 (06:14→21:04)
[2019-12-19] MEDS: QUEtiapine FUMARATE 200 MG TABLET PO SCH ×3 (06:15→21:02)
[2019-12-19] MEDS: sitaGLIPtin PHOSPHATE 50 MG TABLET PO SCH (06:15)
[2019-12-19] MEDS: INSULIN (LEVEMIR) 100 UNITS/ML UNITS SQ SCH ×3 (06:21→21:04)
[2019-12-19] MEDS: SODIUM CHLORIDE 1,000 ML IV SCH (07:01)
--- NOTE | 2019-12-19 07:17 | PN ---
Progress Note, Physician History of Present Illness: PULMONARY COMFORTABLE,LESS DYSPNEIC,-CP,-COUGH - Current Medication List Current Medications: Active Medications Albuterol/Ipratropium (Duoneb -) 1 amp NEB RQID [facility] Last Admin: 12/18/19 20:18 Dose: 1 amp Documented by: Aspirin (Asa -) 81 mg PO DAILY [facility] Last Admin: 12/18/19 10:22 Dose: 81 mg Documented by: Atorvastatin Calcium (Lipitor -) 10 mg PO HS [facility] Last Admin: 12/18/19 21:34 Dose: 10 mg Documented by: Budesonide/Formoterol Fumarate (Symbicort 160/4.5mcg -) 2 puff IH BID [facility] Last Admin: 12/18/19 21:35 Dose: 2 puff Documented by: Heparin Sodium (Porcine) (Heparin -) 5,000 unit SQ TID [facility] Last Admin: 12/19/19 06:14 Dose: 5,000 unit Documented by: Sodium Chloride (Normal Saline -) 1,000 mls @ 100 mls/hr IV ASDIR [facility] Last Admin: 12/19/19 07:01 Dose: Not Given Documented by: Ceftriaxone Sodium 1 gm/ (Dextrose) 50 mls @ 200 mls/hr IVPB DAILY [facility]; Protocol Last Admin: 12/18/19 14:52 Dose: 200 mls/hr Documented by: Insulin Aspart (Novolog Vial Sliding Scale -) 1 vial SQ Q4H [facility]; Protocol Last Admin: 12/19/19 06:13 Dose: Not Given Documented by: Insulin Detemir (Levemir Vial) 15 units SQ BID@0700,2200 [facility] Last Admin: 12/19/19 06:58 Dose: 15 units Documented by: Quetiapine Fumarate (Seroquel -) 200 mg PO TID [facility] Last Admin: 12/19/19 06:15 Dose: 200 mg Documented by: Sitagliptin Phosphate (Januvia -) 50 mg PO ACBK [facility] Last Admin: 12/19/19 06:15 Dose: 50 mg Documented by: Venlafaxine HCl (Effexor Xr -) 150 mg PO DAILY [facility] Last Admin: 12/18/19 10:22 Dose: 150 mg Documented by: - Objective Vital Signs: Vital Signs Temperature 98.6 F 12/19/19 02:56 Pulse Rate 104 H 12/19/19 02:56 Respiratory Rate 18 11/04/20 02:56 Blood Pressure 109/57 L 12/19/19 02:56 O2 Sat by Pulse Oximetry (%) 97 12/19/19 02:56 Constitutional: Yes: Well Nourished, Calm Eyes: Yes: WNL HENT: Yes: WNL Neck: Yes: WNL Cardiovascular: Yes: Regular Rate and Rhythm, S1, S2 Respiratory: Yes: Diminished Gastrointestinal: Yes: Normal Bowel Sounds, Soft Extremities: Yes: WNL Edema: No Labs: CBC, BMP 12/18/19 06:30 Problem List - Problems (1) Hyperglycemia Code(s): R73.9 - HYPERGLYCEMIA, UNSPECIFIED (2) Leukocytosis Code(s): D72.829 - ELEVATED WHITE BLOOD CELL COUNT, UNSPECIFIED (3) CKD (chronic kidney disease) Code(s): N18.9 - CHRONIC KIDNEY DISEASE, UNSPECIFIED (4) Diabetes Code(s): E11.9 - TYPE 2 DIABETES MELLITUS WITHOUT COMPLICATIONS Qualifiers: Diabetes mellitus type: type 2 (5) Dyspnea Code(s): R06.00 - DYSPNEA, UNSPECIFIED (6) Dyspnea on exertion Code(s): R06.09 - OTHER FORMS OF DYSPNEA (7) HTN (hypertension) Code(s): I10 - ESSENTIAL (PRIMARY) HYPERTENSION (8) Schizoaffective disorder, chronic condition Code(s): F25.9 - SCHIZOAFFECTIVE DISORDER, UNSPECIFIED (9) COPD exacerbation Code(s): J44.1 - CHRONIC OBSTRUCTIVE PULMONARY DISEASE W (ACUTE) EXACERBATION (10) COPD (chronic obstructive pulmonary disease) Code(s): J44.9 - CHRONIC OBSTRUCTIVE PULMONARY DISEASE, UNSPECIFIED Assessment/Plan IMP DYSPNEA IMPROVING COPD WITH ACUTE EXACERBATION HYPERGLYCEMIA POORLY CONTROLLED DM ACUTE ON CKD HTN SCHIZO-AFFECTIVE DISORDER HYPONATREMIA IMPROVING PLAN SUPPLEMENTAL O2 INHALED BRONCHODILATORS GLYCEMIC CONTROL IVF MONITOR LYTES,NA,GLUCOSE LOW DOSE CHEST CT FOR LUNG CANCER SCREENING OUTPATIENT PFTS DR RUSSELL Problem List - Problems (1) Hyperglycemia Code(s): R73.9 - HYPERGLYCEMIA, UNSPECIFIED (2) Leukocytosis Code(s): D72.829 - ELEVATED WHITE BLOOD CELL COUNT, UNSPECIFIED (3) CKD (chronic kidney disease) Code(s): N18.9 - CHRONIC KIDNEY DISEASE, UNSPECIFIED (4) Diabetes Code(s): E11.9 - TYPE 2 DIABETES MELLITUS WITHOUT COMPLICATIONS Qualifiers: Diabetes mellitus type: type 2 (5) Dyspnea Code(s): R06.00 - DYSPNEA, UNSPECIFIED (6) Dyspnea on exertion Code(s): R06.09 - OTHER FORMS OF DYSPNEA (7) HTN (hypertension) Code(s): I10 - ESSENTIAL (PRIMARY) HYPERTENSION (8) Schizoaffective disorder, chronic condition Code(s): F25.9 - SCHIZOAFFECTIVE DISORDER, UNSPECIFIED (9) COPD exacerbation Code(s): J44.1 - CHRONIC OBSTRUCTIVE PULMONARY DISEASE W (ACUTE) EXACERBATION (10) COPD (chronic obstructive pulmonary disease) Code(s): J44.9 - CHRONIC OBSTRUCTIVE PULMONARY DISEASE, UNSPECIFIED
[2019-12-19 07:48] LABS: BASO % 0.4 % (0-2.0); EOS % 0.2 % (0-4.5); HEMATOCRIT 27.2 % (32.4-45.2); HEMOGLOBIN 9.1 GM/dL (10.7-15.3); LYMPH % 15.7 % (8-40); MCH 28.9 pg (25.7-33.7); MCHC 33.4 g/dl (32.0-36.0); MEAN CELL VOLUME 86.6 fl (80-96); MEAN PLT VOLUME 9.1 fl (7.5-11.1); MONO % 9.2 % (3.8-10.2); NEUT % 74.5 % (42.8-82.8); PLATELET COUNT 129 K/MM3 (134-434); RBC 3.14 M/mm3 (3.60-5.2); RDW 13.5 % (11.6-15.6); WHITE BLOOD COUNT 10.2 K/mm3 (4.0-10.0)
[2019-12-19] MEDS: ALBUTEROL SO4 2.5/IPRATROPIUM 0.5 INH SOL 3 ML VIAL.NEB. NEB SCH ×4 (08:02→20:07)
[2019-12-19] MEDS ORDERED: cefTRIAXone SODIUM 1 GM VIAL ONE (08:54)
[2019-12-19] MEDS ORDERED: DEXTROSE 5%-WATER - 50 ML IVPB ONE (08:54)
--- NOTE | 2019-12-19 09:00 | PN ---
Progress Note, Physician - Current Medication List Current Medications: Active Medications Albuterol/Ipratropium (Duoneb -) 1 amp NEB RQID [facility] Last Admin: 12/19/19 08:02 Dose: Not Given Documented by: Aspirin (Asa -) 81 mg PO DAILY [facility] Last Admin: 12/18/19 10:22 Dose: 81 mg Documented by: Atorvastatin Calcium (Lipitor -) 10 mg PO HS [facility] Last Admin: 12/18/19 21:34 Dose: 10 mg Documented by: Budesonide/Formoterol Fumarate (Symbicort 160/4.5mcg -) 2 puff IH BID [facility] Last Admin: 12/18/19 21:35 Dose: 2 puff Documented by: Heparin Sodium (Porcine) (Heparin -) 5,000 unit SQ TID [facility] Last Admin: 12/19/19 06:14 Dose: 5,000 unit Documented by: Sodium Chloride (Normal Saline -) 1,000 mls @ 100 mls/hr IV ASDIR [facility] Last Admin: 12/19/19 07:01 Dose: Not Given Documented by: Ceftriaxone Sodium 1 gm/ (Dextrose) 50 mls @ 200 mls/hr IVPB DAILY [facility]; Protocol Last Admin: 12/18/19 14:52 Dose: 200 mls/hr Documented by: Insulin Aspart (Novolog Vial Sliding Scale -) 1 vial SQ Q4H [facility]; Protocol Last Admin: 12/19/19 06:13 Dose: Not Given Documented by: Insulin Detemir (Levemir Vial) 15 units SQ BID@0700,2200 [facility] Last Admin: 12/19/19 06:58 Dose: 15 units Documented by: Quetiapine Fumarate (Seroquel -) 200 mg PO TID [facility] Last Admin: 12/19/19 06:15 Dose: 200 mg Documented by: Sitagliptin Phosphate (Januvia -) 50 mg PO ACBK [facility] Last Admin: 12/19/19 06:15 Dose: 50 mg Documented by: Venlafaxine HCl (Effexor Xr -) 150 mg PO DAILY [facility] Last Admin: 12/18/19 10:22 Dose: 150 mg Documented by: - Objective Vital Signs: Vital Signs Temperature 98.6 F 12/19/19 02:56 Pulse Rate 104 H 12/19/19 02:56 Respiratory Rate 18 12/19/19 02:56 Blood Pressure 109/57 L 12/19/19 02:56 O2 Sat by Pulse Oximetry (%) 97 12/19/19 02:56 Cardiovascular: Yes: Regular Rate and Rhythm Respiratory: Yes: Regular, CTA Bilaterally Gastrointestinal: Yes: Normal Bowel Sounds, Soft. No: Tenderness Labs: CBC, BMP 12/19/19 06:55 Problem List - Problems (1) DKA (diabetic ketoacidoses) Assessment/Plan: Start levemir ss ivf endo consult a1c Code(s): E11.10 - TYPE 2 DIABETES MELLITUS WITH KETOACIDOSIS WITHOUT COMA Qualifiers: Diabetes mellitus type: type 2 Diabetes mellitus complication detail: without coma Qualified Code(s): E11.10 - Type 2 diabetes mellitus with ketoacidosis without coma (2) Leukocytosis Assessment/Plan: Maybe reactive r/o uti-bacteremia cultures Microbiology 12/18/19 06:30 Blood - Peripheral Venous Blood Culture - Preliminary NO GROWTH OBTAINED AFTER 24 HOURS, INCUBATION TO CONTINUE FOR 4 DAYS. 12/18/19 06:40 Blood - Peripheral Venous Blood Culture - Preliminary NO GROWTH OBTAINED AFTER 24 HOURS, INCUBATION TO CONTINUE FOR 4 DAYS. iv abx id consult Code(s): D72.829 - ELEVATED WHITE BLOOD CELL COUNT, UNSPECIFIED (3) Hyperglycemia Assessment/Plan: as above Code(s): R73.9 - HYPERGLYCEMIA, UNSPECIFIED (4) COPD (chronic obstructive pulmonary disease) Assessment/Plan: pulm consult Code(s): J44.9 - CHRONIC OBSTRUCTIVE PULMONARY DISEASE, UNSPECIFIED (5) Dyspnea Assessment/Plan: maybe due to above monitor cxr nad Code(s): R06.00 - DYSPNEA, UNSPECIFIED (6) Anemia Assessment/Plan: maybe dilutional repeat follow trends gi consult Code(s): D64.9 - ANEMIA, UNSPECIFIED
[2019-12-19 09:11] LABS: POTASSIUM 3.4 mmol/L (3.5-5.1)
[2019-12-19 09:12] LABS: CALCIUM 8.7 mg/dL (8.5-10.1)
[2019-12-19 09:13] LABS: BLOOD UREA NITROGEN 26.7 mg/dL (7-18)
[2019-12-19 09:16] LABS: CREATININE 1.3 mg/dL (0.55-1.3)
[2019-12-19 09:17] LABS: BILIRUBIN,TOTAL 0.3 mg/dL (0.2-1)
[2019-12-19 09:18] LABS: TOT PROT 6.4 g/dl (6.4-8.2)
[2019-12-19] MEDS: ASPIRIN 81 MG CHEWABLE TABLETS PO SCH (09:47)
[2019-12-19] MEDS: VENLAFAXINE HCL 75 MG E.R. CAPSULES PO SCH (09:47)
[2019-12-19] MEDS: CEFTRIAXONE 1 GM in DEXTROSE 5%-WATER - 50 ML IVPB SCH (09:47)
[2019-12-19] MEDS ORDERED: POTASSIUM CHLORIDE TABS 20 MEQ TABLET.ER (FP) PO ONE (09:54)
[2019-12-19] MEDS: BUDESONIDE/FORMETEROL FUMARATE 160/4.5 mcg INHALER IH SCH ×2 (10:22→21:08)
[2019-12-19 11:47] LABS: BASO % 0.3 % (0-2.0); EOS % 0.3 % (0-4.5); HEMATOCRIT 28.3 % (32.4-45.2); HEMOGLOBIN 9.6 GM/dL (10.7-15.3); LYMPH % 11.6 % (8-40); MCH 29.6 pg (25.7-33.7); MCHC 33.8 g/dl (32.0-36.0); MEAN CELL VOLUME 87.7 fl (80-96); MEAN PLT VOLUME 9.3 fl (7.5-11.1); MONO % 9.3 % (3.8-10.2); NEUT % 78.5 % (42.8-82.8); PLATELET COUNT 123 K/MM3 (134-434); RBC 3.23 M/mm3 (3.60-5.2); RDW 13.7 % (11.6-15.6); WHITE BLOOD COUNT 10.2 K/mm3 (4.0-10.0)
[2019-12-19 12:11] LABS: ANISOCYTOSIS 1+; MACROCYTOSIS 1+; PLATELET ESTIMATE DECREASED
[2019-12-19] MEDS: ACETAMINOPHEN 500 MG TABLET (FP) PO PRN (13:14)
[2019-12-19] MEDS ORDERED: INSULIN (NOVOLOG) ASPART 100 UNITS/ML 10ML VIAL ONE ×2 (14:56→20:51)
--- NOTE | 2019-12-19 20:03 | PN ---
Progress Note, Physician History of Present Illness: AWAKE, ALERT IN BED NO COMPLAINTS AFEBRILE NO URINARY TRACT COMPLAINTS URINE C/S LF - Current Medication List Current Medications: Active Medications Acetaminophen (Tylenol -) 1,000 mg PO Q6H PRN PRN Reason: PAIN 1-3 Last Admin: 12/19/19 13:14 Dose: 1,000 mg Documented by: Albuterol/Ipratropium (Duoneb -) 1 amp NEB RQID [facility] Last Admin: 12/19/19 16:00 Dose: 1 amp Documented by: Aspirin (Asa -) 81 mg PO DAILY [facility] Last Admin: 12/19/19 09:47 Dose: 81 mg Documented by: Atorvastatin Calcium (Lipitor -) 10 mg PO HS [facility] Last Admin: 12/18/19 21:34 Dose: 10 mg Documented by: Budesonide/Formoterol Fumarate (Symbicort 160/4.5mcg -) 2 puff IH BID [facility] Last Admin: 12/19/19 10:22 Dose: 2 puff Documented by: Heparin Sodium (Porcine) (Heparin -) 5,000 unit SQ TID [facility] Last Admin: 12/19/19 13:16 Dose: 5,000 unit Documented by: Ceftriaxone Sodium 1 gm/ (Dextrose) 50 mls @ 200 mls/hr IVPB DAILY [facility]; Protocol Last Admin: 12/19/19 09:47 Dose: 200 mls/hr Documented by: Insulin Aspart (Novolog Vial Sliding Scale -) 1 vial SQ Q4H [facility]; Protocol Last Admin: 12/19/19 18:17 Dose: 6 units Documented by: Insulin Detemir (Levemir Vial) 15 units SQ BID@0700,2200 [facility] Last Admin: 12/19/19 06:58 Dose: 15 units Documented by: Quetiapine Fumarate (Seroquel -) 200 mg PO TID [facility] Last Admin: 12/19/19 13:16 Dose: 200 mg Documented by: Sitagliptin Phosphate (Januvia -) 50 mg PO ACBK [facility] Last Admin: 12/19/19 06:15 Dose: 50 mg Documented by: Venlafaxine HCl (Effexor Xr -) 150 mg PO DAILY [facility] Last Admin: 12/19/19 09:47 Dose: 150 mg Documented by: - Objective Vital Signs: Vital Signs Temperature 99.4 F 12/19/19 14:29 Pulse Rate 112 H 11/04/20 14:29 Respiratory Rate 18 12/19/19 14:29 Blood Pressure 90/54 L 12/19/19 14:29 O2 Sat by Pulse Oximetry (%) 96 12/19/19 09:00 Constitutional: Yes: No Distress Eyes: Yes: Conjunctiva Clear Cardiovascular: Yes: Regular Rate and Rhythm, S1, S2 Respiratory: Yes: Diminished Gastrointestinal: Yes: Normal Bowel Sounds, Soft, Tenderness Labs: CBC, BMP 12/19/19 10:00 12/19/19 06:55 Assessment/Plan EXACERBATION COPD UTI DM CKD AWAIT C/S CONTINUE CEFTRIAXONE
[2019-12-19] MEDS: ATORVASTATIN CA 10 MG TABLET (FP) PO SCH (21:02)
[2019-12-20] MEDS: INSULIN SLIDING SCALE (NOVOLOG) 1 VIAL SQ SCH ×6 (02:40→22:24)
[2019-12-20] MEDS: HEPARIN NA (PORCINE) 5,000 UNITS/ML 1ML VIAL SQ SCH ×4 (06:24→21:02)
[2019-12-20] MEDS: QUEtiapine FUMARATE 200 MG TABLET PO SCH ×4 (06:24→21:03)
[2019-12-20] MEDS: INSULIN (LEVEMIR) 100 UNITS/ML UNITS SQ SCH ×2 (06:24→21:02)
[2019-12-20] MEDS: sitaGLIPtin PHOSPHATE 50 MG TABLET PO SCH (06:25)
[2019-12-20] MEDS: ALBUTEROL SO4 2.5/IPRATROPIUM 0.5 INH SOL 3 ML VIAL.NEB. NEB SCH ×4 (09:50→20:01)
[2019-12-20] MEDS ORDERED: cefTRIAXone SODIUM 1 GM VIAL ONE (10:33)
[2019-12-20] MEDS ORDERED: DEXTROSE 5%-WATER - 50 ML IVPB ONE (10:33)
--- NOTE | 2019-12-20 10:34 | PN ---
Progress Note, Physician - Current Medication List Current Medications: Active Medications Acetaminophen (Tylenol -) 1,000 mg PO Q6H PRN PRN Reason: PAIN 1-3 Last Admin: 12/19/19 13:14 Dose: 1,000 mg Documented by: Albuterol/Ipratropium (Duoneb -) 1 amp NEB RQID [facility] Last Admin: 12/20/19 09:50 Dose: 1 amp Documented by: Aspirin (Asa -) 81 mg PO DAILY [facility] Last Admin: 12/19/19 09:47 Dose: 81 mg Documented by: Atorvastatin Calcium (Lipitor -) 10 mg PO HS [facility] Last Admin: 12/19/19 21:02 Dose: 10 mg Documented by: Budesonide/Formoterol Fumarate (Symbicort 160/4.5mcg -) 2 puff IH BID [facility] Last Admin: 12/19/19 21:08 Dose: 2 puff Documented by: Heparin Sodium (Porcine) (Heparin -) 5,000 unit SQ TID [facility] Last Admin: 12/20/19 06:24 Dose: 5,000 unit Documented by: Ceftriaxone Sodium 1 gm/ (Dextrose) 50 mls @ 200 mls/hr IVPB DAILY [facility]; Protocol Last Admin: 12/19/19 09:47 Dose: 200 mls/hr Documented by: Insulin Aspart (Novolog Vial Sliding Scale -) 1 vial SQ Q4H [facility]; Protocol Last Admin: 12/20/19 06:29 Dose: Not Given Documented by: Insulin Detemir (Levemir Vial) 15 units SQ BID@0700,2200 [facility] Last Admin: 12/20/19 06:24 Dose: 15 units Documented by: Quetiapine Fumarate (Seroquel -) 200 mg PO TID [facility] Last Admin: 12/20/19 06:24 Dose: 200 mg Documented by: Sitagliptin Phosphate (Januvia -) 50 mg PO ACBK [facility] Last Admin: 12/20/19 06:25 Dose: 50 mg Documented by: Venlafaxine HCl (Effexor Xr -) 150 mg PO DAILY [facility] Last Admin: 12/19/19 09:47 Dose: 150 mg Documented by: - Objective Vital Signs: Vital Signs Temperature 98.2 F 12/20/19 05:55 Pulse Rate 96 H 12/20/19 05:55 Respiratory Rate 18 12/20/19 05:55 Blood Pressure 98/55 L 11/05/20 05:55 O2 Sat by Pulse Oximetry (%) 94 L 12/20/19 05:55 Cardiovascular: Yes: Regular Rate and Rhythm Respiratory: Yes: Regular, CTA Bilaterally Gastrointestinal: Yes: Normal Bowel Sounds, Soft. No: Tenderness Edema: No Labs: CBC, BMP 12/19/19 10:00 12/19/19 06:55 Problem List - Problems (1) DKA (diabetic ketoacidoses) Assessment/Plan: Start levemir ss ivf endo consult a1c Code(s): E11.10 - TYPE 2 DIABETES MELLITUS WITH KETOACIDOSIS WITHOUT COMA Qualifiers: Diabetes mellitus type: type 2 Diabetes mellitus complication detail: without coma Qualified Code(s): E11.10 - Type 2 diabetes mellitus with ketoacidosis without coma (2) Leukocytosis Assessment/Plan: Maybe reactive r/o uti-bacteremia cultures Microbiology 12/17/19 21:15 Urine - Urine Clean Catch Urine Culture - Final Escherichia Coli 12/18/19 06:30 Blood - Peripheral Venous Blood Culture - Preliminary NO GROWTH OBTAINED AFTER 48 HOURS, INCUBATION TO CONTINUE FOR 3 DAYS. 12/18/19 06:40 Blood - Peripheral Venous Blood Culture - Preliminary NO GROWTH OBTAINED AFTER 48 HOURS, INCUBATION TO CONTINUE FOR 3 DAYS. iv abx id consult Code(s): D72.829 - ELEVATED WHITE BLOOD CELL COUNT, UNSPECIFIED (3) Hyperglycemia Assessment/Plan: as above Code(s): R73.9 - HYPERGLYCEMIA, UNSPECIFIED (4) COPD (chronic obstructive pulmonary disease) Assessment/Plan: pulm consult Code(s): J44.9 - CHRONIC OBSTRUCTIVE PULMONARY DISEASE, UNSPECIFIED (5) Dyspnea Assessment/Plan: maybe due to above monitor cxr nad Code(s): R06.00 - DYSPNEA, UNSPECIFIED (6) Anemia Assessment/Plan: maybe dilutional repeat follow trends gi consult Code(s): D64.9 - ANEMIA, UNSPECIFIED Qualifiers: Anemia type: unspecified type Qualified Code(s): D64.9 - Anemia, unspecified (7) Duodenal diverticulum Assessment/Plan: ct scan gi Code(s): K57.10 - DVRTCLOS OF SM INT W/O PERFORATION OR ABSCESS W/O BLEEDING
[2019-12-20] MEDS: ASPIRIN 81 MG CHEWABLE TABLETS PO SCH (10:38)
[2019-12-20] MEDS: VENLAFAXINE HCL 75 MG E.R. CAPSULES PO SCH (10:38)
[2019-12-20] MEDS: CEFTRIAXONE 1 GM in DEXTROSE 5%-WATER - 50 ML IVPB SCH (10:38)
[2019-12-20] MEDS: BUDESONIDE/FORMETEROL FUMARATE 160/4.5 mcg INHALER IH SCH ×2 (10:41→21:03)
--- NOTE | 2019-12-20 11:15 | PN ---
Progress Note, Physician History of Present Illness: PULMONARY ALERT,STILL C/O SOB - Current Medication List Current Medications: Active Medications Acetaminophen (Tylenol -) 1,000 mg PO Q6H PRN PRN Reason: PAIN 1-3 Last Admin: 12/19/19 13:14 Dose: 1,000 mg Documented by: Albuterol/Ipratropium (Duoneb -) 1 amp NEB RQID [facility] Last Admin: 12/20/19 09:50 Dose: 1 amp Documented by: Aspirin (Asa -) 81 mg PO DAILY [facility] Last Admin: 12/20/19 10:38 Dose: 81 mg Documented by: Atorvastatin Calcium (Lipitor -) 10 mg PO HS [facility] Last Admin: 12/19/19 21:02 Dose: 10 mg Documented by: Budesonide/Formoterol Fumarate (Symbicort 160/4.5mcg -) 2 puff IH BID [facility] Last Admin: 12/20/19 10:41 Dose: 2 puff Documented by: Heparin Sodium (Porcine) (Heparin -) 5,000 unit SQ TID [facility] Last Admin: 12/20/19 06:24 Dose: 5,000 unit Documented by: Ceftriaxone Sodium 1 gm/ (Dextrose) 50 mls @ 200 mls/hr IVPB DAILY [facility]; Protocol Last Admin: 12/20/19 10:38 Dose: 200 mls/hr Documented by: Insulin Aspart (Novolog Vial Sliding Scale -) 1 vial SQ Q4H [facility]; Protocol Last Admin: 12/20/19 10:48 Dose: 4 units Documented by: Insulin Detemir (Levemir Vial) 15 units SQ BID@0700,2200 [facility] Last Admin: 12/20/19 06:24 Dose: 15 units Documented by: Quetiapine Fumarate (Seroquel -) 200 mg PO TID [facility] Last Admin: 12/20/19 06:24 Dose: 200 mg Documented by: Sitagliptin Phosphate (Januvia -) 50 mg PO ACBK [facility] Last Admin: 12/20/19 06:25 Dose: 50 mg Documented by: Venlafaxine HCl (Effexor Xr -) 150 mg PO DAILY [facility] Last Admin: 12/20/19 10:38 Dose: 150 mg Documented by: - Objective Vital Signs: Vital Signs Temperature 98 F 12/20/19 11:00 Pulse Rate 104 H 12/20/19 11:00 Respiratory Rate 18 12/20/19 11:00 Blood Pressure 95/67 12/20/19 11:00 O2 Sat by Pulse Oximetry (%) 94 L 12/20/19 11:00 Constitutional: Yes: Well Nourished, Calm Eyes: Yes: WNL HENT: Yes: WNL Neck: Yes: WNL Cardiovascular: Yes: Regular Rate and Rhythm, S1, S2 Respiratory: Yes: Diminished Gastrointestinal: Yes: Normal Bowel Sounds, Soft Extremities: Yes: WNL Edema: No Labs: CBC, BMP Problem List - Problems (1) Hyperglycemia Code(s): R73.9 - HYPERGLYCEMIA, UNSPECIFIED (2) Leukocytosis Code(s): D72.829 - ELEVATED WHITE BLOOD CELL COUNT, UNSPECIFIED (3) CKD (chronic kidney disease) Code(s): N18.9 - CHRONIC KIDNEY DISEASE, UNSPECIFIED (4) Diabetes Code(s): E11.9 - TYPE 2 DIABETES MELLITUS WITHOUT COMPLICATIONS Qualifiers: Diabetes mellitus type: type 2 (5) Dyspnea Code(s): R06.00 - DYSPNEA, UNSPECIFIED (6) Dyspnea on exertion Code(s): R06.09 - OTHER FORMS OF DYSPNEA (7) HTN (hypertension) Code(s): I10 - ESSENTIAL (PRIMARY) HYPERTENSION (8) Schizoaffective disorder, chronic condition Code(s): F25.9 - SCHIZOAFFECTIVE DISORDER, UNSPECIFIED (9) COPD exacerbation Code(s): J44.1 - CHRONIC OBSTRUCTIVE PULMONARY DISEASE W (ACUTE) EXACERBATION (10) COPD (chronic obstructive pulmonary disease) Code(s): J44.9 - CHRONIC OBSTRUCTIVE PULMONARY DISEASE, UNSPECIFIED Assessment/Plan IMP DYSPNEA IMPROVING COPD WITH ACUTE EXACERBATION HYPERGLYCEMIA POORLY CONTROLLED DM ACUTE ON CKD HTN SCHIZO-AFFECTIVE DISORDER HYPONATREMIA IMPROVING PLAN SUPPLEMENTAL O2 INHALED BRONCHODILATORS GLYCEMIC CONTROL MEDROL X 24H IVF MONITOR LYTES,NA,GLUCOSE LOW DOSE CHEST CT FOR LUNG CANCER SCREENING OUTPATIENT PFTS DR RUSSELL Problem List - Problems (1) Hyperglycemia Code(s): R73.9 - HYPERGLYCEMIA, UNSPECIFIED (2) Leukocytosis Code(s): D72.829 - ELEVATED WHITE BLOOD CELL COUNT, UNSPECIFIED (3) CKD (chronic kidney disease) Code(s): N18.9 - CHRONIC KIDNEY DISEASE, UNSPECIFIED (4) Diabetes Code(s): E11.9 - TYPE 2 DIABETES MELLITUS WITHOUT COMPLICATIONS Qualifiers: Diabetes mellitus type: type 2 (5) Dyspnea Code(s): R06.00 - DYSPNEA, UNSPECIFIED (6) Dyspnea on exertion Code(s): R06.09 - OTHER FORMS OF DYSPNEA (7) HTN (hypertension) Code(s): I10 - ESSENTIAL (PRIMARY) HYPERTENSION (8) Schizoaffective disorder, chronic condition Code(s): F25.9 - SCHIZOAFFECTIVE DISORDER, UNSPECIFIED (9) COPD exacerbation Code(s): J44.1 - CHRONIC OBSTRUCTIVE PULMONARY DISEASE W (ACUTE) EXACERBATION (10) COPD (chronic obstructive pulmonary disease) Code(s): J44.9 - CHRONIC OBSTRUCTIVE PULMONARY DISEASE, UNSPECIFIED
--- NOTE | 2019-12-20 17:09 | CON.GI ---
Consult Consult Specialty:: GI: For Dr. Blackmon who resumes care 12/20 Referred by:: Dr. Gamaliel Syed Reason for Consultation:: Anemia - History of Present Illness Chief Complaint: Shortness of breath History of Present Illness: 69F admitted for evaluation of shortness of breath. Being treated for COPD exacerbation. Patient states that she feels her breathing is still so-so. Called to evaluate anemia. Patient denies overt bleeding. No melena reported. Denies abdominal pain, change in bowel habits, change in stool caliber. In review of [place], anemia seems to be chronic in nature. Believes that she may have had an EGD/Colonoscopy in the past but was unsure when it was or who performed it. She did have an EGD performed in [address] Miguelito Blackmon while she was an inpatient. She was also noted to be guaiac positive at that time. EGD revealed gastritis. No family history of colorectal cancer or other GI malignancy. - History Source History Provided By: Patient, Medical Record - Past Medical History Cardio/Vascular: Yes: HTN Pulmonary: Yes: COPD (?) Renal/: Yes: Renal Inusuff ...: No Psych: Yes: Anxiety, Depression Musculoskeletal: Yes: Chronic low back pain Endocrine: Yes: Diabetes Mellitus (DM II) - Past Surgical History Past Surgical History: Yes: Appendectomy - Alcohol/Substance Use Hx Alcohol Use: No History of Substance Use: reports: None - Smoking History Smoking history: Former smoker Have you smoked in the past 12 months: No Aproximately how many cigarettes per day: 5 If you are a former smoker, when did you quit?: 1 month ago - Social History Usual Living Arrangement: Alone ADL: Independent Place of : [facility] History of Recent Travel: No Home Medications - Allergies Allergies/Adverse Reactions: Allergies Allergy/AdvReac Type Severity Reaction Status Date / Time No Known Allergies Allergy Verified 12/09/19 13:30 - Home Medications Home Medications: Ambulatory Orders Aspirin [ASA -] 81 mg PO DAILY 09/14/19 Glimepiride 2 mg PO BID 09/14/19 Quetiapine Fumarate [Seroquel -] 200 mg PO TID 09/14/19 Simvastatin [Zocor] 20 mg PO HS 09/14/19 Sitagliptin Phosphate [Januvia] 100 mg PO DAILY 09/14/19 Venlafaxine HCl ER [Effexor Xr -] 150 mg PO DAILY 09/14/19 Walker [Ultra-Light Rollator] 1 each [facility] DAILY #1 each 09/14/19 Family Medical History Other Family History: No family history of colorectal cancer or other GI malignancy Review of Systems - Review of Systems Constitutional: denies: Diaphoresis Cardiovascular: denies: Chest Pain Respiratory: reports: SOB, Wheezing Gastrointestinal: denies: Abdominal Pain, Bloating, Constipation, Diarrhea, Melena, Rectal Bleeding, Vomiting, Vomiting Blood Physical Exam-GI Vital Signs: Vital Signs Temperature 98 F 12/20/19 11:00 Pulse Rate 104 H 12/20/19 11:00 Respiratory Rate 18 12/20/19 11:00 Blood Pressure 95/67 12/20/19 11:00 O2 Sat by Pulse Oximetry (%) 94 L 12/20/19 11:00 Constitutional: Yes: Calm Eyes: No: Sclera Icterus Cardiovascular: Yes: Tachycardia. No: Murmur Respiratory: Yes: CTA Bilaterally Gastrointestinal Inspection: No: Distention ...Auscultate: Yes: Normoactive Bowel Sounds ...Palpate: Yes: Soft. No: Hepatomegaly, Splenomegaly, Tenderness Edema: No (No LE edema) Neurological: Yes: Alert Labs: CBC, BMP 12/19/19 10:00 12/19/19 06:55 Problem List - Problems (1) Anemia Assessment/Plan: Normocytic anemia Low iron indices No overt bleeding history and patient refused digital rectal exam When respiratory issues are resolved, discussed upper endoscopy and colonoscopy to exclude intraluminal sources of GI blood loss such as bleeding blood vessels, ulcers, polyps or cancers of the GI tract. Discussed potential risks of the procedures like but not limited to bleeding, perforation requiring surgery to repair, infection, sedation medication effects all of which could be potentially life threatening. She stated that she would not be having these procedures performed. Added protonix 40mg once daily while on daily ASA therapy Consider hematology evaluation Iron supplementation Advise calling back GI when patient optimized from respiratory standpoint and when patient is amenable to endoscopic evaluation. Code(s): D64.9 - ANEMIA, UNSPECIFIED Qualifiers: Anemia type: unspecified type Qualified Code(s): D64.9 - Anemia, unspecified
[2019-12-20] MEDS: PANTOPRAZOLE 40 MG TABLET PO SCH (18:02)
[2019-12-20] MEDS: ATORVASTATIN CA 10 MG TABLET (FP) PO SCH (21:03)
--- NOTE | 2019-12-20 21:04 | PN ---
Progress Note, Physician History of Present Illness: AWAKE, ALERT IN BED C/O DYSPNEA AT REST BUT APPEARS COMFORTABLE ON RA AFEBRILE NO URINARY TRACT COMPLAINTS URINE C/S E COLI - Current Medication List Current Medications: Active Medications Acetaminophen (Tylenol -) 1,000 mg PO Q6H PRN PRN Reason: PAIN 1-3 Last Admin: 12/19/19 13:14 Dose: 1,000 mg Documented by: Albuterol/Ipratropium (Duoneb -) 1 amp NEB RQID [facility] Last Admin: 12/20/19 20:01 Dose: 1 amp Documented by: Aspirin (Asa -) 81 mg PO DAILY [facility] Last Admin: 12/20/19 10:38 Dose: 81 mg Documented by: Atorvastatin Calcium (Lipitor -) 10 mg PO HS [facility] Last Admin: 12/20/19 21:03 Dose: 10 mg Documented by: Budesonide/Formoterol Fumarate (Symbicort 160/4.5mcg -) 2 puff IH BID [facility] Last Admin: 12/20/19 21:03 Dose: 2 puff Documented by: Heparin Sodium (Porcine) (Heparin -) 5,000 unit SQ TID [facility] Last Admin: 12/20/19 21:02 Dose: 5,000 unit Documented by: Ceftriaxone Sodium 1 gm/ (Dextrose) 50 mls @ 200 mls/hr IVPB DAILY [facility]; Protocol Last Admin: 12/20/19 10:38 Dose: 200 mls/hr Documented by: Insulin Aspart (Novolog Vial Sliding Scale -) 1 vial SQ Q4H [facility]; Protocol Last Admin: 12/20/19 18:02 Dose: 4 units Documented by: Insulin Detemir (Levemir Vial) 15 units SQ BID@0700,2200 [facility] Last Admin: 12/20/19 21:02 Dose: 15 units Documented by: Pantoprazole Sodium (Protonix -) 40 mg PO DAILY [facility] Last Admin: 12/20/19 18:02 Dose: 40 mg Documented by: Quetiapine Fumarate (Seroquel -) 200 mg PO TID [facility] Last Admin: 12/20/19 21:03 Dose: 200 mg Documented by: Sitagliptin Phosphate (Januvia -) 50 mg PO ACBK [facility] Last Admin: 12/20/19 06:25 Dose: 50 mg Documented by: Venlafaxine HCl (Effexor Xr -) 150 mg PO DAILY [facility] Last Admin: 12/20/19 10:38 Dose: 150 mg Documented by: - Objective Vital Signs: Vital Signs Temperature 98 F 12/20/19 11:00 Pulse Rate 104 H 12/20/19 11:00 Respiratory Rate 18 12/20/19 20:17 Blood Pressure 95/67 12/20/19 11:00 O2 Sat by Pulse Oximetry (%) 95 12/20/19 20:17 Constitutional: Yes: No Distress Eyes: Yes: Conjunctiva Clear Cardiovascular: Yes: Regular Rate and Rhythm, S1, S2 Respiratory: Yes: Diminished Gastrointestinal: Yes: Normal Bowel Sounds, Soft Edema: No Labs: CBC, BMP 12/19/19 10:00 12/19/19 06:55 Assessment/Plan EXACERBATION COPD UTI DM CKD CONTINUE CEFTRIAXONE
[2019-12-21] MEDS: INSULIN SLIDING SCALE (NOVOLOG) 1 VIAL SQ SCH ×6 (02:09→22:00)
[2019-12-21] MEDS: HEPARIN NA (PORCINE) 5,000 UNITS/ML 1ML VIAL SQ SCH ×3 (06:14→21:04)
[2019-12-21] MEDS: INSULIN (LEVEMIR) 100 UNITS/ML UNITS SQ SCH ×2 (06:14→21:06)
[2019-12-21] MEDS: QUEtiapine FUMARATE 200 MG TABLET PO SCH ×3 (06:14→21:06)
[2019-12-21] MEDS: sitaGLIPtin PHOSPHATE 50 MG TABLET PO SCH (06:14)
[2019-12-21] MEDS: ALBUTEROL SO4 2.5/IPRATROPIUM 0.5 INH SOL 3 ML VIAL.NEB. NEB SCH ×4 (07:25→19:56)
[2019-12-21] MEDS ORDERED: DEXTROSE 5%-WATER - 50 ML IVPB ONE (09:47)
[2019-12-21] MEDS ORDERED: cefTRIAXone SODIUM 1 GM VIAL ONE (09:47)
[2019-12-21] MEDS: ASPIRIN 81 MG CHEWABLE TABLETS PO SCH (09:49)
[2019-12-21] MEDS: PANTOPRAZOLE 40 MG TABLET PO SCH (09:49)
[2019-12-21] MEDS: VENLAFAXINE HCL 75 MG E.R. CAPSULES PO SCH (09:49)
[2019-12-21] MEDS: CEFTRIAXONE 1 GM in DEXTROSE 5%-WATER - 50 ML IVPB SCH (09:50)
[2019-12-21] MEDS: BUDESONIDE/FORMETEROL FUMARATE 160/4.5 mcg INHALER IH SCH ×2 (09:50→21:13)
[2019-12-21] MEDS: ACETAMINOPHEN 500 MG TABLET (FP) PO PRN (09:56)
--- NOTE | 2019-12-21 10:06 | DS ---
Physical Examination Vital Signs: Vital Signs Temperature 99.3 F 12/21/19 06:00 Pulse Rate 103 H 12/21/19 06:00 Respiratory Rate 18 12/21/19 06:00 Blood Pressure 120/64 12/21/19 06:00 O2 Sat by Pulse Oximetry (%) 95 12/21/19 06:00 Cardiovascular: Yes: Regular Rate and Rhythm Respiratory: Yes: Regular, CTA Bilaterally Gastrointestinal: Yes: Normal Bowel Sounds, Soft. No: Tenderness Labs: CBC, BMP 12/19/19 10:00 12/19/19 06:55 Discharge Summary Problems reviewed: Yes Reason For Visit: HYPERGLYCEMIA, ACUTE EXACERBATION OF CHRONIC Current Active Problems Anemia (Acute) COPD exacerbation (Acute) Duodenal diverticulum (Acute) Hyperglycemia (Acute) Leukocytosis (Acute) Hospital Course: - Problems (1) DKA (diabetic ketoacidoses) Assessment/Plan: Start levemir ss ivf endo consult a1c Code(s): E11.10 - TYPE 2 DIABETES MELLITUS WITH KETOACIDOSIS WITHOUT COMA Qualifiers: Diabetes mellitus type: type 2 Diabetes mellitus complication detail: without coma Qualified Code(s): E11.10 - Type 2 diabetes mellitus with ketoacidosis without coma (2) Leukocytosis Assessment/Plan: Maybe reactive r/o uti-bacteremia cultures Microbiology 12/17/19 21:15 Urine - Urine Clean Catch Urine Culture - Final Escherichia Coli 12/18/19 06:30 Blood - Peripheral Venous Blood Culture - Preliminary NO GROWTH OBTAINED AFTER 48 HOURS, INCUBATION TO CONTINUE FOR 3 DAYS. 12/18/19 06:40 Blood - Peripheral Venous Blood Culture - Preliminary NO GROWTH OBTAINED AFTER 48 HOURS, INCUBATION TO CONTINUE FOR 3 DAYS. iv abx--to po ceftin id consult Code(s): D72.829 - ELEVATED WHITE BLOOD CELL COUNT, UNSPECIFIED (3) Hyperglycemia Assessment/Plan: as above Code(s): R73.9 - HYPERGLYCEMIA, UNSPECIFIED (4) COPD (chronic obstructive pulmonary disease) Assessment/Plan: pulm consult Code(s): J44.9 - CHRONIC OBSTRUCTIVE PULMONARY DISEASE, UNSPECIFIED (5) Dyspnea Assessment/Plan: maybe due to above monitor cxr nad Code(s): R06.00 - DYSPNEA, UNSPECIFIED (6) Anemia Assessment/Plan: maybe dilutional repeat labs--refuses follow trends gi consult Code(s): D64.9 - ANEMIA, UNSPECIFIED Qualifiers: Anemia type: unspecified type Qualified Code(s): D64.9 - Anemia, unspecified (7) Duodenal diverticulum Assessment/Plan: ct scan refused gi consult appreciated--refusing endoscopy Code(s): K57.10 - DVRTCLOS OF SM INT W/O PERFORATION OR ABSCESS W/O BLEEDING Condition: Stable - Instructions Referrals: Taco Kc MD [Primary Care Provider] - Disposition: [facility] - Home Medications Comprehensive Discharge Medication List: Ambulatory Orders Aspirin [ASA -] 81 mg PO DAILY 09/14/19 Quetiapine Fumarate [Seroquel -] 200 mg PO TID 09/14/19 Simvastatin [Zocor] 20 mg PO HS 09/14/19 Sitagliptin Phosphate [Januvia] 100 mg PO DAILY 09/14/19 Venlafaxine HCl ER [Effexor Xr -] 150 mg PO DAILY 09/14/19 Walker [Ultra-Light Rollator] 1 each MC DAILY #1 each 09/14/19 Acetaminophen [Tylenol .Extra-Strength -] 1,000 mg PO Q6H PRN tablet 12/21/19 Albuterol 2.5/Ipratropium 0.5 [Duoneb -] 1 amp NEB RQID amp 12/21/19 Budesonide/Formeterol Fumarate [SYMBICORT 160/4.5mcg -] 2 puff IH BID inhaler 12/21/19 Heparin - 5,000 unit SQ TID vial 12/21/19 Insulin (Levemir) [Levemir Vial] 15 units SQ BID@0700,2200 units 12/21/19 Insulin Sliding Scale [Novolog Vial Sliding Scale -] 1 vial SQ Q4H units 12/21/19 Pantoprazole Sodium [Protonix -] 40 mg PO DAILY tablet.ec 12/21/19
--- NOTE | 2019-12-21 10:09 | DS ---
Physical Examination Vital Signs: Vital Signs Temperature 99.3 F 12/21/19 06:00 Pulse Rate 103 H 12/21/19 06:00 Respiratory Rate 18 12/21/19 06:00 Blood Pressure 120/64 12/21/19 06:00 O2 Sat by Pulse Oximetry (%) 95 12/21/19 06:00 Labs: CBC, BMP 12/19/19 10:00 12/19/19 06:55 Discharge Summary Problems reviewed: Yes Reason For Visit: HYPERGLYCEMIA, ACUTE EXACERBATION OF CHRONIC Current Active Problems Anemia (Acute) COPD exacerbation (Acute) Duodenal diverticulum (Acute) Hyperglycemia (Acute) Leukocytosis (Acute) Hospital Course: - Problems (1) DKA (diabetic ketoacidoses) Assessment/Plan: Start levemir ss ivf endo consult a1c Code(s): E11.10 - TYPE 2 DIABETES MELLITUS WITH KETOACIDOSIS WITHOUT COMA Qualifiers: Diabetes mellitus type: type 2 Diabetes mellitus complication detail: without coma Qualified Code(s): E11.10 - Type 2 diabetes mellitus with ketoacidosis without coma (2) Leukocytosis Assessment/Plan: Maybe reactive r/o uti-bacteremia cultures Microbiology 12/17/19 21:15 Urine - Urine Clean Catch Urine Culture - Final Escherichia Coli 12/18/19 06:30 Blood - Peripheral Venous Blood Culture - Preliminary NO GROWTH OBTAINED AFTER 48 HOURS, INCUBATION TO CONTINUE FOR 3 DAYS. 12/18/19 06:40 Blood - Peripheral Venous Blood Culture - Preliminary NO GROWTH OBTAINED AFTER 48 HOURS, INCUBATION TO CONTINUE FOR 3 DAYS. iv abx--to po ceftin id consult Code(s): D72.829 - ELEVATED WHITE BLOOD CELL COUNT, UNSPECIFIED (3) Hyperglycemia Assessment/Plan: as above Code(s): R73.9 - HYPERGLYCEMIA, UNSPECIFIED (4) COPD (chronic obstructive pulmonary disease) Assessment/Plan: pulm consult Code(s): J44.9 - CHRONIC OBSTRUCTIVE PULMONARY DISEASE, UNSPECIFIED (5) Dyspnea Assessment/Plan: maybe due to above monitor cxr nad Code(s): R06.00 - DYSPNEA, UNSPECIFIED (6) Anemia Assessment/Plan: maybe dilutional repeat labs--refuses follow trends gi consult Code(s): D64.9 - ANEMIA, UNSPECIFIED Qualifiers: Anemia type: unspecified type Qualified Code(s): D64.9 - Anemia, unspecified (7) Duodenal diverticulum Assessment/Plan: ct scan refused gi consult appreciated--refusing endoscopy Code(s): K57.10 - DVRTCLOS OF SM INT W/O PERFORATION OR ABSCESS W/O BLEEDING Condition: Stable - Instructions Referrals: Taco Kc MD [Primary Care Provider] - [facility] - Home Medications Comprehensive Discharge Medication List: Ambulatory Orders Aspirin [ASA -] 81 mg PO DAILY 09/14/19 Quetiapine Fumarate [Seroquel -] 200 mg PO TID 09/14/19 Simvastatin [Zocor] 20 mg PO HS 09/14/19 Sitagliptin Phosphate [Januvia] 100 mg PO DAILY 09/14/19 Venlafaxine HCl ER [Effexor Xr -] 150 mg PO DAILY 09/14/19 Walker [Ultra-Light Rollator] 1 each MC DAILY #1 each 09/14/19 Acetaminophen [Tylenol .Extra-Strength -] 1,000 mg PO Q6H PRN tablet 12/21/19 Albuterol 2.5/Ipratropium 0.5 [Duoneb -] 1 amp NEB RQID amp 12/21/19 Budesonide/Formeterol Fumarate [SYMBICORT 160/4.5mcg -] 2 puff IH BID inhaler 12/21/19 Cefuroxime Axetil [Ceftin -] 250 mg PO BID tablet 12/21/19 Heparin - 5,000 unit SQ TID vial 12/21/19 Insulin (Levemir) [Levemir Vial] 15 units SQ BID@0700,2200 units 12/21/19 Insulin Sliding Scale [Novolog Vial Sliding Scale -] 1 vial SQ Q4H units 12/21/19 Pantoprazole Sodium [Protonix -] 40 mg PO DAILY tablet.ec 12/21/19
[2019-12-21 11:19] LABS: BASO % 0.7 % (0-2.0); EOS % 0.7 % (0-4.5); HEMATOCRIT 28.3 % (32.4-45.2); HEMOGLOBIN 9.3 GM/dL (10.7-15.3); LYMPH % 21.9 % (8-40); MCH 29.5 pg (25.7-33.7); MEAN CELL VOLUME 89.2 fl (80-96); MONO % 10.3 % (3.8-10.2); NEUT % 66.4 % (42.8-82.8); PLATELET COUNT 146 K/MM3 (134-434); RBC 3.17 M/mm3 (3.60-5.2); RDW 13.9 % (11.6-15.6); WHITE BLOOD COUNT 6.3 K/mm3 (4.0-10.0)
[2019-12-21 11:34] LABS: POTASSIUM 4.2 mmol/L (3.5-5.1)
[2019-12-21 11:36] LABS: ALBUMIN 2.2 g/dl (3.4-5.0); BLOOD UREA NITROGEN 25.1 mg/dL (7-18); CALCIUM 8.7 mg/dL (8.5-10.1)
[2019-12-21 11:40] LABS: CREATININE 1.7 mg/dL (0.55-1.3)
[2019-12-21 11:41] LABS: BILIRUBIN,TOTAL 0.2 mg/dL (0.2-1)
[2019-12-21] MEDS ORDERED: methylPREDNISolone NA SUCC 40 MG/1 ML VIAL IVPUSH SCH (11:45)
--- NOTE | 2019-12-21 11:45 | PN ---
Progress Note (short form) - Note Progress Note: PULMONARY VSS/AFEBRILE RESTING COMFORTABLY IN BED PALE/ANICTERIC B/L ANTERIOR CLEAR BREATH SOUNDS S1S2 BS+ NO EDEMA LABS/MEDS/NOTES/IMAGES REVIEWED IMP DYSPNEA COPD WITH ACUTE EXACERBATION RESOLVING HYPERGLYCEMIA POORLY CONTROLLED DM ACUTE ON CKD HTN SCHIZOAFFECTIVE DISORDER HYPONATREMIA PLAN SUPPLEMENTAL O2 INHALED BRONCHODILATORS GLYCEMIC CONTROL IVF NEEDED LOW DOSE CHEST CT FOR LUNG CANCER SCREENING OUTPATIENT PFTS DR CANTU
[2019-12-21] MEDS: CEFUROXIME AXETIL 250 MG TABLET PO SCH ×2 (13:59→21:06)
--- NOTE | 2019-12-21 14:28 | PN ---
Progress Note, Physician History of Present Illness: AWAKE, ALERT IN BED C/O DYSPNEA AT REST BUT APPEARS COMFORTABLE ON RA AFEBRILE NO URINARY TRACT COMPLAINTS URINE C/S E COLI - Current Medication List Current Medications: Active Medications Acetaminophen (Tylenol -) 1,000 mg PO Q6H PRN PRN Reason: PAIN 1-3 Last Admin: 12/21/19 09:56 Dose: 1,000 mg Documented by: Albuterol/Ipratropium (Duoneb -) 1 amp NEB RQID [facility] Last Admin: 12/21/19 11:29 Dose: 1 amp Documented by: Aspirin (Asa -) 81 mg PO DAILY [facility] Last Admin: 12/21/19 09:49 Dose: 81 mg Documented by: Atorvastatin Calcium (Lipitor -) 10 mg PO HS [facility] Last Admin: 12/20/19 21:03 Dose: 10 mg Documented by: Budesonide/Formoterol Fumarate (Symbicort 160/4.5mcg -) 2 puff IH BID [facility] Last Admin: 12/21/19 09:50 Dose: 2 puff Documented by: Cefuroxime Axetil (Ceftin -) 250 mg PO BID [facility] Last Admin: 12/21/19 13:59 Dose: 250 mg Documented by: Heparin Sodium (Porcine) (Heparin -) 5,000 unit SQ TID [facility] Last Admin: 12/21/19 13:59 Dose: 5,000 unit Documented by: Insulin Aspart (Novolog Vial Sliding Scale -) 1 vial SQ Q4H [facility]; Protocol Last Admin: 12/21/19 11:56 Dose: 8 units Documented by: Insulin Detemir (Levemir Vial) 15 units SQ BID@0700,2200 [facility] Last Admin: 12/21/19 06:14 Dose: 15 units Documented by: Pantoprazole Sodium (Protonix -) 40 mg PO DAILY [facility] Last Admin: 12/21/19 09:49 Dose: 40 mg Documented by: Quetiapine Fumarate (Seroquel -) 200 mg PO TID [facility] Last Admin: 12/21/19 13:59 Dose: 200 mg Documented by: Sitagliptin Phosphate (Januvia -) 50 mg PO ACBK [facility] Last Admin: 12/21/19 06:14 Dose: 50 mg Documented by: Venlafaxine HCl (Effexor Xr -) 150 mg PO DAILY [facility] Last Admin: 12/21/19 09:49 Dose: 150 mg Documented by: - Objective Vital Signs: Vital Signs Temperature 96.6 F L 12/21/19 14:14 Pulse Rate 104 H 12/21/19 14:14 Respiratory Rate 16 12/21/19 14:14 Blood Pressure 96/56 L 12/21/19 14:14 O2 Sat by Pulse Oximetry (%) 96 12/21/19 14:14 Constitutional: Yes: No Distress Eyes: Yes: Conjunctiva Clear Cardiovascular: Yes: Regular Rate and Rhythm, S1, S2 Respiratory: Yes: CTA Bilaterally Gastrointestinal: Yes: Normal Bowel Sounds, Soft. No: Tenderness Edema: No Labs: CBC, BMP 12/21/19 10:23 12/21/19 10:23 Assessment/Plan EXACERBATION COPD UTI DM CKD SUBSTITUTE CEFTIN 500MG PO BID X 7D
[2019-12-21] MEDS ORDERED: INSULIN (NOVOLOG) ASPART 100 UNITS/ML 10ML VIAL ONE (21:00)
[2019-12-21] MEDS: ATORVASTATIN CA 10 MG TABLET (FP) PO SCH (21:06)
[2019-12-22] MEDS: INSULIN SLIDING SCALE (NOVOLOG) 1 VIAL SQ SCH ×5 (03:10→17:50)
[2019-12-22] MEDS: sitaGLIPtin PHOSPHATE 50 MG TABLET PO SCH (06:15)
[2019-12-22] MEDS: HEPARIN NA (PORCINE) 5,000 UNITS/ML 1ML VIAL SQ SCH ×2 (06:15→13:54)
[2019-12-22] MEDS: QUEtiapine FUMARATE 200 MG TABLET PO SCH ×2 (06:15→13:54)
[2019-12-22] MEDS: INSULIN (LEVEMIR) 100 UNITS/ML UNITS SQ SCH (06:16)
[2019-12-22] MEDS: ALBUTEROL SO4 2.5/IPRATROPIUM 0.5 INH SOL 3 ML VIAL.NEB. NEB SCH ×3 (07:24→15:59)
[2019-12-22] MEDS ORDERED: PT OWN MED DRAWER 7, Y5N ONE (09:18)
[2019-12-22] MEDS: VENLAFAXINE HCL 75 MG E.R. CAPSULES PO SCH (09:21)
[2019-12-22] MEDS: PANTOPRAZOLE 40 MG TABLET PO SCH (09:21)
[2019-12-22] MEDS: CEFUROXIME AXETIL 250 MG TABLET PO SCH (09:21)
[2019-12-22] MEDS: ASPIRIN 81 MG CHEWABLE TABLETS PO SCH (09:21)
[2019-12-22] MEDS: BUDESONIDE/FORMETEROL FUMARATE 160/4.5 mcg INHALER IH SCH (09:25)
--- NOTE | 2019-12-22 10:52 | PN ---
Progress Note (short form) - Note Progress Note: Resting in NAD on RA. No CP or SOB but still with some WALDRON. No acute events overnight. Intake & Output 12/19/19 12/20/19 12/21/19 12/22/19 23:59 23:59 23:59 23:59 Intake Total 960 1190 1170 200 Output Total 1 Balance 959 1190 1170 200 Weight 132 lb 2 oz 136 lb 6 oz 135 lb 4.8 oz Last Vital Signs Temp Pulse Resp BP Pulse Ox 98.2 F 96 H 18 109/55 L 98 12/21/19 22:00 12/22/19 06:48 12/22/19 06:48 12/22/19 06:48 12/21/19 22:00 Active Medications Acetaminophen (Tylenol -) 1,000 mg PO Q6H PRN PRN Reason: PAIN 1-3 Last Admin: 12/21/19 09:56 Dose: 1,000 mg Documented by: Albuterol/Ipratropium (Duoneb -) 1 amp NEB RQID [facility] Last Admin: 12/22/19 07:24 Dose: 1 amp Documented by: Aspirin (Asa -) 81 mg PO DAILY [facility] Last Admin: 12/22/19 09:21 Dose: 81 mg Documented by: Atorvastatin Calcium (Lipitor -) 10 mg PO HS [facility] Last Admin: 12/21/19 21:06 Dose: 10 mg Documented by: Budesonide/Formoterol Fumarate (Symbicort 160/4.5mcg -) 2 puff IH BID [facility] Last Admin: 12/22/19 09:25 Dose: 2 puff Documented by: Cefuroxime Axetil (Ceftin -) 250 mg PO BID [facility] Last Admin: 12/22/19 09:21 Dose: 250 mg Documented by: Heparin Sodium (Porcine) (Heparin -) 5,000 unit SQ TID [facility] Last Admin: 12/22/19 06:15 Dose: 5,000 unit Documented by: Insulin Aspart (Novolog Vial Sliding Scale -) 1 vial SQ Q4H [facility]; Protocol Last Admin: 12/22/19 06:16 Dose: 4 units Documented by: Insulin Detemir (Levemir Vial) 15 units SQ BID@0700,2200 [facility] Last Admin: 12/22/19 06:16 Dose: 15 units Documented by: Pantoprazole Sodium (Protonix -) 40 mg PO DAILY [facility] Last Admin: 12/22/19 09:21 Dose: 40 mg Documented by: Quetiapine Fumarate (Seroquel -) 200 mg PO TID [facility] Last Admin: 12/22/19 06:15 Dose: 200 mg Documented by: Sitagliptin Phosphate (Januvia -) 50 mg PO ACBK [facility] Last Admin: 12/22/19 06:15 Dose: 50 mg Documented by: Venlafaxine HCl (Effexor Xr -) 150 mg PO DAILY [facility] Last Admin: 12/22/19 09:21 Dose: 150 mg Documented by: NAD B/L ANTERIOR CLEAR BREATH SOUNDS S1S2 BS+ NO EDEMA LABS/MEDS/NOTES/IMAGES REVIEWED IMP DYSPNEA COPD WITH ACUTE EXACERBATION RESOLVING HYPERGLYCEMIA POORLY CONTROLLED DM ACUTE ON CKD HTN SCHIZOAFFECTIVE DISORDER HYPONATREMIA PLAN NO SMOKING BD TX PRN OUTPATIENT PFTS DC PLANNING TO REHAB DR CARBAJAL
--- NOTE | 2019-12-22 12:25 | PN ---
Progress Note, Physician Chief Complaint: COPD WITH ACUTE EXACERBATION RESOLVING DM II ELIZABETH SCHIZOAFFECTIVE DISORDER HYPONATREMIA - Current Medication List Current Medications: Active Medications Acetaminophen (Tylenol -) 1,000 mg PO Q6H PRN PRN Reason: PAIN 1-3 Last Admin: 12/21/19 09:56 Dose: 1,000 mg Documented by: Albuterol/Ipratropium (Duoneb -) 1 amp NEB RQID [facility] Last Admin: 12/22/19 11:15 Dose: 1 amp Documented by: Aspirin (Asa -) 81 mg PO DAILY [facility] Last Admin: 12/22/19 09:21 Dose: 81 mg Documented by: Atorvastatin Calcium (Lipitor -) 10 mg PO HS [facility] Last Admin: 12/21/19 21:06 Dose: 10 mg Documented by: Budesonide/Formoterol Fumarate (Symbicort 160/4.5mcg -) 2 puff IH BID [facility] Last Admin: 12/22/19 09:25 Dose: 2 puff Documented by: Cefuroxime Axetil (Ceftin -) 250 mg PO BID [facility] Last Admin: 12/22/19 09:21 Dose: 250 mg Documented by: Heparin Sodium (Porcine) (Heparin -) 5,000 unit SQ TID [facility] Last Admin: 12/22/19 06:15 Dose: 5,000 unit Documented by: Insulin Aspart (Novolog Vial Sliding Scale -) 1 vial SQ Q4H [facility]; Protocol Last Admin: 12/22/19 12:04 Dose: 6 units Documented by: Insulin Detemir (Levemir Vial) 15 units SQ BID@0700,2200 [facility] Last Admin: 12/22/19 06:16 Dose: 15 units Documented by: Pantoprazole Sodium (Protonix -) 40 mg PO DAILY [facility] Last Admin: 12/22/19 09:21 Dose: 40 mg Documented by: Quetiapine Fumarate (Seroquel -) 200 mg PO TID [facility] Last Admin: 12/22/19 06:15 Dose: 200 mg Documented by: Sitagliptin Phosphate (Januvia -) 50 mg PO ACBK [facility] Last Admin: 12/22/19 06:15 Dose: 50 mg Documented by: Venlafaxine HCl (Effexor Xr -) 150 mg PO DAILY [facility] Last Admin: 12/22/19 09:21 Dose: 150 mg Documented by: - Objective Vital Signs: Vital Signs Temperature 98.2 F 12/21/19 22:00 Pulse Rate 96 H 12/22/19 06:48 Respiratory Rate 18 12/22/19 06:48 Blood Pressure 109/55 L 12/22/19 06:48 O2 Sat by Pulse Oximetry (%) 95 12/22/19 10:00 Labs: CBC, BMP 12/21/19 10:23 12/21/19 10:23
--- NOTE | 2019-12-22 12:26 | DS ---
Physical Examination Vital Signs: Vital Signs Temperature 98.2 F 12/21/19 22:00 Pulse Rate 96 H 12/22/19 06:48 Respiratory Rate 18 12/22/19 06:48 Blood Pressure 109/55 L 12/22/19 06:48 O2 Sat by Pulse Oximetry (%) 95 12/22/19 10:00 Findings/Remarks: Patient is a 69 year old female with a significant past medical history of CKD, DM2, HTN, COPD, schizoaffective disorder, depression, presenting with complaint of SOB x 4 days. She was found to have hyperglycemia, pseudohyponatremia, hyperkalemia, UTI, and sepsis likely from uti VS pna. Patient also likely having acute exacerbation of COPD. Pt states she has been feeling sob/bailon associated with chest discomfort. denies any fever/chills, n/v, le edema, leg swelling, hemoptysis, urinary symptoms. Patient endorses she has not taken her g limeperide and januvia in a long time but couldn't quantify how many days. Constitutional: Yes: Well Nourished, No Distress, Calm Cardiovascular: Yes: Regular Rate and Rhythm Respiratory: Yes: Regular, CTA Bilaterally Gastrointestinal: Yes: Normal Bowel Sounds, Soft Renal/: Yes: WNL Musculoskeletal: Yes: WNL Extremities: Yes: WNL Edema: No Peripheral Pulses WNL: Yes Neurological: Yes: Alert, Oriented Psychiatric: Yes: Alert, Oriented Labs: CBC, BMP 12/21/19 10:23 12/21/19 10:23 Discharge Summary Problems reviewed: Yes Reason For Visit: HYPERGLYCEMIA, ACUTE EXACERBATION OF CHRONIC Current Active Problems Anemia (Acute) COPD exacerbation (Acute) Duodenal diverticulum (Acute) Hyperglycemia (Acute) Leukocytosis (Acute) Hospital Course: - Problems (1) DKA (diabetic ketoacidoses) Assessment/Plan: Start levemir ss ivf endo consult a1c Code(s): E11.10 - TYPE 2 DIABETES MELLITUS WITH KETOACIDOSIS WITHOUT COMA Qualifiers: Diabetes mellitus type: type 2 Diabetes mellitus complication detail: with out coma Qualified Code(s): E11.10 - Type 2 diabetes mellitus with ketoac idosis without coma (2) Leukocytosis Assessment/Plan: Maybe reactive r/o uti-bacteremia cultures Microbiology 12/17/19 21:15 Urine - Urine Clean Catch Urine Culture - Final Escherichia Coli 12/18/19 06:30 Blood - Peripheral Venous Blood Culture - Preliminary NO GROWTH OBTAINED AFTER 48 HOURS, INCUBATION TO CONTINUE FOR 3 DAYS. 12/18/19 06:40 Blood - Peripheral Venous Blood Culture - Preliminary NO GROWTH OBTAINED AFTER 48 HOURS, INCUBATION TO CONTINUE FOR 3 DAYS. iv abx--to po ceftin id consult Code(s): D72.829 - ELEVATED WHITE BLOOD CELL COUNT, UNSPECIFIED (3) Hyperglycemia Assessment/Plan: as above Code(s): R73.9 - HYPERGLYCEMIA, UNSPECIFIED (4) COPD (chronic obstructive pulmonary disease) Assessment/Plan: pulm consult Code(s): J44.9 - CHRONIC OBSTRUCTIVE PULMONARY DISEASE, UNSPECIFIED (5) Dyspnea Assessment/Plan: maybe due to above monitor cxr nad Code(s): R06.00 - DYSPNEA, UNSPECIFIED (6) Anemia Assessment/Plan: maybe dilutional repeat labs--refuses follow trends gi consult Code(s): D64.9 - ANEMIA, UNSPECIFIED Qualifiers: Anemia type: unspecified type Qualified Code(s): D64.9 - Anemia, unspecified (7) Duodenal diverticulum Assessment/Plan: ct scan refused gi consult appreciated--refusing endoscopy Code(s): K57.10 - DVRTCLOS OF SM INT W/O PERFORATION OR ABSCESS W/O BLEEDING Condition: Stable - Instructions Referrals: Taco Kc MD [Primary Care Provider] - Disposition: RETIREMENT FACILITY - Home Medications Comprehensive Discharge Medication List: Ambulatory Orders Aspirin [ASA -] 81 mg PO DAILY 09/14/19 Quetiapine Fumarate [Seroquel -] 200 mg PO TID 09/14/19 Simvastatin [Zocor] 20 mg PO HS 09/14/19 Sitagliptin Phosphate [Januvia] 100 mg PO DAILY 09/14/19 Venlafaxine HCl ER [Effexor Xr -] 150 mg PO DAILY 09/14/19 Walker [Ultra-Light Rollator] 1 each MC DAILY #1 each 09/14/19 Acetaminophen [Tylenol .Extra-Strength -] 1,000 mg PO Q6H PRN tablet 12/21/19 Albuterol 2.5/Ipratropium 0.5 [Duoneb -] 1 amp NEB RQID amp 12/21/19 Budesonide/Formeterol Fumarate [SYMBICORT 160/4.5mcg -] 2 puff IH BID inhaler 12/21/19 Cefuroxime Axetil [Ceftin -] 250 mg PO BID tablet 12/21/19 Heparin - 5,000 unit SQ TID vial 12/21/19 Insulin (Levemir) [Levemir Vial] 15 units SQ BID@0700,2200 units 12/21/19 Insulin Sliding Scale [Novolog Vial Sliding Scale -] 1 vial SQ Q4H units 12/21/19 Pantoprazole Sodium [Protonix -] 40 mg PO DAILY tablet.ec 12/21/19 Prescription Drug Monitoring Program (I-STOP) results: I-STOP reviewed and no issues identified
[2019-12-22 14:22] VITALS: BP 113/64; PULSE 107; TEMP 99.3
== END 2019-12-22 19:17 | DRG 871 ==
LOC: JER 16:17 → JERBED 21:24 → J6S 12-18 02:47
PROVIDERS: ADMIT Internal Medicine; ATTEND Family Medicine
DX: A41.51 Sepsis due to Escherichia coli [E. coli] (principal); E11.10 Type 2 diabetes mellitus with ketoacidosis without coma; J44.1 Chronic obstructive pulmonary disease with (acute) exacerbation; N17.9 Acute kidney failure, unspecified; N39.0 Urinary tract infection, site not specified; E87.1 Hypo-osmolality and hyponatremia; K57.10 Diverticulosis of small intestine without perforation or abscess without bleeding; F25.1 Schizoaffective disorder, depressive type; D64.9 Anemia, unspecified; E11.65 Type 2 diabetes mellitus with hyperglycemia; I12.9 Hypertensive chronic kidney disease with stage 1 through stage 4 chronic kidney disease, or unspecified chronic kidney disease; E11.22 Type 2 diabetes mellitus with diabetic chronic kidney disease; N18.9 Chronic kidney disease, unspecified; E11.40 Type 2 diabetes mellitus with diabetic neuropathy, unspecified; E87.5 Hyperkalemia; D72.829 Elevated white blood cell count, unspecified
CPT/HCPCS: 36415; 71045-TC-FY; 71250-TC; 80048; 80053; 80061; 81003; 82010; 82728; 82803; 82962; 83036; 83540; 83550; 83721; 83880; 84100; 84443; 84484; 85025; 85027; 87040; 87086; 87186; 93005; 93010; 94640; 97116-GP; 97162-GP; 99285-25; C9803; J1644; U0003

== ENCOUNTER 2020-04-28 06:16 | Inpatient (IN) | payer OTHER ==
[2020-04-28] MEDS ORDERED: SODIUM CHLORIDE 1,000 ML IV STA (09:00)
[2020-04-28] MEDS ORDERED: clonazePAM 0.5 MG TABLET PO ONE (09:04)
[2020-04-28] MEDS ORDERED: QUEtiapine FUMARATE 200 MG TABLET PO ONE (09:04)
[2020-04-28] MEDS ORDERED: clonazePAM 0.5 MG TABLET ONE (09:20)
[2020-04-28 10:11] LABS: BASO % 0.3 % (0-2.0); EOS % 0.4 % (0-4.5); HEMATOCRIT 26.8 % (32.4-45.2); HEMOGLOBIN 8.7 GM/dL (10.7-15.3); LYMPH % 10.6 % (8-40); MCH 27.6 pg (25.7-33.7); MCHC 32.4 g/dl (32.0-36.0); MEAN CELL VOLUME 85.3 fl (80-96); MEAN PLT VOLUME 9.4 fl (7.5-11.1); NEUT % 77.7 % (42.8-82.8); PLATELET COUNT 143 K/MM3 (134-434); RBC 3.15 M/mm3 (3.60-5.2); RDW 16.5 % (11.6-15.6); WHITE BLOOD COUNT 10.8 K/mm3 (4.0-10.0)
[2020-04-28 10:23] LABS: INR 1.1 (0.83-1.09); PROTHROMBIN TIME (PATIENT) 13.5 SEC (9.7-13.0)
[2020-04-28 10:25] LABS: ACTIVATED PTT 33.9 SECONDS (25.2-36.5)
[2020-04-28 10:27] LABS: POTASSIUM 4.6 mmol/L (3.5-5.1)
[2020-04-28 10:29] LABS: ALBUMIN 3.3 g/dl (3.4-5.0); CALCIUM 8.8 mg/dL (8.5-10.1)
[2020-04-28 10:30] LABS: BLOOD UREA NITROGEN 58.1 mg/dL (7-18); EPI CELLS 7 /uL (0-25.1); HYALINE CASTS 0 /uL (0-3.1); URINE APPEARANCE CLOUDY; URINE BACTERIA >9,000 /uL (0-1359); URINE BILIRUBIN NEGATIVE (NEGATIVE); URINE COLOR YELLOW; URINE GLUCOSE (UA) NEGATIVE (NEGATIVE); URINE KETONE NEGATIVE (NEGATIVE); URINE LEUK ESTERASE 1+ (NEGATIVE); URINE NITRITE NEGATIVE (NEGATIVE); URINE PROTEIN 2+ (NEGATIVE); URINE RBC 23 /uL (0-23.9); URINE UROBILINOGEN 0.2 mg/dL (0.2-1.0); URINE WBC 256 /uL (0-25.8)
[2020-04-28 10:33] LABS: CREATININE 2.2 mg/dL (0.55-1.3)
[2020-04-28 10:34] LABS: BILIRUBIN,TOTAL 0.3 mg/dL (0.2-1); TOT PROT 7.8 g/dl (6.4-8.2)
[2020-04-28] MEDS ORDERED: QUEtiapine FUMARATE 100 MG TABLET (FP) ONE ×2 (14:48→21:15)
[2020-04-28] MEDS: QUEtiapine FUMARATE 200 MG TABLET PO SCH ×2 (14:49→21:18)
[2020-04-28] MEDS: INSULIN SLIDING SCALE (NOVOLOG) 1 VIAL SQ SCH ×2 (17:12→21:34)
[2020-04-28] MEDS ORDERED: SODIUM CHLORIDE 1,000 ML IV SCH (18:15)
[2020-04-28] MEDS: ALBUTEROL SO4 2.5/IPRATROPIUM 0.5 INH SOL 3 ML VIAL.NEB. NEB SCH ×3 (20:44→20:58)
[2020-04-28] MEDS ORDERED: ALBUTEROL SO4 2.5/IPRATROPIUM 0.5 INH SOL 3 ML VIAL.NEB. NEB ONE (20:55)
[2020-04-28] MEDS ORDERED: ATORVASTATIN CA 10 MG TABLET (FP) ONE (21:15)
[2020-04-28] MEDS ORDERED: HEPARIN NA (PORCINE) 5,000 UNITS/ML 1ML VIAL ONE (21:16)
[2020-04-28] MEDS: HEPARIN NA (PORCINE) 5,000 UNITS/ML 1ML VIAL SQ SCH (21:18)
[2020-04-28] MEDS: ATORVASTATIN CA 10 MG TABLET (FP) PO SCH (21:18)
[2020-04-28] MEDS ORDERED: INSULIN (LEVEMIR) 100 UNITS/ML UNITS SQ ONE (21:25)
[2020-04-28] MEDS: INSULIN (LEVEMIR) 100 UNITS/ML UNITS SQ SCH (21:33)
[2020-04-28] MEDS ORDERED: DEXTROSE 5%-WATER - 50 ML IVPB ONE (23:16)
[2020-04-28] MEDS ORDERED: cefTRIAXone SODIUM 1 GM VIAL ONE (23:16)
[2020-04-28] MEDS: CEFTRIAXONE 1 GM in DEXTROSE 5%-WATER - 50 ML IVPB SCH (23:38)
[2020-04-28] MEDS: BUDESONIDE/FORMETEROL FUMARATE 160/4.5 mcg INHALER IH SCH (23:38)
[2020-04-28] MEDS: ACETAMINOPHEN 500 MG TABLET (FP) PO PRN (23:42)
[2020-04-29 04:27] VITALS: BMI 24.2
[2020-04-29] MEDS: QUEtiapine FUMARATE 200 MG TABLET PO SCH ×3 (06:24→21:10)
[2020-04-29] MEDS: INSULIN SLIDING SCALE (NOVOLOG) 1 VIAL SQ SCH ×4 (06:29→21:10)
[2020-04-29] MEDS: INSULIN (LEVEMIR) 100 UNITS/ML UNITS SQ SCH ×2 (06:33→21:13)
[2020-04-29] MEDS: ALBUTEROL SO4 2.5/IPRATROPIUM 0.5 INH SOL 3 ML VIAL.NEB. NEB SCH ×4 (08:05→20:40)
[2020-04-29 09:05] LABS: BASO % 0.3 % (0-2.0); EOS % 1.5 % (0-4.5); HEMATOCRIT 27.2 % (32.4-45.2); HEMOGLOBIN 8.7 GM/dL (10.7-15.3); MCH 27.4 pg (25.7-33.7); MCHC 32.1 g/dl (32.0-36.0); MEAN CELL VOLUME 85.5 fl (80-96); MEAN PLT VOLUME 8.6 fl (7.5-11.1); MONO % 11.4 % (3.8-10.2); NEUT % 72.8 % (42.8-82.8); PLATELET COUNT 146 K/MM3 (134-434); RBC 3.18 M/mm3 (3.60-5.2); RDW 16.6 % (11.6-15.6); WHITE BLOOD COUNT 8.8 K/mm3 (4.0-10.0)
[2020-04-29 09:24] LABS: POTASSIUM 4.6 mmol/L (3.5-5.1)
[2020-04-29 09:29] LABS: CALCIUM 8.9 mg/dL (8.5-10.1)
[2020-04-29 09:30] LABS: BLOOD UREA NITROGEN 42.3 mg/dL (7-18); MAGNESIUM 2.1 mg/dL (1.8-2.4)
[2020-04-29 09:33] LABS: CREATININE 1.6 mg/dL (0.55-1.3)
[2020-04-29 09:34] LABS: BILIRUBIN,TOTAL 0.2 mg/dL (0.2-1); TOT PROT 7.7 g/dl (6.4-8.2)
[2020-04-29] MEDS ORDERED: VENLAFAXINE HCL 75 MG E.R. CAPSULES PO SCH (10:00)
[2020-04-29] MEDS ORDERED: PT OWN MED DRAWER 7, Y5N ONE ×3 (10:11→12:10)
[2020-04-29] MEDS ORDERED: cefTRIAXone SODIUM 1 GM VIAL ONE (10:11)
[2020-04-29] MEDS ORDERED: DEXTROSE 5%-WATER - 50 ML IVPB ONE (10:11)
[2020-04-29] MEDS: ACETAMINOPHEN 500 MG TABLET (FP) PO PRN ×2 (10:37→22:00)
[2020-04-29] MEDS: HEPARIN NA (PORCINE) 5,000 UNITS/ML 1ML VIAL SQ SCH ×2 (10:39→21:09)
[2020-04-29] MEDS: ASPIRIN 81 MG CHEWABLE TABLETS PO SCH (10:39)
[2020-04-29] MEDS: NICOTINE 14 MG/24 HOURS TOPICAL PATCH TD SCH ×2 (10:39→11:10)
[2020-04-29 10:41] LABS: EPI CELLS 2 /uL (0-25.1); HYALINE CASTS 0 /uL (0-3.1); PH,URINE 5.5 (5.0-8.0); URINE APPEARANCE TURBID; URINE BACTERIA 4909 /uL (0-1359); URINE BILIRUBIN NEGATIVE (NEGATIVE); URINE COLOR YELLOW; URINE GLUCOSE (UA) NEGATIVE (NEGATIVE); URINE KETONE NEGATIVE (NEGATIVE); URINE LEUK ESTERASE 3+ (NEGATIVE); URINE NITRITE POSITIVE (NEGATIVE); URINE PROTEIN 2+ (NEGATIVE); URINE RBC 69 /uL (0-23.9); URINE UROBILINOGEN 0.2 mg/dL (0.2-1.0); URINE WBC 4969 /uL (0-25.8)
[2020-04-29] MEDS: PANTOPRAZOLE 40 MG TABLET PO SCH (10:41)
[2020-04-29] MEDS: CEFTRIAXONE 1 GM in DEXTROSE 5%-WATER - 50 ML IVPB SCH (10:41)
[2020-04-29] MEDS: BUDESONIDE/FORMETEROL FUMARATE 160/4.5 mcg INHALER IH SCH ×2 (10:44→21:28)
[2020-04-29] MEDS: FERROUS SO4 325 MG TABLET (FP) PO SCH ×2 (12:16→21:10)
[2020-04-29] MEDS: clonazePAM 0.5 MG TABLET PO PRN ×2 (12:37→21:10)
[2020-04-29] MEDS: VENLAFAXINE HCL 75 MG E.R. CAPSULES PO SCH (13:26)
[2020-04-29] MEDS: ATORVASTATIN CA 10 MG TABLET (FP) PO SCH (21:10)
[2020-04-30] MEDS ORDERED: MELATONIN 5 MG TABLETS PO ONE (03:00)
[2020-04-30] MEDS: INSULIN (LEVEMIR) 100 UNITS/ML UNITS SQ SCH ×2 (06:37→21:40)
[2020-04-30] MEDS: INSULIN SLIDING SCALE (NOVOLOG) 1 VIAL SQ SCH ×4 (06:38→21:40)
[2020-04-30] MEDS: QUEtiapine FUMARATE 200 MG TABLET PO SCH ×3 (06:39→21:29)
[2020-04-30] MEDS: ALBUTEROL SO4 2.5/IPRATROPIUM 0.5 INH SOL 3 ML VIAL.NEB. NEB SCH ×4 (08:20→20:30)
[2020-04-30] MEDS ORDERED: cefTRIAXone SODIUM 1 GM VIAL ONE (09:12)
[2020-04-30] MEDS ORDERED: DEXTROSE 5%-WATER - 50 ML IVPB ONE (09:12)
[2020-04-30] MEDS: HEPARIN NA (PORCINE) 5,000 UNITS/ML 1ML VIAL SQ SCH ×2 (09:41→21:30)
[2020-04-30] MEDS: ASPIRIN 81 MG CHEWABLE TABLETS PO SCH (09:41)
[2020-04-30] MEDS: PANTOPRAZOLE 40 MG TABLET PO SCH (09:42)
[2020-04-30] MEDS: FERROUS SO4 325 MG TABLET (FP) PO SCH ×2 (09:42→21:29)
[2020-04-30] MEDS: CEFTRIAXONE 1 GM in DEXTROSE 5%-WATER - 50 ML IVPB SCH (09:43)
[2020-04-30] MEDS: NICOTINE 14 MG/24 HOURS TOPICAL PATCH TD SCH (09:43)
[2020-04-30] MEDS: BUDESONIDE/FORMETEROL FUMARATE 160/4.5 mcg INHALER IH SCH ×2 (09:44→21:29)
[2020-04-30] MEDS: VENLAFAXINE HCL 75 MG E.R. CAPSULES PO SCH (09:44)
[2020-04-30 13:26] LABS: BASO % 0.3 % (0-2.0); EOS % 3.7 % (0-4.5); HEMATOCRIT 27.9 % (32.4-45.2); HEMOGLOBIN 8.8 GM/dL (10.7-15.3); LYMPH % 24.4 % (8-40); MCH 26.7 pg (25.7-33.7); MCHC 31.4 g/dl (32.0-36.0); MEAN CELL VOLUME 85.1 fl (80-96); MEAN PLT VOLUME 8.9 fl (7.5-11.1); MONO % 10.2 % (3.8-10.2); NEUT % 61.4 % (42.8-82.8); PLATELET COUNT 186 K/MM3 (134-434); RBC 3.28 M/mm3 (3.60-5.2); RDW 16.8 % (11.6-15.6); WHITE BLOOD COUNT 6.9 K/mm3 (4.0-10.0)
[2020-04-30 13:54] LABS: POTASSIUM 4.7 mmol/L (3.5-5.1)
[2020-04-30 13:59] LABS: CALCIUM 9.5 mg/dL (8.5-10.1)
[2020-04-30 14:00] LABS: ALBUMIN 3.2 g/dl (3.4-5.0)
[2020-04-30 14:03] LABS: CREATININE 1.6 mg/dL (0.55-1.3)
[2020-04-30 14:04] LABS: BILIRUBIN,TOTAL 0.3 mg/dL (0.2-1); TOT PROT 8.3 g/dl (6.4-8.2)
[2020-04-30] MEDS: ACETAMINOPHEN 500 MG TABLET (FP) PO PRN (15:00)
[2020-04-30] MEDS: clonazePAM 0.5 MG TABLET PO PRN ×2 (15:00→23:12)
[2020-04-30] MEDS ORDERED: SODIUM CHLORIDE 1,000 ML IV SCH (17:00)
[2020-04-30] MEDS: ATORVASTATIN CA 10 MG TABLET (FP) PO SCH (21:29)
[2020-05-01] MEDS ORDERED: PT OWN MED DRAWER 7, Y5N ONE (05:47)
[2020-05-01] MEDS: QUEtiapine FUMARATE 200 MG TABLET PO SCH ×2 (06:37→13:05)
[2020-05-01] MEDS: INSULIN (LEVEMIR) 100 UNITS/ML UNITS SQ SCH (06:38)
[2020-05-01] MEDS: INSULIN SLIDING SCALE (NOVOLOG) 1 VIAL SQ SCH ×2 (06:39→12:32)
[2020-05-01] MEDS: ALBUTEROL SO4 2.5/IPRATROPIUM 0.5 INH SOL 3 ML VIAL.NEB. NEB SCH ×4 (08:39→13:39)
[2020-05-01] MEDS ORDERED: DEXTROSE 5%-WATER - 50 ML IVPB ONE (10:54)
[2020-05-01] MEDS ORDERED: cefTRIAXone SODIUM 1 GM VIAL ONE (10:54)
[2020-05-01] MEDS: PANTOPRAZOLE 40 MG TABLET PO SCH (11:08)
[2020-05-01] MEDS: FERROUS SO4 325 MG TABLET (FP) PO SCH (11:08)
[2020-05-01] MEDS: HEPARIN NA (PORCINE) 5,000 UNITS/ML 1ML VIAL SQ SCH (11:08)
[2020-05-01] MEDS: VENLAFAXINE HCL 75 MG E.R. CAPSULES PO SCH (11:08)
[2020-05-01] MEDS: ASPIRIN 81 MG CHEWABLE TABLETS PO SCH (11:08)
[2020-05-01] MEDS: NICOTINE 14 MG/24 HOURS TOPICAL PATCH TD SCH ×2 (11:08→11:34)
[2020-05-01] MEDS: CEFTRIAXONE 1 GM in DEXTROSE 5%-WATER - 50 ML IVPB SCH (11:09)
[2020-05-01] MEDS: BUDESONIDE/FORMETEROL FUMARATE 160/4.5 mcg INHALER IH SCH (11:09)
[2020-05-01] MEDS: ACETAMINOPHEN 500 MG TABLET (FP) PO PRN (11:23)
[2020-05-01] MEDS: clonazePAM 0.5 MG TABLET PO PRN (12:34)
[2020-05-01 15:47] VITALS: BP 115/68; PULSE 108; TEMP 99.6
== END 2020-05-01 15:35 | DRG 683 ==
LOC: JER 06:16 → JERBED 11:07 → J5S 21:41
PROVIDERS: ADMIT Family Medicine; ATTEND Family Medicine
DX: N17.9 Acute kidney failure, unspecified (principal); N39.0 Urinary tract infection, site not specified; I12.9 Hypertensive chronic kidney disease with stage 1 through stage 4 chronic kidney disease, or unspecified chronic kidney disease; E11.22 Type 2 diabetes mellitus with diabetic chronic kidney disease; N18.9 Chronic kidney disease, unspecified; J44.9 Chronic obstructive pulmonary disease, unspecified; F25.9 Schizoaffective disorder, unspecified; R00.0 Tachycardia, unspecified; R94.5 Abnormal results of liver function studies; D72.829 Elevated white blood cell count, unspecified; D64.9 Anemia, unspecified; M54.5 Low back pain; F41.8 Other specified anxiety disorders; E66.9 Obesity, unspecified; B96.20 Unspecified Escherichia coli [E. coli] as the cause of diseases classified elsewhere; Z68.24 Body mass index [BMI] 24.0-24.9, adult
CPT/HCPCS: 36415; 71045-TC-FY; 76705-TC; 80053; 81003; 82565; 82962; 83036; 83605; 83735; 84300; 84443; 84484; 85025; 85610; 85730; 87040; 87086; 87186; 93005; 93010; 94640; 97116-GP; 97162-GP; 99285-25; C9803; J1644; U0003

== ENCOUNTER 2020-10-16 13:20 | Inpatient (IN) | payer OTHER ==
[2020-10-16 15:20] LABS: BASO % 0.7 % (0-2.0); EOS % 8.6 % (0-4.5); HEMATOCRIT 24.6 % (32.4-45.2); HEMOGLOBIN 8.3 GM/dL (10.7-15.3); LYMPH % 17.2 % (8-40); MCH 31.8 pg (25.7-33.7); MCHC 33.6 g/dl (32.0-36.0); MEAN CELL VOLUME 94.8 fl (80-96); MEAN PLT VOLUME 8.8 fl (7.5-11.1); MONO % 5.5 % (3.8-10.2); PLATELET COUNT 144 10^3/uL (134-434); RBC 2.59 M/mm3 (3.60-5.2); RDW 13.8 % (11.6-15.6); WHITE BLOOD COUNT 8.7 K/mm3 (4.0-10.0)
[2020-10-16 15:23] LABS: EPI CELLS 6 /uL (0-25.1); HYALINE CASTS 0 /uL (0-3.1); URINE APPEARANCE CLOUDY; URINE BACTERIA >9,000 /uL (0-1359); URINE BILIRUBIN NEGATIVE (NEGATIVE); URINE COLOR YELLOW; URINE GLUCOSE (UA) NEGATIVE (NEGATIVE); URINE KETONE NEGATIVE (NEGATIVE); URINE LEUK ESTERASE 2+ (NEGATIVE); URINE NITRITE NEGATIVE (NEGATIVE); URINE PROTEIN 1+ (NEGATIVE); URINE RBC 16 /uL (0-23.9); URINE UROBILINOGEN 0.2 mg/dL (0.2-1.0); URINE WBC 465 /uL (0-25.8)
[2020-10-16 15:43] LABS: BLOOD UREA NITROGEN 64.8 mg/dL (7-18); CALCIUM 8.6 mg/dL (8.5-10.1)
[2020-10-16 15:48] LABS: BILIRUBIN,TOTAL 0.2 mg/dL (0.2-1); TOT PROT 7.6 g/dl (6.4-8.2)
[2020-10-16] MEDS ORDERED: SODIUM CHLORIDE 1,000 ML IV STA (15:50)
[2020-10-16 15:51] LABS: ALBUMIN 3.5 g/dl (3.4-5.0); CREATININE 4.2 mg/dL (0.55-1.3)
[2020-10-16] MEDS ORDERED: CEFTRIAXONE 1,000 MG in DEXTROSE 5%-WATER - 50 ML IVPB ONE (16:03)
[2020-10-16] MEDS ORDERED: clonazePAM 0.5 MG TABLET PO ONE (16:05)
[2020-10-16] MEDS ORDERED: QUEtiapine FUMARATE 200 MG TABLET PO ONE (16:05)
[2020-10-16] MEDS ORDERED: QUEtiapine FUMARATE 100 MG TABLET (FP) ONE (16:43)
[2020-10-16] MEDS ORDERED: clonazePAM 0.5 MG TABLET ONE (16:43)
[2020-10-16] MEDS ORDERED: CEFTRIAXONE 1 GM/50 ML BAG ONE (17:28)
[2020-10-16] MEDS: SODIUM CHLORIDE 0.45% 1,000 ML IV SCH (17:32)
[2020-10-16 20:55] VITALS: BMI 26.1
[2020-10-16] MEDS: INSULIN (LEVEMIR) 100 UNITS/ML UNITS SQ SCH (23:10)
[2020-10-16] MEDS: QUEtiapine FUMARATE 200 MG TABLET PO SCH (23:10)
[2020-10-16] MEDS: INSULIN (NOVOLOG) ASPART 100 UNITS/ML 10ML VIAL SQ SCH (23:10)
[2020-10-16] MEDS: ATORVASTATIN CA 10 MG TABLET (FP) PO SCH (23:10)
[2020-10-16] MEDS: HEPARIN NA (PORCINE) 5,000 UNITS/ML 1ML VIAL SQ SCH (23:12)
[2020-10-16] MEDS: BUDESONIDE/FORMETEROL FUMARATE 160/4.5 mcg INHALER IH SCH (23:13)
[2020-10-16] MEDS ORDERED: MELATONIN 5 MG TABLETS PO ONE (23:17)
[2020-10-16] MEDS: ACETAMINOPHEN 500 MG TABLET (FP) PO PRN (23:23)
[2020-10-17] MEDS: QUEtiapine FUMARATE 200 MG TABLET PO SCH ×3 (05:41→22:07)
[2020-10-17] MEDS: INSULIN (LEVEMIR) 100 UNITS/ML UNITS SQ SCH ×2 (06:03→22:10)
[2020-10-17] MEDS: INSULIN (NOVOLOG) ASPART 100 UNITS/ML 10ML VIAL SQ SCH ×4 (06:03→22:09)
[2020-10-17] MEDS: ALBUTEROL SO4 2.5/IPRATROPIUM 0.5 INH SOL 3 ML VIAL.NEB. NEB SCH ×4 (07:56→20:10)
[2020-10-17 08:40] LABS: BASO % 0.6 % (0-2.0); EOS % 9.6 % (0-4.5); HEMATOCRIT 23.7 % (32.4-45.2); LYMPH % 23.9 % (8-40); MCH 32.4 pg (25.7-33.7); MCHC 33.6 g/dl (32.0-36.0); MEAN CELL VOLUME 96.4 fl (80-96); MEAN PLT VOLUME 8.9 fl (7.5-11.1); MONO % 6.4 % (3.8-10.2); NEUT % 59.5 % (42.8-82.8); PLATELET COUNT 130 10^3/uL (134-434); RBC 2.46 M/mm3 (3.60-5.2); RDW 13.3 % (11.6-15.6); WHITE BLOOD COUNT 5.9 K/mm3 (4.0-10.0)
[2020-10-17 08:44] LABS: INR 1.07 (0.83-1.09); PROTHROMBIN TIME (PATIENT) 12.9 SEC (9.7-13.0)
[2020-10-17 08:58] LABS: CALCIUM 8.5 mg/dL (8.5-10.1)
[2020-10-17 08:59] LABS: ALBUMIN 3.1 g/dl (3.4-5.0); BLOOD UREA NITROGEN 59.3 mg/dL (7-18); MAGNESIUM 2.1 mg/dL (1.8-2.4)
[2020-10-17 09:02] LABS: CREATININE 4.1 mg/dL (0.55-1.3); PHOSPHOROUS 6.8 mg/dL (2.5-4.9)
[2020-10-17 09:03] LABS: BILIRUBIN,TOTAL 0.4 mg/dL (0.2-1); TOT PROT 7.2 g/dl (6.4-8.2)
[2020-10-17] MEDS ORDERED: VENLAFAXINE HCL 150 MG E.R. CAPSULE PO SCH (10:00)
[2020-10-17] MEDS: HEPARIN NA (PORCINE) 5,000 UNITS/ML 1ML VIAL SQ SCH ×2 (10:27→22:07)
[2020-10-17] MEDS: NICOTINE 14 MG/24 HOURS TOPICAL PATCH TD SCH ×2 (10:27→10:33)
[2020-10-17] MEDS: PANTOPRAZOLE 40 MG TABLET PO SCH (10:27)
[2020-10-17] MEDS: BUDESONIDE/FORMETEROL FUMARATE 160/4.5 mcg INHALER IH SCH ×2 (10:30→22:11)
[2020-10-17] MEDS ORDERED: IRON SUCROSE INJECTION 200 MG in SODIUM CHLORIDE 90 ML IVPB ONE (11:00)
[2020-10-17] MEDS: POLYETHYLENE GLYCOL (HEALTHYLAX) 3350 17 GM PACKET PO SCH ×2 (13:53→22:07)
[2020-10-17] MEDS: SODIUM ZIRCONIUM CYCLOSILICATE (LOKELMA) 5 GM PACKET PO SCH (13:54)
[2020-10-17 14:58] LABS: EPI CELLS >36 /uL (0-25.1); HYALINE CASTS 7 /uL (0-3.1); URINE APPEARANCE TURBID; URINE BACTERIA 18 /uL (0-1359); URINE BILIRUBIN NEGATIVE (NEGATIVE); URINE COLOR YELLOW; URINE GLUCOSE (UA) NEGATIVE (NEGATIVE); URINE KETONE NEGATIVE (NEGATIVE); URINE LEUK ESTERASE 3+ (NEGATIVE); URINE NITRITE NEGATIVE (NEGATIVE); URINE PROTEIN 2+ (NEGATIVE); URINE RBC 129 /uL (0-23.9); URINE UROBILINOGEN 0.2 mg/dL (0.2-1.0); URINE WBC 9270 /uL (0-25.8)
[2020-10-17] MEDS ORDERED: DEXTROSE 5%-WATER - 50 ML IVPB ONE (17:23)
[2020-10-17] MEDS ORDERED: cefTRIAXone SODIUM 1 GM VIAL ONE (17:23)
[2020-10-17] MEDS: CEFTRIAXONE 1 GM in DEXTROSE 5%-WATER - 50 ML IVPB SCH (17:31)
[2020-10-17] MEDS: clonazePAM 0.5 MG TABLET PO PRN (17:31)
[2020-10-17] MEDS: SODIUM CHLORIDE 0.45% 1,000 ML IV SCH ×2 (17:36→22:07)
[2020-10-17] MEDS: ACETAMINOPHEN 500 MG TABLET (FP) PO PRN (18:07)
[2020-10-17] MEDS: MELATONIN 5 MG TABLETS PO PRN (22:07)
[2020-10-17] MEDS: ATORVASTATIN CA 10 MG TABLET (FP) PO SCH (22:07)
[2020-10-17] MEDS ORDERED: KETOROLAC TROMETHAMINE 30 MG/1 ML VIAL IVPUSH PRN (23:25)
[2020-10-18] MEDS: POLYETHYLENE GLYCOL (HEALTHYLAX) 3350 17 GM PACKET PO SCH ×3 (06:02→21:15)
[2020-10-18] MEDS: clonazePAM 0.5 MG TABLET PO PRN ×3 (06:02→21:12)
[2020-10-18] MEDS: QUEtiapine FUMARATE 200 MG TABLET PO SCH ×3 (06:02→21:13)
[2020-10-18] MEDS: INSULIN (NOVOLOG) ASPART 100 UNITS/ML 10ML VIAL SQ SCH ×4 (06:04→21:30)
[2020-10-18] MEDS: INSULIN (LEVEMIR) 100 UNITS/ML UNITS SQ SCH ×2 (06:14→23:49)
[2020-10-18] MEDS: ALBUTEROL SO4 2.5/IPRATROPIUM 0.5 INH SOL 3 ML VIAL.NEB. NEB SCH ×4 (07:55→19:19)
[2020-10-18 10:00] LABS: BASO % 0.7 % (0-2.0); EOS % 7.3 % (0-4.5); HEMATOCRIT 21.1 % (32.4-45.2); HEMOGLOBIN 7.2 GM/dL (10.7-15.3); MCH 32.2 pg (25.7-33.7); MCHC 33.9 g/dl (32.0-36.0); MEAN CELL VOLUME 94.9 fl (80-96); MEAN PLT VOLUME 8.5 fl (7.5-11.1); MONO % 7.9 % (3.8-10.2); NEUT % 64.1 % (42.8-82.8); PLATELET COUNT 112 10^3/uL (134-434); RBC 2.22 M/mm3 (3.60-5.2); RDW 13.4 % (11.6-15.6); WHITE BLOOD COUNT 6.3 K/mm3 (4.0-10.0)
[2020-10-18 10:17] LABS: ALBUMIN 2.8 g/dl (3.4-5.0); BLOOD UREA NITROGEN 61.1 mg/dL (7-18); CALCIUM 7.8 mg/dL (8.5-10.1)
[2020-10-18 10:20] LABS: CREATININE 4.2 mg/dL (0.55-1.3)
[2020-10-18 10:22] LABS: BILIRUBIN,TOTAL 0.2 mg/dL (0.2-1); TOT PROT 6.3 g/dl (6.4-8.2)
[2020-10-18] MEDS ORDERED: cefTRIAXone SODIUM 1 GM VIAL ONE (10:38)
[2020-10-18] MEDS ORDERED: DEXTROSE 5%-WATER - 50 ML IVPB ONE (10:38)
[2020-10-18] MEDS: CEFTRIAXONE 1 GM in DEXTROSE 5%-WATER - 50 ML IVPB SCH (10:40)
[2020-10-18] MEDS: NICOTINE 14 MG/24 HOURS TOPICAL PATCH TD SCH ×2 (10:40→10:46)
[2020-10-18] MEDS: VENLAFAXINE HCL 75 MG E.R. CAPSULES PO SCH (10:41)
[2020-10-18] MEDS: PANTOPRAZOLE 40 MG TABLET PO SCH (10:41)
[2020-10-18] MEDS: BUDESONIDE/FORMETEROL FUMARATE 160/4.5 mcg INHALER IH SCH ×2 (10:42→21:17)
[2020-10-18] MEDS: SODIUM ZIRCONIUM CYCLOSILICATE (LOKELMA) 5 GM PACKET PO SCH (10:42)
[2020-10-18] MEDS: HEPARIN NA (PORCINE) 5,000 UNITS/ML 1ML VIAL SQ SCH ×3 (10:42→21:13)
[2020-10-18] MEDS: SODIUM CHLORIDE 0.45% 1,000 ML IV SCH ×2 (12:38→17:33)
[2020-10-18] MEDS: ACETAMINOPHEN 500 MG TABLET (FP) PO PRN (21:11)
[2020-10-18] MEDS: ATORVASTATIN CA 10 MG TABLET (FP) PO SCH (21:13)
[2020-10-18] MEDS: MELATONIN 5 MG TABLETS PO PRN (21:13)
[2020-10-19] MEDS: SODIUM CHLORIDE 0.45% 1,000 ML IV SCH ×2 (04:17→16:37)
[2020-10-19] MEDS: QUEtiapine FUMARATE 200 MG TABLET PO SCH ×3 (06:07→21:00)
[2020-10-19] MEDS: POLYETHYLENE GLYCOL (HEALTHYLAX) 3350 17 GM PACKET PO SCH ×3 (06:13→21:00)
[2020-10-19] MEDS: INSULIN (NOVOLOG) ASPART 100 UNITS/ML 10ML VIAL SQ SCH ×4 (06:14→21:00)
[2020-10-19] MEDS: INSULIN (LEVEMIR) 100 UNITS/ML UNITS SQ SCH ×2 (06:14→21:00)
[2020-10-19] MEDS: ACETAMINOPHEN 500 MG TABLET (FP) PO PRN (07:00)
[2020-10-19] MEDS: ALBUTEROL SO4 2.5/IPRATROPIUM 0.5 INH SOL 3 ML VIAL.NEB. NEB SCH ×4 (07:45→19:41)
[2020-10-19 08:01] LABS: BASO % 0.8 % (0-2.0); EOS % 7.2 % (0-4.5); HEMATOCRIT 21.5 % (32.4-45.2); HEMOGLOBIN 7.2 GM/dL (10.7-15.3); LYMPH % 24.1 % (8-40); MCH 32.3 pg (25.7-33.7); MCHC 33.5 g/dl (32.0-36.0); MEAN CELL VOLUME 96.7 fl (80-96); MEAN PLT VOLUME 8.7 fl (7.5-11.1); MONO % 8.1 % (3.8-10.2); NEUT % 59.8 % (42.8-82.8); PLATELET COUNT 111 10^3/uL (134-434); RBC 2.22 M/mm3 (3.60-5.2); RDW 13.7 % (11.6-15.6); WHITE BLOOD COUNT 5.5 K/mm3 (4.0-10.0)
[2020-10-19 08:25] LABS: BLOOD UREA NITROGEN 61.7 mg/dL (7-18); CALCIUM 7.7 mg/dL (8.5-10.1)
[2020-10-19] MEDS ORDERED: cefTRIAXone SODIUM 1 GM VIAL ONE (09:35)
[2020-10-19] MEDS ORDERED: DEXTROSE 5%-WATER - 50 ML IVPB ONE (09:36)
[2020-10-19] MEDS: VENLAFAXINE HCL 75 MG E.R. CAPSULES PO SCH (09:40)
[2020-10-19] MEDS: CEFTRIAXONE 1 GM in DEXTROSE 5%-WATER - 50 ML IVPB SCH (09:41)
[2020-10-19] MEDS: BUDESONIDE/FORMETEROL FUMARATE 160/4.5 mcg INHALER IH SCH ×2 (09:41→21:09)
[2020-10-19] MEDS: SODIUM ZIRCONIUM CYCLOSILICATE (LOKELMA) 5 GM PACKET PO SCH ×2 (09:41→11:29)
[2020-10-19] MEDS: NICOTINE 14 MG/24 HOURS TOPICAL PATCH TD SCH (09:41)
[2020-10-19] MEDS: HEPARIN NA (PORCINE) 5,000 UNITS/ML 1ML VIAL SQ SCH ×2 (09:41→21:00)
[2020-10-19] MEDS: PANTOPRAZOLE 40 MG TABLET PO SCH (09:41)
[2020-10-19] MEDS: clonazePAM 0.5 MG TABLET PO PRN ×2 (10:06→18:17)
[2020-10-19] MEDS ORDERED: PT OWN MED DRAWER 7, Y5N ONE (14:41)
[2020-10-19] MEDS ORDERED: METOPROLOL TARTRATE 25 MG TABLET (FP) PO ONE (15:37)
[2020-10-19] MEDS: traMADol HCL 50 MG TABLET PO PRN ×2 (16:01→22:12)
[2020-10-19] MEDS: MELATONIN 5 MG TABLETS PO PRN (20:52)
[2020-10-19] MEDS: ATORVASTATIN CA 10 MG TABLET (FP) PO SCH (21:00)
[2020-10-19] MEDS: METOPROLOL TARTRATE 25 MG TABLET (FP) PO SCH (21:00)
[2020-10-20] MEDS: QUEtiapine FUMARATE 200 MG TABLET PO SCH ×3 (05:45→21:36)
[2020-10-20] MEDS: INSULIN (NOVOLOG) ASPART 100 UNITS/ML 10ML VIAL SQ SCH ×4 (06:21→21:46)
[2020-10-20] MEDS: INSULIN (LEVEMIR) 100 UNITS/ML UNITS SQ SCH ×2 (06:22→21:47)
[2020-10-20] MEDS: POLYETHYLENE GLYCOL (HEALTHYLAX) 3350 17 GM PACKET PO SCH ×3 (06:34→21:35)
[2020-10-20 07:27] LABS: BASO % 0.6 % (0-2.0); EOS % 9.1 % (0-4.5); HEMATOCRIT 21.1 % (32.4-45.2); LYMPH % 28.5 % (8-40); MCH 32.1 pg (25.7-33.7); MEAN PLT VOLUME 8.8 fl (7.5-11.1); MONO % 7.9 % (3.8-10.2); NEUT % 53.9 % (42.8-82.8); PLATELET COUNT 111 10^3/uL (134-434); RBC 2.18 M/mm3 (3.60-5.2); RDW 13.9 % (11.6-15.6); WHITE BLOOD COUNT 7.3 K/mm3 (4.0-10.0)
[2020-10-20] MEDS: ALBUTEROL SO4 2.5/IPRATROPIUM 0.5 INH SOL 3 ML VIAL.NEB. NEB SCH ×4 (07:36→19:55)
[2020-10-20 07:51] LABS: CALCIUM 7.8 mg/dL (8.5-10.1)
[2020-10-20 07:52] LABS: BLOOD UREA NITROGEN 66.6 mg/dL (7-18); MAGNESIUM 1.9 mg/dL (1.8-2.4)
[2020-10-20 07:55] LABS: CREATININE 4.2 mg/dL (0.55-1.3); IRON SERUM 87 ug/dL (50-175); TOTAL IRON BINDING CAPACITY 228 ug/dL (250-450)
[2020-10-20] MEDS ORDERED: PT OWN MED DRAWER 7, Y5N ONE ×3 (09:39→14:45)
[2020-10-20] MEDS ORDERED: DEXTROSE 5%-WATER - 50 ML IVPB ONE (09:40)
[2020-10-20] MEDS ORDERED: cefTRIAXone SODIUM 1 GM VIAL ONE (09:40)
[2020-10-20] MEDS: SODIUM ZIRCONIUM CYCLOSILICATE (LOKELMA) 5 GM PACKET PO SCH ×3 (09:44→21:36)
[2020-10-20] MEDS: VENLAFAXINE HCL 75 MG E.R. CAPSULES PO SCH (09:44)
[2020-10-20] MEDS: METOPROLOL TARTRATE 25 MG TABLET (FP) PO SCH ×2 (09:45→21:36)
[2020-10-20] MEDS: CEFTRIAXONE 1 GM in DEXTROSE 5%-WATER - 50 ML IVPB SCH (09:45)
[2020-10-20] MEDS: BUDESONIDE/FORMETEROL FUMARATE 160/4.5 mcg INHALER IH SCH ×2 (09:46→21:46)
[2020-10-20] MEDS: HEPARIN NA (PORCINE) 5,000 UNITS/ML 1ML VIAL SQ SCH ×2 (09:47→21:36)
[2020-10-20] MEDS: NICOTINE 14 MG/24 HOURS TOPICAL PATCH TD SCH ×2 (09:48→09:59)
[2020-10-20] MEDS: PANTOPRAZOLE 40 MG TABLET PO SCH (09:59)
[2020-10-20] MEDS: traMADol HCL 50 MG TABLET PO PRN ×2 (10:09→16:31)
[2020-10-20] MEDS: clonazePAM 0.5 MG TABLET PO PRN ×2 (10:09→18:06)
[2020-10-20] MEDS: SODIUM CHLORIDE 0.45% 1,000 ML IV SCH (19:47)
[2020-10-20] MEDS: MELATONIN 5 MG TABLETS PO PRN (21:36)
[2020-10-20] MEDS: ATORVASTATIN CA 10 MG TABLET (FP) PO SCH (21:36)
[2020-10-21] MEDS: INSULIN (LEVEMIR) 100 UNITS/ML UNITS SQ SCH ×2 (06:24→22:08)
[2020-10-21] MEDS: INSULIN (NOVOLOG) ASPART 100 UNITS/ML 10ML VIAL SQ SCH ×4 (06:24→22:16)
[2020-10-21] MEDS: POLYETHYLENE GLYCOL (HEALTHYLAX) 3350 17 GM PACKET PO SCH ×3 (06:24→22:07)
[2020-10-21] MEDS: QUEtiapine FUMARATE 200 MG TABLET PO SCH ×3 (06:24→22:06)
[2020-10-21] MEDS: ALBUTEROL SO4 2.5/IPRATROPIUM 0.5 INH SOL 3 ML VIAL.NEB. NEB SCH ×4 (08:06→19:40)
[2020-10-21 08:24] LABS: BASO % 0.8 % (0-2.0); EOS % 8.8 % (0-4.5); HEMATOCRIT 28.6 % (32.4-45.2); HEMOGLOBIN 9.8 GM/dL (10.7-15.3); LYMPH % 24.2 % (8-40); MCH 31.1 pg (25.7-33.7); MCHC 34.4 g/dl (32.0-36.0); MEAN CELL VOLUME 90.5 fl (80-96); MEAN PLT VOLUME 8.7 fl (7.5-11.1); MONO % 7.8 % (3.8-10.2); NEUT % 58.4 % (42.8-82.8); PLATELET COUNT 107 10^3/uL (134-434); RBC 3.16 M/mm3 (3.60-5.2); RDW 17.7 % (11.6-15.6); WHITE BLOOD COUNT 8.1 K/mm3 (4.0-10.0)
[2020-10-21 08:50] LABS: CREATININE 4.1 mg/dL (0.55-1.3)
[2020-10-21] MEDS ORDERED: cefTRIAXone SODIUM 1 GM VIAL ONE (10:09)
[2020-10-21] MEDS ORDERED: DEXTROSE 5%-WATER - 50 ML IVPB ONE (10:09)
[2020-10-21] MEDS: traMADol HCL 50 MG TABLET PO PRN ×2 (10:14→19:37)
[2020-10-21] MEDS: METOPROLOL TARTRATE 25 MG TABLET (FP) PO SCH ×2 (10:15→22:06)
[2020-10-21] MEDS: HEPARIN NA (PORCINE) 5,000 UNITS/ML 1ML VIAL SQ SCH ×2 (10:15→22:05)
[2020-10-21] MEDS: PANTOPRAZOLE 40 MG TABLET PO SCH (10:15)
[2020-10-21] MEDS: BUDESONIDE/FORMETEROL FUMARATE 160/4.5 mcg INHALER IH SCH ×2 (10:16→22:16)
[2020-10-21] MEDS: NICOTINE 14 MG/24 HOURS TOPICAL PATCH TD SCH ×2 (10:16→10:30)
[2020-10-21] MEDS: SODIUM ZIRCONIUM CYCLOSILICATE (LOKELMA) 5 GM PACKET PO SCH ×2 (10:16→22:07)
[2020-10-21] MEDS: CEFTRIAXONE 1 GM in DEXTROSE 5%-WATER - 50 ML IVPB SCH (10:16)
[2020-10-21] MEDS: VENLAFAXINE HCL 75 MG E.R. CAPSULES PO SCH (10:26)
[2020-10-21] MEDS: clonazePAM 0.5 MG TABLET PO PRN (13:17)
[2020-10-21] MEDS ORDERED: QUEtiapine FUMARATE 200 MG TABLET PO SCH (14:45)
[2020-10-21] MEDS: SODIUM CHLORIDE 0.45% 1,000 ML IV SCH (17:22)
[2020-10-21] MEDS: MELATONIN 5 MG TABLETS PO PRN (22:06)
[2020-10-21] MEDS: ATORVASTATIN CA 10 MG TABLET (FP) PO SCH (22:06)
[2020-10-22] MEDS: POLYETHYLENE GLYCOL (HEALTHYLAX) 3350 17 GM PACKET PO SCH (06:11)
[2020-10-22] MEDS: INSULIN (LEVEMIR) 100 UNITS/ML UNITS SQ SCH ×2 (06:12→21:06)
[2020-10-22] MEDS: INSULIN (NOVOLOG) ASPART 100 UNITS/ML 10ML VIAL SQ SCH ×4 (06:12→21:07)
[2020-10-22 08:49] LABS: HEMATOCRIT 31.4 % (32.4-45.2); HEMOGLOBIN 10.6 GM/dL (10.7-15.3); MCH 30.5 pg (25.7-33.7); MCHC 33.9 g/dl (32.0-36.0); MEAN PLT VOLUME 8.6 fl (7.5-11.1); PLATELET COUNT 113 10^3/uL (134-434); RBC 3.49 M/mm3 (3.60-5.2); RDW 17.5 % (11.6-15.6); WHITE BLOOD COUNT 8.1 K/mm3 (4.0-10.0)
[2020-10-22] MEDS: ALBUTEROL SO4 2.5/IPRATROPIUM 0.5 INH SOL 3 ML VIAL.NEB. NEB SCH ×2 (08:50→20:26)
[2020-10-22 09:15] LABS: BLOOD UREA NITROGEN 65.3 mg/dL (7-18); CALCIUM 8.1 mg/dL (8.5-10.1)
[2020-10-22 09:19] LABS: CREATININE 3.9 mg/dL (0.55-1.3)
[2020-10-22 09:20] LABS: BILIRUBIN,TOTAL 0.2 mg/dL (0.2-1); TOT PROT 6.7 g/dl (6.4-8.2)
[2020-10-22] MEDS ORDERED: cefTRIAXone SODIUM 1 GM VIAL ONE (09:55)
[2020-10-22] MEDS ORDERED: DEXTROSE 5%-WATER - 50 ML IVPB ONE (09:55)
[2020-10-22] MEDS: VENLAFAXINE HCL 75 MG E.R. CAPSULES PO SCH (10:02)
[2020-10-22] MEDS: SODIUM ZIRCONIUM CYCLOSILICATE (LOKELMA) 5 GM PACKET PO SCH ×2 (10:02→21:05)
[2020-10-22] MEDS: CEFTRIAXONE 1 GM in DEXTROSE 5%-WATER - 50 ML IVPB SCH (10:03)
[2020-10-22] MEDS: QUEtiapine FUMARATE 200 MG TABLET PO SCH ×2 (10:03→21:06)
[2020-10-22] MEDS: METOPROLOL TARTRATE 25 MG TABLET (FP) PO SCH ×2 (10:03→21:06)
[2020-10-22] MEDS: PANTOPRAZOLE 40 MG TABLET PO SCH (10:03)
[2020-10-22] MEDS: BUDESONIDE/FORMETEROL FUMARATE 160/4.5 mcg INHALER IH SCH ×2 (10:04→21:07)
[2020-10-22] MEDS: HEPARIN NA (PORCINE) 5,000 UNITS/ML 1ML VIAL SQ SCH ×2 (10:05→21:05)
[2020-10-22] MEDS: NICOTINE 14 MG/24 HOURS TOPICAL PATCH TD SCH ×2 (10:06→15:39)
[2020-10-22] MEDS: traMADol HCL 50 MG TABLET PO PRN ×2 (10:06→17:34)
[2020-10-22] MEDS: clonazePAM 0.5 MG TABLET PO PRN (15:39)
[2020-10-22] MEDS: SODIUM CHLORIDE 0.45% 1,000 ML IV SCH (17:37)
[2020-10-22] MEDS: MELATONIN 5 MG TABLETS PO PRN (21:06)
[2020-10-22] MEDS: ATORVASTATIN CA 10 MG TABLET (FP) PO SCH (21:06)
[2020-10-23] MEDS: traMADol HCL 50 MG TABLET PO PRN ×3 (00:17→16:55)
[2020-10-23] MEDS: clonazePAM 0.5 MG TABLET PO PRN ×3 (00:18→18:09)
[2020-10-23] MEDS: ALBUTEROL SO4 2.5/IPRATROPIUM 0.5 INH SOL 3 ML VIAL.NEB. NEB SCH ×6 (01:28→19:55)
[2020-10-23] MEDS: SODIUM CHLORIDE 0.45% 1,000 ML IV SCH ×3 (05:45→15:36)
[2020-10-23] MEDS: INSULIN (NOVOLOG) ASPART 100 UNITS/ML 10ML VIAL SQ SCH ×4 (06:06→21:04)
[2020-10-23] MEDS: INSULIN (LEVEMIR) 100 UNITS/ML UNITS SQ SCH ×2 (06:06→21:03)
[2020-10-23] MEDS ORDERED: PT OWN MED DRAWER 7, Y5N ONE (09:04)
[2020-10-23] MEDS: SODIUM ZIRCONIUM CYCLOSILICATE (LOKELMA) 5 GM PACKET PO SCH ×2 (09:09→21:03)
[2020-10-23] MEDS: VENLAFAXINE HCL 75 MG E.R. CAPSULES PO SCH (09:09)
[2020-10-23] MEDS: QUEtiapine FUMARATE 200 MG TABLET PO SCH ×2 (09:10→21:03)
[2020-10-23] MEDS: METOPROLOL TARTRATE 25 MG TABLET (FP) PO SCH ×2 (09:10→21:03)
[2020-10-23] MEDS: PANTOPRAZOLE 40 MG TABLET PO SCH (09:10)
[2020-10-23] MEDS: NICOTINE 14 MG/24 HOURS TOPICAL PATCH TD SCH (09:11)
[2020-10-23] MEDS: BUDESONIDE/FORMETEROL FUMARATE 160/4.5 mcg INHALER IH SCH ×2 (09:11→21:04)
[2020-10-23] MEDS: HEPARIN NA (PORCINE) 5,000 UNITS/ML 1ML VIAL SQ SCH ×2 (09:11→21:03)
[2020-10-23 10:36] LABS: CALCIUM 8.1 mg/dL (8.5-10.1)
[2020-10-23 10:37] LABS: BLOOD UREA NITROGEN 60.9 mg/dL (7-18)
[2020-10-23 10:40] LABS: CREATININE 3.7 mg/dL (0.55-1.3)
[2020-10-23] MEDS: ATORVASTATIN CA 10 MG TABLET (FP) PO SCH (21:03)
[2020-10-23] MEDS: MELATONIN 5 MG TABLETS PO PRN (21:03)
[2020-10-24] MEDS: SODIUM CHLORIDE 0.45% 1,000 ML IV SCH ×3 (01:40→20:53)
[2020-10-24] MEDS: INSULIN (LEVEMIR) 100 UNITS/ML UNITS SQ SCH ×2 (06:19→21:10)
[2020-10-24] MEDS: traMADol HCL 50 MG TABLET PO PRN ×3 (06:19→18:53)
[2020-10-24] MEDS: INSULIN (NOVOLOG) ASPART 100 UNITS/ML 10ML VIAL SQ SCH ×4 (06:20→21:11)
[2020-10-24] MEDS: ALBUTEROL SO4 2.5/IPRATROPIUM 0.5 INH SOL 3 ML VIAL.NEB. NEB SCH ×4 (07:55→20:09)
[2020-10-24 08:16] LABS: BASO % 0.6 % (0-2.0); HEMATOCRIT 28.3 % (32.4-45.2); HEMOGLOBIN 9.6 GM/dL (10.7-15.3); LYMPH % 23.8 % (8-40); MCH 30.8 pg (25.7-33.7); MCHC 33.9 g/dl (32.0-36.0); MEAN CELL VOLUME 90.9 fl (80-96); MEAN PLT VOLUME 8.7 fl (7.5-11.1); MONO % 8.3 % (3.8-10.2); NEUT % 58.3 % (42.8-82.8); PLATELET COUNT 103 10^3/uL (134-434); RBC 3.11 M/mm3 (3.60-5.2); RDW 16.5 % (11.6-15.6)
[2020-10-24 08:44] LABS: CALCIUM 7.8 mg/dL (8.5-10.1)
[2020-10-24 08:45] LABS: ALBUMIN 2.7 g/dl (3.4-5.0); BLOOD UREA NITROGEN 65.8 mg/dL (7-18); MAGNESIUM 1.6 mg/dL (1.8-2.4)
[2020-10-24 08:48] LABS: CREATININE 3.8 mg/dL (0.55-1.3)
[2020-10-24 08:49] LABS: BILIRUBIN,TOTAL 0.7 mg/dL (0.2-1); TOT PROT 6.3 g/dl (6.4-8.2)
[2020-10-24] MEDS: SODIUM ZIRCONIUM CYCLOSILICATE (LOKELMA) 5 GM PACKET PO SCH ×2 (09:37→21:11)
[2020-10-24] MEDS: PANTOPRAZOLE 40 MG TABLET PO SCH (09:37)
[2020-10-24] MEDS: clonazePAM 0.5 MG TABLET PO PRN ×2 (09:37→17:41)
[2020-10-24] MEDS: QUEtiapine FUMARATE 200 MG TABLET PO SCH ×2 (09:37→21:10)
[2020-10-24] MEDS: METOPROLOL TARTRATE 25 MG TABLET (FP) PO SCH ×2 (09:37→21:09)
[2020-10-24] MEDS: BUDESONIDE/FORMETEROL FUMARATE 160/4.5 mcg INHALER IH SCH ×2 (09:38→21:12)
[2020-10-24] MEDS: VENLAFAXINE HCL 75 MG E.R. CAPSULES PO SCH (09:38)
[2020-10-24] MEDS: HEPARIN NA (PORCINE) 5,000 UNITS/ML 1ML VIAL SQ SCH ×2 (09:38→21:10)
[2020-10-24] MEDS: NICOTINE 14 MG/24 HOURS TOPICAL PATCH TD SCH (09:38)
[2020-10-24 12:09] LABS: ANTIGLOMERULAR BASEMENT MEN.AB 3 units (0-20)
[2020-10-24] MEDS ORDERED: MAGNESIUM OXIDE 400 MG TABLET (FP) PO ONE (14:55)
[2020-10-24] MEDS: MELATONIN 5 MG TABLETS PO PRN (21:09)
[2020-10-24] MEDS: ATORVASTATIN CA 10 MG TABLET (FP) PO SCH (21:09)
[2020-10-25] MEDS: INSULIN (LEVEMIR) 100 UNITS/ML UNITS SQ SCH ×2 (06:03→21:08)
[2020-10-25] MEDS: INSULIN (NOVOLOG) ASPART 100 UNITS/ML 10ML VIAL SQ SCH ×4 (06:04→21:05)
[2020-10-25] MEDS: SODIUM CHLORIDE 0.45% 1,000 ML IV SCH ×3 (06:11→16:29)
[2020-10-25] MEDS: ALBUTEROL SO4 2.5/IPRATROPIUM 0.5 INH SOL 3 ML VIAL.NEB. NEB SCH ×4 (08:16→19:57)
[2020-10-25] MEDS: VENLAFAXINE HCL 75 MG E.R. CAPSULES PO SCH (09:16)
[2020-10-25] MEDS: SODIUM ZIRCONIUM CYCLOSILICATE (LOKELMA) 5 GM PACKET PO SCH ×2 (09:17→21:04)
[2020-10-25] MEDS: QUEtiapine FUMARATE 200 MG TABLET PO SCH ×2 (09:18→21:04)
[2020-10-25] MEDS: PANTOPRAZOLE 40 MG TABLET PO SCH (09:18)
[2020-10-25] MEDS: METOPROLOL TARTRATE 25 MG TABLET (FP) PO SCH ×2 (09:18→21:04)
[2020-10-25] MEDS: BUDESONIDE/FORMETEROL FUMARATE 160/4.5 mcg INHALER IH SCH ×2 (09:18→21:09)
[2020-10-25] MEDS: HEPARIN NA (PORCINE) 5,000 UNITS/ML 1ML VIAL SQ SCH ×2 (09:19→21:04)
[2020-10-25] MEDS: NICOTINE 14 MG/24 HOURS TOPICAL PATCH TD SCH (09:20)
[2020-10-25] MEDS: clonazePAM 0.5 MG TABLET PO PRN ×2 (09:28→17:47)
[2020-10-25 09:53] LABS: BASO % 0.7 % (0-2.0); EOS % 7.9 % (0-4.5); HEMATOCRIT 31.8 % (32.4-45.2); HEMOGLOBIN 10.6 GM/dL (10.7-15.3); LYMPH % 17.7 % (8-40); MCH 30.4 pg (25.7-33.7); MCHC 33.4 g/dl (32.0-36.0); MEAN CELL VOLUME 90.8 fl (80-96); MEAN PLT VOLUME 8.4 fl (7.5-11.1); MONO % 7.1 % (3.8-10.2); NEUT % 66.6 % (42.8-82.8); PLATELET COUNT 123 10^3/uL (134-434); RDW 16.5 % (11.6-15.6)
[2020-10-25 10:18] LABS: ALBUMIN 3.2 g/dl (3.4-5.0); BLOOD UREA NITROGEN 67.8 mg/dL (7-18); CALCIUM 8.4 mg/dL (8.5-10.1); MAGNESIUM 1.6 mg/dL (1.8-2.4)
[2020-10-25 10:22] LABS: CREATININE 3.5 mg/dL (0.55-1.3)
[2020-10-25 10:23] LABS: BILIRUBIN,TOTAL 0.4 mg/dL (0.2-1); TOT PROT 7.4 g/dl (6.4-8.2)
[2020-10-25] MEDS: traMADol HCL 50 MG TABLET PO PRN ×2 (11:45→17:45)
[2020-10-25 17:11] LABS: ATYPICAL pANCA <1:20 titer (Neg:<1:20); C-ANCA <1:20 titer (Neg:<1:20)
[2020-10-25] MEDS: ATORVASTATIN CA 10 MG TABLET (FP) PO SCH (21:04)
[2020-10-25] MEDS: MELATONIN 5 MG TABLETS PO PRN (21:04)
[2020-10-26] MEDS: SODIUM CHLORIDE 0.45% 1,000 ML IV SCH ×2 (01:36→11:41)
[2020-10-26] MEDS: INSULIN (LEVEMIR) 100 UNITS/ML UNITS SQ SCH ×2 (06:31→21:02)
[2020-10-26] MEDS: INSULIN (NOVOLOG) ASPART 100 UNITS/ML 10ML VIAL SQ SCH ×4 (06:31→21:02)
[2020-10-26] MEDS: ALBUTEROL SO4 2.5/IPRATROPIUM 0.5 INH SOL 3 ML VIAL.NEB. NEB SCH ×4 (07:25→20:35)
[2020-10-26] MEDS ORDERED: PT OWN MED DRAWER 7, Y5N ONE (09:05)
[2020-10-26] MEDS: VENLAFAXINE HCL 75 MG E.R. CAPSULES PO SCH (09:13)
[2020-10-26] MEDS: SODIUM ZIRCONIUM CYCLOSILICATE (LOKELMA) 5 GM PACKET PO SCH ×2 (09:13→21:01)
[2020-10-26 09:15] LABS: HEMATOCRIT 31.3 % (32.4-45.2); HEMOGLOBIN 10.4 GM/dL (10.7-15.3); MCH 30.7 pg (25.7-33.7); MCHC 33.1 g/dl (32.0-36.0); MEAN PLT VOLUME 8.9 fl (7.5-11.1); PLATELET COUNT 119 10^3/uL (134-434); RBC 3.37 M/mm3 (3.60-5.2); RDW 16.5 % (11.6-15.6); WHITE BLOOD COUNT 10.7 K/mm3 (4.0-10.0)
[2020-10-26] MEDS: BUDESONIDE/FORMETEROL FUMARATE 160/4.5 mcg INHALER IH SCH ×2 (09:15→21:03)
[2020-10-26] MEDS: PANTOPRAZOLE 40 MG TABLET PO SCH (09:15)
[2020-10-26] MEDS: METOPROLOL TARTRATE 25 MG TABLET (FP) PO SCH ×2 (09:15→21:01)
[2020-10-26] MEDS: QUEtiapine FUMARATE 200 MG TABLET PO SCH ×2 (09:15→21:02)
[2020-10-26] MEDS: HEPARIN NA (PORCINE) 5,000 UNITS/ML 1ML VIAL SQ SCH ×2 (09:15→21:01)
[2020-10-26] MEDS: NICOTINE 14 MG/24 HOURS TOPICAL PATCH TD SCH (09:16)
[2020-10-26] MEDS: clonazePAM 0.5 MG TABLET PO PRN ×2 (09:37→21:01)
[2020-10-26] MEDS: traMADol HCL 50 MG TABLET PO PRN (09:37)
[2020-10-26 09:40] LABS: BLOOD UREA NITROGEN 67.6 mg/dL (7-18); CALCIUM 8.2 mg/dL (8.5-10.1); MAGNESIUM 1.6 mg/dL (1.8-2.4)
[2020-10-26 09:43] LABS: CREATININE 3.4 mg/dL (0.55-1.3)
[2020-10-26 09:44] LABS: BILIRUBIN,TOTAL 0.6 mg/dL (0.2-1); TOT PROT 7.1 g/dl (6.4-8.2)
[2020-10-26] MEDS: SODIUM CHLORIDE 1,000 ML IV SCH (12:12)
[2020-10-26] MEDS: MELATONIN 5 MG TABLETS PO PRN (21:01)
[2020-10-26] MEDS: ATORVASTATIN CA 10 MG TABLET (FP) PO SCH (21:02)
[2020-10-27] MEDS: SODIUM CHLORIDE 1,000 ML IV SCH (01:46)
[2020-10-27] MEDS: INSULIN (LEVEMIR) 100 UNITS/ML UNITS SQ SCH (06:25)
[2020-10-27] MEDS: INSULIN (NOVOLOG) ASPART 100 UNITS/ML 10ML VIAL SQ SCH ×3 (06:25→17:32)
[2020-10-27] MEDS: ALBUTEROL SO4 2.5/IPRATROPIUM 0.5 INH SOL 3 ML VIAL.NEB. NEB SCH ×3 (07:35→15:11)
[2020-10-27] MEDS: SODIUM ZIRCONIUM CYCLOSILICATE (LOKELMA) 5 GM PACKET PO SCH (10:47)
[2020-10-27] MEDS: NICOTINE 14 MG/24 HOURS TOPICAL PATCH TD SCH (10:47)
[2020-10-27] MEDS: HEPARIN NA (PORCINE) 5,000 UNITS/ML 1ML VIAL SQ SCH (10:47)
[2020-10-27] MEDS: PANTOPRAZOLE 40 MG TABLET PO SCH (10:47)
[2020-10-27] MEDS: QUEtiapine FUMARATE 200 MG TABLET PO SCH (10:47)
[2020-10-27] MEDS: METOPROLOL TARTRATE 25 MG TABLET (FP) PO SCH (10:47)
[2020-10-27] MEDS: VENLAFAXINE HCL 75 MG E.R. CAPSULES PO SCH (10:48)
[2020-10-27] MEDS: BUDESONIDE/FORMETEROL FUMARATE 160/4.5 mcg INHALER IH SCH (10:48)
[2020-10-27 10:54] LABS: CALCIUM 8.2 mg/dL (8.5-10.1)
[2020-10-27 10:55] LABS: BLOOD UREA NITROGEN 69.3 mg/dL (7-18); MAGNESIUM 1.6 mg/dL (1.8-2.4)
[2020-10-27 10:58] LABS: CREATININE 3.5 mg/dL (0.55-1.3); PHOSPHOROUS 5.1 mg/dL (2.5-4.9)
[2020-10-27 10:59] LABS: BILIRUBIN,TOTAL 0.3 mg/dL (0.2-1); TOT PROT 6.7 g/dl (6.4-8.2)
[2020-10-27] MEDS: clonazePAM 0.5 MG TABLET PO PRN (16:57)
[2020-10-27 17:15] VITALS: BP 132/69; PULSE 67; TEMP 98.2
== END 2020-10-27 18:37 | DRG 683 ==
LOC: JER 13:20 → JERBED 16:36 → J8W 20:18
PROVIDERS: ADMIT Family Medicine; ATTEND Family Medicine
PROC: 30233N1 Transfusion of Nonautologous Red Blood Cells into Peripheral Vein, Percutaneous Approach (ICD-10-PCS; principal; 2020-10-20)
DX: N17.9 Acute kidney failure, unspecified (principal); N39.0 Urinary tract infection, site not specified; I12.9 Hypertensive chronic kidney disease with stage 1 through stage 4 chronic kidney disease, or unspecified chronic kidney disease; E11.22 Type 2 diabetes mellitus with diabetic chronic kidney disease; F25.9 Schizoaffective disorder, unspecified; J43.9 Emphysema, unspecified; D50.9 Iron deficiency anemia, unspecified; K21.9 Gastro-esophageal reflux disease without esophagitis; R33.9 Retention of urine, unspecified; R30.0 Dysuria; F41.8 Other specified anxiety disorders; E87.5 Hyperkalemia; N18.9 Chronic kidney disease, unspecified
CPT/HCPCS: 36415; 36430; 76775-TC; 80048; 80053; 81003; 82340; 82436; 82570; 82607; 82746; 82962; 83516; 83520; 83540; 83550; 83735; 83935; 84100; 84133; 84155; 84156; 84165; 84300; 84443; 85025; 85027; 85610; 85730; 86038; 86225; 86256; 86850; 86900; 86901; 86922; 87086; 93005; 93010; 94640; 97116-GP; 97161-GP; 99285-25; C9803; J1644; J1756; P9058; U0003; U0005

== ENCOUNTER 2020-12-18 22:30 | Inpatient (IN) | payer OTHER ==
[2020-12-18 22:58] VITALS: BMI 26.1
[2020-12-18] MEDS ORDERED: ACETAMINOPHEN 1000 MG/100 ML VIAL IVPB ONE (23:04)
[2020-12-18] MEDS ORDERED: SODIUM CHLORIDE 500 ML IV STA (23:04)
[2020-12-18] MEDS ORDERED: ACETAMINOPHEN INJECTION 100 ML IVPB ONE (23:48)
[2020-12-18 23:55] LABS: BASO % 0.4 % (0-2.0); EOS % 3.5 % (0-4.5); LYMPH % 21.2 % (8-40); MCH 30.4 pg (25.7-33.7); MCHC 34.1 g/dl (32.0-36.0); MEAN CELL VOLUME 89.1 fl (80-96); NEUT % 65.9 % (42.8-82.8); PLATELET COUNT 117 10^3/uL (134-434); RBC 2.14 M/mm3 (3.60-5.2); RDW 14.1 % (11.6-15.6); WHITE BLOOD COUNT 9.3 K/mm3 (4.0-10.0)
[2020-12-18 23:56] LABS: HEMOGLOBIN 6.5 GM/dL (10.7-15.3)
[2020-12-19 00:02] LABS: INR 1.04 (0.83-1.09); PROTHROMBIN TIME (PATIENT) 11.7 SEC (9.7-13.0)
[2020-12-19 00:05] LABS: ACTIVATED PTT 32.5 SECONDS (25.2-36.5)
[2020-12-19 00:12] LABS: CHLORIDE 110 mmol/L (98-107); SODIUM 141 mmol/L (136-145)
[2020-12-19 00:14] LABS: ALBUMIN 2.9 g/dl (3.4-5.0); ANION GAP 13 MMOL/L (8-16); CALCIUM 7.6 mg/dL (8.5-10.1); CO2 18 mmol/L (21-32); GLUCOSE,RANDOM 66 mg/dL (74-106); MAGNESIUM 1.9 mg/dL (1.8-2.4)
[2020-12-19 00:18] LABS: SGOT/AST 17 U/L (15-37); SGPT/ALT 37 U/L (13-61)
[2020-12-19 00:20] LABS: ALK PHOS 86 U/L (45-117); BILIRUBIN,TOTAL 0.2 mg/dL (0.2-1); TOT PROT 6.9 g/dl (6.4-8.2)
[2020-12-19 00:46] LABS: BLOOD UREA NITROGEN 112.2 mg/dL (7-18); CREATININE 8.1 mg/dL (0.55-1.3); PHOSPHOROUS 9.2 mg/dL (2.5-4.9)
[2020-12-19] MEDS ORDERED: DEXTROSE 50%-WATER - 25 GM/50 ML VIAL IVPUSH ONE ×2 (00:58→01:07)
[2020-12-19] MEDS ORDERED: INSULIN REGULAR HUMAN 100 UNITS/ML *VIAL IVPUSH ONE (00:58)
[2020-12-19 01:02] LABS: EPI CELLS 17 /uL (0-25.1); HYALINE CASTS 29 /uL (0-3.1); URINE APPEARANCE CLOUDY; URINE BACTERIA 7197 /uL (0-1359); URINE BILIRUBIN NEGATIVE (NEGATIVE); URINE COLOR YELLOW; URINE GLUCOSE (UA) NEGATIVE (NEGATIVE); URINE KETONE NEGATIVE (NEGATIVE); URINE LEUK ESTERASE 3+ (NEGATIVE); URINE NITRITE POSITIVE (NEGATIVE); URINE PROTEIN 2+ (NEGATIVE); URINE RBC 10 /uL (0-23.9); URINE UROBILINOGEN 0.2 mg/dL (0.2-1.0); URINE WBC 658 /uL (0-25.8)
[2020-12-19] MEDS ORDERED: CEFTRIAXONE 1,000 MG in DEXTROSE 5%-WATER - 50 ML IVPB ONE (01:07)
[2020-12-19] MEDS ORDERED: DEXTROSE 5%-0.45% SALINE 1,000 ML IV SCH (01:15)
[2020-12-19] MEDS ORDERED: DEXTROSE 50%-WATER - 25 GM/50 ML VIAL ONE (01:21)
[2020-12-19] MEDS ORDERED: DEXTROSE 50%-WATER 25 GM/50 ML DISP.SYRIN ONE (01:22)
[2020-12-19] MEDS ORDERED: CEFTRIAXONE 1 GM/50 ML BAG ONE ×2 (01:22→10:55)
[2020-12-19] MEDS ORDERED: INSULIN REGULAR HUMAN 100 UNITS/ML *VIAL ONE (01:49)
[2020-12-19 03:57] LABS: IRON SERUM 121 ug/dL (50-175)
[2020-12-19 03:58] LABS: TOTAL IRON BINDING CAPACITY 204 ug/dL (250-450)
[2020-12-19] MEDS ORDERED: ADENOSINE 6 MG/2 ML VIAL IVPUSH ONE ×3 (03:58→03:59)
[2020-12-19] MEDS ORDERED: MELATONIN 5 MG TABLETS PO PRN (04:57)
[2020-12-19] MEDS ORDERED: ALBUTEROL SO4 2.5/IPRATROPIUM 0.5 INH SOL 3 ML VIAL.NEB. NEB PRN (04:57)
[2020-12-19] MEDS ORDERED: PHENOL 177 ML SPRAY BOTTLE MM PRN (05:13)
[2020-12-19] MEDS: INSULIN SLIDING SCALE (NOVOLOG) 1 VIAL SQ SCH ×3 (06:17→12:18)
[2020-12-19 06:36] LABS: BASO % 0.2 % (0-2.0); EOS % 2.6 % (0-4.5); HEMATOCRIT 18.2 % (32.4-45.2); LYMPH % 15.6 % (8-40); MCH 31.1 pg (25.7-33.7); MCHC 34.3 g/dl (32.0-36.0); MEAN CELL VOLUME 90.7 fl (80-96); MEAN PLT VOLUME 8.9 fl (7.5-11.1); MONO % 7.8 % (3.8-10.2); NEUT % 73.8 % (42.8-82.8); PLATELET COUNT 104 10^3/uL (134-434); RDW 14.2 % (11.6-15.6); WHITE BLOOD COUNT 9.6 K/mm3 (4.0-10.0)
[2020-12-19 06:40] LABS: HEMOGLOBIN 6.2 GM/dL (10.7-15.3)
[2020-12-19 06:55] LABS: CHLORIDE 111 mmol/L (98-107); SODIUM 140 mmol/L (136-145)
[2020-12-19 07:01] LABS: ALBUMIN 2.8 g/dl (3.4-5.0); CALCIUM 7.4 mg/dL (8.5-10.1)
[2020-12-19 07:02] LABS: ANION GAP 14 MMOL/L (8-16); CO2 15 mmol/L (21-32); GLUCOSE,RANDOM 92 mg/dL (74-106); MAGNESIUM 1.8 mg/dL (1.8-2.4)
[2020-12-19 07:06] LABS: SGOT/AST 17 U/L (15-37); SGPT/ALT 35 U/L (13-61)
[2020-12-19 07:08] LABS: BILIRUBIN,TOTAL 0.2 mg/dL (0.2-1); TOT PROT 6.6 g/dl (6.4-8.2)
[2020-12-19 07:09] LABS: ALK PHOS 82 U/L (45-117)
[2020-12-19] MEDS ORDERED: SEVELAMER CARBONATE 800 MG TAB (FP) PO SCH (08:00)
[2020-12-19 08:20] LABS: BLOOD UREA NITROGEN 110.4 mg/dL (7-18); CREATININE 7.8 mg/dL (0.55-1.3); PHOSPHOROUS 8.8 mg/dL (2.5-4.9)
[2020-12-19] MEDS: CEFTRIAXONE 1 GM in DEXTROSE 5%-WATER - 50 ML IVPB SCH (10:28)
[2020-12-19] MEDS ORDERED: PANTOPRAZOLE 40 MG TABLET ONE (10:31)
[2020-12-19] MEDS ORDERED: QUEtiapine FUMARATE 100 MG TABLET (FP) ONE (10:32)
[2020-12-19] MEDS: QUEtiapine FUMARATE 200 MG TABLET PO SCH ×2 (10:37→22:06)
[2020-12-19] MEDS: PANTOPRAZOLE 40 MG TABLET PO SCH (10:37)
[2020-12-19] MEDS ORDERED: clonazePAM 0.5 MG TABLET ONE ×2 (10:38→18:07)
[2020-12-19] MEDS: clonazePAM 0.5 MG TABLET PO PRN ×2 (10:40→18:11)
[2020-12-19] MEDS: BUDESONIDE/FORMETEROL FUMARATE 160/4.5 mcg INHALER IH SCH ×2 (10:40→22:07)
[2020-12-19 12:30] LABS: BASO % 0.4 % (0-2.0); EOS % 2.7 % (0-4.5); HEMATOCRIT 24.4 % (32.4-45.2); HEMOGLOBIN 8.1 GM/dL (10.7-15.3); LYMPH % 12.7 % (8-40); MCH 30.9 pg (25.7-33.7); MCHC 33.3 g/dl (32.0-36.0); MEAN CELL VOLUME 92.6 fl (80-96); MONO % 6.4 % (3.8-10.2); NEUT % 77.8 % (42.8-82.8); PLATELET COUNT 115 10^3/uL (134-434); RBC 2.63 M/mm3 (3.60-5.2); RDW 14.2 % (11.6-15.6); WHITE BLOOD COUNT 10.2 K/mm3 (4.0-10.0)
[2020-12-19] MEDS ORDERED: SODIUM BICARBONATE 8.4% 50 MEQ/50 ML DISP.SYRIN IVPUSH ONE (13:57)
[2020-12-19] MEDS ORDERED: SODIUM BICARBONATE 8.4% - 50 ML ONE (14:31)
[2020-12-19] MEDS ORDERED: SODIUM ZIRCONIUM CYCLOSILICATE (LOKELMA) 5 GM PACKET ONE (14:31)
[2020-12-19] MEDS: SODIUM ZIRCONIUM CYCLOSILICATE (LOKELMA) 5 GM PACKET PO SCH (14:46)
[2020-12-19] MEDS: DEXTROSE 5%-0.45% SALINE 1,000 ML IV SCH (15:57)
[2020-12-19] MEDS ORDERED: MELATONIN 5 MG TABLETS ONE (20:12)
[2020-12-19] MEDS: MELATONIN 5 MG TABLETS PO SCH (22:06)
[2020-12-20] MEDS: SODIUM BICARBONATE 650 MG TABLET PO SCH ×3 (00:05→21:40)
[2020-12-20] MEDS: INSULIN SLIDING SCALE (NOVOLOG) 1 VIAL SQ SCH ×3 (00:08→22:17)
[2020-12-20] MEDS ORDERED: cefTRIAXone SODIUM 1 GM VIAL ONE (09:52)
[2020-12-20] MEDS ORDERED: PT OWN MED DRAWER 7, Y5N ONE (09:52)
[2020-12-20] MEDS ORDERED: DEXTROSE 5%-WATER - 50 ML IVPB ONE (09:53)
[2020-12-20] MEDS: clonazePAM 0.5 MG TABLET PO PRN ×3 (09:54→21:40)
[2020-12-20] MEDS: PANTOPRAZOLE 40 MG TABLET PO SCH (09:54)
[2020-12-20] MEDS: CEFTRIAXONE 1 GM in DEXTROSE 5%-WATER - 50 ML IVPB SCH (09:56)
[2020-12-20] MEDS: QUEtiapine FUMARATE 200 MG TABLET PO SCH ×2 (09:56→22:16)
[2020-12-20] MEDS: SODIUM ZIRCONIUM CYCLOSILICATE (LOKELMA) 5 GM PACKET PO SCH (12:15)
[2020-12-20] MEDS: BUDESONIDE/FORMETEROL FUMARATE 160/4.5 mcg INHALER IH SCH ×2 (12:38→21:41)
[2020-12-20] MEDS: MELATONIN 5 MG TABLETS PO SCH (21:40)
[2020-12-21] MEDS ORDERED: cefTRIAXone SODIUM 1 GM VIAL ONE (09:01)
[2020-12-21] MEDS ORDERED: PT OWN MED DRAWER 7, Y5N ONE ×2 (09:01→20:44)
[2020-12-21] MEDS ORDERED: DEXTROSE 5%-WATER - 50 ML IVPB ONE (09:02)
[2020-12-21] MEDS: ACETAMINOPHEN 500 MG TABLET (FP) PO PRN (09:50)
[2020-12-21] MEDS: CEFTRIAXONE 1 GM in DEXTROSE 5%-WATER - 50 ML IVPB SCH (09:50)
[2020-12-21] MEDS: PANTOPRAZOLE 40 MG TABLET PO SCH (09:51)
[2020-12-21] MEDS: SODIUM BICARBONATE 650 MG TABLET PO SCH ×2 (09:51→21:14)
[2020-12-21] MEDS: clonazePAM 0.5 MG TABLET PO PRN ×2 (09:51→21:21)
[2020-12-21] MEDS: QUEtiapine FUMARATE 200 MG TABLET PO SCH ×2 (09:51→21:15)
[2020-12-21] MEDS: BUDESONIDE/FORMETEROL FUMARATE 160/4.5 mcg INHALER IH SCH ×2 (10:28→21:25)
[2020-12-21] MEDS: INSULIN SLIDING SCALE (NOVOLOG) 1 VIAL SQ SCH ×4 (13:35→21:45)
[2020-12-21] MEDS: DEXTROSE 5%-0.45% SALINE 1,000 ML IV SCH (15:20)
[2020-12-21] MEDS: oxyCODONE HCL 5 MG TABLET PO PRN ×2 (15:42→21:14)
[2020-12-21] MEDS: ACETAMINOPHEN 325 MG TABLET (FP) PO PRN (15:43)
[2020-12-21] MEDS: MELATONIN 5 MG TABLETS PO SCH (21:15)
[2020-12-22] MEDS: DEXTROSE 5%-0.45% SALINE 1,000 ML IV SCH (00:33)
[2020-12-22] MEDS: INSULIN SLIDING SCALE (NOVOLOG) 1 VIAL SQ SCH ×5 (00:51→21:04)
[2020-12-22] MEDS: oxyCODONE HCL 5 MG TABLET PO PRN ×2 (03:48→21:01)
[2020-12-22] MEDS ORDERED: PT OWN MED DRAWER 7, Y5N ONE ×2 (09:36→20:44)
[2020-12-22] MEDS ORDERED: cefTRIAXone SODIUM 1 GM VIAL ONE (09:36)
[2020-12-22] MEDS ORDERED: DEXTROSE 5%-WATER - 50 ML IVPB ONE (09:36)
[2020-12-22] MEDS: QUEtiapine FUMARATE 200 MG TABLET PO SCH ×2 (09:46→21:03)
[2020-12-22] MEDS: SODIUM BICARBONATE 650 MG TABLET PO SCH ×2 (09:46→21:03)
[2020-12-22] MEDS: PANTOPRAZOLE 40 MG TABLET PO SCH (09:47)
[2020-12-22] MEDS: BUDESONIDE/FORMETEROL FUMARATE 160/4.5 mcg INHALER IH SCH ×2 (09:47→21:04)
[2020-12-22 10:50] LABS: CALCIUM 7.9 mg/dL (8.5-10.1)
[2020-12-22 10:51] LABS: ALBUMIN 2.6 g/dl (3.4-5.0); BLOOD UREA NITROGEN 85.6 mg/dL (7-18)
[2020-12-22 10:54] LABS: CREATININE 6.1 mg/dL (0.55-1.3)
[2020-12-22 10:56] LABS: BILIRUBIN,TOTAL 0.2 mg/dL (0.2-1); TOT PROT 6.3 g/dl (6.4-8.2)
[2020-12-22 11:11] LABS: BASO % 0.5 % (0-2.0); EOS % 4.6 % (0-4.5); HEMATOCRIT 27.6 % (32.4-45.2); HEMOGLOBIN 9.5 GM/dL (10.7-15.3); LYMPH % 16.2 % (8-40); MCH 30.7 pg (25.7-33.7); MCHC 34.4 g/dl (32.0-36.0); MEAN CELL VOLUME 89.1 fl (80-96); MEAN PLT VOLUME 8.5 fl (7.5-11.1); NEUT % 71.7 % (42.8-82.8); RDW 14.4 % (11.6-15.6); WHITE BLOOD COUNT 10.1 K/mm3 (4.0-10.0)
[2020-12-22] MEDS: clonazePAM 0.5 MG TABLET PO PRN ×2 (11:28→21:01)
[2020-12-22 13:00] LABS: PLATELET COUNT 116 10^3/uL (134-434)
[2020-12-22] MEDS: SODIUM CHLORIDE 0.45% 1,000 ML IV SCH ×2 (14:31→23:54)
[2020-12-22] MEDS: MELATONIN 5 MG TABLETS PO SCH (21:08)
[2020-12-22] MEDS: POLYETHYLENE GLYCOL (HEALTHYLAX) 3350 17 GM PACKET PO SCH (21:09)
[2020-12-23] MEDS: INSULIN SLIDING SCALE (NOVOLOG) 1 VIAL SQ SCH ×5 (06:11→22:56)
[2020-12-23] MEDS ORDERED: PT OWN MED DRAWER 7, Y5N ONE (08:50)
[2020-12-23] MEDS: PANTOPRAZOLE 40 MG TABLET PO SCH (09:12)
[2020-12-23] MEDS: QUEtiapine FUMARATE 200 MG TABLET PO SCH ×2 (09:12→21:18)
[2020-12-23] MEDS: POLYETHYLENE GLYCOL (HEALTHYLAX) 3350 17 GM PACKET PO SCH ×2 (09:12→21:22)
[2020-12-23] MEDS: SODIUM BICARBONATE 650 MG TABLET PO SCH ×2 (09:12→21:18)
[2020-12-23] MEDS: oxyCODONE HCL 5 MG TABLET PO PRN ×3 (09:14→21:19)
[2020-12-23] MEDS: BUDESONIDE/FORMETEROL FUMARATE 160/4.5 mcg INHALER IH SCH ×2 (09:19→21:23)
[2020-12-23] MEDS: clonazePAM 0.5 MG TABLET PO PRN ×2 (09:22→19:37)
[2020-12-23 09:39] LABS: BASO % 0.3 % (0-2.0); HEMOGLOBIN 8.9 GM/dL (10.7-15.3); LYMPH % 17.4 % (8-40); MCH 30.4 pg (25.7-33.7); MCHC 33.1 g/dl (32.0-36.0); MEAN CELL VOLUME 91.7 fl (80-96); MEAN PLT VOLUME 8.5 fl (7.5-11.1); MONO % 8.1 % (3.8-10.2); NEUT % 69.2 % (42.8-82.8); PLATELET COUNT 108 10^3/uL (134-434); RBC 2.94 M/mm3 (3.60-5.2); RDW 14.3 % (11.6-15.6); WHITE BLOOD COUNT 9.9 K/mm3 (4.0-10.0)
[2020-12-23 10:03] LABS: CALCIUM 7.9 mg/dL (8.5-10.1)
[2020-12-23 10:04] LABS: ALBUMIN 2.4 g/dl (3.4-5.0); BLOOD UREA NITROGEN 77.9 mg/dL (7-18); MAGNESIUM 1.6 mg/dL (1.8-2.4)
[2020-12-23 10:07] LABS: CREATININE 5.8 mg/dL (0.55-1.3); PHOSPHOROUS 6.6 mg/dL (2.5-4.9)
[2020-12-23 10:08] LABS: BILIRUBIN,TOTAL 0.3 mg/dL (0.2-1); TOT PROT 5.9 g/dl (6.4-8.2)
[2020-12-23] MEDS: SODIUM CHLORIDE 0.45% 1,000 ML IV SCH ×2 (11:31→22:52)
[2020-12-23] MEDS: MELATONIN 5 MG TABLETS PO SCH (21:19)
[2020-12-24] MEDS: INSULIN SLIDING SCALE (NOVOLOG) 1 VIAL SQ SCH ×5 (01:10→21:05)
[2020-12-24] MEDS: clonazePAM 0.5 MG TABLET PO PRN ×3 (05:45→21:06)
[2020-12-24] MEDS: QUEtiapine FUMARATE 200 MG TABLET PO SCH ×2 (09:58→21:06)
[2020-12-24] MEDS: ENOXAPARIN NA (PORCINE) 30 MG/0.3 ML DISP.SYRIN SQ SCH (09:58)
[2020-12-24] MEDS: DULoxetine HCL 20 MG CAPSULE.DR PO SCH (09:58)
[2020-12-24] MEDS: SODIUM BICARBONATE 650 MG TABLET PO SCH ×2 (09:58→21:06)
[2020-12-24] MEDS: PANTOPRAZOLE 40 MG TABLET PO SCH (09:59)
[2020-12-24] MEDS: POLYETHYLENE GLYCOL (HEALTHYLAX) 3350 17 GM PACKET PO SCH ×2 (09:59→21:07)
[2020-12-24] MEDS: BUDESONIDE/FORMETEROL FUMARATE 160/4.5 mcg INHALER IH SCH ×2 (09:59→21:08)
[2020-12-24 11:28] LABS: HEMATOCRIT 25.4 % (32.4-45.2); HEMOGLOBIN 8.5 GM/dL (10.7-15.3); MCH 30.6 pg (25.7-33.7); MCHC 33.5 g/dl (32.0-36.0); MEAN CELL VOLUME 91.2 fl (80-96); MEAN PLT VOLUME 8.8 fl (7.5-11.1); PLATELET COUNT 100 10^3/uL (134-434); RBC 2.78 M/mm3 (3.60-5.2); RDW 14.5 % (11.6-15.6); WHITE BLOOD COUNT 8.4 K/mm3 (4.0-10.0)
[2020-12-24 11:54] LABS: CALCIUM 8.1 mg/dL (8.5-10.1)
[2020-12-24 11:55] LABS: ALBUMIN 2.3 g/dl (3.4-5.0); BLOOD UREA NITROGEN 81.1 mg/dL (7-18)
[2020-12-24 11:58] LABS: CREATININE 6.1 mg/dL (0.55-1.3)
[2020-12-24 11:59] LABS: BILIRUBIN,TOTAL 0.2 mg/dL (0.2-1); TOT PROT 5.9 g/dl (6.4-8.2)
[2020-12-24] MEDS: SODIUM CHLORIDE 0.45% 1,000 ML IV SCH (12:10)
[2020-12-24] MEDS ORDERED: PT OWN MED DRAWER 7, Y5N ONE (14:45)
[2020-12-24] MEDS: MELATONIN 5 MG TABLETS PO SCH (21:06)
[2020-12-25] MEDS: oxyCODONE HCL 5 MG TABLET PO PRN ×3 (04:07→21:05)
[2020-12-25] MEDS: clonazePAM 0.5 MG TABLET PO PRN ×2 (04:11→21:04)
[2020-12-25] MEDS: INSULIN SLIDING SCALE (NOVOLOG) 1 VIAL SQ SCH ×6 (06:45→21:21)
[2020-12-25 09:56] LABS: HEMATOCRIT 23.4 % (32.4-45.2); HEMOGLOBIN 8.1 GM/dL (10.7-15.3); MCH 31.2 pg (25.7-33.7); MCHC 34.6 g/dl (32.0-36.0); MEAN CELL VOLUME 90.3 fl (80-96); MEAN PLT VOLUME 8.8 fl (7.5-11.1); PLATELET COUNT 104 10^3/uL (134-434); RBC 2.59 M/mm3 (3.60-5.2); WHITE BLOOD COUNT 7.7 K/mm3 (4.0-10.0)
[2020-12-25] MEDS: ENOXAPARIN NA (PORCINE) 30 MG/0.3 ML DISP.SYRIN SQ SCH (10:00)
[2020-12-25] MEDS: POLYETHYLENE GLYCOL (HEALTHYLAX) 3350 17 GM PACKET PO SCH (10:00)
[2020-12-25] MEDS: PANTOPRAZOLE 40 MG TABLET PO SCH (10:00)
[2020-12-25] MEDS: SODIUM BICARBONATE 650 MG TABLET PO SCH ×2 (10:00→21:04)
[2020-12-25] MEDS: DULoxetine HCL 20 MG CAPSULE.DR PO SCH (10:00)
[2020-12-25] MEDS: QUEtiapine FUMARATE 200 MG TABLET PO SCH ×2 (10:01→21:04)
[2020-12-25] MEDS ORDERED: PT OWN MED DRAWER 7, Y5N ONE ×4 (10:04→20:18)
[2020-12-25 10:22] LABS: ALBUMIN 2.4 g/dl (3.4-5.0)
[2020-12-25 10:23] LABS: CALCIUM 8.2 mg/dL (8.5-10.1)
[2020-12-25 10:24] LABS: BILIRUBIN,TOTAL 0.3 mg/dL (0.2-1); BLOOD UREA NITROGEN 90.3 mg/dL (7-18); TOT PROT 6.1 g/dl (6.4-8.2)
[2020-12-25 10:27] LABS: CREATININE 6.1 mg/dL (0.55-1.3)
[2020-12-25] MEDS: SODIUM CHLORIDE 0.45% 1,000 ML IV SCH (13:21)
[2020-12-25] MEDS: BUDESONIDE/FORMETEROL FUMARATE 160/4.5 mcg INHALER IH SCH ×2 (13:22→22:12)
[2020-12-25] MEDS ORDERED: SODIUM ZIRCONIUM CYCLOSILICATE (LOKELMA) 5 GM PACKET PO ONE (15:53)
[2020-12-25] MEDS: MELATONIN 5 MG TABLETS PO SCH (21:04)
[2020-12-26] MEDS: oxyCODONE HCL 5 MG TABLET PO PRN (05:12)
[2020-12-26] MEDS: POLYETHYLENE GLYCOL (HEALTHYLAX) 3350 17 GM PACKET PO SCH ×3 (05:14→21:14)
[2020-12-26] MEDS: clonazePAM 0.5 MG TABLET PO PRN ×3 (05:15→21:17)
[2020-12-26] MEDS: INSULIN SLIDING SCALE (NOVOLOG) 1 VIAL SQ SCH ×6 (08:28→21:27)
[2020-12-26] MEDS: ENOXAPARIN NA (PORCINE) 30 MG/0.3 ML DISP.SYRIN SQ SCH (11:25)
[2020-12-26] MEDS: DULoxetine HCL 20 MG CAPSULE.DR PO SCH (11:26)
[2020-12-26] MEDS: SODIUM BICARBONATE 650 MG TABLET PO SCH ×2 (11:26→21:14)
[2020-12-26] MEDS: PANTOPRAZOLE 40 MG TABLET PO SCH (11:27)
[2020-12-26] MEDS: QUEtiapine FUMARATE 200 MG TABLET PO SCH ×2 (11:27→21:14)
[2020-12-26] MEDS: BUDESONIDE/FORMETEROL FUMARATE 160/4.5 mcg INHALER IH SCH ×2 (11:28→21:27)
[2020-12-26 11:32] LABS: ALBUMIN 2.4 g/dl (3.4-5.0)
[2020-12-26 11:35] LABS: CREATININE 6.1 mg/dL (0.55-1.3)
[2020-12-26 11:36] LABS: BILIRUBIN,TOTAL 0.2 mg/dL (0.2-1); TOT PROT 6.2 g/dl (6.4-8.2)
[2020-12-26] MEDS: SODIUM CHLORIDE 0.45% 1,000 ML IV SCH (12:38)
[2020-12-26] MEDS: ACETAMINOPHEN 500 MG TABLET (FP) PO PRN (15:45)
[2020-12-26] MEDS ORDERED: KETOROLAC TROMETHAMINE 30 MG/1 ML VIAL IVPUSH ONE (17:30)
[2020-12-26] MEDS: MELATONIN 5 MG TABLETS PO SCH (21:14)
[2020-12-27] MEDS: INSULIN SLIDING SCALE (NOVOLOG) 1 VIAL SQ SCH ×4 (04:39→20:18)
[2020-12-27] MEDS: SODIUM CHLORIDE 0.45% 1,000 ML IV SCH ×2 (09:00→17:40)
[2020-12-27] MEDS: ENOXAPARIN NA (PORCINE) 30 MG/0.3 ML DISP.SYRIN SQ SCH (10:00)
[2020-12-27] MEDS: PANTOPRAZOLE 40 MG TABLET PO SCH (10:01)
[2020-12-27] MEDS: SODIUM BICARBONATE 650 MG TABLET PO SCH ×3 (10:01→21:07)
[2020-12-27] MEDS: DULoxetine HCL 20 MG CAPSULE.DR PO SCH (10:01)
[2020-12-27] MEDS: QUEtiapine FUMARATE 200 MG TABLET PO SCH ×2 (10:01→21:07)
[2020-12-27] MEDS: POLYETHYLENE GLYCOL (HEALTHYLAX) 3350 17 GM PACKET PO SCH ×3 (10:01→21:03)
[2020-12-27] MEDS: BUDESONIDE/FORMETEROL FUMARATE 160/4.5 mcg INHALER IH SCH ×2 (10:02→21:08)
[2020-12-27] MEDS ORDERED: PT OWN MED DRAWER 7, Y5N ONE ×2 (10:02→21:07)
[2020-12-27] MEDS: clonazePAM 0.5 MG TABLET PO PRN ×2 (10:12→20:10)
[2020-12-27] MEDS: ACETAMINOPHEN 325 MG TABLET (FP) PO PRN (20:10)
[2020-12-27 21:07] LABS: ALBUMIN 2.6 g/dl (3.4-5.0); BLOOD UREA NITROGEN 92.6 mg/dL (7-18); CALCIUM 7.7 mg/dL (8.5-10.1)
[2020-12-27] MEDS: MELATONIN 5 MG TABLETS PO SCH (21:07)
[2020-12-27 21:11] LABS: CREATININE 6.6 mg/dL (0.55-1.3)
[2020-12-27 21:12] LABS: BILIRUBIN,TOTAL 0.3 mg/dL (0.2-1); TOT PROT 6.7 g/dl (6.4-8.2)
[2020-12-27] MEDS: SODIUM ZIRCONIUM CYCLOSILICATE (LOKELMA) 5 GM PACKET PO SCH (22:06)
[2020-12-28] MEDS: INSULIN SLIDING SCALE (NOVOLOG) 1 VIAL SQ SCH ×6 (01:17→21:12)
[2020-12-28] MEDS ORDERED: PT OWN MED DRAWER 7, Y5N ONE ×2 (09:42→15:02)
[2020-12-28] MEDS: QUEtiapine FUMARATE 200 MG TABLET PO SCH ×2 (11:26→21:06)
[2020-12-28] MEDS: DULoxetine HCL 20 MG CAPSULE.DR PO SCH (11:26)
[2020-12-28 11:27] LABS: BASO % 0.3 % (0-2.0); EOS % 6.1 % (0-4.5); HEMATOCRIT 22.3 % (32.4-45.2); HEMOGLOBIN 7.4 GM/dL (10.7-15.3); MCH 31.2 pg (25.7-33.7); MCHC 33.3 g/dl (32.0-36.0); MEAN CELL VOLUME 93.5 fl (80-96); MEAN PLT VOLUME 8.8 fl (7.5-11.1); MONO % 7.8 % (3.8-10.2); NEUT % 72.8 % (42.8-82.8); PLATELET COUNT 120 10^3/uL (134-434); RBC 2.38 M/mm3 (3.60-5.2); RDW 14.3 % (11.6-15.6)
[2020-12-28] MEDS: ENOXAPARIN NA (PORCINE) 30 MG/0.3 ML DISP.SYRIN SQ SCH (11:27)
[2020-12-28] MEDS: PANTOPRAZOLE 40 MG TABLET PO SCH (11:27)
[2020-12-28] MEDS: POLYETHYLENE GLYCOL (HEALTHYLAX) 3350 17 GM PACKET PO SCH ×2 (11:28→21:07)
[2020-12-28] MEDS: SODIUM CHLORIDE 0.45% 1,000 ML IV SCH ×2 (11:29→16:24)
[2020-12-28] MEDS: BUDESONIDE/FORMETEROL FUMARATE 160/4.5 mcg INHALER IH SCH ×2 (11:29→21:06)
[2020-12-28] MEDS: SODIUM ZIRCONIUM CYCLOSILICATE (LOKELMA) 5 GM PACKET PO SCH (11:32)
[2020-12-28] MEDS: SODIUM BICARBONATE 650 MG TABLET PO SCH ×2 (11:32→21:06)
[2020-12-28] MEDS: clonazePAM 0.5 MG TABLET PO PRN ×2 (11:32→21:06)
[2020-12-28 11:46] LABS: ALBUMIN 2.3 g/dl (3.4-5.0)
[2020-12-28 11:47] LABS: CALCIUM 7.8 mg/dL (8.5-10.1)
[2020-12-28 11:48] LABS: BLOOD UREA NITROGEN 89.5 mg/dL (7-18)
[2020-12-28 11:51] LABS: CREATININE 6.3 mg/dL (0.55-1.3)
[2020-12-28 11:52] LABS: BILIRUBIN,TOTAL 0.2 mg/dL (0.2-1)
[2020-12-28 11:53] LABS: TOT PROT 6.1 g/dl (6.4-8.2)
[2020-12-28] MEDS ORDERED: EPOETIN ALFA-EPBX 10,000 UNIT/ML VIAL SQ ONE (12:46)
[2020-12-28] MEDS: MELATONIN 5 MG TABLETS PO SCH (21:06)
[2020-12-29] MEDS: INSULIN SLIDING SCALE (NOVOLOG) 1 VIAL SQ SCH ×5 (01:00→22:13)
[2020-12-29 08:40] LABS: BASO % 0.3 % (0-2.0); EOS % 4.3 % (0-4.5); HEMATOCRIT 20.5 % (32.4-45.2); LYMPH % 16.7 % (8-40); MCH 31.2 pg (25.7-33.7); MCHC 33.9 g/dl (32.0-36.0); MEAN CELL VOLUME 91.9 fl (80-96); MEAN PLT VOLUME 9.1 fl (7.5-11.1); MONO % 9.1 % (3.8-10.2); NEUT % 69.6 % (42.8-82.8); PLATELET COUNT 117 10^3/uL (134-434); RBC 2.23 M/mm3 (3.60-5.2); RDW 14.4 % (11.6-15.6); WHITE BLOOD COUNT 6.5 K/mm3 (4.0-10.0)
[2020-12-29 08:57] LABS: HEMOGLOBIN 6.9 GM/dL (10.7-15.3)
[2020-12-29] MEDS ORDERED: FUROSEMIDE 40 MG/4 ML INJECTABLE VIAL IVPUSH SCH (09:07)
[2020-12-29 09:32] LABS: CHLORIDE 113 mmol/L (98-107); SODIUM 140 mmol/L (136-145)
[2020-12-29 09:41] LABS: ALBUMIN 2.3 g/dl (3.4-5.0); CALCIUM 7.9 mg/dL (8.5-10.1); CO2 20 mmol/L (21-32)
[2020-12-29 09:42] LABS: BLOOD UREA NITROGEN 93.4 mg/dL (7-18); GLUCOSE,RANDOM 115 mg/dL (74-106)
[2020-12-29 09:45] LABS: SGOT/AST 41 U/L (15-37); SGPT/ALT 53 U/L (13-61)
[2020-12-29 09:46] LABS: BILIRUBIN,TOTAL 0.3 mg/dL (0.2-1)
[2020-12-29 09:48] LABS: ALK PHOS 178 U/L (45-117); ANION GAP 7 MMOL/L (8-16)
[2020-12-29] MEDS ORDERED: PT OWN MED DRAWER 7, Y5N ONE ×3 (10:33→22:01)
[2020-12-29] MEDS ORDERED: ALBUTEROL SO4 0.083% IH SOL 2.5 MG/3 ML VIAL.NEB. NEB PRN (10:51)
[2020-12-29] MEDS ORDERED: FUROSEMIDE 40 MG/4 ML INJECTABLE VIAL IVPUSH ONE (11:15)
[2020-12-29] MEDS ORDERED: SODIUM BICARBONATE 8.4% 50 MEQ/50 ML DISP.SYRIN IVPUSH ONE (11:15)
[2020-12-29] MEDS: clonazePAM 0.5 MG TABLET PO PRN (11:16)
[2020-12-29] MEDS: QUEtiapine FUMARATE 200 MG TABLET PO SCH ×2 (11:16→22:06)
[2020-12-29] MEDS: SODIUM BICARBONATE 650 MG TABLET PO SCH ×2 (11:17→22:06)
[2020-12-29] MEDS: PANTOPRAZOLE 40 MG TABLET PO SCH (11:17)
[2020-12-29] MEDS: POLYETHYLENE GLYCOL (HEALTHYLAX) 3350 17 GM PACKET PO SCH ×2 (11:17→22:03)
[2020-12-29] MEDS: DULoxetine HCL 20 MG CAPSULE.DR PO SCH (11:17)
[2020-12-29] MEDS: SODIUM ZIRCONIUM CYCLOSILICATE (LOKELMA) 5 GM PACKET PO SCH ×3 (11:18→22:06)
[2020-12-29] MEDS: ENOXAPARIN NA (PORCINE) 30 MG/0.3 ML DISP.SYRIN SQ SCH (11:18)
[2020-12-29] MEDS ORDERED: INSULIN REGULAR HUMAN 100 UNITS/ML *VIAL IVPUSH ONE (11:30)
[2020-12-29] MEDS ORDERED: CALCIUM GLUCONATE 10% - 1,000 MG/10 ML VIAL IVPUSH ONE (11:30)
[2020-12-29] MEDS ORDERED: DEXTROSE 50%-WATER 25 GM/50 ML DISP.SYRIN IVPUSH ONE ×2 (11:30)
[2020-12-29] MEDS: BUDESONIDE/FORMETEROL FUMARATE 160/4.5 mcg INHALER IH SCH ×2 (11:41→22:14)
[2020-12-29] MEDS ORDERED: DEXTROSE 50%-WATER 25 GM/50 ML DISP.SYRIN ONE (12:28)
[2020-12-29] MEDS ORDERED: TRIPLE LUMEN FLUSH 4 ML ML IVPUSH PRN (14:36)
[2020-12-29] MEDS: ACETAMINOPHEN 500 MG TABLET (FP) PO PRN (18:46)
[2020-12-29] MEDS: MELATONIN 5 MG TABLETS PO SCH (22:06)
[2020-12-29] MEDS: SODIUM CHLORIDE 0.45% 1,000 ML IV SCH (22:14)
[2020-12-30] MEDS: INSULIN SLIDING SCALE (NOVOLOG) 1 VIAL SQ SCH ×8 (01:00→21:51)
[2020-12-30] MEDS ORDERED: PT OWN MED DRAWER 7, Y5N ONE ×2 (09:44→20:41)
[2020-12-30 09:53] LABS: HEMATOCRIT 21.9 % (32.4-45.2); HEMOGLOBIN 7.4 GM/dL (10.7-15.3); MCH 31.2 pg (25.7-33.7); MCHC 33.9 g/dl (32.0-36.0); MEAN CELL VOLUME 92.1 fl (80-96); MEAN PLT VOLUME 8.4 fl (7.5-11.1); PLATELET COUNT 154 10^3/uL (134-434); RBC 2.38 M/mm3 (3.60-5.2); WHITE BLOOD COUNT 8.7 K/mm3 (4.0-10.0)
[2020-12-30] MEDS: DULoxetine HCL 20 MG CAPSULE.DR PO SCH (09:56)
[2020-12-30] MEDS: PANTOPRAZOLE 40 MG TABLET PO SCH (09:56)
[2020-12-30] MEDS: clonazePAM 0.5 MG TABLET PO PRN ×2 (09:56→21:11)
[2020-12-30] MEDS: QUEtiapine FUMARATE 200 MG TABLET PO SCH ×2 (09:56→21:11)
[2020-12-30] MEDS: SODIUM BICARBONATE 650 MG TABLET PO SCH ×2 (09:56→21:11)
[2020-12-30] MEDS: SODIUM ZIRCONIUM CYCLOSILICATE (LOKELMA) 5 GM PACKET PO SCH ×2 (09:57→21:09)
[2020-12-30] MEDS: POLYETHYLENE GLYCOL (HEALTHYLAX) 3350 17 GM PACKET PO SCH ×2 (09:58→21:09)
[2020-12-30] MEDS: ENOXAPARIN NA (PORCINE) 30 MG/0.3 ML DISP.SYRIN SQ SCH ×2 (10:00→10:56)
[2020-12-30] MEDS: BUDESONIDE/FORMETEROL FUMARATE 160/4.5 mcg INHALER IH SCH ×2 (10:06→21:11)
[2020-12-30 10:32] LABS: CALCIUM 8.3 mg/dL (8.5-10.1)
[2020-12-30 10:33] LABS: ALBUMIN 2.3 g/dl (3.4-5.0)
[2020-12-30 10:50] LABS: BILIRUBIN,TOTAL 0.4 mg/dL (0.2-1)
[2020-12-30 10:51] LABS: TOT PROT 6.3 g/dl (6.4-8.2)
[2020-12-30 11:29] LABS: BLOOD UREA NITROGEN 88.4 mg/dL (7-18)
[2020-12-30] MEDS: MELATONIN 5 MG TABLETS PO SCH (21:10)
[2020-12-31] MEDS: INSULIN SLIDING SCALE (NOVOLOG) 1 VIAL SQ SCH ×6 (01:00→21:49)
[2020-12-31 07:03] LABS: BASO % 0.6 % (0-2.0); EOS % 6.6 % (0-4.5); HEMATOCRIT 21.3 % (32.4-45.2); HEMOGLOBIN 7.3 GM/dL (10.7-15.3); LYMPH % 18.7 % (8-40); MCH 31.3 pg (25.7-33.7); MCHC 34.4 g/dl (32.0-36.0); MEAN PLT VOLUME 8.5 fl (7.5-11.1); MONO % 9.2 % (3.8-10.2); NEUT % 64.9 % (42.8-82.8); PLATELET COUNT 169 10^3/uL (134-434); RBC 2.33 M/mm3 (3.60-5.2); WHITE BLOOD COUNT 8.4 K/mm3 (4.0-10.0)
[2020-12-31 07:57] LABS: ALBUMIN 2.3 g/dl (3.4-5.0); CALCIUM 7.9 mg/dL (8.5-10.1)
[2020-12-31 07:58] LABS: BLOOD UREA NITROGEN 89.2 mg/dL (7-18)
[2020-12-31 08:01] LABS: CREATININE 5.7 mg/dL (0.55-1.3)
[2020-12-31 08:02] LABS: BILIRUBIN,TOTAL 0.4 mg/dL (0.2-1); TOT PROT 6.1 g/dl (6.4-8.2)
[2020-12-31] MEDS ORDERED: PT OWN MED DRAWER 7, Y5N ONE ×2 (08:48→19:45)
[2020-12-31] MEDS: SODIUM ZIRCONIUM CYCLOSILICATE (LOKELMA) 5 GM PACKET PO SCH (08:59)
[2020-12-31] MEDS: clonazePAM 0.5 MG TABLET PO PRN ×3 (08:59→23:30)
[2020-12-31] MEDS: POLYETHYLENE GLYCOL (HEALTHYLAX) 3350 17 GM PACKET PO SCH ×2 (08:59→21:13)
[2020-12-31] MEDS: BUDESONIDE/FORMETEROL FUMARATE 160/4.5 mcg INHALER IH SCH ×2 (09:00→21:49)
[2020-12-31] MEDS: QUEtiapine FUMARATE 200 MG TABLET PO SCH ×2 (09:11→21:15)
[2020-12-31] MEDS: DULoxetine HCL 20 MG CAPSULE.DR PO SCH (09:11)
[2020-12-31] MEDS: PANTOPRAZOLE 40 MG TABLET PO SCH (09:11)
[2020-12-31] MEDS: SODIUM BICARBONATE 650 MG TABLET PO SCH ×2 (09:11→21:15)
[2020-12-31] MEDS ORDERED: EPOETIN ALFA-EPBX 40,000 UNIT/ML VIAL SQ ONE (09:18)
[2020-12-31] MEDS: ENOXAPARIN NA (PORCINE) 30 MG/0.3 ML DISP.SYRIN SQ SCH (09:25)
[2020-12-31 13:04] LABS: PHOSPHOROUS 5.4 mg/dL (2.5-4.9)
[2020-12-31 15:06] LABS: EPI CELLS 1 /uL (0-25.1); HYALINE CASTS 55 /uL (0-3.1); URINE APPEARANCE CLOUDY; URINE BACTERIA >9,000 /uL (0-1359); URINE BILIRUBIN NEGATIVE (NEGATIVE); URINE COLOR YELLOW; URINE GLUCOSE (UA) NEGATIVE (NEGATIVE); URINE KETONE NEGATIVE (NEGATIVE); URINE LEUK ESTERASE 2+ (NEGATIVE); URINE NITRITE NEGATIVE (NEGATIVE); URINE PROTEIN 2+ (NEGATIVE); URINE RBC 9 /uL (0-23.9); URINE UROBILINOGEN 0.2 mg/dL (0.2-1.0); URINE WBC 444 /uL (0-25.8)
[2020-12-31] MEDS: SODIUM CHLORIDE 0.45% 1,000 ML IV SCH (21:13)
[2020-12-31] MEDS: MELATONIN 5 MG TABLETS PO SCH (21:14)
[2021-01-01] MEDS: INSULIN SLIDING SCALE (NOVOLOG) 1 VIAL SQ SCH ×6 (00:12→22:25)
[2021-01-01 07:28] LABS: HEMATOCRIT 28.4 % (32.4-45.2); HEMOGLOBIN 9.6 GM/dL (10.7-15.3); MCH 30.2 pg (25.7-33.7); MCHC 33.8 g/dl (32.0-36.0); MEAN CELL VOLUME 89.3 fl (80-96); MEAN PLT VOLUME 8.2 fl (7.5-11.1); PLATELET COUNT 216 10^3/uL (134-434); RBC 3.18 M/mm3 (3.60-5.2); RDW 16.1 % (11.6-15.6); WHITE BLOOD COUNT 10.4 K/mm3 (4.0-10.0)
[2021-01-01 07:48] LABS: CALCIUM 7.9 mg/dL (8.5-10.1)
[2021-01-01 07:49] LABS: ALBUMIN 2.6 g/dl (3.4-5.0); BLOOD UREA NITROGEN 75.7 mg/dL (7-18)
[2021-01-01 07:52] LABS: CREATININE 5.5 mg/dL (0.55-1.3); PHOSPHOROUS 4.7 mg/dL (2.5-4.9)
[2021-01-01 07:53] LABS: BILIRUBIN,TOTAL 0.3 mg/dL (0.2-1)
[2021-01-01 07:54] LABS: TOT PROT 6.8 g/dl (6.4-8.2)
[2021-01-01] MEDS: QUEtiapine FUMARATE 200 MG TABLET PO SCH ×2 (09:23→21:18)
[2021-01-01] MEDS: SODIUM ZIRCONIUM CYCLOSILICATE (LOKELMA) 5 GM PACKET PO SCH (09:24)
[2021-01-01] MEDS: POLYETHYLENE GLYCOL (HEALTHYLAX) 3350 17 GM PACKET PO SCH ×2 (09:24→21:18)
[2021-01-01] MEDS: PANTOPRAZOLE 40 MG TABLET PO SCH (09:24)
[2021-01-01] MEDS: VITAMIN B COMP W-C 1 EA TABLET (NEPHRO-VITE) PO SCH (09:24)
[2021-01-01] MEDS: SODIUM BICARBONATE 650 MG TABLET PO SCH ×2 (09:24→21:18)
[2021-01-01] MEDS: ENOXAPARIN NA (PORCINE) 30 MG/0.3 ML DISP.SYRIN SQ SCH (09:24)
[2021-01-01] MEDS: DULoxetine HCL 20 MG CAPSULE.DR PO SCH (09:24)
[2021-01-01] MEDS: clonazePAM 0.5 MG TABLET PO PRN ×3 (09:31→21:18)
[2021-01-01] MEDS: BUDESONIDE/FORMETEROL FUMARATE 160/4.5 mcg INHALER IH SCH (09:41)
[2021-01-01] MEDS ORDERED: PT OWN MED DRAWER 7, Y5N ONE (12:09)
[2021-01-01] MEDS ORDERED: ACETAMINOPHEN 325 MG TABLET (FP) ONE (17:17)
[2021-01-01] MEDS: ACETAMINOPHEN 325 MG TABLET (FP) PO PRN (17:24)
[2021-01-01] MEDS: MELATONIN 5 MG TABLETS PO SCH (21:19)
[2021-01-02] MEDS: INSULIN SLIDING SCALE (NOVOLOG) 1 VIAL SQ SCH ×3 (07:48→12:09)
[2021-01-02] MEDS ORDERED: PT OWN MED DRAWER 7, Y5N ONE (09:30)
[2021-01-02] MEDS: DULoxetine HCL 20 MG CAPSULE.DR PO SCH (09:36)
[2021-01-02] MEDS: POLYETHYLENE GLYCOL (HEALTHYLAX) 3350 17 GM PACKET PO SCH ×2 (09:36→21:12)
[2021-01-02] MEDS: ENOXAPARIN NA (PORCINE) 30 MG/0.3 ML DISP.SYRIN SQ SCH (09:37)
[2021-01-02] MEDS: VITAMIN B COMP W-C 1 EA TABLET (NEPHRO-VITE) PO SCH (09:37)
[2021-01-02] MEDS: SODIUM ZIRCONIUM CYCLOSILICATE (LOKELMA) 5 GM PACKET PO SCH (09:37)
[2021-01-02] MEDS: PANTOPRAZOLE 40 MG TABLET PO SCH (09:40)
[2021-01-02] MEDS: QUEtiapine FUMARATE 200 MG TABLET PO SCH ×2 (09:41→21:12)
[2021-01-02] MEDS: SODIUM BICARBONATE 650 MG TABLET PO SCH ×2 (09:41→21:12)
[2021-01-02] MEDS: BUDESONIDE/FORMETEROL FUMARATE 160/4.5 mcg INHALER IH SCH ×2 (09:52→21:12)
[2021-01-02] MEDS: clonazePAM 0.5 MG TABLET PO PRN ×2 (09:58→17:40)
[2021-01-02 12:09] LABS: BASO % 0.6 % (0-2.0); EOS % 9.6 % (0-4.5); HEMATOCRIT 26.8 % (32.4-45.2); HEMOGLOBIN 9.1 GM/dL (10.7-15.3); LYMPH % 18.3 % (8-40); MCHC 33.9 g/dl (32.0-36.0); MEAN CELL VOLUME 88.4 fl (80-96); MEAN PLT VOLUME 7.8 fl (7.5-11.1); MONO % 8.9 % (3.8-10.2); NEUT % 62.6 % (42.8-82.8); PLATELET COUNT 184 10^3/uL (134-434); RBC 3.02 M/mm3 (3.60-5.2); RDW 15.5 % (11.6-15.6); WHITE BLOOD COUNT 9.3 K/mm3 (4.0-10.0)
[2021-01-02 12:32] LABS: CALCIUM 7.9 mg/dL (8.5-10.1)
[2021-01-02 12:33] LABS: ALBUMIN 2.6 g/dl (3.4-5.0); MAGNESIUM 1.5 mg/dL (1.8-2.4)
[2021-01-02 12:36] LABS: CREATININE 5.2 mg/dL (0.55-1.3)
[2021-01-02 12:37] LABS: BILIRUBIN,TOTAL 0.4 mg/dL (0.2-1); TOT PROT 6.7 g/dl (6.4-8.2)
[2021-01-02] MEDS ORDERED: MAGNESIUM OXIDE 400 MG TABLET (FP) PO ONE (14:14)
[2021-01-02] MEDS: SODIUM CHLORIDE 0.45% 1,000 ML IV SCH ×3 (15:21→19:31)
[2021-01-02] MEDS: MELATONIN 5 MG TABLETS PO SCH (21:11)
[2021-01-02] MEDS: ACETAMINOPHEN 325 MG TABLET (FP) PO PRN (21:11)
[2021-01-03] MEDS: SODIUM CHLORIDE 0.45% 1,000 ML IV SCH ×3 (01:52→21:19)
[2021-01-03] MEDS: clonazePAM 0.5 MG TABLET PO PRN ×2 (11:05→21:18)
[2021-01-03] MEDS: DULoxetine HCL 20 MG CAPSULE.DR PO SCH (11:29)
[2021-01-03] MEDS: BUDESONIDE/FORMETEROL FUMARATE 160/4.5 mcg INHALER IH SCH ×3 (11:29→21:18)
[2021-01-03] MEDS: ENOXAPARIN NA (PORCINE) 30 MG/0.3 ML DISP.SYRIN SQ SCH (11:30)
[2021-01-03] MEDS: VITAMIN B COMP W-C 1 EA TABLET (NEPHRO-VITE) PO SCH (11:30)
[2021-01-03] MEDS: SODIUM ZIRCONIUM CYCLOSILICATE (LOKELMA) 5 GM PACKET PO SCH (11:30)
[2021-01-03] MEDS: PANTOPRAZOLE 40 MG TABLET PO SCH (11:30)
[2021-01-03] MEDS: POLYETHYLENE GLYCOL (HEALTHYLAX) 3350 17 GM PACKET PO SCH ×2 (11:30→21:18)
[2021-01-03] MEDS: QUEtiapine FUMARATE 200 MG TABLET PO SCH ×2 (11:30→22:23)
[2021-01-03] MEDS: SODIUM BICARBONATE 650 MG TABLET PO SCH ×2 (11:31→21:18)
[2021-01-03 17:44] LABS: BLOOD UREA NITROGEN 78.8 mg/dL (7-18); CALCIUM 7.8 mg/dL (8.5-10.1); MAGNESIUM 1.5 mg/dL (1.8-2.4)
[2021-01-03 17:48] LABS: CREATININE 5.3 mg/dL (0.55-1.3)
[2021-01-03] MEDS: ACETAMINOPHEN 325 MG TABLET (FP) PO PRN (19:14)
[2021-01-03] MEDS: MELATONIN 5 MG TABLETS PO SCH (21:18)
[2021-01-04] MEDS: SODIUM CHLORIDE 0.45% 1,000 ML IV SCH (06:16)
[2021-01-04] MEDS ORDERED: MAGNESIUM 2GM/50ML STERILE WATER IVPB IVPB ONE (08:36)
[2021-01-04] MEDS ORDERED: PT OWN MED DRAWER 7, Y5N ONE (09:51)
[2021-01-04] MEDS: POLYETHYLENE GLYCOL (HEALTHYLAX) 3350 17 GM PACKET PO SCH ×2 (10:37→21:19)
[2021-01-04] MEDS: SODIUM ZIRCONIUM CYCLOSILICATE (LOKELMA) 5 GM PACKET PO SCH (10:37)
[2021-01-04] MEDS: MAGNESIUM OXIDE 400 MG TABLET (FP) PO SCH ×2 (10:38→21:19)
[2021-01-04] MEDS: DULoxetine HCL 20 MG CAPSULE.DR PO SCH (10:38)
[2021-01-04] MEDS: PANTOPRAZOLE 40 MG TABLET PO SCH (10:38)
[2021-01-04] MEDS: VITAMIN B COMP W-C 1 EA TABLET (NEPHRO-VITE) PO SCH (10:38)
[2021-01-04] MEDS: QUEtiapine FUMARATE 200 MG TABLET PO SCH ×2 (10:38→21:19)
[2021-01-04] MEDS: ENOXAPARIN NA (PORCINE) 30 MG/0.3 ML DISP.SYRIN SQ SCH (10:38)
[2021-01-04] MEDS: SODIUM BICARBONATE 650 MG TABLET PO SCH ×2 (10:38→21:19)
[2021-01-04] MEDS: ACETAMINOPHEN 325 MG TABLET (FP) PO PRN (10:45)
[2021-01-04] MEDS: clonazePAM 0.5 MG TABLET PO PRN (10:54)
[2021-01-04] MEDS: BUDESONIDE/FORMETEROL FUMARATE 160/4.5 mcg INHALER IH SCH ×2 (11:00→21:19)
[2021-01-04] MEDS: MELATONIN 5 MG TABLETS PO SCH (21:19)
[2021-01-05 08:18] VITALS: BP 155/70; PULSE 76; TEMP 98.4
[2021-01-05] MEDS: VITAMIN B COMP W-C 1 EA TABLET (NEPHRO-VITE) PO SCH (10:25)
[2021-01-05] MEDS: QUEtiapine FUMARATE 200 MG TABLET PO SCH (10:26)
[2021-01-05] MEDS: PANTOPRAZOLE 40 MG TABLET PO SCH (10:26)
[2021-01-05] MEDS: ACETAMINOPHEN 325 MG TABLET (FP) PO PRN (10:26)
[2021-01-05] MEDS: SODIUM BICARBONATE 650 MG TABLET PO SCH (10:26)
[2021-01-05] MEDS: POLYETHYLENE GLYCOL (HEALTHYLAX) 3350 17 GM PACKET PO SCH (10:27)
[2021-01-05] MEDS: MAGNESIUM OXIDE 400 MG TABLET (FP) PO SCH (10:27)
[2021-01-05] MEDS: DULoxetine HCL 20 MG CAPSULE.DR PO SCH (10:27)
[2021-01-05] MEDS: SODIUM ZIRCONIUM CYCLOSILICATE (LOKELMA) 5 GM PACKET PO SCH (10:27)
[2021-01-05] MEDS: ENOXAPARIN NA (PORCINE) 30 MG/0.3 ML DISP.SYRIN SQ SCH (10:29)
[2021-01-05] MEDS: BUDESONIDE/FORMETEROL FUMARATE 160/4.5 mcg INHALER IH SCH (10:29)
[2021-01-05] MEDS: clonazePAM 0.5 MG TABLET PO PRN (10:40)
[2021-01-05] MEDS ORDERED: PT OWN MED DRAWER 7, Y5N ONE (12:09)
== END 2021-01-05 18:57 | DRG 683 ==
LOC: JER 22:30 → JERBED 23:08 → OBSVTOIN 12-19 03:23 → J4W 12-19 23:12
PROVIDERS: ADMIT Internal Medicine; ATTEND Family Medicine
DX: I12.0 Hypertensive chronic kidney disease with stage 5 chronic kidney disease or end stage renal disease (principal); N18.5 Chronic kidney disease, stage 5; N39.0 Urinary tract infection, site not specified; N17.9 Acute kidney failure, unspecified; J44.9 Chronic obstructive pulmonary disease, unspecified; F25.9 Schizoaffective disorder, unspecified; Z79.4 Long term (current) use of insulin; E87.5 Hyperkalemia; E83.39 Other disorders of phosphorus metabolism; D63.1 Anemia in chronic kidney disease; E11.22 Type 2 diabetes mellitus with diabetic chronic kidney disease; F32.A Depression, unspecified; F41.9 Anxiety disorder, unspecified; I95.9 Hypotension, unspecified; K21.9 Gastro-esophageal reflux disease without esophagitis; R51.9 Headache, unspecified; M79.10 Myalgia, unspecified site
CPT/HCPCS: 36415; 36430; 70450-TC; 70486-TC; 71045-TC-FY; 72125-TC; 76775-TC; 76856-TC; 80048; 80053; 81003; 82550; 82607; 82728; 82746; 82962; 83036; 83540; 83550; 83735; 84100; 84443; 84484; 85025; 85027; 85610; 85651; 85730; 86140; 86850; 86900; 86901; 86922; 87086; 87804; 93005; 93010; 93970-TC; 97116-GP; 97162-GP; 99285-25; C9803; G0378; J0131; P9058; Q5106; U0003; U0005

== ENCOUNTER 2021-02-28 22:16 | Inpatient (IN) | payer OTHER ==
[2021-02-28] MEDS ORDERED: PANTOPRAZOLE SODIUM 40 MG VIAL IVPUSH ONE (22:59)
[2021-02-28] MEDS ORDERED: PANTOPRAZOLE SODIUM 40 MG VIAL ONE (23:33)
[2021-02-28 23:37] LABS: BASO % 0.6 % (0-2.0); EOS % 5.4 % (0-4.5); HEMATOCRIT 19.9 % (32.4-45.2); LYMPH % 24.4 % (8-40); MCH 31.8 pg (25.7-33.7); MCHC 33.9 g/dl (32.0-36.0); MEAN CELL VOLUME 93.9 fl (80-96); NEUT % 60.6 % (42.8-82.8); PLATELET COUNT 152 10^3/uL (134-434); RBC 2.12 M/mm3 (3.60-5.2); RDW 14.7 % (11.6-15.6); WHITE BLOOD COUNT 6.6 K/mm3 (4.0-10.0)
[2021-02-28 23:40] LABS: HEMOGLOBIN 6.8 GM/dL (10.7-15.3)
[2021-03-01 00:08] LABS: CHLORIDE 108 mmol/L (98-107); SODIUM 141 mmol/L (136-145)
[2021-03-01 00:10] LABS: CALCIUM 9.2 mg/dL (8.5-10.1)
[2021-03-01 00:11] LABS: ALBUMIN 3.1 g/dl (3.4-5.0); ANION GAP 8 MMOL/L (8-16); BLOOD UREA NITROGEN 99.3 mg/dL (7-18); CO2 26 mmol/L (21-32); GLUCOSE,RANDOM 112 mg/dL (74-106); LIPASE 256 U/L (73-393); MAGNESIUM 3.2 mg/dL (1.8-2.4)
[2021-03-01 00:14] LABS: CREATININE 6.1 mg/dL (0.55-1.3); SGOT/AST 17 U/L (15-37); SGPT/ALT 18 U/L (13-61)
[2021-03-01 00:15] LABS: BILIRUBIN,TOTAL 0.2 mg/dL (0.2-1)
[2021-03-01 00:16] LABS: TOT PROT 6.8 g/dl (6.4-8.2)
[2021-03-01 00:17] LABS: ALK PHOS 88 U/L (45-117)
[2021-03-01 01:57] LABS: INR 0.99 (0.83-1.09); PROTHROMBIN TIME (PATIENT) 11.4 SEC (9.7-13.0)
[2021-03-01 01:59] LABS: CHLORIDE 108 mmol/L (98-107); SODIUM 140 mmol/L (136-145)
[2021-03-01 02:02] LABS: CALCIUM 9.3 mg/dL (8.5-10.1)
[2021-03-01 02:03] LABS: ANION GAP 7 MMOL/L (8-16); BLOOD UREA NITROGEN 101.4 mg/dL (7-18); CO2 26 mmol/L (21-32); GLUCOSE,RANDOM 98 mg/dL (74-106)
[2021-03-01 02:06] LABS: CREATININE 6.1 mg/dL (0.55-1.3)
[2021-03-01] MEDS ORDERED: ALBUTEROL SO4 2.5/IPRATROPIUM 0.5 INH SOL 3 ML VIAL.NEB. NEB PRN (05:31)
[2021-03-01] MEDS ORDERED: SODIUM ZIRCONIUM CYCLOSILICATE (LOKELMA) 5 GM PACKET ONE ×3 (06:10→10:58)
[2021-03-01] MEDS: SODIUM ZIRCONIUM CYCLOSILICATE (LOKELMA) 5 GM PACKET PO SCH (06:19)
[2021-03-01] MEDS: QUEtiapine FUMARATE 200 MG TABLET PO SCH ×3 (06:20→21:54)
[2021-03-01 10:47] LABS: BASO % 0.5 % (0-2.0); HEMATOCRIT 25.5 % (32.4-45.2); HEMOGLOBIN 8.5 GM/dL (10.7-15.3); LYMPH % 19.2 % (8-40); MCH 30.6 pg (25.7-33.7); MCHC 33.2 g/dl (32.0-36.0); MEAN CELL VOLUME 92.3 fl (80-96); MEAN PLT VOLUME 8.1 fl (7.5-11.1); MONO % 7.9 % (3.8-10.2); NEUT % 66.4 % (42.8-82.8); PLATELET COUNT 136 10^3/uL (134-434); RBC 2.76 M/mm3 (3.60-5.2); RDW 15.5 % (11.6-15.6)
[2021-03-01] MEDS ORDERED: FERROUS SO4 325 MG TABLET (FP) ONE (10:58)
[2021-03-01] MEDS: SODIUM BICARBONATE 650 MG TABLET PO SCH ×2 (11:00→22:38)
[2021-03-01 11:06] LABS: CHLORIDE 110 mmol/L (98-107); SODIUM 142 mmol/L (136-145)
[2021-03-01 11:07] LABS: CALCIUM 9.1 mg/dL (8.5-10.1)
[2021-03-01] MEDS: FERROUS SO4 325 MG TABLET (FP) PO SCH (11:07)
[2021-03-01] MEDS: DULoxetine HCL 20 MG CAPSULE.DR PO SCH (11:07)
[2021-03-01 11:08] LABS: ANION GAP 9 MMOL/L (8-16); BLOOD UREA NITROGEN 100.6 mg/dL (7-18); CO2 24 mmol/L (21-32); GLUCOSE,RANDOM 138 mg/dL (74-106)
[2021-03-01] MEDS: CALCITRIOL 0.25 MCG CAPSULE (FP) PO SCH (11:08)
[2021-03-01 11:11] LABS: CHOLESTEROL 132 mg/dL (50-200); CREATININE 5.9 mg/dL (0.55-1.3); TRIGLYCERIDES 167 mg/dL (0-150)
[2021-03-01 11:12] LABS: LDL CHOLESTEROL (ONLY SJRH) 56 mg/dL (5-100)
[2021-03-01 11:14] LABS: HDL CHOLESTEROL 42 mg/dL (40-60)
[2021-03-01] MEDS ORDERED: ALPRAZolam 1 MG TABLET PO PRN (17:30)
[2021-03-01] MEDS ORDERED: clonazePAM 0.5 MG TABLET PO PRN (17:33)
[2021-03-01] MEDS ORDERED: DOCUSATE SODIUM 100 MG CAPSULE (FP) PO PRN (17:35)
[2021-03-01] MEDS ORDERED: oxyCODONE HCL 5 MG TABLET PO PRN (17:35)
[2021-03-01] MEDS ORDERED: ALPRAZolam 0.25 MG TABLET PO ONE (19:00)
[2021-03-01] MEDS ORDERED: ALPRAZolam 0.25 MG TABLET ONE (19:14)
[2021-03-01] MEDS: oxyCODONE HCL 5 MG TABLET PO PRN (19:20)
[2021-03-01] MEDS ORDERED: QUEtiapine FUMARATE 100 MG TABLET (FP) ONE (21:52)
[2021-03-01] MEDS ORDERED: MELATONIN 5 MG TABLETS ONE (21:52)
[2021-03-01] MEDS: MELATONIN 5 MG TABLETS PO SCH (21:54)
[2021-03-01 22:18] LABS: EPI CELLS 16 /uL (0-25.1); HYALINE CASTS 1 /uL (0-3.1); URINE APPEARANCE CLOUDY; URINE BACTERIA 1590 /uL (0-1359); URINE BILIRUBIN NEGATIVE (NEGATIVE); URINE COLOR YELLOW; URINE GLUCOSE (UA) TRACE (NEGATIVE); URINE KETONE NEGATIVE (NEGATIVE); URINE LEUK ESTERASE 3+ (NEGATIVE); URINE NITRITE NEGATIVE (NEGATIVE); URINE PROTEIN 2+ (NEGATIVE); URINE RBC 32 /uL (0-23.9); URINE UROBILINOGEN 0.2 mg/dL (0.2-1.0); URINE WBC 855 /uL (0-25.8)
[2021-03-01] MEDS: clonazePAM 0.5 MG TABLET PO PRN (22:38)
[2021-03-02] MEDS: DULoxetine HCL 20 MG CAPSULE.DR PO SCH (09:19)
[2021-03-02] MEDS: CALCITRIOL 0.25 MCG CAPSULE (FP) PO SCH (09:19)
[2021-03-02] MEDS: FERROUS SO4 325 MG TABLET (FP) PO SCH (09:19)
[2021-03-02] MEDS: oxyCODONE HCL 5 MG TABLET PO PRN ×2 (09:20→21:12)
[2021-03-02] MEDS: clonazePAM 0.5 MG TABLET PO PRN ×2 (09:20→21:12)
[2021-03-02] MEDS: SODIUM BICARBONATE 650 MG TABLET PO SCH ×2 (09:21→21:12)
[2021-03-02] MEDS: QUEtiapine FUMARATE 100 MG TABLET (FP) PO SCH ×2 (09:25→21:12)
[2021-03-02] MEDS: QUEtiapine FUMARATE 200 MG TABLET PO SCH (09:25)
[2021-03-02] MEDS: SODIUM ZIRCONIUM CYCLOSILICATE (LOKELMA) 5 GM PACKET PO SCH (09:32)
[2021-03-02] MEDS ORDERED: FUROSEMIDE 40 MG TABLET (FP) PO ONE (13:26)
[2021-03-02] MEDS ORDERED: SODIUM ZIRCONIUM CYCLOSILICATE (LOKELMA) 5 GM PACKET PO ONE (18:00)
[2021-03-02] MEDS: MELATONIN 5 MG TABLETS PO SCH (21:12)
[2021-03-03 07:54] LABS: MAGNESIUM 2.8 mg/dL (1.8-2.4)
[2021-03-03 07:55] LABS: ALBUMIN 3.2 g/dl (3.4-5.0); BLOOD UREA NITROGEN 92.6 mg/dL (7-18); CALCIUM 8.9 mg/dL (8.5-10.1)
[2021-03-03 07:56] LABS: CREATININE 5.6 mg/dL (0.55-1.3)
[2021-03-03 07:58] LABS: BASO % 0.4 % (0-2.0); EOS % 5.6 % (0-4.5); HEMATOCRIT 25.6 % (32.4-45.2); HEMOGLOBIN 8.6 GM/dL (10.7-15.3); LYMPH % 20.8 % (8-40); MCH 30.6 pg (25.7-33.7); MCHC 33.5 g/dl (32.0-36.0); MEAN CELL VOLUME 91.4 fl (80-96); MEAN PLT VOLUME 8.3 fl (7.5-11.1); MONO % 7.8 % (3.8-10.2); NEUT % 65.4 % (42.8-82.8); PLATELET COUNT 134 10^3/uL (134-434); RDW 15.3 % (11.6-15.6); WHITE BLOOD COUNT 8.8 K/mm3 (4.0-10.0)
[2021-03-03 07:59] LABS: BILIRUBIN,TOTAL 0.4 mg/dL (0.2-1); TOT PROT 6.8 g/dl (6.4-8.2)
[2021-03-03] MEDS: QUEtiapine FUMARATE 100 MG TABLET (FP) PO SCH ×2 (09:21→21:53)
[2021-03-03] MEDS: FERROUS SO4 325 MG TABLET (FP) PO SCH (09:21)
[2021-03-03] MEDS: SODIUM BICARBONATE 650 MG TABLET PO SCH ×2 (09:21→21:53)
[2021-03-03] MEDS: DULoxetine HCL 20 MG CAPSULE.DR PO SCH (09:21)
[2021-03-03] MEDS: SODIUM ZIRCONIUM CYCLOSILICATE (LOKELMA) 5 GM PACKET PO SCH (09:21)
[2021-03-03] MEDS: CALCITRIOL 0.25 MCG CAPSULE (FP) PO SCH (09:21)
[2021-03-03] MEDS: ALPRAZolam 0.25 MG TABLET PO PRN ×2 (09:26→22:42)
[2021-03-03] MEDS: MELATONIN 5 MG TABLETS PO SCH (21:53)
[2021-03-03] MEDS: oxyCODONE HCL 5 MG TABLET PO PRN (21:53)
[2021-03-04] MEDS ORDERED: SODIUM CHLORIDE 250 ML IV PRN (11:16)
[2021-03-04 12:09] LABS: BASO % 0.5 % (0-2.0); EOS % 4.8 % (0-4.5); HEMATOCRIT 30.1 % (32.4-45.2); HEMOGLOBIN 9.8 GM/dL (10.7-15.3); MCH 30.4 pg (25.7-33.7); MCHC 32.7 g/dl (32.0-36.0); MEAN CELL VOLUME 92.9 fl (80-96); MEAN PLT VOLUME 8.9 fl (7.5-11.1); MONO % 6.1 % (3.8-10.2); NEUT % 75.6 % (42.8-82.8); PLATELET COUNT 169 10^3/uL (134-434); RBC 3.24 M/mm3 (3.60-5.2); RDW 15.1 % (11.6-15.6); WHITE BLOOD COUNT 8.8 K/mm3 (4.0-10.0)
[2021-03-04 12:26] LABS: ALBUMIN 3.7 g/dl (3.4-5.0); CALCIUM 9.9 mg/dL (8.5-10.1)
[2021-03-04 12:28] LABS: BLOOD UREA NITROGEN 93.8 mg/dL (7-18)
[2021-03-04 12:29] LABS: CREATININE 5.8 mg/dL (0.55-1.3)
[2021-03-04 12:32] LABS: BILIRUBIN,TOTAL 0.4 mg/dL (0.2-1); TOT PROT 7.8 g/dl (6.4-8.2)
[2021-03-04] MEDS: oxyCODONE HCL 5 MG TABLET PO PRN ×2 (12:47→22:53)
[2021-03-04] MEDS: ALPRAZolam 0.25 MG TABLET PO PRN ×2 (12:48→23:26)
[2021-03-04] MEDS: CALCITRIOL 0.25 MCG CAPSULE (FP) PO SCH (12:49)
[2021-03-04] MEDS: DULoxetine HCL 20 MG CAPSULE.DR PO SCH (12:49)
[2021-03-04] MEDS: FERROUS SO4 325 MG TABLET (FP) PO SCH (12:50)
[2021-03-04] MEDS: QUEtiapine FUMARATE 100 MG TABLET (FP) PO SCH ×2 (12:50→22:23)
[2021-03-04] MEDS: SODIUM BICARBONATE 650 MG TABLET PO SCH ×2 (12:50→22:23)
[2021-03-04] MEDS: SODIUM ZIRCONIUM CYCLOSILICATE (LOKELMA) 5 GM PACKET PO SCH (12:51)
[2021-03-04] MEDS ORDERED: ONDANSETRON 4 MG/2 ML VIAL IVPUSH PRN ×2 (14:07→16:40)
[2021-03-04] MEDS ORDERED: PROMETHAZINE HCL 25 MG/1 ML VIAL IVPUSH PRN ×2 (14:07→16:40)
[2021-03-04] MEDS ORDERED: SODIUM CHLORIDE 1,000 ML IV SCH (14:15)
[2021-03-04] MEDS ORDERED: PROPOFOL 20 ML ONE ×2 (14:28)
[2021-03-04] MEDS ORDERED: GLYCOPYRROLATE 0.2 MG/1 ML VIAL ONE (14:28)
[2021-03-04] MEDS ORDERED: LIDOCAINE HCL/PF 2% SDV 5ML VIAL ONE (14:28)
[2021-03-04] MEDS ORDERED: KETAMINE HCL 200 MG/20 ML VIAL ONE (14:28)
[2021-03-04] MEDS ORDERED: LIDOCAINE HCL 1%, 10 MG/ML (20ML VIAL) ONE (14:34)
[2021-03-04] MEDS ORDERED: HEPARIN NA (PORCINE) 5,000 UNITS/ML 1ML VIAL ONE (14:34)
[2021-03-04] MEDS ORDERED: ceFAZolin SODIUM 1 GM VIAL ONE (15:09)
[2021-03-04] MEDS ORDERED: ePHEDrine SULFATE 50 MG/1 ML AMPULE ONE (15:10)
[2021-03-04] MEDS ORDERED: ceFAZolin 2 GRAM PREMIX BAG IVPB ONE (15:26)
[2021-03-04] MEDS ORDERED: LIDOCAINE HCL 1%, 10 MG/ML (20ML VIAL) INF ONE ×2 (15:26)
[2021-03-04] MEDS ORDERED: HEPARIN NA (PORCINE) 5,000 UNITS/ML 1ML VIAL SQ ONE ×3 (15:26→15:33)
[2021-03-04] MEDS ORDERED: ESMOLOL HCL 100,000 MCG/10 ML VIAL ONE (15:27)
[2021-03-04] MEDS ORDERED: DOCUSATE SODIUM 100 MG CAPSULE (FP) PO PRN (16:40)
[2021-03-04] MEDS ORDERED: ALBUTEROL SO4 2.5/IPRATROPIUM 0.5 INH SOL 3 ML VIAL.NEB. NEB PRN (16:40)
[2021-03-04] MEDS: SODIUM CHLORIDE 1,000 ML IV SCH (18:27)
[2021-03-04] MEDS: MELATONIN 5 MG TABLETS PO SCH (22:23)
[2021-03-05 08:55] LABS: BASO % 0.3 % (0-2.0); EOS % 4.8 % (0-4.5); HEMATOCRIT 25.3 % (32.4-45.2); HEMOGLOBIN 8.3 GM/dL (10.7-15.3); LYMPH % 14.7 % (8-40); MCH 30.4 pg (25.7-33.7); MCHC 32.9 g/dl (32.0-36.0); MEAN CELL VOLUME 92.6 fl (80-96); MEAN PLT VOLUME 8.6 fl (7.5-11.1); NEUT % 72.2 % (42.8-82.8); PLATELET COUNT 123 10^3/uL (134-434); RBC 2.73 M/mm3 (3.60-5.2); RDW 15.1 % (11.6-15.6); WHITE BLOOD COUNT 8.1 K/mm3 (4.0-10.0)
[2021-03-05 09:41] LABS: ALBUMIN 3.2 g/dl (3.4-5.0)
[2021-03-05 09:42] LABS: CALCIUM 8.6 mg/dL (8.5-10.1)
[2021-03-05 09:43] LABS: BLOOD UREA NITROGEN 93.3 mg/dL (7-18)
[2021-03-05 09:46] LABS: CREATININE 5.8 mg/dL (0.55-1.3); TOT PROT 6.7 g/dl (6.4-8.2)
[2021-03-05 09:47] LABS: BILIRUBIN,TOTAL 0.3 mg/dL (0.2-1)
[2021-03-05] MEDS ORDERED: SODIUM ZIRCONIUM CYCLOSILICATE (LOKELMA) 5 GM PACKET PO SCH (10:00)
[2021-03-05] MEDS: QUEtiapine FUMARATE 100 MG TABLET (FP) PO SCH ×2 (10:30→21:08)
[2021-03-05] MEDS ORDERED: ALPRAZolam 1 MG TABLET PO ONE (10:58)
[2021-03-05] MEDS ORDERED: SODIUM CHLORIDE 250 ML IV PRN (16:40)
[2021-03-05] MEDS: oxyCODONE HCL 5 MG TABLET PO PRN (16:47)
[2021-03-05] MEDS: CALCITRIOL 0.25 MCG CAPSULE (FP) PO SCH (16:50)
[2021-03-05] MEDS: FERROUS SO4 325 MG TABLET (FP) PO SCH (16:50)
[2021-03-05] MEDS: DULoxetine HCL 20 MG CAPSULE.DR PO SCH (16:51)
[2021-03-05] MEDS: SODIUM CHLORIDE 1,000 ML IV SCH (16:53)
[2021-03-05] MEDS: SODIUM BICARBONATE 650 MG TABLET PO SCH (16:53)
[2021-03-05] MEDS: MELATONIN 5 MG TABLETS PO SCH (21:08)
[2021-03-05] MEDS: ALPRAZolam 0.25 MG TABLET PO PRN (22:40)
[2021-03-06] MEDS: FERROUS SO4 325 MG TABLET (FP) PO SCH (11:38)
[2021-03-06] MEDS: oxyCODONE HCL 5 MG TABLET PO PRN ×2 (11:38→18:44)
[2021-03-06] MEDS: CALCITRIOL 0.25 MCG CAPSULE (FP) PO SCH (11:38)
[2021-03-06] MEDS: QUEtiapine FUMARATE 100 MG TABLET (FP) PO SCH ×2 (11:38→21:19)
[2021-03-06] MEDS: DULoxetine HCL 20 MG CAPSULE.DR PO SCH (11:38)
[2021-03-06] MEDS: ALPRAZolam 0.25 MG TABLET PO PRN ×2 (11:45→20:36)
[2021-03-06 12:20] LABS: BASO % 0.4 % (0-2.0); EOS % 5.8 % (0-4.5); HEMATOCRIT 25.2 % (32.4-45.2); HEMOGLOBIN 8.4 GM/dL (10.7-15.3); LYMPH % 16.4 % (8-40); MCH 30.5 pg (25.7-33.7); MCHC 33.3 g/dl (32.0-36.0); MEAN CELL VOLUME 91.7 fl (80-96); MEAN PLT VOLUME 8.4 fl (7.5-11.1); MONO % 8.5 % (3.8-10.2); NEUT % 68.9 % (42.8-82.8); PLATELET COUNT 117 10^3/uL (134-434); RBC 2.75 M/mm3 (3.60-5.2); WHITE BLOOD COUNT 7.6 K/mm3 (4.0-10.0)
[2021-03-06 12:50] LABS: ALBUMIN 3.1 g/dl (3.4-5.0); CALCIUM 8.7 mg/dL (8.5-10.1)
[2021-03-06 12:52] LABS: CREATININE 4.2 mg/dL (0.55-1.3)
[2021-03-06 12:54] LABS: TOT PROT 6.6 g/dl (6.4-8.2)
[2021-03-06 12:55] LABS: BILIRUBIN,TOTAL 1.3 mg/dL (0.2-1)
[2021-03-06 13:11] LABS: BLOOD UREA NITROGEN 57.6 mg/dL (7-18)
[2021-03-06] MEDS ORDERED: SODIUM CHLORIDE 250 ML IV PRN (15:29)
[2021-03-06] MEDS ORDERED: HEPARIN NA (PORCINE) 5,000 UNITS/ML 1ML VIAL IVPUSH ONE (15:30)
[2021-03-06] MEDS ORDERED: EPOETIN ALFA-EPBX 4,000 UNIT/ML VIAL SQ ONE (15:30)
[2021-03-06] MEDS: MELATONIN 5 MG TABLETS PO SCH (21:19)
[2021-03-07 09:15] LABS: BASO % 0.5 % (0-2.0); EOS % 5.8 % (0-4.5); HEMATOCRIT 27.3 % (32.4-45.2); MCH 30.6 pg (25.7-33.7); MCHC 32.8 g/dl (32.0-36.0); MEAN CELL VOLUME 93.4 fl (80-96); MEAN PLT VOLUME 8.8 fl (7.5-11.1); MONO % 8.3 % (3.8-10.2); NEUT % 62.4 % (42.8-82.8); PLATELET COUNT 123 10^3/uL (134-434); RBC 2.92 M/mm3 (3.60-5.2); RDW 15.3 % (11.6-15.6); WHITE BLOOD COUNT 9.4 K/mm3 (4.0-10.0)
[2021-03-07] MEDS: FERROUS SO4 325 MG TABLET (FP) PO SCH (09:50)
[2021-03-07] MEDS: QUEtiapine FUMARATE 100 MG TABLET (FP) PO SCH ×2 (09:50→21:13)
[2021-03-07] MEDS: DULoxetine HCL 20 MG CAPSULE.DR PO SCH (09:50)
[2021-03-07] MEDS: CALCITRIOL 0.25 MCG CAPSULE (FP) PO SCH (09:50)
[2021-03-07 09:56] LABS: BILIRUBIN,TOTAL 0.3 mg/dL (0.2-1); BLOOD UREA NITROGEN 48.4 mg/dL (7-18); TOT PROT 7.4 g/dl (6.4-8.2)
[2021-03-07 09:57] LABS: ALBUMIN 3.4 g/dl (3.4-5.0)
[2021-03-07] MEDS: ALPRAZolam 0.25 MG TABLET PO PRN ×2 (09:57→21:13)
[2021-03-07 09:59] LABS: CALCIUM 8.9 mg/dL (8.5-10.1); CREATININE 3.7 mg/dL (0.55-1.3)
[2021-03-07] MEDS: oxyCODONE HCL 5 MG TABLET PO PRN ×2 (11:46→16:58)
[2021-03-07] MEDS: MELATONIN 5 MG TABLETS PO SCH (21:13)
[2021-03-08] MEDS: QUEtiapine FUMARATE 100 MG TABLET (FP) PO SCH ×2 (09:20→20:59)
[2021-03-08] MEDS: ALPRAZolam 0.25 MG TABLET PO PRN ×2 (09:20→20:58)
[2021-03-08] MEDS: FERROUS SO4 325 MG TABLET (FP) PO SCH (09:20)
[2021-03-08] MEDS: oxyCODONE HCL 5 MG TABLET PO PRN ×2 (09:20→15:56)
[2021-03-08] MEDS: DULoxetine HCL 20 MG CAPSULE.DR PO SCH (09:22)
[2021-03-08] MEDS: CALCITRIOL 0.25 MCG CAPSULE (FP) PO SCH (09:22)
[2021-03-08 11:50] LABS: HEMATOCRIT 28.7 % (32.4-45.2); HEMOGLOBIN 9.3 GM/dL (10.7-15.3); MCH 30.5 pg (25.7-33.7); MCHC 32.6 g/dl (32.0-36.0); MEAN CELL VOLUME 93.4 fl (80-96); MEAN PLT VOLUME 9.1 fl (7.5-11.1); PLATELET COUNT 123 10^3/uL (134-434); RBC 3.07 M/mm3 (3.60-5.2); WHITE BLOOD COUNT 8.7 K/mm3 (4.0-10.0)
[2021-03-08 12:11] LABS: CALCIUM 9.2 mg/dL (8.5-10.1)
[2021-03-08 12:12] LABS: ALBUMIN 3.3 g/dl (3.4-5.0); BLOOD UREA NITROGEN 67.6 mg/dL (7-18)
[2021-03-08 12:16] LABS: BILIRUBIN,TOTAL 0.3 mg/dL (0.2-1)
[2021-03-08 12:17] LABS: TOT PROT 7.4 g/dl (6.4-8.2)
[2021-03-08] MEDS: MELATONIN 5 MG TABLETS PO SCH (20:59)
[2021-03-09] MEDS ORDERED: SODIUM CHLORIDE 250 ML IV PRN (09:10)
[2021-03-09] MEDS: ALPRAZolam 0.25 MG TABLET PO PRN ×2 (09:14→20:34)
[2021-03-09] MEDS: QUEtiapine FUMARATE 100 MG TABLET (FP) PO SCH ×2 (09:14→21:05)
[2021-03-09] MEDS: FERROUS SO4 325 MG TABLET (FP) PO SCH (09:14)
[2021-03-09] MEDS: oxyCODONE HCL 5 MG TABLET PO PRN ×3 (09:14→18:14)
[2021-03-09] MEDS: DULoxetine HCL 20 MG CAPSULE.DR PO SCH (09:16)
[2021-03-09] MEDS: CALCITRIOL 0.25 MCG CAPSULE (FP) PO SCH (09:17)
[2021-03-09] MEDS ORDERED: EPOETIN ALFA-EPBX 4,000 UNIT/ML VIAL IVPUSH ONE (10:15)
[2021-03-09] MEDS: MELATONIN 5 MG TABLETS PO SCH (21:05)
[2021-03-10] MEDS: QUEtiapine FUMARATE 100 MG TABLET (FP) PO SCH ×2 (10:51→21:05)
[2021-03-10] MEDS: FERROUS SO4 325 MG TABLET (FP) PO SCH (10:52)
[2021-03-10] MEDS: DULoxetine HCL 20 MG CAPSULE.DR PO SCH (10:52)
[2021-03-10] MEDS: CALCITRIOL 0.25 MCG CAPSULE (FP) PO SCH (10:53)
[2021-03-10] MEDS: ALPRAZolam 0.25 MG TABLET PO PRN (10:53)
[2021-03-10] MEDS: oxyCODONE HCL 5 MG TABLET PO PRN ×2 (11:15→16:24)
[2021-03-10 16:29] VITALS: BMI 26.6
[2021-03-10] MEDS: MELATONIN 5 MG TABLETS PO SCH (21:05)
[2021-03-10] MEDS: ALPRAZolam 0.25 MG TABLET PO SCH (21:06)
[2021-03-11] MEDS ORDERED: SODIUM CHLORIDE 250 ML IV PRN (07:00)
[2021-03-11] MEDS ORDERED: EPOETIN ALFA-EPBX 4,000 UNIT/ML VIAL SQ ONE (07:00)
[2021-03-11] MEDS: CALCITRIOL 0.25 MCG CAPSULE (FP) PO SCH (09:06)
[2021-03-11] MEDS: ALPRAZolam 0.25 MG TABLET PO SCH (09:06)
[2021-03-11] MEDS: QUEtiapine FUMARATE 100 MG TABLET (FP) PO SCH (09:06)
[2021-03-11] MEDS: FERROUS SO4 325 MG TABLET (FP) PO SCH (09:06)
[2021-03-11] MEDS: DULoxetine HCL 20 MG CAPSULE.DR PO SCH (09:07)
[2021-03-11] MEDS: oxyCODONE HCL 5 MG TABLET PO PRN (09:21)
[2021-03-11 10:41] LABS: BASO % 0.4 % (0-2.0); EOS % 6.4 % (0-4.5); HEMATOCRIT 24.3 % (32.4-45.2); HEMOGLOBIN 8.2 GM/dL (10.7-15.3); LYMPH % 18.4 % (8-40); MCH 30.9 pg (25.7-33.7); MCHC 33.5 g/dl (32.0-36.0); MEAN CELL VOLUME 92.3 fl (80-96); MEAN PLT VOLUME 8.6 fl (7.5-11.1); MONO % 8.8 % (3.8-10.2); PLATELET COUNT 126 10^3/uL (134-434); RBC 2.64 M/mm3 (3.60-5.2); RDW 14.6 % (11.6-15.6); WHITE BLOOD COUNT 8.5 K/mm3 (4.0-10.0)
[2021-03-11 10:58] LABS: CALCIUM 9.3 mg/dL (8.5-10.1)
[2021-03-11 10:59] LABS: ALBUMIN 3.1 g/dl (3.4-5.0); BLOOD UREA NITROGEN 53.6 mg/dL (7-18); MAGNESIUM 2.2 mg/dL (1.8-2.4)
[2021-03-11 11:02] LABS: CREATININE 3.8 mg/dL (0.55-1.3)
[2021-03-11 11:03] LABS: BILIRUBIN,TOTAL 0.3 mg/dL (0.2-1); TOT PROT 6.8 g/dl (6.4-8.2)
[2021-03-11 15:31] VITALS: BP 96/53; PULSE 90; TEMP 98.3
== END 2021-03-11 17:30 | DRG 682 ==
LOC: JER 22:16 → JERBED 03-01 01:13 → J4W 03-01 22:21 → OBSVTOIN 03-03 08:47 → J5S 03-03 16:14
PROVIDERS: ADMIT Internal Medicine; ATTEND Family Medicine
PROC: 30233N1 Transfusion of Nonautologous Red Blood Cells into Peripheral Vein, Percutaneous Approach (ICD-10-PCS; principal; 2021-03-01)
PROC: 5A1D70Z Performance of Urinary Filtration, Intermittent, Less than 6 Hours Per Day (ICD-10-PCS; 2021-03-01)
PROC: 5A1D70Z Performance of Urinary Filtration, Intermittent, Less than 6 Hours Per Day (ICD-10-PCS; 2021-03-01)
PROC: 5A1D70Z Performance of Urinary Filtration, Intermittent, Less than 6 Hours Per Day (ICD-10-PCS; 2021-03-01)
PROC: 5A1D70Z Performance of Urinary Filtration, Intermittent, Less than 6 Hours Per Day (ICD-10-PCS; 2021-03-01)
PROC: 05H533Z Insertion of Infusion Device into Right Subclavian Vein, Percutaneous Approach (ICD-10-PCS; 2021-03-01)
PROC: B546ZZA Ultrasonography of Right Subclavian Vein, Guidance (ICD-10-PCS; 2021-03-04)
DX: I12.0 Hypertensive chronic kidney disease with stage 5 chronic kidney disease or end stage renal disease (principal); N18.6 End stage renal disease; K92.2 Gastrointestinal hemorrhage, unspecified; N17.9 Acute kidney failure, unspecified; J44.9 Chronic obstructive pulmonary disease, unspecified; N13.9 Obstructive and reflux uropathy, unspecified; F41.8 Other specified anxiety disorders; K21.9 Gastro-esophageal reflux disease without esophagitis; K44.9 Diaphragmatic hernia without obstruction or gangrene; F25.9 Schizoaffective disorder, unspecified; M54.50 Low back pain, unspecified; E87.5 Hyperkalemia; E11.22 Type 2 diabetes mellitus with diabetic chronic kidney disease; R50.9 Fever, unspecified; Z99.2 Dependence on renal dialysis
CPT/HCPCS: 36415; 36430; 71045-TC-FY; 76775-TC; 80048; 80053; 80061; 81003; 82272; 82550; 82962; 83540; 83550; 83605; 83690; 83735; 84443; 84484; 85025; 85027; 85610; 85730; 86705; 86803; 86850; 86900; 86901; 86922; 87340; 87517; 87804; 93005; 93010; 94760; 99285-25; C9803; G0378; J1644; P9058; Q5106; U0003; U0005

== ENCOUNTER 2021-03-25 13:10 | Inpatient (IN) | payer OTHER ==
[2021-03-25 13:36] VITALS: BMI 26.4
[2021-03-25 15:19] LABS: BASO % 0.5 % (0-2.0); HEMATOCRIT 26.5 % (32.4-45.2); HEMOGLOBIN 8.8 GM/dL (10.7-15.3); LYMPH % 21.1 % (8-40); MCH 30.8 pg (25.7-33.7); MCHC 33.2 g/dl (32.0-36.0); MEAN CELL VOLUME 92.9 fl (80-96); MEAN PLT VOLUME 8.6 fl (7.5-11.1); MONO % 6.8 % (3.8-10.2); NEUT % 62.6 % (42.8-82.8); PLATELET COUNT 185 10^3/uL (134-434); RBC 2.85 M/mm3 (3.60-5.2); RDW 13.7 % (11.6-15.6); WHITE BLOOD COUNT 6.9 K/mm3 (4.0-10.0)
[2021-03-25 15:29] LABS: INR 1.04 (0.83-1.09)
[2021-03-25 15:31] LABS: ACTIVATED PTT 58.1 SECONDS (25.2-36.5)
[2021-03-25] MEDS ORDERED: oxyCODONE HCL 5 MG TABLET PO ONE (15:31)
[2021-03-25] MEDS ORDERED: oxyCODONE HCL 5 MG TABLET ONE (15:48)
[2021-03-25 15:50] LABS: CHLORIDE 102 mmol/L (98-107); SODIUM 136 mmol/L (136-145)
[2021-03-25 15:52] LABS: CALCIUM 10.8 mg/dL (8.5-10.1)
[2021-03-25 15:53] LABS: ALBUMIN 3.8 g/dl (3.4-5.0); ANION GAP 4 MMOL/L (8-16); BLOOD UREA NITROGEN 82.8 mg/dL (7-18); CO2 31 mmol/L (21-32); GLUCOSE,RANDOM 103 mg/dL (74-106)
[2021-03-25 15:56] LABS: PHOSPHOROUS 6.1 mg/dL (2.5-4.9); SGOT/AST 18 U/L (15-37); SGPT/ALT 16 U/L (13-61)
[2021-03-25 15:57] LABS: BILIRUBIN,TOTAL 0.4 mg/dL (0.2-1)
[2021-03-25 15:59] LABS: ALK PHOS 95 U/L (45-117)
[2021-03-25 17:06] LABS: CREATININE 7.5 mg/dL (0.55-1.3)
[2021-03-25] MEDS ORDERED: DIPHTH,PERTUSS(ACELL),TET 0.5 ML DISP.SYRIN IM ONE ×2 (17:07→18:38)
[2021-03-25 17:51] LABS: EPI CELLS >36 /uL (0-25.1); HYALINE CASTS 5 /uL (0-3.1); PH,URINE 7.5 (5.0-8.0); URINE APPEARANCE TURBID; URINE BACTERIA 2091 /uL (0-1359); URINE BILIRUBIN NEGATIVE (NEGATIVE); URINE COLOR YELLOW; URINE GLUCOSE (UA) NEGATIVE (NEGATIVE); URINE KETONE NEGATIVE (NEGATIVE); URINE LEUK ESTERASE 3+ (NEGATIVE); URINE NITRITE POSITIVE (NEGATIVE); URINE PROTEIN 2+ (NEGATIVE); URINE RBC 91 /uL (0-23.9); URINE UROBILINOGEN 0.2 mg/dL (0.2-1.0); URINE WBC 8226 /uL (0-25.8)
[2021-03-25] MEDS ORDERED: POLYETHYLENE GLYCOL (HEALTHYLAX) 3350 17 GM PACKET PO PRN (18:02)
[2021-03-25] MEDS ORDERED: CEFTRIAXONE 1 GM/50 ML BAG ONE (18:38)
[2021-03-25] MEDS: CEFTRIAXONE 1 GM in DEXTROSE 5%-WATER - 50 ML IVPB SCH (18:52)
[2021-03-25 22:22] LABS: YEAST NONE SEEN (NEGATIVE)
[2021-03-25] MEDS: HEPARIN NA (PORCINE) 5,000 UNITS/ML 1ML VIAL SQ SCH (22:58)
[2021-03-25] MEDS: MELATONIN 5 MG TABLETS PO SCH (22:58)
[2021-03-25] MEDS: ATORVASTATIN CA 10 MG TABLET (FP) PO SCH (22:58)
[2021-03-25] MEDS: QUEtiapine FUMARATE 100 MG TABLET (FP) PO SCH (22:59)
[2021-03-25] MEDS ORDERED: QUEtiapine FUMARATE 100 MG TABLET (FP) ONE (23:12)
[2021-03-25] MEDS ORDERED: ATORVASTATIN CA 10 MG TABLET (FP) ONE (23:12)
[2021-03-25] MEDS ORDERED: MELATONIN 5 MG TABLETS ONE (23:12)
[2021-03-25] MEDS ORDERED: HEPARIN NA (PORCINE) 5,000 UNITS/ML 1ML VIAL ONE (23:12)
[2021-03-26] MEDS: SODIUM BICARBONATE 650 MG TABLET PO SCH ×3 (04:42→23:14)
[2021-03-26] MEDS: HEPARIN NA (PORCINE) 5,000 UNITS/ML 1ML VIAL SQ SCH ×3 (05:01→23:14)
[2021-03-26 09:05] LABS: BASO % 0.6 % (0-2.0); EOS % 9.1 % (0-4.5); HEMATOCRIT 27.3 % (32.4-45.2); HEMOGLOBIN 9.2 GM/dL (10.7-15.3); LYMPH % 26.9 % (8-40); MCH 31.7 pg (25.7-33.7); MCHC 33.8 g/dl (32.0-36.0); MEAN CELL VOLUME 93.8 fl (80-96); MEAN PLT VOLUME 8.4 fl (7.5-11.1); MONO % 7.6 % (3.8-10.2); NEUT % 55.8 % (42.8-82.8); PLATELET COUNT 159 10^3/uL (134-434); RBC 2.91 M/mm3 (3.60-5.2); WHITE BLOOD COUNT 6.2 K/mm3 (4.0-10.0)
[2021-03-26 09:55] LABS: IRON SERUM 78 ug/dL (50-175); TOTAL IRON BINDING CAPACITY 272 ug/dL (250-450)
[2021-03-26] MEDS: CALCITRIOL 0.25 MCG CAPSULE (FP) PO SCH (10:19)
[2021-03-26] MEDS: QUEtiapine FUMARATE 100 MG TABLET (FP) PO SCH ×2 (10:19→23:14)
[2021-03-26] MEDS: DULoxetine HCL 20 MG CAPSULE.DR PO SCH (10:19)
[2021-03-26] MEDS: POLYETHYLENE GLYCOL (HEALTHYLAX) 3350 17 GM PACKET PO SCH ×2 (10:19→23:15)
[2021-03-26 10:46] LABS: ALBUMIN 3.8 g/dl (3.4-5.0); BILIRUBIN,TOTAL 0.4 mg/dL (0.2-1); BLOOD UREA NITROGEN 79.2 mg/dL (7-18); CALCIUM 11.4 mg/dL (8.5-10.1); CREATININE 7.4 mg/dL (0.55-1.3); PHOSPHOROUS 6.3 mg/dL (2.5-4.9); TOT PROT 7.8 g/dl (6.4-8.2)
[2021-03-26] MEDS ORDERED: EPOETIN ALFA-EPBX 10,000 UNIT/ML VIAL IVPUSH ONE (12:00)
[2021-03-26] MEDS ORDERED: SODIUM CHLORIDE 250 ML IV PRN (12:00)
[2021-03-26] MEDS ORDERED: cefTRIAXone SODIUM 1 GM VIAL ONE (14:11)
[2021-03-26] MEDS ORDERED: DEXTROSE 5%-WATER - 50 ML IVPB ONE (14:11)
[2021-03-26] MEDS: CEFTRIAXONE 1 GM in DEXTROSE 5%-WATER - 50 ML IVPB SCH (14:35)
[2021-03-26] MEDS: LORazepam 2 MG/ML SDV VIAL IVPUSH PRN (14:57)
[2021-03-26] MEDS: MELATONIN 5 MG TABLETS PO SCH (23:14)
[2021-03-26] MEDS: ATORVASTATIN CA 10 MG TABLET (FP) PO SCH (23:14)
[2021-03-27] MEDS: LORazepam 2 MG/ML SDV VIAL IVPUSH PRN (01:52)
[2021-03-27] MEDS: HEPARIN NA (PORCINE) 5,000 UNITS/ML 1ML VIAL SQ SCH ×2 (05:43→15:43)
[2021-03-27] MEDS ORDERED: cefTRIAXone SODIUM 1 GM VIAL ONE (09:21)
[2021-03-27] MEDS ORDERED: DEXTROSE 5%-WATER - 50 ML IVPB ONE (09:21)
[2021-03-27] MEDS: CEFTRIAXONE 1 GM in DEXTROSE 5%-WATER - 50 ML IVPB SCH (09:56)
[2021-03-27] MEDS: DULoxetine HCL 20 MG CAPSULE.DR PO SCH (09:56)
[2021-03-27] MEDS: QUEtiapine FUMARATE 100 MG TABLET (FP) PO SCH (09:56)
[2021-03-27] MEDS: POLYETHYLENE GLYCOL (HEALTHYLAX) 3350 17 GM PACKET PO SCH (09:56)
[2021-03-27] MEDS: CALCITRIOL 0.25 MCG CAPSULE (FP) PO SCH (09:56)
[2021-03-27] MEDS: SODIUM BICARBONATE 650 MG TABLET PO SCH (09:57)
[2021-03-27] MEDS: MINERAL OIL/PET HY-PHL TOPICAL OINTMENT 454 GM JAR TP SCH (17:57)
[2021-03-28] MEDS: QUEtiapine FUMARATE 100 MG TABLET (FP) PO SCH ×3 (03:35→21:03)
[2021-03-28] MEDS: ALPRAZolam 0.25 MG TABLET PO SCH ×3 (03:35→21:03)
[2021-03-28] MEDS: HEPARIN NA (PORCINE) 5,000 UNITS/ML 1ML VIAL SQ SCH ×4 (03:36→21:04)
[2021-03-28] MEDS: ATORVASTATIN CA 10 MG TABLET (FP) PO SCH ×2 (03:36→21:04)
[2021-03-28] MEDS: MELATONIN 5 MG TABLETS PO SCH ×2 (03:36→21:03)
[2021-03-28] MEDS: POLYETHYLENE GLYCOL (HEALTHYLAX) 3350 17 GM PACKET PO SCH ×3 (03:36→21:02)
[2021-03-28] MEDS ORDERED: cefTRIAXone SODIUM 1 GM VIAL ONE (11:23)
[2021-03-28] MEDS ORDERED: DEXTROSE 5%-WATER - 50 ML IVPB ONE (11:23)
[2021-03-28] MEDS: CEFTRIAXONE 1 GM in DEXTROSE 5%-WATER - 50 ML IVPB SCH (12:23)
[2021-03-28] MEDS: DULoxetine HCL 20 MG CAPSULE.DR PO SCH (12:30)
[2021-03-28] MEDS: CALCITRIOL 0.25 MCG CAPSULE (FP) PO SCH (12:30)
[2021-03-28] MEDS ORDERED: SODIUM CHLORIDE 250 ML IV PRN (13:37)
[2021-03-28 13:55] LABS: HEMATOCRIT 25.2 % (32.4-45.2); HEMOGLOBIN 8.3 GM/dL (10.7-15.3); MCH 30.7 pg (25.7-33.7); MCHC 32.8 g/dl (32.0-36.0); MEAN CELL VOLUME 93.6 fl (80-96); PLATELET COUNT 153 10^3/uL (134-434); RBC 2.69 M/mm3 (3.60-5.2); RDW 13.8 % (11.6-15.6); WHITE BLOOD COUNT 6.5 K/mm3 (4.0-10.0)
[2021-03-28] MEDS ORDERED: EPOETIN ALFA-EPBX 10,000 UNIT/ML VIAL SQ ONE (14:00)
[2021-03-28 14:32] LABS: BLOOD UREA NITROGEN 34.9 mg/dL (7-18); CALCIUM 9.4 mg/dL (8.5-10.1)
[2021-03-28] MEDS: MINERAL OIL/PET HY-PHL TOPICAL OINTMENT 454 GM JAR TP SCH (20:01)
[2021-03-28] MEDS: LORazepam 2 MG/ML SDV VIAL IVPUSH PRN (21:05)
[2021-03-29] MEDS: HEPARIN NA (PORCINE) 5,000 UNITS/ML 1ML VIAL SQ SCH ×3 (05:17→21:24)
[2021-03-29] MEDS: MINERAL OIL/PET HY-PHL TOPICAL OINTMENT 454 GM JAR TP SCH (09:01)
[2021-03-29] MEDS: QUEtiapine FUMARATE 100 MG TABLET (FP) PO SCH (09:02)
[2021-03-29] MEDS: DULoxetine HCL 20 MG CAPSULE.DR PO SCH (09:02)
[2021-03-29] MEDS: CALCITRIOL 0.25 MCG CAPSULE (FP) PO SCH (09:02)
[2021-03-29] MEDS: ALPRAZolam 0.25 MG TABLET PO SCH (09:02)
[2021-03-29] MEDS: POLYETHYLENE GLYCOL (HEALTHYLAX) 3350 17 GM PACKET PO SCH ×3 (09:04→21:29)
[2021-03-29] MEDS: LORazepam 2 MG/ML SDV VIAL IVPUSH PRN (18:51)
[2021-03-29] MEDS: ATORVASTATIN CA 10 MG TABLET (FP) PO SCH (21:24)
[2021-03-29] MEDS: MELATONIN 5 MG TABLETS PO SCH (21:24)
[2021-03-29] MEDS ORDERED: QUEtiapine FUMARATE 100 MG TABLET (FP) PO SCH (22:00)
[2021-03-30] MEDS: HEPARIN NA (PORCINE) 5,000 UNITS/ML 1ML VIAL SQ SCH ×3 (06:22→22:24)
[2021-03-30] MEDS: MINERAL OIL/PET HY-PHL TOPICAL OINTMENT 454 GM JAR TP SCH (10:19)
[2021-03-30] MEDS: DULoxetine HCL 20 MG CAPSULE.DR PO SCH (10:19)
[2021-03-30] MEDS: POLYETHYLENE GLYCOL (HEALTHYLAX) 3350 17 GM PACKET PO SCH ×2 (10:19→22:26)
[2021-03-30] MEDS: CALCITRIOL 0.25 MCG CAPSULE (FP) PO SCH (10:19)
[2021-03-30] MEDS: LORazepam 1 MG TABLET PO SCH ×2 (13:38→22:25)
[2021-03-30] MEDS ORDERED: SODIUM CHLORIDE 250 ML IV PRN (14:48)
[2021-03-30] MEDS: ATORVASTATIN CA 10 MG TABLET (FP) PO SCH (22:25)
[2021-03-30] MEDS: MELATONIN 5 MG TABLETS PO SCH (22:25)
[2021-03-30] MEDS: QUEtiapine FUMARATE 100 MG TABLET (FP) PO SCH (22:25)
[2021-03-31] MEDS ORDERED: SODIUM CHLORIDE 250 ML IV PRN (06:44)
[2021-03-31] MEDS: LORazepam 1 MG TABLET PO SCH ×3 (07:55→22:24)
[2021-03-31] MEDS: HEPARIN NA (PORCINE) 5,000 UNITS/ML 1ML VIAL SQ SCH ×3 (07:56→22:25)
[2021-03-31] MEDS ORDERED: EPOETIN ALFA-EPBX 10,000 UNIT/ML VIAL IVPUSH ONE (08:00)
[2021-03-31] MEDS: MINERAL OIL/PET HY-PHL TOPICAL OINTMENT 454 GM JAR TP SCH (09:00)
[2021-03-31] MEDS: POLYETHYLENE GLYCOL (HEALTHYLAX) 3350 17 GM PACKET PO SCH ×2 (12:53→22:26)
[2021-03-31] MEDS: DULoxetine HCL 20 MG CAPSULE.DR PO SCH (12:53)
[2021-03-31] MEDS: QUEtiapine FUMARATE 100 MG TABLET (FP) PO SCH ×2 (12:53→22:25)
[2021-03-31] MEDS: CALCITRIOL 0.25 MCG CAPSULE (FP) PO SCH (12:54)
[2021-03-31 13:11] LABS: SARS-CoV-2 NAA Not Detected (Not Detected)
[2021-03-31] MEDS ORDERED: ACETAMINOPHEN 500 MG TABLET (FP) PO ONE ×2 (17:34→20:21)
[2021-03-31] MEDS: ATORVASTATIN CA 10 MG TABLET (FP) PO SCH (22:24)
[2021-03-31] MEDS: MELATONIN 5 MG TABLETS PO SCH (22:25)
[2021-03-31 23:20] VITALS: PULSE 88
[2021-04-01] MEDS: HEPARIN NA (PORCINE) 5,000 UNITS/ML 1ML VIAL SQ SCH (05:44)
[2021-04-01] MEDS: LORazepam 1 MG TABLET PO SCH ×2 (05:44→09:31)
[2021-04-01 09:26] VITALS: BP 153/69; TEMP 98.5
[2021-04-01] MEDS: CALCITRIOL 0.25 MCG CAPSULE (FP) PO SCH (09:30)
[2021-04-01] MEDS: DULoxetine HCL 20 MG CAPSULE.DR PO SCH (09:30)
[2021-04-01] MEDS: POLYETHYLENE GLYCOL (HEALTHYLAX) 3350 17 GM PACKET PO SCH (09:31)
[2021-04-01] MEDS: QUEtiapine FUMARATE 100 MG TABLET (FP) PO SCH (09:31)
[2021-04-01] MEDS: MINERAL OIL/PET HY-PHL TOPICAL OINTMENT 454 GM JAR TP SCH (09:31)
== END 2021-04-01 10:52 | DRG 91 ==
LOC: JER 13:10 → JERBED 17:09 → J8W 03-26 04:26 → OBSVTOIN 03-26 10:22 → J8W 03-28 17:02
PROVIDERS: ADMIT Internal Medicine; ATTEND Family Medicine
PROC: 5A1D70Z Performance of Urinary Filtration, Intermittent, Less than 6 Hours Per Day (ICD-10-PCS; principal; 2021-03-31)
DX: R29.6 Repeated falls (principal); N18.6 End stage renal disease; N39.0 Urinary tract infection, site not specified; I12.0 Hypertensive chronic kidney disease with stage 5 chronic kidney disease or end stage renal disease; E11.22 Type 2 diabetes mellitus with diabetic chronic kidney disease; F25.9 Schizoaffective disorder, unspecified; T43.95XA Adverse effect of unspecified psychotropic drug, initial encounter; Y92.89 Other specified places as the place of occurrence of the external cause; K21.9 Gastro-esophageal reflux disease without esophagitis; Z99.2 Dependence on renal dialysis
CPT/HCPCS: 36415; 70450-TC; 71045-TC-FY; 72125-TC; 72170-TC-FY; 80048; 80053; 81003; 82962; 83540; 83550; 83735; 84100; 84484; 85025; 85027; 85610; 85730; 86803; 86850; 86900; 86901; 87040; 87086; 87340; 90715; 93005; 93010; 93971-TC; 97116-GP; 97161-GP; 99285-25; C9803; G0378; J1644; Q5106; U0003; U0005

== ENCOUNTER 2021-04-09 18:52 | Inpatient (IN) | payer OTHER ==
[2021-04-09 20:47] LABS: EPI CELLS 11 /uL (0-25.1); HYALINE CASTS 2 /uL (0-3.1); URINE APPEARANCE CLOUDY; URINE BILIRUBIN NEGATIVE (NEGATIVE); URINE COLOR YELLOW; URINE GLUCOSE (UA) TRACE (NEGATIVE); URINE KETONE NEGATIVE (NEGATIVE); URINE LEUK ESTERASE 2+ (NEGATIVE); URINE NITRITE POSITIVE (NEGATIVE); URINE PROTEIN 3+ (NEGATIVE); URINE RBC 23 /uL (0-23.9); URINE UROBILINOGEN 0.2 mg/dL (0.2-1.0); URINE WBC 1618 /uL (0-25.8)
[2021-04-09 22:17] LABS: PROTHROMBIN TIME (PATIENT) 11.5 SEC (9.7-13.0)
[2021-04-09 22:28] LABS: BASO % 0.6 % (0-2.0); EOS % 7.1 % (0-4.5); HEMATOCRIT 26.1 % (32.4-45.2); HEMOGLOBIN 8.9 GM/dL (10.7-15.3); LYMPH % 19.5 % (8-40); MCH 32.4 pg (25.7-33.7); MCHC 34.3 g/dl (32.0-36.0); MEAN CELL VOLUME 94.4 fl (80-96); MEAN PLT VOLUME 9.7 fl (7.5-11.1); MONO % 8.1 % (3.8-10.2); NEUT % 64.7 % (42.8-82.8); PLATELET COUNT 161 10^3/uL (134-434); RBC 2.76 M/mm3 (3.60-5.2); RDW 14.4 % (11.6-15.6); WHITE BLOOD COUNT 9.5 K/mm3 (4.0-10.0)
[2021-04-09 22:32] LABS: CALCIUM 10.5 mg/dL (8.5-10.1)
[2021-04-09 22:35] LABS: CREATININE 5.9 mg/dL (0.55-1.3)
[2021-04-09 22:37] LABS: BILIRUBIN,TOTAL 0.4 mg/dL (0.2-1); TOT PROT 7.9 g/dl (6.4-8.2)
[2021-04-09 22:39] LABS: N-TERMINAL BNP 842.6 pg/ml (5-125)
[2021-04-09 22:40] LABS: BLOOD UREA NITROGEN 93.5 mg/dL (7-18)
[2021-04-09] MEDS ORDERED: CEFTRIAXONE 1 GM in DEXTROSE 5%-WATER - 100 ML IVPB ONE (22:58)
[2021-04-09 23:03] LABS: PLATELET ESTIMATE NORMAL
[2021-04-09] MEDS ORDERED: CEFTRIAXONE 1 GM/50 ML BAG ONE (23:03)
[2021-04-09] MEDS ORDERED: SODIUM ZIRCONIUM CYCLOSILICATE (LOKELMA) 5 GM PACKET PO ONE (23:33)
[2021-04-10 00:25] LABS: BLOOD UREA NITROGEN 86.4 mg/dL (7-18)
[2021-04-10 00:28] LABS: CREATININE 5.9 mg/dL (0.55-1.3)
[2021-04-10] MEDS ORDERED: POLYETHYLENE GLYCOL (HEALTHYLAX) 3350 17 GM PACKET PO PRN (02:41)
[2021-04-10] MEDS ORDERED: QUEtiapine FUMARATE 100 MG TABLET (FP) PO ONE (03:01)
[2021-04-10] MEDS ORDERED: QUEtiapine FUMARATE 100 MG TABLET (FP) ONE (03:04)
[2021-04-10 05:31] VITALS: BMI 26.2
[2021-04-10] MEDS: oxyCODONE HCL 5 MG TABLET PO SCH ×4 (06:24→23:01)
[2021-04-10] MEDS: HEPARIN NA (PORCINE) 5,000 UNITS/ML 1ML VIAL SQ SCH ×3 (06:24→22:24)
[2021-04-10] MEDS: INSULIN SLIDING SCALE (NOVOLOG) 1 VIAL SQ SCH ×4 (06:35→22:28)
[2021-04-10] MEDS: LORazepam 1 MG TABLET PO PRN ×2 (06:35→17:02)
[2021-04-10] MEDS: CALCIUM ACETATE 667 MG CAPSULE (FP) PO SCH ×3 (09:28→17:38)
[2021-04-10] MEDS: CALCITRIOL 0.25 MCG CAPSULE (FP) PO SCH (09:29)
[2021-04-10] MEDS: QUEtiapine FUMARATE 100 MG TABLET (FP) PO SCH ×2 (09:30→22:25)
[2021-04-10] MEDS: MINERAL OIL/PET HY-PHL TOPICAL OINTMENT 454 GM JAR TP SCH (09:30)
[2021-04-10] MEDS: SODIUM BICARBONATE 650 MG TABLET PO SCH ×2 (09:30→22:25)
[2021-04-10] MEDS ORDERED: EPOETIN ALFA 10,000 UNIT/1 ML VIAL SQ ONE (12:15)
[2021-04-10] MEDS ORDERED: SODIUM CHLORIDE 250 ML IV PRN (12:15)
[2021-04-10] MEDS: DULoxetine HCL 20 MG CAPSULE.DR PO SCH (17:48)
[2021-04-10] MEDS ORDERED: cefTRIAXone SODIUM 1 GM VIAL ONE (22:19)
[2021-04-10] MEDS ORDERED: DEXTROSE 5%-WATER - 50 ML IVPB ONE (22:20)
[2021-04-10] MEDS: CEFTRIAXONE 1 GM in DEXTROSE 5%-WATER - 50 ML IVPB SCH (22:23)
[2021-04-10] MEDS: MELATONIN 5 MG TABLETS PO SCH (22:25)
[2021-04-10] MEDS: ATORVASTATIN CA 10 MG TABLET (FP) PO SCH (22:25)
[2021-04-11] MEDS: oxyCODONE HCL 5 MG TABLET PO SCH ×3 (06:06→17:36)
[2021-04-11] MEDS: HEPARIN NA (PORCINE) 5,000 UNITS/ML 1ML VIAL SQ SCH ×3 (06:07→22:16)
[2021-04-11] MEDS: INSULIN SLIDING SCALE (NOVOLOG) 1 VIAL SQ SCH ×4 (06:15→22:16)
[2021-04-11 07:49] LABS: BASO % 0.7 % (0-2.0); EOS % 3.9 % (0-4.5); HEMOGLOBIN 9.4 GM/dL (10.7-15.3); LYMPH % 25.4 % (8-40); MCH 31.6 pg (25.7-33.7); MCHC 33.7 g/dl (32.0-36.0); MEAN CELL VOLUME 93.7 fl (80-96); MEAN PLT VOLUME 9.2 fl (7.5-11.1); MONO % 8.3 % (3.8-10.2); NEUT % 61.7 % (42.8-82.8); PLATELET COUNT 198 10^3/uL (134-434); RBC 2.98 M/mm3 (3.60-5.2); WHITE BLOOD COUNT 8.4 K/mm3 (4.0-10.0)
[2021-04-11 07:55] LABS: CALCIUM 9.4 mg/dL (8.5-10.1); MAGNESIUM 2.2 mg/dL (1.8-2.4)
[2021-04-11 07:59] LABS: CREATININE 3.7 mg/dL (0.55-1.3); PHOSPHOROUS 3.7 mg/dL (2.5-4.9)
[2021-04-11 08:09] LABS: BLOOD UREA NITROGEN 37.6 mg/dL (7-18)
[2021-04-11] MEDS: CALCIUM ACETATE 667 MG CAPSULE (FP) PO SCH ×3 (08:27→17:35)
[2021-04-11] MEDS: MINERAL OIL/PET HY-PHL TOPICAL OINTMENT 454 GM JAR TP SCH (09:45)
[2021-04-11] MEDS: SODIUM BICARBONATE 650 MG TABLET PO SCH ×2 (09:46→22:15)
[2021-04-11] MEDS: CALCITRIOL 0.25 MCG CAPSULE (FP) PO SCH (09:46)
[2021-04-11] MEDS: QUEtiapine FUMARATE 100 MG TABLET (FP) PO SCH ×2 (09:46→22:15)
[2021-04-11] MEDS: DULoxetine HCL 20 MG CAPSULE.DR PO SCH (11:46)
[2021-04-11] MEDS ORDERED: DEXTROSE 5%-WATER - 50 ML IVPB ONE (21:53)
[2021-04-11] MEDS ORDERED: cefTRIAXone SODIUM 1 GM VIAL ONE (21:53)
[2021-04-11] MEDS: CEFTRIAXONE 1 GM in DEXTROSE 5%-WATER - 50 ML IVPB SCH (22:15)
[2021-04-11] MEDS: MELATONIN 5 MG TABLETS PO SCH (22:15)
[2021-04-11] MEDS: ATORVASTATIN CA 10 MG TABLET (FP) PO SCH (22:15)
[2021-04-12] MEDS: HEPARIN NA (PORCINE) 5,000 UNITS/ML 1ML VIAL SQ SCH ×3 (06:08→21:44)
[2021-04-12] MEDS: oxyCODONE HCL 5 MG TABLET PO SCH ×4 (06:11→17:35)
[2021-04-12] MEDS: INSULIN SLIDING SCALE (NOVOLOG) 1 VIAL SQ SCH ×4 (06:12→21:48)
[2021-04-12] MEDS: DULoxetine HCL 20 MG CAPSULE.DR PO SCH (10:11)
[2021-04-12] MEDS: CALCITRIOL 0.25 MCG CAPSULE (FP) PO SCH (10:12)
[2021-04-12] MEDS: QUEtiapine FUMARATE 100 MG TABLET (FP) PO SCH ×2 (10:12→21:44)
[2021-04-12] MEDS: SODIUM BICARBONATE 650 MG TABLET PO SCH ×2 (10:12→21:43)
[2021-04-12] MEDS: CALCIUM ACETATE 667 MG CAPSULE (FP) PO SCH ×3 (10:12→17:31)
[2021-04-12] MEDS: MINERAL OIL/PET HY-PHL TOPICAL OINTMENT 454 GM JAR TP SCH (10:12)
[2021-04-12] MEDS ORDERED: cefTRIAXone SODIUM 1 GM VIAL ONE (21:06)
[2021-04-12] MEDS ORDERED: DEXTROSE 5%-WATER - 50 ML IVPB ONE (21:06)
[2021-04-12] MEDS: MELATONIN 5 MG TABLETS PO SCH (21:43)
[2021-04-12] MEDS: ATORVASTATIN CA 10 MG TABLET (FP) PO SCH (21:44)
[2021-04-12] MEDS: CEFTRIAXONE 1 GM in DEXTROSE 5%-WATER - 50 ML IVPB SCH (21:52)
[2021-04-13] MEDS: oxyCODONE HCL 5 MG TABLET PO SCH ×4 (00:06→18:08)
[2021-04-13] MEDS: HEPARIN NA (PORCINE) 5,000 UNITS/ML 1ML VIAL SQ SCH ×3 (06:12→21:57)
[2021-04-13] MEDS: INSULIN SLIDING SCALE (NOVOLOG) 1 VIAL SQ SCH ×4 (06:47→22:13)
[2021-04-13 09:22] LABS: HEMATOCRIT 27.8 % (32.4-45.2); HEMOGLOBIN 9.2 GM/dL (10.7-15.3); MCH 31.3 pg (25.7-33.7); MCHC 33.1 g/dl (32.0-36.0); MEAN CELL VOLUME 94.5 fl (80-96); MEAN PLT VOLUME 8.7 fl (7.5-11.1); PLATELET COUNT 175 10^3/uL (134-434); RBC 2.95 M/mm3 (3.60-5.2); RDW 14.1 % (11.6-15.6)
[2021-04-13 09:58] LABS: ALBUMIN 3.5 g/dl (3.4-5.0); BLOOD UREA NITROGEN 54.3 mg/dL (7-18); CALCIUM 9.7 mg/dL (8.5-10.1)
[2021-04-13 10:00] LABS: CREATININE 5.4 mg/dL (0.55-1.3); PHOSPHOROUS 4.5 mg/dL (2.5-4.9)
[2021-04-13 10:02] LABS: BILIRUBIN,TOTAL 0.3 mg/dL (0.2-1); TOT PROT 7.4 g/dl (6.4-8.2)
[2021-04-13] MEDS: CALCIUM ACETATE 667 MG CAPSULE (FP) PO SCH ×3 (10:18→18:08)
[2021-04-13] MEDS: DULoxetine HCL 20 MG CAPSULE.DR PO SCH (10:18)
[2021-04-13] MEDS: CALCITRIOL 0.25 MCG CAPSULE (FP) PO SCH (10:19)
[2021-04-13] MEDS: QUEtiapine FUMARATE 100 MG TABLET (FP) PO SCH ×2 (10:19→21:59)
[2021-04-13] MEDS: MINERAL OIL/PET HY-PHL TOPICAL OINTMENT 454 GM JAR TP SCH (10:19)
[2021-04-13] MEDS: SODIUM BICARBONATE 650 MG TABLET PO SCH ×2 (10:19→21:59)
[2021-04-13] MEDS ORDERED: INSULIN (NOVOLOG) ASPART 100 UNITS/ML 10ML VIAL ONE (11:19)
[2021-04-13] MEDS ORDERED: SODIUM CHLORIDE 250 ML IV PRN (12:38)
[2021-04-13] MEDS: LORazepam 1 MG TABLET PO PRN (12:39)
[2021-04-13] MEDS ORDERED: EPOETIN ALFA-EPBX 10,000 UNIT/ML VIAL IVPUSH ONE (12:45)
[2021-04-13] MEDS ORDERED: DEXTROSE 5%-WATER - 50 ML IVPB ONE (21:43)
[2021-04-13] MEDS ORDERED: cefTRIAXone SODIUM 1 GM VIAL ONE ×2 (21:43→22:03)
[2021-04-13] MEDS: MELATONIN 5 MG TABLETS PO SCH (21:58)
[2021-04-13] MEDS: ATORVASTATIN CA 10 MG TABLET (FP) PO SCH (21:59)
[2021-04-13] MEDS: CEFTRIAXONE 1 GM in DEXTROSE 5%-WATER - 50 ML IVPB SCH (22:02)
[2021-04-14] MEDS: oxyCODONE HCL 5 MG TABLET PO SCH ×4 (00:05→17:48)
[2021-04-14] MEDS: HEPARIN NA (PORCINE) 5,000 UNITS/ML 1ML VIAL SQ SCH ×3 (05:42→21:41)
[2021-04-14] MEDS: INSULIN SLIDING SCALE (NOVOLOG) 1 VIAL SQ SCH ×4 (06:50→21:50)
[2021-04-14] MEDS: DULoxetine HCL 20 MG CAPSULE.DR PO SCH (10:34)
[2021-04-14] MEDS: CALCIUM ACETATE 667 MG CAPSULE (FP) PO SCH ×3 (10:34→17:50)
[2021-04-14] MEDS: CALCITRIOL 0.25 MCG CAPSULE (FP) PO SCH (10:34)
[2021-04-14] MEDS: MINERAL OIL/PET HY-PHL TOPICAL OINTMENT 454 GM JAR TP SCH (10:35)
[2021-04-14] MEDS: SODIUM BICARBONATE 650 MG TABLET PO SCH ×2 (10:35→21:42)
[2021-04-14] MEDS: QUEtiapine FUMARATE 100 MG TABLET (FP) PO SCH ×2 (10:35→21:41)
[2021-04-14] MEDS ORDERED: SODIUM CHLORIDE 250 ML IV PRN (16:31)
[2021-04-14] MEDS ORDERED: INSULIN (NOVOLOG) ASPART 100 UNITS/ML 10ML VIAL ONE (17:14)
[2021-04-14] MEDS ORDERED: cefTRIAXone SODIUM 1 GM VIAL ONE (20:30)
[2021-04-14] MEDS ORDERED: DEXTROSE 5%-WATER - 50 ML IVPB ONE (20:30)
[2021-04-14] MEDS: ATORVASTATIN CA 10 MG TABLET (FP) PO SCH (21:41)
[2021-04-14] MEDS: MELATONIN 5 MG TABLETS PO SCH (21:41)
[2021-04-14] MEDS: CEFTRIAXONE 1 GM in DEXTROSE 5%-WATER - 50 ML IVPB SCH (21:42)
[2021-04-15] MEDS: oxyCODONE HCL 5 MG TABLET PO SCH ×4 (01:15→17:27)
[2021-04-15] MEDS: HEPARIN NA (PORCINE) 5,000 UNITS/ML 1ML VIAL SQ SCH ×2 (05:24→17:01)
[2021-04-15] MEDS: INSULIN SLIDING SCALE (NOVOLOG) 1 VIAL SQ SCH ×3 (06:19→17:01)
[2021-04-15] MEDS: CALCIUM ACETATE 667 MG CAPSULE (FP) PO SCH ×3 (09:20→17:01)
[2021-04-15 11:07] LABS: SARS-CoV-2 NAA Not Detected (Not Detected)
[2021-04-15] MEDS: MINERAL OIL/PET HY-PHL TOPICAL OINTMENT 454 GM JAR TP SCH (12:30)
[2021-04-15] MEDS: DULoxetine HCL 20 MG CAPSULE.DR PO SCH (14:15)
[2021-04-15] MEDS: QUEtiapine FUMARATE 100 MG TABLET (FP) PO SCH (14:15)
[2021-04-15] MEDS: CALCITRIOL 0.25 MCG CAPSULE (FP) PO SCH (14:15)
[2021-04-15] MEDS: SODIUM BICARBONATE 650 MG TABLET PO SCH (14:16)
[2021-04-15] MEDS ORDERED: LORazepam 1 MG TABLET PO PRN (15:33)
[2021-04-15 15:39] VITALS: BP 138/73; PULSE 87; TEMP 98.9
[2021-04-15] MEDS ORDERED: EPOETIN ALFA-EPBX 10,000 UNIT/ML VIAL IVPUSH ONE (16:31)
[2021-04-15] MEDS ORDERED: amLODIPine BESYLATE 5 MG TABLET (FP) PO ONE (16:53)
== END 2021-04-15 21:00 | DRG 682 ==
LOC: JER 18:52 → JERBED 22:59 → J8W 04-10 04:45 → OBSVTOIN 04-13 12:13
PROVIDERS: ADMIT Internal Medicine; ATTEND Family Medicine
PROC: 5A1D70Z Performance of Urinary Filtration, Intermittent, Less than 6 Hours Per Day (ICD-10-PCS; principal; 2021-04-10)
PROC: 5A1D70Z Performance of Urinary Filtration, Intermittent, Less than 6 Hours Per Day (ICD-10-PCS; 2021-04-13)
DX: I12.0 Hypertensive chronic kidney disease with stage 5 chronic kidney disease or end stage renal disease (principal); N18.6 End stage renal disease; N17.9 Acute kidney failure, unspecified; N39.0 Urinary tract infection, site not specified; E11.22 Type 2 diabetes mellitus with diabetic chronic kidney disease; F25.9 Schizoaffective disorder, unspecified; K21.9 Gastro-esophageal reflux disease without esophagitis; J44.9 Chronic obstructive pulmonary disease, unspecified; R29.6 Repeated falls; B96.5 Pseudomonas (aeruginosa) (mallei) (pseudomallei) as the cause of diseases classified elsewhere; Z99.2 Dependence on renal dialysis; M54.50 Low back pain, unspecified; K44.9 Diaphragmatic hernia without obstruction or gangrene; R50.9 Fever, unspecified; D63.8 Anemia in other chronic diseases classified elsewhere
CPT/HCPCS: 36415; 71046-TC-FY; 80048; 80053; 81003; 82962; 83605; 83735; 83880; 84100; 84484; 85025; 85027; 85610; 85730; 86705; 87086; 87186; 87340; 87517; 87522; 99285-25; C9803; G0378; J0885; J1644; Q5106; U0003; U0005

== ENCOUNTER 2021-04-18 12:43 | Inpatient (IN) | payer OTHER ==
[2021-04-18 13:55] LABS: BASO % 0.7 % (0-2.0); EOS % 6.8 % (0-4.5); HEMATOCRIT 31.5 % (32.4-45.2); HEMOGLOBIN 10.7 GM/dL (10.7-15.3); LYMPH % 17.4 % (8-40); MCH 31.8 pg (25.7-33.7); MCHC 33.9 g/dl (32.0-36.0); MEAN PLT VOLUME 8.5 fl (7.5-11.1); MONO % 6.3 % (3.8-10.2); NEUT % 68.8 % (42.8-82.8); PLATELET COUNT 165 10^3/uL (134-434); RBC 3.35 M/mm3 (3.60-5.2); RDW 14.6 % (11.6-15.6); WHITE BLOOD COUNT 7.5 K/mm3 (4.0-10.0)
[2021-04-18 14:06] LABS: INR 1.01 (0.83-1.09); PROTHROMBIN TIME (PATIENT) 11.6 SEC (9.7-13.0)
[2021-04-18 14:09] LABS: ACTIVATED PTT 39.9 SECONDS (25.2-36.5)
[2021-04-18 14:13] LABS: CALCIUM 10.1 mg/dL (8.5-10.1)
[2021-04-18 14:14] LABS: ALBUMIN 4.1 g/dl (3.4-5.0); BLOOD UREA NITROGEN 63.7 mg/dL (7-18); MAGNESIUM 2.6 mg/dL (1.8-2.4)
[2021-04-18 14:17] LABS: PHOSPHOROUS 4.6 mg/dL (2.5-4.9)
[2021-04-18 14:19] LABS: BILIRUBIN,TOTAL 0.5 mg/dL (0.2-1); TOT PROT 8.5 g/dl (6.4-8.2)
[2021-04-18] MEDS ORDERED: SODIUM CHLORIDE 250 ML IV PRN (14:31)
[2021-04-18] MEDS ORDERED: LORazepam 2 MG TABLET PO PRN (16:15)
[2021-04-18] MEDS ORDERED: MELATONIN 5 MG TABLETS ONE (21:25)
[2021-04-18] MEDS ORDERED: QUEtiapine FUMARATE 100 MG TABLET (FP) ONE (21:26)
[2021-04-18] MEDS ORDERED: FERROUS SO4 325 MG TABLET (FP) ONE (21:26)
[2021-04-18] MEDS ORDERED: HEPARIN NA (PORCINE) 5,000 UNITS/ML 1ML VIAL ONE (21:26)
[2021-04-18] MEDS: QUEtiapine FUMARATE 100 MG TABLET (FP) PO SCH (21:37)
[2021-04-18] MEDS: MELATONIN 5 MG TABLETS PO SCH (21:37)
[2021-04-18] MEDS: HEPARIN NA (PORCINE) 5,000 UNITS/ML 1ML VIAL SQ SCH (21:37)
[2021-04-18] MEDS: FERROUS SO4 325 MG TABLET (FP) PO SCH (21:37)
[2021-04-18] MEDS: CALCIUM ACETATE 667 MG CAPSULE (FP) PO SCH (22:00)
[2021-04-18] MEDS: SODIUM BICARBONATE 650 MG TABLET PO SCH (22:45)
[2021-04-19] MEDS: ALBUTEROL SO4 HFA INHALER IH SCH ×4 (05:31→17:35)
[2021-04-19 07:10] LABS: BASO % 0.7 % (0-2.0); EOS % 7.1 % (0-4.5); HEMATOCRIT 27.5 % (32.4-45.2); HEMOGLOBIN 9.5 GM/dL (10.7-15.3); LYMPH % 18.5 % (8-40); MCH 32.3 pg (25.7-33.7); MCHC 34.7 g/dl (32.0-36.0); MEAN CELL VOLUME 93.1 fl (80-96); MEAN PLT VOLUME 8.5 fl (7.5-11.1); MONO % 8.5 % (3.8-10.2); NEUT % 65.2 % (42.8-82.8); PLATELET COUNT 133 10^3/uL (134-434); RBC 2.95 M/mm3 (3.60-5.2); RDW 14.3 % (11.6-15.6); WHITE BLOOD COUNT 6.5 K/mm3 (4.0-10.0)
[2021-04-19 08:03] LABS: CALCIUM 8.9 mg/dL (8.5-10.1)
[2021-04-19 08:04] LABS: ALBUMIN 3.5 g/dl (3.4-5.0)
[2021-04-19] MEDS ORDERED: POLYETHYLENE GLYCOL (HEALTHYLAX) 3350 17 GM PACKET ONE (08:06)
[2021-04-19 08:07] LABS: CREATININE 3.4 mg/dL (0.55-1.3)
[2021-04-19] MEDS ORDERED: QUEtiapine FUMARATE 100 MG TABLET (FP) ONE ×2 (08:07→21:24)
[2021-04-19] MEDS ORDERED: FERROUS SO4 325 MG TABLET (FP) ONE ×2 (08:07→21:24)
[2021-04-19] MEDS ORDERED: CHOLECALCIFEROL (VIT D3) 1,000 UNIT (25 MCG) TABLET ONE (08:07)
[2021-04-19] MEDS ORDERED: HEPARIN NA (PORCINE) 5,000 UNITS/ML 1ML VIAL ONE ×2 (08:07→21:24)
[2021-04-19 08:08] LABS: BILIRUBIN,TOTAL 0.5 mg/dL (0.2-1); TOT PROT 7.2 g/dl (6.4-8.2)
[2021-04-19 08:17] LABS: BLOOD UREA NITROGEN 37.2 mg/dL (7-18)
[2021-04-19] MEDS: FERROUS SO4 325 MG TABLET (FP) PO SCH ×2 (09:00→21:47)
[2021-04-19] MEDS: DULoxetine HCL 20 MG CAPSULE.DR PO SCH (09:00)
[2021-04-19] MEDS: CALCITRIOL 0.25 MCG CAPSULE (FP) PO SCH (09:00)
[2021-04-19] MEDS: CALCIUM ACETATE 667 MG CAPSULE (FP) PO SCH ×3 (09:00→18:15)
[2021-04-19] MEDS: QUEtiapine FUMARATE 100 MG TABLET (FP) PO SCH ×2 (09:00→21:48)
[2021-04-19] MEDS: CHOLECALCIFEROL (VIT D3) 1,000 UNIT (25 MCG) TABLET PO SCH (09:00)
[2021-04-19] MEDS: SODIUM BICARBONATE 650 MG TABLET PO SCH ×2 (09:00→21:48)
[2021-04-19] MEDS: POLYETHYLENE GLYCOL (HEALTHYLAX) 3350 17 GM PACKET PO SCH (09:00)
[2021-04-19] MEDS: HEPARIN NA (PORCINE) 5,000 UNITS/ML 1ML VIAL SQ SCH ×2 (09:18→21:47)
[2021-04-19] MEDS ORDERED: oxyCODONE HCL 5 MG TABLET ONE (09:29)
[2021-04-19] MEDS: oxyCODONE HCL 5 MG TABLET PO PRN (09:32)
[2021-04-19] MEDS ORDERED: LORazepam 1 MG TABLET ONE (17:16)
[2021-04-19] MEDS: LORazepam 1 MG TABLET PO PRN (17:25)
[2021-04-19] MEDS ORDERED: MELATONIN 5 MG TABLETS ONE (21:23)
[2021-04-19] MEDS: MELATONIN 5 MG TABLETS PO SCH (21:47)
[2021-04-20] MEDS ORDERED: ALBUTEROL SO4 HFA INHALER IH ONE (05:36)
[2021-04-20] MEDS: INSULIN SLIDING SCALE (NOVOLOG) 1 VIAL SQ SCH ×5 (05:44→22:52)
[2021-04-20] MEDS: ALBUTEROL SO4 HFA INHALER IH SCH ×4 (05:45→17:20)
[2021-04-20] MEDS: CALCIUM ACETATE 667 MG CAPSULE (FP) PO SCH ×3 (08:18→17:15)
[2021-04-20] MEDS ORDERED: CHOLECALCIFEROL (VIT D3) 1,000 UNIT (25 MCG) TABLET ONE (09:20)
[2021-04-20] MEDS ORDERED: QUEtiapine FUMARATE 100 MG TABLET (FP) ONE (09:20)
[2021-04-20] MEDS ORDERED: FERROUS SO4 325 MG TABLET (FP) ONE (09:20)
[2021-04-20] MEDS ORDERED: POLYETHYLENE GLYCOL (HEALTHYLAX) 3350 17 GM PACKET ONE (09:20)
[2021-04-20] MEDS ORDERED: HEPARIN NA (PORCINE) 5,000 UNITS/ML 1ML VIAL ONE (09:21)
[2021-04-20] MEDS: POLYETHYLENE GLYCOL (HEALTHYLAX) 3350 17 GM PACKET PO SCH (09:36)
[2021-04-20] MEDS: FERROUS SO4 325 MG TABLET (FP) PO SCH ×2 (09:36→22:51)
[2021-04-20] MEDS: QUEtiapine FUMARATE 100 MG TABLET (FP) PO SCH ×2 (09:36→22:51)
[2021-04-20] MEDS: CALCITRIOL 0.25 MCG CAPSULE (FP) PO SCH (09:36)
[2021-04-20] MEDS: DULoxetine HCL 20 MG CAPSULE.DR PO SCH (09:36)
[2021-04-20] MEDS: HEPARIN NA (PORCINE) 5,000 UNITS/ML 1ML VIAL SQ SCH ×2 (09:36→22:52)
[2021-04-20] MEDS: SODIUM BICARBONATE 650 MG TABLET PO SCH (09:37)
[2021-04-20] MEDS: CHOLECALCIFEROL (VIT D3) 1,000 UNIT (25 MCG) TABLET PO SCH (09:37)
[2021-04-20 11:07] LABS: SARS-CoV-2 NAA Not Detected (Not Detected)
[2021-04-20] MEDS: oxyCODONE HCL 5 MG TABLET PO PRN (17:13)
[2021-04-20 19:50] VITALS: BMI 23.5
[2021-04-20] MEDS: MELATONIN 5 MG TABLETS PO SCH (22:51)
[2021-04-21] MEDS: ALBUTEROL SO4 HFA INHALER IH SCH ×4 (00:39→17:55)
[2021-04-21] MEDS: INSULIN SLIDING SCALE (NOVOLOG) 1 VIAL SQ SCH ×4 (06:33→21:37)
[2021-04-21] MEDS: LORazepam 1 MG TABLET PO PRN (10:02)
[2021-04-21 11:02] LABS: HEMATOCRIT 26.9 % (32.4-45.2); MCH 31.3 pg (25.7-33.7); MCHC 33.4 g/dl (32.0-36.0); MEAN CELL VOLUME 93.6 fl (80-96); PLATELET COUNT 130 10^3/uL (134-434); RBC 2.87 M/mm3 (3.60-5.2); RDW 14.1 % (11.6-15.6); WHITE BLOOD COUNT 6.4 K/mm3 (4.0-10.0)
[2021-04-21 11:20] LABS: CALCIUM 9.9 mg/dL (8.5-10.1)
[2021-04-21 11:21] LABS: BLOOD UREA NITROGEN 45.4 mg/dL (7-18)
[2021-04-21 11:24] LABS: CREATININE 4.3 mg/dL (0.55-1.3)
[2021-04-21] MEDS: CALCIUM ACETATE 667 MG CAPSULE (FP) PO SCH ×3 (11:57→17:55)
[2021-04-21] MEDS ORDERED: EPOETIN ALFA-EPBX 4,000 UNIT/ML VIAL IVPUSH ONE (12:00)
[2021-04-21] MEDS ORDERED: SODIUM CHLORIDE 250 ML IV PRN (12:00)
[2021-04-21] MEDS: POLYETHYLENE GLYCOL (HEALTHYLAX) 3350 17 GM PACKET PO SCH (14:11)
[2021-04-21] MEDS: oxyCODONE HCL 5 MG TABLET PO PRN (14:11)
[2021-04-21] MEDS: FERROUS SO4 325 MG TABLET (FP) PO SCH ×2 (14:13→21:27)
[2021-04-21] MEDS: QUEtiapine FUMARATE 100 MG TABLET (FP) PO SCH ×2 (14:13→21:27)
[2021-04-21] MEDS: CHOLECALCIFEROL (VIT D3) 1,000 UNIT (25 MCG) TABLET PO SCH (14:13)
[2021-04-21] MEDS: HEPARIN NA (PORCINE) 5,000 UNITS/ML 1ML VIAL SQ SCH ×2 (14:13→21:26)
[2021-04-21] MEDS: DULoxetine HCL 20 MG CAPSULE.DR PO SCH (14:15)
[2021-04-21] MEDS: CALCITRIOL 0.25 MCG CAPSULE (FP) PO SCH (14:15)
[2021-04-21] MEDS: MELATONIN 5 MG TABLETS PO SCH (21:27)
[2021-04-22] MEDS: ALBUTEROL SO4 HFA INHALER IH SCH ×4 (00:14→17:11)
[2021-04-22] MEDS: INSULIN SLIDING SCALE (NOVOLOG) 1 VIAL SQ SCH ×4 (06:31→23:54)
[2021-04-22 08:49] LABS: BASO % 0.7 % (0-2.0); EOS % 6.3 % (0-4.5); HEMATOCRIT 27.6 % (32.4-45.2); HEMOGLOBIN 9.5 GM/dL (10.7-15.3); LYMPH % 25.9 % (8-40); MCHC 34.4 g/dl (32.0-36.0); MEAN CELL VOLUME 92.9 fl (80-96); MEAN PLT VOLUME 8.5 fl (7.5-11.1); MONO % 8.1 % (3.8-10.2); PLATELET COUNT 124 10^3/uL (134-434); RBC 2.97 M/mm3 (3.60-5.2); WHITE BLOOD COUNT 5.7 K/mm3 (4.0-10.0)
[2021-04-22 09:01] LABS: ALBUMIN 3.5 g/dl (3.4-5.0)
[2021-04-22 09:03] LABS: BILIRUBIN,DIRECT 0.1 mg/dL (0.0-0.2)
[2021-04-22 09:05] LABS: TOT PROT 7.3 g/dl (6.4-8.2)
[2021-04-22 09:06] LABS: BILIRUBIN,TOTAL 0.4 mg/dL (0.2-1)
[2021-04-22] MEDS: FERROUS SO4 325 MG TABLET (FP) PO SCH ×2 (09:13→21:03)
[2021-04-22] MEDS: CALCIUM ACETATE 667 MG CAPSULE (FP) PO SCH ×3 (09:13→16:43)
[2021-04-22] MEDS: CHOLECALCIFEROL (VIT D3) 1,000 UNIT (25 MCG) TABLET PO SCH (09:13)
[2021-04-22] MEDS: QUEtiapine FUMARATE 100 MG TABLET (FP) PO SCH ×2 (09:13→21:03)
[2021-04-22] MEDS: HEPARIN NA (PORCINE) 5,000 UNITS/ML 1ML VIAL SQ SCH ×2 (09:14→21:04)
[2021-04-22] MEDS: DULoxetine HCL 20 MG CAPSULE.DR PO SCH (09:14)
[2021-04-22] MEDS: POLYETHYLENE GLYCOL (HEALTHYLAX) 3350 17 GM PACKET PO SCH (09:14)
[2021-04-22] MEDS: CALCITRIOL 0.25 MCG CAPSULE (FP) PO SCH (09:14)
[2021-04-22 09:17] LABS: ALBUMIN 3.5 g/dl (3.4-5.0); CALCIUM 9.2 mg/dL (8.5-10.1)
[2021-04-22 09:18] LABS: BLOOD UREA NITROGEN 28.8 mg/dL (7-18); MAGNESIUM 2.1 mg/dL (1.8-2.4)
[2021-04-22 09:19] LABS: CREATININE 3.6 mg/dL (0.55-1.3)
[2021-04-22 09:21] LABS: BILIRUBIN,TOTAL 0.5 mg/dL (0.2-1); TOT PROT 7.2 g/dl (6.4-8.2)
[2021-04-22] MEDS: hydrALAZINE HCL 10 MG TABLET PO SCH ×2 (10:58→21:03)
[2021-04-22] MEDS ORDERED: ONDANSETRON 4 MG/2 ML VIAL IVPUSH PRN (12:28)
[2021-04-22] MEDS: LORazepam 1 MG TABLET PO PRN (14:08)
[2021-04-22] MEDS: ACETAMINOPHEN 325 MG TABLET (FP) PO PRN (16:40)
[2021-04-22] MEDS ORDERED: BISACODYL 10 MG SUPP.RECT PR ONE (17:35)
[2021-04-22] MEDS ORDERED: DOCUSATE SODIUM 100 MG CAPSULE (FP) PO PRN (17:35)
[2021-04-22] MEDS ORDERED: SODIUM CHLORIDE 250 ML IV PRN (18:35)
[2021-04-22] MEDS: MELATONIN 5 MG TABLETS PO SCH (21:03)
[2021-04-23] MEDS: INSULIN SLIDING SCALE (NOVOLOG) 1 VIAL SQ SCH ×4 (06:00→22:25)
[2021-04-23] MEDS: ALBUTEROL SO4 HFA INHALER IH SCH ×4 (06:54→17:56)
[2021-04-23] MEDS: hydrALAZINE HCL 10 MG TABLET PO SCH ×2 (11:12→22:16)
[2021-04-23] MEDS: CHOLECALCIFEROL (VIT D3) 1,000 UNIT (25 MCG) TABLET PO SCH (11:12)
[2021-04-23] MEDS: QUEtiapine FUMARATE 100 MG TABLET (FP) PO SCH ×2 (11:12→22:16)
[2021-04-23] MEDS: CALCIUM ACETATE 667 MG CAPSULE (FP) PO SCH ×3 (11:13→18:39)
[2021-04-23] MEDS: DULoxetine HCL 20 MG CAPSULE.DR PO SCH (11:13)
[2021-04-23] MEDS: CALCITRIOL 0.25 MCG CAPSULE (FP) PO SCH (11:13)
[2021-04-23] MEDS: HEPARIN NA (PORCINE) 5,000 UNITS/ML 1ML VIAL SQ SCH ×2 (11:14→22:15)
[2021-04-23] MEDS: FERROUS SO4 325 MG TABLET (FP) PO SCH ×2 (11:14→22:15)
[2021-04-23] MEDS: oxyCODONE HCL 5 MG TABLET PO PRN ×2 (11:15→18:38)
[2021-04-23] MEDS: POLYETHYLENE GLYCOL (HEALTHYLAX) 3350 17 GM PACKET PO SCH (11:22)
[2021-04-23] MEDS: LORazepam 1 MG TABLET PO PRN (14:09)
[2021-04-23] MEDS ORDERED: EPOETIN ALFA-EPBX 4,000 UNIT/ML VIAL SQ ONE (18:35)
[2021-04-23 18:36] LABS: BASO % 0.5 % (0-2.0); EOS % 4.9 % (0-4.5); HEMATOCRIT 25.7 % (32.4-45.2); HEMOGLOBIN 8.6 GM/dL (10.7-15.3); LYMPH % 19.9 % (8-40); MCH 31.5 pg (25.7-33.7); MCHC 33.7 g/dl (32.0-36.0); MEAN CELL VOLUME 93.6 fl (80-96); MEAN PLT VOLUME 9.2 fl (7.5-11.1); MONO % 6.7 % (3.8-10.2); PLATELET COUNT 126 10^3/uL (134-434); RBC 2.74 M/mm3 (3.60-5.2); RDW 13.8 % (11.6-15.6); WHITE BLOOD COUNT 6.3 K/mm3 (4.0-10.0)
[2021-04-23 19:01] LABS: ALBUMIN 3.3 g/dl (3.4-5.0); CALCIUM 9.8 mg/dL (8.5-10.1); MAGNESIUM 2.1 mg/dL (1.8-2.4)
[2021-04-23 19:02] LABS: BLOOD UREA NITROGEN 37.7 mg/dL (7-18)
[2021-04-23 19:04] LABS: CREATININE 4.1 mg/dL (0.55-1.3)
[2021-04-23 19:06] LABS: BILIRUBIN,TOTAL 0.4 mg/dL (0.2-1); TOT PROT 6.7 g/dl (6.4-8.2)
[2021-04-23] MEDS: MELATONIN 5 MG TABLETS PO SCH (22:15)
[2021-04-23] MEDS: ACETAMINOPHEN 325 MG TABLET (FP) PO PRN (23:16)
[2021-04-24] MEDS: ALBUTEROL SO4 HFA INHALER IH SCH ×4 (01:17→17:11)
[2021-04-24] MEDS: INSULIN SLIDING SCALE (NOVOLOG) 1 VIAL SQ SCH ×4 (06:24→22:57)
[2021-04-24] MEDS: ACETAMINOPHEN 325 MG TABLET (FP) PO PRN ×2 (09:23→15:35)
[2021-04-24] MEDS: CALCIUM ACETATE 667 MG CAPSULE (FP) PO SCH ×3 (09:23→17:10)
[2021-04-24] MEDS: CALCITRIOL 0.25 MCG CAPSULE (FP) PO SCH (09:23)
[2021-04-24] MEDS: QUEtiapine FUMARATE 100 MG TABLET (FP) PO SCH ×2 (09:23→22:49)
[2021-04-24] MEDS: DULoxetine HCL 20 MG CAPSULE.DR PO SCH (09:23)
[2021-04-24] MEDS: CHOLECALCIFEROL (VIT D3) 1,000 UNIT (25 MCG) TABLET PO SCH (09:23)
[2021-04-24] MEDS: HEPARIN NA (PORCINE) 5,000 UNITS/ML 1ML VIAL SQ SCH ×2 (09:23→22:49)
[2021-04-24] MEDS: hydrALAZINE HCL 10 MG TABLET PO SCH ×2 (09:23→22:49)
[2021-04-24] MEDS: FERROUS SO4 325 MG TABLET (FP) PO SCH ×2 (09:23→22:50)
[2021-04-24] MEDS: POLYETHYLENE GLYCOL (HEALTHYLAX) 3350 17 GM PACKET PO SCH (09:24)
[2021-04-24 10:29] LABS: BASO % 0.6 % (0-2.0); EOS % 5.4 % (0-4.5); HEMATOCRIT 28.8 % (32.4-45.2); LYMPH % 22.4 % (8-40); MCH 32.2 pg (25.7-33.7); MCHC 34.7 g/dl (32.0-36.0); MEAN CELL VOLUME 92.7 fl (80-96); MEAN PLT VOLUME 9.1 fl (7.5-11.1); MONO % 7.9 % (3.8-10.2); NEUT % 63.7 % (42.8-82.8); PLATELET COUNT 120 10^3/uL (134-434); RBC 3.11 M/mm3 (3.60-5.2); RDW 14.3 % (11.6-15.6); WHITE BLOOD COUNT 6.9 K/mm3 (4.0-10.0)
[2021-04-24 10:31] LABS: ALBUMIN 3.6 g/dl (3.4-5.0); BLOOD UREA NITROGEN 24.4 mg/dL (7-18); CALCIUM 9.3 mg/dL (8.5-10.1)
[2021-04-24 10:35] LABS: CREATININE 3.2 mg/dL (0.55-1.3)
[2021-04-24 10:36] LABS: BILIRUBIN,TOTAL 0.4 mg/dL (0.2-1); TOT PROT 7.2 g/dl (6.4-8.2)
[2021-04-24] MEDS: oxyCODONE HCL 5 MG TABLET PO PRN (13:39)
[2021-04-24] MEDS: MELATONIN 5 MG TABLETS PO SCH (22:49)
[2021-04-25] MEDS: ALBUTEROL SO4 HFA INHALER IH SCH ×5 (00:39→23:42)
[2021-04-25] MEDS: INSULIN SLIDING SCALE (NOVOLOG) 1 VIAL SQ SCH ×4 (06:25→21:29)
[2021-04-25] MEDS: QUEtiapine FUMARATE 100 MG TABLET (FP) PO SCH ×2 (10:05→21:29)
[2021-04-25] MEDS: DULoxetine HCL 20 MG CAPSULE.DR PO SCH (10:05)
[2021-04-25] MEDS: CALCITRIOL 0.25 MCG CAPSULE (FP) PO SCH (10:05)
[2021-04-25] MEDS: FERROUS SO4 325 MG TABLET (FP) PO SCH ×2 (10:05→21:29)
[2021-04-25] MEDS: CALCIUM ACETATE 667 MG CAPSULE (FP) PO SCH ×3 (10:05→17:32)
[2021-04-25] MEDS: HEPARIN NA (PORCINE) 5,000 UNITS/ML 1ML VIAL SQ SCH ×2 (10:05→21:30)
[2021-04-25] MEDS: CHOLECALCIFEROL (VIT D3) 1,000 UNIT (25 MCG) TABLET PO SCH (10:05)
[2021-04-25] MEDS: POLYETHYLENE GLYCOL (HEALTHYLAX) 3350 17 GM PACKET PO SCH (10:06)
[2021-04-25] MEDS: LORazepam 1 MG TABLET PO PRN (11:23)
[2021-04-25 12:38] LABS: HEMOGLOBIN 8.9 GM/dL (10.7-15.3); MCH 31.5 pg (25.7-33.7); MEAN CELL VOLUME 92.6 fl (80-96); MEAN PLT VOLUME 8.8 fl (7.5-11.1); PLATELET COUNT 138 10^3/uL (134-434); RBC 2.81 M/mm3 (3.60-5.2); RDW 13.7 % (11.6-15.6); WHITE BLOOD COUNT 6.3 K/mm3 (4.0-10.0)
[2021-04-25 12:55] LABS: CALCIUM 9.5 mg/dL (8.5-10.1)
[2021-04-25 12:56] LABS: ALBUMIN 3.5 g/dl (3.4-5.0); BLOOD UREA NITROGEN 34.6 mg/dL (7-18)
[2021-04-25 12:59] LABS: CREATININE 4.2 mg/dL (0.55-1.3)
[2021-04-25] MEDS ORDERED: SODIUM CHLORIDE 250 ML IV PRN (13:00)
[2021-04-25] MEDS ORDERED: EPOETIN ALFA-EPBX 4,000 UNIT/ML VIAL IVPUSH ONE (13:00)
[2021-04-25 13:01] LABS: BILIRUBIN,TOTAL 0.5 mg/dL (0.2-1)
[2021-04-25] MEDS: hydrALAZINE HCL 10 MG TABLET PO SCH ×2 (16:00→21:29)
[2021-04-25] MEDS: oxyCODONE HCL 5 MG TABLET PO PRN (16:01)
[2021-04-25] MEDS: MELATONIN 5 MG TABLETS PO SCH (21:29)
[2021-04-26] MEDS: ALBUTEROL SO4 HFA INHALER IH SCH ×3 (06:05→17:15)
[2021-04-26] MEDS: INSULIN SLIDING SCALE (NOVOLOG) 1 VIAL SQ SCH ×4 (06:09→21:09)
[2021-04-26] MEDS: CALCIUM ACETATE 667 MG CAPSULE (FP) PO SCH ×3 (09:00→17:30)
[2021-04-26] MEDS: CHOLECALCIFEROL (VIT D3) 1,000 UNIT (25 MCG) TABLET PO SCH (09:40)
[2021-04-26] MEDS: CALCITRIOL 0.25 MCG CAPSULE (FP) PO SCH (09:40)
[2021-04-26] MEDS: FERROUS SO4 325 MG TABLET (FP) PO SCH ×2 (09:40→21:01)
[2021-04-26] MEDS: hydrALAZINE HCL 10 MG TABLET PO SCH ×2 (09:40→21:00)
[2021-04-26] MEDS: QUEtiapine FUMARATE 100 MG TABLET (FP) PO SCH ×2 (09:40→21:00)
[2021-04-26] MEDS: POLYETHYLENE GLYCOL (HEALTHYLAX) 3350 17 GM PACKET PO SCH (09:41)
[2021-04-26] MEDS: ACETAMINOPHEN 325 MG TABLET (FP) PO PRN ×2 (09:41→21:00)
[2021-04-26] MEDS: DULoxetine HCL 20 MG CAPSULE.DR PO SCH (09:46)
[2021-04-26] MEDS ORDERED: LORazepam 0.5 MG TABLET PO ONE (17:40)
[2021-04-26] MEDS: MELATONIN 5 MG TABLETS PO SCH (21:00)
[2021-04-27] MEDS: ALBUTEROL SO4 HFA INHALER IH SCH ×3 (06:09→17:11)
[2021-04-27] MEDS: INSULIN SLIDING SCALE (NOVOLOG) 1 VIAL SQ SCH ×4 (06:09→21:32)
[2021-04-27] MEDS: ACETAMINOPHEN 325 MG TABLET (FP) PO PRN ×3 (09:11→21:27)
[2021-04-27] MEDS: QUEtiapine FUMARATE 100 MG TABLET (FP) PO SCH ×2 (09:11→21:28)
[2021-04-27] MEDS: DULoxetine HCL 20 MG CAPSULE.DR PO SCH (09:12)
[2021-04-27] MEDS: CALCIUM ACETATE 667 MG CAPSULE (FP) PO SCH ×3 (09:12→17:10)
[2021-04-27] MEDS: CHOLECALCIFEROL (VIT D3) 1,000 UNIT (25 MCG) TABLET PO SCH (09:12)
[2021-04-27] MEDS: FERROUS SO4 325 MG TABLET (FP) PO SCH ×2 (09:12→21:28)
[2021-04-27] MEDS: CALCITRIOL 0.25 MCG CAPSULE (FP) PO SCH (09:12)
[2021-04-27] MEDS: hydrALAZINE HCL 10 MG TABLET PO SCH ×2 (09:12→21:28)
[2021-04-27] MEDS: VITAMIN B COMP W-C 1 EA TABLET (NEPHRO-VITE) PO SCH (09:13)
[2021-04-27] MEDS: POLYETHYLENE GLYCOL (HEALTHYLAX) 3350 17 GM PACKET PO SCH (09:13)
[2021-04-27] MEDS: MELATONIN 5 MG TABLETS PO SCH (21:27)
[2021-04-28] MEDS: ALBUTEROL SO4 HFA INHALER IH SCH ×4 (04:47→18:22)
[2021-04-28] MEDS: INSULIN SLIDING SCALE (NOVOLOG) 1 VIAL SQ SCH ×4 (06:26→21:05)
[2021-04-28] MEDS: CALCIUM ACETATE 667 MG CAPSULE (FP) PO SCH ×3 (08:09→16:46)
[2021-04-28] MEDS ORDERED: LORazepam 2 MG TABLET PO PRN (10:08)
[2021-04-28] MEDS: LORazepam 1 MG TABLET PO PRN (10:52)
[2021-04-28] MEDS: QUEtiapine FUMARATE 100 MG TABLET (FP) PO SCH ×2 (10:52→21:04)
[2021-04-28] MEDS: FERROUS SO4 325 MG TABLET (FP) PO SCH ×2 (10:53→21:04)
[2021-04-28] MEDS: POLYETHYLENE GLYCOL (HEALTHYLAX) 3350 17 GM PACKET PO SCH (10:53)
[2021-04-28] MEDS: CHOLECALCIFEROL (VIT D3) 1,000 UNIT (25 MCG) TABLET PO SCH (10:53)
[2021-04-28] MEDS: VITAMIN B COMP W-C 1 EA TABLET (NEPHRO-VITE) PO SCH (10:54)
[2021-04-28] MEDS: CALCITRIOL 0.25 MCG CAPSULE (FP) PO SCH (10:56)
[2021-04-28] MEDS: DULoxetine HCL 20 MG CAPSULE.DR PO SCH (10:57)
[2021-04-28] MEDS: hydrALAZINE HCL 10 MG TABLET PO SCH ×2 (10:59→23:56)
[2021-04-28] MEDS ORDERED: hydrALAZINE HCL 10 MG TABLET PO ONE (16:09)
[2021-04-28] MEDS: MELATONIN 5 MG TABLETS PO SCH (21:03)
[2021-04-29] MEDS: ALBUTEROL SO4 HFA INHALER IH SCH ×4 (05:36→17:40)
[2021-04-29] MEDS: INSULIN SLIDING SCALE (NOVOLOG) 1 VIAL SQ SCH ×4 (06:20→21:52)
[2021-04-29] MEDS: CALCIUM ACETATE 667 MG CAPSULE (FP) PO SCH ×3 (08:38→16:33)
[2021-04-29] MEDS: hydrALAZINE HCL 10 MG TABLET PO SCH ×2 (09:47→21:39)
[2021-04-29] MEDS: FERROUS SO4 325 MG TABLET (FP) PO SCH ×2 (09:47→21:40)
[2021-04-29] MEDS: LORazepam 1 MG TABLET PO PRN (09:47)
[2021-04-29] MEDS: QUEtiapine FUMARATE 100 MG TABLET (FP) PO SCH ×2 (09:47→21:39)
[2021-04-29] MEDS: CHOLECALCIFEROL (VIT D3) 1,000 UNIT (25 MCG) TABLET PO SCH (09:47)
[2021-04-29] MEDS: POLYETHYLENE GLYCOL (HEALTHYLAX) 3350 17 GM PACKET PO SCH (09:48)
[2021-04-29] MEDS: DULoxetine HCL 20 MG CAPSULE.DR PO SCH (09:51)
[2021-04-29] MEDS: CALCITRIOL 0.25 MCG CAPSULE (FP) PO SCH (09:51)
[2021-04-29] MEDS: VITAMIN B COMP W-C 1 EA TABLET (NEPHRO-VITE) PO SCH (10:17)
[2021-04-29] MEDS: ACETAMINOPHEN 325 MG TABLET (FP) PO PRN (15:29)
[2021-04-29] MEDS ORDERED: SODIUM CHLORIDE 250 ML IV PRN (16:50)
[2021-04-29] MEDS ORDERED: EPOETIN ALFA-EPBX 4,000 UNIT/ML VIAL SQ ONE (17:00)
[2021-04-29 19:35] LABS: HEMATOCRIT 25.6 % (32.4-45.2); HEMOGLOBIN 8.7 GM/dL (10.7-15.3); MCH 31.8 pg (25.7-33.7); MCHC 33.9 g/dl (32.0-36.0); MEAN CELL VOLUME 93.7 fl (80-96); MEAN PLT VOLUME 8.9 fl (7.5-11.1); PLATELET COUNT 141 10^3/uL (134-434); RBC 2.73 M/mm3 (3.60-5.2); RDW 14.7 % (11.6-15.6); WHITE BLOOD COUNT 8.2 K/mm3 (4.0-10.0)
[2021-04-29 20:37] LABS: CALCIUM 10.3 mg/dL (8.5-10.1)
[2021-04-29 20:39] LABS: BLOOD UREA NITROGEN 57.9 mg/dL (7-18)
[2021-04-29 20:42] LABS: CREATININE 5.3 mg/dL (0.55-1.3)
[2021-04-29] MEDS: MELATONIN 5 MG TABLETS PO SCH (21:40)
[2021-04-30] MEDS: ALBUTEROL SO4 HFA INHALER IH SCH ×4 (00:06→17:09)
[2021-04-30] MEDS: hydrALAZINE HCL 10 MG TABLET PO SCH ×3 (06:47→22:09)
[2021-04-30] MEDS: INSULIN SLIDING SCALE (NOVOLOG) 1 VIAL SQ SCH ×4 (06:48→22:10)
[2021-04-30] MEDS: QUEtiapine FUMARATE 100 MG TABLET (FP) PO SCH ×2 (09:22→22:09)
[2021-04-30] MEDS: CALCIUM ACETATE 667 MG CAPSULE (FP) PO SCH ×3 (09:22→17:09)
[2021-04-30] MEDS: POLYETHYLENE GLYCOL (HEALTHYLAX) 3350 17 GM PACKET PO SCH (09:23)
[2021-04-30] MEDS: VITAMIN B COMP W-C 1 EA TABLET (NEPHRO-VITE) PO SCH (09:23)
[2021-04-30] MEDS: DULoxetine HCL 20 MG CAPSULE.DR PO SCH (09:23)
[2021-04-30] MEDS: FERROUS SO4 325 MG TABLET (FP) PO SCH ×2 (09:23→22:09)
[2021-04-30] MEDS: CHOLECALCIFEROL (VIT D3) 1,000 UNIT (25 MCG) TABLET PO SCH (09:23)
[2021-04-30] MEDS: CALCITRIOL 0.25 MCG CAPSULE (FP) PO SCH (09:23)
[2021-04-30] MEDS: ACETAMINOPHEN 325 MG TABLET (FP) PO PRN ×2 (11:23→18:01)
[2021-04-30] MEDS: LORazepam 1 MG TABLET PO PRN (12:26)
[2021-04-30] MEDS: MELATONIN 5 MG TABLETS PO SCH (22:09)
[2021-05-01] MEDS: ALBUTEROL SO4 HFA INHALER IH SCH ×6 (01:20→23:53)
[2021-05-01] MEDS: hydrALAZINE HCL 10 MG TABLET PO SCH ×3 (06:14→21:07)
[2021-05-01] MEDS: INSULIN SLIDING SCALE (NOVOLOG) 1 VIAL SQ SCH ×4 (06:14→21:07)
[2021-05-01] MEDS ORDERED: SODIUM CHLORIDE 250 ML IV PRN (07:25)
[2021-05-01] MEDS: FERROUS SO4 325 MG TABLET (FP) PO SCH ×2 (09:15→21:07)
[2021-05-01] MEDS: CHOLECALCIFEROL (VIT D3) 1,000 UNIT (25 MCG) TABLET PO SCH (09:15)
[2021-05-01] MEDS: CALCITRIOL 0.25 MCG CAPSULE (FP) PO SCH (09:15)
[2021-05-01] MEDS: VITAMIN B COMP W-C 1 EA TABLET (NEPHRO-VITE) PO SCH (09:15)
[2021-05-01] MEDS: DULoxetine HCL 20 MG CAPSULE.DR PO SCH (09:15)
[2021-05-01] MEDS: CALCIUM ACETATE 667 MG CAPSULE (FP) PO SCH ×3 (09:15→17:15)
[2021-05-01] MEDS: QUEtiapine FUMARATE 100 MG TABLET (FP) PO SCH ×2 (09:15→21:07)
[2021-05-01] MEDS: POLYETHYLENE GLYCOL (HEALTHYLAX) 3350 17 GM PACKET PO SCH (09:16)
[2021-05-01 11:26] LABS: BASO % 0.6 % (0-2.0); EOS % 5.6 % (0-4.5); HEMATOCRIT 24.2 % (32.4-45.2); HEMOGLOBIN 8.2 GM/dL (10.7-15.3); LYMPH % 21.4 % (8-40); MCH 31.7 pg (25.7-33.7); MEAN CELL VOLUME 93.3 fl (80-96); MONO % 7.7 % (3.8-10.2); NEUT % 64.7 % (42.8-82.8); PLATELET COUNT 113 10^3/uL (134-434); RBC 2.59 M/mm3 (3.60-5.2); RDW 14.5 % (11.6-15.6); WHITE BLOOD COUNT 6.5 K/mm3 (4.0-10.0)
[2021-05-01 11:50] LABS: CALCIUM 9.4 mg/dL (8.5-10.1)
[2021-05-01 11:51] LABS: ALBUMIN 3.1 g/dl (3.4-5.0); BLOOD UREA NITROGEN 46.6 mg/dL (7-18)
[2021-05-01 11:54] LABS: CREATININE 4.5 mg/dL (0.55-1.3)
[2021-05-01 11:55] LABS: BILIRUBIN,TOTAL 0.3 mg/dL (0.2-1); TOT PROT 6.2 g/dl (6.4-8.2)
[2021-05-01] MEDS ORDERED: EPOETIN ALFA-EPBX 10,000 UNIT/ML VIAL IVPUSH ONE (12:00)
[2021-05-01] MEDS: LORazepam 1 MG TABLET PO PRN (14:00)
[2021-05-01] MEDS: ACETAMINOPHEN 325 MG TABLET (FP) PO PRN (15:24)
[2021-05-01] MEDS: MELATONIN 5 MG TABLETS PO SCH (21:07)
[2021-05-02] MEDS: ALBUTEROL SO4 HFA INHALER IH SCH ×3 (06:15→17:34)
[2021-05-02] MEDS: hydrALAZINE HCL 10 MG TABLET PO SCH ×3 (06:15→21:07)
[2021-05-02] MEDS: INSULIN SLIDING SCALE (NOVOLOG) 1 VIAL SQ SCH ×2 (06:15→12:18)
[2021-05-02] MEDS: ACETAMINOPHEN 325 MG TABLET (FP) PO PRN ×2 (06:53→14:43)
[2021-05-02] MEDS: CALCIUM ACETATE 667 MG CAPSULE (FP) PO SCH ×3 (09:26→17:33)
[2021-05-02] MEDS: QUEtiapine FUMARATE 100 MG TABLET (FP) PO SCH ×2 (09:26→21:07)
[2021-05-02] MEDS: VITAMIN B COMP W-C 1 EA TABLET (NEPHRO-VITE) PO SCH (09:26)
[2021-05-02] MEDS: CHOLECALCIFEROL (VIT D3) 1,000 UNIT (25 MCG) TABLET PO SCH (09:26)
[2021-05-02] MEDS: FERROUS SO4 325 MG TABLET (FP) PO SCH ×2 (09:26→21:07)
[2021-05-02] MEDS: CALCITRIOL 0.25 MCG CAPSULE (FP) PO SCH (09:28)
[2021-05-02] MEDS: DULoxetine HCL 20 MG CAPSULE.DR PO SCH (09:28)
[2021-05-02] MEDS: POLYETHYLENE GLYCOL (HEALTHYLAX) 3350 17 GM PACKET PO SCH (09:50)
[2021-05-02 12:07] LABS: SARS-CoV-2 NAA Not Detected (Not Detected)
[2021-05-02] MEDS: LORazepam 1 MG TABLET PO PRN (15:24)
[2021-05-02] MEDS: MELATONIN 5 MG TABLETS PO SCH (21:07)
[2021-05-03] MEDS: ALBUTEROL SO4 HFA INHALER IH SCH ×5 (00:32→23:34)
[2021-05-03] MEDS: hydrALAZINE HCL 10 MG TABLET PO SCH ×3 (05:20→21:03)
[2021-05-03] MEDS: INSULIN SLIDING SCALE (NOVOLOG) 1 VIAL SQ SCH ×2 (06:03→17:29)
[2021-05-03] MEDS: CALCIUM ACETATE 667 MG CAPSULE (FP) PO SCH ×3 (08:59→17:37)
[2021-05-03] MEDS: QUEtiapine FUMARATE 100 MG TABLET (FP) PO SCH ×2 (10:16→21:03)
[2021-05-03] MEDS: CHOLECALCIFEROL (VIT D3) 1,000 UNIT (25 MCG) TABLET PO SCH (10:16)
[2021-05-03] MEDS: DULoxetine HCL 20 MG CAPSULE.DR PO SCH (10:16)
[2021-05-03] MEDS: VITAMIN B COMP W-C 1 EA TABLET (NEPHRO-VITE) PO SCH (10:16)
[2021-05-03] MEDS: CALCITRIOL 0.25 MCG CAPSULE (FP) PO SCH (10:16)
[2021-05-03] MEDS: FERROUS SO4 325 MG TABLET (FP) PO SCH ×2 (10:16→21:03)
[2021-05-03] MEDS: POLYETHYLENE GLYCOL (HEALTHYLAX) 3350 17 GM PACKET PO SCH (10:19)
[2021-05-03] MEDS: ACETAMINOPHEN 325 MG TABLET (FP) PO PRN ×2 (12:19→22:24)
[2021-05-03] MEDS: LORazepam 1 MG TABLET PO PRN (14:16)
[2021-05-03] MEDS ORDERED: SODIUM CHLORIDE 250 ML IV PRN (19:27)
[2021-05-03] MEDS: MELATONIN 5 MG TABLETS PO SCH (21:03)
[2021-05-04] MEDS: hydrALAZINE HCL 10 MG TABLET PO SCH ×3 (05:30→21:33)
[2021-05-04] MEDS: ALBUTEROL SO4 HFA INHALER IH SCH ×3 (05:30→17:19)
[2021-05-04] MEDS: INSULIN SLIDING SCALE (NOVOLOG) 1 VIAL SQ SCH ×2 (06:11→16:30)
[2021-05-04] MEDS: POLYETHYLENE GLYCOL (HEALTHYLAX) 3350 17 GM PACKET PO SCH (10:08)
[2021-05-04] MEDS: LORazepam 1 MG TABLET PO PRN (10:14)
[2021-05-04] MEDS: FERROUS SO4 325 MG TABLET (FP) PO SCH ×2 (10:15→21:34)
[2021-05-04] MEDS: CHOLECALCIFEROL (VIT D3) 1,000 UNIT (25 MCG) TABLET PO SCH (10:15)
[2021-05-04] MEDS: VITAMIN B COMP W-C 1 EA TABLET (NEPHRO-VITE) PO SCH (10:15)
[2021-05-04] MEDS: QUEtiapine FUMARATE 100 MG TABLET (FP) PO SCH ×2 (10:15→21:34)
[2021-05-04] MEDS: CALCIUM ACETATE 667 MG CAPSULE (FP) PO SCH ×3 (10:15→18:42)
[2021-05-04] MEDS: DULoxetine HCL 20 MG CAPSULE.DR PO SCH (10:21)
[2021-05-04] MEDS: CALCITRIOL 0.25 MCG CAPSULE (FP) PO SCH (10:21)
[2021-05-04 10:44] LABS: BASO % 0.8 % (0-2.0); EOS % 4.6 % (0-4.5); HEMATOCRIT 31.6 % (32.4-45.2); HEMOGLOBIN 10.8 GM/dL (10.7-15.3); LYMPH % 18.3 % (8-40); MCH 32.2 pg (25.7-33.7); MCHC 34.1 g/dl (32.0-36.0); MEAN CELL VOLUME 94.4 fl (80-96); MONO % 6.1 % (3.8-10.2); NEUT % 70.2 % (42.8-82.8); PLATELET COUNT 184 10^3/uL (134-434); RBC 3.35 M/mm3 (3.60-5.2); RDW 15.1 % (11.6-15.6); WHITE BLOOD COUNT 8.7 K/mm3 (4.0-10.0)
[2021-05-04 10:53] LABS: CALCIUM 10.4 mg/dL (8.5-10.1)
[2021-05-04 10:55] LABS: BLOOD UREA NITROGEN 60.8 mg/dL (7-18); MAGNESIUM 2.2 mg/dL (1.8-2.4)
[2021-05-04 10:59] LABS: BILIRUBIN,TOTAL 0.4 mg/dL (0.2-1); TOT PROT 7.7 g/dl (6.4-8.2)
[2021-05-04 11:11] LABS: ALBUMIN 3.8 g/dl (3.4-5.0)
[2021-05-04] MEDS: ACETAMINOPHEN 325 MG TABLET (FP) PO PRN ×2 (11:20→21:33)
[2021-05-04] MEDS ORDERED: oxyCODONE HCL 5 MG TABLET PO PRN (15:26)
[2021-05-04] MEDS: oxyCODONE HCL 5 MG TABLET PO PRN (16:28)
[2021-05-04] MEDS: MELATONIN 5 MG TABLETS PO SCH (21:34)
[2021-05-05] MEDS: ALBUTEROL SO4 HFA INHALER IH SCH ×4 (03:47→18:02)
[2021-05-05] MEDS: INSULIN SLIDING SCALE (NOVOLOG) 1 VIAL SQ SCH ×2 (06:54→16:59)
[2021-05-05] MEDS: hydrALAZINE HCL 10 MG TABLET PO SCH ×3 (06:54→22:13)
[2021-05-05] MEDS: CALCIUM ACETATE 667 MG CAPSULE (FP) PO SCH ×3 (08:35→17:59)
[2021-05-05] MEDS: CHOLECALCIFEROL (VIT D3) 1,000 UNIT (25 MCG) TABLET PO SCH (09:40)
[2021-05-05] MEDS: VITAMIN B COMP W-C 1 EA TABLET (NEPHRO-VITE) PO SCH (09:40)
[2021-05-05] MEDS: QUEtiapine FUMARATE 100 MG TABLET (FP) PO SCH ×2 (09:40→22:13)
[2021-05-05] MEDS: FERROUS SO4 325 MG TABLET (FP) PO SCH ×2 (09:40→22:13)
[2021-05-05] MEDS: CALCITRIOL 0.25 MCG CAPSULE (FP) PO SCH (09:41)
[2021-05-05] MEDS: DULoxetine HCL 20 MG CAPSULE.DR PO SCH (09:41)
[2021-05-05] MEDS: POLYETHYLENE GLYCOL (HEALTHYLAX) 3350 17 GM PACKET PO SCH (09:41)
[2021-05-05] MEDS: LORazepam 1 MG TABLET PO PRN ×2 (09:50→17:59)
[2021-05-05] MEDS ORDERED: SODIUM CHLORIDE 250 ML IV PRN (12:52)
[2021-05-05] MEDS: oxyCODONE HCL 5 MG TABLET PO PRN ×2 (13:06→20:14)
[2021-05-05 14:38] LABS: BASO % 0.5 % (0-2.0); EOS % 3.9 % (0-4.5); HEMATOCRIT 29.1 % (32.4-45.2); MCH 32.1 pg (25.7-33.7); MCHC 34.3 g/dl (32.0-36.0); MEAN CELL VOLUME 93.7 fl (80-96); MEAN PLT VOLUME 8.6 fl (7.5-11.1); MONO % 6.6 % (3.8-10.2); PLATELET COUNT 153 10^3/uL (134-434); RBC 3.11 M/mm3 (3.60-5.2); WHITE BLOOD COUNT 7.7 K/mm3 (4.0-10.0)
[2021-05-05 14:51] LABS: ALBUMIN 3.3 g/dl (3.4-5.0)
[2021-05-05 14:54] LABS: CREATININE 4.1 mg/dL (0.55-1.3)
[2021-05-05 14:55] LABS: BILIRUBIN,TOTAL 0.3 mg/dL (0.2-1)
[2021-05-05 14:56] LABS: TOT PROT 7.1 g/dl (6.4-8.2)
[2021-05-05 14:57] LABS: BLOOD UREA NITROGEN 35.6 mg/dL (7-18); CALCIUM 8.6 mg/dL (8.5-10.1)
[2021-05-05] MEDS: MELATONIN 5 MG TABLETS PO SCH (22:13)
[2021-05-06] MEDS: ALBUTEROL SO4 HFA INHALER IH SCH ×4 (01:12→17:11)
[2021-05-06] MEDS: INSULIN SLIDING SCALE (NOVOLOG) 1 VIAL SQ SCH ×2 (06:25→17:10)
[2021-05-06] MEDS: hydrALAZINE HCL 10 MG TABLET PO SCH ×3 (06:25→21:06)
[2021-05-06] MEDS: BENZOCAINE/MENTH/CETYLPYRD CL 1 EACH LOZENGE MM PRN ×3 (07:57→13:12)
[2021-05-06] MEDS: CALCIUM ACETATE 667 MG CAPSULE (FP) PO SCH ×3 (07:58→17:11)
[2021-05-06] MEDS: FERROUS SO4 325 MG TABLET (FP) PO SCH ×2 (09:20→21:06)
[2021-05-06] MEDS: QUEtiapine FUMARATE 100 MG TABLET (FP) PO SCH ×2 (09:20→21:06)
[2021-05-06] MEDS: POLYETHYLENE GLYCOL (HEALTHYLAX) 3350 17 GM PACKET PO SCH (09:20)
[2021-05-06] MEDS: VITAMIN B COMP W-C 1 EA TABLET (NEPHRO-VITE) PO SCH (09:20)
[2021-05-06] MEDS: CHOLECALCIFEROL (VIT D3) 1,000 UNIT (25 MCG) TABLET PO SCH (09:20)
[2021-05-06] MEDS: LORazepam 1 MG TABLET PO PRN (09:20)
[2021-05-06] MEDS: CALCITRIOL 0.25 MCG CAPSULE (FP) PO SCH (09:21)
[2021-05-06] MEDS: DULoxetine HCL 20 MG CAPSULE.DR PO SCH (09:21)
[2021-05-06] MEDS: ACETAMINOPHEN 325 MG TABLET (FP) PO PRN (14:22)
[2021-05-06] MEDS ORDERED: EPOETIN ALFA-EPBX 4,000 UNIT/ML VIAL IVPUSH ONE (15:15)
[2021-05-06] MEDS ORDERED: ALPRAZolam 1 MG TABLET PO ONE (15:36)
[2021-05-06] MEDS ORDERED: SODIUM CHLORIDE NASAL SPRAY 44 ML BOTTLE NS PRN (15:38)
[2021-05-06] MEDS ORDERED: SODIUM CHLORIDE FOR INHALATION 3 ML VIAL.NEB IH PRN (15:38)
[2021-05-06] MEDS ORDERED: ALPRAZolam 0.25 MG TABLET PO ONE (15:45)
[2021-05-06 18:08] LABS: HEMATOCRIT 25.4 % (32.4-45.2); HEMOGLOBIN 8.6 GM/dL (10.7-15.3); MCH 31.8 pg (25.7-33.7); MCHC 33.7 g/dl (32.0-36.0); MEAN CELL VOLUME 94.4 fl (80-96); MEAN PLT VOLUME 8.9 fl (7.5-11.1); PLATELET COUNT 145 10^3/uL (134-434); RBC 2.69 M/mm3 (3.60-5.2); RDW 15.1 % (11.6-15.6); WHITE BLOOD COUNT 7.3 K/mm3 (4.0-10.0)
[2021-05-06 18:32] LABS: BLOOD UREA NITROGEN 52.8 mg/dL (7-18)
[2021-05-06 18:36] LABS: CREATININE 4.7 mg/dL (0.55-1.3)
[2021-05-06 18:37] LABS: TOT PROT 6.6 g/dl (6.4-8.2)
[2021-05-06 18:38] LABS: BILIRUBIN,TOTAL 0.3 mg/dL (0.2-1)
[2021-05-06] MEDS: oxyCODONE HCL 5 MG TABLET PO PRN (20:06)
[2021-05-06] MEDS: MELATONIN 5 MG TABLETS PO SCH (21:06)
[2021-05-07] MEDS: ALBUTEROL SO4 HFA INHALER IH SCH (05:28)
[2021-05-07] MEDS: hydrALAZINE HCL 10 MG TABLET PO SCH (05:38)
[2021-05-07] MEDS: INSULIN SLIDING SCALE (NOVOLOG) 1 VIAL SQ SCH (06:01)
[2021-05-07] MEDS: BENZOCAINE/MENTH/CETYLPYRD CL 1 EACH LOZENGE MM PRN (06:23)
[2021-05-07 06:45] VITALS: BP 153/66; PULSE 89; TEMP 98.8
[2021-05-07] MEDS: POLYETHYLENE GLYCOL (HEALTHYLAX) 3350 17 GM PACKET PO SCH (09:46)
[2021-05-07] MEDS: CALCIUM ACETATE 667 MG CAPSULE (FP) PO SCH (09:46)
[2021-05-07] MEDS: VITAMIN B COMP W-C 1 EA TABLET (NEPHRO-VITE) PO SCH (09:46)
[2021-05-07] MEDS: QUEtiapine FUMARATE 100 MG TABLET (FP) PO SCH (09:46)
[2021-05-07] MEDS: FERROUS SO4 325 MG TABLET (FP) PO SCH (09:46)
[2021-05-07] MEDS: CHOLECALCIFEROL (VIT D3) 1,000 UNIT (25 MCG) TABLET PO SCH (09:46)
[2021-05-07] MEDS: CALCITRIOL 0.25 MCG CAPSULE (FP) PO SCH (09:47)
[2021-05-07] MEDS: DULoxetine HCL 20 MG CAPSULE.DR PO SCH (09:47)
[2021-05-07] MEDS ORDERED: ALPRAZolam 0.25 MG TABLET PO PRN (09:59)
== END 2021-05-07 10:20 | DRG 682 ==
LOC: JER 12:43 → JERBED 16:37 → J5S 04-20 15:17
PROVIDERS: ATTEND Nurse Practitioner Acute Care
PROC: 5A1D70Z Performance of Urinary Filtration, Intermittent, Less than 6 Hours Per Day (ICD-10-PCS; principal; 2021-05-06)
DX: I12.0 Hypertensive chronic kidney disease with stage 5 chronic kidney disease or end stage renal disease (principal); N18.6 End stage renal disease; F33.1 Major depressive disorder, recurrent, moderate; Z91.15 Patient's noncompliance with renal dialysis; F25.9 Schizoaffective disorder, unspecified; E11.9 Type 2 diabetes mellitus without complications; K21.9 Gastro-esophageal reflux disease without esophagitis; D64.9 Anemia, unspecified; J44.9 Chronic obstructive pulmonary disease, unspecified
CPT/HCPCS: 36415; 71045-TC-FY; 80048; 80053; 80076; 82962; 83735; 84100; 85025; 85027; 85610; 85730; 86705; 86707; 86803; 87350; 87522; 93005; 93010; 97116-GP; 97161-GP; 99285-25; C9803-CS; J1644; Q5106; U0003; U0005

== ENCOUNTER 2021-05-14 16:19 | Observation (INO) | payer OTHER ==
[2021-05-14] MEDS ORDERED: LORazepam 1 MG TABLET PO ONE (17:03)
[2021-05-14] MEDS ORDERED: LORazepam 1 MG TABLET ONE (17:26)
[2021-05-14] MEDS ORDERED: QUEtiapine FUMARATE 100 MG TABLET (FP) PO ONE (18:29)
[2021-05-14 18:51] LABS: INR 0.98 (0.83-1.09); PROTHROMBIN TIME (PATIENT) 11.3 SEC (9.7-13.0)
[2021-05-14 18:54] LABS: ACTIVATED PTT 37.7 SECONDS (25.2-36.5)
[2021-05-14 18:55] LABS: BASO % 0.7 % (0-2.0); EOS % 4.7 % (0-4.5); HEMATOCRIT 26.5 % (32.4-45.2); HEMOGLOBIN 8.8 GM/dL (10.7-15.3); LYMPH % 19.8 % (8-40); MCH 30.7 pg (25.7-33.7); MCHC 33.2 g/dl (32.0-36.0); MEAN CELL VOLUME 92.5 fl (80-96); MEAN PLT VOLUME 8.9 fl (7.5-11.1); MONO % 7.3 % (3.8-10.2); NEUT % 67.5 % (42.8-82.8); PLATELET COUNT 186 10^3/uL (134-434); RBC 2.87 M/mm3 (3.60-5.2); RDW 14.6 % (11.6-15.6); WHITE BLOOD COUNT 7.1 K/mm3 (4.0-10.0)
[2021-05-14] MEDS ORDERED: MELATONIN 5 MG TABLETS PO ONE (18:55)
[2021-05-14 19:09] LABS: BLOOD UREA NITROGEN 54.2 mg/dL (7-18); CALCIUM 9.4 mg/dL (8.5-10.1); MAGNESIUM 2.5 mg/dL (1.8-2.4)
[2021-05-14 19:10] LABS: ALBUMIN 3.5 g/dl (3.4-5.0)
[2021-05-14 19:13] LABS: CREATININE 3.8 mg/dL (0.55-1.3)
[2021-05-14 19:14] LABS: BILIRUBIN,TOTAL 0.3 mg/dL (0.2-1); TOT PROT 7.5 g/dl (6.4-8.2)
[2021-05-14] MEDS ORDERED: QUEtiapine FUMARATE 100 MG TABLET (FP) ONE (19:52)
[2021-05-14] MEDS ORDERED: MELATONIN 5 MG TABLETS ONE (19:52)
[2021-05-15 06:54] VITALS: BMI 25.0
[2021-05-15] MEDS ORDERED: SODIUM CHLORIDE 250 ML IV PRN ×2 (07:40→13:18)
[2021-05-15] MEDS ORDERED: EPOETIN ALFA-EPBX 10,000 UNIT/ML VIAL SQ ONE ×2 (07:40→13:30)
[2021-05-15] MEDS ORDERED: HEPARIN NA (PORCINE) 5,000 UNITS/ML 1ML VIAL IVPUSH ONE ×2 (07:40→13:30)
[2021-05-15] MEDS ORDERED: LIDOCAINE HCL 1%, 10 MG/ML (20ML VIAL) NR ONE ×2 (09:30→10:30)
[2021-05-15] MEDS ORDERED: PROPOFOL 20 ML ONE ×2 (09:41)
[2021-05-15] MEDS ORDERED: LIDOCAINE HCL/PF 2% SDV 5ML VIAL ONE (09:41)
[2021-05-15] MEDS ORDERED: MIDAZOLAM HCL 2 MG/2 ML SINGLE DOSE VIAL ONE ×2 (09:44→09:58)
[2021-05-15 13:30] LABS: BASO % 0.5 % (0-2.0); EOS % 5.2 % (0-4.5); HEMATOCRIT 27.1 % (32.4-45.2); HEMOGLOBIN 9.1 GM/dL (10.7-15.3); LYMPH % 20.2 % (8-40); MCH 31.2 pg (25.7-33.7); MCHC 33.5 g/dl (32.0-36.0); MEAN CELL VOLUME 93.1 fl (80-96); MEAN PLT VOLUME 8.3 fl (7.5-11.1); MONO % 6.3 % (3.8-10.2); NEUT % 67.8 % (42.8-82.8); PLATELET COUNT 188 10^3/uL (134-434); RBC 2.92 M/mm3 (3.60-5.2); RDW 14.1 % (11.6-15.6)
[2021-05-15 14:24] LABS: BLOOD UREA NITROGEN 59.8 mg/dL (7-18); CALCIUM 9.2 mg/dL (8.5-10.1); CREATININE 4.2 mg/dL (0.55-1.3)
[2021-05-15] MEDS ORDERED: MELATONIN 5 MG TABLETS PO PRN (17:21)
[2021-05-15] MEDS: LORazepam 0.5 MG TABLET PO PRN (18:10)
[2021-05-15] MEDS: oxyCODONE HCL 5 MG TABLET PO PRN (18:18)
[2021-05-16] MEDS: oxyCODONE HCL 5 MG TABLET PO PRN (09:52)
[2021-05-16] MEDS: LORazepam 0.5 MG TABLET PO PRN (09:54)
[2021-05-16 14:44] VITALS: BP 114/66; PULSE 92; TEMP 98.5
== END 2021-05-16 15:24 ==
LOC: JER 16:19 → JERBED 17:11 → J5S 23:42
PROVIDERS: ADMIT Hospitalist; ATTEND Family Medicine
PROC: 3E023GC Introduction of Other Therapeutic Substance into Muscle, Percutaneous Approach (ICD-10-PCS; principal; 2021-05-14)
PROC: 3E033GC Introduction of Other Therapeutic Substance into Peripheral Vein, Percutaneous Approach (ICD-10-PCS; 2021-05-14)
PROC: 05HM33Z Insertion of Infusion Device into Right Internal Jugular Vein, Percutaneous Approach (ICD-10-PCS; 2021-05-14)
PROC: B543ZZA Ultrasonography of Right Jugular Veins, Guidance (ICD-10-PCS; 2021-05-14)
DX: I13.11 Hypertensive heart and chronic kidney disease without heart failure, with stage 5 chronic kidney disease, or end stage renal disease (principal); E11.22 Type 2 diabetes mellitus with diabetic chronic kidney disease; T82.898A Other specified complication of vascular prosthetic devices, implants and grafts, initial encounter; Z99.2 Dependence on renal dialysis; N18.6 End stage renal disease; K21.9 Gastro-esophageal reflux disease without esophagitis; R50.9 Fever, unspecified; K21.00 Gastro-esophageal reflux disease with esophagitis, without bleeding; K44.9 Diaphragmatic hernia without obstruction or gangrene; B37.9 Candidiasis, unspecified; Z87.891 Personal history of nicotine dependence; F25.9 Schizoaffective disorder, unspecified; G89.29 Other chronic pain; R10.30 Lower abdominal pain, unspecified; F32.9 Major depressive disorder, single episode, unspecified
CPT/HCPCS: 36415; 71045-TC-FY; 76000-TC-FY; 80048; 80053; 83735; 84100; 85025; 85610; 85730; 86803; 86850; 86900; 86901; 87040; 87340; 93005; 93010; 94760; 96372; 96374; 99285-25; C9803-CS; G0378; J1644; Q5106; U0003; U0005

== ENCOUNTER 2021-08-21 14:58 | Inpatient (IN) | payer OTHER ==
[2021-08-21 15:29] VITALS: BMI 25.4
[2021-08-21] MEDS ORDERED: ACETAMINOPHEN 1000 MG/100 ML BAG IVPB ONE (17:02)
[2021-08-21 17:09] LABS: VENOUS BASE EXCESS -3.6 mmol/L (-2-2); VENOUS PCO2 45.8 mmHg (38-52); VENOUS PH 7.31 (7.310-7.410)
[2021-08-21 17:10] LABS: BASO % 0.5 % (0-2.0); EOS % 0.6 % (0-4.5); HEMOGLOBIN 9.7 GM/dL (10.7-15.3); LYMPH % 9.4 % (8-40); MCH 30.6 pg (25.7-33.7); MCHC 32.2 g/dl (32.0-36.0); MEAN PLT VOLUME 10.1 fl (7.5-11.1); MONO % 12.9 % (3.8-10.2); NEUT % 76.6 % (42.8-82.8); PLATELET COUNT 66 10^3/uL (134-434); RBC 3.16 M/mm3 (3.60-5.2); RDW 16.6 % (11.6-15.6); WHITE BLOOD COUNT 7.3 K/mm3 (4.0-10.0)
[2021-08-21 17:18] LABS: INR 1.13 (0.83-1.09)
[2021-08-21 17:21] LABS: ACTIVATED PTT 33.9 SECONDS (25.2-36.5)
[2021-08-21 17:29] LABS: EPI CELLS 21 /uL (0-25.1); HYALINE CASTS 1 /uL (0-3.1); URINE APPEARANCE TURBID; URINE BACTERIA 461 /uL (0-1359); URINE BILIRUBIN NEGATIVE (NEGATIVE); URINE COLOR YELLOW; URINE GLUCOSE (UA) 2+ (NEGATIVE); URINE KETONE NEGATIVE (NEGATIVE); URINE LEUK ESTERASE 2+ (NEGATIVE); URINE NITRITE NEGATIVE (NEGATIVE); URINE PROTEIN 4+ (NEGATIVE); URINE RBC 13 /uL (0-23.9); URINE UROBILINOGEN 0.2 mg/dL (0.2-1.0); URINE WBC 1905 /uL (0-25.8)
[2021-08-21 17:37] LABS: CHLORIDE 91 mmol/L (98-107); SODIUM 132 mmol/L (136-145)
[2021-08-21 17:39] LABS: ANISOCYTOSIS 1+; CALCIUM 8.3 mg/dL (8.5-10.1); MACROCYTOSIS 1+
[2021-08-21 17:40] LABS: ALBUMIN 2.7 g/dl (3.4-5.0); ANION GAP 19 MMOL/L (8-16); CO2 22 mmol/L (21-32); GLUCOSE,RANDOM 367 mg/dL (74-106); MAGNESIUM 2.9 mg/dL (1.8-2.4)
[2021-08-21 17:43] LABS: PHOSPHOROUS 6.2 mg/dL (2.5-4.9); SGOT/AST 52 U/L (15-37); SGPT/ALT 30 U/L (13-61)
[2021-08-21 17:44] LABS: BILIRUBIN,TOTAL 0.6 mg/dL (0.2-1)
[2021-08-21 17:46] LABS: ALK PHOS 90 U/L (45-117)
[2021-08-21 17:49] LABS: BLOOD UREA NITROGEN 119.5 mg/dL (7-18); CREATININE 8.6 mg/dL (0.55-1.3)
[2021-08-21] MEDS ORDERED: ACETAMINOPHEN INJECTION 100 ML IVPB ONE (18:28)
[2021-08-21] MEDS ORDERED: CEFTRIAXONE 1,000 MG in DEXTROSE 5%-WATER - 50 ML IVPB ONE (18:54)
[2021-08-21] MEDS ORDERED: CEFTRIAXONE 1 GM/50 ML BAG ONE (19:05)
[2021-08-21] MEDS ORDERED: SODIUM CHLORIDE 250 ML IV STA ×2 (20:37→21:20)
[2021-08-22 06:31] LABS: HEMATOCRIT 26.5 % (32.4-45.2); HEMOGLOBIN 8.7 GM/dL (10.7-15.3); MCH 30.9 pg (25.7-33.7); MCHC 32.9 g/dl (32.0-36.0); MEAN CELL VOLUME 93.9 fl (80-96); MEAN PLT VOLUME 10.8 fl (7.5-11.1); PLATELET COUNT 67 10^3/uL (134-434); RBC 2.82 M/mm3 (3.60-5.2); RDW 16.5 % (11.6-15.6); WHITE BLOOD COUNT 8.7 K/mm3 (4.0-10.0)
[2021-08-22 06:52] LABS: CHLORIDE 96 mmol/L (98-107); SODIUM 134 mmol/L (136-145)
[2021-08-22 06:53] LABS: CALCIUM 7.6 mg/dL (8.5-10.1); GLUCOSE,RANDOM 275 mg/dL (74-106)
[2021-08-22 06:54] LABS: ALBUMIN 2.4 g/dl (3.4-5.0); ANION GAP 18 MMOL/L (8-16); CO2 21 mmol/L (21-32)
[2021-08-22 06:57] LABS: SGOT/AST 43 U/L (15-37); SGPT/ALT 31 U/L (13-61)
[2021-08-22 06:59] LABS: BILIRUBIN,TOTAL 0.4 mg/dL (0.2-1); TOT PROT 5.9 g/dl (6.4-8.2)
[2021-08-22 07:00] LABS: ALK PHOS 81 U/L (45-117)
[2021-08-22 07:02] LABS: CREATININE 9.1 mg/dL (0.55-1.3)
[2021-08-22] MEDS ORDERED: SODIUM CHLORIDE 250 ML IV PRN (08:07)
[2021-08-22] MEDS ORDERED: HEPARIN NA (PORCINE) 5,000 UNITS/ML 1ML VIAL IVPUSH ONE (08:15)
[2021-08-22] MEDS ORDERED: EPOETIN ALFA-EPBX 4,000 UNIT/ML VIAL SQ ONE (09:00)
[2021-08-22] MEDS ORDERED: ALBUTEROL SO4 2.5/IPRATROPIUM 0.5 INH SOL 3 ML VIAL.NEB. NEB PRN (13:37)
[2021-08-22] MEDS ORDERED: DOCUSATE SODIUM 100 MG CAPSULE (FP) PO PRN (13:37)
[2021-08-22] MEDS ORDERED: VANCOMYCIN 1 GRAM (PRE-DOCKED) 1,000 MG/250 ML BAG IVPB ONE ×2 (14:06→15:09)
[2021-08-22] MEDS ORDERED: INSULIN SLIDING SCALE (NOVOLOG) 1 VIAL SQ SCH (16:30)
[2021-08-22] MEDS ORDERED: CEFTRIAXONE 1 GM/50 ML BAG ONE (16:33)
[2021-08-22] MEDS ORDERED: CEFTRIAXONE 1 GM in DEXTROSE 5%-WATER - 50 ML IVPB SCH (18:00)
[2021-08-22] MEDS ORDERED: hydrALAZINE HCL 10 MG TABLET ONE (21:06)
[2021-08-22] MEDS ORDERED: QUEtiapine FUMARATE 100 MG TABLET (FP) ONE (21:06)
[2021-08-22] MEDS: hydrALAZINE HCL 10 MG TABLET PO SCH (21:24)
[2021-08-22] MEDS: CALCIUM ACETATE 667 MG CAPSULE (FP) PO SCH (21:33)
[2021-08-22] MEDS: SODIUM BICARBONATE 650 MG TABLET PO SCH (21:33)
[2021-08-22] MEDS: QUEtiapine FUMARATE 100 MG TABLET (FP) PO SCH (21:33)
[2021-08-22] MEDS ORDERED: oxyCODONE HCL 5 MG TABLET ONE (23:12)
[2021-08-22] MEDS ORDERED: LORazepam 1 MG TABLET ONE (23:12)
[2021-08-22] MEDS: oxyCODONE HCL 5 MG TABLET PO PRN (23:17)
[2021-08-22] MEDS: LORazepam 1 MG TABLET PO PRN (23:17)
[2021-08-23] MEDS: CALCIUM ACETATE 667 MG CAPSULE (FP) PO SCH ×3 (08:50→16:42)
[2021-08-23] MEDS ORDERED: DEXTROSE 5%-WATER - 50 ML IVPB ONE (09:46)
[2021-08-23] MEDS ORDERED: ceFAZolin SODIUM 1 GM VIAL ONE (09:46)
[2021-08-23] MEDS: SODIUM BICARBONATE 650 MG TABLET PO SCH (10:04)
[2021-08-23] MEDS: hydrALAZINE HCL 10 MG TABLET PO SCH (10:04)
[2021-08-23] MEDS: FERROUS SO4 325 MG TABLET (FP) PO SCH (10:04)
[2021-08-23] MEDS: CEFAZOLIN 1 GM in DEXTROSE 5%-WATER - 1 GM/50 ML IVPB IVPB SCH (10:04)
[2021-08-23] MEDS: QUEtiapine FUMARATE 100 MG TABLET (FP) PO SCH ×2 (10:05→22:19)
[2021-08-23] MEDS: DULoxetine HCL 20 MG CAPSULE.DR PO SCH (10:05)
[2021-08-23] MEDS: INSULIN SLIDING SCALE (NOVOLOG) 1 VIAL SQ SCH ×3 (11:05→22:32)
[2021-08-23 13:21] LABS: BASO % 0.2 % (0-2.0); EOS % 1.4 % (0-4.5); HEMATOCRIT 25.6 % (32.4-45.2); HEMOGLOBIN 8.3 GM/dL (10.7-15.3); LYMPH % 10.4 % (8-40); MCH 30.6 pg (25.7-33.7); MCHC 32.6 g/dl (32.0-36.0); MEAN CELL VOLUME 93.7 fl (80-96); MEAN PLT VOLUME 10.3 fl (7.5-11.1); MONO % 6.1 % (3.8-10.2); NEUT % 81.9 % (42.8-82.8); PLATELET COUNT 66 10^3/uL (134-434); RBC 2.73 M/mm3 (3.60-5.2); RDW 17.3 % (11.6-15.6); WHITE BLOOD COUNT 8.4 K/mm3 (4.0-10.0)
[2021-08-24] MEDS ORDERED: VANCOMYCIN 1 GRAM (PRE-DOCKED) 1,000 MG/250 ML BAG IVPB ONE (01:11)
[2021-08-24] MEDS: oxyCODONE HCL 5 MG TABLET PO PRN ×2 (03:27→18:46)
[2021-08-24] MEDS: LORazepam 1 MG TABLET PO PRN ×2 (04:27→22:39)
[2021-08-24] MEDS: INSULIN SLIDING SCALE (NOVOLOG) 1 VIAL SQ SCH ×4 (06:56→22:39)
[2021-08-24] MEDS ORDERED: ceFAZolin SODIUM 1 GM VIAL ONE (08:15)
[2021-08-24] MEDS ORDERED: DEXTROSE 5%-WATER - 50 ML IVPB ONE (08:15)
[2021-08-24] MEDS ORDERED: EPOETIN ALFA-EPBX 4,000 UNIT/ML VIAL IVPUSH ONE (09:00)
[2021-08-24] MEDS: DULoxetine HCL 20 MG CAPSULE.DR PO SCH (09:16)
[2021-08-24] MEDS: QUEtiapine FUMARATE 100 MG TABLET (FP) PO SCH ×2 (09:17→22:39)
[2021-08-24] MEDS: CALCIUM ACETATE 667 MG CAPSULE (FP) PO SCH ×3 (09:17→17:58)
[2021-08-24] MEDS: FERROUS SO4 325 MG TABLET (FP) PO SCH (09:18)
[2021-08-24] MEDS: CEFAZOLIN 1 GM in DEXTROSE 5%-WATER - 1 GM/50 ML IVPB IVPB SCH (09:18)
[2021-08-24 09:29] LABS: HEMATOCRIT 25.4 % (32.4-45.2); HEMOGLOBIN 8.2 GM/dL (10.7-15.3); MCH 30.6 pg (25.7-33.7); MCHC 32.5 g/dl (32.0-36.0); MEAN CELL VOLUME 94.2 fl (80-96); MEAN PLT VOLUME 9.6 fl (7.5-11.1); PLATELET COUNT 83 10^3/uL (134-434); RDW 17.2 % (11.6-15.6); WHITE BLOOD COUNT 12.6 K/mm3 (4.0-10.0)
[2021-08-24 09:56] LABS: CALCIUM 8.2 mg/dL (8.5-10.1)
[2021-08-24 09:57] LABS: CREATININE 6.4 mg/dL (0.55-1.3)
[2021-08-24 10:04] LABS: BLOOD UREA NITROGEN 91.8 mg/dL (7-18)
[2021-08-24] MEDS: AMINO ACIDS/PROTEIN HYDROLYS 30 ML LIQUID.PKT PO SCH (17:58)
[2021-08-25] MEDS: oxyCODONE HCL 5 MG TABLET PO PRN (04:48)
[2021-08-25] MEDS: INSULIN SLIDING SCALE (NOVOLOG) 1 VIAL SQ SCH ×4 (06:21→22:23)
[2021-08-25] MEDS ORDERED: ceFAZolin SODIUM 1 GM VIAL ONE ×2 (08:45→21:41)
[2021-08-25] MEDS ORDERED: DEXTROSE 5%-WATER - 50 ML IVPB ONE ×2 (08:45→21:41)
[2021-08-25] MEDS: CALCIUM ACETATE 667 MG CAPSULE (FP) PO SCH ×3 (08:51→16:31)
[2021-08-25] MEDS: AMINO ACIDS/PROTEIN HYDROLYS 30 ML LIQUID.PKT PO SCH ×2 (08:51→16:32)
[2021-08-25] MEDS: FERROUS SO4 325 MG TABLET (FP) PO SCH (09:03)
[2021-08-25] MEDS: QUEtiapine FUMARATE 100 MG TABLET (FP) PO SCH ×2 (09:03→22:24)
[2021-08-25] MEDS: CEFAZOLIN 1 GM in DEXTROSE 5%-WATER - 1 GM/50 ML IVPB IVPB SCH ×2 (09:03→22:24)
[2021-08-25] MEDS: DULoxetine HCL 20 MG CAPSULE.DR PO SCH (09:03)
[2021-08-25] MEDS: VITAMIN B COMP W-C 1 EA TABLET (NEPHRO-VITE) PO SCH (09:03)
[2021-08-25] MEDS: ACETAMINOPHEN 325 MG TABLET (FP) PO PRN (15:34)
[2021-08-26] MEDS: INSULIN SLIDING SCALE (NOVOLOG) 1 VIAL SQ SCH ×4 (06:24→21:59)
[2021-08-26 07:58] LABS: BASO % 0.4 % (0-2.0); EOS % 1.8 % (0-4.5); HEMATOCRIT 26.4 % (32.4-45.2); HEMOGLOBIN 8.4 GM/dL (10.7-15.3); LYMPH % 8.1 % (8-40); MCH 30.1 pg (25.7-33.7); MCHC 31.6 g/dl (32.0-36.0); MEAN PLT VOLUME 9.9 fl (7.5-11.1); MONO % 5.2 % (3.8-10.2); NEUT % 84.5 % (42.8-82.8); PLATELET COUNT 109 10^3/uL (134-434); RBC 2.78 M/mm3 (3.60-5.2); RDW 16.7 % (11.6-15.6); WHITE BLOOD COUNT 12.6 K/mm3 (4.0-10.0)
[2021-08-26 09:31] LABS: BLOOD UREA NITROGEN 70.5 mg/dL (7-18); CALCIUM 7.7 mg/dL (8.5-10.1)
[2021-08-26 09:35] LABS: CREATININE 5.8 mg/dL (0.55-1.3)
[2021-08-26] MEDS ORDERED: DEXTROSE 5%-WATER - 50 ML IVPB ONE ×2 (09:54→21:20)
[2021-08-26] MEDS ORDERED: ceFAZolin SODIUM 1 GM VIAL ONE ×2 (09:54→21:19)
[2021-08-26] MEDS: CEFAZOLIN 1 GM in DEXTROSE 5%-WATER - 1 GM/50 ML IVPB IVPB SCH ×2 (10:12→21:33)
[2021-08-26] MEDS: FERROUS SO4 325 MG TABLET (FP) PO SCH (10:15)
[2021-08-26] MEDS: DULoxetine HCL 20 MG CAPSULE.DR PO SCH (10:15)
[2021-08-26] MEDS: CALCIUM ACETATE 667 MG CAPSULE (FP) PO SCH ×4 (10:15→18:40)
[2021-08-26] MEDS: QUEtiapine FUMARATE 100 MG TABLET (FP) PO SCH ×2 (10:15→21:34)
[2021-08-26] MEDS: AMINO ACIDS/PROTEIN HYDROLYS 30 ML LIQUID.PKT PO SCH ×2 (10:15→18:40)
[2021-08-26] MEDS: VITAMIN B COMP W-C 1 EA TABLET (NEPHRO-VITE) PO SCH (10:15)
[2021-08-26] MEDS: ACETAMINOPHEN 325 MG TABLET (FP) PO PRN (20:45)
[2021-08-27] MEDS: INSULIN SLIDING SCALE (NOVOLOG) 1 VIAL SQ SCH ×4 (06:47→21:42)
[2021-08-27] MEDS: CALCIUM ACETATE 667 MG CAPSULE (FP) PO SCH ×3 (08:00→17:53)
[2021-08-27] MEDS: AMINO ACIDS/PROTEIN HYDROLYS 30 ML LIQUID.PKT PO SCH ×2 (08:06→17:53)
[2021-08-27] MEDS: CEFAZOLIN 1 GM in DEXTROSE 5%-WATER - 1 GM/50 ML IVPB IVPB SCH ×2 (09:00→21:42)
[2021-08-27] MEDS ORDERED: ceFAZolin SODIUM 1 GM VIAL ONE ×2 (09:35→21:21)
[2021-08-27] MEDS ORDERED: DEXTROSE 5%-WATER - 50 ML IVPB ONE ×2 (09:35→21:21)
[2021-08-27] MEDS: DULoxetine HCL 20 MG CAPSULE.DR PO SCH (10:07)
[2021-08-27] MEDS: FERROUS SO4 325 MG TABLET (FP) PO SCH (10:07)
[2021-08-27] MEDS: QUEtiapine FUMARATE 100 MG TABLET (FP) PO SCH ×2 (10:07→21:42)
[2021-08-27] MEDS: VITAMIN B COMP W-C 1 EA TABLET (NEPHRO-VITE) PO SCH (10:07)
[2021-08-27 14:31] LABS: HEMATOCRIT 26.8 % (32.4-45.2); HEMOGLOBIN 8.6 GM/dL (10.7-15.3); MCH 30.4 pg (25.7-33.7); MEAN CELL VOLUME 95.1 fl (80-96); MEAN PLT VOLUME 8.6 fl (7.5-11.1); PLATELET COUNT 99 10^3/uL (134-434); RBC 2.82 M/mm3 (3.60-5.2); RDW 17.2 % (11.6-15.6); WHITE BLOOD COUNT 9.5 K/mm3 (4.0-10.0)
[2021-08-27 15:01] LABS: ALBUMIN 2.3 g/dl (3.4-5.0); BLOOD UREA NITROGEN 83.5 mg/dL (7-18); CALCIUM 7.6 mg/dL (8.5-10.1)
[2021-08-27 15:04] LABS: CREATININE 6.2 mg/dL (0.55-1.3)
[2021-08-27 15:06] LABS: BILIRUBIN,TOTAL 0.5 mg/dL (0.2-1); TOT PROT 6.6 g/dl (6.4-8.2)
[2021-08-28] MEDS: INSULIN SLIDING SCALE (NOVOLOG) 1 VIAL SQ SCH ×4 (07:02→21:37)
[2021-08-28 07:26] LABS: BASO % 0.4 % (0-2.0); EOS % 1.6 % (0-4.5); HEMATOCRIT 26.5 % (32.4-45.2); HEMOGLOBIN 8.6 GM/dL (10.7-15.3); LYMPH % 9.5 % (8-40); MCH 30.8 pg (25.7-33.7); MCHC 32.4 g/dl (32.0-36.0); MEAN CELL VOLUME 95.2 fl (80-96); MEAN PLT VOLUME 8.5 fl (7.5-11.1); MONO % 7.1 % (3.8-10.2); NEUT % 81.4 % (42.8-82.8); PLATELET COUNT 109 10^3/uL (134-434); RBC 2.79 M/mm3 (3.60-5.2); RDW 17.1 % (11.6-15.6); WHITE BLOOD COUNT 10.3 K/mm3 (4.0-10.0)
[2021-08-28 07:39] LABS: CHLORIDE 100 mmol/L (98-107); SODIUM 137 mmol/L (136-145)
[2021-08-28 07:49] LABS: CALCIUM 7.9 mg/dL (8.5-10.1)
[2021-08-28 07:50] LABS: ALBUMIN 2.4 g/dl (3.4-5.0); ANION GAP 13 MMOL/L (8-16); BLOOD UREA NITROGEN 94.8 mg/dL (7-18); CO2 25 mmol/L (21-32); GLUCOSE,RANDOM 211 mg/dL (74-106)
[2021-08-28 07:52] LABS: CREATININE 6.7 mg/dL (0.55-1.3)
[2021-08-28 07:53] LABS: SGOT/AST 15 U/L (15-37)
[2021-08-28 07:54] LABS: BILIRUBIN,TOTAL 0.4 mg/dL (0.2-1); TOT PROT 6.6 g/dl (6.4-8.2)
[2021-08-28 07:55] LABS: ALK PHOS 82 U/L (45-117)
[2021-08-28 07:58] LABS: SGPT/ALT < 6 U/L (13-61)
[2021-08-28] MEDS ORDERED: ceFAZolin SODIUM 1 GM VIAL ONE (09:18)
[2021-08-28] MEDS ORDERED: DEXTROSE 5%-WATER - 50 ML IVPB ONE (09:18)
[2021-08-28] MEDS: CALCIUM ACETATE 667 MG CAPSULE (FP) PO SCH ×3 (09:24→18:07)
[2021-08-28] MEDS: AMINO ACIDS/PROTEIN HYDROLYS 30 ML LIQUID.PKT PO SCH ×2 (09:25→18:08)
[2021-08-28] MEDS: CEFAZOLIN 1 GM in DEXTROSE 5%-WATER - 1 GM/50 ML IVPB IVPB SCH (09:25)
[2021-08-28] MEDS: FERROUS SO4 325 MG TABLET (FP) PO SCH (09:27)
[2021-08-28] MEDS: VITAMIN B COMP W-C 1 EA TABLET (NEPHRO-VITE) PO SCH (09:27)
[2021-08-28] MEDS: DULoxetine HCL 20 MG CAPSULE.DR PO SCH (09:27)
[2021-08-28] MEDS: QUEtiapine FUMARATE 100 MG TABLET (FP) PO SCH ×2 (09:27→21:19)
[2021-08-28] MEDS ORDERED: NAFCILLIN NA 2 GM VIAL IVPB ONE ×3 (10:32→21:16)
[2021-08-28] MEDS ORDERED: DEXTROSE 5%-WATER 100 ML IVPB ONE ×3 (10:33→21:16)
[2021-08-28] MEDS: NAFCILLIN - 2 GM in DEXTROSE 5%-WATER 100 ML IVPB SCH ×4 (10:43→21:22)
[2021-08-28] MEDS ORDERED: SODIUM CHLORIDE 250 ML IV PRN ×2 (13:15→17:27)
[2021-08-28] MEDS ORDERED: EPOETIN ALFA-EPBX 10,000 UNIT/ML VIAL IVPUSH ONE (13:15)
[2021-08-28 22:08] VITALS: BP 120/61; PULSE 94; TEMP 98.8
[2021-08-29] MEDS ORDERED: EPOETIN ALFA-EPBX 10,000 UNIT/ML VIAL SQ ONE (17:27)
== END 2021-08-29 01:05 | disposition short-term general hospital (02) | DRG 314 ==
LOC: JER 14:58 → JERBED 18:26 → J2W 08-23 09:17
PROVIDERS: ADMIT Hospitalist; ATTEND Family Medicine
PROC: 05PYX3Z Removal of Infusion Device from Upper Vein, External Approach (ICD-10-PCS; 2021-08-25)
PROC: 05HY33Z Insertion of Infusion Device into Upper Vein, Percutaneous Approach (ICD-10-PCS; principal; 2021-08-28)
PROC: 5A1D70Z Performance of Urinary Filtration, Intermittent, Less than 6 Hours Per Day (ICD-10-PCS; 2021-08-28)
DX: T82.7XXA Infection and inflammatory reaction due to other cardiac and vascular devices, implants and grafts, initial encounter (principal); N18.6 End stage renal disease; G93.41 Metabolic encephalopathy; I12.0 Hypertensive chronic kidney disease with stage 5 chronic kidney disease or end stage renal disease; N39.0 Urinary tract infection, site not specified; I24.8 Other forms of acute ischemic heart disease; R78.81 Bacteremia; F33.9 Major depressive disorder, recurrent, unspecified; I38 Endocarditis, valve unspecified; T82.6XXA Infection and inflammatory reaction due to cardiac valve prosthesis, initial encounter; E11.22 Type 2 diabetes mellitus with diabetic chronic kidney disease; Z99.2 Dependence on renal dialysis; J44.9 Chronic obstructive pulmonary disease, unspecified; E11.65 Type 2 diabetes mellitus with hyperglycemia; F25.1 Schizoaffective disorder, depressive type; D69.59 Other secondary thrombocytopenia; D63.1 Anemia in chronic kidney disease; K21.9 Gastro-esophageal reflux disease without esophagitis; F41.8 Other specified anxiety disorders; E87.6 Hypokalemia; Y83.9 Surgical procedure, unspecified as the cause of abnormal reaction of the patient, or of later complication, without mention of misadventure at the time of the procedure
CPT/HCPCS: 36415; 70450-TC; 71045-TC-FY; 80048; 80053; 81003; 82550; 82553; 82803; 82962; 83605; 83735; 84100; 84484; 85025; 85027; 85610; 85730; 86803; 86850; 86900; 86901; 87040; 87086; 87186; 87340; 93005; 93010; 93306-TC; 99285-25; C9803-CS; G0480; J1644; Q5106; U0003; U0005